=== PATIENT | male | born 1950 | race Caucasian/White ===

== ENCOUNTER → 2020-12-14 10:03 | Outpatient (POV) | payer MEDICARE, SELFPAY | PROVIDERS: Visit Provider Dermatology | DX: Z00.00 Encounter for general adult medical examination without abnormal findings (principal) ==

== ENCOUNTER → 2021-01-18 13:38 | Outpatient (POV) | payer MEDICARE, SELFPAY | PROVIDERS: Visit Provider Dermatology | DX: Z00.00 Encounter for general adult medical examination without abnormal findings (principal) ==

== ENCOUNTER → 2021-07-19 15:08 | Outpatient (POV) | payer MEDICARE, SELFPAY | PROVIDERS: Visit Provider Dermatology | DX: Z00.00 Encounter for general adult medical examination without abnormal findings (principal) ==

== ENCOUNTER → 2021-11-29 14:10 | Outpatient (CLI) | payer MEDICARE, SELFPAY ==
[2021-11-29 14:48] LABS: Basophils # 0.1 K/mm3 (0-0.2); Basophils % 0.9 % (0.1-2.0); Eosinophils # 0.6 K/mm3 (0.0-0.4); Eosinophils % 6.2 % (0.1-12.0); Hematocrit 42.4 % (42.0-52.0); Hemoglobin 13.6 g/dL (14.1-18.0); Lymphocytes # 2.1 K/mm3 (0.7-4.5); Lymphocytes % 22.4 % (10-50); Mean Corpuscular Hemoglobin 31.4 pg (27.0-31.2); Mean Corpuscular Volume 98.3 fl (80-94); Mean Platelet Volume 8.3 fl (7.4-10.4); Monocytes # 0.5 K/mm3 (0.1-1.0); Monocytes % 5.5 % (1.7-9.3); Neutrophils # 6.1 K/mm3 (1.8-7.8); Neutrophils % 65.1 % (37.0-80.0); Platelet Count 330 K/mm3 (142-424); Red Blood Count 4.31 M/mm3 (4.60-6.20); Red Cell Distribution Width 13.9 % (11.5-17.5); White Blood Count 9.4 K/mm3 (4.8-10.8)
[2021-11-29 15:10] LABS: Alanine Aminotransferase 15 U/L (12-78); Albumin Level 4.2 g/dl (3.5-5.0); Albumin/Globulin Ratio 1.4 (1.1-1.8); Alkaline Phosphatase 71 U/L (38-126); Anion Gap 17.4 mEq/L (5-15); Aspartate Amino Transferase 21 U/L (17-59); Bilirubin,Total 0.6 mg/dl (0.2-1.3); Blood Urea Nitrogen 27 mg/dl (9-20); Calcium 9.4 mg/dl (8.4-10.2); Carbon Dioxide 27 mmol/L (22.0-30.0); Chloride 101 mmol/L (98-107); Chol/HDL Ratio 4.1 (1-3.5); Cholesterol 120 mg/dl (140-200); Estimated Glomerular Filt Rate 54 ml/min (>60); GFR (African American) 66 ML/MIN (>60); Globulin 2.9 g/dL (1.3-3.2); Glucose 63 mg/dl (74-100); HDL Cholesterol 29 mg/dl (40-60); Potassium 5.4 mmoL/L (3.5-5.1); Sodium 140 mmol/L (136-145); Total Protein,Serum 7.1 g/dl (6.3-8.2); Triglycerides 98 mg/dl (30-150); VLDL Cholesterol 20 mg/dL (0-40)
[2021-11-29 15:21] LABS: Direct LDL Cholesterol 67.06 mg/dL (100-129)
[2021-11-29 15:36] LABS: Hemoglobin A1C 6.4 % (4.0-6.0)
== END ==
PROVIDERS: Visit Provider Internal Medicine
DX: E11.9 Type 2 diabetes mellitus without complications (principal); E78.5 Hyperlipidemia, unspecified
CPT/HCPCS: 80053; 80061; 83036; 85025

== ENCOUNTER → 2022-06-06 12:58 | Outpatient (CLI) | payer MEDICARE, SELFPAY ==
[2022-06-06 15:02] LABS: Hemoglobin A1C 6.4 % (4.0-6.0)
[2022-06-06 15:06] LABS: Alanine Aminotransferase 15 U/L (12-78); Albumin Level 3.8 g/dl (3.5-5.0); Albumin/Globulin Ratio 1.3 (1.1-1.8); Alkaline Phosphatase 85 U/L (38-126); Aspartate Amino Transferase 20 U/L (17-59); Bilirubin,Total 0.3 mg/dl (0.2-1.3); Blood Urea Nitrogen 27 mg/dl (9-20); Calcium 8.7 mg/dl (8.4-10.2); Carbon Dioxide 26 mmol/L (22.0-30.0); Chloride 101 mmol/L (98-107); Chol/HDL Ratio 4.6 (1-3.5); Cholesterol 114 mg/dl (140-200); Estimated Glomerular Filt Rate 54 ml/min (>60); GFR (African American) 66 ML/MIN (>60); Glucose 79 mg/dl (74-100); HDL Cholesterol 25 mg/dl (40-60); Sodium 141 mmol/L (136-145); Total Protein,Serum 6.8 g/dl (6.3-8.2); Triglycerides 113 mg/dl (30-150); VLDL Cholesterol 23 mg/dL (0-40)
[2022-06-06 15:17] LABS: Direct LDL Cholesterol 68.29 mg/dL (100-129)
[2022-06-06 15:37] LABS: Prostate Specific Ag Screen 0.3 ng/ml (0.0-4.0)
== END ==
PROVIDERS: PCP Internal Medicine; Visit Provider Internal Medicine
DX: E11.9 Type 2 diabetes mellitus without complications (principal); I10 Essential (primary) hypertension; M17.0 Bilateral primary osteoarthritis of knee; E66.01 Morbid (severe) obesity due to excess calories; Z12.5 Encounter for screening for malignant neoplasm of prostate
CPT/HCPCS: 80053; 80061; 83036; G0103

== ENCOUNTER → 2022-06-07 16:50 | Outpatient (CLI) | payer MEDICARE, SELFPAY ==
[2022-06-07 18:43] LABS: Microalbumin < 6.000 mg/L (0-16.7)
[2022-06-07 19:52] LABS: Creatinine,Urine Random 92 mg/dL (Not Estab.)
== END ==
PROVIDERS: PCP Internal Medicine; Visit Provider Internal Medicine
DX: E11.9 Type 2 diabetes mellitus without complications (principal); E66.01 Morbid (severe) obesity due to excess calories; N40.1 Benign prostatic hyperplasia with lower urinary tract symptoms
CPT/HCPCS: 82043; 82570

== ENCOUNTER → 2022-10-10 13:56 | Outpatient (POV) | payer MEDICARE, SELFPAY | PROVIDERS: Visit Provider Dermatology | DX: Z00.00 Encounter for general adult medical examination without abnormal findings (principal) ==

== ENCOUNTER → 2022-10-31 11:17 | Outpatient (CLI) | payer MEDICARE, SELFPAY ==
[2022-10-31 15:05] LABS: Anion Gap 13.6 mEq/L (5-15); Blood Urea Nitrogen 22 mg/dl (9-20); Carbon Dioxide 23 mmol/L (22.0-30.0); Chloride 108 mmol/L (98-107); Estimated Glomerular Filt Rate 60 ml/min (>60); GFR (African American) 72 ML/MIN (>60); Glucose 136 mg/dl (74-100); Potassium 4.6 mmoL/L (3.5-5.1); Sodium 140 mmol/L (136-145)
== END ==
PROVIDERS: Dermatology MOHS-Micrographic Surgery; PCP Internal Medicine
DX: C44.90 Unspecified malignant neoplasm of skin, unspecified (principal)
CPT/HCPCS: 36415; 80048

== ENCOUNTER → 2022-11-15 08:51 | Outpatient (CLI) | payer MEDICARE, SELFPAY ==
--- NOTE | 2022-11-15 08:58 | CT_ITS ---
FINAL REPORT TECHNIQUE: Thin section axial CT images were obtained through the neck after intravenous contrast administration. Coronal and sagittal reformats were also obtained. This study was performed with techniques to keep radiation doses as low as reasonably achievable (ALARA). Individualized dose reduction techniques using automated exposure control or adjustment of mA and/or kV according to the patient''s size were employed. CLINICAL HISTORY: LYMPH NODE METS, hx skin cancer. FINDINGS: There are multiple small bilateral neck nodes without evidence of adenopathy. No neck mass is identified. There is no abnormal fluid collection. IMPRESSION: No acute process. Reviewed, Interpreted and Dictated by Rg Dominguez III, MD Transcribed by Nadia Velasquez Authenticated and [facility]
== END ==
PROVIDERS: PCP Internal Medicine; Visit Provider Dermatology MOHS-Micrographic Surgery
DX: C44.90 Unspecified malignant neoplasm of skin, unspecified (principal)
CPT/HCPCS: 70491; Q9967

== ENCOUNTER → 2022-12-13 12:57 | Outpatient (CLI) | payer MEDICARE, SELFPAY ==
[2022-12-13 15:39] LABS: Hemoglobin A1C 6.6 % (4.0-6.0)
[2022-12-13 16:23] LABS: Alanine Aminotransferase 14 U/L (12-78); Albumin Level 4.1 g/dl (3.5-5.0); Albumin/Globulin Ratio 1.4 (1.1-1.8); Alkaline Phosphatase 75 U/L (38-126); Anion Gap 14.8 mEq/L (5-15); Aspartate Amino Transferase 22 U/L (17-59); Bilirubin,Total 0.7 mg/dl (0.2-1.3); Blood Urea Nitrogen 25 mg/dl (9-20); Calcium 8.8 mg/dl (8.4-10.2); Carbon Dioxide 25 mmol/L (22.0-30.0); Chloride 101 mmol/L (98-107); Chol/HDL Ratio 4.3 (1-3.5); Cholesterol 125 mg/dl (140-200); Estimated Glomerular Filt Rate 60 ml/min (>60); GFR (African American) 72 ML/MIN (>60); Glucose 55 mg/dl (74-100); HDL Cholesterol 29 mg/dl (40-60); Potassium 4.8 mmoL/L (3.5-5.1); Sodium 136 mmol/L (136-145); Total Protein,Serum 7.1 g/dl (6.3-8.2); Triglycerides 141 mg/dl (30-150); VLDL Cholesterol 28 mg/dL (0-40)
[2022-12-13 16:34] LABS: Direct LDL Cholesterol 72.71 mg/dL (100-129)
[2022-12-13 16:56] LABS: Prostate Specific Ag Screen 0.3 ng/ml (0.0-4.0)
== END ==
PROVIDERS: PCP Internal Medicine; Visit Provider Internal Medicine
DX: E11.9 Type 2 diabetes mellitus without complications (principal); E78.5 Hyperlipidemia, unspecified; I10 Essential (primary) hypertension; M17.0 Bilateral primary osteoarthritis of knee; N40.1 Benign prostatic hyperplasia with lower urinary tract symptoms; E66.01 Morbid (severe) obesity due to excess calories; Z68.41 Body mass index [BMI] 40.0-44.9, adult; Z12.5 Encounter for screening for malignant neoplasm of prostate
CPT/HCPCS: 80053; 80061; 83036; G0103

== ENCOUNTER → 2022-12-15 12:52 | Outpatient (CLI) | payer MEDICARE, SELFPAY ==
[2022-12-15 16:04] LABS: Creatinine,Urine Random 98 mg/dL (Not Estab.)
[2022-12-15 16:09] LABS: Microalbumin/Creatinine Ratio 9.2
== END ==
PROVIDERS: PCP Internal Medicine; Visit Provider Internal Medicine
DX: E11.9 Type 2 diabetes mellitus without complications (principal); I10 Essential (primary) hypertension
CPT/HCPCS: 82043; 82570

== ENCOUNTER → 2023-06-12 12:13 | Outpatient (CLI) | payer MEDICARE, SELFPAY ==
[2023-06-12 13:22] LABS: Basophils # 0.1 K/mm3 (0-0.2); Basophils % 0.6 % (0.1-2.0); Eosinophils # 0.5 K/mm3 (0.0-0.4); Eosinophils % 5.4 % (0.1-12.0); Hematocrit 41.5 % (42.0-52.0); Hemoglobin 12.8 g/dL (14.1-18.0); Lymphocytes # 2.2 K/mm3 (0.7-4.5); Lymphocytes % 22.4 % (10-50); Mean Corpuscular HGB Conc 30.9 g/dL (31.8-35.4); Mean Corpuscular Hemoglobin 28.8 pg (27.0-31.2); Monocytes # 0.6 K/mm3 (0.1-1.0); Monocytes % 5.8 % (1.7-9.3); Neutrophils # 6.5 K/mm3 (1.8-7.8); Neutrophils % 65.9 % (37.0-80.0); Platelet Count 373 K/mm3 (142-424); Red Blood Count 4.46 M/mm3 (4.60-6.20); Red Cell Distribution Width 14.4 % (11.5-17.5); White Blood Count 9.8 K/mm3 (4.8-10.8)
[2023-06-12 13:51] LABS: Chloride 105 mmol/L (98-107); Sodium 142 mmol/L (136-145)
[2023-06-12 13:54] LABS: Alanine Aminotransferase 17 U/L (12-78); Albumin Level 3.8 g/dl (3.5-5.0); Albumin/Globulin Ratio 1.1 (1.1-1.8); Alkaline Phosphatase 78 U/L (38-126); Aspartate Amino Transferase 20 U/L (17-59); Bilirubin,Total 0.5 mg/dl (0.2-1.3); Blood Urea Nitrogen 30 mg/dl (9-20); Carbon Dioxide 24 mmol/L (22.0-30.0); Cholesterol 132 mg/dl (140-200); Estimated Glomerular Filt Rate 54 ml/min (>60); GFR (African American) 66 ML/MIN (>60); Globulin 3.4 g/dL (1.3-3.2); Total Protein,Serum 7.2 g/dl (6.3-8.2); Triglycerides 111 mg/dl (30-150); VLDL Cholesterol 22 mg/dL (0-40)
[2023-06-12 13:55] LABS: Calcium 8.9 mg/dl (8.4-10.2); Chol/HDL Ratio 5.5 (1-3.5); Glucose 88 mg/dl (74-100); HDL Cholesterol 24 mg/dl (40-60)
[2023-06-12 14:05] LABS: Hemoglobin A1C 6.7 % (4.0-6.0)
== END ==
PROVIDERS: PCP Internal Medicine; Visit Provider Internal Medicine
DX: E11.9 Type 2 diabetes mellitus without complications (principal); I10 Essential (primary) hypertension; E78.5 Hyperlipidemia, unspecified; M17.0 Bilateral primary osteoarthritis of knee; N40.1 Benign prostatic hyperplasia with lower urinary tract symptoms
CPT/HCPCS: 80053; 80061; 83036; 85025

== ENCOUNTER → 2023-06-26 12:39 | Outpatient (CLI) | payer MEDICARE, SELFPAY ==
[2023-06-26 15:07] LABS: Creatinine,Urine Random 75 mg/dL (Not Estab.)
[2023-06-26 15:12] LABS: Microalbumin < 6.000 mg/L (0-16.7)
== END ==
PROVIDERS: PCP Internal Medicine; Visit Provider Internal Medicine
DX: E11.9 Type 2 diabetes mellitus without complications (principal); I10 Essential (primary) hypertension; E78.5 Hyperlipidemia, unspecified; M17.0 Bilateral primary osteoarthritis of knee; N40.1 Benign prostatic hyperplasia with lower urinary tract symptoms
CPT/HCPCS: 82043; 82570

== ENCOUNTER 2023-09-24 11:11 | Emergency (ER) | payer MEDICARE, SELFPAY ==
[2023-09-24 12:50] VITALS: BP 136/73; PULSE 84; RESP 21; TEMP 36.9; O2SAT 96; BMI 47.4
--- NOTE | 2023-09-24 13:04 | EXP.UTC ---
Discharge Plan Disposition Patient Disposition: Home, Self-Care Condition: Good Referrals Follow up/Referrals: Nader Fields MD [Primary Care Provider] - See instructions Activity Restrictions/Add. Instructions Additional Instructions/Restrictions: Over the counter Cough and cold medications may help with symptoms, where you are on so many medications make sure to speak with the pharmacist about what is safe for you to take with your current medications *Monitor Temp, Over the counter Motrin or Tylenol as directed/as needed Tylenol every 4 hours and Motrin every 6 hours (as long as your family doctor has told you that you can take it) for fever or pain. and straight to ER if unable to lower temp less than 101.0 after medication given *Warm salt water gargles may help to soothe the throat *Throat Lozenges? *Warm fluids like tea with honey may help to soothe the throat? *Sleep elevated *Humidifier/Vaporizer Follow up IMMEDIATELY for new or worsening symptoms or no Noticeable improvement over the next 48-72 hours. 911 for difficulty breathing or swallowing You were tested for today for COVID19 your test result should be back in the next 24-72 hours, you may check your results on the [facility] Portal if your COVID is positive you must Q Clinical Impressions Clinical Impression: Exposure to COVID-19 virus Instructions Patient Instructions: DI for Nasal Congestion, DI for COVID-19 (Suspected or Confirmed ) Discharge ED Provider: Honey Harry [facility] HPI General Stated complaint: sore throat, runny nose, cough, weakness Mode of Arrival: Ambulatory Source of Information: Patient Limitations: No Limitations Time Seen by Provider: 09/24/23 13:04 Description of Symptoms (Recalled from Triage Doc. by RN): PATIENT C/O SOA AND WEAKNESS X 2 DAYS. CURRENTLY HAS COVID HEENT Symptoms (Recalled from RN notes): No Resp Symptoms (Recalled from RN notes): Yes Skin Symptoms (Recalled from RN notes): No MS Symptoms (Recalled from RN notes): No Functional Status (Recalled from RN notes): WNL History of Present Illness Provider Complaint: Patient states that he cannot breath out of his nose and makes him feel SOA at times, achy, chills, feeling tired States that his has COVID right now and he is worried that he may have it now too wanting to get tested Related Data Allergies Allergy/AdvReac Type Severity Reaction Status Date / Time No Known Allergies Allergy Verified 09/24/23 13:03 Worker's Comp Is this a Worker's Comp case?: No [facility] Disclaimer: The information contained in this section may have been updated after the patient was seen, as this information can be updated by other users. Social History Smoking Status: Unknown if ever smoked alcohol intake: never current occupational status: retired Travel in the last 8 weeks: None ROS Obtained: Yes All systems reviewed & no additional complaints except as documented and Yes Systems reviewed as appropriate & no additional complaints except as documented Constitutional Constitutional: Reports system reviewed and no additional complaints, except as documented, Reports as per HPI, Reports body ache, Reports chills and Reports fatigue ENT Ears, Nose, Mouth, and Throat: Reports system reviewed and no additional complaints, except as documented, Reports as per HPI and Reports nasal congestion Cardiovascular Cardiovascular: Reports system reviewed and no additional complaints, except as documented and Reports as per HPI Respiratory Respiratory: Reports system reviewed and no additional complaints, except as documented, Reports as per HPI and Reports shortness of breath (feels SOA at times ) Gastrointestinal Gastrointestingal: Reports system reviewed and no additional complaints, except as documented and as per HPI Musculoskeletal Musculoskeletal: Reports system reviewed and no additional complaints, except as documented and Reports as per HPI Integumentary/Breasts Skin/Breast: Reports system reviewed and no additional complaints, except as documented and Reports as per HPI Endocrine Endocrine: Reports fatigue Physical Exam General General appearance: alert and in no apparent distress ENT ENT exam: Present mucous membranes moist Expanded ENT Exam Nose exam: Present sinus tenderness Throat exam: Present normal inspection Respiratory Respiratory exam: Present normal lung sounds bilaterally; Absent respiratory distress or wheezes Cardiovascular Cardiovascular exam: Present regular rate, normal rhythm and normal heart sounds Neurological Exam Neurological exam: Present alert, oriented X3 and normal gait Medical Decision Making Terry Inquiry Pt receiving controlled substance: No Terry was queried for this patient: No Vital Signs: 09/24/23 12:50 Temperature 98.4 F Temperature Source Oral Pulse Rate [Left Brachial] 84 Respiratory Rate 21 Blood Pressure [Left Arm] 136/73 Blood Pressure Mean [Left Arm] 94 Blood Pressure Source [Left Arm] Automatic Cuff Blood Pressure Position [Left Arm] Sitting 02 Sat by Pulse Oximetry 96 Oxygen Delivery Method Room Air
[2023-09-24 13:16] VITALS: BP 136/73; PULSE 84; RESP 21; TEMP 36.9; O2SAT 96
[2023-09-24 13:21] LABS: Influenza A, PCR Not Detected (NotDetected); Influenza B, PCR Not Detected (NotDetected)
[2023-09-24 13:54] LABS: Coronavirus 19, PCR Detected (NotDetected)
== END 2023-09-24 13:22 | disposition home or self-care (01) ==
PROVIDERS: Emergency Provider Nurse Practitioner; PCP Internal Medicine
DX: U07.1 COVID-19 (principal); R06.02 Shortness of breath; R07.0 Pain in throat; R09.81 Nasal congestion; R05.9 Cough, unspecified; R53.83 Other fatigue; M79.18 Myalgia, other site
CPT/HCPCS: 87636; 99203; 99212; G0463

== ENCOUNTER 2023-11-09 11:45 | Outpatient (CLI) | payer MEDICARE, SELFPAY ==
[2023-11-09 12:14] LABS: Basophils % 0.4 % (0.1-2.0); Eosinophils # 0.5 K/mm3 (0.0-0.4); Eosinophils % 5.7 % (0.1-12.0); Hematocrit 35.8 % (42.0-52.0); Hemoglobin 11.9 g/dL (14.1-18.0); Lymphocytes # 2.1 K/mm3 (0.7-4.5); Lymphocytes % 22.7 % (10-50); Mean Corpuscular HGB Conc 33.3 g/dL (31.8-35.4); Mean Corpuscular Hemoglobin 29.6 pg (27.0-31.2); Mean Corpuscular Volume 88.8 fl (80-94); Mean Platelet Volume 7.7 fl (7.4-10.4); Monocytes # 0.5 K/mm3 (0.1-1.0); Monocytes % 5.1 % (1.7-9.3); Neutrophils % 66.2 % (37.0-80.0); Platelet Count 318 K/mm3 (142-424); Red Blood Count 4.03 M/mm3 (4.60-6.20); Red Cell Distribution Width 15.8 % (11.5-17.5)
[2023-11-09 12:48] LABS: Alanine Aminotransferase 13 U/L (12-78); Albumin Level 3.8 g/dl (3.5-5.0); Albumin/Globulin Ratio 1.2 (1.1-1.8); Alkaline Phosphatase 77 U/L (38-126); Anion Gap 12.6 mEq/L (5-15); Aspartate Amino Transferase 19 U/L (17-59); Bilirubin,Total 0.5 mg/dl (0.2-1.3); Blood Urea Nitrogen 18 mg/dl (9-20); Carbon Dioxide 26 mmol/L (22.0-30.0); Chloride 107 mmol/L (98-107); Chol/HDL Ratio 4.7 (1-3.5); Cholesterol 117 mg/dl (140-200); Estimated Glomerular Filt Rate 66 ml/min (>60); GFR (African American) 79 ML/MIN (>60); Globulin 3.2 g/dL (1.3-3.2); Glucose 62 mg/dl (74-100); HDL Cholesterol 25 mg/dl (40-60); Potassium 4.6 mmoL/L (3.5-5.1); Sodium 141 mmol/L (136-145); Triglycerides 117 mg/dl (30-150); VLDL Cholesterol 23 mg/dL (0-40)
[2023-11-09 13:01] LABS: Direct LDL Cholesterol 68.43 mg/dL (100-129)
[2023-11-09 13:19] LABS: Prostate Specific Ag Screen 0.3 ng/ml (0.0-4.0)
[2023-11-09 15:33] LABS: Hemoglobin A1C 6.3 % (4.0-6.0)
== END 2023-11-09 23:59 ==
LOC: LAB.DROPOF 11:49
PROVIDERS: PCP Internal Medicine; Visit Provider Internal Medicine
DX: E11.9 Type 2 diabetes mellitus without complications (principal); Z12.5 Encounter for screening for malignant neoplasm of prostate; E66.01 Morbid (severe) obesity due to excess calories; E78.5 Hyperlipidemia, unspecified; I10 Essential (primary) hypertension; M17.0 Bilateral primary osteoarthritis of knee
CPT/HCPCS: 80053; 80061; 83036; 85025; G0103

== ENCOUNTER 2023-12-04 14:58 | Outpatient (POV) | payer MEDICARE, SELFPAY ==
[2023-12-04 16:56] LABS: Reticulocyte % (Auto) 1.3 % (0.9-3.2)
[2023-12-04 18:02] LABS: Vitamin B12 < 159 pg/mL (239-931)
[2023-12-04 18:10] LABS: Iron 48 ug/dL (49-181)
[2023-12-04 18:24] LABS: Total Iron Binding Capacity 384 ug/dL (261-462)
== END 2023-12-04 23:59 | disposition home or self-care (01) ==
PROVIDERS: PCP Internal Medicine; Visit Provider Dermatology
DX: D64.9 Anemia, unspecified (principal)
CPT/HCPCS: 82607; 83540; 83550; 85044

== ENCOUNTER 2023-12-13 10:33 | Emergency (ER) | payer MEDICARE, SELFPAY ==
--- NOTE | 2023-12-13 10:40 | PC.NURSE ---
in room talking with patient at this time.
[2023-12-13 10:44] VITALS: BP 142/74; PULSE 70; RESP 22; TEMP 36.6; O2SAT 94; BMI 46.0
[2023-12-13] MEDS: METHOCARBAMOL 500MG TABLET 750 MG PO (10:57)
[2023-12-13] MEDS: DEXAMETHASONE 4MG/ML 1ML VIAL 10 MG IV (10:57)
--- NOTE | 2023-12-13 10:59 | XR_ITS ---
FINAL REPORT CLINICAL HISTORY: BL LE edema, fatigue FINDINGS: SINGLE-VIEW CHEST There is cardiomegaly with mild pulmonary vascular congestion. There is an elevated right hemidiaphragm. There is right base atelectasis. There is no pneumothorax. IMPRESSION: Right base atelectasis. Cardiomegaly with pulmonary vascular congestion. Reviewed, Interpreted and Dictated by Rg Dominguez III, MD Transcribed by Nadia Velasquez Authenticated and . [facility]
--- NOTE | 2023-12-13 11:00 | HMH.EDGENADL ---
Discharge Plan Disposition Patient Disposition: Home, Self-Care Prescriptions Prescriptions: New prednisone 20 mg tablet 40 mg PO DAILY 5 Days Qty: 10 0RF methocarbamol 750 mg tablet 1,500 mg PO TID 5 Days Qty: 30 0RF Referrals Follow up/Referrals: Nader Fields MD [Primary Care Provider] - See instructions Activity Restrictions/Add. Instructions Additional Instructions/Restrictions: Talk to Dr. Fields about continuing methocarbamol in place of tizanidine for muscle relaxation. 40 mg prednisone every morning for the next 5 days. 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 Also talk to Dr. Fields about increasing your diuretic medication and decreasing/discontinuing amlodipine, as this can cause lower extremity swelling to worsen. If you have any worsening of your condition or any other concerning signs or symptoms, return to the emergency department or your primary care doctor for further evaluation. Clinical Impressions Clinical Impression: Dependent edema, Left sciatic nerve pain Discharge ED Provider: Andres Brown General Adult HPI General Chief complaint: Extremity Problem,Nontraumatic Stated complaint: Pain and swelling from Left hip down leg Time Seen by Provider: 12/13/23 10:36 Mode of Arrival: Wheelchair Source of Information: Patient and Spouse Limitations: Physical Limitations Description of Symptoms (Recalled from ER Triage Doc. by RN): left leg pain History of Present Illness HPI narrative: This is a 73-year-old male history of hypertension, hyperlipidemia, diabetes, osteoarthritis in his knees currently receiving injections with gel filler presenting with left lower extremity and back pain. Patient states that he has been progressively worsening swelling in his lower extremities, left greater than right. Over the past few days it has been difficult for him to get around secondary to the swelling. Yesterday, 12/11 into today, 12/12 patient was having difficulty sleeping secondary to pain that was radiating from posterior aspect of his left hip down his left leg. States it feels like a hot fireball, rating down his leg primarily down his buttock then left lateral/anterior thigh. No lower extremity weakness, bowel or bladder dysfunction, or any other concerns. Due to recent injections, concerned about fluid retention versus DVT. Patient denies PND, orthopnea, fevers or chills, history of DVT or PE, or any other concerns. Please note that above description of symptoms, in this electronic medical record under categorization of recalled from ER triage doctor by RN are reflective of an initial nursing assessment, however, is not reflective of my full history and physical exam that was personally taken and clarified. Consequentially, this preceding description of symptoms, which may include the patient's categorized chief complaint in the EMR, do not reflect my personal clinical impression, and the ultimate description of history of present illness and patient stated complaints should be deferred to this section of the note. Unless stated otherwise or congruent with this section of the note, additional signs, symptoms, or incongruence should be interpreted as inaccurate with my clinical impression. Related Data Previous Rx's Medication Instructions Recorded methocarbamol 750 mg tablet 1,500 mg (2 x 750 mg) PO TID 5 12/13/23 days #30 tabs prednisone 20 mg tablet 40 mg (2 x 20 mg) PO DAILY 5 days 12/13/23 #10 tabs Allergies Allergy/AdvReac Type Severity Reaction Status Date / Time No Known Allergies Allergy Verified 09/24/23 13:03 [facility] Disclaimer: The information contained in this section may have been updated after the patient was seen, as this information can be updated by other users. Social History (Updated 09/24/23 @ 19:15 by Honey Harry APRN) Smoking Status: Never smoker alcohol intake: never current occupational status: retired Travel in the last 8 weeks: None ROS Obtained: Yes All systems reviewed & no additional complaints except as documented Physical Exam General General appearance: alert and in no apparent distress Head Head exam: atraumatic and normocephalic Eye Eye exam: Present normal appearance, PERRL and EOMI ENT ENT exam: Present mucous membranes moist Neck Neck exam: Present normal inspection, full ROM and trachea midline Respiratory Respiratory exam: Present normal lung sounds bilaterally; Absent respiratory distress, wheezes, stridor, accessory muscle use or prolonged expiratory phase Cardiovascular Cardiovascular exam: Present regular rate and normal rhythm Abdominal Exam Abdominal exam: Present soft; Absent distention, tenderness, guarding, rebound or rigidity Extremities Exam Extremities exam: Present edema (L 2+ pitting, R 1+ pitting. non erythematous or tender) Neurological Exam Neurological exam: Present alert, oriented X3, CN II-XII intact and normal gait; Absent motor sensory deficit Skin Skin exam: Present warm and dry; Absent diaphoresis or erythema Medical Decision Making Medical Records Medical records reviewed: Yes I reviewed the patient's medical records. Terry Inquiry Pt receiving controlled substance: No Terry was queried for this patient: No Vital Signs: 12/13/23 10:44 12/13/23 11:40 12/13/23 11:45 Temperature 97.9 F Temperature Source Oral Pulse Rate 77 68 Pulse Rate [Right] 70 Respiratory Rate 22 Blood Pressure 149/77 H 145/80 H Blood Pressure [Right Arm] 142/74 H Blood Pressure Mean [Right Arm] 96 02 Sat by Pulse Oximetry 94 L 94 L 95 Oxygen Delivery Method Room Air Room Air Room Air 12/13/23 12:00 12/13/23 12:09 Temperature 98.3 F Temperature Source Oral Pulse Rate 70 70 Pulse Rate [Right] Respiratory Rate 20 Blood Pressure 148/78 H 148/78 H Blood Pressure [Right Arm] Blood Pressure Mean [Right Arm] 02 Sat by Pulse Oximetry 93 L Oxygen Delivery Method Room Air Room Air Lab Data Lab Results 12/13/23 10:50: WBC 7.9, RBC 3.92 L, Hgb 11.3 L, Hct 36.8 L, MCV 94.0, MCH 28.9, MCHC 30.8 L, RDW 16.0, Plt Count 326, MPV 7.6, Neut % (Auto) 61.6, Lymph % (Auto) 26.2, [place] % (Auto) 6.0, Eos % (Auto) 5.4, Baso % (Auto) 0.7, Neut # (Auto) 4.9, Lymph # (Auto) 2.1, [place] # (Auto) 0.5, Eos # (Auto) 0.4, Baso # (Auto) 0.1, Sodium 139, Potassium 4.9, Chloride 106, Carbon Dioxide 27, Anion Gap 10.9, BUN 27 H, Creatinine 1.10, Estimated Creat Clear 66, Estimated GFR 66, Est GFR ( Amer) 79, Glucose 87, Calcium 8.9, Total Bilirubin 0.7, AST 48, ALT 23, Alkaline Phosphatase 68, NT-Pro-B Natriuret Pep 337 H, Total Protein 7.6, Albumin 4.0, Globulin 3.6 H, Albumin/Globulin Ratio 1.1 12/13/23 10:50 12/13/23 10:50 Orders (Tests/Meds): ED MEDICATIONS Discontinued Medications Generic Name Dose Route Start Last Admin Trade Name Freq PRN Reason Stop Dose Admin Dexamethasone Sodium Phosphate 10 mg 12/13/23 10:48 12/13/23 10:57 Dexamethasone 4mg/Ml 1ml Vial IV 12/13/23 10:49 10 mg ONCE ONE Administration Methocarbamol 750 mg 12/13/23 10:48 12/13/23 10:57 Methocarbamol 500mg Tablet PO 12/13/23 10:49 750 mg ONCE ONE Administration ORDERS Category Date Time Status CXR --portable [XR chest portable] Stat Exams 12/13/23 10:59 Completed POCUS Point of Care (ER Only) Stat Exams 12/13/23 10:38 Completed Brain Natriuretic Peptide Stat Lab 12/13/23 10:50 Completed CBC w/Auto Diff [Complete Blood Count Auto Diff] Stat Lab 12/13/23 10:50 Completed CMP [Comprehensive Metabolic Panel] Stat Lab 12/13/23 10:50 Completed Medical Decision Narrative: This is a 73-year-old male history of hypertension, hyperlipidemia, diabetes, osteoarthritis in his knees currently receiving injections with gel filler presenting with left lower extremity and back pain. Patient states that he has been progressively worsening swelling in his lower extremities, left greater than right. Over the past few days it has been difficult for him to get around secondary to the swelling. Yesterday, 12/11 into today, 12/12 patient was having difficulty sleeping secondary to pain that was radiating from posterior aspect of his left hip down his left leg. States it feels like a hot fireball, rating down his leg primarily down his buttock then left lateral/anterior thigh. No lower extremity weakness, bowel or bladder dysfunction, or any other concerns. Due to recent injections, concerned about fluid retention versus DVT. Patient denies PND, orthopnea, fevers or chills, history of DVT or PE, or any other concerns. History was obtained via conversation with patient and family. On arrival, patient hemodynamically stable, alert, oriented x4, appropriate, GCS 15, moving all extremities spontaneously, pupils equal and reactive to light. Full physical exam performed and significant for chronically ill-appearing male in no acute distress. Obese. Bilateral lower extremity edema, left greater than right. Left is 2+ pitting edema without erythema or tenderness, right is 1+ pitting edema with no tenderness or erythema. Left visibly larger than right as well. Patient has tenderness along the left sciatic notch extending down left buttock. Neurovascularly intact, but hip flexion and extension limited secondary to pain radiating from his back down his leg. Differential includes DVT, fluid retention/CHF, dependent edema, reaction to injections, medication underdosing, among others. Workup independently interpreted and significant for nonactionable CBC or chemistry. BNP nonactionable. Chest x-ray with cardiomegaly, but no overt pulmonary edema or effusions. See radiology read for full review of final results. Bedside left lower extremity ultrasound with good compressibility of veins from common femoral vein down through mid calf veins. Arterial flow intact. Patient does have soft tissue edema from the knee distally. Given patient presentation, workup, history, this most likely represents sciatic nerve pain in the setting of lower extremity edema. Because patient at baseline without signs or symptoms of clinical decompensation, deemed appropriate for discharge. Results were relayed to patient who voiced understanding and were agreeable to outpatient management and follow up. I discussed my clinical impression with patient and answered all questions. At this time, the evidence for any other entities in the differential is insufficient to warrant any further testing or ED observation. This was explained as well. Advisory was given that persistent or worsening symptoms require further evaluation. I confirmed the understanding of this discussion. Procedures Limited Ultrasound Indication:: Limited DVT ultrasound Indication: Limited compression ultrasonography of the left lower extremity was performed to evaluate for non-compressibility of the deep veins in the patient. The ultrasound was performed with the following indications, as noted in the H&P: L leg swelling compared to right Identified structures: Left common femoral vein, femoral vein, popliteal vein were examined. Findings: Left CFV: Good compressibility Left FV good compressibility Left Popliteal vein: Good compressibility Impression: Good compressibility common femoral through calf veins Images were saved to permanent archive The study was technically adequate CPT: 90872-15-AZ [id number]-PS 27472-96 (complete bilateral study) This study was performed by me, and I personally interpreted all images/videos. Based on my clinical judgement, these images were adequate and did not necessitate further imaging. Critical Care Critical Care Time Critical Care Time: No
--- NOTE | 2023-12-13 11:18 | PC.NURSE ---
portable xray at bedside
[2023-12-13 11:20] LABS: Basophils # 0.1 K/mm3 (0-0.2); Basophils % 0.7 % (0.1-2.0); Eosinophils # 0.4 K/mm3 (0.0-0.4); Eosinophils % 5.4 % (0.1-12.0); Hematocrit 36.8 % (42.0-52.0); Hemoglobin 11.3 g/dL (14.1-18.0); Lymphocytes # 2.1 K/mm3 (0.7-4.5); Lymphocytes % 26.2 % (10-50); Mean Corpuscular HGB Conc 30.8 g/dL (31.8-35.4); Mean Corpuscular Hemoglobin 28.9 pg (27.0-31.2); Mean Platelet Volume 7.6 fl (7.4-10.4); Monocytes # 0.5 K/mm3 (0.1-1.0); Neutrophils # 4.9 K/mm3 (1.8-7.8); Neutrophils % 61.6 % (37.0-80.0); Platelet Count 326 K/mm3 (142-424); Red Blood Count 3.92 M/mm3 (4.60-6.20); White Blood Count 7.9 K/mm3 (4.8-10.8)
[2023-12-13 11:31] LABS: Chloride 106 mmol/L (98-107)
[2023-12-13 11:32] LABS: Potassium 4.9 mmoL/L (3.5-5.1); Sodium 139 mmol/L (136-145)
[2023-12-13 11:34] LABS: Alanine Aminotransferase 23 U/L (12-78); Alkaline Phosphatase 68 U/L (38-126); Aspartate Amino Transferase 48 U/L (17-59); Bilirubin,Total 0.7 mg/dl (0.2-1.3); Blood Urea Nitrogen 27 mg/dl (9-20); Creatinine Clearance Estimated 66 mL/min (50-200); Estimated Glomerular Filt Rate 66 ml/min (>60); GFR (African American) 79 ML/MIN (>60)
--- NOTE | 2023-12-13 11:34 | PC.NURSE ---
provided pt with a warm blanket
[2023-12-13 11:35] LABS: Albumin/Globulin Ratio 1.1 (1.1-1.8); Anion Gap 10.9 mEq/L (5-15); Calcium 8.9 mg/dl (8.4-10.2); Carbon Dioxide 27 mmol/L (22.0-30.0); Globulin 3.6 g/dL (1.3-3.2); Glucose 87 mg/dl (74-100); Total Protein,Serum 7.6 g/dl (6.3-8.2)
[2023-12-13 11:40] VITALS: BP 149/77; PULSE 77; O2SAT 94
[2023-12-13 11:43] LABS: NT Pro Brain Natriuretic Pep. 337 pg/mL (0-125)
[2023-12-13 11:45] VITALS: BP 145/80; PULSE 68; O2SAT 95
[2023-12-13 12:00] VITALS: BP 148/78; PULSE 70; O2SAT 93
[2023-12-13 12:09] VITALS: BP 148/78; PULSE 70; RESP 20; TEMP 36.8; O2SAT 93
--- NOTE | 2023-12-13 12:21 | PC.NURSE ---
did extensive dietary education with pt and his .
== END 2023-12-13 12:18 | disposition home or self-care (01) ==
PROVIDERS: Emergency Provider Emergency Medicine; PCP Internal Medicine
DX: M54.42 Lumbago with sciatica, left side (principal); R60.9 Edema, unspecified; I10 Essential (primary) hypertension; E78.5 Hyperlipidemia, unspecified; E11.9 Type 2 diabetes mellitus without complications; M17.0 Bilateral primary osteoarthritis of knee; M79.605 Pain in left leg
CPT/HCPCS: 71045; 80053; 83880; 85025; 96374; 99285

== ENCOUNTER 2024-04-03 08:48 | Outpatient (CLI) | payer MEDICARE, SELFPAY ==
--- NOTE | 2024-04-03 08:56 | XR_ITS ---
FINAL REPORT CLINICAL HISTORY: right knee pain COMPARISON: None FINDINGS: Three views of the right knee reveal no evidence of fracture or dislocation. There is severe tricompartment narrowing in the right knee. Mild lateral subluxation of the tibia in relation to the distal femur is noted. A moderate joint effusion is present. Vascular calcifications are noted as well. IMPRESSION: Severe tricompartment degenerative changes present, with a moderate size joint effusion and mild lateral subluxation of the proximal tibia. Reviewed, Interpreted and Dictated by Rg Dominguez III, MD Transcribed by Coleen Poole Authenticated and [facility]
--- NOTE | 2024-04-03 08:56 | XR_ITS ---
FINAL REPORT CLINICAL HISTORY: Left knee pain COMPARISON: None FINDINGS: Three views of the left knee reveal no evidence of fracture or dislocation. The bony alignment is normal. Moderate and severe degenerative changes are present, with severe narrowing of the medial compartment. There is no evidence of joint effusion. Vascular calcifications are identified. IMPRESSION: Moderate and severe degenerative change in the left knee, with severe narrowing of the medial compartment. Reviewed, Interpreted and Dictated by Rg Dominguez III, MD Transcribed by Coleen Poole Authenticated and [facility]
== END 2024-04-03 23:59 | disposition home or self-care (01) ==
LOC: RAD 08:50
PROVIDERS: PCP Internal Medicine; Visit Provider Orthopaedic Surgery
DX: M25.561 Pain in right knee (principal); M25.562 Pain in left knee
CPT/HCPCS: 73562

== ENCOUNTER 2024-05-15 16:48 | Outpatient (CLI) | payer MEDICARE, SELFPAY ==
[2024-05-15 17:03] LABS: Basophils # 0.1 K/mm3 (0-0.2); Basophils % 0.5 % (0.1-2.0); Eosinophils # 0.4 K/mm3 (0.0-0.4); Eosinophils % 4.5 % (0.1-12.0); Hematocrit 41.5 % (42.0-52.0); Hemoglobin 12.8 g/dL (14.1-18.0); Lymphocytes # 1.9 K/mm3 (0.7-4.5); Lymphocytes % 23.5 % (10-50); Mean Corpuscular HGB Conc 30.8 g/dL (31.8-35.4); Mean Corpuscular Hemoglobin 28.7 pg (27.0-31.2); Mean Platelet Volume 8.4 fl (7.4-10.4); Monocytes # 0.5 K/mm3 (0.1-1.0); Monocytes % 6.3 % (1.7-9.3); Neutrophils # 5.4 K/mm3 (1.8-7.8); Neutrophils % 65.2 % (37.0-80.0); Platelet Count 391 K/mm3 (142-424); Red Blood Count 4.46 M/mm3 (4.60-6.20); Red Cell Distribution Width 15.8 % (11.5-17.5); White Blood Count 8.2 K/mm3 (4.8-10.8)
[2024-05-15 18:04] LABS: Hemoglobin A1C 6.3 % (4.0-6.0)
[2024-05-15 18:07] LABS: Alanine Aminotransferase 12 U/L (12-78); Anion Gap 13.3 mEq/L (5-15); Aspartate Amino Transferase 22 U/L (17-59); Bilirubin,Total 0.6 mg/dl (0.2-1.3); Blood Urea Nitrogen 25 mg/dl (9-20); Calcium 9.4 mg/dl (8.4-10.2); Carbon Dioxide 27 mmol/L (22.0-30.0); Chloride 105 mmol/L (98-107); Estimated Glomerular Filt Rate 54 ml/min (>60); GFR (African American) 65 ML/MIN (>60); Glucose 57 mg/dl (74-100); Potassium 5.3 mmoL/L (3.5-5.1); Sodium 140 mmol/L (136-145); Total Protein,Serum 7.5 g/dl (6.3-8.2)
[2024-05-15 18:08] LABS: Albumin/Globulin Ratio 1.1 (1.1-1.8); Alkaline Phosphatase 72 U/L (38-126); Chol/HDL Ratio 4.5 (1-3.5); Cholesterol 136 mg/dl (140-200); Direct LDL Cholesterol 76.68 mg/dL (100-129); Globulin 3.5 g/dL (1.3-3.2); HDL Cholesterol 30 mg/dl (40-60); Triglycerides 8 mg/dl (30-150); VLDL Cholesterol 2 mg/dL (0-40)
== END 2024-05-15 23:59 | disposition home or self-care (01) ==
LOC: LAB.DROPOF 16:49
PROVIDERS: PCP Internal Medicine; Visit Provider Internal Medicine
DX: D51.8 Other vitamin B12 deficiency anemias (principal); E11.42 Type 2 diabetes mellitus with diabetic polyneuropathy; I10 Essential (primary) hypertension; E78.5 Hyperlipidemia, unspecified
CPT/HCPCS: 80053; 80061; 83036; 85025

== ENCOUNTER 2024-06-03 14:55 | Outpatient (POV) | payer MEDICARE, SELFPAY | END 2024-06-03 23:59 | disposition home or self-care (01) | LOC: SC 14:55 | PROVIDERS: PCP Internal Medicine; Visit Provider Dermatology | DX: Z00.00 Encounter for general adult medical examination without abnormal findings (principal) ==

== ENCOUNTER 2024-06-12 13:00 | Outpatient (RCR) | payer MEDICARE, SELFPAY ==
--- NOTE | 2024-04-16 16:22 | HMH.PTOPEV ---
PT Outpatient Evaluation Rehab PT Outpatient Evaluation Start: 04/16/24 13:01 Freq: Status: Active Protocol: Document 04/16/24 13:01 ELIZALAURA (Rec: 04/16/24 16:22 JOANIE [id number]) E-signed By Lauren Denton, PT Outpatient Therapy Subjective History Subjective History Pt is a 73 y/o male who reports chronic bilateral R>L knee pain. Pt had R knee radiograph on 04/03/24 with impression of Severe tricompartment degenerative changes present, with a moderate size joint effusion and mild lateral subluxation of the proximal tibia. Pt had a L knee radiograph as well with impression of Moderate & severe degenerative change in the left knee with severe narrowing of the medial compartment. Pt reports he was referred to PT for prehab to get in shape for knee replacement surgery in the future. Pt reports he has had multiple injections in his knees without mcc improvement. Pt report he uses a standard walker for all ambulation due to pain. Pt reports he has a rollator walker but it doesn't fit through his doors or hallway at home so he does not use it. Pt reports pain is aggravated by prolonged standing, walking, stair climbing, and getting in/out of his truck. Pt states he has to climb 35 steps at [facility] and 12 steps to his basement at home. Pt reports he requires increased time with stair climbing due to pain and fear of falling. Pt also reports sciatic nerve pain in his L leg with intermittent burning pain down the left posterior hip to his ankle. Pt reports when this is flared up it is more difficult for him to walk. Pt reports he just finished a month of home health physical therapy due to inabiltiy to get out of his home to go to the doctor. Medical History: Hypertension, Type II Diabetes TU with standard walker Girth: tibiofemoral joint line 54 cm B New diagnosis of cancer in past 12 No: skin cancer removed from months? head >1 year ago Chief Complaint Pain,Stiff Symptom Type Ache,Dull Symptoms Relieved By Rest/Positioning Symptoms Aggravated By Standing,Physical Activity, Walking Current Functional Limitations Housework,Standing,Squatting, Recreation Activity,Walking, Stairs,Balance Symptom Description Constant but Variable Level of pain today (0-10) 0 Pain scale - at its best (0-10) 0 Pain scale - at its worst (0-10) 10 Hip/Knee Eval Gait Observation General Gait Pattern Observation Antalgic Gait,Wide Based Gait, Shuffling Step,Decrease Weight Bear (R),Decrease Stride Lngth (R),Decrease Stride Lngth (L) Assistive Device Assistive Devices Standard Walker Palpation Tenderness bilateral Knee Palpation Overall Comment medial joint line R>L MMT left Hip Flexion Strength Grade 5 Normal Hip Abduction Strength Grade 4- Good- Hip Adduction Strength Grade 4- Good- Hip Extension Strength Grade 4- Good- Knee Extension Strength Grade 4 Good Knee Flexion Strength Grade 4 Good right Hip Flexion Strength Grade 4 Good Hip Abduction Strength Grade 4- Good- Hip Adduction Strength Grade 4- Good- Hip Extension Strength Grade 4- Good- Knee Extension Strength Grade 4 Good Knee Flexion Strength Grade 4 Good ROM left Knee Extension Active Range of Motion ( 0 degrees) Knee Flexion Active Range of Motion ( 102 degrees) right Knee Extension Active Range of Motion ( 9 degrees) Knee Flexion Active Range of Motion ( 100 degrees) Lower Extremity Functional Index Activities Today, do you or would you have any difficulty at all with: a.Any of your usual work, housework or Moderate difficulty school activities b. Your usual hobbies, recreational or Moderate difficulty sporting activities c. Getting into or out of the bath A little bit of difficulty d. Walking between rooms A little bit of difficulty e. Putting on your shoes or socks Quite a bit of difficulty f. Squatting Extreme difficulty or unable to perform activity g. Lifting an object, like a bag of Moderate difficulty groceries from the floor h. Performing light activities around Quite a bit of difficulty your home i. Performing heavy activities around Extreme difficulty or unable your home to perform activity j. Getting into or out of a car Moderate difficulty k. Walking 2 blocks Extreme difficulty or unable to perform activity l. Walking a mile Extreme difficulty or unable to perform activity m. Going up or down 10 stairs (about 1 Extreme difficulty or unable flight of stairs) to perform activity n. Standing for 1 hour Extreme difficulty or unable to perform activity o. Sitting for 1 hour Extreme difficulty or unable to perform activity p. Running on even ground Extreme difficulty or unable to perform activity q. Running on uneven ground Quite a bit of difficulty r. Making sharp turns while running fast Extreme difficulty or unable to perform activity s. Hopping Extreme difficulty or unable to perform activity t. Rolling over in bed Moderate difficulty LEFI Score Lower Extremity Functional Index Score 19 Outpatient Therapy Assessment Impairments Problems/Impairmments Palpation Tenderness,Impaired Range of Motion,Impaired Strength,Impaired Gait Pattern ,Impaired Walking,Impaired Standing,Impaired Sitting, Impaired Household Care, Impaired Stair Climbing, Impaired Balance,Increased Edema,Subjective C/O Pain, Impaired Self Care/Self Management Prognosis Rehab Potential Fair Comment Prehab for total knee replacement. Barriers to progress include chronic B knee pain complicated by L sciatica and increased BMI Clinical Impression Consistent with Diagnosis Yes Short Term Goals Number of Weeks 3 Decrease TUG Time Yes: Improve time to 70 or less with walker to decrease fall risk Improve Self Care/Self Management Yes Patient to be Ind w/ HEP Yes Snf Goals Number of Weeks 6 Increase Range of Motion Yes: Improve B knee AROM to 0- 110 Increase Strength Yes: Improve BLE MMT to 4+/5 grossly to assist with function Improve Gait Pattern with Assistive Yes Device Improve Ability to Climb Stairs Yes: 1 flight w HR w p! 6-8/10 or less to assist with homr/ [facility] navigation Improve LEFI Score Yes: Improve score to 25-30/80 to improve overall QOL Decrease TUG Time Yes: 60 or less with walker to decrease fall risk Decrease Subjective C/O Pain Yes: Improve pain at worst to 6-8/10 to improve overall QOL Outpatient Therapy Plan of Care Treatment Plan May Include Therapeutic Exercise Including Home Yes Exercise Program Manual Therapy Techniques Yes Neuromuscular Re-education Yes Therapeutic Activities to Return to Yes Previous Functional/Work Level Gait Training Yes ADL/Self Care Education Yes Dry Needling Yes Thermal Modalities Yes Electrical Stimulation Yes Ultrasound/Phonophoresis Yes Iontophoresis Yes Orthotics/Bracing/Splinting Yes Vasopneumatic Compression Pump Yes Massage Yes Manual Lymphatic Drainage Yes Group Therapy for Medicare Yes Eval/Re-Eval Yes Aquatic Therapy Yes Frequency Times per week 2 Duration Number of Weeks 4-6 Addendums This patient is a candidate for social No or vocational rehab? Patient/Guardian verbally acknowledges Yes understanding of treatment program and consents to further treatment? Patient/Guardian verbally acknowledges Yes understanding of diagnosis, prognosis and goals for treatment? Eval Complexity PT Charges 78722 - Low Complexity Shoulder/Elbow Eval Shoulder Objective Measurements Elbow Objective Measurements PHYSICIAN CERTIFICATION: I certify the specified therapy services for Preet Paiz [place] are required, authorized, and reviewed every 30 days.
--- NOTE | 2024-05-15 16:36 | HMH.RHREAS ---
Rehab Reassessment Rehab OP Re-assessment Start: 04/16/24 13:01 Freq: Status: Active Protocol: Document 05/15/24 13:10 JOANIE (Rec: 05/15/24 13:56 JOANIE [id number]) E-signed By Lauren Denton PT Lower Extremity Functional Index Activities Today, do you or would you have any difficulty at all with: a.Any of your usual work, housework or Quite a bit of difficulty school activities b. Your usual hobbies, recreational or Extreme difficulty or unable sporting activities to perform activity c. Getting into or out of the bath A little bit of difficulty d. Walking between rooms Moderate difficulty e. Putting on your shoes or socks Quite a bit of difficulty f. Squatting Extreme difficulty or unable to perform activity g. Lifting an object, like a bag of Extreme difficulty or unable groceries from the floor to perform activity h. Performing light activities around Quite a bit of difficulty your home i. Performing heavy activities around Extreme difficulty or unable your home to perform activity j. Getting into or out of a car Quite a bit of difficulty k. Walking 2 blocks Extreme difficulty or unable to perform activity l. Walking a mile Extreme difficulty or unable to perform activity m. Going up or down 10 stairs (about 1 Quite a bit of difficulty flight of stairs) n. Standing for 1 hour Extreme difficulty or unable to perform activity o. Sitting for 1 hour No difficulty p. Running on even ground Extreme difficulty or unable to perform activity q. Running on uneven ground Extreme difficulty or unable to perform activity r. Making sharp turns while running fast Extreme difficulty or unable to perform activity s. Hopping Extreme difficulty or unable to perform activity t. Rolling over in bed Moderate difficulty LEFI Score Lower Extremity Functional Index Score 16 Rehab Re-assessment Subjective Subjective Pt reports he feels 20% improved since starting PT. Pt reports his legs feel stronger overall especially his L leg. Pt states he no longer experiences B knee pain at rest. Pt reports continued B knee pain with weightbearing activities rated 5-6/10 at worst on VAS. Pt reports he continues to require a standard walker for all gait due to pain. Pt reports he is now able to get up stairs in his home but is slow and careful. Pt reports his often has to help him transfer to standing and in/ out of the car. Pt reports he has offloading knee braces but does not use them, states they do not help with pain. Pt reports he has been compliant with his HEP and also doing 25 minutes on the NuStep before or after PT sessions for exercise. Pt reports he saw a PA in Dr. Zheng's office where they discussed having surgery but have not set up a date or CT scan yet. Objective Objective Notes Gait: short, shuffling steps with standard walker, decreased gait speed RLE MMT: hip flex 4-/5, hip abd 4-/5, hip add 4-/5, knee ext 4/5, knee flex 4-/5, ankle DF 5/5 LLE MMT: hip flex 3+/5, hip abd 4-/5, hip add 4-/5, knee ext 4-/5, knee flex 4-/5, ankle DF 4+/5 R knee AROM: 0-5-102 L knee AROM: 0-100 TU with standard walker, modAx2 to perform sit to stand from standard chair Assessment Progress Assessment Slower Than Expected Assessment Notes Pt has attended 8 PT visits consisting of aerobic exercise , knee mobility, LE stretching /strengthening, and HEP with fair-good tolerance. Pt demonstrated regression in LEFS score and TUG time this date compared to the initial evaluation. Pt reported 7/10 fatigue prior to the reassessment due to having multiple doctor appointments and having blood drawn this date. Pt continues to report moderate bilateral knee pain with all weightbearing activities although does report his knees no longer hurt at rest. Pt continues to demonstrate impaired gait with short, shuffling steps and decreased gait speed. Pt also requires modAx2 to perform sit to stand transfer and requires assistance from his to transfer into his car. Would recommend deferring TKA surgery until functional mobility and ROM improve to optimize outcomes. Overall, the pt would continue to benefit from skilled PT to further improve subjective report of pain, knee ROM, LE strength, transfers and gait to improve overall QOL and decrease burden of care. Patient goals met ST/3 Goals Not Met TUG time, LTG Revised Goals n/a Plan Plan Continue initial POC Frequency of Therapy 2x/week Duration of therapy 4 more weeks Time and Billing Re-Eval Time 22 Re-Eval Billing Units 1 PHYSICIAN CERTIFICATION: I certify the specified therapy services for Preet Chencho [place] are required, authorized, and reviewed every 30 days.
== END 2024-06-12 23:59 | disposition home or self-care (01) ==
LOC: PT 13:00
PROVIDERS: Visit Provider Orthopaedic Surgery
DX: M17.0 Bilateral primary osteoarthritis of knee (principal)
CPT/HCPCS: 97110; 97116; 97163; 97164; 97530

== ENCOUNTER 2024-07-29 14:30 | Outpatient (POV) | payer MEDICARE, SELFPAY | END 2024-07-29 23:59 | disposition home or self-care (01) | LOC: SC 07-30 09:11 | PROVIDERS: Visit Provider Dermatology | DX: Z00.00 Encounter for general adult medical examination without abnormal findings (principal) ==

== ENCOUNTER 2024-08-14 14:14 | Outpatient (CLI) | payer MEDICARE, SELFPAY ==
[2024-08-14 14:43] LABS: Microalbumin/Creatinine Ratio 13.3
[2024-08-14 14:45] LABS: Creatinine,Urine Random 57 mg/dL (Not Estab.)
== END 2024-08-14 23:59 | disposition home or self-care (01) ==
LOC: LAB.DROPOF 14:14
PROVIDERS: PCP Internal Medicine; Visit Provider Internal Medicine
DX: E11.42 Type 2 diabetes mellitus with diabetic polyneuropathy (principal)
CPT/HCPCS: 82043; 82570

== ENCOUNTER 2024-11-27 15:11 | Outpatient (CLI) | payer MEDICARE, SELFPAY ==
[2024-11-27 17:22] LABS: Basophils # 0.1 K/mm3 (0-0.2); Basophils % 0.7 % (0.1-2.0); Eosinophils # 0.5 K/mm3 (0.0-0.4); Eosinophils % 5.6 % (0.1-12.0); Hematocrit 36.8 % (42.0-52.0); Hemoglobin 11.7 g/dL (14.1-18.0); Lymphocytes # 1.6 K/mm3 (0.7-4.5); Lymphocytes % 18.9 % (10-50); Mean Corpuscular HGB Conc 31.8 g/dL (31.8-35.4); Mean Corpuscular Hemoglobin 29.5 pg (27.0-31.2); Mean Corpuscular Volume 92.9 fl (80-94); Mean Platelet Volume 9.1 fl (7.4-10.4); Monocytes # 0.9 K/mm3 (0.1-1.0); Monocytes % 11.4 % (1.7-9.3); Neutrophils # 5.2 K/mm3 (1.8-7.8); Neutrophils % 63.2 % (37.0-80.0); Platelet Count 297 K/mm3 (142-424); Red Blood Count 3.96 M/mm3 (4.60-6.20); Red Cell Distribution Width 13.3 % (11.5-17.5); White Blood Count 8.2 K/mm3 (4.8-10.8)
[2024-11-27 17:47] LABS: Albumin Level 4.4 g/dl (3.5-5.0); Chloride 105 mmol/L (98-107)
[2024-11-27 17:48] LABS: Sodium 141 mmol/L (136-145)
[2024-11-27 17:50] LABS: Alanine Aminotransferase 16 U/L (12-78); Aspartate Amino Transferase 18 U/L (17-59); Blood Urea Nitrogen 40 mg/dl (9-20); Carbon Dioxide 26 mmol/L (22.0-30.0); Estimated Glomerular Filt Rate 35 ml/min (>60); GFR (African American) 42 ML/MIN (>60)
[2024-11-27 17:51] LABS: Albumin/Globulin Ratio 1.6 (1.1-1.8); Alkaline Phosphatase 92 U/L (38-126); Bilirubin,Total 0.3 mg/dl (0.2-1.3); Calcium 9.3 mg/dl (8.4-10.2); Cholesterol 123 mg/dl (140-200); Globulin 2.7 g/dL (1.3-3.2); Glucose 128 mg/dl (74-100); HDL Cholesterol 31 mg/dl (40-60); Total Protein,Serum 7.1 g/dl (6.3-8.2); Triglycerides 106 mg/dl (30-150); VLDL Cholesterol 21 mg/dL (0-40)
[2024-11-27 18:02] LABS: Direct LDL Cholesterol 71.25 mg/dL (100-129)
[2024-11-27 18:06] LABS: Creatinine,Urine Random 48 mg/dL (Not Estab.); Hemoglobin A1C 6.3 % (4.0-6.0); Microalbumin < 6.000 mg/L (0-16.7)
[2024-11-27 19:07] LABS: Vitamin B12 < 159 pg/mL (239-931)
== END 2024-11-27 23:59 | disposition home or self-care (01) ==
LOC: LAB.DROPOF 12-01 15:12
PROVIDERS: PCP Internal Medicine; Visit Provider Internal Medicine
DX: D50.9 Iron deficiency anemia, unspecified (principal); D51.8 Other vitamin B12 deficiency anemias; E11.42 Type 2 diabetes mellitus with diabetic polyneuropathy; I10 Essential (primary) hypertension; M17.12 Unilateral primary osteoarthritis, left knee; M17.11 Unilateral primary osteoarthritis, right knee; E78.5 Hyperlipidemia, unspecified
CPT/HCPCS: 80053; 80061; 82043; 82570; 82607; 83036; 85025

== ENCOUNTER 2024-12-18 15:10 | Outpatient (CLI) | payer MEDICARE, SELFPAY ==
[2024-12-18 23:09] LABS: Chloride 101 mmol/L (98-107); Potassium 4.2 mmoL/L (3.5-5.1); Sodium 138 mmol/L (136-145)
[2024-12-18 23:12] LABS: Blood Urea Nitrogen 39 mg/dl (9-20); Estimated Glomerular Filt Rate 33 ml/min (>60); GFR (African American) 40 ML/MIN (>60)
[2024-12-18 23:13] LABS: Anion Gap 19.2 mEq/L (5-15); Calcium 9.7 mg/dl (8.4-10.2); Carbon Dioxide 22 mmol/L (22.0-30.0); Glucose 113 mg/dl (74-100)
== END 2024-12-18 23:59 | disposition home or self-care (01) ==
LOC: LAB.DROPOF 15:10
PROVIDERS: PCP Internal Medicine; Visit Provider Internal Medicine
DX: R79.89 Other specified abnormal findings of blood chemistry (principal)
CPT/HCPCS: 80048

== ENCOUNTER 2025-01-23 11:26 | Outpatient (CLI) | payer MEDICARE, SELFPAY ==
[2025-01-23 11:57] LABS: Hematocrit 35.7 % (42.0-52.0); Hemoglobin 11.7 g/dL (14.1-18.0); Mean Corpuscular HGB Conc 32.8 g/dL (31.8-35.4); Mean Corpuscular Volume 88.4 fl (80-94); Nucleated Red Blood Cells # 0 10^3/uL; Nucleated Red Blood Cells % 0 %; Platelet Count 343 K/mm3 (142-424); Red Blood Count 4.04 M/mm3 (4.60-6.20); Red Cell Distribution Width 12.5 % (11.5-17.5); Red Cell Distribution Width-SD 40.7 fL; White Blood Count 7.6 K/mm3 (4.8-10.8)
[2025-01-23 12:40] LABS: Albumin Level 4.2 g/dl (3.5-5.0); Anion Gap 13.1 mEq/L (5-15); Blood Urea Nitrogen 34 mg/dl (9-20); Calcium 9.9 mg/dl (8.4-10.2); Carbon Dioxide 23 mmol/L (22.0-30.0); Chloride 104 mmol/L (98-107); Estimated Glomerular Filt Rate 46 ml/min (>60); GFR (African American) 55 ML/MIN (>60); Glucose 118 mg/dl (74-100); Potassium 4.1 mmoL/L (3.5-5.1); Sodium 136 mmol/L (136-145)
== END 2025-01-23 23:59 | disposition home or self-care (01) ==
LOC: LAB 11:27
PROVIDERS: Orthopaedic Surgery Adult Reconstructive Orthopaedic Surgery; PCP Internal Medicine; Visit Provider Internal Medicine
DX: Z01.818 Encounter for other preprocedural examination (principal)
CPT/HCPCS: 36415; 80048; 82040; 85027

== ENCOUNTER 2025-03-18 15:31 | Inpatient (IN) | payer MEDICARE, SELFPAY ==
--- OUTSIDE RECORDS SUMMARY | 2025-01-28 07:52 | XMS_ITS | Encounter Summary ---
Author Organization [facility] Address [address] [place] [address] Care Team Providers Care Speech Correction Assistant Name Role Phone Nader Fields MD Primary Care Provider [phone] Reason for Referral * Consultation (Routine) - Authorized Specialty Diagnoses / Procedures Referred By Jean post Referred To Contact Physical Therapy Diagnoses Arthritis of right knee Miranda Salamanca APRN [address] [place] [phone] Phone: tel: fax: Referral ID Status Reason Start Date Expiration Date Visits Requested Visits Authorized [id number] Authorized Consult and Treat 01/29/2025 07/31/2026 1 1 * Home Health (Routine) - Authorized Specialty Diagnoses / Procedures Referred By Jean post Referred To Contact Home Health Services Diagnoses Arthritis of right knee Leon Anne MD [address] [place] [address] Phone: tel: fax: Referral ID Status Reason Start Date Expiration Date Visits Requested Visits Authorized [id number] Authorized Specialty Services Required 01/29/2025 07/31/2026 999 999 Reason for Visit * Auth/Cert (Routine) Specialty Diagnoses / Procedures Referred By Jean post Referred To Contact Diagnoses Unilateral primary osteoarthritis, right knee Unilateral primary osteoarthritis, right knee [M17.11] Procedures AR TOTAL KNEE ARTHROPLASTY AR CPTR-ASST SURGICAL NAVIGATION IMAGE-LESS ARTHROPLASTY, KNEE, TOTAL, USING COMPUTER-ASSISTED NAVIGATION Leon Anne MD [address] [place] [phone] Phone: tel: fax: [facility] Operating Room [address] [place] [address] Phone: tel: Referral ID Status Reason Start Date Expiration Date Visits Re quested Visits Authorized [id number] 1 1 Encounter Details Date Type Department Care Team (Latest Contact Info) Description 01/28/2025 7:52 AM EDT - 01/29/2025 3:31 PM EDT Hospital Encounter [facility] Inpatient [address] [place] [address] Leon Anne MD [address] [place] [phone] Arthritis of right knee (Primary Dx) Discharge Disposition: Home or Self Care Social History Tobacco Use Types Packs/Day Years Used Date Smoking Tobacco: Never Smokeless Tobacco: Never Alcohol Use Standard Drinks/Week Comments Never 0 (1 standard drink = 0.6 oz pur e alcohol) Humiliation, Afraid, Rape, and Kick questionnair e Answer Date Recorded Within the last year, have y ou been afraid of your partner or ex-partner? No 02/03/2025 Within the last year, have y ou been humiliated or emotionally abused in other ways by your partner or ex-partner? No Within the last year, have y ou been kicked, hit, slapped, or otherwise physically hurt by your partner or ex-partner? No 02/03/2025 Within the last year, have y ou been raped or forced to have any kind of sexual activity by your partner or ex-partner? No 02/03/2025 PHQ-2 Answer Date Recorded Patient Health Questionnaire-2 Score 0 12/12/2024 Hunger Vital Sign Answer Date Recorded Within the past 12 months, y ou worried that your food would run out before you got the money to buy more. Never true 02/04/20 25 Within the past 12 months, t he food you bought just didn't last and you didn't have money to get more. Never true 02/03/2025 PRAPARE - Transportation Answer Date Re corded In the past 12 months, has l ack of transportation kept you from medical appointments or from getting medications? No 01/22 In the past 12 months, has l ack of transportation kept you from meetings, work, or from getting things needed for daily living? No 02/03/2025 PHQ-9 Answer Date Recorded Patient Health Questionnaire-9 Score 0 10/02/2024 Housing Stability Vital Sign Answer Gaetano e Recorded In the last 12 months, was t here a time when you were not able to pay the mortgage or rent on time? No 02/03/2025 Number of Times Moved in the Last Year Not on fi le 02/03/2025 At any time in the past 12 m [facility] were you homeless or living in a care home (including now)? No 02/03/2025 Utilities Answer Date Recorded In the past 12 months has th e electric, gas, oil, or water company threatened to shut off services in your home? No 02/03/2025 Sex and Gender Information Value Date Recorded Sex Assigned at Not on file Legal Sex Male 10:03 AM EDT Gender Identity Not on file Sexual Orientation Not on file documented as of this encounter Last Filed Vital Signs Vital Sign Reading Time Taken Comments Blood Pressure 139/75 01/29/2025 11:37 AM EDT Pulse 75 01/29/2025 11:37 AM EDT Temperature 36.3 C (97.3 F) 01/29/2025 11:37 AM EDT Respiratory Rate 18 01/29/2025 11:37 AM EDT Oxygen Saturation 95% 01/29/2025 11:37 AM EDT Inhaled Oxygen Concentration - - Weight 143 kg (315 lb) 01/29/2025 9:00 AM EDT Height 180.3 cm (5' 11 ) 01/28/2025 8:35 AM EDT Body Mass Index 43.93 01/28/2025 8:35 AM EDT documented in this encounter Functional Status * Over the past 2 weeks, how often have you been bothered by any of the following problems? Question Answer Date of Assessment Author Little interest or pleasure in doing things Not at all 12/12/2024 12:15 PM EDT Karla Feldman Feeling down, depressed, or hopeless Not at all 11/23 12:15 PM EDT Karla Feldman Patient Health Questionnaire-2 Score 0 11/23 12:15 PM EDT Karla Feldman * Question Answer Date of Assessment Author Trouble falling or staying a sleep, or sleeping too much Not at all 10/02/2024 1:29 PM Tracy Isaac Feeling tired or having wayne le energy Not at all 10/02/2024 1:29 PM Tracy sIaac Poor appetite or overeating Not at all 10/02/2024 1: 29 PM Tracy Isaac Feeling bad about yourself - or that you are a failure or have let yourself or your family down Not at all 10/02/2024 1:29 PM Terrance Isaac Trouble concentrating on thi ngs, such as reading the newspaper or watching television Not at all 10/02/2024 1:29 PM Tracy Isaac Moving or speaking so slowly that other people could have noticed? Or the opposite - being so fidgety or restless that you have been moving around a lot more than usual. Not at all 10/02/2024 1:29 PM Tova Isaac Thoughts that you would be b ilia off or hurting yourself in some way Not at all 10/02/2024 1:29 PM Tracy Isaac Patient Health Questionnaire -9 Score 0 10/02/2024 1:29 PM Tracy Isaac * Calculated C-SSRS Risk Score (Lifetime/Recent) Answer Date of Assessment Author No Risk Indicated 02/07/2025 8:00 AM EDT Munira Samuel, FELISA * If you checked off any problems on this questionnaire so far, Question Answer Date of Assessment Author How difficult have these problems made it for you to do your work, take care of things at home, or get along with other people? Not difficult at all 12/12/2024 12:15 PM EDT Karla Feldman * Question Answer Date of Assessment Author 1. Wish to be (Past 1 Month) No 025 8:00 AM EDT Munira Samuel, FELISA 2. Non-Specific Active Suici fatuma Thoughts (Past 1 Month) No 02/07/2025 8:00 AM EDT Mandy Samuel RN 6. Suicidal Behavior (Lifetime) No 8:00 AM EDT Munira Samuel RN documented as of this encounter Discharge Instructions * Discharge Instructions* Miranda Salamanca APRN - 01/29/2025 1:41 PM EDT 1. You will be on Aspirin 81mg twice daily for 4 weeks for deep vein thrombosis prevention. It is important that you take each pill on time every day and to take it for the full 4 weeks. 2. Please see your discharge medication list for the post-operative medications you have been given. Call the clinic with any questions or concerns. 3. You have been given Docusate Sodium to take daily to prevent constipation while taking narcotic pain medications. Take this as long as you are taking narcotics. You can also begin Miralax daily and continue until you have weaned off your narcotic pain medications. If you have had no bowel movement on post-op day #3 you need to take Milk of Magnesia as directed over the counter. Then if no bowel movement by post-op day #5 you need to use a Dulcolax Suppository over the counter as directed. Ifstill no bowel movement at that time your need to call the clinic. documented in this encounter Medications at Time of Discharge cyanocobalamin 1000 MCG tablet Take 1 tablet by mouth daily. famotidine (Pepcid) 20 MG tablet Take 1 tablet by mouth daily. gabapentin (Neurontin) 100 MG capsule Take 1 capsule by mouth 3 times a day. If this medication makes you drowsy you may take it only at bedtime 30 capsule 01/29/2025 metFORMIN (Glucophage) 1000 MG tablet Take 1 tablet by mouth 2 times a day with meals. 04/21/2024 naloxone (Narcan) 4 mg/0.1 mL nasal spray 1. Give 1 spray in nostril for no/slow breathing or cannot wake after opioid use 2. Call 911 3. Repeat in other nostril if symptoms continue 1 each 01/29/2025 nystatin (Mycostatin) [id number] UNIT/GM powder Apply to skin folds twice daily 60 g 01/29/2025 pioglitazone (Actos) 15 MG tablet Take 1 tablet by mouth daily. 06/09/2024 pravastatin (Pravachol) 20 MG tablet Take 1 tablet by mouth daily. 04/21/2024 docusate sodium (Colace) 250 MG capsule Take 1 capsule by mouth 2 times a day. 60 capsule 01/29/2025 5 acetaminophen (Tylenol Extra Strength) 500 MG tablet Take 2 tablets by mouth every 8 hours. 100 tablet 01/29/2025 5 amLODIPine (Norvasc) 5 MG tablet Take 1 tablet by mouth 2 times a day. 04/18/2024 5 aspirin 81 MG EC tablet Take 1 tablet by mouth 2 times a day for 28 days. For 4 weeks post-op for blood clot prevention 56 tablet 01/29/2025 5 cefadroxil (Duricef) 500 MG capsuleIndicatio ns:Arthritis of right knee Take 1 capsule by mouth 2 times a day for 7 days. To prevent post-op infection 14 capsule 01/29/2025 5 fluconazole (Diflucan) 100 MG tabletIndication s:Arthritis of right knee Take 1 tablet by mouth every other day for 2 doses. 2 tablet 01/31/2025 5 furosemide (Lasix) 40 MG tablet Take 1 tablet by mouth daily. 07/09/2024 5 lisinopril-hydro CHLOROthiazide 20-25 MG tablet Take 1 tablet by mouth daily. 07/25/2024 5 magnesium 30 MG tablet Take 2 tablets by mouth daily. 5 oxyCODONE (Roxicodone) 5 MG immediate release tablet Take 1 tablet by mouth every 6 hours as needed for severe pain. 50 tablet 01/28/2025 tamsulosin (Flomax) 0.4 MG 24 hr capsule Take 1 capsule by mouth daily for 7 days. Continue for 1 week post-op 7 capsule 01/30/2025 5 traMADol (Ultram) 50 MG tablet Take 1 or 2 tablets every 4-6 hours as needed for moderate pain 56 tablet 01/29/2025 5 tranexamic acid (Lysteda) 650 MG tablet tablet Take 1 tablet by mouth 3 times a day for 8 doses. 8 tablet 01/29/2025 triamcinolone (Kenalog) 0.1 % cream Apply 1 Application topically in the morning and 1 Application before bedtime. 07/29/2024 documented as of this encounter Miscellaneous Notes * Discharge Summary - Cheikh Miranda MccraryCAROL - 01/29/2025 1:53 PM EDT Hospitalization Admit Date/Time: 01/28/2025 7:52 AM Admitting Attending: Leon Anne Discharge Date: 01/29/2025 Discharge Attending Physician: Leon Anne MD PCP name and Address: Nader Fields MD [address] [place] [address] [address] [place] [address] Referring provider name and address: No referring provider defined for this encounter. Chief Concern, Brief History of Present Illness, and Hospital Course Patient arrived to [facility] on 01/28/25 for their scheduled surgery. Patient toleratedthe procedure without complication, was extubated in the operating room, and transferred to the PACU for recovery from anesthesia. Shortly thereafter, patient was transferred to the acute care floor for recovery. Patient's hospital course was without complications. Patient was given prophylactic antibiotics, pain was controlled on oral pain medications, and patient tolerated a regular diet. The patient was kept on DVT prophylaxis with SCD's and aspirin. The patient was cleared to be discharged by PT/OT prior to discharge. The patient was discharged home with home health therapy set up with [facility] agency . Surgeries and Procedures ARTHROPLASTY, KNEE, TOTAL, USING COMPUTER-ASSISTED NAVIGATION (Right) Medication List .. acetaminophen 500 MG tablet Commonly known as: Tylenol Extra Strength Take 2 tablets by mouth every 8 hours. amLODIPine 5 MG tablet Commonly known as: Norvasc Take 1 tablet by mouth 2 times a day. aspirin 81 MG EC tablet Take 1 tablet by mouth 2 times a day for 28 days. For 4 weeks post-op for blood clot prevention cefadroxil 500 MG capsule Commonly known as: Duricef Take 1 capsule by mouth 2 times a day for 7 days. To prevent post-op infection cyanocobalamin 1000 MCG tablet Commonly known as: Vitamin B-12 Take 1 tablet by mouth daily. docusate sodium 250 MG capsule Commonly known as: Colace Take 1 capsule by mouth 2 times a day. famotidine 20 MG tablet Commonly known as: Pepcid Take 1 tablet by mouth daily. fluconazole 100 MG tablet Commonly known as: Diflucan Take 1 tablet by mouth every other day for 2 doses. Start taking on: January 31, 2025 furosemide 40 MG tablet Commonly known as: Lasix Take 1 tablet by mouth daily. gabapentin 100 MG capsule Commonly known as: Neurontin Take 1 capsule by mouth 3 times a day. If this medication makes you drowsy you may take it only at bedtime lisinopril-hydroCHLOROthiazide 20-25 MG tablet Take 1 tablet by mouth daily. magnesium 30 MG tablet Take 2 tablets by mouth daily. metFORMIN 1000 MG tablet Commonly known as: Glucophage Take 1 tablet by mouth 2 times a day with meals. naloxone 4 mg/0.1 mL nasal spray Commonly known as: Narcan 1. Give 1 spray in nostril for no/slow breathing or cannot wake after opioid use 2. Call 911 3. Repeat in other nostril if symptoms continue nystatin [id number] UNIT/GM powder Commonly known as: Mycostatin Apply to skin folds twice daily oxyCODONE 5 MG immediate release tablet Commonly known as: Roxicodone Take 1 tablet by mouth every 6 hours as needed for severe pain. pioglitazone 15 MG tablet Commonly known as: Actos Take 1 tablet by mouth daily. pravastatin 20 MG tablet Commonly known as: Pravachol Take 1 tablet by mouth daily. tamsulosin 0.4 MG 24 hr capsule Commonly known as: Flomax Take 1 capsule by mouth daily for 7 days. Continue for 1 week post-op Start taking on: January 30, 2025 traMADol 50 MG tablet Commonly known as: Ultram Take 1 or 2 tablets every 4-6 hours as needed for moderate pain tranexamic acid 650 MG tablet tablet Commonly known as: Lysteda Take 1 tablet by mouth 3 times a day for 8 doses. triamcinolone 0.1 % cream Commonly known as: Kenalog Apply 1 Application topically in the morning and 1 Application before bedtime. Where to Get Your Medications These medications were sent to [facility] [place] [id number] [address] [place] [id number] acetaminophen 500 MG tablet aspirin 81 MG EC tablet cefadroxil 500 MG capsule docusate sodium 250 MG capsule fluconazole 100 MG tablet gabapentin 100 MG capsule naloxone 4 mg/0.1 mL nasal spray nystatin [id number] UNIT/GM powder oxyCODONE 5 MG immediate release tablet tamsulosin 0.4 MG 24 hr capsule traMADol 50 MG tablet tranexamic acid 650 MG tablet tablet Discharge Diagnosis Medical Problems Active and Resolved Hospital Problems Hospital * (Principal) Unilateral primary osteoarthritis, right knee Post Discharge Instructions See post-op instruction sheet Outpatient Follow-Up Future Appointments Date Time Provider Department Center 02/12/2025 10:20 AM Liya Soto PA [facility] 03/17/2025 11:30 AM Leon Anne MD [facility] 07/10/2025 11:00 AM Saroj Anderson MD [facility] [place] Test Results Pending At Discharge Pertinent Physical Exam At Time of Discharge Physical Exam Incision closed with dermabond prineo. Gab wrap in place and clean,dry, intact. Motor/sensation intact. Discharge Disposition/Condition Disposition: Home with home health therapy- A agency Condition: Stable (s/sx potential problems absent or manageable) I spent >30 minutes of patient care and instruction time in preparation for this discharge. Cosigned by Leon Anne MD at 01/29/2025 5:45 PM EDT Associated attestation - Leon Anne MD - 01/29/2025 5:45 PM EDT The patient was seen only by Advanced Practice Provider (DIANN), and care was reviewed with me. * Progress Notes - Mini Goncalves PA - 01/29/2025 11:54 AM EDT Hospital Medicine Progress Note Subjective: Endorses fatigue this am due to interruptions overnight, though is pleased with his progress so far. Notes right hip pain is present but not as severe as his chronic pain. Required I&O cath via [place] and has subsequently voided with reported painful passage of a small, hard, brown debris. Denies history of nephrolithiasis, discussed possibility of small hematoma from trauma associated with catheter insertion. Denies gross hematuria or further dysuria. Review of Systems Constitutional: Positive for fatigue. Negative for chills and fever. Respiratory: Negative for cough and shortness of breath. Cardiovascular: Negative for chest pain and palpitations. Gastrointestinal: Negative for abdominal pain, diarrhea, nausea and vomiting. Genitourinary: Positive for difficulty urinating (improved since I&O cath overnight) and dysuria (improved). Negative for decreased urine volume, flank pain and frequency. Musculoskeletal: Positive for arthralgias and gait problem. Neurological: Positive for weakness. Negative for dizziness and light-headedness. Objective Physical Exam Vitals and nursing note reviewed. Constitutional: General: He is not in acute distress. Appearance: He is obese. HENT: Head: Normocephalic and atraumatic. Mouth/Throat: Mouth: Mucous membranes are moist. Cardiovascular: Rate and Rhythm: Normal rate and regular rhythm. Heart sounds: No murmur heard. Pulmonary: Effort: Pulmonary effort is normal. Breath sounds: Normal breath sounds. Abdominal: General: Bowel sounds are decreased. There is no distension. Palpations: Abdomen is soft. Tenderness: There is no abdominal tenderness. Musculoskeletal: General: Swelling (right knee) present. Right lower leg: Edema present. Left lower leg: Edema present. Comments: Right knee GAB wrap clean and intact Skin: General: Skin is warm and dry. Capillary Refill: Capillary refill takes 2 to 3 seconds. Neurological: General: No focal deficit present. Mental Status: He is alert and oriented to person, place, and time. Psychiatric: Mood and Affect: Mood normal. Behavior: Behavior normal. Temp: [36.3 ??C (97.3 ??F)-37.3 ??C (99.1 ??F)] 36.3 ??C (97.3 ??F) Heart Rate: [71-94] 75 Resp: [13-22] 17 BP: (107-165)/(56-80) 139/75 Recent labs: Recent labs and imaging personally reviewed and noted below: CBC: Lab Results Component Value Date WBC 10.61 (H) 01/29/2025 RBC 3.41 (L) 01/29/2025 HGB 9.8 (L) 01/29/2025 HCT 30.5 (L) 01/29/2025 PLT 292 01/29/2025 MCV 89 01/29/2025 MCH 28.7 01/29/2025 MCHC 32.1 01/29/2025 RDW 12.9 01/29/2025 NRBC 0.0 01/29/2025 Differential: Lab Results Component Value Date WBC 10.61 (H) 01/29/2025 Coagulation: No results found for: INR , PT , PTT , CLFGN Renal: Lab Results Component Value Date NA 139 01/29/2025 K 4.0 01/29/2025 CL 102 01/29/2025 CO2 23 01/29/2025 BUN 31 (H) 01/29/2025 CREATININE 1.62 (H) 01/29/2025 GLUCOSE 174 (H) 01/29/2025 CALCIUM 8.5 (L) 01/29/2025 Liver: No results found for: AST , ALT , ALPHO , BILITOT , BILIDIR Glucose: Lab Results Component Value Date PGLU 170 (H) 01/29/2025 PGLU 147 (H) 01/29/2025 PGLU 187 (H) 01/28/2025 PGLU 162 (H) 01/28/2025 PGLU 179 (H) 01/28/2025 Lab Results Component Value Date HGBA1C 6.2 (H) 12/17/2024 Medications: Scheduled: acetaminophen, 1,000 mg, Oral, q8h SERGEY aspirin, 81 mg, Oral, BID calcium-vitamin D, 1 tablet, Oral, BID with meals ceFAZolin, 3 g, Intravenous, q8h fluconazole, 100 mg, Oral, q48h gabapentin, 100 mg, Oral, q8h insulin lispro, 0-5 Units, Subcutaneous, TID with meals insulin lispro, 0-3 Units, Subcutaneous, Twice at night nystatin, 1 Application, Topical, BID pantoprazole, 40 mg, Oral, Daily before breakfast polyethylene glycol, 17 g, Oral, Daily with breakfast pravastatin, 20 mg, Oral, Daily senna-docusate, 2 tablet, Oral, Nightly tamsulosin, 0.4 mg, Oral, Daily traMADol, 100 mg, Oral, q8h SERGEY tranexamic acid, 650 mg, Oral, TID Continuous: As needed: bisacodyl, 10 mg, BID PRN glucose, 15 grams of glucose, q15 min PRN Or dextrose, 12.5 g, q15 min PRN Or glucagon (human recombinant), 1 mg, q15 min PRN diphenhydrAMINE, 12.5 mg, q4h PRN HYDROmorphone, 0.5 mg, q6h PRN magnesium hydroxide, 30 mL, BID PRN ondansetron, 4 mg, q6h PRN oxyCODONE, 5 mg, q4h PRN traMADol, 50 mg, q12h PRN Assessment/Plan Principal Problem: Unilateral primary osteoarthritis, right knee Active Problems: Arthritis of right knee Assessment and Plan: Preet Montoya is a 74 y.o. male with history of HTN, T2DM, BPH, GERD, HLD, morbid obesity, andOA who presents for scheduled right total knee arthroplasty. Medicine is consulted for medical co-management. Essential HTN Chronic lower extremity edema - BP uptrending, resume home amlodipine - Resume home lisinopril-hydrochlorothiazide at discharge - Resume home lasix as needed starting 01/30 depending on LE edema DM type 2, controlled - A1c 6.2% 11/2024, home regimen includes metformin, pioglitazone, and Ozempic which are currently held for surgery - Glucose 150 on arrival, stable < 180 post-op - FSBG AC/HS and lispro SSI ordered while inpatient, resume home regimen at discharge - CC2 diet Right knee osteoarthritis s/p TKA with associated reduced mobility - s/p right TKA 01/28 - PT/OT rec home with assist - DVT ppx: ASA 81mg bid - Analgesia and bowel regimen per primary BPH with LUTS and POUR - Reports baseline nocturia and urinary hesitancy at times requiring double voiding to empty bladder - Prescribed tamsulosin per post-up urinary retention protocol, but patient notes he wasn't aware of prescription - Required I&O cath x 1 overnight, now voiding spontaneously with improving PVR volumes, continue empiric tamsulosin Chronic intertriginous candidiasis - Per patient, onset of inguinal skin irritation ~ 1y ago, no significant improvement with lamisil - Continue DM management as above - Agree with nystatin powder, fluconazole initiated per primary Acute blood loss anemia - Hgb 12.4 12/17, downtrend to 9.8 POD1 - Remains hemodynamically stable Chronic kidney disease - Cr 1.9 12/17, repeat 1.5 01/23 without prior records for comparison, improved to 1.0 POD 1 - Avoid potential nephrotoxins, including NSAIDs Chronic/stable conditions: - HLD: continue pravastatin - GERD: takes famotidine at baseline, PPI ordered post-op per primary for GI ppx - Suspected SUELLEN: previously unable to tolerate home sleep study, reviewed potential CV risks associated with untreated SUELLEN and recommend formal sleep study as outpatient; supplemental O2 prn to maintain SpO2 > 91% - Morbid obesity: BMI 44.1, complicates all aspects of care Thank you for allowing us to participate in this patient's care. Please reach out with questions orconcerns. TERRANCE Reilly-[facility] Secure chat preferred * Progress Notes - Bianca Hassan RN - 01/29/2025 11:45 AM EDT Case Management Adult Progress Note Preet Montoya 74 y.o. male CSN: [id number] Admission: 01/28/2025 7:52 AM Primary Problem: Unilateral primary osteoarthritis, right knee Anticipated Discharge Date: 1d PT/OT: home with assist, HH PT/OT services. Pt has RW at home. CM met with pt and pts to review HH options. Both are agreeable and deny preferences for agency use. Referrals sent. CM will contact pt with results. Will follow all dc plans. - Update: [facility] agency accepted. They will call pt/ today to schedule home visits. Bianca Hassan RN * Progress Notes - Lorelei Cowart - 01/29/2025 10:45 AM EDT Physical Therapy Evaluation/Discharge Patient Name: Preet Montoya Today's Date: 01/29/2025 PT Discharge Recommendations: Home with assistance, Home health PT Equipment Recommended: Patient owns appropriate equipment History Preet Montoya is 74 y.o. male admitted 01/28/2025 for work-up of Unilateral primary osteoarthritis, right knee. Problem List Active Hospital Problems Diagnosis Date Noted Arthritis of right knee 01/28/2025 Unilateral primary osteoarthritis, right knee 10/02/2024 Procedures 01/28/2025 Procedure(s): ARTHROPLASTY, KNEE, TOTAL, USING COMPUTER-ASSISTED NAVIGATION Past Medical History Patient has a past medical history of Diabetes (CMS/HCC), GERD (gastroesophageal reflux disease), HLD (hyperlipidemia), and HTN (hypertension). Past Surgical History Patient has a past surgical history that includes knee arthroscopy (Right). Precautions Right Lower Extremity Weight Bearing Status: Weight Bearing as Tolerated Medical Precautions: Fall precautions Subjective Patient agreeable to participate, he reports his knee feels so much better Participants in Care Family/Caregiver Present: Yes Family/Caregiver: Spouse Jewelry Sales Representative: Not Applicable Presentation Oxygen Therapy: None (Room air) Lines and Tubes: Intravenous access Pre-Session: Head of bed elevated, Supine, Bed alarm, Lines intact Pre-Session Comments: RN consent Post-Session: Sitting in chair, Lines intact, SCDs applied, Call light in reach Post-Session Comments: needs met Home Living/Set-up Lives With: Spouse Home Type: House Home Adaptive Equipment: Rolling walker Home Layout: One level (basement) Prior Level of Function Receives Help From: Spouse Level of Mobility: Ambulatory- household only Mobility [place]: Assistance with gait with device History of Falls: No Patient/Family Goals full recovery Objective Pain 3/10 Delirium Screening Morgan Agitation Sedation Scale (RASS): Alert and calm Confusion Assessment Method-ICU (CAM-ICU/PCAM-ICU) Feature 3: Altered Level of Consciousness: Negative Cognition Overall Cognitive Status: Within Functional Limits Arousal/Alertness: Appropriate responses to stimuli Mood/Behavior: Alert Orientation Level: Oriented X4 Single Step Commands: Consistently Multi-Step Commands: Consistently Method of Communication: Verbal Right Upper Extremity Examination RUE Assessment: Within Functional Limits Manual Muscle Testing - RUE: Within functional limits Left Upper Extremity Examination LUE ROM Assessment LUE Assessment: Within Functional Limits Manual Muscle Testing - LUE Manual Muscle Testing - LUE: Within functional limits Right Lower Extremity Examination RLE ROM Assessment RLE Assessment: Exceptions to WFL (limited by pain) Manual Muscle Testing - RLE Manual Muscle Testing - RLE: Within functional limits except (not tested) Left Lower Extremity Examination LLE Assessment: Within Functional Limits Manual Muscle Testing: Within functional limits Bed Mobility Bed Mobility Exam: Scooting/Bridging Level of [place]: Minimum assist (75% patient's effort) Physical/Nonphysical Assist: Verbal Cues, Supervision Assistive Device: Bed rails Bed Mobility Exam: Supine to Sit Level of [place]: Minimum assist (75% patient's effort) Physical/Nonphysical Assist: Supervision, Verbal Cues Assistive Device: Bed rails Transfers Transfer Exam: Sit to stand Level of [place]: Stand-by assist Physical/Nonphysical Assist: Supervision, Verbal Cues Assistive Device: Walker, rolling Transfer Exam: Stand to Sit Level of [place]: Stand-by assist Physical/Nonphysical Assist: Supervision, Verbal Cues Assistive Device: Walker, rolling Balance Static Sitting Balance Static Sitting-Balance Support: Right upper extremity support, Left upper extremity support, Feet supported Static Sitting-Level of Assistance: Standby assist Dynamic Sitting Balance Dynamic Sitting-Balance Support: Left upper extremity support, Right upper extremity support Dynamic Sitting-Balance: Lateral weight shifts, Anterior/Posterior weight shifts Level of Assistance: Standby assisst Static Standing Balance Static Standing-Balance Support: Right upper extremity support, Left upper extremity support Static Standing-Level of Assistance: Standby assist Dynamic Standing Balance Dynamic Standing-Balance Support: Right upper extremity support, Left upper extremity support Dynamic Standing-Balance: Lateral weight shifts, Anterior/Posterior weight shifts Dynamic Standing Level of Assistance: Contact guard Gait Training (15 minutes) Device: Rolling walker Assistance: Standby assist Distance: 100 ft Gait Analysis: forward flexed posture, decreased R stance time and step length Gait Training Interventions: cues for upright posture and forward gaze and for proper positioning of AD close to body for increased stability Therapeutic Exercise (13 minutes) Patient participated in therapeutic exercise consisting of 10 reps of glute sets, quad sets, ankle pumps, heel slides, calf stretch, hip abduction, SAQ, heel props, SLR. Education provided on importance of performing frequently to prevent DVT, improve muscle function, improve outcomes, and functional relationship to surgical procedure. Written instruction provided. Standardized Assessments Standardized Assessments Standardized Assessments: [facility] 6-Clicks Mobility Assessment [facility] 6-Clicks Mobility Assessment Difficulty patient has turning over in bed (including adjusting bedclothes, sheets, and blankets)?:A little Difficulty patient has sitting down on and standing up from a chair with arms (wheelchair, bedside commode, etc.)?: A little Difficulty patient has moving from lying on back to sitting on the side of the bed?: A little How much help does the patient need moving to and from a bed to a chair (including a wheelchair)?: A little How much help does the patient need to walk in hospital room?: A little How much help does the patient need climbing 3-5 steps with a railing?: A lot [facility] 6-Clicks Mobility Assessment Total : 17 Assessment Patient tolerated session without c/o increased pain or discomfort. He demonstrates adequate functional mobility to d/c home with his 's assistance when medically appropriate. Recommend HHPT at d/c Diagnosis: R TKA Rehab Potential: Good, to achieve stated therapy goals Eval Complexity History Profile: 1 - 2 personal factors and/or comorbidities Clinical Presentation: Stable and/or uncomplicated characteristics Clinical Decision Making: Low complexity PT Recommendations Discharge Destination: Home with assistance, Home health PT Discharge Equipment: Patient owns appropriate equipment Plan Patient no longer demonstrates need for inpatient physical therapy services. Patient to be discharged from physical therapy. Written by Lorelei Cowart on 01/29/25 at 1:10 PM. * Progress Notes - Haris Taveras - 01/29/2025 10:33 AM EDT Occupational Therapy Evaluation/Discharge Patient Name: Preet Montoya Today's Date: 01/29/2025 OT Discharge Recommendations: Home with assistance Equipment Recommended: Patient owns appropriate equipment History Preet Montoya is 74 y.o. male admitted 01/28/2025 for work-up of Unilateral primary osteoarthritis, right knee. Problem List Active Hospital Problems Diagnosis Date Noted Unilateral primary osteoarthritis, right knee 10/02/2024 Procedures 01/28/2025 Procedure(s): ARTHROPLASTY, KNEE, TOTAL, USING COMPUTER-ASSISTED NAVIGATION Past Medical History Patient has a past medical history of Diabetes (CMS/HCC), GERD (gastroesophageal reflux disease), HLD (hyperlipidemia), and HTN (hypertension). Past Surgical History Patient has a past surgical history that includes knee arthroscopy (Right). Precautions Right Lower Extremity Weight Bearing Status: Weight Bearing as Tolerated Medical Precautions: Fall precautions Subjective Pt agreeable to OT eval. Participants in Care Family/Caregiver Present: Yes Family/Caregiver: Spouse Jewelry Sales Representative: Not Applicable Presentation Oxygen Therapy: None (Room air) Lines and Tubes: Intravenous access Pre-Session: Head of bed elevated, Supine, Bed alarm, Lines intact Pre-Session Comments: RN gave consent to treat Post-Session: Sitting in chair, Lines intact, SCDs applied, Call light in reach Post-Session Comments: All needs met Home Living/Set-up Lives With: Spouse Home Type: House Home Adaptive Equipment: Rolling walker Home Layout: One level (basement) Prior Level of Function Receives Help From: Spouse Level of Mobility: Ambulatory- household only Mobility [place]: Assistance with gait with device History of Falls: No Patient/Family Goals Statement Return home with assist Objective Pain No complaints of pain Delirium Screening [place] Agitation Sedation Scale (RASS): Alert and calm Confusion Assessment Method-ICU (CAM-ICU/PCAM-ICU) Feature 3: Altered Level of Consciousness: Negative Cognition Overall Cognitive Status: Within Functional Limits Arousal/Alertness: Appropriate responses to stimuli Mood/Behavior: Alert Orientation Level: Oriented X4 Single Step Commands: Consistently Multi-Step Commands: Consistently Method of Communication: Verbal Right Upper Extremity Examination RUE ROM Assessment RUE Assessment: Within Functional Limits Manual Muscle Testing - RUE: Within functional limits Left Upper Extremity Examination LUE ROM Assessment LUE Assessment: Within Functional Limits Manual Muscle Testing - LUE: Within functional limits Right Lower Extremity Examination RLE ROM Assessment RLE Assessment: Exceptions to WFL (limited by pain) Manual Muscle Testing - RLE: Within functional limits except (not tested) Left Lower Extremity Examination LLE ROM Assessment LLE Assessment: Within Functional Limits Manual Muscle Testing: Within functional limits Bed Mobility Bed Mobility Exam: Scooting/Bridging Level of [place]: Minimum assist (75% patient's effort) Physical/Nonphysical Assist: Verbal Cues, Supervision Assistive Device: Bed rails Bed Mobility Exam: Supine to Sit Level of [place]: Minimum assist (75% patient's effort) Physical/Nonphysical Assist: Supervision, Verbal Cues Assistive Device: Bed rails Transfers Transfer Exam: Sit to stand Level of [place]: Contact guard Physical/Nonphysical Assist: Supervision, Verbal Cues Assistive Device: Walker, rolling Transfer Exam: Stand to Sit Level of [place]: Contact guard Physical/Nonphysical Assist: Supervision, Verbal Cues Assistive Device: Walker, rolling Transfer Exam: Bed to Chair/Chair to Bed Level of [place]: Contact guard Physical/Nonphysical Assist: Supervision, Verbal Cues Type of Transfer: (Pt ambulated prior to sitting in bedside chair) Assistive Device: Walker, rolling Self-Care Interventions Self Care/Home Management (ADLs) Time Entry: 16 Grooming Grooming Level of Assistance: Independent, SBA Grooming Interventions: To wash face and hands UE Dressing UE Dressing Level of Assistance: SBA, Setup UE Dressing Where Assessed: Edge of bed Lower Extremity Dressing Pants Level of Assistance: Maximum assistance LE Dressing Interventions: Pt required max assist to don his underwear and pants but spouse reported that he requires that much assist at baseline. Pt demonstrated decreased flexibility and ROM in right knee requiring cues for techique and rest breaks. Standardized Assessments Jen Index Feeding: Independent Bathing: Independent (or in Shower) Grooming: Independent face/hair/teeth/shaving (implements provided) Dressing: Independent (including buttons, zips, laces etc.) Bowels: Continent Bladder: Continent Toilet Use: Independent (on and off, dressing, wiping) Transfers (Bed to Chair and Back): Minor help (verbal or physical) Mobility (on Level Surfaces): Walks with help or one person (verbal or physical) > 50 yards Stairs: Needs help (verbal, physical, carrying aid) Total Score: 85 Assessment Pt required max assist for LB dressing which family reported is baseline. OT educated pt and on importance of pt attempting to don his LB in order to increase his AROM in his right knee. Pt was IND for UB dressing, grooming and eating. Pt required Min A for all functional transfers at RW level. OT Findings: Barriers to Discharge: Comorbidities Eval Complexity Occupational Profile: Expanded review of medical/therapy records and additional review of physical,cognitive, or psychosocial history Clinical Decision Making: Low Overall Eval complexity: Low OT Recommendations Discharge Destination: Home with assistance Discharge Equipment: Patient owns appropriate equipment Plan Patient no longer demonstrates need for inpatient occupational therapy services. Patient to be discharged from occupational therapy. Written by Haris Taveras on 01/29/25 at 4:09 PM. * Care Plan - Chay Zhou RN - 01/29/2025 10:05 AM EDT Problem: Adult Inpatient Plan of Care Goal: Plan of Care Review Outcome: Ongoing, Progressing Goal: Patient-Specific Goal (Individualized) Outcome: Ongoing, Progressing Goal: Absence of Hospital-Acquired Illness or Injury Outcome: Ongoing, Progressing Goal: Optimal Comfort and Wellbeing Outcome: Ongoing, Progressing Goal: Readiness for Transition of Care Outcome: Ongoing, Progressing * Progress Notes - Harley Waggoner MD - 01/29/2025 6:03 AM EDT ORTHOPAEDIC SURGERY RECON PROGRESS NOTE 01/29/2025 SUBJECTIVE Doing well this morning. Pain is controlled. Did not work with PT after OR yesterday, plan to work with them today. Required 1x straight cath yesterday but voided spontaneously afterward, +flatus, tolerating diet. No f/c/s, no N/V, no CP/SOB. OBJECTIVE Visit Vitals BP 107/64 (BP Location: Right arm, Patient Position: Lying) Pulse 71 Temp 36.8 ??C (98.3 ??F) (Oral) Resp 16 Ht 1.803 m (5' 11 ) SpO2 92% BMI 44.13 kg/m?? Smoking Status Never BSA 2.69 m?? Labs in last 18 hours CBC WBC 10.61 (H) Hb 9.8 (L) Plt 292 Hct 30.5 (L) BMP Na 139 Cl 102 BUN 31 (H) Glu 174 (H) K 4.0 Co2 23 Cr 1.62 (H) PHYSICAL EXAMINATION General: No acute distress Non-labored breathing Peripheral perfusion intact Focused Musculoskeletal Exam: Right Lower Extremity Inspection: dressing clean, dry, and intact Motor Exam: Motor intact TA, GSC, EHL, FHL Sensory Exam: SILT DP, SP, Tib, Huffman, and Sa nerve distributions Vascular Exam: Toes WWP ASSESSMENT AND PLAN Preet Montoya is a 74 y.o. male patient POD#1 s/p R TKA (01/28) Edited by: Harley Waggoner MD at 01/29/2025 0451 AFVSS (01/29), H/H 9.8/30.5, BMP Cr 1.62 (01/29) Abx: Duricef DVT Ppx: ASA Dressings: Prineo Nutritional optimization Bowel regimen Pain control PT/OT recommendations: Pending Mobility Orders Mobility Protocol: General - Mobility Guidelines Extremity Precautions: No Extremity Precautions Other mobility precautions: No other precautions required Disposition: Admitted to ORT Recon; Possible discharge home today pending PTOT Follow up: Liya Soto on 02/12 at [facility], Orthopaedic Surgery [address] [place] [address], [address], [place] [address], Harley Waggoner MD Orthopaedic Surgery PGY-2 [facility] Personal Pager: [phone] Orthopaedic Trauma Service Pager: [phone] Orthopaedic Recon/Spine/Foot and Ankle Service Pager: [phone] Cosigned by Leon Anne MD at 01/29/2025 9:12 AM EDT Associated attestation - Leon Anne MD - 01/29/2025 9:12 AM EDT I saw and evaluated the patient with the resident/fellow. I discussed the case with the resident/fellow and agree with the findings and plan as documented. * Anesthesia PACU Signout - Paul Neville DO - 01/28/2025 3:44 PM EDT Patient: Preet Montoya Anesthesia Type: general Vitals Value Taken Time BP 130/59 01/28/25 15:30 Temp 37.3 ??C (99.1 ??F) 01/28/25 14:05 Pulse 85 01/28/25 15:43 Resp 18 01/28/25 15:43 SpO2 92% 01/28/25 15:43 Vitals shown include unfiled device data. Anesthesia PACU Signout Patient location during evaluation: PACU Patient participation: complete - patient participated Level of consciousness: awake Pain management: adequate (pain score 0-3) Airway patency: natural airway Hydration status: acceptable PONV: none Cardiovascular status: acceptable Respiratory status: acceptable, spontaneous ventilation and nonlabored ventilation Discharge Disposition: admit to inpatient unit Cosigned by Deandre Felix MD at 01/28/2025 5:21 PM EDT Associated attestation - Deandre Felix MD - 01/28/2025 5:21 PM EDT I discussed the case with the resident/fellow and agree with the findings and plan as documented. * Consults - Mini Goncalves PA - 01/28/2025 3:36 PM EDTAssociated Order(s): Inpatient consult to Ata Victor Inpatient consult to Ata Victor Consult performed by: Mini Goncalves PA Consult ordered by: Miranda Salamanca APRN Reason For Consult: medical co-management Requested Service: ortho reconstruction Requested Date/Time: 01/28/2025 1505 HISTORY: History Of Present Illness/Chief Complaint: Preet Montoya is a 74 y.o. male with a PMH of HTN, T2DM, BPH, GERD, HLD, morbid obesity, and OA who presents for scheduled right total knee arthroplasty. Medicine is consulted for medical co-management, evaluated post-op on acute floor. Endorses fatigue and mild right knee pain, but otherwise without complaint. Tolerating po intake post-op, has not yet voided. Has history of BPH with baseline nocturia, hesitancy, and double voids. Per records, was prescribed pre-op course of tamsulosin perPOUR protocol, but states he was not aware of the prescription. Denies taking home medications prior to arrival this am. Note he was instructed by his PCP to stop NSAIDs in the past few months and reduced his lisinopril-hydrochlorothiazide tablet to daily due to worsening kidney function. Endorses chronic bilateral lower extremity edema for which he takes lasix daily, denies orthopnea or dyspnea on exertion. Suspects that he has sleep apnea, but was previously unable to tolerate a home sleep study so has not been formally evaluated. Review of Systems Review of Systems Constitutional: Negative for chills, fever and unexpected weight change (down 55lb since starting Ozempic). HENT: Negative. Eyes: Negative. Respiratory: Negative. Negative for apnea, cough, shortness of breath and wheezing. Cardiovascular: Positive for leg swelling. Negative for chest pain and palpitations. Gastrointestinal: Negative for abdominal pain, constipation, diarrhea, nausea and vomiting. Endocrine: Negative. Genitourinary: Positive for difficulty urinating. Negative for dysuria and urgency. Musculoskeletal: Positive for arthralgias. Negative for myalgias. Skin: Positive for rash (inguinal fold skin lesions c/w yeast infection with onset ~ 1y ago, no improvement with topical ointment or Lamisil; recently improved with antifungal powder). Allergic/Immunologic: Negative. Neurological: Negative for dizziness and light-headedness. Hematological: Negative. Psychiatric/Behavioral: Negative. Past Medical History Essential hypertension Diabetes mellitus, type 2 Benign prostatic hyperplasia with LUTS Chronic kidney disease Osteoarthritis Hyperlipidemia Morbid obesity Suspected obstructive sleep apnea Surgical History Past Surgical History: Procedure Laterality Date KNEE ARTHROSCOPY Right Family History Family History Problem Relation Name Age of Onset Anesthesia problems Neg Hx Malig Hyperthermia Neg Hx Social History Social History Tobacco Use Smoking status: Never Smokeless tobacco: Never Vaping Use Vaping status: Never Used Substance Use Topics Alcohol use: Never Drug use: Never Allergies Allergies Allergen Reactions Tetanus Toxoids Itching MEDICATIONS: Home Medications: Current Outpatient Medications Medication Instructions acetaminophen (TYLENOL) 650 mg, Every 6 hours PRN amLODIPine (Norvasc) 5 MG tablet Take 1 tablet by mouth 2 times a day. cyanocobalamin (VITAMIN B-12) 1,000 mcg, Daily famotidine (PEPCID) 20 mg, Daily furosemide (Lasix) 40 MG tablet Take 1 tablet by mouth daily. lisinopril-hydroCHLOROthiazide 20-25 MG tablet Take 1 tablet by mouth daily. magnesium 30 MG tablet 2 tablets, Daily metFORMIN (Glucophage) 1000 MG tablet Take 1 tablet by mouth 2 times a day with meals. oxyCODONE (ROXICODONE) 5 mg, Oral, Every 6 hours PRN pioglitazone (Actos) 15 MG tablet Take 1 tablet by mouth daily. pravastatin (Pravachol) 20 MG tablet Take 1 tablet by mouth daily. tamsulosin (Flomax) 0.4 MG 24 hr capsule Take one capsule daily for 5 days prior to surgery. On theday of surgery, take 2 capsules. The day after surgery, take one capsule. terbinafine (LamISIL) 250 MG tablet Take 1 tablet by mouth daily. triamcinolone (Kenalog) 0.1 % cream Apply 1 Application topically in the morning and 1 Application before bedtime. Inpatient Medications: Scheduled: insulin lispro, 0-5 Units, Subcutaneous, TID with meals insulin lispro, 0-3 Units, Subcutaneous, Twice at night nystatin, 1 Application, Topical, BID scopolamine, 1 patch, Transdermal, Once sodium chloride, 10 mL, Intravenous, q12h [START ON 01/29/2025] tranexamic acid, 650 mg, Oral, TID Continuous: As needed: glucose, 15 grams of glucose, q15 min PRN Or dextrose, 12.5 g, q15 min PRN Or glucagon (human recombinant), 1 mg, q15 min PRN droperidol, 0.625 mg, Once PRN fentaNYL, 25 mcg, q5 min PRN HYDROmorphone, 0.5 mg, q10 min PRN lidocaine, 0.5 mL, Once PRN oxyCODONE, 5 mg, Once PRN Or oxyCODONE, 10 mg, Once PRN sodium chloride, 10 mL, PRN sodium chloride, 10 mL, q8h PRN And sodium chloride, 10 mL, PRN EXAM: Last Recorded Vitals Vitals: 01/28/25 1415 01/28/25 1420 01/28/25 1425 01/28/25 1430 BP: (!) 148/65 135/58 124/73 (!) 151/56 BP Location: Patient Position: Pulse: 94 90 88 91 Resp: 19 20 13 17 Temp: TempSrc: SpO2: 97% 92% 93% 93% Height: Intake/Output Summary (Last 24 hours) at 01/28/2025 1536 Last data filed at 01/28/2025 1409 Gross per 24 hour Intake 1333.34 ml Output 50 ml Net 1283.34 ml Admission weight: Physical Exam Vitals and nursing note reviewed. Constitutional: General: He is not in acute distress. Appearance: He is obese. HENT: Head: Normocephalic and atraumatic. Mouth/Throat: Mouth: Mucous membranes are moist. Eyes: Conjunctiva/sclera: Conjunctivae normal. Pupils: Pupils are equal, round, and reactive to light. Cardiovascular: Rate and Rhythm: Normal rate and regular rhythm. Heart sounds: No murmur heard. Pulmonary: Effort: Pulmonary effort is normal. No respiratory distress. Breath sounds: No wheezing or rales. Abdominal: General: Bowel sounds are decreased. There is no distension. Palpations: Abdomen is soft. Tenderness: There is no abdominal tenderness. Musculoskeletal: Cervical back: Neck supple. Right lower leg: Edema (trace, non-pitting) present. Left lower leg: Edema (trace, non-pitting) present. Comments: Right knee GAB wrap and cryo cuff in place Lymphadenopathy: Cervical: No cervical adenopathy. Skin: General: Skin is warm and dry. Capillary Refill: Capillary refill takes 2 to 3 seconds. Findings: Rash (erythematous skin rash involving inguinal folds (left > right) and minimally in axilla) present. Neurological: General: No focal deficit present. Mental Status: He is alert and oriented to person, place, and time. Psychiatric: Mood and Affect: Mood normal. Behavior: Behavior normal. RESULTS: Recent labs and imaging personally reviewed and noted below: Labs: CMP: Lab Results Component Value Date GLUCOSE 117 (H) 12/17/2024 BUN 39 (H) 12/17/2024 CREATININE 1.95 (H) 12/17/2024 BCR 20 12/17/2024 NA 139 12/17/2024 K 4.1 12/17/2024 CL 97 12/17/2024 CO2 25 12/17/2024 ALBUMIN 4.5 12/17/2024 A1C: Lab Results Component Value Date HGBA1C 6.2 (H) 12/17/2024 CBC: Lab Results Component Value Date WBC 11.02 (H) 12/17/2024 HGB 12.4 (L) 12/17/2024 HCT 39.4 (L) 12/17/2024 MCV 92 12/17/2024 PLT 341 12/17/2024 Cardiology: Encounter Date: 12/17/24 ECG Adult (Now - Performed in your clinic) Result Value EKG DIAGNOSIS CLASS Borderline Abnormal Ventricular Rate 84 Atrial Rate 84 AR Interval 258 QRSD Interval 112 QT Interval 374 QTC Interval 441 P [place] 61 R [place] 23 T Wave [place] 0 Diagnosis Sinus rhythm with 1st degree AV block Diagnosis Incomplete right bundle branch block Diagnosis Borderline ECG Diagnosis Diagnosis Confirmed by Trey Marcelino ([id number]) on 12/17/2024 1:50:00 PM *Note: Due to a large number of results and/or encounters for the requested time period, some results have not been displayed. A complete set of results can be found in Results Review. No echocardiogram results found for the past 12 months ASSESSMENT AND PLAN: Preet Montoya is a 74 y.o. male with history of HTN, T2DM, BPH, GERD, HLD, morbid obesity, andOA who presents for scheduled right total knee arthroplasty. Medicine is consulted for medical co-management. Essential HTN Chronic lower extremity edema - Mildly hypertensive on arrival, currently normotensive post-op - Resume home amlodipine in am depending on BP trend - Hold home lisinopril-hydrochlorothiazide, resume depending on BP and renal function trend - Hold home lasix for OR, resume based on edema DM type 2, controlled - A1c 6.2% 11/2024, home regimen includes metformin, pioglitazone, and Ozempic which are currently held for surgery - Glucose 150 on arrival, stable < 180 post-op - FSBG AC/HS and lispro SSI ordered while inpatient with plan to resume metformin in am if tolerating po intake - CC2 diet Right knee osteoarthritis s/p TKA with associated reduced mobility - s/p right TKA today - PT/OT rec home with assist - DVT ppx: ASA 81mg bid - Analgesia and bowel regimen per primary BPH with LUTS - Reports baseline nocturia and urinary hesitancy at times requiring double voiding to empty bladder - Prescribed tamsulosin per post-up urinary retention protocol, but patient notes he wasn't aware of prescription - Tamsulosin 0.4mg ordered for this evening, monitor bladder scans to assess for retention Chronic intertriginous candidiasis - Per patient, onset of inguinal skin irritation ~ 1y ago, no significant improvement with lamisil or salve with fill history showing triamcinolone cream - Avoid topical steroid, agree with topical nystatin powder to skin folds - Continue DM management as above - Discussed with primary team, plan to initiate course of oral fluconazole Chronic kidney disease - Cr 1.9 12/17, repeat 1.5 01/23 without prior records for comparison - Avoid potential nephrotoxins, including NSAIDs - Monitor UOP, trend BMP in am Chronic/stable conditions: - HLD: resume pravastatin - GERD: takes famotidine at baseline, PPI ordered post-op per primary for GI ppx - Suspected SUELLEN: previously unable to tolerate home sleep study, reviewed potential CV risks associated with untreated SUELLEN and recommend formal sleep study as outpatient; supplemental O2 prn to maintain SpO2 > 91% - Morbid obesity: BMI 44.1, complicates all aspects of care Thank you for allowing us to participate in this patient's care, we will continue to follow. Pleasecontact the hospital medicine DIANN ([facility] consult DIANN 7A- 7P, night DIANN 7P-7A) with questions or concerns. Thank you for allowing us to participate in this patient's care, we will continue to follow. Pleasecontact the [facility] consult DIANN 7A-7P or night DIANN 7P-7A with questions or concerns. Mini Goncalves PA-C Division of Hospital Medicine Secure chat preferred Cosigned by Michelle Rizzo MD at 02/11/2025 1:18 PM EDT * Blanche Sumner RN - 01/28/2025 3:10 PM EDT Images from the original note were not included. 93 Polar Care Ice Therapy Your doctor has prescribed an ice therapy machine to help lower your pain and swelling after your surgery. The Polar Care machine consists of a pad that you place on your body connected to a special ?cooler? of ice water. When you turn it on, ice cold water runs non-stop from the machine through tubes in the pad and numbs the area under the pad. The Polar Care pad gets very cold and can cause serious damage to your skin and nerves if you don?tuse it correctly. Follow these instructions carefully ?? Always place a towel or T-shirt between the pad and your skin. Don?t let any part of the pad touch your bare skin. ?? Turn the machine on for 1 hour and then off for 1 hour whenever you are awake. ?? Don?t use the machine while you sleep. ?? Look at the skin that is under the pad every hour. If it is in a spot you can?t easily see, havesomeone else check it for you. ?? If the part of your body that you are using ice on is still numb from surgery, you need to be very careful as you won?t be able to feel pain or burning from the ice. ?? Tell your doctor or nurse if you have circulation problems or diabetes or if you have had frostbite in the past. ?? To save time and use less ice, the cooler with fit 4 standard water bottles (16.9 ounces each). Freeze the water bottles and place them in the cooler. Then fill the cooler with water to the fill line marked inside the cooler. This will keep the water cold for up to 2 days. Freeze 4 more bottles to have them ready to rotate when needed. Stop using the machine immediately and call your doctor if you have any of the following ?? Pain or swelling that gets worse ?? Blisters or welts ?? Increased redness or your skin changes color ?? Burning feeling * Blanche Sumner RN - 01/28/2025 3:10 PM EDT Images from the original note were not included. [id number] After Knee Replacement: Using a Walker Following your healthcare provider's instructions after knee replacement helps with early recovery.Once you can stand, you?ll start using a walker. Use the walker for moving around as long as the provider asks you to. This is generally four to six weeks but may vary from person to person. There are three main types of walkers: ?? Standard without wheels ?? 2-wheeled (front) rolling walker ?? 4-wheeled rolling walker Your physical therapist or another member of your healthcare team will help you select the best walker for you. As you become better at using the walker and your knee strengthens, you?ll be taught more advanced skills. For instance, after your physical or occupational therapist or physical optics teacher has shown you the correct procedures, you may practice stepping on and off a curb as directed. Your first steps ?? Push your walker a few inches in front of you. ?? Keeping your back straight, lean on the walker so it supports your weight. Step into the center of the walker with your operated leg, being careful not to twist your leg. Then, step with your other leg. ?? As you get more comfortable using the walker, you may be able to move it as you step. Walking up a curb ?? Move your feet and the walker as close to the curb as possible. ?? Put your weight on both your legs, then lift the walker onto the curb. ?? Step up with the un-operated leg. Using the walker to support your weight, bring up the operatedleg. Walking down a curb ?? Move your feet and the walker as close to the edge of the curb as you safely can. ?? Lower the walker onto the ground, keeping its back legs against the curb. ?? Using the walker to support your weight, lower the operated leg. Then step down with the other leg. Last Reviewed Date: 2024 00:00:00 ?? [id number] [employer]. All rights reserved. This information is not intended as a substitute for professional medical care. Always follow your healthcare professional's instructions. * Ricardo Sumnerbushra N, RN - 01/28/2025 3:10 PM EDT Images from the original note were not included. 31471 Preventing Deep Vein Thrombosis After Surgery In the days and weeks after surgery, you have a higher chance of developing a deep vein thrombosis (DVT). This is a condition in which a blood clot or thrombus develops in a deep vein. They are most common in the leg. But a DVT may develop in an arm or another deep vein in the body. A piece of the clot, called an embolus, can separate from the vein and travel to the lungs. A blood clot in the lungs is called a pulmonary embolus (PE). This can cut off the flow of blood to the lungs. It's a medical emergency and may cause . Healthcare providers use the term venous thromboembolism (VTE) to describe both DVT and PE. They use the term VTE because the two conditions are very closely related and their prevention and treatment are similar. Prevention in the hospital or other facility Your healthcare provider will usually prescribe one or more of the following to prevent blood clots: ?? Blood-thinner (anticoagulant). This medicine prevents blood clots. You take it by mouth, by injection, or through an IV (intravenous). Commonly used anticoagulants include warfarin and heparin. Newer anticoagulants may also be used, including rivaroxaban, apixaban, dabigatran, and enoxaparin. Sometimes, your healthcare provider may not give you an anticoagulant medicine. It's important that they discuss the risks and benefits with you and document them. ?? Compression stockings. These elastic stockings fit tightly around your legs. They help keep blood flowing toward your heart by the pressure they apply. They prevent blood from pooling and forming blood clots. When you first put them on, the stockings may be uncomfortable. But after a while, you should get used to them. ?? Exercises. Simple exercises while you are resting in bed or sitting in a chair can help prevent blood clots. Move your feet in a [place] or up and down. Do this 10 times an hour to improve circulation. ?? Getting out of bed and walking (ambulation). After surgery, a nurse will help you out of bed as soon as you are able. Moving around improves circulation and helps prevent blood clots. ?? Sequential compression device (SCD) or intermittent pneumatic compression (IPC). Plastic sleevesare wrapped around your legs and connected to a pump that inflates and deflates the sleeves. This applies gentle pressure to promote blood flow in the legs and prevent blood clots. Remove the sleevesso that you don't trip or fall when you are walking. For example, when you use the bathroom or shower. If you need help removing the sleeves, ask for help. Prevention at home Ankle exercises can help keep blood flowing in the veins. Deep vein thrombosis can happen even after you go home. Follow all instructions from your healthcare provider. The following are some general guidelines about DVT prevention: ?? Blood-thinner medicine. If a blood thinner was prescribed, make sure you follow all directions about taking it. Be sure you know what foods and medicines may interact. Also, ask your healthcare provider what to do if you forget to take a dose. ?? Compression stockings. Your healthcare provider will tell you how often to wear and remove the stockings. Follow all instructions closely. Each time you remove your stockings, check your legs and feet for reddened areas or sores. If you see any changes, call your healthcare provider right away. ?? Returning to activity. Follow all instructions about returning to activities. Be as active as you can. This improves blood flow and helps prevent a clot from forming. When in bed or in a chair, continue with the ankle exercises you did in the hospital. ?? Sequential compression device (SCD) or intermittent pneumatic compression (IPC). In some cases, this device may be recommended at home. If you are using this device at home, make sure you closely follow all instructions from your healthcare provider. You will be instructed on how often and for how long to use the device. Again, remove the sleeves if you are up and walking. When to call your healthcare provider You may have signs or symptoms of a blood clot. Or you may have signs or symptoms of bleeding from medicines to prevent clots. Call your healthcare provider if you have the following: ?? Pain, swelling, or redness in the leg, arm, or other area ?? Blood in the urine or stool ?? Very dark or tar-like stool ?? Vomiting with blood ?? Bleeding from the nose ?? Bleeding from the gums ?? A cut that will not stop bleeding ?? Bleeding from the vagina Call 911 Call 911 if you have any of the following: ?? Chest pain ?? Shortness of breath ?? Fast heartbeat ?? Excessive sweating ?? Fainting ?? Coughing (may cough up blood) ?? Heavy or uncontrolled bleeding Last Reviewed Date: 2022 00:00:00 ?? [id number] [employer]. All rights reserved. This information is not intended as a substitute for professional medical care. Always follow your healthcare professional's instructions. * Kristin OnFHIR - Blanche Busch RN - 01/28/2025 3:10 PM EDT Images from the original note were not included. 21843 Using an Incentive Spirometer An incentive spirometer is a handheld device that helps you do deep breathing exercises after surgery. It also helps lower the risk of breathing problems if you have a lung disease or condition. These exercises expand your lungs, aid in circulation, and may help prevent pneumonia. Deep breathing exercises also help you breathe better and improve lung function by: ?? Keeping your lungs clear. ?? Making your breathing muscles stronger. ?? Helping prevent respiratory complications or problems. The incentive spirometer gives you a way to take an active part in your recovery. A nurse or respiratory therapist will teach you breathing exercises. To do these exercises, you will breathe in through your mouth and not your nose. The incentive spirometer only works correctly if you breathe in through your mouth. Deep breathing expands the lungs, aids circulation, and helps prevent pneumonia. Your health care provider or their staff will tell you how to use the device, your targeted volume(s), and provide other helpful tips to prevent complications (such as pain, dizziness, feeling lightheaded) when blowing in the incentive spirometer. Steps to clear lungs Step 1. Exhale normally. Then, inhale normally. ?? Relax and breathe out. Step 2. Place your lips tightly around the mouthpiece. ?? Make sure the device is upright and not tilted. ?? Sit up and breathe out (exhale) fully. ?? Tightly seal your lips around the mouthpiece. Step 3. Inhale as much air as you can through the mouthpiece. Don't breathe through your nose. ?? Breathe in (inhale) slowly and deeply. ?? Hold your breath long enough to keep the balls, piston, or disk raised for at least 3 to 5 seconds, or as instructed by your health care provider. ?? Exhale slowly to allow the balls, piston, or disk to fall before repeating. Note: Some spirometers have an indicator to let you know that you are breathing in too fast. If theindicator goes off, breathe in more slowly. Step 4. Repeat the exercise regularly. ?? Do sets of 10 exercises every hour while you're awake, or as instructed by your health care provider. Don't do more than 30 breaths in each set. ?? If you were taught deep breathing and coughing exercises, do them regularly as instructed by your provider, nurse, or respiratory therapist. Follow-up care Make a follow-up appointment as directed by your health care provider. Also, follow up with your provider as advised if your symptoms don't improve or continue to get worse. When to contact your doctor Contact your health care provider right away if you have: ?? A fever 100.4?? (38??C) or higher, or as advised by your provider. ?? Brownish, bloody, or smelly sputum (phlegm that you cough up). Call 911 Call 911 if any of these occur: ?? Shortness of breath that doesn't get better after taking your medicine ?? Cool, moist, pale, or blue skin ?? Trouble breathing or swallowing, wheezing ?? Fainting or loss of consciousness ?? Feeling of dizziness or weakness, or a sudden drop in blood pressure ?? Feeling very ill ?? Lightheadedness ?? Chest pain or rapid heart rate Last Reviewed Date: 2024 00:00:00 ?? [id number] [employer]. All rights reserved. This information is not intended as a substitute for professional medical care. Always follow your healthcare professional's instructions. * Kristin OnLEXIS - Blanche Busch RN - 01/28/2025 3:10 PM EDT Images from the original note were not included. 84812 Preventing a Surgical Site Infection A risk of any surgery is an infection at the surgical site. The surgical site is a cut the surgeon makes in the skin to do the surgery. Surgical site infections can range in type. It may be a minor skin infection. Or it may be severe and include tissue under the skin or other organs. In some cases,a severe infection can cause . The information below tells you: ?? About surgical site infections. ?? What hospitals do to prevent them. ?? How they?re treated if they do occur. ?? What you can do to prevent an infection. Hand washing reduces the risk of infection. What causes a surgical site infection? Germs are everywhere. They?re on your skin, in the air, and on things you touch. Many germs are good. Some are harmful. Surgical site infections occur when harmful germs enter your body through the incision in your skin. Some infections are caused by germs that are in the air or on objects. But most are caused by germs found on and in your own body. Who is at risk for a surgical site infection? Anyone can have a surgical site infection. Your risk is higher if you: ?? Are an older adult. ?? Have a weak immune system. ?? Have other health conditions such as diabetes. ?? Take certain medicines, such as steroids. ?? Are a smoker. ?? Have certain types of surgery, such as abdominal surgery. ?? Have poor nutrition. ?? Are very overweight. ?? Have a surgery that lasts longer than 2 hours. What are the symptoms of a surgical site infection? An infection often shows up as skin redness, pain, and swelling around the incision that gets worse. Later, a cloudy or greenish-yellow fluid may come from the incision. The fluid may smell bad. The incision may pull apart or open up. You are likely to have a fever and may feel very ill. Symptoms can appear at any time. They may happen from hours to weeks after surgery. Implants such as an artificial knee or hip can become infected at any time after the surgery. How is a surgical site infection treated? ?? A surgical site infection is treated with antibiotics. The type of medicine you get will depend on what may be causing the infection. Most serious wound infections need wound care. In some cases, surgery may be needed on the infected wound. ?? An infected skin wound may be reopened and cleaned. A deep wound may need to be packed with gauze. The gauze is changed often until the wound starts to heal from the inside out. Your health care provider will decide the best way to treat your infection. ?? If an infection occurs where an implant is placed, the implant may be removed. ?? If you have an infection deeper in your body, you may need surgery to treat it. What hospitals do to prevent surgical site infections Many hospitals take these steps to help prevent surgical site infections: ?? Handwashing. Before the surgery, your surgeon and all surgery staff scrub their hands and arms with an antiseptic soap. ?? Clean skin. The site where your incision is made is carefully cleaned with an antiseptic solution. ?? Sterile clothing and drapes. The surgical team wears medical uniforms. These are known as scrub suits. They wear long-sleeved surgical gowns, masks, caps, shoe covers, and sterile gloves. Your body is fully covered with a large sterile sheet (sterile drape). There is an opening in the sheet where the incision is made. ?? Clean air. Operating rooms have special air filters. They use positive pressure airflow to prevent unfiltered air from entering the room. ?? Careful use of antibiotics. Antibiotics are given no more than 60 minutes before the incision ismade. They are generally stopped within 24 hours after surgery. This depends on the type of surgery. This helps kill germs but prevents problems that can occur when antibiotics are taken longer. ?? Controlled blood sugar levels. Your blood sugar level may rise. This can be because of the stress of the surgery. Your blood sugar level is watched closely to make sure it stays within a normal range. High blood sugar delays wound healing. This increases the risk of infection. ?? Controlled body temperature. A zkwer-eomz-hjwoiq temperature during or after surgery prevents oxygen from reaching the wound. This makes it harder for your body to fight infection. Hospitals may warm I.V. fluids, and provide warm-air blankets. Your temperature is watched throughout the surgery. ?? Safe hair removal. Any hair that must be removed is clipped right before the incision, not shaved with a razor. This prevents tiny nicks and cuts where germs can enter. ?? Wound care. After surgery, a closed wound is covered with a sterile dressing for 1 to 2 days. Open wounds are packed with sterile gauze and covered with a sterile dressing. What you can do to prevent a surgical site infection ?? Ask questions. Learn what your hospital is doing to prevent infection. ?? If instructed, shower or bathe with plain soap the night before and the day of your surgery. Follow all instructions you're given. You may be asked to use a special cleanser that you don?t rinse off. ?? If you smoke, stop as long as possible before and after the surgery. Ask your provider about ways to quit. ?? Take antibiotics only when your provider tells you to. Using antibiotics when they?re not neededcan create germs that are harder to kill. Finish the entire prescription of your antibiotics even if you feel better. ?? Ask health care workers to clean their hands with plain soap and water or with an alcohol-based hand solar photovoltaic systems engineer before and after caring for you. Don?t be afraid to remind them. ?? After surgery, eat healthy foods. Care for your incision as directed by your health care team. When to contact your doctor Contact your provider or seek medical care right away if: ?? The pain at the surgical site gets worse. ?? A red streak, worse redness, or puffiness appears near the incision. ?? Yellowish, cloudy, or bad-smelling fluid leaks from the incision. ?? Your stitches dissolve before the wound heals. ?? You have a fever of 100.4?? F ( 38??C ) or higher, or as advised by your provider. ?? You have a tired feeling that doesn?t go away. Last Reviewed Date: 2024 00:00:00 ?? [id number] [employer]. All rights reserved. This information is not intended as a substitute for professional medical care. Always follow your healthcare professional's instructions. * Kristin OnMILA - Blanche Busch RN - 01/28/2025 3:10 PM EDT Images from the original note were not included. 213 After Total Knee Replacement After your knee replacement, you will need to follow these instructions to avoid complications. Follow these instructions from the time you go home until your doctor says you can stop. Incision care ?? If your incision has sutures or terri, do not shower until after you return to the clinic. ?? If your incision is closed with Dermabond Prineo and liquid skin adhesive, you may shower 24 hours after all drainage stops. Leave it in place until your follow-up appointment. ?? Sit on a shower chair or tub bench when you shower to keep from falling. Carefully wash around your incision with soap and water. Rinse the incision well. Then gently pat it dry. ?? Do not rub the incision or apply creams or lotions. ?? If your incision is not draining, you do not need a dressing over it. You may cover your incision with a light, dry bandage if you want. ?? Check your incision daily for redness, swelling, tenderness or drainage. Swelling ?? You will go home with a Polar Pack (ice machine). This will help reduce swelling in your knee and decrease your pain. ?? Use the Polar Pack for 20 minutes 3 times a day after doing your exercises and as needed to decrease swelling and pain. ?? Do not place the Polar Pack directly on the skin, You must have clothing, a washcloth, or a pillowcase between the Polar Pack and your skin. ?? To refill the Polar Pack, open the cooler lid and add ice and water as directed before each use. ?? An GAB bandage will be on your leg after surgery. This can help to prevent swelling and is helpful to use for the first 1-2 weeks after surgery. Activity and exercise ?? Follow your doctor?s orders for how much weight to put on the affected leg. ?? Walk often and do the exercises physical therapy has taught you three times a day. ?? Gradually increase your activity every day. ?? Walk up and down stairs with support. Use the railing if possible. Try one step at a time - goodknee up, bad knee down. ?? Use a cane, crutches, a walker or handrails until your balance, flexibility and strength improve. And remember to ask for help from others when you need it. ?? Don?t engage in any jarring sports or activities such as jogging, tennis, or basketball until you have discussed this with your doctor. Sitting and lying down ?? Raise your leg when sitting to help decrease swelling. ?? Put a pillow under your ankle, not your knee. ?? Sit in chairs with arms. The arms make it easier for you to stand up or sit down. ?? Do not sit for more than 30 to 45 minutes at a time. ?? Nap if you are tired, but don?t stay in bed all day. ?? It is OK to sleep on your stomach or side. Use pillows between your legs when sleeping on your side. Be sure to change the position of your operated leg during the night. Bathroom safety ?? Use nonslip bath mats, grab bars and a shower chair in your bathroom. Riding and driving ?? Sit on a firm cushion when you ride in a car. ?? Don?t drive while you are taking narcotic pain medicine. ?? Don?t drive until your doctor says it?s ok. Most people can start driving two to four weeks after surgery. Managing pain ?? You should expect to have some pain as you heal. This pain may last weeks or months. ?? Take pain medicine as directed. Do not skip or add doses. ?? Take them at least 20 minutes before doing activities. Take them 30 to 60 minutes before exercise or physical therapy. ?? Do not take other pain medicines unless your doctor approves. This includes ydvx-uro-rtjgafm medicines like aspirin, ibuprofen and Tylenol. ?? As you heal, you will need less pain medicine. Try taking one pill instead of two. Or take them two times a day instead of three times a day. ?? Raise your leg. Rest your leg on pillows. The knee should be higher than your hip. Do this when you are in bed or in a chair to help reduce swelling. Do not put a pillow under your knee. This could cause a blood clot or limit how much your knee bends as you heal. ?? Get up and move. This may help relieve discomfort at night. ?? You can also try listening to music, relaxing, distracting your mind or repositioning your leg. Preventing infection ?? Avoid infection by washing your hands often. ?? Call your surgeon right away if you think you have an infection in your operated knee. Signs include a fever, redness, increased pain, or an incision that leaks white, green or yellow fluid. ?? Avoid soaking your incision in water (no hot tubs, bathtubs, swimming pools) until your doctor says it?s ok which is typically around 4 weeks after surgery. ?? Wait 3 weeks after your surgery to shave your legs. ?? Wait 3 weeks after your surgery to get a flu or pneumonia vaccine. ?? Wait 2 months after your surgery for any routine dental appointments. When scheduling an appointment, be sure to tell your dentist that you have had a knee replacement. After knee replacement, your dentist may prescribe antibiotics for dental procedures. ?? Call your family doctor right away if you think you might have an infection elsewhere. Preventing blood clots ?? Take blood-thinning medicine as directed to prevent blood clots. ?? The nurses staff will teach you how to give the enoxaparin injection, if needed. ?? Do not miss doses of blood thinning medicine. ?? Use caution when taking long car trips or traveling by airplane for the first 6 weeks after surgery. If you must take a long car trip, stop every hour and walk for 10-15 minutes. Your doctor may recommend a blood thinner if you are flying within 6 weeks of surgery. Diet ?? It is normal to have a decreased appetite after surgery. Drink a nutritional supplement such as Boost or [place] Instant Breakfast until your appetite returns to normal. ?? Maintain a healthy weight. Added body weight puts stress on the knee. Get help to lose any extrapounds. Preventing constipation ?? Narcotic pain medicines can cause constipation. ?? Take stool softener as prescribed. ?? Drink plenty of fluids, especially water. ?? Increase fiber in your diet. Fruits, vegetables, beans, nuts and whole grains have fiber in them. ?? Call your doctor if your bowels do not move in the next few days after surgery. Sleep ?? Some patients have a hard time sleeping after surgery. ?? If you have problems sleeping, take vrlc-kex-wxyqfce diphenhydramine (Benadryl) or melatonin. ?? If you still have problems sleeping, call the clinic. You may need a prescription for a sleep aid. Follow-up care ?? Your orthopaedic surgeon will schedule follow-up exams to make sure that your knee is healing correctly. Use this time to ask any questions you have about your recovery or activities. ?? If you need a prescription refill before your next appointment, call [phone]. Call 2 business days before you run out. ?? To check joint stability over time, you may have X-rays every five years. When should I call the doctor? Call 911 right away if you have any of the following: ?? Chest pain ?? Shortness of breath or trouble breathing Call your doctor if you have any of the following: ?? An increase in knee pain ?? Pain or swelling in a calf or leg ?? Unusual redness, heat or drainage at the incision site ?? Fever of 101.5 degrees F or higher or shaking chills ?? Increased swelling in your leg * Op Note - Leon Anne MD - 01/28/2025 12:14 PM EDT Operative Note Date: 01/28/25 Location: [facility] OR Name: Preet Montoya, : 1950, SURGEON: Leon Anne M.D. FOUNDRY TENDER #1: Harley Das MD as there was no qualified resident available FOUNDRY TENDER #2: Harley Waggoner MD PREOPERATIVE DIAGNOSIS: Advanced degenerative joint disease secondary to osteoarthritis of the Right Knee Morbid Obesity POSTOPERATIVE DIAGNOSIS: same PROCEDURE: Right Total Knee Arthroplasty Computer Assisted Navigation of Right Total Knee Arthroplasty, Imageless IMPLANTS: Embedded Firmware Developer: [employer] Brand: Journey 2.0 Tibial component size: 8 Femoral component:? 8 BCS Tibial insert: 11 mm, Type: BCS Patellar component: 41 mm oval SURGICAL DETAILS: 1. Incision / arthrotomy type: Midvastus 2. Estimated blood loss: 50 cc 3. Tourniquet time: 5 min 4. Case duration: 120 min 5. Crystalloid replacement: 1000 cc 6. Anesthesia type: General 7. Specimens removed: Bone and cartilage cuts from distal femur, proximal tibia, and patella. 8. Capsular injection: 50 cc 0.5% Bupivicaine with epi, 30 mg Toradol 9. Preoperative Antibiotics: 3 g Cefazolin, 2 g Vancomycin 10. TXA: 2 g IV INDICATIONS FOR PROCEDURE: This patient presents today with endstage degenerative joint disease of the knee. The patient has failed non-operative treatment and presents for total knee replacement. Risks, complications, and benefits of the procedure have been discussed preoperatively to include but not limited to infection, bleeding, anesthesia risks, damage to neurovascular structures, osteolysis, aseptic loosening, instability, anterior knee pain, continued pain, iatrogenic fracture, dislocation, need for future surgeryincluding the potential for amputation, DVT, NV, stroke, and . The patient completed preoperative medical clearance and joint arthroplasty education. Given the patient's morbid obesity we did discuss prior to the procedure that they were at increased risk for perioperative complications including infection and wound related issues and they still wish to proceed with above indicated procedure. PROCEDURE: The patient was seen in the preoperative holding area and the operative site confirmed. The risks, benefits, and alternatives to surgery were again confirmed with the patient. The patient was given iodine swabs for the nares for MRSA decolonization. SCD was placed to the nonoperative extremity. The patient was brought to the operating room and placed on the operating room table in the supine position. After anesthesia was established, the patient was positioned supine and a tourniquet placed on the proximal thigh. Bony prominences were padded. The patient was given prophylactic antibiotics within one hour of skin incision with Vancomycin and the other antibiotic for gram negative coverage. Vancomycin was given over concerns for MRSA prevention. TXA of 1 g was given and 1 g was given at skin closure. Surgical timeout was taken to confirm the operative side and planned procedure. The involved lower extremity was prepped and draped in usual sterile fashion. The limb was elevated and exsanguinated with an esmarch and the tourniquet inflated. A straight incision was used medial to the midline carried through the subcutaneous tissue to the underlying extensor mechanism. A midvavstus approach was utilized. The tourniquet was deflated at that time. Aquamantys bipolar sealer was utilized to maintain hemostasis throughout the procedure. Given the patient's morbid obesity this did require larger skin incision as well as additional time for placement and maintenance of the retractors throughout the procedure. The distal femoral cut was performed using the [employer] Imageless Navigation. The pin was placed to the distal femur and the navigation unit was then attached. The alignment was set at 3.5o for flexion and for 1 varus to the mechanical axis of the leg. The distal femoral cutting block was then pinned to the distal femur and we performed the cut. The proximal tibia was cut using the [employer] Imageless Navigation. The cutting guide was placed and our alignment was set to be perpendicular to themechanical axis of the tibia and 1?? of tibial slope. We set to guide to take 10 mm off the unaffected side. Extension block was placed to ensure sufficient distal femur and proximal tibia and ensurethe extension gap was balanced medial and lateral. The flexion and extension gaps were then matched. The femur was sized and appropriate external rotation was set to be 90 degrees to Suha's lineand parallel to the transepicondylar axis. The 4-1 cutting guide was placed and the cuts were performed. The following releases were required to balance the knee: deep MCL, PCL, posterior capsule. Marginal osteophytes were removed and a lamina statistics tutor was utilized with the knee in 90?? of flexion to clear posterior osteophytes, loose bodies and meniscal remnants. The trial tibial baseplate was then placed with appropriate external rotation. The trial femoral component was then placed in appropriate medial to lateral position and pinned in placed with preparation of the intercondylar box was performed. The trial liner was then placed. The patella was evertedand a partial lateral facetectomy with patellar resurfacing was performed, removing marginal osteophytes. The knee was tested for full extension, stability to stress in extension, mid flexion, and 90?? of flexion, as well as for patellar tracking. The tibial rotation was marked, final preparation for femoral component was performed. The tibial baseplate was then pinned into position while preparation of the keel was performed. The trial implants were removed. All bone was then prepared with lavage and drying for cementation.The implants were cemented into position and excess cement was removed. The trial liner was placed and the knee was reduced and motion and stability was again tested. After cement hardened, the tibial insert was exchanged to the final tibial insert which was impacted into position. The knee was irrigated with sterile, diluted betadine and with normal saline. 1 g of Vancomycin powder was placed inside the arthrotomy. We injected our pericapsular anesthetic at this point. The wound was closed in layers with Stratafix and #1 Vicryl, followed by Monocryl and Stratafix in running subcuticular fashion and then with Dermabond Prineo was applied to the skin incision. SCD was applied to the operative extremity. The patient tolerated the procedure well and was taken to the r ecovery room in good condition. No apparent complications at the conclusion. Sponge, instrument, and needle counts were correct x 2. Of note given the patient's morbid obesity this did require additional time for the layered wound closure and closure the larger skin incision. The patient underwent risk stratification preoperatively and Eliquis was chosen for DVT prophylaxis. Delay in starting chemical prophylaxis for 23 hours from surgical incision was over concerns for hematoma formation and wound related issues. This is an addendum for the 22 modifier. Given the patient's morbid obesity, this took additional time for larger skin incision, placement of retractors, maintenance of retractors, and layered wound closure. Thus, this required increased time and effort to complete this procedure compared to the routine case and increased our operative time and effort by 20 %. There was no qualified resident for this case. Harley Das MD who has operative credentials at the [facility]. His assistance was needed for exposure, retraction, implantation and closure of the wound. I was present for the entire procedure. Submitted by: Leon Anne MD - 01/28/2025 * H&P - Harley Waggoner MD - 01/28/2025 9:55 AM EDT ORTHOPAEDIC SURGERY PRE-OPERATIVE H+P Chief Complaint: Right knee pain History of Present Illness: Preet Montoya is a 74 y.o. male presenting with above complaint and was previously evaluated and deemed a candidate for surgery based on history and physical exam. They are feeling well on day of surgery. No changes to medical history. All questions answered. Past Medical History: has a past medical history of Diabetes (CMS/HCC), GERD (gastroesophageal reflux disease), HLD (hyperlipidemia), and HTN (hypertension). Surgical History: has a past surgical history that includes knee arthroscopy (Right). Family History: Family History[1] Social History: reports that he has never smoked. He has never used smokeless tobacco. He reports that he does not drink alcohol and does not use drugs. Allergies: Tetanus toxoids Medications: Current Medications[2] Review of systems: negative unless noted in the HPI Physical exam: Last recorded vitals: There were no vitals taken for this visit. refer to nursing notes General: no apparent distress, nonlabored breathing HEENT: speaks clearly, eyes open CV: perfused extremities Respiratory: moves air well, nonlabored breathing right Lower Extremity Inspection: Skin closed, dry Motor Exam: Motor intact TA, GSC, EHL, FHL Sensory Exam: SILT DP, SP, Tibial, Huffman, and Sa nerve distributions Vascular Exam: Palpable DP pulse, Cap refill <2 seconds, Toes WWP Left lower extremity: superficial erythema and epidermal blistering in groin Refer to anesthesiology H and P for other pertinent physical findings related to surgical preparedness. Assessment/Plan: Unilateral primary osteoarthritis, right knee Procedure(s) (LRB): ARTHROPLASTY, KNEE, TOTAL, USING COMPUTER-ASSISTED NAVIGATION (Right) To OR today with Dr. Anne NPO since midnight Extremity marked Informed consent obtained for surgery Harley Waggoner MD Orthopaedic Surgery PGY-2 [facility] [1] Family History Problem Relation Name Age of Onset Anesthesia problems Neg Hx Malig Hyperthermia Neg Hx [2] Current Facility-Administered Medications Medication Dose Route Frequency Provider Last Rate Last Admin ceFAZolin (Ancef) injection 3 g 3 g Intravenous Once Leon Anne MD lidocaine (Xylocaine) 1 % injection 0.5 mL 0.5 mL Injection Once PRN Kwasi Mckeon MD scopolamine (Transderm-Scop) patch 1 patch 1 patch Transdermal Once Leon Anne MD sodium chloride 0.9 % flush 10 mL 10 mL Intravenous q12h Kwasi Mckeon MD And sodium chloride 0.9 % flush 10 mL 10 mL Intravenous PRN Kwasi Mckeon MD sodium chloride 0.9 % flush 10 mL 10 mL Intravenous q8h PRN Leon Anne MD And sodium chloride 0.9 % flush 10 mL 10 mL Intravenous PRN Leon Anne MD tranexamic acid (Cyklokapron) 1,500 mg in sodium chloride 0.9 % 100 mL (15 mg/mL) infusion 1,500 mgIntravenous Once Leon Anne MD tranexamic acid (Cyklokapron) 1,500 mg in sodium chloride 0.9 % 100 mL (15 mg/mL) infusion 1,500 mgIntravenous Once Leon Anne MD vancomycin (Vancocin) 2,000 mg in sodium chloride 0.9 % 250 mL 2,000 mg Intravenous Once Leon Anne MD 147.5 mL/hr at 01/28/25 0917 2,000 mg at 01/28/25916 Cosigned by Leon Anne MD at 01/28/2025 9:58 AM EDT Associated attestation - Leon Anne MD - 01/28/2025 9:58 AM EDT I saw and evaluated the patient with the resident/fellow. I discussed the case with the resident/fellow and agree with the findings and plan as documented. documented in this encounter Plan of Treatment Upcoming Encounters Date Type Department Care Team (Late st Contact Info) Description 06/18/2025 12:40 PM EDT Office Visit Medical Office Building [facility] [address], [address] [place] [address] Leon Anne MD [address] [place] [address] 07/31/2025 12:20 PM EST Office Visit [facility] [address] [place] [address] Saroj Anderson MD [address] [place] [id number] Scheduled Referrals Name Type Priority Associated Diagnoses Order Schedule Discharge Ambulatory referral to [facility] Health Outpatient Referral Routine Arthritis of right knee 1 Occurrences starting 01/29/2025 until 08/01/2026 Discharge Ambulatory referral to Physical Therapy Outpatient Referral Routine Arthritis of right knee 1 Occurrences starting 01/29/2025 until 08/01/2026 documented as of this encounter Goals Goal Patient Goal Type Associated Problems Recent Progress Patient-Stated? Author Autogenerat ed Goal Care Plan Autogenerated Problem No Hrivnak, Kallie M documented as of this encounter Procedures Procedure Name Priority Date/Time Associated Diagnosis Comments POCT GLUCOSE METER UNSOLICITED RESULTS Routine 01/29/2025 11:37 AM EDT POCT GLUCOSE METER UNSOLICITED RESULTS Routine 01/29/2025 7:51 AM EDT CBC W/O DIFFERENTIAL Routine 01/29/2025 1:49 AM EDT BASIC METABOLIC PANEL, PLASMA Routine 01/29/2025 1:49 AM EDT POCT GLUCOSE METER UNSOLICITED RESULTS Routine 01/28/2025 9:05 PM EDT POCT GLUCOSE METER UNSOLICITED RESULTS Routine 01/28/2025 4:57 PM EDT XR KNEE RIGHT 1 OR 2 VIEWS Routine 01/28/2025 2:34 PM EDT POCT GLUCOSE METER UNSOLICITED RESULTS Routine 01/28/2025 2:10 PM EDT AR TOTAL KNEE ARTHROPLASTY 01/28/2025 11:27 AM EDT Unilateral primary osteoarthritis, right knee POCT GLUCOSE METER UNSOLICITED RESULTS Routine 01/28/2025 8:35 AM EDT documented in this encounter Results * (ABNORMAL) POCT glucose meter (01/29/2025 11:37 AM EDT) POCT Glucose 170(H) 74 - 99 mg/dL 01/29/2025 11:42 AM EDT [facility] Comment:Accuracy of a glucos e result obtained from a capillary whole blood specimen relies upon adequate, non-compromised capillary blood flow. If the capillary glucose result is not consistent with the patient's clinical signs and symptoms, glucose testing should be repeated with either an arterial or venous sample on the glucometer or sent to the main labortory for testing. Comment 01/29/2025 11:42 AM EDT [facility] Media Reporter ID Clementina Roth 11:42 AM EDT [facility]ALTH[facility]ARE [facility] Device ID [id number] 01/29/2025 11:42 AM EDT [facility] Specimen Type POC Capillary 01/29/2025 11:42 AM EDT [facility] Blood Capillary blood specimen / Unknown 01/29/2025 11:37 AM EDT 01/29/2025 11:42 AM EDT us Leon Anne MD LAB POINT OF CARE TE ST DOCKED DEVICE UNSOLICITED RESULTS Final Result Performing Organization Address City/[facility] Co de Phone Number [facility] [address] [place] [address] * (ABNORMAL) POCT glucose meter (01/29/2025 7:51 AM EDT) POCT Glucose 147(H) 74 - 99 mg/dL 01/29/2025 7:54 AM EDT [facility] Comment:Accuracy of a glucos e result obtained from a capillary whole blood specimen relies upon adequate, non-compromised capillary blood flow. If the capillary glucose result is not consistent with the patient's clinical signs and symptoms, glucose testing should be repeated with either an arterial or venous sample on the glucometer or sent to the main labortory for testing. Comment 01/29/2025 7:54 AM EDT [facility] Media Reporter ID Clementina Roth 7:54 AM EDT [facility] Device ID [id number] 01/29/2025 7:54 AM EDT [facility] Specimen Type POC Capillary 01/29/2025 7:54 AM EDT [facility] Blood Capillary blood specimen / Unknown 01/29/2025 7:51 AM EDT 01/29/2025 7:54 AM EDT us Leon Anne MD LAB POINT OF CARE TE ST DOCKED DEVICE UNSOLICITED RESULTS Final Result Performing Organization Address City/[facility] Co de Phone Number [facility] [address] [place] [address] * (ABNORMAL) Basic metabolic panel (01/29/2025 1:49 AM EDT) Glucose, Plasma 174(H) 74 - 99 mg/dL 01/29/2025 3:35 AM EDT [facility] BUN, Plasma 31(H) 8 - 23 mg/dL 01/29/2025 3:35 AM EDT [facility] Creatinine, Plasma 1.62(H) 0.70 - 1.20 mg/dL 01/29/2025 3:35 AM EDT [facility] BUN/Creatinine Ratio 19 01/29/2025 3:35 AM EDT [facility] Sodium, Plasma 139 136 - 145 mmol/L 01/29/2025 3:35 AM EDT [facility] Potassium, Plasma 4.0 3.6 - 4.9 mmol/L 01/29/2025 3:35 AM EDT [facility] Chloride, Plasma 102 97 - 107 mmol/L 01/29/2025 3:35 AM EDT [facility] CO2, Plasma 23 22 - 29 mmol/L 01/29/2025 3:35 AM EDT [facility] Anion Gap 14 6 - 16 mmol/L 01/29/2025 3:35 AM EDT [facility] Total Calcium, Plasma 8.5(L) 8.9 - 10.2 mg/dL 01/29/2025 3:35 AM EDT [facility] eGFRcr 44.3 mL/min/1.7 3m*2 01/29/2025 3:35 AM EDT [facility] Comment:Reported eGFRcr in m L/min/1.73m2 is based the CKD-EPI 2020 equation that does not use a race coefficient. Blood Venous blood specimen / Unknown Venipuncture / Unknown 01/29/2025 1:49 AM EDT 01/29/2025 3:06 AM EDT us Miranda Salamanca [employer] LAB BLOOD ORDERABLES Final Re sult [facility] [address] [place] [address] * (ABNORMAL) CBC (01/29/2025 1:49 AM EDT) WBC Count 10.61(H) 3.70 - 10.30 10*3/uL LAB HEMATOLOGY METHOD 01/29/2025 3:20 AM EDT [facility] RBC Count 3.41(L) 4.60 - 6.10 10*6/uL LAB HEMATOLOGY METHOD 01/29/2025 3:20 AM EDT [facility] HGB 9.8(L) 13.7 - 17.5 g/dL LAB HEMATOLOGY METHOD 01/29/2025 3:20 AM EDT [facility] HCT 30.5(L) 40.0 - 51.0 % LAB HEMATOLOGY METHOD 01/29/2025 3:20 AM EDT [facility] Platelet Count 292 155 - 369 10*3/uL LAB HEMATOLOGY METHOD 01/29/2025 3:20 AM EDT [facility] MCV 89 79 - 98 fL LAB HEMATOLOGY METHOD 01/29/2025 3:20 AM EDT [facility] MCH 28.7 26.0 - 32.0 pg LAB HEMATOLOGY METHOD 01/29/2025 3:20 AM EDT [facility] MCHC 32.1 30.7 - 35.5 g/dL LAB HEMATOLOGY METHOD 01/29/2025 3:20 AM EDT [facility] RDW 12.9 11.5 - 14.5 % LAB HEMATOLOGY METHOD 01/29/2025 3:20 AM EDT [facility] MPV 8.8 8.8 - 12.5 fL LAB HEMATOLOGY METHOD 01/29/2025 3:20 AM EDT [facility] nRBC 0.0 <=0.0 per 100 WBCs LAB HEMATOLOGY METHOD 01/29/2025 3:20 AM EDT [facility] Blood Venous blood specimen / Unknown Venipuncture / Unknown 01/29/2025 1:49 AM EDT 01/29/2025 3:12 AM EDT us Miranda Salamanca [employer] LAB BLOOD ORDERABLES Final Re sult [facility] [address] [place] [address] * (ABNORMAL) POCT glucose meter (01/28/2025 9:05 PM EDT) POCT Glucose 187(H) 74 - 99 mg/dL 01/28/2025 9:08 PM EDT [facility] Comment:Accuracy of a glucos e result obtained from a capillary whole blood specimen relies upon adequate, non-compromised capillary blood flow. If the capillary glucose result is not consistent with the patient's clinical signs and symptoms, glucose testing should be repeated with either an arterial or venous sample on the glucometer or sent to the main labortory for testing. Comment 01/28/2025 9:08 PM EDT [facility] Media Reporter ID Edith Astudillo 01/28/2025 9:08 PM EDT [facility] Device ID [id number] 01/28/2025 9:08 PM EDT [facility] Specimen Type POC Capillary 01/28/2025 9:08 PM EDT [facility] Blood Capillary blood specimen / Unknown 01/28/2025 9:05 PM EDT 01/28/2025 9:08 PM EDT us Leon Anne MD LAB POINT OF CARE TE ST DOCKED DEVICE UNSOLICITED RESULTS Final Result Performing Organization Address City/State/[facility] Co de Phone Number [facility] [address] [place] [address] * (ABNORMAL) POCT glucose meter (01/28/2025 4:57 PM EDT) [facility] POCT Glucose 162(H) 74 - 99 mg/dL 01/28/2025 5:00 PM EDT [facility] Comment:Accuracy of a glucos e result obtained from a capillary whole blood specimen relies upon adequate, non-compromised capillary blood flow. If the capillary glucose result is not consistent with the patient's clinical signs and symptoms, glucose testing should be repeated with either an arterial or venous sample on the glucometer or sent to the main labortory for testing. Comment 01/28/2025 5:00 PM EDT [facility] Media Reporter ID Tomas Arita 01/28/2025 5:00 PM EDT [facility] Device ID [id number] 01/28/2025 5:00 PM EDT [facility] Specimen Type POC Capillary 01/28/2025 5:00 PM EDT [facility] Blood Capillary blood specimen / Unknown 01/28/2025 4:57 PM EDT 01/28/2025 5:00 PM EDT us Leon Anne MD LAB POINT OF CARE TE ST DOCKED DEVICE UNSOLICITED RESULTS Final Result [facility] [address] [place] [address] * XR Knee Right 1 or 2 Views (01/28/2025 2:34 PM EDT) Anatomical Region Laterality Modality Lower Extremities, Knee Right Digital Radiography Impressions 01/28/2025 2:49 PM EDT Interval total knee arthroplasty in satisfactory alignment with no evidence of hardware failure and expected post surgical findings. CRITICAL RESULT: No. COMMUNICATION: Per this written report. Drafted by Nagi Stout on 01/28/2025 2:48 PM Final report signed by Nagi Stout on 01/28/2025 2:49 PM Narrative 01/28/2025 2:49 PM EDT CLINICAL INDICATION: TKA TECHNIQUE: XR KNEE RIGHT 1 OR 2 VIEWS COMPARISON: October 02, 2024 FINDINGS: Interval total knee arthroplasty in satisfactory alignment. No evidence of hardware failure. No newly visualized fractures. Subcutaneous gas and gas noted overlying the knee likely postoperative. Vascular calcifications. Procedure Note Nagi Stout MD - 01/28/2025 CLINICAL INDICATION: TKA TECHNIQUE: XR KNEE RIGHT 1 OR 2 VIEWS COMPARISON: October 02, 2024 FINDINGS: Interval total knee arthroplasty in satisfactory alignment. No evidence ofhardware failure. No newly visualized fractures. Subcutaneous gas and gasnoted overlying the knee likely postoperative. Vascular calcifications. IMPRESSION: Interval total knee arthroplasty in satisfactory alignment with noevidence of hardware failure and expected post surgical findings. CRITICAL RESULT: No. COMMUNICATION: Per this written report. Drafted by Nagi Stout on 01/28/2025 2:48 PM Final report signed by Nagi Stout on 01/28/2025 2:49 PM us Miranda Salamanca APRN IMG XR PROCEDURES Final Resul t * (ABNORMAL) POCT glucose meter (01/28/2025 2:10 PM EDT) POCT Glucose 179(H) 74 - 99 mg/dL 01/28/2025 2:11 PM EDT [facility] Comment:Accuracy of a glucos e result obtained from a capillary whole blood specimen relies upon adequate, non-compromised capillary blood flow. If the capillary glucose result is not consistent with the patient's clinical signs and symptoms, glucose testing should be repeated with either an arterial or venous sample on the glucometer or sent to the main labortory for testing. Comment 01/28/2025 2:11 PM EDT [facility] Media Reporter ID Zenaida Deal 01/29/20 2:11 PM EDT [facility] Device ID [id number] 01/28/2025 2:11 PM EDT [facility] Specimen Type POC Capillary 01/28/2025 2:11 PM EDT [facility] Blood Capillary blood specimen / Unknown 01/28/2025 2:10 PM EDT 01/28/2025 2:11 PM EDT us Leon Anne MD LAB POINT OF CARE TE ST DOCKED DEVICE UNSOLICITED RESULTS Final Result Performing Organization Address City/State/[facility] Co de Phone Number HEALTHCARE [facility] [address] [place] [address] * (ABNORMAL) POCT glucose meter (01/28/2025 8:35 AM EDT) [facility] POCT Glucose 150(H) 74 - 99 mg/dL 01/28/2025 8:36 AM EDT [facility] Comment:Accuracy of a glucos e result obtained from a capillary whole blood specimen relies upon adequate, non-compromised capillary blood flow. If the capillary glucose result is not consistent with the patient's clinical signs and symptoms, glucose testing should be repeated with either an arterial or venous sample on the glucometer or sent to the main labortory for testing. Comment 01/28/2025 8:36 AM EDT [facility] Media Reporter ID Karen Taveras 01/28/2025 8:36 AM EDT [facility] Device ID [id number] 01/28/2025 8:36 AM EDT [facility] Specimen Type POC Capillary 01/28/2025 8:36 AM EDT [facility] Blood Capillary blood specimen / Unknown 01/28/2025 8:35 AM EDT 01/28/2025 8:36 AM EDT us Leon Anne MD LAB POINT OF CARE TE ST DOCKED DEVICE UNSOLICITED RESULTS Final Result [facility] [address] [place] [address] documented in this encounter Visit Diagnoses Diagnosis Unilateral primary osteoarthritis, right knee- Primary Arthritis of right knee documented in this encounter Admitting Diagnoses Diagnosis Unilateral primary osteoarthritis, right knee Arthritis of right knee documented in this encounter Administered Medications Inactive Administered Medications - up to 3 most recent administrations Medication Order MAR Action Action Date Dose Rate Site acetaminophen (Tylenol) tablet 1,000 mg 1,000 mg, Oral, Once, 1 dose, On Sun01/28/25 at 0915, Routine, Holding - Preprocedure Given 01/28/2025 9:49 AM EDT 1,000 mg acetaminophen (Tylenol) tablet 1,000 mg 1,000 mg, Oral, Every 8 hours scheduled, First dose on Sun01/28/25 at 1800, Until Discontinued, Routine, Recovery(Phase II-Outpatient)/On Unit(Inpatient) Given 01/29/2025 1:52 PM EDT 1,000 mg Given 01/29/2025 5:06 AM EDT 1,000 mg Given 01/28/2025 5:30 PM EDT 1,000 mg aprepitant (Emend) capsule 40 mg 40 mg, Oral, Once, 1 dose, On Sun01/28/25 at 0915, Routine, Holding - Preprocedure Given 01/28/2025 9:49 AM EDT 40 mg aspirin chewable tablet 81 mg 81 mg, Oral, 2 times daily, First dose on Tiffanie 01/29/25 at 0900, Until Discontinued, Routine, Recovery(Phase II-Outpatient)/On Unit(Inpatient) Given 01/29/2025 8:50 AM EDT 81 mg bethanechol (Urecholine) tablet 20 mg 20 mg, Oral, Once as needed, 1 dose, Starting on Sun01/28/25 at 1548, Until Sun01/28/25 at 2233, Routine, Recovery(Phase II-Outpatient)/On Unit(Inpatient), other, post-op urinary retention Given 01/28/2025 10:33 PM EDT 20 mg bisacodyl (Dulcolax) suppository 10 mg 10 mg, Rectal, 2 times daily PRN, Starting on Sun01/28/25 at 1548, Until Tiffanie /8/25 at 1736, Routine, Recovery(Phase II-Outpatient)/On Unit(Inpatient), constipation, for constipation - use if no bowel movement after giving magnesium hydroxide calcium-vitamin D 500-200 MG-UNIT per tablet 1 tablet 1 tablet, Oral, 2 times daily with meals, First dose on Sun01/28/25 at 2100, Until Discontinued, Routine, Recovery(Phase II-Outpatient)/On Unit(Inpatient) Given 01/29/2025 8:50 AM EDT 1 tablet Given 01/28/2025 9:36 PM EDT 1 tablet ceFAZolin (Ancef) injection 3 g 3 g, Intravenous, Every 8 hours, 3 doses, First dose on Sun01/28/25 at 2000, Last dose on Sun01/29/25 at 1200, Routine, Recovery(Phase II-Outpatient)/On Unit(Inpatient) Given 01/29/2025 5:06 AM EDT 3 g Given 01/28/2025 9:44 PM EDT 3 g ceFAZolin (Ancef) injection 3 g 3 g, Intravenous, Once, 1 dose, On Sun01/29/25 at 1245, Routine, Recovery(Phase II-Outpatient)/On Unit(Inpatient) Given 01/29/2025 12:41 PM EDT 3 g dexamethasone (Decadron) injection 8 mg 8 mg, Intravenous, Once, 1 dose, On Sun01/28/25 at 0915, Routine, Holding - Preprocedure Given 01/28/2025 9:09 AM EDT 8 mg dextrose 50 % solution 12.5 g 12.5 g, Intravenous, Every 15 min PRN, Starting on Sun01/28/25 at 1415, Until Sun01/29/25 at 1736, Routine, low blood sugar diphenhydrAMINE (Benadryl) tablet 12.5 mg 12.5 mg, Oral, Every 4 hours PRN, Starting on Sun01/28/25 at 1548, Until Sun01/29/25 at 1736, Routine, Recovery(Phase II-Outpatient)/On Unit(Inpatient), itching, sleep famotidine PF (Pepcid) injection 20 mg 20 mg, Intravenous, Once, 1 dose, On Sun01/28/25 at 0915, Routine, Holding - Preprocedure Given 01/28/2025 9:09 AM EDT 20 mg fluconazole (Diflucan) tablet 100 mg 100 mg, Oral, Every 48 hours, 3 doses, First dose on Sun01/29/25 at 1200, Last dose on Sun02/02/25 at 1200, Routine Given 01/29/2025 12:27 PM EDT 100 mg gabapentin (Neurontin) capsule 100 mg 100 mg, Oral, Every 8 hours, First dose on Sun01/28/25 at 1645, Until Discontinued, Routine, Recovery(Phase II-Outpatient)/On Unit(Inpatient) Given 01/29/2025 8:49 AM EDT 100 mg Given 01/29/2025 12:28 AM EDT 100 mg gabapentin (Neurontin) capsule 300 mg 300 mg, Oral, Once, 1 dose, On Sun01/28/25 at 0915, Routine, Holding - Preprocedure Given 01/28/2025 9:49 AM EDT 300 mg glucagon (human recombinant) injection 1 mg 1 mg, Intramuscular, Every 15 min PRN, Starting on Sun01/28/25 at 1415, Until Sun01/29/25 at 1736, Routine, low blood sugar per Hypoglycemia Prevention and Treatment protocol glucose (Glutose) 40 % oral gel 15 grams of glucose 15 grams of glucose, Sublingual, Every 15 min PRN, Starting on Sun01/28/25 at 1415, Until Sun01/29/25 at 1736, Routine, low blood sugar, per Hypoglycemia Prevention and Treatment protocol HYDROmorphone (Dilaudid) injection 0.5 mg 0.5 mg, Intravenous, Every 6 hours PRN, Starting on Sun01/28/25 at 1548, Until Sun01/29/25 at 1736, Routine, Recovery(Phase II-Outpatient)/On Unit(Inpatient), severe pain, pain score 9-10 insulin lispro (Admelog) 100 units/mL injection - Correction - Standard Dose 0-5 Units, Subcutaneous, 3 times daily with meals, First dose on Sun01/28/25 at 1730, Until Discontinued, Routine Given 01/29/2025 12:28 PM EDT 1 Units Left Lower Abdomen insulin lispro (Admelog) injection - Correction - Nighttime Dose 0-3 Units, Subcutaneous, 2 times nightly (2100 & 0300), First dose on Sun01/28/25 at 2100, Until Discontinued, Routine ketorolac (Toradol) injection 15 mg 15 mg, Intravenous, Once, 1 dose, On Sun01/28/25 at 0915, Routine, Holding - Preprocedure Given 01/28/2025 9:02 AM EDT 15 mg lactated Ringer's infusion 100 mL/hr, Intravenous, Once, 1 dose, On Sun01/28/25 at 0915, Routine New Bag 01/28/2025 9:02 AM EDT 100 mL/hr 100 mL/hr lactated Ringer's infusion 50 mL/hr, Intravenous, Continuous, Starting on Sun01/28/25 at 1645, Until Tiffanie 01/29/25 at 0331, Routine New Bag 01/29/2025 1:51 AM EDT 50 mL/hr 50 mL/hr Continued from OR 01/28/2025 5:32 PM EDT 50 mL/hr 50 mL/ hr magnesium hydroxide (Milk of Magnesia) 400 MG/5ML suspension 30 mL 30 mL, Oral, 2 times daily PRN, Starting on Sun01/28/25 at 1548, Until Tiffanie 01/29/25 at 1736, Routine, Recovery(Phase II-Outpatient)/On Unit(Inpatient), constipation, for constipation - use as first line agent nystatin (Mycostatin) 177467 UNIT/GM powder 1 Application Topical, 2 times daily, First dose on Sun01/28/25 at 2100, Until Discontinued, Routine Given 01/29/2025 8:48 AM EDT 1 Application Given 01/28/2025 9:44 PM EDT 1 Application ondansetron (Zofran) injection 4 mg 4 mg, Intravenous, Every 6 hours PRN, Starting on Sun01/28/25 at 1548, Until Tiffanie 01/29/25 at 1736, Routine, Recovery(Phase II-Outpatient)/On Unit(Inpatient), nausea, vomiting oxyCODONE (Roxicodone) immediate release tablet 5 mg 5 mg, Oral, Once, 1 dose, On Sun01/28/25 at 0915, Routine, Holding - Preprocedure Given 01/28/2025 9:49 AM EDT 5 mg oxyCODONE (Roxicodone) immediate release tablet 5 mg 5 mg, Oral, Every 4 hours PRN, Starting on Sun01/28/25 at 1548, Until Sun01/29/25 at 1736, Routine, Recovery(Phase II-Outpatient)/On Unit(Inpatient), moderate pain, severe pain, Severe pain 5-8 Given 01/29/2025 12:28 PM EDT 5 mg Given 01/29/2025 1:48 AM EDT 5 mg pantoprazole (Protonix) EC tablet 40 mg 40 mg, Oral, Daily before breakfast, First dose on Sun01/28/25 at 1645, Until Discontinued, Routine, Recovery(Phase II-Outpatient)/On Unit(Inpatient) Given 01/29/2025 8:49 AM EDT 40 mg Given 01/28/2025 5:31 PM EDT 40 mg polyethylene glycol (Miralax) packet 17 g 17 g, Oral, Daily with breakfast, First dose on Sun01/29/25 at 0800, Until Discontinued, Routine, Recovery(Phase II-Outpatient)/On Unit(Inpatient) Given 01/29/2025 8:48 AM EDT 17 g Povidone-Iodine 5 % swab solution 1 Application Nasal, Once, 1 dose, On Sun01/28/25 at 0915, Routine Given 01/28/2025 9:54 AM EDT 1 Application pravastatin (Pravachol) tablet 20 mg 20 mg, Oral, Daily, First dose on Sun01/28/25 at 1630, Until Discontinued Given 01/29/2025 8:48 AM EDT 20 mg Given 01/28/2025 5:29 PM EDT 20 mg senna-docusate (Keri-Colace) 8.6-50 MG per tablet 2 tablet 2 tablet, Oral, Nightly, First dose on Sun01/28/25 at 2100, Until Discontinued, Routine, Recovery(Phase II-Outpatient)/On Unit(Inpatient) Given 01/28/2025 9:36 PM EDT 2 tablets tamsulosin (Flomax) 24 hr capsule 0.4 mg 0.4 mg, Oral, Daily, First dose (after last modification) on Sun01/28/25 at 1945, Until Discontinued, Routine Given 01/29/2025 8:49 AM EDT 0.4 mg Given 01/28/2025 9:36 PM EDT 0.4 mg traMADol (Ultram) tablet 100 mg 100 mg, Oral, Every 8 hours scheduled, First dose on Sun01/28/25 at 1645, Until Discontinued, Routine, Recovery(Phase II-Outpatient)/On Unit(Inpatient) Given 01/29/2025 1:52 PM EDT 100 mg Given 01/29/2025 5:06 AM EDT 100 mg Given 01/28/2025 9:35 PM EDT 100 mg traMADol (Ultram) tablet 50 mg 50 mg, Oral, Once, 1 dose, On Sun01/28/25 at 0915, Routine, Holding - Preprocedure Given 01/28/2025 9:49 AM EDT 50 mg traMADol (Ultram) tablet 50 mg 50 mg, Oral, Every 12 hours PRN, Starting on Sun01/28/25 at 1548, Until Tiffanie 01/29/25 at 1736, Routine, Recovery(Phase II-Outpatient)/On Unit(Inpatient), severe pain, pain score 3-5. use prior to oxycodone or hydromorphone tranexamic acid (Lysteda) tablet 650 mg 650 mg, Oral, 3 times daily, 9 doses, First dose on Tiffanie 01/29/25 at 0900, Last dose on 01/31/25 at 2100, Routine Given 01/29/2025 8:48 AM EDT 650 mg vancomycin (Vancocin) 2,000 mg in sodium chloride 0.9 % 250 mL 2,000 mg, Intravenous, Once, 1 dose, On Sun01/28/25 at 0915, at 147.5 mL/hr, STAT New Bag 01/28/2025 9:17 AM EDT 2,000 mg 147.5 mL/hr documented in this encounter Active and Recently Administered Medications Times are shown in EDT. Scheduled Medication Order 01/27/2025 01/28/2025 01/29/2025 acetaminophen (Tylenol) tablet 1,000 mg (COMPLETED) 1,000 mg, Oral, Once, 1 dose, On Sun01/28/25 at 0915, Routine, Holding - Preprocedure 0949 (Given - Provider: Lyn Elizalde RN) acetaminophen (Tylenol) tablet 1,000 mg 1,000 mg, Oral, Every 8 hours scheduled, First dose on Sun01/28/25 at 1800, Until Discontinued, Routine, Recovery(Phase II-Outpatient)/On Unit(Inpatient) 1730 (Given - Provider: Kayla Chou RN) 0506 (Given - Provider: Tessie Herrera)1352 (Given - Provider: Chay Zhou RN) aprepitant (Emend) capsule 40 mg (COMPLETED) 40 mg, Oral, Once, 1 dose, On Sun01/28/25 at 0915, Routine, Holding - Preprocedure 0949 (Given - Provider: Lyn Elizalde RN) aspirin chewable tablet 81 mg 81 mg, Oral, 2 times daily, First dose on Tiffanie 01/29/25 at 0900, Until Discontinued, Routine, Recovery(Phase II-Outpatient)/On Unit(Inpatient) 0850 (Given - Provid er: Chay Zhou RN) calcium-vitamin D 500-200 MG-UNIT per tablet 1 tablet 1 tablet, Oral, 2 times daily with meals, First dose on Sun01/28/25 at 2100, Until Discontinued, Routine, Recovery(Phase II-Outpatient)/On Unit(Inpatient) 2136 (Given - Provider: Tessie Herrera) 0850 (Given - Provider: Chay Zhou RN)1730 (Canceled Entry - Provider: Automatic Discharge Provider - Comment: Automatically canceled at discontinue of medication order) ceFAZolin (Ancef) injection 3 g (COMPLETED) 3 g, Intravenous, Once, 1 dose, On Sun01/28/25 at 0915, Routine, Anesthesia Intraprocedure 1200 (Given - Provider: Ja Alexandre CRNA) ceFAZolin (Ancef) injection 3 g 3 g, Intravenous, Every 8 hours, 3 doses, First dose on Sun01/28/25 at 2000, Last dose on Sun01/29/25 at 1200, Routine, Recovery(Phase II-Outpatient)/On Unit(Inpatient) 2144 (Given - Provider: Tessie Herrera) 0506 (Given - Provider: Tessie Herrera)1241 (Not Given - Provider: Chay Zhou RN - Reason: See Provider Order) ceFAZolin (Ancef) injection 3 g (COMPLETED) 3 g, Intravenous, Once, 1 dose, On Tiffanie 01/29/25 at 1245, Routine, Recovery(Phase II-Outpatient)/On Unit(Inpatient) 1241 (Given - Provid er: Chay Zhou RN) dexamethasone (Decadron) injection 8 mg (COMPLETED) 8 mg, Intravenous, Once, 1 dose, On Sun01/28/25 at 0915, Routine, Holding - Preprocedure 0909 (Given - Provider: Lyn Elizalde RN) famotidine PF (Pepcid) injection 20 mg (COMPLETED) 20 mg, Intravenous, Once, 1 dose, On Sun01/28/25 at 0915, Routine, Holding - Preprocedure 0909 (Given - Provider: Lyn Elizalde RN) fluconazole (Diflucan) tablet 100 mg 100 mg, Oral, Every 48 hours, 3 doses, First dose on Tiffanie 01/29/25 at 1200, Last dose on 02/02/25 at 1200, Routine 1227 (Given - Provid er: Chay Zhou RN) gabapentin (Neurontin) capsule 100 mg 100 mg, Oral, Every 8 hours, First dose on Sun01/28/25 at 1645, Until Discontinued, Routine, Recovery(Phase II-Outpatient)/On Unit(Inpatient) 1715 (Not Given - Provider: Kayla Chou RN - Reason: Hold for condition: must add comment - Comment: sleepy) 0028 (Given - Provider: Tessie Herrera)0849 (Given - Provider: Chay Zhou RN)1645 (Canceled Entry - Provider: Automatic Discharge Provider - Comment: Automatically canceled at discontinue of medication order) gabapentin (Neurontin) capsule 300 mg (COMPLETED) 300 mg, Oral, Once, 1 dose, On Sun01/28/25 at 0915, Routine, Holding - Preprocedure 0949 (Given - Provider: Lyn Elizalde RN) insulin lispro (Admelog) 100 units/mL injection - Correction - Standard Dose 0-5 Units, Subcutaneous, 3 times daily with meals, First dose on Sun01/28/25 at 1730, Until Discontinued, Routine 1731 (Not Given - Provider: Kayla Chou RN - Reason: Patient/family refused) 0844 (Not Given - Provider: Chay Zhou RN - Reason: See Provider Order)1228 (Given - Provider: Chay Zhou RN)1730 (Canceled Entry - Provider: Automatic Discharge Provider - Comment: Automatically canceled at discontinue of medication order) insulin lispro (Admelog) injection - Correction - Nighttime Dose 0-3 Units, Subcutaneous, 2 times nightly (2100 & 0300), First dose on Sun01/28/25 at 2100, Until Discontinued, Routine 2135 (Not Given - Provider: Tessie Herrera - Reason: Order parameters not met - Comment: 187) 221 (Not Given - Provider: Tessie Herrera - Reason: Order parameters not met - Comment: BS 187) ketorolac (Toradol) injection 15 mg (COMPLETED) 15 mg, Intravenous, Once, 1 dose, On Sun01/28/25 at 0915, Routine, Holding - Preprocedure 0902 (Given - Provider: Lyn Elizalde RN) lactated Ringer's infusion (COMPLETED) 100 mL/hr, Intravenous, Once, 1 dose, On Sun01/28/25 at 0915, Routine 09 (New Bag - Provider: Lyn Elizalde RN) nystatin (Mycostatin) [id number] UNIT/GM powder 1 Application Topical, 2 times daily, First dose on Sun01/28/25 at 2100, Until Discontinued, Routine 2143 (Given - Provider: Tessie Herrera) 0848 (Given - Provider: Chay Zhou RN) oxyCODONE (Roxicodone) immediate release tablet 5 mg (COMPLETED) 5 mg, Oral, Once, 1 dose, On Sun01/28/25 at 0915, Routine, Holding - Preprocedure 0949 (Given - Provider: Lyn Elizalde RN) pantoprazole (Protonix) EC tablet 40 mg 40 mg, Oral, Daily before breakfast, First dose on Sun01/28/25 at 1645, Until Discontinued, Routine, Recovery(Phase II-Outpatient)/On Unit(Inpatient) 1731 (Given - Provider: Kayla Chou RN) 0849 (Given - Provider: Chay Zhou RN) polyethylene glycol (Miralax) packet 17 g 17 g, Oral, Daily with breakfast, First dose on Sun01/29/25 at 0800, Until Discontinued, Routine, Recovery(Phase II-Outpatient)/On Unit(Inpatient) 0848 (Given - Provid er: Chay Zhou RN) Povidone-Iodine 5 % swab solution 1 Application (COMPLETED) Nasal, Once, 1 dose, On Sun01/28/25 at 0915, Routine 0954 (Given - Provider: Lyn Elizalde RN) pravastatin (Pravachol) tablet 20 mg 20 mg, Oral, Daily, First dose on Sun01/28/25 at 1630, Until Discontinued 1729 (Given - Provider: Kayla Chou RN) 0848 (Given - Provider: Chay Zhou RN) senna-docusate (Keri-Colace) 8.6-50 MG per tablet 2 tablet 2 tablet, Oral, Nightly, First dose on Sun01/28/25 at 2100, Until Discontinued, Routine, Recovery(Phase II-Outpatient)/On Unit(Inpatient) 2135 (Given - Provider: Tessie Herrera) tamsulosin (Flomax) 24 hr capsule 0.4 mg 0.4 mg, Oral, Daily, First dose (after last modification) on Sun01/28/25 at 1945, Until Discontinued, Routine 2135 (Given - Provider: Tessie Herrera) 0849 (Given - Provider: Chay Zhou RN) traMADol (Ultram) tablet 100 mg 100 mg, Oral, Every 8 hours scheduled, First dose on Sun01/28/25 at 1645, Until Discontinued, Routine, Recovery(Phase II-Outpatient)/On Unit(Inpatient) 1730 (Not Given - Provider: Kayla Chou RN - Reason: Hold for condition: must add comment - Comment: sleepy)2134 (Given - Provider: Tessie Herrera) 0506 (Given - Provider: Tessie Herrera)1352 (Given - Provider: Chay Zhou RN) traMADol (Ultram) tablet 50 mg (COMPLETED) 50 mg, Oral, Once, 1 dose, On Sun01/28/25 at 0915, Routine, Holding - Preprocedure 0949 (Given - Provider: Lyn Elizalde RN) tranexamic acid (Cyklokapron) 1,500 mg in sodium chloride 0.9 % 100 mL (15 mg/mL) infusion (COMPLETED) 1,500 mg, Intravenous, Once, 1 dose, On Sun01/28/25 at 0915, Routine, Holding - Preprocedure 1200 (New Bag - Provider: Ja Alexandre CRNA) tranexamic acid (Cyklokapron) 1,500 mg in sodium chloride 0.9 % 100 mL (15 mg/mL) infusion (COMPLETED) 1,500 mg, Intravenous, Once, 1 dose, On Sun01/28/25 at 0915, Routine, Holding - Preprocedure 1324 (New Bag - Provider: Ja Alexandre CRNA) tranexamic acid (Lysteda) tablet 650 mg 650 mg, Oral, 3 times daily, 9 doses, First dose on Tiffanie 01/29/25 at 0900, Last dose on 01/31/25 at 2100, Routine 0848 (Given - Provid er: Chay Zhou RN)1600 (Canceled Entry - Provider: Automatic Discharge Provider - Comment: Automatically canceled at discontinue of medication order) vancomycin (Vancocin) 2,000 mg in sodium chloride 0.9 % 250 mL (COMPLETED) 2,000 mg, Intravenous, Once, 1 dose, On Sun01/28/25 at 0915, at 147.5 mL/hr, STAT 0917 (New Bag - Provider: Lyn Elizalde RN) Continuous Medication Order 01/27/2025 01/28/2025 01/29/2025 lactated Ringer's infusion 50 mL/hr, Intravenous, Continuous, Starting on Sun01/28/25 at 1645, Until Tiffanie 01/29/25 at 0331, Routine 1732 (Continued from OR - Provider: Kayla Chou, FELISA) 0151 (New Bag - Provider: Damon Quick, FELISA) PRN Medication Order 01/27/2025 01/28/2025 01/29/2025 bethanechol (Urecholine) tablet 20 mg (COMPLETED) 20 mg, Oral, Once as needed, 1 dose, Starting on Sun01/28/25 at 1548, Until 01/28/25 at 2233, Routine, Recovery(Phase II-Outpatient)/On Unit(Inpatient), other, post-op urinary retention 223 (Given - Provider: Tessie Herrera) bisacodyl (Dulcolax) suppository 10 mg 10 mg, Rectal, 2 times daily PRN, Starting on 01/28/25 at 1548, Until Tiffanie 01/29/25 at 1736, Routine, Recovery(Phase II-Outpatient)/On Unit(Inpatient), constipation, for constipation - use if no bowel movement after giving magnesium hydroxide bupivacaine-EPINEPHrine PF (Marcaine w/EPI) 0.5% -[id number] injection (CANCELED) As needed, Starting on Sun01/28/25 at 1215, Until Sun01/28/25 at 1402, Routine, Intraprocedure 1215 (Given - Provider: Leon Anne MD) dextrose 50 % solution 12.5 g(Linked Group 1) 12.5 g, Intravenous, Every 15 min PRN, Starting on Sun01/28/25 at 1415, Until Tiffanie 01/29/25 at 1736, Routine, low blood sugar diphenhydrAMINE (Benadryl) tablet 12.5 mg 12.5 mg, Oral, Every 4 hours PRN, Starting on Sun01/28/25 at 1548, Until Tiffanie 01/29/25 at 1736, Routine, Recovery(Phase II-Outpatient)/On Unit(Inpatient), itching, sleep glucagon (human recombinant) injection 1 mg(Linked Group 1) 1 mg, Intramuscular, Every 15 min PRN, Starting on Sun01/28/25 at 1415, Until Tiffanie 01/29/25 at 1736, Routine, low blood sugar per Hypoglycemia Prevention and Treatment protocol glucose (Glutose) 40 % oral gel 15 grams of glucose(Linked Group 1) 15 grams of glucose, Sublingual, Every 15 min PRN, Starting on Sun01/28/25 at 1415, Until Tiffanie 01/29/25 at 1736, Routine, low blood sugar, per Hypoglycemia Prevention and Treatment protocol HYDROmorphone (Dilaudid) injection 0.5 mg 0.5 mg, Intravenous, Every 6 hours PRN, Starting on Sun01/28/25 at 1548, Until Tiffanie 01/29/25 at 1736, Routine, Recovery(Phase II-Outpatient)/On Unit(Inpatient), severe pain, pain score 9-10 magnesium hydroxide (Milk of Magnesia) 400 MG/5ML suspension 30 mL 30 mL, Oral, 2 times daily PRN, Starting on Sun01/28/25 at 1548, Until Tiffanie 01/29/25 at 1736, Routine, Recovery(Phase II-Outpatient)/On Unit(Inpatient), constipation, for constipation - use as first line agent ondansetron (Zofran) injection 4 mg 4 mg, Intravenous, Every 6 hours PRN, Starting on Sun01/28/25 at 1548, Until Tiffanie 01/29/25 at 1736, Routine, Recovery(Phase II-Outpatient)/On Unit(Inpatient), nausea, vomiting oxyCODONE (Roxicodone) immediate release tablet 5 mg 5 mg, Oral, Every 4 hours PRN, Starting on Sun01/28/25 at 1548, Until Tiffanie 01/29/25 at 1736, Routine, Recovery(Phase II-Outpatient)/On Unit(Inpatient), moderate pain, severe pain, Severe pain 5-8 0148 (Given - Provid er: Damon Quick RN)0850 (Not Given - Provider: Chay Zhou RN - Reason: Patient/family refused)1228 (Given - Provider: Chay Zhou RN) traMADol (Ultram) tablet 50 mg 50 mg, Oral, Every 12 hours PRN, Starting on Sun01/28/25 at 1548, Until Tiffanie 01/29/25 at 1736, Routine, Recovery(Phase II-Outpatient)/On Unit(Inpatient), severe pain, pain score 3-5. use prior to oxycodone or hydromorphone vancomycin (Vancocin) vial for injection (CANCELED) As needed, Starting on Sun01/28/25 at 1215, Until Sun01/28/25 at 1402, Routine, Intraprocedure 1215 (Given - Provider: Leon Anne MD) Linked Groups Order Group 1: glucose (Glutose) 40 % oral gel 15 grams of glucoseJump to med 15 grams of glucose, Sublingual, Every 15 min PRN, Starting on Sun01/28/25 at 1415, Until Tiffanie 01/29/25 at 1736, Routine, low blood sugar, per Hypoglycemia Prevention and Treatment protocol Or dextrose 50 % solution 12.5 gJump to med 12.5 g, Intravenous, Every 15 min PRN, Starting on Sun01/28/25 at 1415, Until Tiffanie 01/29/25 at 1736, Routine, low blood sugar Or glucagon (human recombinant) injection 1 mgJump to med 1 mg, Intramuscular, Every 15 min PRN, Starting on Sun01/28/25 at 1415, Until Tiffanie 01/29/25 at 1736, Routine, low blood sugar per Hypoglycemia Prevention and Treatment protocol documented in this encounter Additional Health Concerns Active Problems Noted Date Diagnosed Date Autogenerated Problem 01/21/2025 Assessment Noted Time PHQ-9 Depression Total Score: 0 10/02/19 1:29 PM EST A fall risk assessment has been complete d for the patient 12/12/2024 12:15 PM EDT A Body Mass Index follow-up plan has been documented for the patient 01/29/2025 2:10 PM EDT documented as of this encounter Care Teams Speech Correction Assistant Relationship Specialty Start Date End Date Nader Fields MD [facility] [address] [place] [address] PCP - General 06/16/24 documented as of this encounter
--- OUTSIDE RECORDS SUMMARY | 2025-01-28 07:52 | XMS_ITS | Encounter Summary ---
Author Organization [facility] Address [address] [place] [address] Care Team Providers Care Shrinker Name Role Phone Nader Fields MD Primary Care Provider [phone] Reason for Referral * Consultation (Routine) - Authorized Specialty Diagnoses / Procedures Referred By Jean post Referred To Contact Physical Therapy Diagnoses Arthritis of right knee Miranda Salamanca APRN [address] [place] [phone] Phone: tel: fax: Referral ID Status Reason Start Date Expiration Date Visits Requested Visits Authorized [id number] Authorized Consult and Treat 01/29/2025 07/31/2026 1 1 * Home Health (Routine) - Authorized Specialty Diagnoses / Procedures Referred By Jean post Referred To Contact Home Health Services Diagnoses Arthritis of right knee Leon Anne MD [address] [place] [address] Phone: tel: fax: Referral ID Status Reason Start Date Expiration Date Visits Requested Visits Authorized [id number] Authorized Specialty Services Required 01/29/2025 07/31/2026 999 999 Reason for Visit * Auth/Cert (Routine) Specialty Diagnoses / Procedures Referred By Jean post Referred To Contact Diagnoses Unilateral primary osteoarthritis, right knee Unilateral primary osteoarthritis, right knee [M17.11] Procedures NJ TOTAL KNEE ARTHROPLASTY NJ CPTR-ASST SURGICAL NAVIGATION IMAGE-LESS ARTHROPLASTY, KNEE, TOTAL, USING COMPUTER-ASSISTED NAVIGATION Leon Anne MD [address] [place] [phone] Phone: tel: fax: P[facility] S Operating Room [address] [place] [address] Phone: tel: Referral ID Status Reason Start Date Expiration Date Visits Re quested Visits Authorized [id number] 1 1 Encounter Details Date Type Department Care Team (Latest Contact Info) Description 01/28/2025 7:52 AM EDT - 01/29/2025 3:31 PM EDT Hospital Encounter [facility] S Inpatient [address] [place] [address] Leon Anne MD [address] [place] [phone] Arthritis of right knee (Primary Dx) [...] any time in the past 12 m [facility], were you homeless or living in a residential (including now)? No 02/03/2025 Utilities Answer Date [...] PM Tracy Isaac Feeling tired or having awyne le energy Not at all 10/02/2024 1:29 PM Tracy Isaac Poor appetite or overeating Not at all [...] symptoms continue 1 each 01/29/2025 nystatin (Mycostatin) 272456 UNIT/GM powder Apply to skin folds twice [...] PCP name and Address: Nader Fields MD [address] [place] [address] [address] [place] [address] Referring provider name and address: No referring provider defined for this encounter. Chief Concern, Brief History of Present Illness, and Hospital Course Patient arrived to [facility] on 01/28/25 for their scheduled surgery. Patient [...] with home health therapy set up with [facility] agency . Surgeries and Procedures ARTHROPLASTY, KNEE, [...] in other nostril if symptoms continue nystatin 634842 UNIT/GM powder Commonly known as: Mycostatin Apply [...] Your Medications These medications were sent to [facility] [place] [address] [address] [place] [id number] acetaminophen 500 MG tablet aspirin 81 MG EC tablet cefadroxil 500 MG capsule docusate sodium 250 MG capsule fluconazole 100 MG tablet gabapentin 100 MG capsule naloxone 4 mg/0.1 mL nasal spray nystatin 033717 UNIT/GM powder oxyCODONE 5 MG immediate release [...] 02/12/2025 10:20 AM Liya Soto PA [facility] 03/17/2025 11:30 AM Leon Anne MD [facility] 07/10/2025 11:00 AM Saroj Anderson MD [...] with questions orconcerns. TERRANCE Reilly-C Division of [facility] Medicine Secure chat preferred * Progress Notes - Bianca Hassan RN - 01/29/2025 11:45 AM EDT Case Management Adult Progress Note Preet Montoya 74 y.o. male CSN: [id number] Admission: 01/28/2025 7:52 AM Primary Problem: Unilateral [...] in Care Family/Caregiver Present: Yes Family/Caregiver: Spouse Milking Machine Technician: Not Applicable Presentation Oxygen Therapy: None (Room [...] Level of Mobility: Ambulatory- household only Mobility Sap[place]: Assistance with gait with device History of [...] Mobility Bed Mobility Exam: Scooting/Bridging Level of Sapello: Minimum assist (75% patient's effort) Physical/Nonphysical Assist: Verbal Cues, Supervision Assistive Device: Bed rails Bed Mobility Exam: Supine to Sit Level of Sapello: Minimum assist (75% patient's effort) Physical/Nonphysical Assist: Supervision, Verbal Cues Assistive Device: Bed rails Transfers Transfer Exam: Sit to stand Level of Sapello: Stand-by assist Physical/Nonphysical Assist: Supervision, Verbal Cues Assistive Device: Walker, rolling Transfer Exam: Stand to Sit Level of Sapello: Stand-by assist Physical/Nonphysical Assist: Supervision, Verbal Cues [...] provided. Standardized Assessments Standardized Assessments Standardized Assessments: [facility] 6-Clicks Mobility Assessment [facility] 6-Clicks Mobility Assessment Difficulty patient has turning [...] 3-5 steps with a railing?: A lot [facility] 6-Clicks Mobility Assessment Total : 17 Assessment [...] in Care Family/Caregiver Present: Yes Family/Caregiver: Spouse Milking Machine Technician: Not Applicable Presentation Oxygen Therapy: None (Room [...] Level of Mobility: Ambulatory- household only Mobility Sapello: Assistance with gait with device History of [...] Mobility Bed Mobility Exam: Scooting/Bridging Level of Sapello: Minimum assist (75% patient's effort) Physical/Nonphysical Assist: Verbal Cues, Supervision Assistive Device: Bed rails Bed Mobility Exam: Supine to Sit Level of Sapello: Minimum assist (75% patient's effort) Physical/Nonphysical Assist: Supervision, Verbal Cues Assistive Device: Bed rails Transfers Transfer Exam: Sit to stand Level of Sapello: Contact guard Physical/Nonphysical Assist: Supervision, Verbal Cues Assistive Device: Walker, rolling Transfer Exam: Stand to Sit Level of Sapello: Contact guard Physical/Nonphysical Assist: Supervision, Verbal Cues Assistive Device: Walker, rolling Transfer Exam: Bed to Chair/Chair to Bed Level of Sapello: Contact guard Physical/Nonphysical Assist: Supervision, Verbal Cues [...] Follow up: Liya Soto on 02/12 at [facility], Orthopaedic Surgery [address] [place] [address], [address], [place] [address], Harley Waggoner MD Orthopaedic Surgery PGY-2 [facility] Personal Pager: [phone] Orthopaedic Trauma Service Pager: [phone] Orthopaedic Recon/Spine/Foot and Ankle Service Pager: [phone] Cosigned by Leon Anne MD at 01/29/2025 [...] Abnormal Ventricular Rate 84 Atrial Rate 84 NJ Interval 258 QRSD Interval 112 QT Interval 374 QTC Interval 441 P [place] 61 R [place] 23 T Wave [place] 0 Diagnosis Sinus rhythm with 1st degree AV block Diagnosis Incomplete right bundle branch block Diagnosis Borderline ECG Diagnosis Diagnosis Confirmed by Trey Marcelino ([id number]) on 12/17/2024 1:50:00 PM *Note: Due to [...] from the original note were not included. [address]5110 After Knee Replacement: Using a Walker Following [...] after your physical or occupational therapist or electrical engineer has shown you the correct procedures, you [...] leg. Last Reviewed Date: 2024 00:00:00 ?? 2811-5921 [employer]. All rights reserved. This information is not intended as a substitute for professional medical care. Always follow your healthcare professional's instructions. * Ricardo Sumnerbushra N, RN - 01/28/2025 3:10 PM EDT Images from the original note were not included. 09314 Preventing Deep Vein Thrombosis After Surgery In [...] blood clots. Move your feet in a false pass or up and down. Do this 10 [...] bleeding Last Reviewed Date: 2022 00:00:00 ?? 2744-5210 [employer]. All rights reserved. This information is not intended as a substitute for professional medical care. Always follow your healthcare professional's instructions. * Kristin OnFHIR - Blanche Busch RN - 01/28/2025 3:10 PM EDT Images from the original note were not included. 46689 Using an Incentive Spirometer An incentive spirometer [...] rate Last Reviewed Date: 2024 00:00:00 ?? 8941-2750 [employer]. All rights reserved. This information is not intended as a substitute for professional medical care. Always follow your healthcare professional's instructions. * Kristin OnLEXIS - Blanche Busch RN - 01/28/2025 3:10 PM EDT Images from the original note were not included. 49373 Preventing a Surgical Site Infection A risk [...] of infection. ?? Controlled body temperature. A xdink-zjwx-bthvqy temperature during or after surgery prevents oxygen [...] and water or with an alcohol-based hand sander and buffer before and after caring for you. Don?t [...] away. Last Reviewed Date: 2024 00:00:00 ?? 3251-2640 [employer]. All rights reserved. This information is not [...] medicines unless your doctor approves. This includes gdci-ekn-iqtgqkk medicines like aspirin, ibuprofen and Tylenol. ?? [...] a nutritional supplement such as Boost or [place] Instant Breakfast until your appetite returns to [...] ?? If you have problems sleeping, take vwnl-yyv-spimwad diphenhydramine (Benadryl) or melatonin. ?? If you [...] prescription refill before your next appointment, call [phone]. Call 2 business days before you run [...] PM EDT Operative Note Date: 01/28/25 Location: [facility] OR Name: Preet Montoya, : 1950, SURGEON: Leon Anne M.D. [employer]SEMBLER [employer] #1: Harley Das MD as there was no qualified resident available [employer] #2: Harley Waggoner MD PREOPERATIVE DIAGNOSIS: Advanced degenerative joint disease secondary to osteoarthritis of the Right Knee Morbid Obesity POSTOPERATIVE DIAGNOSIS: same PROCEDURE: Right Total Knee Arthroplasty Computer Assisted Navigation of Right Total Knee Arthroplasty, Imageless IMPLANTS: Mechanical Shovel Operator: [employer]eiros [employer]hew Brand: Journey 2.0 Tibial [...] future surgeryincluding the potential for amputation, DVT, MS, stroke, and . The patient completed preoperative [...] distal femoral cut was performed using the [employer] Imageless Navigation. The pin was placed to the distal femur and the navigation unit was then attached. The alignment was set at 3.5o for flexion and for 1 varus to the mechanical axis of the leg. The distal femoral cutting block was then pinned to the distal femur and we performed the cut. The proximal tibia was cut using the [employer] Imageless Navigation. The cutting guide was placed [...] Marginal osteophytes were removed and a lamina nuclear technologist was utilized with the knee in 90?? [...] no qualified resident for this case. Harley aDs MD who has operative credentials at the [facility]. His assistance was needed for exposure, retraction, [...] surgery Harley Waggoner MD Orthopaedic Surgery PGY-2 [facility] [1] Family History Problem Relation Name Age [...] Leon Anne MD 147.5 mL/hr at 01/28/25 09 2,000 mg at 01/28/25916 Cosigned by Leon [...] Care Team (Late st Contact Info) Description 03/25/2025 8:30 AM EDT Office Visit [facility] [address] [facility], 2nd [place] [address] Vince Neumann MD [address] [facility] [address] [place] [id number] 06/18/2025 12:40 PM EDT Office Visit Medical Office Building Surgery Spine & Joint [address] [facility], [address] [place] [address] Leon Anne MD [address] [facility] [address] [place] [address] 07/31/2025 12:20 PM EST Office Visit [facility] [address] [place] [address] Saroj Anderson MD [address] [place] [phone] Scheduled Referrals Name Type Priority Associated Diagnoses Order Schedule Discharge Ambulatory referral to NON [facility] Health Outpatient Referral Routine Arthritis of right knee 1 Occurrences starting 01/29/2025 until 08/01/2026 Discharge Ambulatory referral to Physical Therapy Outpatient Referral Routine Arthritis of right knee 1 Occurrences starting 01/29/2025 until 08/01/2026 documented as of this encounter Goals Goal Patient Goal Type Associated Problems Recent Progress Patient-Stated? Author Autogenerat ed Goal Care Plan Autogenerated Problem No Kallie Villa documented as of this encounter Procedures Procedure [...] UNSOLICITED RESULTS Routine 01/28/2025 2:10 PM EDT NJ TOTAL KNEE ARTHROPLASTY 01/28/2025 11:27 AM EDT Unilateral primary osteoarthritis, right knee POCT GLUCOSE METER UNSOLICITED RESULTS Routine 01/28/2025 8:35 AM EDT documented in this encounter Results * (ABNORMAL) POCT glucose meter (01/29/2025 11:37 AM EDT) POCT Glucose 170(H) 74 - 99 mg/dL 01/29/2025 11:42 AM EDT [facility] Comment:Accuracy of a glucos e result [...] for testing. Comment 01/29/2025 11:42 AM EDT [facility]ARE [facility] Sales Attendant ID Clementina Roth 11:42 AM EDT [facility]ALTHCARE LAB Device ID [id number] 01/29/2025 11:42 AM EDT [facility]ALTH[facility]ARE LAB Specimen Type POC Capillary 01/29/2025 11:42 AM EDT [facility]ARE [facility] Blood Capillary blood specimen / Unknown 01/29/2025 11:37 AM EDT 01/29/2025 11:42 AM EDT Leon Anne MD LAB POINT OF CARE TE ST DOCKED DEVICE UNSOLICITED RESULTS Final Result Performing Organization Address City/State/[facility] Co de Phone Number HEALTHCARE LAB [address] [place] [address] * (ABNORMAL) POCT glucose meter (01/29/2025 7:51 AM EDT) POCT Glucose 147(H) 74 - 99 mg/dL 01/29/2025 7:54 AM EDT [facility] Comment:Accuracy of a [...] Comment 01/29/2025 7:54 AM EDT [facility]ALTHCARE LAB Sales Attendant ID Clementina Roth 7:54 AM EDT [facility]ALTH[facility]ARE [facility] Device ID [id number] 01/29/2025 7:54 AM EDT [facility]ARE [facility] Specimen Type POC Capillary 01/29/2025 7:54 AM EDT [facility]ARE [facility] Blood Capillary blood specimen / Unknown 01/29/2025 7:51 AM EDT 01/29/2025 7:54 AM EDT us Leon Anne MD LAB POINT OF CARE TE ST DOCKED DEVICE UNSOLICITED RESULTS Final Result [facility] [address] [place] [address] * (ABNORMAL) Basic metabolic panel (01/29/2025 1:49 AM EDT) Glucose, Plasma 174(H) 74 - 99 mg/dL 01/29/2025 3:35 AM EDT [facility] BUN, Plasma 31(H) 8 - 23 mg/dL 01/29/2025 3:35 AM EDT [facility] Creatinine, Plasma 1.62(H) 0.70 - 1.20 mg/dL 01/29/2025 3:35 AM EDT [facility] BUN/Creatinine Ratio 19 01/29/2025 3:35 AM EDT [facility] Sodium, Plasma 139 136 - 145 mmol/L 01/29/2025 3:35 AM EDT [facility] Potassium, Plasma 4.0 3.6 - 4.9 mmol/L 01/29/2025 3:35 AM EDT [facility] Chloride, Plasma 102 97 - 107 mmol/L 01/29/2025 3:35 AM EDT [facility] CO2, Plasma 23 22 - 29 mmol/L 01/29/2025 3:35 AM EDT [facility] Anion Gap 14 6 - 16 mmol/L 01/29/2025 3:35 AM EDT [facility] Total Calcium, Plasma 8.5(L) 8.9 - 10.2 mg/dL 01/29/2025 3:35 AM EDT [facility] eGFRcr 44.3 mL/min/1.7 3m*2 01/29/2025 3:35 AM EDT [facility] Comment:Reported eGFRcr in m L/min/1.73m2 is based the CKD-EPI 2020 equation that does not use a race coefficient. Blood Venous blood specimen / Unknown Venipuncture / Unknown 01/29/2025 1:49 AM EDT 01/29/2025 3:06 AM EDT us Miranda Salamanca APRN LAB BLOOD ORDERABLES Final Re sult [facility] [address] [place] [address] * (ABNORMAL) CBC (01/29/2025 1:49 AM EDT) WBC Count 10.61(H) 3.70 - 10.30 10*3/uL LAB HEMATOLOGY METHOD 01/29/2025 3:20 AM EDT [facility] RBC Count 3.41(L) 4.60 - 6.10 10*6/uL LAB HEMATOLOGY METHOD 01/29/2025 3:20 AM EDT [facility] HGB 9.8(L) 13.7 - 17.5 g/dL LAB HEMATOLOGY METHOD 01/29/2025 3:20 AM EDT [facility] HCT 30.5(L) 40.0 - 51.0 % LAB HEMATOLOGY METHOD 01/29/2025 3:20 AM EDT [facility] Platelet Count 292 155 - 369 10*3/uL LAB HEMATOLOGY METHOD 01/29/2025 3:20 AM EDT [facility] MCV 89 79 - 98 fL LAB HEMATOLOGY METHOD 01/29/2025 3:20 AM EDT [facility] MCH 28.7 26.0 - 32.0 pg LAB HEMATOLOGY METHOD 01/29/2025 3:20 AM EDT [facility] MCHC 32.1 30.7 - 35.5 g/dL LAB HEMATOLOGY METHOD 01/29/2025 3:20 AM EDT [facility] RDW 12.9 11.5 - 14.5 % LAB HEMATOLOGY METHOD 01/29/2025 3:20 AM EDT [facility] MPV 8.8 8.8 - 12.5 fL LAB HEMATOLOGY METHOD 01/29/2025 3:20 AM EDT [facility] nRBC 0.0 <=0.0 per 100 WBCs LAB HEMATOLOGY METHOD 01/29/2025 3:20 AM EDT [facility] Blood Venous blood specimen / Unknown Venipuncture / Unknown 01/29/2025 1:49 AM EDT 01/29/2025 3:12 AM EDT us Miranda Salamanca FAGOTER LAB BLOOD ORDERABLES Final Re sult [facility] [address] [place] [address] * (ABNORMAL) POCT glucose meter (01/28/2025 9:05 PM EDT) [facility] POCT Glucose 187(H) 74 - 99 mg/dL [...] Comment 01/28/2025 9:08 PM EDT [facility]ALTHCARE LAB Sales Attendant ID Edith Astudillo 01/28/2025 9:08 PM EDT [facility]ARE LAB Device ID [id number] 01/28/2025 9:08 PM EDT [facility]ARE [facility] Specimen Type POC Capillary 01/28/2025 9:08 PM EDT [facility] Blood Capillary blood specimen / Unknown 01/28/2025 9:05 PM EDT 01/28/2025 9:08 PM EDT Leon Anne MD LAB POINT OF CARE TE ST DOCKED DEVICE UNSOLICITED RESULTS Final Result [facility] [address] [place] [address] * (ABNORMAL) POCT glucose meter (01/28/2025 4:57 PM EDT) [facility] POCT Glucose 162(H) 74 - 99 mg/dL 01/28/2025 5:00 PM EDT [facility] Comment:Accuracy of a [...] Comment 01/28/2025 5:00 PM EDT [facility]ALTH[facility]ARE LAB Sales Attendant ID Juan J Tomas 01/28/2025 5:00 PM EDT HE[facility]ARE LAB Device ID [id number] 01/28/2025 5:00 PM EDT [facility]ARE LAB Specimen Type POC Capillary 01/28/2025 5:00 PM EDT [facility] Blood Capillary blood specimen / Unknown 01/28/2025 4:57 PM EDT 01/28/2025 5:00 PM EDT us Leon Anne MD LAB POINT OF CARE TE ST DOCKED DEVICE UNSOLICITED RESULTS Final Result Performing Organization Address City/State/[facility] Co de Phone Number HEALTHCARE LAB [address] [place] [address] * XR Knee Right 1 or 2 [...] by Nagi Stout on 01/28/2025 2:49 PM Mirnada Salamanca FAGOTER IMG XR PROCEDURES Final Resul t * (ABNORMAL) POCT glucose meter (01/28/2025 2:10 PM EDT) Pathologist [facility] POCT Glucose 179(H) 74 - 99 mg/dL 01/28/2025 2:11 PM EDT [facility]ARE [facility] Comment:Accuracy of a [...] Comment 01/28/2025 2:11 PM EDT [facility]ALTH[facility]ARE LAB Sales Attendant ID Zenaida Deal 01/29/20 2:11 PM EDT HEALTH[facility]ARE LAB Device ID [id number] 01/28/2025 2:11 PM EDT [facility]ARE LAB Specimen Type POC Capillary 01/28/2025 2:11 PM EDT [facility] Blood Capillary blood specimen / Unknown 01/28/2025 2:10 PM EDT 01/28/2025 2:11 PM EDT Leon Anne MD LAB POINT OF CARE TE ST DOCKED DEVICE UNSOLICITED RESULTS Final Result Performing Organization Address City/State/[facility] Co de Phone Number [facility] [address] [place] [address] * (ABNORMAL) POCT glucose meter (01/28/2025 8:35 AM EDT) [facility] POCT Glucose 150(H) 74 - 99 mg/dL 01/28/2025 8:36 AM EDT [facility] Comment:Accuracy of [...] Comment 01/28/2025 8:36 AM EDT HEALTHCARE LAB Sales Attendant ID Karen Taveras 01/28/2025 8:36 AM EDT HEALTH[facility]ARE LAB Device ID [id number] 01/28/2025 8:36 AM EDT [facility]ARE [facility] Specimen Type POC Capillary 01/28/2025 8:36 AM EDT [facility] Blood Capillary blood specimen / Unknown 01/28/2025 8:35 AM EDT 01/28/2025 8:36 AM EDT Leon Anne MD LAB POINT OF CARE TE ST DOCKED DEVICE UNSOLICITED RESULTS Final Result [facility] [address] [place] [address] documented in this encounter Visit Diagnoses Diagnosis [...] Oral, 2 times daily, First dose on Sun01/29/25 at 0900, Until Discontinued, Routine, Recovery(Phase II-Outpatient)/On [...] 01/29/25 at 1245, Routine, Recovery(Phase II-Outpatient)/On Unit(Inpatient) Given [...] use as first line agent nystatin (Mycostatin) 298588 UNIT/GM powder 1 Application Topical, 2 times [...] 2100, Until Discontinued, Routine, Recovery(Phase II-Outpatient)/On Unit(Inpatient) 213 (Given - Provider: Tessie Herrera) 0850 (Given [...] on Sun01/28/25 at 2000, Last dose on Tiffanie 01/29/25 at 1200, Routine, Recovery(Phase II-Outpatient)/On Unit(Inpatient) 2144 (Given - Provider: Tessie Herrera) 0506 (Given - Provider: Tessie Herrera)1241 (Not Given - Provider: Chay Zhou RN - Reason: See Provider Order) ceFAZolin (Ancef) injection 3 g (COMPLETED) 3 g, Intravenous, Once, 1 dose, On Sun01/29/25 at 1245, Routine, Recovery(Phase II-Outpatient)/On Unit(Inpatient) 1241 (Given - Provid er: Chay Zhou RN) dexamethasone (Decadron) injection 8 mg (COMPLETED) 8 mg, Intravenous, Once, 1 dose, On Sun01/28/25 at 0915, Routine, Holding - Preprocedure 0909 (Given - Provider: Lyn Elizalde, FELISA) famotidine PF (Pepcid) injection 20 mg (COMPLETED) 20 mg, Intravenous, Once, 1 dose, On Sun01/28/25 at 0915, Routine, Holding - Preprocedure 0909 (Given - Provider: Lyn Elizalde RN) fluconazole (Diflucan) tablet 100 mg 100 mg, Oral, Every 48 hours, 3 doses, First dose on Sun01/29/25 at 1200, Last dose on 02/02/25 at [...] See Provider Order)1228 (Given - Provider: Chay hZou RN)1730 (Canceled Entry - Provider: Automatic Discharge [...] - Provider: Lyn Elizalde RN) nystatin (Mycostatin) 746055 UNIT/GM powder 1 Application Topical, 2 times [...] Chou RN) 0849 (Given - Provider: Chay hZou RN) polyethylene glycol (Miralax) packet 17 g [...] dose on Sun01/28/25 at 1630, Until Discontinued 172 (Given - Provider: Kayla Chou RN) 0848 [...] 1732 (Continued from OR - Provider: Kayla Chou RN) 0151 (New Bag - Provider: Damon Quick RN) PRN Medication Order 01/27/2025 01/28/2025 01/29/2025 bethanechol (Urecholine) tablet 20 mg (COMPLETED) 20 mg, Oral, Once as needed, 1 dose, Starting on Sun01/28/25 at 1548, Until Sun01/28/25 at 2233, Routine, Recovery(Phase II-Outpatient)/On Unit(Inpatient), other, post-op urinary retention 2233 (Given - Provider: Tessie Herrera) bisacodyl (Dulcolax) suppository 10 mg 10 mg, Rectal, 2 times daily PRN, Starting on Sun01/28/25 at 1548, Until Tiffanie 01/29/25 at 1736, Routine, Recovery(Phase II-Outpatient)/On Unit(Inpatient), constipation, for constipation - use if no bowel movement after giving magnesium hydroxide bupivacaine-EPINEPHrine PF (Marcaine w/EPI) 0.5% -1:[id number] injection (CANCELED) As needed, Starting on Sun01/28/25 [...] documented as of this encounter Care Teams Shrinker Relationship Specialty Start Date End Date Nader Fields MD [address] [place] [address] [address] [place] [address] PCP - General 06/16/24 documented as of this encounter
--- OUTSIDE RECORDS SUMMARY | 2025-01-28 11:00 | XMS_ITS | Encounter Summary ---
Author Organization [facility] Address [address] [place] [address] Care Team Providers Care Blending Machine Feeder Name Role Phone Nader Fields MD Primary Care Provider Reason for Visit * Auth/Cert (Routine) Specialty Diagnoses / Procedures Referred By Jean post Referred To Contact Diagnoses Unilateral primary osteoarthritis, right knee Unilateral primary osteoarthritis, right knee [M17.11] Procedures HI TOTAL KNEE ARTHROPLASTY HI CPTR-ASST SURGICAL NAVIGATION IMAGE-LESS ARTHROPLASTY, KNEE, TOTAL, USING COMPUTER-ASSISTED NAVIGATION Leon Anne MD [address] [place] [phone] Phone: tel: fax: [facility] Operating Room [address] [place] [address] Phone: tel: Referral ID Status Reason Start Date Expiration Date Visits Re quested Visits Authorized [id number] 1 1 Encounter Details Date Type Department Care Team (Late st Contact Info) Description 01/28/2025 11:00 AM EDT - 01/28/2025 1:30 PM EDT Surgery [facility] Operating Room [address] [place] [phone] Leon Anne MD [address] [place] [phone] ARTHROPLASTY, KNEE, TOTAL, USING COMPUTER-ASSISTED NAVIGATION [64425 (CPT )] Surgery Details Date/Time Status Location OR Service Patient Class Case Class Case Type Trauma Case? 01/28/2025 11:00 AM Posted [facility] 01 Orthopedic Surgery Extended Recovery E-Electi ve Panel 1 Procedure [facility]RB Anes Op Region Wound Class Comments ARTHROPLASTY, KNEE, TOTAL, U SING COMPUTER-ASSISTED NAVIGATION Right Choice Knee Class I/ Dada an Surgeon Surgeon Role Service Panel Leon Anne MD Primary Orthopedic Surgery 1 Harley Das MD Assisting Orthopedic Surgery 1 Harley Waggoner MD Assisting 1 documented in this encounter Social History Tobacco Use Types Packs/Day Years Used Date Smoking Tobacco: Never Smokeless Tobacco: Never Alcohol Use Standard Drinks/Week Comments Never 0 (1 standard drink = 0.6 oz pur e alcohol) PHQ-2 Answer Date Recorded Patient Health Questionnaire-2 Score 0 12/12/2024 PHQ-9 Answer Date Recorded Patient Health Questionnaire-9 Score 0 10/02/2024 Sex and Gender Information Value Date Recorded Sex Assigned at Not on file Legal Sex Male 10:03 AM EDT Gender Identity Not on file Sexual Orientation Not on file documented as of this encounter Last Filed Vital Signs Vital Sign Reading Time Taken Comments Blood Pressure 154/96 01/28/2025 8:35 AM EDT Pulse 96 01/28/2025 8:35 AM EDT Temperature 36.6 C (97.9 F) 01/28/2025 8:35 AM EDT Respiratory Rate 16 01/28/2025 8:35 AM EDT Oxygen Saturation 94% 01/28/2025 8:35 AM EDT Inhaled Oxygen Concentration - - Weight - - Height 180.3 cm (5' 11 ) 01/28/2025 8:35 AM EDT Body Mass Index - - documented in this encounter Functional Status * [...] Date of Assessment Author No Risk Indicated 01/28/2025 8:35 AM EDDeidre Chase RN * If you checked off any problems on this questionnaire so far, Question Answer Date of Assessment Author How difficult have these problems made it for you to do your work, take care of things at home, or get along with other people? Not difficult at all 12/12/2024 12:15 PM EDKarla Hawk * Question Answer Date of Assessment Author 1. Wish to be (Past 1 Month) No 025 8:35 AM Lyn Bryant, RN 2. Non-Specific Active Suici fatuma Thoughts (Past 1 Month) No 01/28/2025 8:35 AM EDT Lyn Elizalde , RN 6. Suicidal Behavior (Lifetime) No 8:35 AM EDT Lyn Elizalde RN documented as of this encounter Discharge [...] symptoms continue 1 each 01/29/2025 nystatin (Mycostatin) 155762 UNIT/GM powder Apply to skin folds twice [...] needed for severe pain. 50 tablet 01/28/2025 5 tamsulosin (Flomax) 0.4 MG 24 hr capsule [...] morning and 1 Application before bedtime. 07/29/2024 5 documented as of this encounter Miscellaneous Notes * Discharge Summary - Miranda Salamanca APRN - 01/29/2025 1:53 PM EDT Hospitalization Admit Date/Time: 01/28/2025 7:52 AM Admitting Attending: Leon Anne Discharge Date: 01/29/2025 Discharge Attending Physician: Leon Anne MD PCP name and Address: Nader Fields MD [address] [place] [address] [address] / [place] [address] Referring provider name and address: No referring provider defined for this encounter. Chief Concern, Brief History of Present Illness, and Hospital Course [facility] their scheduled surgery. Patient [...] with home health therapy set up with [facility] . Surgeries and Procedures ARTHROPLASTY, KNEE, TOTAL, [...] in other nostril if symptoms continue nystatin 138716 UNIT/GM powder Commonly known as: Mycostatin Apply [...] Your Medications These medications were sent to [facility] [place] [address] acetaminophen 500 MG tablet aspirin 81 MG EC tablet cefadroxil 500 MG capsule docusate sodium 250 MG capsule fluconazole 100 MG tablet gabapentin 100 MG capsule naloxone 4 mg/0.1 mL nasal spray nystatin 247357 UNIT/GM powder oxyCODONE 5 MG immediate release [...] 02/12/2025 10:20 AM Liya Soto PA [facility] 03/17/2025 11:30 AM Leon Anne MD [facility]TH[facility]MO[facility] 07/10/2025 11:00 AM Saroj Anderson MD [facility] [place] Test Results Pending At Discharge Pertinent Physical Exam At Time of Discharge Physical Exam Incision closed with dermabond prineo. Gab wrap in place and clean,dry, intact. Motor/sensation intact. Discharge Disposition/Condition Disposition: Home with home health therapy- [facility] agency Condition: Stable (s/sx potential problems absent [...] with questions orconcerns. TERRANCE Reilly-C Division of [facility] Medicine Secure chat preferred * Progress Notes - Bianca Hassan RN - 01/29/2025 11:45 AM EDT Case Management Adult Progress Note Preet Montoya 74 y.o. male CSN: [id number] Admission: 01/28/2025 7:52 AM Primary Problem: Unilateral primary osteoarthritis, right knee Anticipated Discharge Date: PT/OT: home with assist, HH PT/OT services. [...] in Care Family/Caregiver Present: Yes Family/Caregiver: Spouse Bender Hand: Not Applicable Presentation Oxygen Therapy: None (Room [...] Level of Mobility: Ambulatory- household only Mobility [place]: Assistance with gait with device History of [...] Mobility Bed Mobility Exam: Scooting/Bridging Level of [place]: Minimum assist (75% patient's effort) Physical/Nonphysical Assist: Verbal Cues, Supervision Assistive Device: Bed rails Bed Mobility Exam: Supine to Sit Level of [place]: Minimum assist (75% patient's effort) Physical/Nonphysical Assist: Supervision, Verbal Cues Assistive Device: Bed rails Transfers Transfer Exam: Sit to stand Level of [place]: Stand-by assist Physical/Nonphysical Assist: Supervision, Verbal Cues Assistive Device: Walker, rolling Transfer Exam: Stand to Sit Level of [place]ock[place]: Stand-by assist Physical/Nonphysical Assist: Supervision, Verbal Cues [...] provided. Standardized Assessments Standardized Assessments Standardized Assessments: [facility] 6-Clicks Mobility Assessment AMPA 6-Clicks Mobility Assessment Difficulty patient has turning [...] 3-5 steps with a railing?: A lot [facility] 6-Clicks Mobility Assessment Total : 17 Assessment [...] has a past medical history of Diabetes ([facility]/HCC), GERD (gastroesophageal reflux disease), HLD (hyperlipidemia), and HTN (hypertension). Past Surgical History Patient has a past surgical history that includes knee arthroscopy (Right). Precautions Right Lower Extremity Weight Bearing Status: Weight Bearing as Tolerated Medical Precautions: Fall precautions Subjective Pt agreeable to OT eval. Participants in Care Family/Caregiver Present: Yes Family/Caregiver: Spouse Bender Hand: Not Applicable Presentation Oxygen Therapy: None (Room [...] Level of Mobility: Ambulatory- household only Mobility [place]: Assistance with gait with device History of [...] Mobility Bed Mobility Exam: Scooting/Bridging Level of [place]ock[place]: Minimum assist (75% patient's effort) Physical/Nonphysical Assist: Verbal Cues, Supervision Assistive Device: Bed rails Bed Mobility Exam: Supine to Sit Level of [place]ock[place]: Minimum assist (75% patient's effort) Physical/Nonphysical Assist: Supervision, Verbal Cues Assistive Device: Bed rails Transfers Transfer Exam: Sit to stand Level of [place]ock[place]: Contact guard Physical/Nonphysical Assist: Supervision, Verbal Cues Assistive Device: Walker, rolling Transfer Exam: Stand to Sit Level of [place]ock[place]: Contact guard Physical/Nonphysical Assist: Supervision, Verbal Cues Assistive Device: Walker, rolling Transfer Exam: Bed to Chair/Chair to Bed Level of [place]ock[place]: Contact guard Physical/Nonphysical Assist: Supervision, Verbal Cues [...] Follow up: Liya Soto on 02/12 at [facility], Orthopaedic Surgery [address] [place] [address], [address], [place] [address], Harley Waggoner MD Orthopaedic Surgery PGY-2 [facility] Personal Pager: [phone] Orthopaedic Trauma Service Pager: [phone] Orthopaedic Recon/Spine/Foot and Ankle Service Pager: [phone] Cosigned by Leon Anne MD at 01/29/2025 [...] 14:05 Pulse 85 01/28/25 15:43 Resp 18 05/07/25 15:43 SpO2 92% 01/28/25 15:43 Vitals shown [...] 3:36 PM EDTAssociated Order(s): Inpatient consult to Hospitaljames Victor Inpatient consult to Ata Victor Consult [...] Abnormal Ventricular Rate 84 Atrial Rate 84 HI Interval 258 QRSD Interval 112 QT Interval 374 QTC Interval 441 P Esmond 61 R Esmond 23 T Wave Esmond 0 Diagnosis Sinus rhythm with 1st degree AV block Diagnosis Incomplete right bundle branch block Diagnosis Borderline ECG Diagnosis Diagnosis Confirmed by Trey Marcelino ([id number]) on 12/17/2024 1:50:00 PM *Note: Due to [...] Pleasecontact the MGS consult DIANN 7A-7P or GS night DIANN 7P-7A with questions or concerns. JASPER ReillyC Division of Hospital Medicine Secure chat preferred [...] skin changes color ?? Burning feeling * [facility] Blanche Busch, RN - 01/28/2025 3:10 PM EDT Images from the original note were not included. 22232 After Knee Replacement: Using a Walker Following [...] after your physical or occupational therapist or meteorological equipment repairer has shown you the correct procedures, you [...] leg. Last Reviewed Date: 2024 00:00:00 ?? [id number] [employer]. All rights reserved. This information is not intended as a substitute for professional medical care. Always follow your healthcare professional's instructions. * Kristin [facility] - Blanche Busch RN - 01/28/2025 3:10 PM EDT Images from the original note were not included. 93341 Preventing Deep Vein Thrombosis After Surgery In [...] blood clots. Move your feet in a [place] or up and down. Do this [...] bleeding Last Reviewed Date: 2022 00:00:00 ?? [id number] [employer]. All rights reserved. This information is not intended as a substitute for professional medical care. Always follow your healthcare professional's instructions. * Kristin [facility] - Blanche Busch RN - 01/28/2025 3:10 PM EDT Images from the original note were not included. 02169 Using an Incentive Spirometer An incentive spirometer [...] rate Last Reviewed Date: 2024 00:00:00 ?? 9015-2908 [employer]. All rights reserved. This information is not intended as a substitute for professional medical care. Always follow your healthcare professional's instructions. * Kristin [facility] - Blanche Busch RN - 01/28/2025 3:10 PM EDT Images from the original note were not included. 57662 Preventing a Surgical Site Infection A risk [...] of infection. ?? Controlled body temperature. A hyriw-lmyp-csbzcx temperature during or after surgery prevents oxygen [...] and water or with an alcohol-based hand mineral ore processing labourer before and after caring for you. Don?t [...] away. Last Reviewed Date: 2024 00:00:00 ?? 5260-0136 [employer]. All rights reserved. This information is not intended as a substitute for professional medical care. Always follow your healthcare professional's instructions. * [facility] Blanche Busch RN - 01/28/2025 3:10 [...] medicines unless your doctor approves. This includes liyv-yoo-qkubjmc medicines like aspirin, ibuprofen and Tylenol. ?? [...] a nutritional supplement such as Boost or Barnard Instant Breakfast until your appetite returns to [...] ?? If you have problems sleeping, take vqir-ugg-bleqtam diphenhydramine (Benadryl) or melatonin. ?? If you [...] prescription refill before your next appointment, call [phone]. Call 2 business days before you run out. ?? To check joint stability over time, you may have X-rays every five years. When should I call the doctor? Call 601 right away if you have any of [...] PM EDT Operative Note Date: 01/28/25 Location: [facility] OR Name: Preet Montoya, : 1950, SURGEON: Leon Anne M.D. CLINICAL NURSING INTERN #1: Harley Das MD as there was no qualified resident available CLINICAL NURSING INTERN #2: Harley Waggoner MD PREOPERATIVE DIAGNOSIS: Advanced degenerative joint disease secondary to osteoarthritis of the Right Knee Morbid Obesity POSTOPERATIVE DIAGNOSIS: same PROCEDURE: Right Total Knee Arthroplasty Computer Assisted Navigation of Right Total Knee Arthroplasty, Imageless IMPLANTS: Director Of Food And Nutrition Services: [employer] Brand: Journey 2.0 Tibial [...] future surgeryincluding the potential for amputation, DVT, DC, stroke, and . The patient completed preoperative [...] distal femoral cut was performed using the SonoPlot Imageless Navigation. The pin was placed to the distal femur and the navigation unit was then attached. The alignment was set at 3.5o for flexion and for 1 varus to the mechanical axis of the leg. The distal femoral cutting block was then pinned to the distal femur and we performed the cut. The proximal tibia was cut using the SonoPlot Imageless Navigation. The cutting guide was placed [...] was set to be 90 degrees to [place]'s lineand parallel to the transepicondylar axis. The 4-1 cutting guide was placed and the cuts were performed. The following releases were required to balance the knee: deep MCL, PCL, posterior capsule. Marginal osteophytes were removed and a lamina supervisor floor assembly was utilized with the knee in 90?? [...] MD who has operative credentials at the [facility]. His assistance was needed for exposure, retraction, [...] surgery Harley Waggoner MD Orthopaedic Surgery PGY-2 [facility] [1] Family History Problem Relation Name Age [...] mL/hr at 01/28/25 0917 2,000 mg at 01/28/25 0917 Cosigned by Leon Anne MD at 01/28/2025 [...] Building Surgery Spine & Joint [address], [address] [place] [address] Leon Anne MD [address] [facility] [address] [place] [address] 07/31/2025 12:20 PM EST Office Visit [facility] [address] [place] [address] Saroj Anderson MD [address] [place] [phone] Scheduled Referrals Name Type Priority Associated Diagnoses Order Schedule Discharge Ambulatory referral to [facility] Outpatient Referral Routine Arthritis of right knee [...] UNSOLICITED RESULTS Routine 01/28/2025 2:10 PM EDT HI TOTAL KNEE ARTHROPLASTY 01/28/2025 11:27 AM EDT Unilateral primary osteoarthritis, right knee POCT GLUCOSE METER UNSOLICITED RESULTS Routine 01/28/2025 8:35 AM EDT documented in this encounter Results * (ABNORMAL) POCT glucose meter (01/29/2025 11:37 AM EDT) POCT Glucose 170(H) 74 - 99 mg/dL 01/29/2025 11:42 AM EDT [facility] Comment:Accuracy of a [...] Comment 01/29/2025 11:42 AM EDT [facility] Shield Cleaner ID Clementina Roth 11:42 AM EDT [facility] Device ID [id number] 01/29/2025 11:42 AM EDT [facility] Specimen Type POC Capillary 01/29/2025 11:42 AM EDT [facility] Blood Capillary blood specimen / Unknown 01/29/2025 11:37 AM EDT 01/29/2025 11:42 AM EDT Leon Anne MD LAB POINT OF CARE TE ST DOCKED DEVICE UNSOLICITED RESULTS Final Result Performing Organization Address City/[facility]/ZIP Co de Phone Number [facility] [address] [place] [address] * (ABNORMAL) POCT glucose meter (01/29/2025 7:51 AM EDT) [facility] POCT Glucose 147(H) 74 - 99 mg/dL [...] Comment 01/29/2025 7:54 AM EDT [facility] Shield Cleaner ID Clementina Roth 7:54 AM EDT [facility] Device ID [id number] 01/29/2025 7:54 AM EDT [facility] Specimen Type POC Capillary 01/29/2025 7:54 AM EDT [facility] Blood Capillary blood specimen / Unknown 01/29/2025 7:51 AM EDT 01/29/2025 7:54 AM EDT Leon Anne MD LAB POINT OF CARE TE ST DOCKED DEVICE UNSOLICITED RESULTS Final Result Performing Organization Address City/[facility]/ZIP Co de Phone Number [facility] [address] [place] [address] * (ABNORMAL) Basic metabolic panel (01/29/2025 1:49 AM EDT) Pathologist [facility] Glucose, Plasma 174(H) 74 - 99 mg/dL 01/29/2025 3:35 AM EDT [facility] BUN, Plasma 31(H) 8 - 23 mg/dL 01/29/2025 3:35 AM EDT [facility] Creatinine, Plasma 1.62(H) 0.70 - 1.20 mg/dL 01/29/2025 3:35 AM EDT [facility] BUN/Creatinine Ratio 19 01/29/2025 3:35 AM EDT [facility] Sodium, Plasma 139 136 - 145 mmol/L 01/29/2025 3:35 AM EDT [facility] Potassium, Plasma 4.0 3.6 - 4.9 mmol/L 01/29/2025 3:35 AM EDT [facility] Chloride, Plasma 102 97 - 107 mmol/L 01/29/2025 3:35 AM EDT [facility] CO2, Plasma 23 22 - 29 mmol/L 01/29/2025 3:35 AM EDT [facility] Anion Gap 14 6 - 16 mmol/L 01/29/2025 3:35 AM EDT [facility] Total Calcium, Plasma 8.5(L) 8.9 - 10.2 mg/dL 01/29/2025 3:35 AM EDT [facility] eGFRcr 44.3 mL/min/1.7 3m*2 01/29/2025 3:35 AM EDT [facility] Comment:Reported eGFRcr in m L/min/1.73m2 is based the CKD-EPI 2020 equation that does not use a race coefficient. Blood Venous blood specimen / Unknown Venipuncture / Unknown 01/29/2025 1:49 AM EDT 01/29/2025 3:06 AM EDT us Miranda Salamanca ENVIRONMENTAL ENGINEERING AIDE LAB BLOOD ORDERABLES Final Re sult [facility] [address] [place] [id number] * (ABNORMAL) CBC (01/29/2025 1:49 AM EDT) WBC Count 10.61(H) 3.70 - 10.30 10*3/uL LAB HEMATOLOGY METHOD 01/29/2025 3:20 AM EDT [facility] RBC Count 3.41(L) 4.60 - 6.10 10*6/uL LAB HEMATOLOGY METHOD 01/29/2025 3:20 AM EDT [facility] HGB 9.8(L) 13.7 - 17.5 g/dL LAB HEMATOLOGY METHOD 01/29/2025 3:20 AM EDT [facility] HCT 30.5(L) 40.0 - 51.0 % LAB HEMATOLOGY METHOD 01/29/2025 3:20 AM EDT [facility] Platelet Count 292 155 - 369 10*3/uL LAB HEMATOLOGY METHOD 01/29/2025 3:20 AM EDT [facility] MCV 89 79 - 98 fL LAB HEMATOLOGY METHOD 01/29/2025 3:20 AM EDT [facility] MCH 28.7 26.0 - 32.0 pg LAB HEMATOLOGY METHOD 01/29/2025 3:20 AM EDT [facility] MCHC 32.1 30.7 - 35.5 g/dL LAB HEMATOLOGY METHOD 01/29/2025 3:20 AM EDT [facility] RDW 12.9 11.5 - 14.5 % LAB HEMATOLOGY METHOD 01/29/2025 3:20 AM EDT [facility] MPV 8.8 8.8 - 12.5 fL LAB HEMATOLOGY METHOD 01/29/2025 3:20 AM EDT [facility] nRBC 0.0 <=0.0 per 100 WBCs LAB HEMATOLOGY METHOD 01/29/2025 3:20 AM EDT [facility] Blood Venous blood specimen / Unknown Venipuncture / Unknown 01/29/2025 1:49 AM EDT 01/29/2025 3:12 AM EDT us Miranda Salamanca ENVIRONMENTAL ENGINEERING AIDE LAB BLOOD ORDERABLES Final Re sult [facility] [address] [place] [address] * (ABNORMAL) POCT glucose meter (01/28/2025 9:05 [...] Comment 01/28/2025 9:08 PM EDT [facility] Shield Cleaner CHRISTINE Edith Astudillo 01/28/2025 9:08 PM EDT [facility] Device ID [id number] 01/28/2025 9:08 PM EDT [facility] Specimen Type POC Capillary 01/28/2025 9:08 PM EDT [facility] Blood Capillary blood specimen / Unknown 01/28/2025 9:05 PM EDT 01/28/2025 9:08 PM EDT Leon Anne MD LAB POINT OF CARE TE ST DOCKED DEVICE UNSOLICITED RESULTS Final Result Performing Organization Address [facility] Co de Phone Number [facility] [address] [place] [address] * (ABNORMAL) POCT glucose meter (01/28/2025 4:57 PM EDT) [facility] POCT Glucose 162(H) 74 - 99 [...] for testing. Comment 01/28/2025 5:00 PM EDT [facility] Shield Cleaner ID Tomas Arita 01/28/2025 5:00 PM EDT [facility] Device ID [id number] 01/28/2025 5:00 PM EDT [facility] Specimen Type POC Capillary 01/28/2025 5:00 PM EDT [facility] Blood Capillary blood specimen / Unknown 01/28/2025 4:57 PM EDT 01/28/2025 5:00 PM EDT Leon Anne MD LAB POINT OF CARE TE ST DOCKED DEVICE UNSOLICITED RESULTS Final Result Performing Organization Address City/[facility]/ZIP Co de Phone Number [facility] [address] [place] [address] * XR Knee Right 1 or 2 [...] by Nagi Stout on 01/28/2025 2:49 PM Miranda Salamanca ENVIRONMENTAL ENGINEERING AIDE IMG XR PROCEDURES Final Resul t * (ABNORMAL) POCT glucose meter (01/28/2025 2:10 PM EDT) POCT Glucose 179(H) 74 - 99 mg/dL 01/28/2025 2:11 PM EDT [facility] Comment:Accuracy of [...] for testing. Comment 01/28/2025 2:11 PM EDT [facility] Shield Cleaner ID Zenaida Deal 01/29/20 2:11 PM EDT [facility] Device ID [id number] 01/28/2025 2:11 PM EDT [facility] Specimen Type POC Capillary 01/28/2025 2:11 PM EDT [facility] Blood Capillary blood specimen / Unknown 01/28/2025 2:10 PM EDT 01/28/2025 2:11 PM EDT Leon Anne MD LAB POINT OF CARE TE ST DOCKED DEVICE UNSOLICITED RESULTS Final Result Performing Organization Address [facility] Co de Phone Number [facility] [address] [place] [address] * (ABNORMAL) POCT glucose meter (01/28/2025 8:35 AM EDT) [facility] POCT Glucose 150(H) 74 - 99 [...] Comment 01/28/2025 8:36 AM EDT [facility] Shield Cleaner ID Karen Taveras 01/28/2025 8:36 AM EDT [facility] Device ID [id number] 01/28/2025 8:36 AM EDT [facility] Specimen Type POC Capillary 01/28/2025 8:36 AM EDT [facility] Blood Capillary blood specimen / Unknown 01/28/2025 8:35 AM EDT 01/28/2025 8:36 AM EDT Leon Anne MD LAB POINT OF CARE TE ST DOCKED DEVICE UNSOLICITED RESULTS Final Result Performing Organization Address City/[facility] Co de Phone Number [facility] [address] [place] [address] documented in this encounter Visit Diagnoses Diagnosis Unilateral primary osteoarthritis, right knee- Primary Arthritis of right knee Unilateral primary osteoarthritis, right knee documented in this encounter Admitting [...] magnesium hydroxide bupivacaine-EPINEPHrine PF (Marcaine w/EPI) 0.5% -1:[id number] injection As needed, Starting on Sun01/28/25 at 1215, Until Sun01/28/25 at 1402, Routine, Intraprocedure Given 01/28/2025 12:15 PM EDT 60 mL calcium-vitamin D 500-200 MG-UNIT per tablet 1 [...] use as first line agent nystatin (Mycostatin) 414943 UNIT/GM powder 1 Application Topical, 2 times [...] 9:17 AM EDT 2,000 mg 147.5 mL/hr vancomycin (Vancocin) vial for injection As needed, Starting on Sun01/28/25 at 1215, Until Sun01/28/25 at 1402, Routine, Intraprocedure Given 01/28/2025 12:15 PM EDT 1 g documented in this encounter Active and Recently [...] Tiffanie 01/29/25 at 1200, Last dose on Sun02/02/25 at 1200, Routine 1227 (Given - Provid [...] Dose 0-3 Units, Subcutaneous, 2 times nightly (2099 & 0300), First dose on Sun01/28/25 at [...] - Provider: Lyn Elizalde RN) nystatin (Mycostatin) 407813 UNIT/GM powder 1 Application Topical, 2 times daily, First dose on Sun01/28/25 at 2100, Until Discontinued, Routine 2143 (Given - Provider: Tessie Hrerera) 0848 (Given - Provider: Chay Zhou RN) [...] FELISA) 0151 (New Bag - Provider: Damon Quick [...] magnesium hydroxide bupivacaine-EPINEPHrine PF (Marcaine w/EPI) 0.5% -1:060710 injection (CANCELED) As needed, Starting on Sun01/28/25 [...] Intramuscular, Every 15 min PRN, Starting on 01/28/25 at 1415, Until Tiffanie 01/29/25 at 1736, Routine, low blood sugar per Hypoglycemia Prevention and Treatment protocol documented in this encounter Additional Health Concerns Active Problems Noted Date Diagnosed Date Autogenerated Problem 01/21/2025 Assessment Noted Time PHQ-9 Depression Total Score: 0 10/02/19 25 1:29 PM EST A fall risk assessment has been complete d for the patient 12/12/2024 12:15 PM EDT A Body Mass Index follow-up plan has been documented for the patient 01/29/2025 2:10 PM EDT documented as of this encounter Care Teams Blending Machine Feeder Relationship Specialty Start Date End Date Nader Fields MD [address] [place] [address] [address] [place] [address] PCP - General 06/16/24 documented as of this encounter
--- OUTSIDE RECORDS SUMMARY | 2025-01-28 11:00 | XMS_ITS | Encounter Summary ---
Author Organization [facility] Address [address] [place] [address] Care Team Providers Care Crop Farm Workers Name Role Phone Nader Fields MD Primary Care Provider [phone] Reason for Visit * Auth/Cert (Routine) Specialty Diagnoses / Procedures Referred By Jean post Referred To Contact Diagnoses Unilateral primary osteoarthritis, right knee Unilateral primary osteoarthritis, right knee [M17.11] Procedures VA TOTAL KNEE ARTHROPLASTY VA CPTR-ASST SURGICAL NAVIGATION IMAGE-LESS ARTHROPLASTY, KNEE, TOTAL, USING COMPUTER-ASSISTED NAVIGATION Leon Anne MD [address] [place] [phone] Phone: tel: fax: [facility] Operating Room [address] [place] [address] Phone: tel: Referral ID Status Reason Start Date Expiration Date Visits Re quested Visits Authorized [id number] 1 1 Encounter Details Date Type Department Care Team (Late st Contact Info) Description 01/28/2025 11:00 AM EDT - 01/28/2025 1:30 PM EDT Surgery [facility] Operating Room [address] [place] [phone] Leon Anne MD [address] [place] [phone] ARTHROPLASTY, KNEE, TOTAL, USING COMPUTER-ASSISTED NAVIGATION [70401 (CPT )] Surgery Details Date/Time Status Location [...] symptoms continue 1 each 01/29/2025 nystatin (Mycostatin) 033760 UNIT/GM powder Apply to skin folds twice [...] PCP name and Address: Nader Fields MD [address] [place] [address] [address] / [place] [address] Referring provider name and address: No referring provider defined for this encounter. Chief Concern, Brief History of Present Illness, and Hospital Course Patient arrived to [facility] on 01[facility]28[facility]25 for their scheduled [...] with home health therapy set up with [facility] . Surgeries and Procedures ARTHROPLASTY, KNEE, TOTAL, [...] in other nostril if symptoms continue nystatin 915300 UNIT/GM powder Commonly known as: Mycostatin Apply [...] Your Medications These medications were sent to [facility] [place] [address] acetaminophen 500 MG tablet aspirin 81 MG EC tablet cefadroxil 500 MG capsule docusate sodium 250 MG capsule fluconazole 100 MG tablet gabapentin 100 MG capsule naloxone 4 mg/0.1 mL nasal spray nystatin 180474 UNIT/GM powder oxyCODONE 5 MG immediate release [...] 02/12/2025 10:20 AM Liya Soto PA [facility] 03/17/2025 11:30 AM Leon Anne MD [facility] 07/10/2025 11:00 AM Saroj Anderson MD [...] with questions orconcerns. TERRANCE Reilly-C Division of [facility] Medicine Secure chat preferred * Progress Notes - Bianca Hassan RN - 01/29/2025 11:45 AM EDT Case Management Adult Progress Note Preet Montoya 74 y.o. male CSN: [id number] Admission: 01/28/2025 7:52 AM Primary Problem: Unilateral [...] in Care Family/Caregiver Present: Yes Family/Caregiver: Spouse Fabricator Special Items: Not Applicable Presentation Oxygen Therapy: None (Room [...] Level of Mobility: Ambulatory- household only Mobility Randall: Assistance with gait with device History of [...] Mobility Bed Mobility Exam: Scooting/Bridging Level of Randall: Minimum assist (75% patient's effort) Physical/Nonphysical Assist: Verbal Cues, Supervision Assistive Device: Bed rails Bed Mobility Exam: Supine to Sit Level of Randall: Minimum assist (75% patient's effort) Physical/Nonphysical Assist: Supervision, Verbal Cues Assistive Device: Bed rails Transfers Transfer Exam: Sit to stand Level of Randall: Stand-by assist Physical/Nonphysical Assist: Supervision, Verbal Cues Assistive Device: Walker, rolling Transfer Exam: Stand to Sit Level of Randall: Stand-by assist Physical/Nonphysical Assist: Supervision, Verbal Cues [...] provided. Standardized Assessments Standardized Assessments Standardized Assessments: [facility] 6-Clicks Mobility Assessment AMPA 6-Clicks Mobility Assessment [...] 3-5 steps with a railing?: A lot [facility] 6-Clicks Mobility Assessment Total : 17 Assessment [...] has a past medical history of Diabetes ([facility]/HCC), GERD (gastroesophageal reflux disease), HLD (hyperlipidemia), and HTN (hypertension). Past Surgical History Patient has a past surgical history that includes knee arthroscopy (Right). Precautions Right Lower Extremity Weight Bearing Status: Weight Bearing as Tolerated Medical Precautions: Fall precautions Subjective Pt agreeable to OT eval. Participants in Care Family/Caregiver Present: Yes Family/Caregiver: Spouse Fabricator Special Items: Not Applicable Presentation Oxygen Therapy: None (Room [...] Level of Mobility: Ambulatory- household only Mobility Randall: Assistance with gait with device History of [...] Mobility Bed Mobility Exam: Scooting/Bridging Level of Randall: Minimum assist (75% patient's effort) Physical/Nonphysical Assist: Verbal Cues, Supervision Assistive Device: Bed rails Bed Mobility Exam: Supine to Sit Level of Randall: Minimum assist (75% patient's effort) Physical/Nonphysical Assist: Supervision, Verbal Cues Assistive Device: Bed rails Transfers Transfer Exam: Sit to stand Level of Randall: Contact guard Physical/Nonphysical Assist: Supervision, Verbal Cues Assistive Device: Walker, rolling Transfer Exam: Stand to Sit Level of Randall: Contact guard Physical/Nonphysical Assist: Supervision, Verbal Cues Assistive Device: Walker, rolling Transfer Exam: Bed to Chair/Chair to Bed Level of Randall: Contact guard Physical/Nonphysical Assist: Supervision, Verbal Cues [...] Follow up: Liya Soto on 02/12 at [facility], Orthopaedic Surgery [address] [place] [address], [address], [place] [address], Harley Waggoner MD Orthopaedic Surgery PGY-2 [facility] Personal Pager: [phone] Orthopaedic Trauma Service Pager: [phone] Orthopaedic Recon/Spine/Foot and Ankle Service Pager: [phone] Cosigned by Leon Anne MD at 01/29/2025 [...] 3:36 PM EDTAssociated Order(s): Inpatient consult to [facility] Inpatient consult to Ata Victor Consult [...] Abnormal Ventricular Rate 84 Atrial Rate 84 VA Interval 258 QRSD Interval 112 QT Interval 374 QTC Interval 441 P Adel 61 R Adel 23 T Wave Adel 0 Diagnosis Sinus rhythm with 1st degree AV block Diagnosis Incomplete right bundle branch block Diagnosis Borderline ECG Diagnosis Diagnosis Confirmed by Trey Marcelino ([id number]) on 12/17/2024 1:50:00 PM *Note: Due to [...] MD at 02/11/2025 1:18 PM EDT * Blanhce Sumner RN - 01/28/2025 3:10 PM EDT [...] changes color ?? Burning feeling * [facility], RN - 01/28/2025 3:10 PM EDT Images from the original note were not included. 25885 After Knee Replacement: Using a Walker Following [...] after your physical or occupational therapist or scientific software developer has shown you the correct procedures, you [...] leg. Last Reviewed Date: 2024 00:00:00 ?? 5585-5950 [employer]. All rights reserved. This information is not intended as a substitute for professional medical care. Always follow your healthcare professional's instructions. * [facility]in [facility] RN - 01/28/2025 3:10 PM EDT Images from the original note were not included. 59230 Preventing Deep Vein Thrombosis After Surgery In [...] blood clots. Move your feet in a ambler or up and down. Do this 10 [...] bleeding Last Reviewed Date: 2022 00:00:00 ?? 8967-9694 [employer]. All rights reserved. This information is not intended as a substitute for professional medical care. Always follow your healthcare professional's instructions. * Kristin [facility] Blanche Busch RN - 01/28/2025 3:10 PM EDT Images from the original note were not included. 50736 Using an Incentive Spirometer An incentive spirometer [...] rate Last Reviewed Date: 2024 00:00:00 ?? 2777-2821 [employer]. All rights reserved. This information is not intended as a substitute for professional medical care. Always follow your healthcare professional's instructions. * Kristin [facility] - Blanche Busch RN - 01/28/2025 3:10 PM EDT Images from the original note were not included. 03405 Preventing a Surgical Site Infection A risk [...] of infection. ?? Controlled body temperature. A dspok-vpes-lpoupr temperature during or after surgery prevents oxygen [...] and water or with an alcohol-based hand room service waiter before and after caring for you. Don?t [...] away. Last Reviewed Date: 2024 00:00:00 ?? 0678-6441 [employer]. All rights reserved. This information is not intended as a substitute for professional medical care. Always follow your healthcare professional's instructions. * [facility]in [facility] RN - 01/28/2025 [...] medicines unless your doctor approves. This includes kpcs-mjw-jwxyieq medicines like aspirin, ibuprofen and Tylenol. ?? [...] a nutritional supplement such as Boost or [place] Instant Breakfast until your appetite returns to [...] ?? If you have problems sleeping, take sblh-jbd-jcahbzu diphenhydramine (Benadryl) or melatonin. ?? If you [...] prescription refill before your next appointment, call [phone]. Call 2 business days before you run out. ?? To check joint stability over time, you may have X-rays every five years. When should I call the doctor? Call 321 right away if you have any of [...] PM EDT Operative Note Date: 01/28/25 Location: [facility] OR Name: Preet Montoya, : 1950, SURGEON: Leon Anne M.D. MOLD FILLER AND DRAINER #1: Harley Das MD as there was no qualified resident available MOLD FILLER AND DRAINER #2: Harley Waggoner MD PREOPERATIVE DIAGNOSIS: Advanced degenerative joint disease secondary to osteoarthritis of the Right Knee Morbid Obesity POSTOPERATIVE DIAGNOSIS: same PROCEDURE: Right Total Knee Arthroplasty Computer Assisted Navigation of Right Total Knee Arthroplasty, Imageless IMPLANTS: Ammunition Storage Superintendent: Medeiros and Nephew Brand: Journey 2.0 Tibial [...] future surgeryincluding the potential for amputation, DVT, WA, stroke, and . The patient completed preoperative [...] distal femoral cut was performed using the Vascular Closure Imageless Navigation. The pin was placed to the distal femur and the navigation unit was then attached. The alignment was set at 3.5o for flexion and for 1 varus to the mechanical axis of the leg. The distal femoral cutting block was then pinned to the distal femur and we performed the cut. The proximal tibia was cut using the Vascular Closure Imageless Navigation. The cutting guide was placed [...] was set to be 90 degrees to [place]'s lineand parallel to the transepicondylar axis. The 4-1 cutting guide was placed and the cuts were performed. The following releases were required to balance the knee: deep MCL, PCL, posterior capsule. Marginal osteophytes were removed and a lamina critical care nurse was utilized with the knee in 90?? [...] MD who has operative credentials at the [facility]. His assistance was needed for [...] surgery Harley Waggoner MD Orthopaedic Surgery PGY-2 [facility] [1] Family History Problem Relation [...] [facility] [address] [place] [address] Vince Neumann [facility] [address] [facility] [address] [place] [address] 06/18/2025 12:40 PM EDT Office Visit Medical Office Building Surgery [facility] [address], [address] [place] [address] Leon Anne MD [address] [place] [address] 07/31/2025 12:20 PM EST Office Visit [facility] [address] [place] [address] Saroj Anderson MD [address] [place] [address] Scheduled Referrals Name Type Priority Associated Diagnoses Order Schedule Discharge Ambulatory referral to [facility] Health Outpatient Referral Routine Arthritis of [...] UNSOLICITED RESULTS Routine 01/28/2025 2:10 PM EDT VA TOTAL KNEE ARTHROPLASTY 01/28/2025 11:27 AM EDT Unilateral primary osteoarthritis, right knee POCT GLUCOSE METER UNSOLICITED RESULTS Routine 01/28/2025 8:35 AM EDT documented in this encounter Results * (ABNORMAL) POCT glucose meter (01/29/2025 11:37 AM EDT) POCT Glucose 170(H) 74 - 99 mg/dL 01/29/2025 11:42 AM EDT [facility] Comment:Accuracy of [...] 01/29/2025 11:42 AM EDT [facility] Director Of Exhibit Development ID Clementina Roth 11:42 AM EDT [facility] Device ID [id number] 01/29/2025 11:42 AM EDT [facility] Specimen Type POC Capillary 01/29/2025 11:42 AM EDT [facility] Blood Capillary blood specimen / Unknown 01/29/2025 11:37 AM EDT 01/29/2025 11:42 AM EDT Leon Anne MD LAB POINT OF CARE TE ST DOCKED DEVICE UNSOLICITED RESULTS Final Result Performing Organization Address City/[facility] Co de Phone Number [facility] [address] [place] [address] * (ABNORMAL) POCT glucose meter (01/29/2025 7:51 [...] for testing. Comment 01/29/2025 7:54 AM EDT [facility] Director Of Exhibit Development ID Clementina Roth 7:54 AM EDT [facility] Device ID [id number] 01/29/2025 7:54 AM EDT [facility] Specimen Type POC Capillary 01/29/2025 7:54 AM EDT [facility] Blood Capillary blood specimen / Unknown 01/29/2025 7:51 AM EDT 01/29/2025 7:54 AM EDT Leon Anne MD LAB POINT OF CARE TE ST DOCKED DEVICE UNSOLICITED RESULTS Final Result Performing Organization Address City/[facility] Co de Phone Number [facility] [address] [place] [address] * (ABNORMAL) Basic metabolic panel (01/29/2025 1:49 AM EDT) Glucose, Plasma 174(H) 74 - 99 mg/dL 01/29/2025 3:35 AM EDT [facility] BUN, Plasma 31(H) 8 - 23 mg/dL 01/29/2025 3:35 AM EDT [facility] Creatinine, Plasma 1.62(H) 0.70 - 1.20 mg/dL 01/29/2025 3:35 AM EDT [facility] BUN/Creatinine Ratio 19 01/29/2025 3:35 AM EDT [facility] Sodium, Plasma 139 136 - 145 mmol/L 01/29/2025 3:35 AM EDT [facility] Potassium, Plasma 4.0 3.6 - 4.9 mmol/L 01/29/2025 3:35 AM EDT [facility] Chloride, Plasma 102 97 - 107 mmol/L 01/29/2025 3:35 AM EDT [facility] CO2, Plasma 23 22 - 29 mmol/L 01/29/2025 3:35 AM EDT [facility] Anion Gap 14 6 - 16 mmol/L 01/29/2025 3:35 AM EDT [facility] Total Calcium, Plasma 8.5(L) 8.9 - 10.2 mg/dL 01/29/2025 3:35 AM EDT [facility] eGFRcr 44.3 mL/min/1.7 3m*2 01/29/2025 3:35 AM EDT [facility] Comment:Reported eGFRcr in m L/min/1.73m2 is based the CKD-EPI 2020 equation that does not use a race coefficient. Blood Venous blood specimen / Unknown Venipuncture / Unknown 01/29/2025 1:49 AM EDT 01/29/2025 3:06 AM EDT us Miranda Salamanca [employer] [facility] LAB BLOOD ORDERABLES Final Re sult [facility] [address] [place] [address] * (ABNORMAL) CBC (01/29/2025 1:49 AM EDT) WBC Count 10.61(H) 3.70 - 10.30 10*3/uL LAB HEMATOLOGY METHOD 01/29/2025 3:20 AM EDT [facility] RBC Count 3.41(L) 4.60 - 6.10 10*6/uL LAB HEMATOLOGY METHOD 01/29/2025 3:20 AM EDT [facility] HGB 9.8(L) 13.7 - 17.5 g/dL LAB HEMATOLOGY METHOD 01/29/2025 3:20 AM EDT [facility] HCT 30.5(L) 40.0 - 51.0 % LAB HEMATOLOGY METHOD 01/29/2025 3:20 AM EDT [facility] Platelet Count 292 155 - 369 10*3/uL LAB HEMATOLOGY METHOD 01/29/2025 3:20 AM EDT [facility] MCV 89 79 - 98 fL LAB HEMATOLOGY METHOD 01/29/2025 3:20 AM EDT [facility] MCH 28.7 26.0 - 32.0 pg LAB HEMATOLOGY METHOD 01/29/2025 3:20 AM EDT [facility] MCHC 32.1 30.7 - 35.5 g/dL LAB HEMATOLOGY METHOD 01/29/2025 3:20 AM EDT [facility] RDW 12.9 11.5 - 14.5 % LAB HEMATOLOGY METHOD 01/29/2025 3:20 AM EDT [facility] MPV 8.8 8.8 - 12.5 fL LAB HEMATOLOGY METHOD 01/29/2025 3:20 AM EDT [facility] nRBC 0.0 <=0.0 per 100 WBCs LAB HEMATOLOGY METHOD 01/29/2025 3:20 AM EDT [facility] Blood Venous blood specimen / Unknown Venipuncture / Unknown 01/29/2025 1:49 AM EDT 01/29/2025 3:12 AM EDT us Miranda Salamanca [employer] LAB BLOOD ORDERABLES Final Re sult [facility] [address] [place] [address] * (ABNORMAL) POCT glucose meter (01/28/2025 9:05 PM EDT) [facility] POCT Glucose 187(H) 74 - 99 mg/dL [...] for testing. Comment 01/28/2025 9:08 PM EDT [facility] Director Of Exhibit Development ID Edith Astudillo 01/28/2025 9:08 PM EDT [facility] Device ID [id number] 01/28/2025 9:08 PM EDT [facility] Specimen Type POC Capillary 01/28/2025 9:08 PM EDT [facility] Blood Capillary blood specimen / Unknown 01/28/2025 9:05 PM EDT 01/28/2025 9:08 PM EDT us Leon Anne MD LAB POINT OF CARE TE ST DOCKED DEVICE UNSOLICITED RESULTS Final Result Performing Organization Address [facility] de Phone Number [facility] [address] [place] [address] * (ABNORMAL) POCT glucose meter (01/28/2025 4:57 PM EDT) [facility] POCT Glucose 162(H) 74 - 99 mg/dL [...] 01/28/2025 5:00 PM EDT [facility] Director Of Exhibit Development ID Tomas Arita 01/28/2025 5:00 PM EDT [facility] Device ID [id number] 01/28/2025 5:00 PM EDT [facility] Specimen Type POC Capillary 01/28/2025 5:00 PM EDT [facility] Blood Capillary blood specimen / Unknown 01/28/2025 4:57 PM EDT 01/28/2025 5:00 PM EDT us Leon Anne MD LAB POINT OF CARE TE ST DOCKED DEVICE UNSOLICITED RESULTS Final Result Performing Organization Address City/[facility] Co de Phone Number [facility] [address] [place] [address] * XR Knee Right 1 or 2 [...] Stout on 01/28/2025 2:49 PM Miranda Salamanca APRN IMG XR PROCEDURES Final Resul t * (ABNORMAL) POCT glucose meter (01/28/2025 2:10 PM EDT) [facility] POCT Glucose 179(H) 74 - 99 mg/dL 01/28/2025 2:11 PM EDT [facility] Comment:Accuracy of a glucos e result [...] 01/28/2025 2:11 PM EDT [facility] Director Of Exhibit Development ID Zenaida Deal 01/29/20 2:11 PM EDT [facility] Device ID [id number] 01/28/2025 2:11 PM EDT [facility] Specimen Type POC Capillary 01/28/2025 2:11 PM EDT [facility] Blood Capillary blood specimen / Unknown 01/28/2025 2:10 PM EDT 01/28/2025 2:11 PM EDT Leon Anne MD LAB POINT OF CARE TE ST DOCKED DEVICE UNSOLICITED RESULTS Final Result Performing Organization Address City/[facility] Co de Phone Number [facility] [address] [place] [address] * (ABNORMAL) POCT glucose meter (01/28/2025 8:35 AM EDT) POCT Glucose 150(H) 74 - 99 mg/dL [...] Comment 01/28/2025 8:36 AM EDT [facility] Director Of Exhibit Development ID Karen Taveras 01/28/2025 8:36 AM EDT [facility] Device ID [id number] 01/28/2025 8:36 AM EDT [facility] Specimen Type POC Capillary 01/28/2025 8:36 AM EDT [facility] Blood Capillary blood specimen / Unknown 01/28/2025 8:35 AM EDT 01/28/2025 8:36 AM EDT us Leon Anne MD LAB POINT OF CARE TE ST DOCKED DEVICE UNSOLICITED RESULTS Final Result Performing Organization Address City/[facility]/ZIP Co de Phone Number [facility] [address] [place] [address] documented in this encounter Visit Diagnoses Diagnosis [...] magnesium hydroxide bupivacaine-EPINEPHrine PF (Marcaine w/EPI) 0.5% -1:338644 injection As needed, Starting on Sun01/28/25 at [...] use as first line agent nystatin (Mycostatin) 668757 UNIT/GM powder 1 Application Topical, 2 times [...] on Sun01/28/25 at 1730, Until Discontinued, Routine 173 (Not Given - Provider: Kayla Chou RN [...] - Provider: Lyn Elizalde RN) nystatin (Mycostatin) 007453 UNIT/GM powder 1 Application Topical, 2 times daily, First dose on Sun01/28/25 at 2100, Until Discontinued, Routine 2143 (Given - Provider: eTssie Herrera) 0848 (Given - Provider: Chay Zhou RN) oxyCODONE (Roxicodone) immediate release tablet 5 mg (COMPLETED) 5 mg, Oral, Once, 1 dose, On Sun01/28/25 at 0915, Routine, Holding - Preprocedure 0949 (Given - Provider: Lyn Elizalde RN) pantoprazole (Protonix) EC tablet 40 mg 40 mg, Oral, Daily before breakfast, First dose on Sun01/28/25 at 1645, Until Discontinued, Routine, Recovery(Phase II-Outpatient)/On Unit(Inpatient) 173 (Given - Provider: Kayla Chou RN) 0849 [...] Unit(Inpatient) 213 (Given - Provider: Tessie Herrera) tamsulosin (Flomax) 24 hr capsule 0.4 mg 0.4 mg, Oral, Daily, First dose (after last modification) on Sun01/28/25 at 1945, Until Discontinued, Routine 213 (Given - Provider: Tessie Herrera) 0849 (Given [...] magnesium hydroxide bupivacaine-EPINEPHrine PF (Marcaine w/EPI) 0.5% -1:269540 injection (CANCELED) As needed, Starting on Sun01/28/25 [...] documented as of this encounter Care Teams Crop Farm Workers Relationship Specialty Start Date End Date Nader Fields MD [facility] [address] [place] [address] PCP - General 06/16/24 documented as of this encounter
--- OUTSIDE RECORDS SUMMARY | 2025-01-28 11:40 | XMS_ITS | Encounter Summary ---
Author Organization [facility] Address [address] [place] [address] Care Team Providers Care Supervisor Housecleaner Name Role Phone Nader Fields MD Primary Care Provider [phone] Reason for Visit * Auth/Cert (Routine) Specialty Diagnoses / Procedures Referred By Jean post Referred To Contact Diagnoses Unilateral primary osteoarthritis, right knee Unilateral primary osteoarthritis, right knee [M17.11] Procedures AR TOTAL KNEE ARTHROPLASTY AR CPTR-ASST SURGICAL NAVIGATION IMAGE-LESS ARTHROPLASTY, KNEE, TOTAL, USING COMPUTER-ASSISTED NAVIGATION Leon Anne MD [address] [facility] [address] [place] [address] Phone: tel: fax: [facility] Operating Room [address] [place] [address] Phone: tel: Referral ID Status Reason Start Date Expiration Date Visits Re quested Visits Authorized [id number] 1 1 Encounter Details Date Type Department Care Team (Late st Contact Info) Description 01/28/2025 11:40 AM EDT Anesthesia Event [facility] Operating Room [address] [place] [address] Ja Alexandre CRNA [address] [place] [address] Kwasi Mckeon MD [address] [place] [address] Anesthesia Record Procedure Summary Procedure Name Responsible Anesthesiologist Anesthesia Start Time Anesthesia Stop Time ARTHROPLASTY, KNEE, TOTAL, USING COMPUTER-ASSISTED NAVIGATION (Right: Knee) Ja Alexandre, WORLD GEOGRAPHY TEACHER 01/28/25 1140 01/28/25 1408 Events Date Time Event Comment 01/28/2025 0948 1140 An Start The patient was reevaluated immediately before sedation and remains eligible for anesthesia plan. 1142 In Room 1142 An Start Data 1151 An Induction The patient was reevaluated immediately before moderate or deep sedation use and before anesthesia induction. 1154 An Intubation 1154 Anesthesia Ready 1213 An Tourn Inflated 1214 Proc Start 1219 An Tourn Deflated 1306 Attending Handoff 1359 An Extubation 1400 Proc Fin 1400 an stop data 1402 Out of Room 1407 Handoff to Receiving I compl eted my handoff to the receiving clinician during which we: 1. Identified the patient 2. Identified the responsible provider 3. Reviewed the pertinent medical history 4. Discussed the surgical course 5. Reviewed intra-op anesthesia management and issues during anesthesia 6. Set expectations for post-procedure period 7. Allowed opportunity for questions and acknowledgement of understanding. 1408 An Stop Meds Name Total fentaNYL (Sublimaze) injection 50 mcg/mL 100 mcg lidocaine PF (Xylocaine-MPF) 2% 100 mg propofol (Diprivan) injection 10 mg/mL 2 00 mg rocuronium (ZeMuron) injection 10 mg/mL 90 mg HYDROmorphone PF (Dilaudid) injection 1 mg/mL 0.5 mg ePHEDrine injection prefilled syringe 5 mg/mL 15 mg phenylephrine (Paul-Synephrine) prefilled syringe 1 mg/10 mL 800 mcg ondansetron (Zofran) injection 2 mg/mL 4 mg sugammadex (Bridion) injection 100 mg/mL 200 mg ceFAZolin (Ancef) injection 3 g 3 g tranexamic acid (Cyklokapron ) 1,500 mg in sodium chloride 0.9 % 100 mL (15 mg/mL) infusion 1,000 mg tranexamic acid (Cyklokapron ) 1,500 mg in sodium chloride 0.9 % 100 mL (15 mg/mL) infusion 1,000 mg lactated Ringer's infusion 1,200 mL * Agents Name O2 N2O Air Sevoflurane Inspired Sevoflurane N2O Inspired N2O * Blood No blood administrations on file. Lines, Drains, and Airways Type Details Placement Removal Wound 01/28/25; Knee; Ante rior, Right 01/28/25 0000 by Matilde Estrada RN Peripheral IV Placement Date: 04/17; Placement Time: 0900; Catheter Size: 20 G; Orientation: Left, Posterior; Location: Hand; Insertion Attempts: 1; Patient Tolerance: Tolerated well; Removal Date: 01/29/25; Removal Time: 1447 01/28/25 0900 by Lyn Elizalde RN 01/29/25 1447 by Kayla Chou RN ETT Placement Date: 04/17; Placement Time: 1154 (created via procedure documentation); Mask Ventilation: 2; Technique: Direct laryngoscopy; Type: ETT - single; Single Lumen Tube Size: 8 mm; Cuffed: Yes; Laryngoscope: Juliana; Blade Size: 3; Location: Oral; Grade View: Grade I; Insertion Attempts: 1; Placement Verification: Auscultation, Capnometry; Airway Comments: Atraumatic. No change to dentition. ; Placed by: WORLD GEOGRAPHY TEACHER; Removal Date: 01/28/25; Removal Time: 1359 01/28/25 1154 by Ja Alexandre CRNA 01/28/25 1359 by Ja Alexandre CRNA documented in this encounter Social History Tobacco [...] on file documented as of this encounter Functional Status * Calculated C-SSRS Risk Score (Lifetime/Recent) Answer Date of Assessment Author No Risk Indicated 01/28/2025 8:35 AM EDT Deidre Elizalde RN * Question Answer Date of Assessment Author 1. Wish to be (Past 1 Month) No 025 8:35 AM EDT Lyn Elizalde, RN 2. Non-Specific Active Suici fatuma Thoughts (Past 1 Month) No 01/28/2025 8:35 AM EDT Lyn Elizalde , RN 6. Suicidal Behavior (Lifetime) No 8:35 AM EDT Lyn Elizalde, RN documented as of this encounter Miscellaneous Notes * Anesthesia Postprocedure Evaluation - Ja Alexandre CRNA - 01/28/2025 2:09 PM EDT Patient: Preet Montoya Anesthesia Type: general Vitals Value Taken Time BP 165/66 01/28/25 14:05 Temp 98.2 01/28/25 14:09 Pulse 91 01/28/25 14:08 Resp 23 01/28/25 14:08 SpO2 98 % 01/28/25 14:08 Vitals shown include unfiled device data. Anesthesia Post Evaluation Patient location during evaluation: PACU Patient participation: complete - patient participated Level of consciousness: awake Pain management: adequate (pain score 0-3) Airway patency: natural airway Cardiovascular status: acceptable and hemodynamically stable Respiratory status: acceptable, blow-by oxygen, spontaneous ventilation, face mask and nonlabored ventilation Hydration status: acceptable Nausea/Vomiting: No Comments: Pt in paru, pt vss, report to RN at bedside. No notable events documented. * Anesthesia Procedure Notes - Ja Alexandre CRNA - 01/28/2025 12:04 PM EDT Associated Order(s): Airway Airway Date/Time: 01/28/2025 11:54 AM Reason: elective Airway not difficult General Information and Staff Patient location during procedure: OR WORLD GEOGRAPHY TEACHER: Ja Alexandre CRNA Performed: SVETLANA Patient Condition Indications for airway management: anesthesia Patient position: sniffing Final Airway Details Final airway type: endotracheal airway Successful airway: ETT Cuffed: yes Successful intubation technique: direct laryngoscopy Adjuncts used in placement: intubating stylet Endotracheal tube insertion site: oral Blade: Juliana Blade size: #3 ETT size (mm): 8.0 Cormack-Lehane Classification: grade I - full view of glottis Placement verified by: chest auscultation and capnometry Measured from: lips ETT to lips (cm): 23 Additional Comments Atraumatic. No change to dentition. * Anesthesia Preprocedure Evaluation - Kwasi Mckeon MD - 01/28/2025 8:28 AM EDT Patient: Preet Vazy 74 yo morbidly obese man ( Giovanni ) presents for right computer assisted total knee arthroplasty due to OA. PMH: anemia (hgb 12.4), HTN, HLD, DMT2 c/b bilateral foot neuropathy (A1c 6.2%), CKD (cre 1.95), SUELLEN (no CPAP), controlled GERD, BPH. 2024 ECG shows NSR with 1st degree AVB and partial RBBB. Prior GA without apparent complication. Procedure Information Date/Time: 01/28/25 1100 Procedure: ARTHROPLASTY, KNEE, TOTAL, USING COMPUTER-ASSISTED NAVIGATION (Right: Knee) Location: [address] [place] [address] OR Surgeons: Leon Anne MD Relevant Problems Other (+) Arthritis of right knee (+) Unilateral primary osteoarthritis, right knee Anesthesia Evaluation Clinical information reviewed: NPO Status Physical Exam Airway Mallampati: III Mouth opening: normal TM distance: >3 FB Neck ROM: full Cardiovascular Rhythm: regular Rate: normal Dental Pulmonary Breath sounds clear to auscultation Neurological Oriented: normal to time, normal to place and normal to person and oriented to person, place and time Skin Musculoskeletal Extremities Anesthesia Plan ASA 3 Plan was reviewed with: SVETLANA Anesthesia technique(s) discussed with the patient/family: general, MAC and spinal Anesthesia plan agreed upon was: general Anesthetic plan and risks discussed with patient. Additional Equipment Requests documented in this encounter Plan of Treatment Upcoming Encounters Date Type Department Care Team (Late st Contact Info) Description 06/18/2025 12:40 PM EDT Office Visit Medical Office Building [facility] [address], [address] [place] [address] Leon Anne MD [address] [place] [address] 07/31/2025 12:20 PM EST Office Visit [facility] [address] [place] [address] Saroj Anderson MD [address] [place] [address] documented as of this encounter Goals Goal Patient Goal Type Associated Problems Recent Progress Patient-Stated? Author Autogenerat ed Goal Care Plan Autogenerated Problem No Kallie Villa documented as of this encounter Procedures Procedure Name Priority Date/Time Associated Diagnosis Comments PB ANESTHESIA PLACEHOLDER Routine 01/28/2025 11:54 AM EDT AR AN ELECTIVE ENDOTRACHEAL AIRWAY Routine 01/28/2025 11:54 AM EDT documented in this encounter Results * AR AN ELECTIVE ENDOTRACHEAL AIRWAY, PB ANESTHESIA PLACEHOLDER (01/28/2025 11:54 AM EDT) Narrative Ja Alexandre CRNA - 01/28/2025 11:54 AM EDT Ja Alexandre CRNA 01/28/2025 12:04 PM Airway Date/Time: 01/28/2025 11:54 AM Reason: elective Airway not difficult General Information and Staff Patient location during procedure: OR WORLD GEOGRAPHY TEACHER: Ja Alexandre CRNA Performed: WORLD GEOGRAPHY TEACHER Patient Condition Indications for airway management: anesthesia Patient position: sniffing Final Airway Details Final airway type: endotracheal airway Successful airway: ETT Cuffed: yes Successful intubation technique: direct laryngoscopy Adjuncts used in placement: intubating stylet Endotracheal tube insertion site: oral Blade: Juliana Blade size: #3 ETT size (mm): 8.0 Cormack-Lehane Classification: grade I - full view of glottis Placement verified by: chest auscultation and capnometry Measured from: lips ETT to lips (cm): 23 Additional Comments Atraumatic. No change to dentition. us Kwasi Mckeon MD ANESTHESIA ORDERABLES Final R esult documented in this encounter Visit Diagnoses Not on filedocumented in this encounter Administered Medications Inactive Administered Medications - up to 3 most recent administrations Medication Order MAR Action Action Date Dose Rate Site ceFAZolin (Ancef) injection 3 g 3 g, Intravenous, Once, 1 dose, On Sun01/28/25 at 0915, Routine, Anesthesia Intraprocedure Given 01/28/2025 12:00 PM EDT 3 g ePHEDrine Sulfate (Akovaz) injection Intravenous, As needed, Starting on Sun01/28/25 at 1253, Until Sun01/28/25 at 1409, Routine, Anesthesia Intraprocedure Given 01/28/2025 1:11 PM EDT 5 mg Given 01/28/2025 12:56 PM EDT 5 mg Given 01/28/2025 12:53 PM EDT 5 mg fentaNYL (Sublimaze) injection Intravenous, As needed, Starting on Sun01/28/25 at 1151, Until Sun01/28/25 at 1409, Routine, Anesthesia Intraprocedure Given 01/28/2025 12:16 PM EDT 50 mcg Given 01/28/2025 11:51 AM EDT 50 mcg HYDROmorphone PF (Dilaudid) injection Intravenous, As needed, Starting on Sun01/28/25 at 1232, Until Sun01/28/25 at 1409, Routine, Anesthesia Intraprocedure Given 01/28/2025 1:34 PM EDT 0.2 mg Given 01/28/2025 12:32 PM EDT 0.3 mg lactated Ringer's infusion Intravenous, Continuous PRN, Starting on Sun01/28/25 at 1140, Until Sun01/28/25 at 1409, Routine New Bag 01/28/2025 1:22 PM EDT New Bag 01/28/2025 11:40 AM EDT lidocaine PF (Xylocaine) 2 % injection Intravenous, As needed, Starting on Sun01/28/25 at 1151, Until Sun01/28/25 at 1409, Routine, Anesthesia Intraprocedure Given 01/28/2025 11:51 AM EDT 100 mg ondansetron (Zofran) injection Intravenous, As needed, Starting on Sun01/28/25 at 1314, Until Sun01/28/25 at 1409, Routine, Anesthesia Intraprocedure Given 01/28/2025 1:14 PM EDT 4 mg phenylephrine in NS (Paul-Synephrine) 100 mcg/mL prefilled syringe Intravenous, As needed, Starting on Sun01/28/25 at 1201, Until Sun01/28/25 at 1409, Routine, Anesthesia Intraprocedure Given 01/28/2025 1:17 PM EDT 200 mcg Given 01/28/2025 1:11 PM EDT 100 mcg Given 01/28/2025 12:56 PM EDT 100 mcg propofol (Diprivan) injection Intravenous, As needed, Starting on Sun01/28/25 at 1152, Until Sun01/28/25 at 1409, Routine, Anesthesia Intraprocedure Given 01/28/2025 1:33 PM EDT 20 mg Given 01/28/2025 12:32 PM EDT 30 mg Given 01/28/2025 11:52 AM EDT 150 mg rocuronium (ZeMuron) injection Intravenous, As needed, Starting on Sun01/28/25 at 1152, Until Sun01/28/25 at 1409, Routine, Anesthesia Intraprocedure Given 01/28/2025 1:07 PM EDT 10 mg Given 01/28/2025 11:52 AM EDT 80 mg sugammadex (Bridion) 100 MG/ML injection Intravenous, As needed, Starting on Sun01/28/25 at 1356, Until Sun01/28/25 at 1409, Routine, Anesthesia Intraprocedure Given 01/28/2025 1:56 PM EDT 200 mg tranexamic acid (Cyklokapron) 1,500 mg in sodium chloride 0.9 % 100 mL (15 mg/mL) infusion 1,500 mg, Intravenous, Once, 1 dose, On Sun01/28/25 at 0915, Routine, Holding - Preprocedure New Bag 01/28/2025 12:00 PM EDT 1,000 mg tranexamic acid (Cyklokapron) 1,500 mg in sodium chloride 0.9 % 100 mL (15 mg/mL) infusion 1,500 mg, Intravenous, Once, 1 dose, On Sun01/28/25 at 0915, Routine, Holding - Preprocedure New Bag 01/28/2025 1:24 PM EDT 1,000 mg documented in this encounter Additional Health Concerns [...] documented as of this encounter Care Teams Supervisor Housecleaner Relationship Specialty Start Date End Date Nader Fields MD [address] [place] [address] [address] [place] [address] PCP - General 06/16/24 documented as of this encounter
--- OUTSIDE RECORDS SUMMARY | 2025-01-28 11:40 | XMS_ITS | Encounter Summary ---
Author Organization [facility] Address [address] [place] [address] Care Team Providers Care Showroom Salesperson Name Role Phone Nader Fields MD Primary Care Provider [phone] Reason for Visit * Auth/Cert (Routine) Specialty Diagnoses / Procedures Referred By Jean post Referred To Contact Diagnoses Unilateral primary osteoarthritis, right knee Unilateral primary osteoarthritis, right knee [M17.11] Procedures SD TOTAL KNEE ARTHROPLASTY SD CPTR-ASST SURGICAL NAVIGATION IMAGE-LESS ARTHROPLASTY, KNEE, TOTAL, USING COMPUTER-ASSISTED NAVIGATION Leon Anne MD [address] [facility] [address] [place] [address] Phone: tel: fax: [facility] Operating Room [address] [place] [address] Phone: tel: Referral ID Status Reason Start Date Expiration Date Visits Re quested Visits Authorized [id number] 1 1 Encounter Details Date Type Department Care Team (Late st Contact Info) Description 01/28/2025 11:40 AM EDT Anesthesia Event [facility] Operating Room [address] [place] [address] Ja Alexandre CRNA [address] [place] [address] Kwasi Mckeon MD [address] [place] [address] Anesthesia Record Procedure Summary Procedure Name Responsible Anesthesiologist Anesthesia Start Time Anesthesia Stop Time ARTHROPLASTY, KNEE, TOTAL, USING COMPUTER-ASSISTED NAVIGATION (Right: Knee) Ja Alexandre, LINK CUTTER 01/28/25 1140 01/28/25 1408 Events Date Time [...] No change to dentition. ; Placed by: LINK CUTTER; Removal Date: 01/28/25; Removal Time: 1359 01/28/25 [...] CRNA - 01/28/2025 2:09 PM EDT Patient: Peret Montoya Anesthesia Type: general Vitals Value Taken [...] and Staff Patient location during procedure: OR LINK CUTTER: Ja Alexandre CRNA Performed: SVETLANA Patient Condition [...] GA without apparent complication. Procedure Information Date/Time: 01/28/251099 Procedure: ARTHROPLASTY, KNEE, TOTAL, USING COMPUTER-ASSISTED NAVIGATION (Right: Knee) Location: [address] [place] [address] OR Surgeons: Leon Anne MD Relevant Problems [...] [facility] [address] [facility], [address]nd [place] [address] Vince Neumann MD [address] [facility] [address] [place] [address] 06/18/2025 12:40 PM EDT Office Visit Medical Office Building [facility] [address] [facility], [address] [place] [address] Leon Anne MD [address] [facility] [address] [place] [address] 07/31/2025 12:20 PM EST Office Visit [facility] [address] [place] [address] Saroj Anderson MD [address] [place] [address] documented as of this encounter Goals Goal Patient Goal Type Associated Problems Recent Progress Patient-Stated? Author Autogenerat ed Goal Care Plan Autogenerated Problem No Kallie Villa documented as of this encounter Procedures Procedure Name Priority Date/Time Associated Diagnosis Comments PB ANESTHESIA PLACEHOLDER Routine 01/28/2025 11:54 AM EDT SD AN ELECTIVE ENDOTRACHEAL AIRWAY Routine 01/28/2025 11:54 AM EDT documented in this encounter Results * SD AN ELECTIVE ENDOTRACHEAL AIRWAY, PB ANESTHESIA PLACEHOLDER (01/28/2025 11:54 AM EDT) Narrative Ja Alexandre CRNA - 01/28/2025 11:54 AM EDT Ja Alexandre CRNA 01/28/2025 12:04 PM Airway Date/Time: 01/28/2025 11:54 AM Reason: elective Airway not difficult General Information and Staff Patient location during procedure: OR LINK CUTTER: Ja Alexandre CRNA Performed: LINK CUTTER Patient Condition Indications for airway management: anesthesia [...] documented as of this encounter Care Teams Showroom Salesperson Relationship Specialty Start Date End Date Nader Fields MD [address] [place] [address] PCP - General 06/16/24 documented as of this encounter
--- OUTSIDE RECORDS SUMMARY | 2025-02-12 10:20 | XMS_ITS | Encounter Summary ---
Author Organization [facility] Address [address] [place] [address] Care Team Providers Care C Engineer Name Role Phone Nader Fields MD Primary Care Provider [phone] Reason for Visit * Reason Comments Post-op Follow-up Encounter Details Date Type Department Care Team ([facility] st Contact Info) Description 02/12/2025 10:20 AM EDT Office Visit Medical Office Building [facility] [address] [facility], [address] [place] [address] Liya Soto PA [address] [facility] [address] [place] [address] S/P total knee arthroplasty, right (Primary Dx) Social History Tobacco Use Types Packs/Day Years Used Date Smoking Tobacco: Never Smokeless Tobacco: Never Tobacco Cessation:Counseling Given: Not Answered Alcohol Use Standard Drinks/Week Comments Never 0 [...] any time in the past 12 m [employer] [place], were you homeless or living in a intermediate (including now)? No 02/03/2025 Utilities Answer Date Recorded In the past 12 months has th e [employer], gas, oil, or water company threatened to shut off services in your home? No 02/03/2025 Sex and Gender Information Value Date Recorded Sex Assigned at Not on file Legal Sex Male 10:03 AM EDT Gender Identity Not on file Sexual Orientation Not on file documented as of this encounter Last Filed Vital Signs Vital Sign Reading Time Taken Comments Blood Pressure 107/76 02/12/2025 10:22 AM EDT Pulse 93 02/12/2025 10:22 AM EDT Temperature - - Respiratory Rate - - Oxygen Saturation 92% 02/12/2025 10:22 AM EDT Inhaled Oxygen Concentration - - Weight 136 kg (299 lb) 02/12/2025 10:22 AM EDT Height 182.9 cm (6') 02/12/2025 10:22 AM EDT Body Mass Index 40.55 02/12/2025 10:22 AM EDT documented in this encounter Miscellaneous Notes * Progress Notes - Liya Soto PA - 02/12/2025 10:20 AM EDT Images from the original note were not included. ID: Patient is a 74 year old male who presents for 2 week post-operative follow up s/p R TKA with Dr. Anne. Subjective: Endorses compliance with physical therapy as well as anticoagulation. Patient had been hospitalized post-operatively and found to have PE and DVT. The patient is currently still admitted to rehabilitation facility in [place]. He presents today in a wheelchair. Objective: RightR knee- Incision well approximated No warmth, erythema, or drainage from operative site 5-80 ROM Able to perform straight leg raise Neurovascular intact distally No evidence of DVT Assessment/plan: S/P R TKA- Prineo kept intact. Advised patient to continue physical therapy, focusing on terminal extension as well as anticoagulation. Educated patient on signs of infection including warmth, erythema, or foul smelling drainage from operative site. Advised to not soak in any pools, hot tubs or bathtubs at this time. He will return to clinic in 4 weeks with radiographs unless sooner indicated. documented in this encounter Plan of Treatment Upcoming Encounters Date Type Department Care Team (Late st Contact Info) Description 06/18/2025 12:40 PM EDT Office Visit Medical Office Building [facility] [address] [facility], [address] [place] [address] Leon Anne MD [address] [facility] [address] [place] [address] 07/31/2025 12:20 PM EST Office Visit [facility] [address] [place] [address] Saroj Anderson MD [address] [place] [address] documented as of this encounter Goals Goal Patient Goal Type Associated Problems Recent Progress Patient-Stated? Author Autogenerat ed Goal Care Plan Autogenerated Problem No Kallie Villa documented as of this encounter Results * XR Knee Right 1 or 2 Views (03/17/2025 11:07 AM EDT) Anatomical Region Laterality Modality Lower Extremities, Knee Right Digital Radiography Impressions 03/17/2025 12:57 PM EDT Resolving arthroplasty changes without significant acute abnormality identified. CRITICAL RESULT: No. COMMUNICATION: Per this written report. Drafted by Lon Stevenson MD on 03/17/2025 11:40 AM Final report signed by Lon Stevenson MD on 03/17/2025 12:57 PM Narrative 03/17/2025 12:57 PM EDT CLINICAL INDICATION: Right knee pain. TECHNIQUE: XR KNEE RIGHT 1 OR 2 VIEWS COMPARISON: Right knee radiographs dated 01/28/2025. FINDINGS: Right: Right total knee prosthesis. No fracture, subluxation, or dislocation. Interval resolution of arthroplasty changes. No significant joint effusion. Left: Severe medial and mild lateral femorotibial compartment osteoarthritis. Procedure Note Lon Stevenson MD - 03/17/2025 CLINICAL INDICATION: Right knee pain. TECHNIQUE: XR KNEE RIGHT 1 OR 2 VIEWS COMPARISON: Right knee radiographs dated 01/28/2025. FINDINGS: Right: Right total knee prosthesis. No fracture, subluxation, ordislocation. Interval resolution of arthroplasty changes. No significantjoint effusion. Left: Severe medial and mild lateral femorotibial compartmentosteoarthritis. IMPRESSION: Resolving arthroplasty changes without significant acute abnormalityidentified. CRITICAL RESULT: No. COMMUNICATION: Per this written report. Drafted by Lon Stevenson MD on 03/17/2025 11:40 AM Final report signed by Lon Stevenson MD on 03/17/2025 12:57 PM Liya CORONA IMG XR PROCEDURES Final Resul t documented in this encounter Visit Diagnoses Diagnosis S/P total knee arthroplasty, right- Primary S/P total knee arthroplasty, right documented in this encounter Additional Health Concerns Active Problems Noted Date Diagnosed Date Autogenerated Problem 01/21/2025 Assessment Noted Time PHQ-9 Depression Total Score: 0 10/02/19 25 1:29 PM EST A fall risk assessment has been complete d for the patient 02/12/2025 10:22 AM EDT A Body Mass Index follow-up plan has been documented for the patient 02/12/2025 10:59 AM EDT documented as of this encounter Care Teams C Engineer Relationship Specialty Start Date End Date Nader Fields MD [address] [place] [address] [address] [place] [address] PCP - General 06/16/24 documented as of this encounter
--- OUTSIDE RECORDS SUMMARY | 2025-02-12 10:20 | XMS_ITS | Encounter Summary ---
Author Organization [facility] Address [address] [place] [address] Care Team Providers Care Stock Broker Supervisor Name Role Phone Nader Fields MD Primary Care Provider Reason for Visit * Reason Comments Post-op Follow-up Encounter Details Date Type Department Care Team ([facility] st Contact Info) Description 02/12/2025 10:20 AM EDT Office Visit Medical Office Building Surgery Spine & Joint [address] [facility], [address] [place] [address] Liya Soto PA [address] [facility] [address] [place] [address] S/P total knee arthroplasty, right [...] time in the past 12 m [facility], were you homeless or living in a chcf (including now)? No 02/03/2025 Utilities Answer Date Recorded In the past 12 months has th e [employer], gas, oil, or water company threatened to [...] currently still admitted to rehabilitation facility in [place]. He presents today in a wheelchair. Objective: [...] Pav CC Head, Neck & Respiratory [address] [place] [address] Vince Neumann MD [address] [facility] [address] [place] [phone] 06/18/2025 12:40 PM EDT Office Visit Medical Office Building Surgery Spine & Joint [address] [facility], [address] [place] [address] Leon Anne MD [address] [facility] [address] [place] [address] 07/31/2025 12:20 PM EST Office Visit [facility] [address] [place] [address] Saroj Anderson MD [address] [place] [address] documented as of this encounter [...] Stevenson MD on 03/17/2025 12:57 PM Liya Mistichuck CJ IMG XR PROCEDURES Final Resul t documented [...] documented as of this encounter Care Teams Stock Broker Supervisor Relationship Specialty Start Date End Date Nader Fields MD [address] [place] [address] [address] [place] [address] PCP - General 06/16/24 documented as of this encounter
--- OUTSIDE RECORDS SUMMARY | 2025-03-17 10:57 | XMS_ITS | Encounter Summary ---
Author Organization [facility] Address [address] [place] [address] Care Team Providers Care Real Estate Acquisition Analyst Name Role Phone Nader Fields MD Primary Care Provider [phone] Encounter Details Date Type Department Care Team (Latest Contact Info) Description 03/17/2025 10:57 AM EDT - 03/17/2025 11:59 PM EDT Hospital Encounter Medical Office Building Radiology [address] [place] [address] S/P total knee arthroplasty, right Discharge Disposition: Home or Self Care Social [...] time in the past 12 m [facility], were you homeless or living in a group home (including now)? No 02/03/2025 Utilities Answer Date Recorded In the past 12 months has th e [employer], gas, oil, or water company threatened to shut off services in your home? No 02/03/2025 Sex and Gender Information Value Date Recorded Sex Assigned at Not on file Legal Sex Male 10:03 AM EDT Gender Identity Not on file Sexual Orientation Not on file documented as of this encounter Medications at Time of Discharge acetaminophen (Tylenol) 325 MG tablet Take 2 tablets by mouth every 6 hours as needed for pain. Under [place] law, monthly prescriptions (30 days) can be refilled at 25 days and three-month prescriptions (90 days) at 80 days. Please contact the insurance company with questions if refills are denied. 02/07/2025 apixaban (Eliquis) 5 MG tablet Take 1 tablet by mouth 2 times a day. 120 tablet 03/16/2025 cyanocobalamin 1000 MCG tablet Take 1 tablet by mouth daily. famotidine (Pepcid) 20 MG tablet Take 1 tablet by mouth daily. gabapentin (Neurontin) 100 MG capsule Take 1 capsule by mouth 3 times a day. If this medication makes you drowsy you may take it only at bedtime 30 capsule 01/29/2025 lisinopril 20 MG tablet Take 1 tablet by mouth daily. 02/08/2025 metFORMIN (Glucophage) 1000 MG tablet Take 1 tablet by mouth 2 times a day with meals. 04/21/2024 methocarbamol (Robaxin) 750 MG tablet Take 1 tablet by mouth every 6 hours. 02/07/2025 naloxone (Narcan) 4 mg/0.1 mL nasal spray 1. Give 1 spray in nostril for no/slow breathing or cannot wake after opioid use 2. Call 911 3. Repeat in other nostril if symptoms continue 1 each 01/29/2025 nystatin (Mycostatin) 756185 UNIT/GM powder Apply to skin folds twice daily 60 g 01/29/2025 nystatin (Mycostatin) 138647 UNIT/GM powder Apply to skin folds twice daily. 60 g 02/07/2025 pioglitazone (Actos) 15 MG tablet Take 1 tablet by mouth daily. 06/09/2024 polyethylene glycol (Miralax) 17 g packet Take 17 g by mouth 2 times a day. 02/07/2025 pravastatin (Pravachol) 20 MG tablet Take 1 tablet by mouth daily. 04/21/2024 semaglutide 8 MG/3ML solution pen-injector Inject 2 mg under the skin 1 time per week. senna (Senokot) 8.6 MG tablet Take 1 tablet by mouth nightly. 02/07/2025 documented as of this encounter Plan of Treatment Upcoming Encounters Date Type Department Care Team (Late st Contact Info) Description 03/25/2025 8:30 AM EDT Office Visit [facility] Head[facility] Neck [facility] Respiratory [address] [place] [address] Vince Neumann MD [address] [facility] [address] [place] [address] 06/18/2025 12:40 PM EDT Office Visit Medical Office Building Surgery Spine & Joint [address] [facility], [address] [place] [address] Leon Anne MD [address] [place] [address] 07/31/2025 12:20 PM EST Office Visit [facility] [address] [place] [address] Saroj Anderson MD [address] [place] [address] documented as of this encounter Goals Goal Patient Goal Type Associated Problems Recent Progress Patient-Stated? Author Autogenerat ed Goal Care Plan Autogenerated Problem No Kallie Villa documented as of this encounter Procedures Procedure Name Priority Date/Time Associated Diagnosis Comments XR KNEE RIGHT 1 OR 2 VIEWS Routine 03/17/2025 11:07 AM EDT S/P total knee arthroplasty, right documented in this encounter Results * XR Knee Right [...] Stevenson MD on 03/17/2025 12:57 PM Liya Mrzljak CJ IMG XR PROCEDURES Final Resul t documented in this encounter Visit Diagnoses Diagnosis S/P total knee arthroplasty, right documented in this encounter Additional Health Concerns Active Problems Noted Date Diagnosed Date Autogenerated Problem 01/21/2025 Assessment Noted Time PHQ-9 Depression Total Score: 0 10/02/19 25 1:29 PM EST A fall risk assessment has been complete d for the patient 03/17/2025 11:58 AM EDT A Body Mass Index follow-up plan has been documented for the patient 03/17/2025 12:26 PM EDT documented as of this encounter Care Teams Real Estate Acquisition Analyst Relationship Specialty Start Date End Date Nader Fields MD [address] [place] [address] [address] [place] [address] PCP - General 06/16/24 documented as of this encounter
--- OUTSIDE RECORDS SUMMARY | 2025-03-17 10:57 | XMS_ITS | Encounter Summary ---
Author Organization [facility] Address [address] [place] [address] Care Team Providers Care Music Publicist Name Role Phone Nader Fields MD Primary Care Provider [phone] Encounter Details Date Type Department Care Team (Latest Contact Info) Description 03/17/2025 10:57 AM EDT - 03/17/2025 11:59 PM EDT Hospital Encounter Medical Office Building Radiology [address] [place] [address] S/P total knee arthroplasty, right [...] any time in the past 12 m [facility], were you homeless or living in a mcfp (including now)? No 02/03/2025 Utilities Answer Date Recorded In the past 12 months has th e [employer], gas, oil, or water company threatened to [...] 6 hours as needed for pain. Under [place] law, monthly prescriptions (30 days) can be [...] symptoms continue 1 each 01/29/2025 nystatin (Mycostatin) 134711 UNIT/GM powder Apply to skin folds twice daily 60 g 01/29/2025 nystatin (Mycostatin) 136971 UNIT/GM powder Apply to skin folds twice [...] [facility], [address] [place] [address] Leon Anne MD [address] [facility] 201 [place] [address] 07/31/2025 12:20 PM EST Office Visit [facility] [address] [place] [phone] Saroj Anderson MD [address] [place] [phone] documented as of this encounter Goals [...] documented as of this encounter Care Teams Music Publicist Relationship Specialty Start Date End Date Nader Fields MD [address] [place] [address] [address] [place] [address] PCP - General 06/16/24 documented as of this encounter
--- OUTSIDE RECORDS SUMMARY | 2025-03-17 11:30 | XMS_ITS | Encounter Summary ---
Author Organization [facility] Address [address] [place] [address] Care Team Providers Care Tents Assembler Name Role Phone Nader Fields MD Primary Care Provider Reason for Visit * Reason Comments Post-op Encounter Details Date Type Department Care Team ([facility] st Contact Info) Description 03/17/2025 11:30 AM EDT Office Visit Medical Office Building Surgery Spine & Joint [address] [facility], [address] [place] [address] Leon Anne MD [address] [place] [address] [place] [address] S/P total knee arthroplasty, right [...] any time in the past 12 m [facility], were you homeless or living in [...] Building Surgery Spine & Joint [address] [facility], [address] [place] [address] Leon Anne MD [address] [facility] 201 [place] [address] 07/31/2025 12:20 PM EST Office Visit [facility] [address] [place] [address] Saroj Anderson MD [address] [place] [phone] documented as of this encounter Goals [...] documented as of this encounter Care Teams Tents Assembler Relationship Specialty Start Date End Date Nader Fields MD [address] [place] [address] [address] [place] [address] PCP - General 06/16/24 documented as of this encounter
--- OUTSIDE RECORDS SUMMARY | 2025-03-17 11:30 | XMS_ITS | Encounter Summary ---
Author Organization [facility] Address [address] [place] [address] Care Team Providers Care Propeller Inspector Name Role Phone Nader Fields MD Primary Care Provider [phone] Reason for Visit * Reason Comments Post-op Encounter Details Date Type Department Care Team ([facility] st Contact Info) Description 03/17/2025 11:30 AM EDT Office Visit Medical Office Building Surgery Spine & Joint [address] [facility], [address] [place] [address] Leon Anne MD [address] [place] [address] S/P total knee arthroplasty, right [...] time in the past 12 m [facility], were you homeless or living in a usp (including now)? No 02/03/2025 Utilities Answer Date [...] Pav CC Head, Neck & Respiratory [address] [facility], 2nd [place] [address] Vince Neumann MD [address] [facility] [address] [place] [address] 06/18/2025 12:40 PM EDT Office Visit Medical Office Building Surgery Spine & Joint [address] [facility], [address] [place] [address] Leon Anen MD [address] [facility] 201 [place] [address] 07/31/2025 12:20 PM EST Office Visit [facility] [address] [place] [address] Saroj Anderson MD [address] [place] [phone] documented as of this encounter Goals Goal [...] documented as of this encounter Care Teams Propeller Inspector Relationship Specialty Start Date End Date Nader Fields MD [address] [place] [address] [address] [place] [id number] PCP - General 06/16/24 documented as of this encounter
[2025-03-18] VITALS (17 sets, daily range): BP systolic 79–131; BP diastolic 42–72; PULSE 74–104; RESP 16–28; TEMP 36.4–36.9; O2SAT 88–99; BMI 36.6; BMI 37.5
--- NOTE | 2025-03-18 15:42 | ECG_ITS ---
APPROVED REPORT Exam: Resting ECG HR:94 bpm ECG Measurements Heart Rate 94 AXES FL 236 P 37 QRSd 134 QRS 59 QT 370 T -1 QTc 421 Conclusion SINUS RHYTHM WITH FIRST DEGREE AV BLOCK INTRAVENTRICULAR CONDUCTION DELAY [130+ ms QRS DURATION] ABNORMAL ECG UNCONFIRMED REPORT Electronically signed by : SEBASTIEN BENDER, 03/19/2025 06:15:07
--- OUTSIDE RECORDS SUMMARY | 2025-03-18 15:43 | XMS_ITS | Encounter Summary ---
Author Organization [facility] Address [address] [place] [address] Care Team Providers Care Well Point Pumping Supervisor Name Role Phone Nader Fields MD Primary Care Provider [phone] Reason for Visit * Reason Onset Date Comments HCN - Patient Message 12/26/2024 Encounter Details Date Type Department Care Team ([facility] st Contact Info) Description 12/26/2024 Telephone Medical Office Building Surgery Spine & Joint [address] [facility], [address] [place] [address] Leon Anne MD [address] [facility] [address] [place] [address] HCN - Patient Message Social History Tobacco Use Types Packs/Day Years [...] on file documented as of this encounter Miscellaneous Notes * Telephone Encounter - Kallie Villa 12/29/2024 10:31 AM EDT Spoke with pt.'s . His rash is almost gone. He will be rescheduled for 03/04/25. The [employer] will be need to be picked up from them and rescheduled for closer to surgery * Telephone Encounter - Montserrat Mehta - 12/26/2024 2:55 PM EDT Clinical Concern/Question Reason for Call: Pt is requesting call back to reschedule surgery please call to advise Best contact number:[phone] Optimal time of day to reach caller: ANYTIME Additional comments/information from caller: None Note: Please do not reply to this message. Follow-up communication and further actions as a result of this message need to be communicated with the patient directly, if the patient is not active onMyChart. If the patient is active on MyChart, they will receive notification of the communication/outcome via [employer]. documented in this encounter Plan of Treatment Upcoming Encounters Date Type Department Care Team (Late st Contact Info) Description 06/18/2025 12:40 PM EDT Office Visit Medical Office Building Surgery Spine & Joint [address] [address] [facility], [address] [place] [address] Leon Anne MD [address] [facility] [address] [place] [address] 07/31/2025 12:20 PM EST Office Visit [facility] [address] [place] [address] Saroj Anderson MD [address] [place] [address] documented as of this encounter Visit Diagnoses Not on filedocumented in this encounter Additional Health Concerns Assessment Noted Time PHQ-9 Depression Total Score: 0 10/02/19 1:29 PM EST A fall risk assessment has been complete d for the patient 12/12/2024 12:15 PM EDT A Body Mass Index follow-up plan has been documented for the patient 12/12/2024 1:16 PM EDT documented as of this encounter Care Teams Well Point Pumping Supervisor Relationship Specialty Start Date End Date Nader Fields MD [address] [place] [address] [address] [place] [address] PCP - General 06/16/24 documented as of this encounter
--- OUTSIDE RECORDS SUMMARY | 2025-03-18 15:43 | XMS_ITS | Encounter Summary ---
Author Organization [facility] Address [address] [place] [address] Care Team Providers Care Job Printer Apprentice Name Role Phone Nader Fields MD Primary Care Provider Encounter Details Date Type Department Care Team (Late Contact Info) Description 01/20/2025 Orders Only Medical Office Building Surgery Spine & Joint [address], [address] [place] [address] Leon Anne MD [address] [place] [address] Preop testing (Primary Dx) Social History Tobacco Use Types [...] on file documented as of this encounter Plan of Treatment Upcoming Encounters Date Type Department Care Team (Late Contact Info) Description 06/18/2025 12:40 PM EDT Office Visit Medical Office Building Surgery Spine & Joint [address], [address] [place] [address] Leon Anne MD [address] [facility] [address] [place] [address] 07/31/2025 12:20 PM EST Office Visit [facility] [address] [facility] [address] [place] [address] Saroj Anderson MD [address] [place] [address] documented as of this encounter Goals Goal Patient Goal Type Associated Problems Recent Progress Patient-Stated? Author Autogenerat ed Goal Care Plan Autogenerated Problem No Kallie Villa documented as of this encounter Visit Diagnoses Diagnosis Preop testing- Primary Unspecified pre-operative examination documented in this encounter Additional Health Concerns [...] documented as of this encounter Care Teams Job Printer Apprentice Relationship Specialty Start Date End Date Nader Fields MD [address] [facility] [address] [place] [address] PCP - General 06/16/24 documented as of this encounter
--- OUTSIDE RECORDS SUMMARY | 2025-03-18 15:44 | XMS_ITS | Encounter Summary ---
Author Organization [facility] Address [address] [place] [address] Care Team Providers Care Java J2Ee Architect Name Role Phone Nader Fields MD Primary Care Provider [phone] Encounter Details Date Type Department Care Team (Latest Contact Info) Description 01/23/2025 Travel Social History Tobacco Use Types Packs/Day Years [...] Building Surgery Spine & Joint [address] [facility], [address] [place] [address] Leon Anne MD [address] [place] [address] 07/31/2025 12:20 PM EST Office Visit [facility] [address] [place] [address] Saroj Anderson MD [address] [place] [address] documented as of this encounter Goals Goal Patient Goal Type Associated Problems Recent Progress Patient-Stated? Author Autogenerat ed Goal Care Plan Autogenerated Problem No Kallie Villa documented as of this encounter Visit Diagnoses Not on filedocumented in this encounter Additional Health Concerns Active [...] documented as of this encounter Care Teams Java J2Ee Architect Relationship Specialty Start Date End Date Nader Fields MD [address] [facility] [address] [place] [address] PCP - General 06/16/24 documented as of this encounter
--- OUTSIDE RECORDS SUMMARY | 2025-03-18 15:44 | XMS_ITS | Encounter Summary ---
Author Organization [facility] Address [address] [place] [address] Care Team Providers Care Respiratory Therapy Technician Name Role Phone Nader Fields MD Primary Care Provider [phone] Reason for Visit * Reason Onset Date Comments HCN - Patient Message 01/30/2025 Encounter Details Date Type Department Care Team ([facility] st Contact Info) Description 01/30/2025 Telephone Medical Office Building Surgery Spine & Joint [address] [facility], [address] [place] [address] Leon Anne MD [address] [facility] [address] [place] [address] HCN - Patient Message Social [...] any time in the past 12 m [facility], were you homeless or living in a senior care (including now)? No 02/03/2025 Utilities Answer Date [...] encounter Miscellaneous Notes * Telephone Encounter - Lauren Haas RN - 02/02/2025 11:56 AM EDT PT called to notify you that it takes 3 people to get him up and is total care. Informed her I just spoke with the this morning and stated he is doing better, but did not tell me that. We both agree patient should return to [facility] for evaluation. I will notify [employer] not to deliver today. * Telephone Encounter - Lauren Haas RN - 02/02/2025 10:57 AM EDT Patient's OOB today and feeling slight better. He has walked some, but is tired. He did not go to the ER. He is eating and drinking better. Instructed to focus on ROM exercises. [employer] is being delivered today. HH PT is also coming today. * Telephone Encounter - Lauren Haas RN - 02/02/2025 10:06 AM EDT Attempted to call, VM left to call direct line. * Telephone Encounter - Lela Barnett RN - 01/30/2025 4:12 PM EDT Called patient's . RTK 01/28/25. She states yesterday at the hospital the patient was up, walking and sitting in a chair. Patient's family is having a hard time getting him up, it took 5 of them. 2 men and 3 women. Patient is not able to walk. Per patient, he cannot walk because he cannot put weight on his foot. Patient states he feels to weak to hold himself up on his walker. Denies falls or injury. Patient wanting to know if he should goto rehab. Informed patient to go to [facility] ED since he is unable to walk without a lot of assistance and feels too weak to walk. Informed patient to have family assist him in the car or call ambulance if needed. States understanding. states they will make a decision and go tonight or tomorrow morning. Patient passed blood clot in urine this morning and has had dark urine since. * Telephone Encounter - Praveena Mcbride - 01/30/2025 3:45 PM EDT Clinical Concern/Question Reason for Call: Dr Anne patient Jenny is calling. He had surgery on 01/28/25. She states that it is taking five people to get him out of the bed. He does have some pain as well. He is staying on schedule with his medication. He also passed a big blood clot, but since is able to urinate. She is wanting to know if he needs to go back to [facility]. She is requesting a call back. Best contact number: Jenny Montoya () Optimal time of day to reach caller: ANYTIME Additional comments/information from caller: None Note: Please do not reply to this message. Follow-up communication and further actions as a result of this message need to be communicated with the patient directly, if the patient is not active onMyChart. If the patient is active on MyChart, they will receive notification of the communication/outcome via [employer]. documented in this encounter Plan of Treatment Upcoming Encounters Date Type Department Care Team ([facility] st Contact Info) Description 06/18/2025 12:40 PM EDT Office Visit Medical Office Building Surgery Spine & Joint [address] [facility], [address] [place] [address] Leon Anne MD [address] [facility] [address] [place] [address] 07/31/2025 12:20 PM EST Office Visit [facility] [address] [place] [address] Saroj Anderson MD [address] [place] [address] documented as of this encounter [...] documented as of this encounter Care Teams Respiratory Therapy Technician Relationship Specialty Start Date End Date Nader Fields MD [address] [place] [address] [address] [place] [address] PCP - General 06/16/24 documented as of this encounter
--- OUTSIDE RECORDS SUMMARY | 2025-03-18 15:44 | XMS_ITS | Encounter Summary ---
Author Organization [facility] Address [address] [place] [address] Care Team Providers Care Radiology Physician Assistant Name Role Phone Nader Fields MD Primary Care Provider Encounter Details Date Type Department Care Team (Late Contact Info) Description 04/03/2024 Orders Only External Location [address] [place] [address] Kevin Zheng, DO [address] [place] [address] Social History Tobacco Use Types Packs/Day Years Used Date Smoking Tobacco: Never Assessed Sex and Gender Information Value Date Recorded Sex Assigned at Not on file Legal Sex Male 10:03 AM EDT Gender Identity Not on file Sexual Orientation Not on file documented as of this encounter Plan of Treatment Upcoming Encounters Date Type Department Care Team (Late Contact Info) Description 06/18/2025 12:40 PM EDT Office Visit Medical Office Building Surgery Spine & Joint [address] [facility], [address] [place] [address] Leon Anne MD [address] [place] [address] 07/31/2025 12:20 PM EST Office Visit [address] [place] [address] Saroj Anderson MD [address] [place] [address] documented as of this encounter Procedures Procedure Name Priority Date/Time Associated Diagnosis Comments XR OUTSIDE IMAGES 04/03/2024 8:59 AM EDT documented in this encounter Results * XR OUTSIDE IMAGES (04/03/2024 8:59 AM EDT) Anatomical Region Laterality Modality Radiographic Irish ging 04/03/2024 8:59 AM EDT Gene J Zheng DO IMG XR PROCEDURES Final Result documented in this encounter Visit Diagnoses Not on filedocumented in this encounter Additional Health Concerns Infection Onset Date Last Indicated Resolved Time Respiratory Rule-Out 02/03/2025 02/03/2025 025 1:34 PM EDT documented as of this encounter Care Teams Radiology Physician Assistant Relationship Specialty Start Date End Date Nader Fields MD [address] [facility] [address] [place] [address] PCP - General 06/16/24 documented as of this encounter
--- OUTSIDE RECORDS SUMMARY | 2025-03-18 15:44 | XMS_ITS | Encounter Summary ---
Author Organization [facility] Address [address] [place] [address] Care Team Providers Care Emergency Dept Tech Name Role Phone Nader Fields MD Primary Care Provider [phone] Encounter Details Date Type Department Care Team (Latest Contact Info) Description 01/28/2025 Travel Social History Tobacco Use Types Packs/Day [...] of Assessment Author No Risk Indicated 01/28/2025 8:00 PM EDT Tessie Chavarria * Question Answer Date of Assessment Author 1. Wish to be (Past 1 Month) No 025 8:00 PM EDT Tesise Herrera 2. Non-Specific Active Suici fatuma Thoughts (Past 1 Month) No 01/28/2025 8:00 PM EDT Pasquale Herrera 6. Suicidal Behavior (Lifetime) No 8:00 PM EDT JavierTessie byrd documented as of this encounter Plan of Treatment Upcoming Encounters Date Type Department Care Team (Late st Contact Info) Description 06/18/2025 12:40 PM EDT Office Visit Medical Office Building Surgery Spine & Joint [address] [facility], [address] [place] [address] Leon Anne MD [address] [place] [address] 07/31/2025 12:20 PM EST Office Visit [facility] [address] [place] [address] Saroj Anderson MD [address] [place] [address] documented as of this encounter [...] documented as of this encounter Care Teams Emergency Dept Tech Relationship Specialty Start Date End Date Nader Fields MD [address] [facility] [address] [place] [address] PCP - General 06/16/24 documented as of this encounter
--- OUTSIDE RECORDS SUMMARY | 2025-03-18 15:44 | XMS_ITS | Encounter Summary ---
Author Organization [facility] Address [address] [place] [address] Care Team Providers Care Line Maintenance Technician Name Role Phone Nader Fields MD Primary Care Provider [phone] Encounter Details Date Type Department Care Team (Latest Contact Info) Description 02/02/2025 Travel Social History Tobacco Use Types Packs/Day [...] any time in the past 12 m [facility], were you homeless or living in a [place] health care facility (including now)? No 02/03/2025 Utilities Answer Date Recorded In the past 12 months has th e [employer], gas, oil, or water [employer] threatened to shut off services in your home? No 02/03/2025 Sex and Gender Information Value Date Recorded Sex Assigned at Not on file Legal Sex Male 10:03 AM EDT Gender Identity Not on file Sexual Orientation Not on file documented as of this encounter Functional Status * Calculated C-SSRS Risk Score (Lifetime/Recent) Answer Date of Assessment Author No Risk Indicated 02/02/2025 8:00 PM EDT Douglas Caputo RN * Question Answer Date of Assessment Author 1. Wish to be (Past 1 Month) No 025 8:00 PM EDT Douglas Caputo RN 2. Non-Specific Active Suici fatuma Thoughts (Past 1 Month) No 02/02/2025 8:00 PM EDT Daniel Caputo RN 6. Suicidal Behavior (Lifetime) No 8:00 PM EDT Douglas Caputo RN documented as of this encounter Plan of Treatment Upcoming Encounters Date Type Department Care Team (Late st Contact Info) Description 06/18/2025 12:40 PM EDT Office Visit Medical Office Building Surgery Spine & Joint [address] [facility], [address] [place] [address] Leon Anne MD [address] [facility] [address] [place] [address] 07/31/2025 12:20 PM EST Office Visit [facility] [address] [facility] [address] [place] [address] Saroj Anderson MD [address] [place] [address] documented as of this encounter [...] plan has been documented for the patient 02/07/2025 2:53 PM EDT documented as of this encounter Care Teams Line Maintenance Technician Relationship Specialty Start Date End Date Nader Fields MD [address] [place] [address] PCP - General 06/16/24 documented as of this encounter
--- OUTSIDE RECORDS SUMMARY | 2025-03-18 15:44 | XMS_ITS | Encounter Summary ---
Author Organization [facility] Address [address] [place] [address] Care Team Providers Care Ice Cream Dipper Name Role Phone Nader Fields MD Primary Care Provider [phone] Encounter Details Date Type Department Care Team (Late Contact Info) Description 01/21/2025 Orders Only Medical Office Building Surgery Spine & Joint [address] [place] [address] Leon Anne MD [address] [place] [address] Preop testing (Primary Dx) Social [...] Joint [address], [address] [place] [address] Leon Anne MD [address] [facility] [address] [place] [address] 07/31/2025 12:20 PM EST Office Visit [facility] [address] [facility] [address] [place] [address] Saroj Anderson MD [address] [place] [address] Scheduled Orders Name Type Priority Associated Diagnoses Orde r Schedule Albumin, Plasma Lab Routine Preop testing Expected: 01/21/2025 (Approximate), Expires: 07/23/2026 Basic Metabolic Panel, Plasma Lab Routine Preop testing Expected: 01/21/2025 (Approximate), Expires: 07/23/2026 CBC W/O Differential Lab Routine Preop testing Expected: 01/21/2025 (Approximate), Expires: 07/23/2026 documented as of this encounter Goals Goal [...] documented as of this encounter Care Teams Ice Cream Dipper Relationship Specialty Start Date End Date Nader Fields MD [address] [facility] [address] [place] [address] PCP - General 06/16/24 documented as of this encounter
--- OUTSIDE RECORDS SUMMARY | 2025-03-18 15:44 | XMS_ITS | Encounter Summary ---
Author Organization [facility] Address [address] [place] [address] Care Team Providers Care Real Estate Recruiter Name Role Phone Nader Fields MD Primary Care Provider [phone] Encounter Details Date Type Department Care Team ([facility] st Contact Info) Description 01/23/2025 Telephone Medical Office Building Surgery Spine & Joint [address] [facility], [address] [place] [address] Leon Anne MD [address] [place] [address] Social History Tobacco Use Types Packs/Day Years [...] Telephone Encounter - Lauren Haas RN - 01/23/2025 2:37 PM EDT Discussed medications, what to hold and take the morning of surgery. stated understanding. documented in this encounter Plan of Treatment Upcoming Encounters Date Type Department Care Team (Late st Contact Info) Description 06/18/2025 12:40 PM EDT Office Visit Medical Office Building Surgery Spine & Joint [address] [facility], [address] [place] [address] Leon Anne MD [address] [place] [address] 07/31/2025 12:20 PM EST Office Visit [facility] [address] [facility] [address] [place] [address] Saroj Anderson MD [address] [place] [address] documented as of this encounter Goals Goal Patient Goal Type Associated Problems Recent Progress Patient-Stated? Author Autogenerat ed Goal Care Plan Autogenerated Problem No Kallie Villa Kailee documented as of this encounter Visit Diagnoses [...] of this encounter Care Teams Real Estate Recruiter Relationship Specialty Start Date End Date Nader Fields MD [address] [facility] [address] [place] [address] PCP - General 06/16/24 documented as of this encounter
--- OUTSIDE RECORDS SUMMARY | 2025-03-18 15:44 | XMS_ITS | Encounter Summary ---
Author Organization [facility] Address [address] [place] [address] Care Team Providers Care Real Estate Transaction Manager Name Role Phone Nader Fields MD Primary Care Provider [phone] Encounter Details Date Type Department Care Team (Latest Contact Info) Description 02/03/2025 Travel Social History Tobacco Use Types Packs/Day [...] any time in the past 12 m [facility], were you homeless or living in a [place] health care facility (including now)? No 02/03/2025 Utilities Answer Date Recorded In the past 12 months has th e [employer], gas, oil, or water [employer] threatened to shut off services in your home? No 02/03/2025 Sex and Gender Information Value Date Recorded Sex Assigned at Not on file Legal Sex Male 10:03 AM EDT Gender Identity Not on file Sexual Orientation Not on file documented as of this encounter Functional Status * Calculated C-SSRS Risk Score (Lifetime/Recent) Answer Date of Assessment Author No Risk Indicated 02/03/2025 8:00 PM EDT Julio Flores * Question Answer Date of Assessment Author 1. Wish to be (Past 1 Month) No 025 8:00 PM EDT Julio Flores 2. Non-Specific Active Suici fatuma Thoughts (Past 1 Month) No 02/03/2025 8:00 PM EDT Julio Flores 6. Suicidal Behavior (Lifetime) No 8:00 PM EDT Julio Flores documented as of this encounter Plan of Treatment Upcoming Encounters Date Type Department Care Team ([facility] st Contact Info) Description 06/18/2025 12:40 PM EDT Office Visit Medical Office Building Surgery Spine & Joint [address] [facility], [address] [place] [address] Leon Anne MD [address] [facility] [address] [place] [address] 07/31/2025 12:20 PM EST Office Visit [facility] [address] [facility] [address] [place] [address] Saroj Anderson MD [address] [place] [address] documented as of this encounter Goals Goal Patient Goal Type Associated Problems Recent Progress Patient-Stated? Author Autogenerat ed Goal Care Plan Autogenerated Problem No Kallie Villa documented as of this encounter Visit Diagnoses Not on filedocumented in this encounter Additional Health Concerns Active Problems Noted Date Diagnosed Date Autogenerated Problem 01/21/2025 Infection Onset Date Last Indicated Resolved Time Respiratory Rule-Out 02/03/2025 02/03/2025 025 1:34 PM EDT Assessment Noted Time PHQ-9 Depression Total Score: 0 10/02/19 25 1:29 PM EST A fall risk assessment has been complete d for the patient 12/12/2024 12:15 PM EDT A Body Mass Index follow-up plan has been documented for the patient 02/07/2025 2:53 PM EDT documented as of this encounter Care Teams Real Estate Transaction Manager Relationship Specialty Start Date End Date Nader Fields MD [address] [place] [address] PCP - General 06/16/24 documented as of this encounter
--- OUTSIDE RECORDS SUMMARY | 2025-03-18 15:45 | XMS_ITS | Encounter Summary ---
Author Organization [facility] Address [address] [place] [address] Care Team Providers Care Rail Engineer Name Role Phone Nader Fields MD Primary Care Provider Encounter Details Date Type Department Care Team (Late Contact Info) Description 04/03/2024 Orders Only External Location [address] [place] [address] Kevin Zheng, DO [address] [facility], [address] [place] [address] Leon Anne MD [address] [place] [address] 07/31/2025 12:20 PM EST Office Visit [facility] [address] [place] [address] Saroj Anderson MD [address] [place] [address] documented as of this encounter Procedures Procedure [...] documented as of this encounter Care Teams Rail Engineer Relationship Specialty Start Date End Date Nader Fields MD [address] [facility] [address] [place] [address] PCP - General 06/16/24 documented as of this encounter
--- OUTSIDE RECORDS SUMMARY | 2025-03-18 15:45 | XMS_ITS | Encounter Summary ---
Author Organization [facility] Address [address] [place] [address] Care Team Providers Care Customer Field Representative Name Role Phone Nader Fields MD Primary Care Provider [phone] Encounter Details Date Type Department Care Team (Latest Contact Info) Description 02/12/2025 Travel Social History Tobacco Use Types Packs/Day [...] any time in the past [address] [facility], were you homeless or living in a retirement (including now)? No 02/03/2025 Utilities Answer Date Recorded In the past 12 months has th e Q[employer], gas, oil, or water [employer] threatened to shut off services in your [...] Joint [address] [facility], [address] [place] [address] Leon Anne MD [address] [facility] [address] [place] [address] 07/31/2025 12:20 PM EST Office Visit [facility] [address] [place] [address] Saroj Anderson MD [address] [place] [id number] documented as of this encounter Goals [...] documented as of this encounter Care Teams Customer Field Representative Relationship Specialty Start Date End Date Nader Fields MD [address] [place] [address] [address] [place] [id number] PCP - General 06/16/24 documented as of this encounter
--- OUTSIDE RECORDS SUMMARY | 2025-03-18 15:45 | XMS_ITS | Encounter Summary ---
Author Organization [facility] Address [address] [place] [address] Care Team Providers Care [employer] [place] Supervisor Name Role Phone Nader Fields MD Primary Care Provider [phone] Reason for Visit * Reason Onset Date Comments HCN - Patient Message 03/09/2025 Encounter Details Date Type Department Care Team ([facility] st Contact Info) Description 03/09/2025 Telephone Medical Office Building Surgery Spine & Joint [address] [facility], [address] [place] [address] Leon Anne MD [address] [facility] [address] [place] [address] HCN - Patient Message Social [...] any time in the past 12 m [facility], were you homeless or living in a fdc (including now)? No 02/03/2025 Utilities Answer Date [...] encounter Miscellaneous Notes * Telephone Encounter - Lorraine Winston RN - 03/10/2025 3:51 PM EDT [facility] will accept * Telephone Encounter - Lorraine Winston RN - 03/10/2025 9:44 AM EDT Sent message to Jas Itzel to see if [facility] could accept. * Telephone Encounter - Jackeline Mora Rubens - 03/09/2025 1:54 PM EDT Clinical Concern/Question Reason for Call: [facility] been [facility] and needs an order for in home PT. She is asking that the clinic reach out to the pt. Best contact number: [phone] (mobile) Optimal time of day to reach caller: ANYTIME Additional comments/information from caller: None Note: Please do not reply to this message. Follow-up communication and further actions as a result of this message need to be communicated with the patient directly, if the patient is not active onMyChart. If the patient is active on MyChart, they will receive notification of the communication/outcome via [employer]. documented in this encounter Plan of Treatment Upcoming Encounters Date Type Department Care Team (Late st Contact Info) Description 06/18/2025 12:40 PM EDT Office Visit Medical Office Building Surgery Spine & Joint [address] [facility], [address] [place] [address] Leno Anne MD [address] [facility] [address] [place] [address] 07/31/2025 12:20 PM EST Office Visit [facility] [address] [place] [address] Saroj Anderson MD [address] [place] [address] documented as of this encounter [...] documented as of this encounter Care Teams [employer] Supervisor Relationship Specialty Start Date End Date Nader Fields MD [address] [place] [address] [address] [place] [address] PCP - General 06/16/24 documented as of this encounter
--- OUTSIDE RECORDS SUMMARY | 2025-03-18 15:45 | XMS_ITS | Clinical Summary ---
Author Organization [facility] Address [address] [place] [address] Care Team Providers Care Cleaner And Dyer Name Role Phone Nader Fields MD Primary Care Provider [phone] Allergies Active Allergy Reactions Criticality Noted Date Comments Tetanus Toxoids Itching Medium 07/06/2017 Medications * This document contains information received from the source organization and may not represent a complete record from that organization. metFORMIN (Glucophage) 1000 MG tablet Take 1 tablet by mouth 2 times a day with meals. 04/21/20 24 Active pioglitazone (Actos) 15 MG tablet Take 1 tablet by mouth daily. 06/09/20 24 Active pravastatin (Pravachol) 20 MG tablet Take 1 tablet by mouth daily. 04/21/20 24 Active cyanocobalamin 1000 MCG tablet Take 1 tablet by mouth daily. Active famotidine (Pepcid) 20 MG tablet Take 1 tablet by mouth daily. Active nystatin (Mycostatin) 526512 UNIT/GM powder Apply to skin folds twice daily 60 g 01/30/20 25 Active gabapentin (Neurontin) 100 MG capsule Take 1 capsule by mouth 3 times a day. If this medication makes you drowsy you may take it only at bedtime 30 capsule 01/30/20 25 Active naloxone (Narcan) 4 mg/0.1 mL nasal spray 1. Give 1 spray in nostril for no/slow breathing or cannot wake after opioid use 2. Call 911 3. Repeat in other nostril if symptoms continue 1 each 01/30/20 Active semaglutide 8 MG/3ML solution pen-injector Inject 2 mg under the skin 1 time per week. Active acetaminophen (Tylenol) 325 MG tablet Take 2 tablets by mouth every 6 hours as needed for pain. Under [place] law, monthly prescriptions (30 days) can be refilled at 25 days and three-month prescriptions (90 days) at 80 days. Please contact the insurance company with questions if refills are denied. 02/08/20 Active amLODIPine (Norvasc) 5 MG tablet Take 1 tablet by mouth daily. 02/09/20 Active methocarbamol (Robaxin) 750 MG tablet Take 1 tablet by mouth every 6 hours. 02/08/20 Active lisinopril 20 MG tablet Take 1 tablet by mouth daily. 02/09/20 Active polyethylene glycol (Miralax) 17 g packet Take 17 g by mouth 2 times a day. 02/08/20 Active senna (Senokot) 8.6 MG tablet Take 1 tablet by mouth nightly. 02/08/20 Active nystatin (Mycostatin) 716372 UNIT/GM powder Apply to skin folds twice daily. 60 g 02/08/20 25 Active gabapentin (Neurontin) 100 MG capsule Take 1 capsule by mouth 3 times a day for 3 days. 9 capsule 02/08/20 Active apixaban (Eliquis) 5 MG tablet Take 1 tablet by mouth 2 times a day. 120 tablet 03/16/20 25 025 Active docusate sodium (Colace) 250 MG capsule Take 1 capsule by mouth 2 times a day. 60 capsule 01/30/20 25 025 aspirin 81 MG chewable tablet Chew 1 tablet daily. 02/09/20 25 025 apixaban (Eliquis) 5 MG tablet Take 2 tablets by mouth 2 times a day for 2 days, THEN 1 tablet 2 times a day. 02/08/20 25 025 Discontinu ed(Reorder ) Active Problems Problem Noted Date Diagnosed Date Single subsegmental pulmonar y embolism without acute cor pulmonale 02/02/2025 Arthritis of right knee 01/28/2025 Class III obesity with body mass index (BMI) of 40.0 or higher 10/23/2024 Unilateral primary osteoarthritis, right knee Encounters * This document contains information received from the source organization and may not represent a complete record from that organization. Date Type Department Care Team Description 03/17/2025 11:30 AM EDT Office Visit Medical Office Building [facility] [address], [address] [place] [address] Leon Anne MD S/P total knee arthroplasty, right (Primary Dx) 03/17/2025 10:57 AM EDT - 03/17/2025 11:59 PM EDT Hospital Encounter Medical Office Building Radiology [address] [place] [address] S/P total knee arthroplasty, right Discharge Disposition: Home or Self Care 03/17/2025 Travel 03/16/2025 Orders Only Medical Office Building [facility] [address], [address] [place] [address] Leon Anne MD 03/13/2025 Telephone Medical Office Building [facility] [address], [address] [place] [address] Leon Anne MD HCN - Patient Message 03/09/2025 Orders Only Medical Office Building [facility] [address], [address] [place] [address] Leon Anne MD S/P total knee arthroplasty, right (Primary Dx) 03/09/2025 Telephone Medical Office Building [facility] [address], [address] [place] [address] Leon Anne MD HCN - Patient Message 02/12/2025 10:20 AM EDT Office Visit Medical Office Building [facility] [address], [address] [place] [address] Liya Soto PA S/P total knee arthroplasty, right (Primary Dx) 02/12/2025 Travel 02/05/2025 Travel 02/03/2025 Travel 02/02/2025 Travel 01/30/2025 Telephone Medical Office Building [facility] [address], [address] [place] [address] Leon Anne MD HCN - Patient Message 01/28/2025 11:40 AM EDT Anesthesia Event [facility] Operating Room [address] [place] [address] Ja Alexandre CRNA Baker, Matthew L, MD 01/28/2025 11:00 AM EDT - 01/28/2025 1:30 PM EDT Surgery [facility] Operating Room [address] [place] [address] Leon Anne MD ARTHROPLASTY, KNEE, TOTAL, USING COMPUTER-ASSISTED NAVIGATION [63603 (CPT )] 01/28/2025 7:52 AM EDT - 01/29/2025 3:31 PM EDT Hospital Encounter [facility] Inpatient [address] [place] [address] Leon Anne MD Arthritis of right knee (Primary Dx) Discharge Disposition: Home or Self Care 01/28/2025 Travel 01/23/2025 Travel 01/23/2025 Telephone Medical Office Building [facility] [address] [facility], [address] [place] [address] Leon Anne MD 01/21/2025 Orders Only Medical Office Building Surgery [facility] [address] [facility], [address] [place] [address] Leon Anne MD Preop testing (Primary Dx) 01/20/2025 Orders Only Medical Office Building [facility] [address] [facility], [address] [place] [address] Leon Anne MD Preop testing (Primary Dx) 12/26/2024 Telephone Medical Office Building [facility] [address] [facility], [address] [place] [address] Leon Anne MD HCN - Patient Message 12/17/2024 2:00 PM EDT Pre-Admission Testing [facility] Anesthesia [address] [phone] Preop examination (Primary Dx) 12/17/2024 Travel from Last 3 Months Family History Medical History Relation Name Comments Anesthesia problems Neg Hx Malig Hyperthermia Neg Hx Social History Tobacco Use Types Packs/Day Years [...] any time in the past 12 [facility], were you homeless or living in a [facility] (including now)? No 02/03/2025 Utilities Answer Date Recorded In the past 12 months has [employer] electric, gas, oil, or water company threatened to shut off services in your home? No 02/03/2025 Sex and Gender Information Value Date Recorded Sex Assigned at Not on file Legal Sex Male 10:03 AM EDT Gender Identity Not on file Sexual Orientation Not on file Last Filed Vital Signs Vital Sign Reading Time Taken Comments Blood Pressure 72/51 03/17/2025 11:58 AM EDT Pulse 97 03/17/2025 11:58 AM EDT Temperature 36.8 C (98.3 F) 02/07/2025 11:23 AM EDT Respiratory Rate 16 02/07/2025 11:23 AM EDT Oxygen Saturation 95% 03/17/2025 11:58 AM EDT Inhaled Oxygen Concentration - - Weight 136 kg (299 lb 13.2 oz) 03/17/2025 11:58 AM EDT Height 182.9 cm (6') 03/17/2025 11:58 AM EDT Body Mass Index 40.66 03/17/2025 11:58 AM EDT Plan of Treatment Upcoming Encounters Date Type Department Care Team (Late st Contact Info) Description 06/18/2025 12:40 PM EDT Office Visit Medical Office Building Surgery [facility] [address] [facility], [address] [place] [address] Leon Anne MD [address] [facility] [address] [place] [address] 07/31/2025 12:20 PM EST Office Visit [facility] [address] [place] [address] Saroj Anderson MD [address] [place] [phone] Health Maintenance Due Date Last Done Comments [facility]-Hepatitis C Screening 1950 [facility]-Medicare Annual Wellness (AWV) 1950 [facility]-/Child/Adol SDOH Screenings 1950 Diabetes: Dental Exam 1960 [facility]-DTaP,Tdap,and Td Vaccines (1 - Tdap) 1969 [facility]-Pneumococcal Vaccine: 50+ Years (1 of 2 - PCV) 1969 CT Colonography 1995 Colonoscopy 1995 FIT-DNA 1995 FIT 1995 FOBT 1995 Sigmoidoscopy 1995 [facility]-Colorectal Cancer Screening 1995 [facility]-Zoster Vaccines (1 of 2) 2000 [facility]-RSV Vaccine: 60+ Years or (1 - Risk 60-74 years 1-dose series) 2010 TGT-[id number]-34 Vaccine ( season) 2024 03/15/2022, 07/27/2021, 12/01/2020, Additional history exists [facility]-Influenza Vaccine (Season Ended) 2025 [facility]-Diabetes: Hemoglobin A1C 06/16/2025 12/17/2024 [facility]- SDOH Screenings 08/06/2025 [facility]-Adult SDOH Screenings 08/06/2025 02/03/2025 [facility]-Depression Screening 12/12/2025 12/12/2024, 010 05/2025 [facility]-Obesity Intervention Completed 025, 02/12/2025, 02/02/2025, Additional history exists HPV Vaccines Aged Out No longer eligi ble based on patient's age to complete this topic [facility]-HIB Vaccines Aged Out No longer e ligible based on patient's age to complete this topic [facility]-Hepatitis A Vaccines Aged Out No longer eligible based on patient's age to complete this topic [facility]-IPV Vaccines Aged Out No longer e ligible based on patient's age to complete this topic [facility]-Rotavirus Vaccines Aged Out No lo nger eligible based on patient's age to complete this topic Goals Goal Patient Goal Type Associated Problems Recent Progress Patient-Stated? Author Autogenerat ed Goal Care Plan Autogenerated Problem No [employer] Implanted Type Area Detective Bowling Alley Device Identifier Shelf Expiration Date Model / Serial / Lot Cement Palacos Mv - [id number] Implanted:Qty: 3 on 01/28/2025 by Leon Anne MD at [facility] Right: Knee [id number] 03/23/2029 [id number] / / [id number] Chg [employer] R - [id number] Implanted:Qty: 1 on 01/28/2025 by Leon Anne MD at [facility] Right: Knee [employer]-[id number] 07/21/2034 [id number] / / [id number] Chg Patella Gii Oval Resurfaci - [id number] Implanted:Qty: 1 on 01/28/2025 by Leon Anne MD at [facility] Right: Knee [employer]-[id number] 10/11/2032 [id number] / / [id number] Jrny Ii Bcs Femoral Oxin Rt Sz - [id number] Implanted:Qty: 1 on 01/28/2025 by Leon Anne MD at [facility] Right: Knee [employer]-[id number] 07/06/2034 [id number] / / [id number] Jrny Ii Bcs Xlpe Art Isrt Sz 7 - [id number] Implanted:Qty: 1 on 01/28/2025 by Leon Anne MD at [facility] Right: Knee [employer]-[id number] 07/08/2032 [id number] / / [id number] Procedures Procedure Name Priority Date/Time Associated Diagnosis Comments XR KNEE RIGHT 1 OR 2 VIEWS Routine 03/17/2025 11:07 AM EDT S/P total knee arthroplasty, right POCT GLUCOSE METER UNSOLICITED RESULTS Routine 02/07/2025 12:19 PM EDT POCT GLUCOSE METER UNSOLICITED RESULTS Routine 02/07/2025 7:44 AM EDT POCT GLUCOSE METER UNSOLICITED RESULTS Routine 02/06/2025 7:23 PM EDT POCT GLUCOSE METER UNSOLICITED RESULTS Routine 02/06/2025 5:23 PM EDT POCT GLUCOSE METER UNSOLICITED RESULTS Routine 02/06/2025 12:24 PM EDT OXYGEN THERAPY Routine 02/06/2025 8:00 AM EDT POCT GLUCOSE METER UNSOLICITED RESULTS Routine 02/06/2025 7:42 AM EDT OXYGEN THERAPY Routine 02/05/2025 8:00 PM EDT POCT GLUCOSE METER UNSOLICITED RESULTS Routine 02/05/2025 7:16 PM EDT POCT GLUCOSE METER UNSOLICITED RESULTS Routine 02/05/2025 4:31 PM EDT POCT GLUCOSE METER UNSOLICITED RESULTS Routine 02/05/2025 11:56 AM EDT XR CHEST 1 VIEW Routine 02/05/2025 10:52 AM EDT POCT GLUCOSE METER UNSOLICITED RESULTS Routine 02/05/2025 8:02 AM EDT OXYGEN THERAPY Routine 02/05/2025 8:00 AM EDT POCT GLUCOSE METER UNSOLICITED RESULTS Routine 02/04/2025 8:09 PM EDT OXYGEN THERAPY Routine 02/04/2025 8:00 PM EDT POCT GLUCOSE METER UNSOLICITED RESULTS Routine 02/04/2025 4:56 PM EDT POCT GLUCOSE METER UNSOLICITED RESULTS Routine 02/04/2025 12:12 PM EDT OXYGEN THERAPY Routine 02/04/2025 8:00 AM EDT POCT GLUCOSE METER UNSOLICITED RESULTS Routine 02/04/2025 7:33 AM EDT MAGNESIUM, PLASMA Add-On 02/04/2025 3:1 4 AM EDT CBC WITH AUTO DIFFERENTIAL Routine 02/04/2025 3:14 AM EDT BASIC METABOLIC PANEL, PLASMA Routine 02/04/2025 3:14 AM EDT POCT GLUCOSE METER UNSOLICITED RESULTS Routine 02/03/2025 8:23 PM EDT OXYGEN THERAPY Routine 02/03/2025 8:00 PM EDT XR ABDOMEN 1 VIEW Routine 02/03/2025 6:0 1 PM EDT POCT GLUCOSE METER UNSOLICITED RESULTS Routine 02/03/2025 4:49 PM EDT POCT GLUCOSE METER UNSOLICITED RESULTS Routine 02/03/2025 12:01 PM EDT BLOOD CULTURE (AEROBIC/ANAEROBIC SET) Routine 02/03/2025 10:01 AM EDT VAS US VENOUS DUPLEX LOWER EXTREMITY BILATERAL STAT 02/03/2025 9:55 AM EDT BLOOD CULTURE (AEROBIC/ANAEROBIC SET) Routine 02/03/2025 9:53 AM EDT ECHO, ADULT TRANSTHORACIC COMPLETE W/ CONTRAST STAT 02/03/2025 9:42 AM EDT NASOPHARYNGEAL RESPIRATORY PANEL Routine 02/03/2025 8:29 AM EDT BLOOD GAS PANEL, ARTERIAL Routine 02/03/2025 8:05 AM EDT POCT GLUCOSE METER UNSOLICITED RESULTS Routine 02/03/2025 8:01 AM EDT OXYGEN THERAPY Routine 02/03/2025 8:00 AM EDT MAGNESIUM, PLASMA Routine 02/03/2025 3:4 6 AM EDT COMPREHENSIVE METABOLIC PANEL, PLASMA Routine 02/03/2025 3:46 AM EDT CBC WITH AUTO DIFFERENTIAL Routine 02/03/2025 3:46 AM EDT POCT GLUCOSE METER UNSOLICITED RESULTS Routine 02/02/2025 8:17 PM EDT OXYGEN THERAPY Routine 02/02/2025 8:00 PM EDT OXYGEN THERAPY Routine 02/02/2025 7:43 PM EDT POCT GLUCOSE METER UNSOLICITED RESULTS Routine 02/02/2025 7:[address] ANGIO PULMONARY EMBOLISM STAT 02/02/2025 5:37 PM EDT N-TERMINAL PROBNP, PLASMA Add-On 02/02/2025 4:18 PM EDT TROPONIN T, HIGH SENSITIVITY, 2 HOUR, PLASMA Timed 02/02/2025 4:18 PM EDT XR CHEST 1 VIEW STAT 02/02/2025 2:56 PM EDT BLOOD CULTURE (AEROBIC/ANAEROBIC SET) STAT 02/02/2025 2:29 PM EDT POCT GLUCOSE METER UNSOLICITED RESULTS Routine 02/02/2025 2:27 PM EDT ECG ADULT STAT 02/02/2025 2:10 PM EDT TROPONIN T, HIGH SENSITIVITY, 0 HOUR, PLASMA, REFLEX TO 2 HOUR STAT 02/02/2025 2:10 PM EDT MAGNESIUM, PLASMA STAT 02/02/2025 2:1 0 PM EDT SEDIMENTATION RATE, AUTOMATED STAT 02/02/2025 2:10 PM EDT C-REACTIVE PROTEIN, PLASMA STAT 02/02/2025 2:10 PM EDT CBC WITH AUTO DIFFERENTIAL STAT 02/02/2025 2:10 PM EDT COMPREHENSIVE METABOLIC PANEL, PLASMA STAT 02/02/2025 2:10 PM EDT BACTERIAL ID GRAM POSITIVE Routine 02/02/2025 2:10 PM EDT BLOOD CULTURE (AEROBIC/ANAEROBIC SET) STAT 02/02/2025 2:10 PM EDT POCT GLUCOSE METER UNSOLICITED RESULTS Routine 01/29/2025 11:37 AM EDT POCT GLUCOSE METER UNSOLICITED RESULTS Routine 01/29/2025 7:51 AM EDT BASIC METABOLIC PANEL, PLASMA Routine 01/29/2025 1:49 AM EDT CBC W/O DIFFERENTIAL Routine 01/29/2025 1:49 AM EDT POCT GLUCOSE METER UNSOLICITED RESULTS Routine 01/28/2025 9:05 PM EDT POCT GLUCOSE METER UNSOLICITED RESULTS Routine 01/28/2025 4:57 PM EDT XR KNEE RIGHT 1 OR 2 VIEWS Routine 01/28/2025 2:34 PM EDT POCT GLUCOSE METER UNSOLICITED RESULTS Routine 01/28/2025 2:10 PM EDT PB ANESTHESIA PLACEHOLDER Routine 01/28/2025 11:54 AM EDT IN AN ELECTIVE ENDOTRACHEAL AIRWAY Routine 01/28/2025 11:54 AM EDT IN TOTAL KNEE ARTHROPLASTY 01/28/2025 11:27 AM EDT Unilateral primary osteoarthritis, right knee POCT GLUCOSE METER UNSOLICITED RESULTS Routine 01/28/2025 8:35 AM EDT CBC W/O DIFFERENTIAL Routine 12/17/2024 2:49 PM EDT Unilateral primary osteoarthritis, right knee Chronic pain of right knee BASIC METABOLIC PANEL, PLASMA Routine 12/17/2024 2:49 PM EDT Unilateral primary osteoarthritis, right knee Chronic pain of right knee ALBUMIN, PLASMA Routine 12/17/2024 2:49 PM EDT Unilateral primary osteoarthritis, right knee Chronic pain of right knee HEMOGLOBIN A1C Routine 12/17/2024 2:49 PM EDT Unilateral primary osteoarthritis, right knee Chronic pain of right knee ECG ADULT Routine 12/17/2024 1:47 PM EDT Preop examination from Last 3 Months Results * XR Knee Right 1 or 2 Views (03/17/2025 11:07 AM EDT) Only the most recent of2 resultswithin the time period is included. Anatomical Region Laterality Modality Lower Extremities, Knee [...] Lon Stevenson MD on 03/17/2025 12:57 PM us Liya zlchuck PA IMG XR PROCEDURES Final Resul t * (ABNORMAL) POCT glucose meter (02/07/2025 12:19 PM EDT) Only the most recent of27 resultswithin the time period is included. POCT Glucose 169(H) 74 - 99 mg/dL 02/07/2025 12:22 PM EDT [facility] Comment:Accuracy of a glucos e result obtained from a capillary whole blood specimen relies upon adequate, non-compromised capillary blood flow. If the capillary glucose result is not consistent with the patient's clinical signs and symptoms, glucose testing should be repeated with either an arterial or venous sample on the glucometer or sent to the main labortory for testing. Comment 02/07/2025 12:22 PM EDT [facility] Special Warfare Combatant Crewman ID Mohinder Verdin 02/07/2025 12:22 PM EDT [facility] Device ID [id number] 02/07/2025 12:22 PM EDT [facility] Specimen Type POC Capillary 02/07/2025 12:22 PM EDT Layer LAB Blood Capillary blood specimen / Unknown 02/07/2025 12:19 PM EDT 02/07/2025 12:22 PM EDT Nithya Doyle DO LAB POINT OF CAR E TEST DOCKED DEVICE UNSOLICITED RESULTS Final Result Performing Organization Address City/State/[facility] Co de Phone Number [facility]ALTH[facility]ARE [facility] [address] [place] [id number] * XR Chest 1 View (02/05/2025 10:52 AM EDT) Only the most recent of2 resultswithin the time period is included. Anatomical Region Laterality Modality Chest Digital Radiogra phy Impressions 02/05/2025 3:39 PM EDT Mildly increased lung volumes with similar basilar opacities which may represent atelectasis and/or airspace disease. CRITICAL RESULT: No. COMMUNICATION: Per this written report. Preliminary report signed by Lorena Arnett DO on 02/05/2025 2:01 PM By electronically signing this report, I, the attending physician, attest that I have personally reviewed the images/data for the above examination(s) and agree with the final edited report. Drafted by Lorena Arnett DO on 02/05/2025 1:59 PM Final report signed by Thom Kingston MD on 02/05/2025 3:39 PM Narrative 02/05/2025 3:39 PM EDT CLINICAL INDICATION: Persistent hypoxia TECHNIQUE: XR CHEST 1 VIEW COMPARISON: February 02, 2025. FINDINGS: Stable cardiac silhouette and mediastinal contours. Mildly increased lung volumes. Similar left basilar opacities. No pleural effusion or pneumothorax. Procedure Note Thom Kingston MD - 02/05/2025 CLINICAL INDICATION: Persistent hypoxia TECHNIQUE: XR CHEST 1 VIEW COMPARISON: February 02, 2025. FINDINGS: Stable cardiac silhouette and mediastinal contours. Mildly increased lungvolumes. Similar left basilar opacities. No pleural effusion orpneumothorax. IMPRESSION: Mildly increased lung volumes with similar basilar opacities which mayrepresent atelectasis and/or airspace disease. CRITICAL RESULT: No. COMMUNICATION: Per this written report. Preliminary report signed by Lorena Arnett DO on 02/05/2025 2:01 PM By electronically signing this report, I, the attending physician, attestthat I have personally reviewed the images/data for the aboveexamination(s) and agree with the final edited report. Drafted by Lorena Arnett DO on 02/05/2025 1:59 PM Final report signed by Thom Kingston MD on 02/05/2025 3:39 PM Nithyara Doyle DO IMG XR PROCEDURES Final Result * (ABNORMAL) CBC and Differential (02/04/2025 3:14 AM EDT) Only the most recent of3 resultswithin the time period is included. WBC Count 7.98 3.70 - 10.30 10*3/uL LAB HEMATOLOGY METHOD 02/04/2025 3:32 AM EDT [facility] RBC Count 3.48(L) 4.60 - 6.10 10*6/uL LAB HEMATOLOGY METHOD 02/04/2025 3:32 AM EDT [facility] HGB 9.9(L) 13.7 - 17.5 g/dL LAB HEMATOLOGY METHOD 02/04/2025 3:32 AM EDT [facility] HCT 30.7(L) 40.0 - 51.0 % LAB HEMATOLOGY METHOD 02/04/2025 3:32 AM EDT [facility] Platelet Count 356 155 - 369 10*3/uL LAB HEMATOLOGY METHOD 02/04/2025 3:32 AM EDT [facility] MCV 88 79 - 98 fL LAB HEMATOLOGY METHOD 02/04/2025 3:32 AM EDT [facility] MCH 28.4 26.0 - 32.0 pg LAB HEMATOLOGY METHOD 02/04/2025 3:32 AM EDT [facility] MCHC 32.2 30.7 - 35.5 g/dL LAB HEMATOLOGY METHOD 02/04/2025 3:32 AM EDT [facility] RDW 13.0 11.5 - 14.5 % LAB HEMATOLOGY METHOD 02/04/2025 3:32 AM EDT [facility] MPV 8.7(L) 8.8 - 12.5 fL LAB HEMATOLOGY METHOD 02/04/2025 3:32 AM EDT [facility] nRBC 0.0 <=0.0 per 100 WBCs LAB HEMATOLOGY METHOD 02/04/2025 3:32 AM EDT [facility] Differential Type Automated LAB HEMATOLOGY METHOD 02/04/2025 3:32 AM EDT [facility] Neutrophils % 58 % LAB HEMATOLOGY METHOD 02/04/2025 3:32 AM EDT [facility] Lymphocytes % 20 % LAB HEMATOLOGY METHOD 02/04/2025 3:32 AM EDT [facility] Monocytes % 14 % LAB HEMATOLOGY METHOD 02/04/2025 3:32 AM EDT [facility] Eosinophils % 6 % LAB HEMATOLOGY METHOD 02/04/2025 3:32 AM EDT [facility] Basophils % 1 % LAB HEMATOLOGY METHOD 02/04/2025 3:32 AM EDT [facility] Immature Granulocytes % 1 % LAB HEMATOLOGY METHOD 02/04/2025 3:32 AM EDT [facility] Neutrophils Absolute 4.72 1.60 - 6.10 10*3/uL LAB HEMATOLOGY METHOD 02/04/2025 3:32 AM EDT [facility] Lymphocytes Absolute 1.57 1.20 - 3.90 10*3/uL LAB HEMATOLOGY METHOD 02/04/2025 3:32 AM EDT [facility] Monocytes Absolute 1.09(H) 0.30 - 0.90 10*3/uL LAB HEMATOLOGY METHOD 02/04/2025 3:32 AM EDT [facility] Eosinophils Absolute 0.51(H) 0.00 - 0.50 10*3/uL LAB HEMATOLOGY METHOD 02/04/2025 3:32 AM EDT [facility] Basophils Absolute 0.04 0.00 - 0.10 10*3/uL LAB HEMATOLOGY METHOD 02/04/2025 3:32 AM EDT [facility] Immature Granulocytes Absolute 0.05 0.00 - 0.06 10*3/uL LAB HEMATOLOGY METHOD 02/04/2025 3:32 AM EDT [facility] Blood Venous blood specimen / Unknown Venipuncture / Unknown 02/04/2025 3:14 AM EDT 02/04/2025 3:26 AM EDT Narrative [facility] - 02/04/2025 3:32 AM EDT Therapeutic decision making should be based on absolute values, rather than percentages. [employer] LAB BLOOD ORDERABLES Fin al Result Performing Organization Address City/[facility]/ZIP Co de Phone Number [facility] [address] [place] [address] * Magnesium (02/04/2025 3:14 AM EDT) Only the most recent of3 resultswithin the time period is included. Magnesium, Plasma 1.9 1.9 - 2.4 mg/dL 02/04/2025 9:14 AM EDT [facility] Blood Venous blood specimen / Unknown Venipuncture / Unknown 02/04/2025 3:14 AM EDT 02/04/2025 3:23 AM EDT [employer] LAB BLOOD ORDERABLES Fin al Result [facility] [address] [place] [address] * (ABNORMAL) Basic metabolic panel (02/04/2025 3:14 AM EDT) Only the most recent of3 resultswithin the time period is included. [facility] Glucose, Plasma 138(H) 74 - 99 mg/dL 02/04/2025 3:52 AM EDT [facility] BUN, Plasma 32(H) 8 - 23 mg/dL 02/04/2025 3:52 AM EDT [facility] Creatinine, Plasma 1.42(H) 0.70 - 1.20 mg/dL 02/04/2025 3:52 AM EDT [facility] BUN/Creatinine Ratio 23 02/04/2025 3:52 AM EDT [facility] Sodium, Plasma 136 136 - 145 mmol/L 02/04/2025 3:52 AM EDT [facility] Potassium, Plasma 3.9 3.6 - 4.9 mmol/L 02/04/2025 3:52 AM EDT [facility] Chloride, Plasma 98 97 - 107 mmol/L 02/04/2025 3:52 AM EDT [facility] CO2, Plasma 25 22 - 29 mmol/L 02/04/2025 3:52 AM EDT [facility] Anion Gap 13 6 - 16 mmol/L 02/04/2025 3:52 AM EDT [facility] Total Calcium, Plasma 9.1 8.9 - 10.2 mg/dL 02/04/2025 3:52 AM EDT [facility] eGFRcr 51.9 mL/min/1.7 3m*2 02/04/2025 3:52 AM EDT [facility] Comment:Reported eGFRcr in m L/min/1.73m2 is based the CKD-EPI 2020 equation that does not use a race coefficient. Blood Venous blood specimen / Unknown Venipuncture / Unknown 02/04/2025 3:14 AM EDT 02/04/2025 3:23 AM EDT us Nithya Doyle DO LAB BLOOD ORDERABLES Fin al Result [facility] [address] [place] [address] * XR Abdomen 1 View (02/03/2025 6:01 PM EDT) Anatomical Region Laterality Modality Body Digital Radiogra phy Impressions 02/03/2025 6:15 PM EDT Nonobstructive bowel gas pattern. Moderate stool burden in the ascending and transverse colon. CRITICAL RESULT: No. COMMUNICATION: Per this written report. Drafted by Jeanette Holloway MD on 02/03/2025 6:13 PM Final report signed by Jeanette Holloway MD on 02/03/2025 6:15 PM Narrative 02/03/2025 6:15 PM EDT CLINICAL INDICATION: Constipation TECHNIQUE: XR ABDOMEN 1 VIEW COMPARISON: None. FINDINGS: Contrast within partially distended urinary bladder. Gas and stool throughout the colon with moderate stool burden predominantly within the ascending and transverse colon. No gas-filled dilated small bowel. Procedure Note Jeanette Holloway MD - 02/03/2025 CLINICAL INDICATION: Constipation TECHNIQUE: XR ABDOMEN 1 VIEW COMPARISON: None. FINDINGS: Contrast within partially distended urinary bladder. Gas and stoolthroughout the colon with moderate stool burden predominantly within theascending and transverse colon. No gas-filled dilated small bowel. IMPRESSION: Nonobstructive bowel gas pattern. Moderate stool burden in the ascending and transverse colon. CRITICAL RESULT: No. COMMUNICATION: Per this written report. Drafted by Jeanette Holloway MD on 02/03/2025 6:13 PM Final report signed by Jeanette Holloway MD on 02/03/2025 6:15 PM us Nithya Doyle DO IMG XR PROCEDURES Final Result * Blood Culture (Aerobic/Anaerobet Set) (02/03/2025 10:01 AM EDT) Only the most recent of4 resultswithin the time period is included. Culture No growth at day 5 02/08/2025 12:01 PM EDT [facility] Blood Structure of left hand / Unknown Venipuncture / Unknown 02/03/2025 10:01 AM EDT 02/03/2025 10:16 AM EDT us Nithya Doyle DO LAB MICROBIOLOGY - GENER AL ORDERABLES Final Result [facility] [address] [place] [address] * VAS US Venous Duplex Lower Extremity Bilateral (02/03/2025 9:55 AM EDT) Anatomical Region Laterality Modality Lower Extremities Bilateral Ultrasound Impressions 02/03/2025 10:24 AM EDT Left femoral vein DVT. CRITICAL RESULT: No. COMMUNICATION: Per this written report. Preliminary report signed by Heron Faulkner MD on 02/03/2025 10:01 AM By electronically signing this report, I, the attending physician, attest that I have personally reviewed the images/data for the above examination(s) and I agree with the final edited report. Drafted by Heron Faulkner MD on 02/03/2025 9:58 AM Final report signed by Stephanie Loo MD on 02/03/2025 10:24 AM Narrative 02/03/2025 10:24 AM EDT CLINICAL INDICATION: SOB +/- PE TECHNIQUE: Multiplanar south scale and Doppler vascular sonographic imaging and spectral analysis of the deep veins of bilateral lower extremities, from groin to calf, without and with compression. COMPARISON: None. FINDINGS: The visualized deep veins in the right lower extremity demonstrate flow and are compressible. No evidence of deep venous thrombosis. Incompressible left femoral vein with echogenic internal contents and no significant color flow on Doppler imaging, concerning for DVT. The visualized deep veins in the left lower extremity otherwise demonstrate flow and are compressible. Incidental 4 by 3 x 1.2 cm curvilinear collection in the left popliteal fossa, likely a Mckeon's cyst. Procedure Note Stephanie Loo MD - 02/03/2025 CLINICAL INDICATION: SOB +/- PE TECHNIQUE: Multiplanar south scale and Doppler vascular sonographic imaging andspectral analysis of the deep veins of bilateral lower extremities, fromgroin to calf, without and with compression. COMPARISON: None. FINDINGS: The visualized deep veins in the right lower extremity demonstrate flowand are compressible. No evidence of deep venous thrombosis. Incompressible left femoral vein with echogenic internal contents and nosignificant color flow on Doppler imaging, concerning for DVT. Thevisualized deep veins in the left lower extremity otherwise demonstrateflow and are compressible. Incidental 4 by 3 x 1.2 cm curvilinear collection in the left poplitealfossa, likely a Mckeon's cyst. IMPRESSION: Left femoral vein DVT. CRITICAL RESULT: No. COMMUNICATION: Per this written report. Preliminary report signed by Heron Faulkner MD on 02/03/2025 10:01 AM By electronically signing this report, I, the attending physician, attestthat I have personally reviewed the images/data for the aboveexamination(s) and I agree with the final edited report. Drafted by Heron Faulkner MD on 02/03/2025 9:58 AM Final report signed by Stephanie Loo MD on 02/03/2025 10:24 AM Nithya Doyle DO CV VASCULAR PROCEDURES F inal Result * ECHO, ADULT TRANSTHORACIC COMPLETE W/ CONTRAST (02/03/2025 9:42 AM EDT) Height 180.3 JUICE ISCV Weight 142.9 JUICE ISCV BSA 2.60 m2 JUICE ISCV Ao Root Diam 36 mm JUICE ISCV MV E Vmax 57.6 cm/s JUICE ISCV MV A Vmax 89.6 cm/s JUICE ISCV MV E/A 0.6 cm/s JUICE ISCV LV Lat e' Velocity 11.3 cm/s JUICE ISCV Lat E/e' 5.1 JUICE ISCV LV Sept e' Eran 4.6 cm/s JUICE ISCV Sep E/e' 12.5 JUICE ISCV Avg E/e' 8.8 JUICE ISCV Ao V2 VTI 17.1 cm JUICE ISCV Ao mean PG 2 mmHg JUICE ISCV Ao V2 Vmax 102.0 cm/s JUICE ISCV Ao max PG 4 mmHg JUICE ISCV Ao V2 mean 73.5 cm/s JUICE ISCV RV base 41 mm JUICE ISCV RV s' Eran 17.6 cm/s JUICE ISCV TAPSE 30 mm JUICE ISCV Anatomical Region Laterality Modality Echocardiography Narrative 02/03/2025 10:02 AM EDT Left Ventricle: The left ventricle is normal size. No left ventricular mass or thrombus is seen. The left ventricular systolic function is normal. The LVEF is visually estimated at 60 - 65%. The left ventricular filling pressure is normal. No regional wall motion abnormalities are seen. Right Ventricle: The right ventricle is grossly normal in size. The right ventricular systolic function is grossly normal. Pericardium: No pericardial effusion. There is no recent study available for direct [id number] comparison. Left Ventricle The left ventricle is normal size. No left ventricular mass or thrombus is seen. The left ventricular systolic function is normal. The LVEF is visually estimated at 60 - 65%. The left ventricular filling pressure is normal. No regional wall motion abnormalities are seen. Right Ventricle The right ventricle is grossly normal in size. The right ventricular systolic function is grossly normal. The estimated global right ventricular systolic function based upon the tricuspid annular plane of systolic excursion (TAPSE) is normal (>=17 mm). The estimated global right ventricular systolic function based upon the TDI maximal systolic velocity is normal (>=9.5 cm/s). Unable to estimate the right ventricular systolic pressure (RVSP) due to inadequate TR signal. Left Atrium The left atrium not well visualized. The interatrial septum is not well visualized. Right Atrium The right atrium was not well visualized. IVC/SVC The IVC was not well visualized, and an assumed pressure of 8mmHg was used for calculations. Mitral Valve The mitral valve is grossly normal. There is no mitral regurgitation. There is no mitral stenosis. Tricuspid Valve The tricuspid valve was not well visualized. There is no tricuspid regurgitation. There is no tricuspid stenosis. Aortic Valve The aortic valve was not well visualized due to poor image quality. There is no valvular regurgitation. There is no hemodynamically significant valvular aortic stenosis. Pulmonic Valve The pulmonic valve was not well visualized. Pericardium No pericardial effusion. Great Vessels The aortic root is normal in size. The sinus of Valsalva (aortic root) diameter is 36 mm by leading edge to leading edge method. The main pulmonary artery is not well visualized. Study Details A complete transthoracic echocardiogram using two-dimensional (2D), m-mode, color and spectral flow Doppler imaging was performed. During the study the apical, parasternal, subcostal and suprasternal view was captured. Definity contrast was used during the study. Overall the study quality was poor. Height: 180.3 cm. Weight: 142.9 kg. BSA: 2.60 m2. The heart rhythm during this exam was most suggestive of a sinus rhythm. Study Recommendation There is no recent study available for direct [id number] comparison. Nithya Doyle DO CV ECHO PROCEDURES Final Result * Nasopharyngeal Respiratory Panel (02/03/2025 8:29 AM EDT) Nasopharyngeal Respiratory PCR Interpretation Not Detected for all analytes Not Detected for all analytes 02/03/2025 1:34 PM EDT [facility] Swab Nasopharyngeal structure / Unknown Non-blood Collection / Unknown 02/03/2025 8:29 AM EDT 02/03/2025 8:46 AM EDT Narrative [facility] - 02/03/2025 1:34 PM EDT This assay can detect Adenovirus, Coronavirus, Human Metapneumovirus, Human Rhino/Enterovirus, Influenza A, Influenza A H1, Influenza A H1 2009, Influenza A H3, Influenza B, Parainfluenza Virus 1, Parainfluenza Virus 2, Parainfluenza Virus 3, Parainfluenza Virus 4, Respiratory Syncytial Virus A, Respiratory Syncytial Virus B, Chlamydia pneumoniae, and Mycoplasma pneumoniae. Note: This assay does NOT detect SARS/CoV, novel Coronavirus 2019-nCoV, Bordetella pertussis or Bordetella parapertussis. Nasopharyngeal Respiratory PCR Panel is performed using the [employer] e[employer]lex instrument. This test is FDA approved for use with Nasopharyngeal swabs only. This test is used for clinical purposes. It should not be regarded as investigational or for research. The [facility] Clinical Microbiology Laboratory is certified under the Clinical Laboratory Improvement Amendments of 1988 (CLIA-88) as qualified to perform high complexity clinical laboratory testing. Nithya Doyle DO LAB MICROBIOLOGY - [facility] AL ORDERABLES Final Result [facility] [address] [place] [address] * (ABNORMAL) Blood gas panel, arterial (02/03/2025 8:05 AM EDT) pH, Arterial 7.45(H) 7.31 - 7.42 LAB HEMATOLOGY METHOD 02/03/2025 8:12 AM EDT [facility] pCO2, Arterial 43 32 - 45 mmHg LAB HEMATOLOGY METHOD 02/03/2025 8:12 AM EDT [facility] pO2, Arterial 64(L) >70 mmHg LAB HEMATOLOGY METHOD 02/03/2025 8:12 AM EDT [facility] SO2, Measured, Arterial 93(L) 94 - 98 % LAB HEMATOLOGY METHOD 02/03/2025 8:12 AM EDT [facility] Base Excess, Arterial 5.4(H) -2.0 - 3.0 mmol/L LAB HEMATOLOGY METHOD 02/03/2025 8:12 AM EDT [facility] Bicarbonate, Calculated, Arterial 30(H) 22 - 26 mmol/L LAB HEMATOLOGY METHOD 02/03/2025 8:12 AM EDT [facility] Hematocrit, Whole Blood 29.6(L) 40.0 - 51.0 % LAB HEMATOLOGY METHOD 02/03/2025 8:12 AM EDT [facility] Sodium, Whole Blood 139 136 - 145 mmol/L LAB HEMATOLOGY METHOD 02/03/2025 8:12 AM EDT [facility] Potassium, Whole Blood 3.6 3.6 - 4.9 mmol/L LAB HEMATOLOGY METHOD 02/03/2025 8:12 AM EDT [facility] Chloride, Whole Blood 97 97 - 107 mmol/L LAB HEMATOLOGY METHOD 02/03/2025 8:12 AM EDT [facility] Glucose, Whole Blood 135(H) 74 - 99 mg/dL LAB HEMATOLOGY METHOD 02/03/2025 8:12 AM EDT [facility] Ionized Calcium, Whole Blood 4.7 4.6 - 5.1 mg/dL LAB HEMATOLOGY METHOD 02/03/2025 8:12 AM EDT [facility] Lactate, Arterial, Whole Blood 0.7 0.5 - 1.6 mmol/L LAB HEMATOLOGY METHOD 02/03/2025 8:12 AM EDT [facility] Blood Arterial blood specimen / Unknown Arterial Puncture / Unknown 02/03/2025 8:05 AM EDT 02/03/2025 8:10 AM EDT us Nithya Doyle DO LAB BLOOD ORDERABLES Fin al Result [facility] [address] [place] [id number] * (ABNORMAL) Comprehensive metabolic panel (02/03/2025 3:46 AM EDT) Only the most recent of2 resultswithin the time period is included. Glucose, Plasma 133(H) 74 - 99 mg/dL 02/03/2025 4:26 AM EDT [facility] BUN, Plasma 33(H) 8 - 23 mg/dL [facility] Creatinine, Plasma 1.46(H) 0.70 - 1.20 mg/dL 02/03/2025 4:[facility] BUN/Creatinine Ratio 23 02/03/2025 4:26 AM EDT [facility] Sodium, Plasma 134(L) 136 - 145 mmol/L 02/03/2025 4:26 AM [facility] Potassium, Plasma 3.7 3.6 - 4.9 mmol/L 02/03/2025 4:26 AM [facility] Chloride, Plasma 96(L) 97 - 107 mmol/L 02/03/2025 4:26 AM [facility] CO2, Plasma 25 22 - 29 mmol/L 02/03/2025 4:26 AM [facility] Anion Gap 13 6 - 16 mmol/L 02/03/2025 4:26 AM [facility] Total Calcium, Plasma 9.0 8.9 - 10.2 mg/dL 02/03/2025 4:26 AM [facility] Total Protein 7.1 6.3 - 7.9 g/dL 02/03/2025 4:26 AM [facility] Albumin, Plasma 3.2(L) 3.5 - 5.2 g/dL 02/03/2025 4:26 AM [facility] AST, Plasma 22 10 - 50 U/L 02/03/2025 4:26 AM [facility] ALT, Plasma <5(L) 10 - 50 U/L 02/03/2025 4:26 AM [facility] Alkaline Phosphatase, Plasma 70 40 - 115 U/L 02/03/2025 4:[facility] Total Bilirubin, Plasma 0.3 0.2 - 1.1 mg/dL 02/03/2025 4:26 AM [facility] eGFRcr 50.2 mL/min/1.7 3m*2 02/03/2025 4:26 AM [facility] Comment:Reported eGFRcr in m L/min/1.73m2 is based the CKD-EPI 2020 equation that does not use a race coefficient. Blood Venous blood specimen / Unknown Venipuncture / Unknown 02/03/2025 3:46 AM EDT 02/03/2025 3:59 AM EDT us Nithya Doyle DO LAB BLOOD ORDERABLES Fin al Result [facility] [address] [place] [address] * CT Angio Pulmonary Embolism (02/02/2025 5:37 PM EDT) Anatomical Region Laterality Modality Chest Computed Tomogra phy Impressions 02/02/2025 6:29 PM EDT Small right upper lobe nonocclusive segmental pulmonary embolism. CRITICAL RESULT: No. COMMUNICATION: Concern for small pulmonary embolism was discussed via secure chat with ALESSIO BARAHONA on 02/02/2025 6:04 PM by Heron Faulkner M.D. with acknowledgment of the results . Preliminary report signed by Hreon Faulkner MD on 02/02/2025 6:10 PM By electronically signing this report, I, the attending physician, attest that I have personally reviewed the images/data for the above examination(s) and agree with the final edited report. Drafted by Heron Faulkner MD on 02/02/2025 5:59 PM Final report signed by Antonieta Claudio MD on 02/02/2025 6:29 PM Narrative 02/02/2025 6:29 PM EDT CLINICAL INDICATION: Pulmonary embolism (PE) suspected, high prob TECHNIQUE: Imaging of the chest was performed from thoracic inlet through upper abdomen, using spiral technique, following administration of IV contrast, Omnipaque 350, 100 mL per the pulmonary angiogram protocol. In addition, 3D images were created and reviewed. TOTAL DLP (Dose-Length Product): 681.01 mGy.cm. Please note: The reported value represents the total of one or more individual components during the CT acquisition on this date and at this time, and as such, the same value may appear in more than one CT report depending on the interpreting/reporting physicians. COMPARISON: None. FINDINGS: Pulmonary Arteries/Vessels: Small filling defect in the right upper lobe segmental branches, likely representing a small nonocclusive pulmonary embolism (series 6, image 198 and series 7, image 108). No other filling defects are identified. Right Heart Strain: Multivessel coronary artery calcifications. Reflux of contrast into the superior IVC. No evidence of acute right heart strain. Pleural/Pericardial space: No pneumothorax. No pleural effusions. No pericardial effusion. Lymph Nodes: Subcarinal and left hilar calcifications likely represent sequela of prior granulomatous process. No enlarged lymph nodes within the chest by CT size criteria. Lungs: The central airways are patent. No consolidation. No suspicious pulmonary nodule. Mediastinum: Otherwise unremarkable Chest wall: No chest wall hematoma or contusion. Bones: Multilevel degenerative changes of the thoracic spine. No acute osseous finding. No suspicious lytic or sclerotic osseous lesion. Upper Abdomen: No evidence of acute process within the partially visualized upper abdomen. Procedure Note Antonieta Claudio MD - 02/02/2025 CLINICAL INDICATION: Pulmonary embolism (PE) suspected, high prob TECHNIQUE: Imaging of the chest was performed from thoracic inlet through upperabdomen, using spiral technique, following administration of IV contrast,Omnipaque 350, 100 mL per the pulmonary angiogram protocol. In addition,3D images were created and reviewed. TOTAL DLP (Dose-Length Product): 681.01 mGy.cm. Please note: The reportedvalue represents the total of one or more individual components during theCT acquisition on this date and at this time, and as such, the same valuemay appear in more than one CT report depending on theinterpreting/reporting physicians. COMPARISON: None. FINDINGS: Pulmonary Arteries/Vessels: Small filling defect in the right upper lobesegmental branches, likely representing a small nonocclusive pulmonaryembolism (series 6, image 198 and series 7, image 108). No other fillingdefects are identified. Right Heart Strain: Multivessel coronary artery calcifications. Reflux ofcontrast into the superior IVC. No evidence of acute right heart strain. Pleural/Pericardial space: No pneumothorax. No pleural effusions. Nopericardial effusion. Lymph Nodes: Subcarinal and left hilar calcifications likely representsequela of prior granulomatous process. No enlarged lymph nodes within thechest by CT size criteria. Lungs: The central airways are patent. No consolidation. No suspiciouspulmonary nodule. Mediastinum: Otherwise unremarkable Chest wall: No chest wall hematoma or contusion. Bones: Multilevel degenerative changes of the thoracic spine. No acuteosseous finding. No suspicious lytic or sclerotic osseous lesion. Upper Abdomen: No evidence of acute process within the partiallyvisualized upper abdomen. IMPRESSION: Small right upper lobe nonocclusive segmental pulmonary embolism. CRITICAL RESULT: No. COMMUNICATION: Concern for small pulmonary embolism was discussed via secure chat withALESSIO BARAHONA on 02/02/2025 6:04 PM by Heron Faulkner M.D. withacknowledgment of the results . Preliminary report signed by Heron Faulkner MD on 02/02/2025 6:10 PM By electronically signing this report, I, the attending physician, attestthat I have personally reviewed the images/data for the aboveexamination(s) and agree with the final edited report. Drafted by Heron Faulkner MD on 02/02/2025 5:59 PM Final report signed by Antonieta Claudio MD on 02/02/2025 6:29 PM [address] [facility] IMG CT PROCEDURES Final Resul t * (ABNORMAL) Troponin T, High Sensitivity, 2 Hour, Plasma (02/02/2025 4:18 PM EDT) Troponin T, High Sensitivity, 2 Hour 21(H) <19 ng/L 02/02/2025 4:52 PM EDT [facility] Troponin Delta 3 <10 ng/L 02/02/2025 4:52 PM EDT [facility] Troponin Delta Interpretation Not Significant 02/02/2025 4:52 PM EDT [facility] Comment:Not Significant. No acute change in troponin observed between the baseline and 2 hour samples. Blood Venous blood specimen / Unknown Venipuncture / Unknown 02/02/2025 4:18 PM EDT 02/02/2025 4:28 PM EDT [facility] LAB BLOOD ORDERABLES Final Re sult [facility] [address] [place] [address] * N-Terminal Probnp (02/02/2025 4:18 PM EDT) N-Terminal, PROBNP, Plasma 252 0 - 899 pg/mL 02/02/2025 6:58 PM EDT [facility] Blood Venous blood specimen / Unknown Venipuncture / Unknown 02/02/2025 4:18 PM EDT 02/02/2025 4:28 PM EDT Nithya Doyle DO LAB BLOOD ORDERABLES Fin al Result Performing Organization Address City/[facility]/ZIP Co de Phone Number [facility] [address] [place] [address] * EKG now - STAT (adult) (02/02/2025 2:10 PM EDT) Only the most recent of2 resultswithin the time period is included. Pathologist [facility] EKG DIAGNOSIS CLASS Abnormal MUSE ECG Ventricular Rate 87 BPM MUSE ECG Atrial Rate 87 BPM MUSE ECG IN Interval 244 ms MUSE ECG QRSD Interval 112 ms MUSE ECG QT Interval 364 ms MUSE ECG QTC Interval 438 ms MUSE ECG P Ranger 18 degrees MUSE ECG R Ranger 27 degrees MUSE ECG T Wave Ranger -6 degrees MUSE ECG Diagnosis Sinus rhythm with 1st degree AV block MUSE ECG Diagnosis Incomplete right bundle branch block MUSE ECG Diagnosis Abnormal ECG MUSE ECG Diagnosis MUSE ECG Diagnosis MUSE ECG Diagnosis Confirmed by Dakota Tracey ([id number]) on 02/02/2025 3:30:48 PM MUSE ECG 02/02/2025 2:10 PM EDT 02/02/2025 3:30 PM EDT Alessio Barahona PA ECG ORDERABLES Final Result Performing Organization Address City/[facility] Co de Phone Number MUSE ECG * (ABNORMAL) Troponin now and 120 min (02/02/2025 2:10 PM EDT) Pathologist [facility] Troponin T, High Sensitivity, 0 Hour 24(H) <19 ng/L 02/02/2025 2:54 PM EDT [facility] Blood Venous blood specimen / Unknown Venipuncture / Unknown 02/02/2025 2:10 PM EDT 02/02/2025 2:34 PM EDT us Alessio CORONA LAB BLOOD ORDERABLES Final Re sult [facility] [address] [place] [address] * (ABNORMAL) Bacterial ID Gram Positive (02/02/2025 2:10 PM EDT) Pathologist [facility] Staphylococcus Result Detected( A) Not Detected 02/03/2025 7:22 AM EDT [facility] Comment:Assess if contaminan t or clinically relevant pathogen. Consider clinical stability and immune status of patient. Staphylococcus epidermidis Result Detected( A) Not Detected 02/03/2025 7:22 AM EDT [facility] Comment:Assess if contaminan t or clinically relevant pathogen. Consider clinical stability and immune status of patient. MECA Result Detected( A) Not Detected 02/03/2025 7:22 AM EDT [facility] Blood Venous blood specimen / Unknown Venipuncture / Unknown 02/02/2025 2:10 PM EDT 02/02/2025 2:33 PM EDT Narrative [facility] - 02/03/2025 7:22 AM EDT Analytes include: Bacillus cereus group, Bacillus subtilis group, Corynebacterium, Cutibacterium acnes (P acnes), Enterococcus, Enterococcus faecalis, Enterococcus faecium, Lactobacillus, Listeria, Listeria monocytogenes, Micrococcus, Staphylococcus, Staphylococcus aureus, Staphylococcus epidermidis, Stapylcoccus lugdunesis, Streptococcus, Streptococcus agalactiae, Streptococcus anginosus group, Streptococcus pneumoniae, Streptococcus pyogenes, Godinez gram negative target, Godinez Yenni target and mecA, mecC, Nando and vanB resistance genes. NOTE: A Not Detected result for result for a resistance gene does not indicate susceptibility to antimicrobials by mechanisms other than carrying the resistance genes detected by the BCID-GP assay. . GODINEZ YENNI: Inclusive of Yenni albicans, Yenni glabrata, Pichia kudriavzevii (formerly Yenni krusei) and Yenni parapsilosis only. . GODINEZ GRAM NEGATIVE: Includes but not limited to Acinetobacter, Bacteroides, Enterobacteriaceae, Neisseria, Pseudomonas, Serratia, Stenotrophomonas maltophilia. . Reference Value: Not detected for all analytes tested. Alessio Da Barahona SD LAB MICROBIOLOGY - GENERAL OR DERABLES Final Result Performing Organization Address City/[facility]/ZIP Co de Phone Number [facility] [address] [place] [address] * (ABNORMAL) Sed rate, automated (02/02/2025 2:10 PM EDT) Sedimentation Rate 106(H) <20 mm/hr 2024 3:25 PM EDT [facility] Blood Venous blood specimen / Unknown Venipuncture / Unknown 02/02/2025 2:10 PM EDT 02/02/2025 2:34 PM EDT Alessio Da Barahona SD LAB BLOOD ORDERABLES Final Re sult Performing Organization Address [facility] de Phone Number [facility] [address] [place] [id number] * (ABNORMAL) C-reactive protein (02/02/2025 2:10 PM EDT) CRP, Plasma 288.0(H) <=8.0 mg/L 02/02/2025 2:54 PM EDT [facility] Blood Venous blood specimen / Unknown Venipuncture / Unknown 02/02/2025 2:10 PM EDT 02/02/2025 2:34 PM EDT Narrative [facility] - 02/02/2025 2:54 PM EDT This CRP test is appropriate for assessment of infection, systemic inflammation and/or tissue injury. To assess cardiovascular disease risk order high sensitivity CRP (CRPH). Alessio Da Altacorlinh SD LAB BLOOD ORDERABLES Final Re sult Performing Organization Address [facility] Co de Phone Number [facility] [address] [place] [phone] * (ABNORMAL) CBC (01/29/2025 1:49 AM EDT) Only the most recent of2 resultswithin the time period is included. WBC Count 10.61(H) 3.70 - 10.30 10*3/uL LAB HEMATOLOGY METHOD 01/29/2025 3:20 AM EDT [facility] RBC Count 3.41(L) 4.60 - 6.10 10*6/uL LAB HEMATOLOGY METHOD 01/29/2025 3:20 AM EDT [facility] HGB 9.8(L) 13.7 - 17.5 g/dL LAB HEMATOLOGY METHOD 01/29/2025 3:20 AM EDT [facility] HCT 30.5(L) 40.0 - 51.0 % LAB HEMATOLOGY METHOD 01/29/2025 3:20 AM EDT [facility] Platelet Count 292 155 - 369 10*3/uL LAB HEMATOLOGY METHOD 01/29/2025 3:20 AM EDT [facility] MCV 89 79 - 98 fL LAB HEMATOLOGY METHOD 01/29/2025 3:20 AM EDT [facility] MCH 28.7 26.0 - 32.0 pg LAB HEMATOLOGY METHOD 01/29/2025 3:20 AM EDT [facility] MCHC 32.1 30.7 - 35.5 g/dL LAB HEMATOLOGY METHOD 01/29/2025 3:20 AM EDT [facility] RDW 12.9 11.5 - 14.5 % LAB HEMATOLOGY METHOD 01/29/2025 3:20 AM EDT [facility] MPV 8.8 8.8 - 12.5 fL LAB HEMATOLOGY METHOD 01/29/2025 3:20 AM EDT [facility] nRBC 0.0 <=0.0 per 100 WBCs LAB HEMATOLOGY METHOD 01/29/2025 3:20 AM EDT [facility] Blood Venous blood specimen / Unknown Venipuncture / Unknown 01/29/2025 1:49 AM EDT 01/29/2025 3:12 AM EDT us Miranda Salamanca PSYCHIATRIC AIDE LAB BLOOD ORDERABLES Final Re sult [facility] [address] [place] [phone] * IN AN ELECTIVE ENDOTRACHEAL AIRWAY, PB ANESTHESIA PLACEHOLDER (01/28/2025 11:54 AM EDT) Narrative Ja Alexandre CRNA - 01/28/2025 11:54 AM EDT Ja Alexandre CRNA 01/28/2025 12:04 PM Airway Date/Time: 01/28/2025 11:54 AM Reason: elective Airway not difficult General Information and Staff Patient location during procedure: OR MILLING GENERAL SUPERINTENDENT: Ja Alexandre CRNA Performed: MILLING GENERAL SUPERINTENDENT Patient Condition Indications for airway management: anesthesia [...] Mckeon MD ANESTHESIA ORDERABLES Final R esult * (ABNORMAL) Hemoglobin A1c (12/17/2024 2:49 PM EDT) Hemoglobin A1c 6.2(H) <5.7 % 12/17/2024 7:08 PM EDT [facility] Blood Venous blood specimen / Unknown Venipuncture / Unknown 12/17/2024 2:49 PM EDT 12/17/2024 2:49 PM EDT Narrative [facility] - 12/17/2024 7:08 PM EDT HA1C Interpretive Data: Diagnosis of Diabetes: Diabetic > or = 6.5% Pre-diabetic 5.7 to 6.4% Non-diabetic < or = 5.6% Glycemic Targets for Type I and Type II Diabetics: Non- Adults <7.0% Adults <6.0% Children and Adolescents <7.5% Source: [place] [employer]. Standards of medical care in diabetes,2017. Diabetes Care.2017:40 (suppl 1):S1-S135. HbA1c assay performed by an ion-exchange chromatography method that is certified traceable to the DCCT. 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 Yes I have reviewed the capacity from the link above and, if needed, have updated to appropriate status: Yes * Full Code Date Activated Date Inactivated Comments 01/28/2025 12:07 PM 01/29/2025 5:31 PM Question Answer Comments I have reviewed the capacity from the link above and, if needed, have updated to appropriate status: Yes Care Teams Cleaner And Dyer Relationship Specialty Start Date End Date Nader Fields MD [address] [facility] [address] [place] [address] PCP - General 06/16/24
--- OUTSIDE RECORDS SUMMARY | 2025-03-18 15:45 | XMS_ITS | Encounter Summary ---
Author Organization [facility] Address [address] [place] [address] Care Team Providers Care Strategic Consultant Name Role Phone Nader Fields MD Primary Care Provider [phone] Encounter Details Date Type Department Care Team (Latest Contact Info) Description 03/17/2025 Travel Social History Tobacco Use Types Packs/Day [...] any time in the past 12 m [facility], were you homeless or living in a mcc (including now)? No 02/03/2025 Utilities Answer Date Recorded In the past 12 months has th e [employer], gas, oil, or water [employer] threatened to shut off services in your [...] Joint [address] [facility], [address] [place] [address] Leon Anne MD [address] [facility] [address] [place] [address] 07/31/2025 12:20 PM EST Office Visit [facility] [address] [place] [address] Saroj Anderson MD [address] [place] [phone] documented as of this encounter Goals [...] documented as of this encounter Care Teams Strategic Consultant Relationship Specialty Start Date End Date Nader Fields MD [address] [place] [address] [address] [place] [address] PCP - General 06/16/24 documented as of this encounter
--- OUTSIDE RECORDS SUMMARY | 2025-03-18 15:45 | XMS_ITS | Encounter Summary ---
Author Organization [facility] Address [address] [place] [address] Care Team Providers Care Hris Developer Name Role Phone Nader Fields MD Primary Care Provider [phone] Encounter Details Date Type Department Care Team (Latest Contact Info) Description 02/05/2025 Travel Social History Tobacco Use Types Packs/Day [...] any time in the past 12 m [facility], were you homeless or living in a long term (including now)? No 02/03/2025 Utilities Answer Date Recorded In the past 12 months has th e [employer], gas, oil, or water [employer] threatened to shut off services in your home? No 02/03/2025 Sex and Gender Information Value Date Recorded Sex Assigned at Not on file Legal Sex Male 10:03 AM EDT Gender Identity Not on file Sexual Orientation Not on file documented as of this encounter Functional Status * Calculated C-SSRS Risk Score (Lifetime/Recent) Answer Date of Assessment Author No Risk Indicated 02/05/2025 8:00 PM EDT Douglas Caputo RN * Question Answer Date of Assessment Author 1. Wish to be (Past 1 Month) No 025 8:00 PM EDT Douglas Caputo RN 2. Non-Specific Active Suici fatuma Thoughts (Past 1 Month) No 02/05/2025 8:00 PM EDT Daniel Caputo RN 6. Suicidal Behavior (Lifetime) No 8:00 PM EDT Douglas Caputo RN documented as of this encounter Plan of Treatment Upcoming Encounters Date Type Department Care Team (Late st Contact Info) Description 06/18/2025 12:40 PM EDT Office Visit Medical Office Building Surgery Sp[facility] Joint [address] [facility], [address] [place] [address] Leon Anne MD [address] [facility] [address] [place] [address] 07/31/2025 12:20 PM EST Office Visit [facility] [address] [facility] [address] [place] [address] Saroj Anderson MD [address] [place] [address] documented as of this encounter [...] documented as of this encounter Care Teams Hris Developer Relationship Specialty Start Date End Date Nader Fields MD [address] [place] [address] PCP - General 06/16/24 documented as of this encounter
--- OUTSIDE RECORDS SUMMARY | 2025-03-18 15:45 | XMS_ITS | Encounter Summary ---
Author Organization [facility] Address [address] [place] [address] Care Team Providers Care Tech Ed Teacher Name Role Phone Nader Fields MD Primary Care Provider [phone] Reason for Visit * Reason Onset Date Comments HCN - Patient Message 03/13/2025 Encounter Details Date Type Department Care Team ([facility] st Contact Info) Description 03/13/2025 Telephone Medical Office Building Surgery Spine [facility] [address] [facility], [address] [place] [address] Leon Anne MD [address] [facility] [address] [place] [address] HCN - Patient Message Social [...] were you homeless or living in a half-way (including now)? No 02/03/2025 Utilities Answer Date [...] Telephone Encounter - Lorraine Winston RN - 03/17/2025 11:07 AM EDT Called Marcel with [employer] . Left voicemail giving him an update of Dr. Anne's response and leftmy direct phone number if any further questions * Telephone Encounter - Lela Barnett RN - 03/17/2025 9:11 AM EDT Called patient, answered. Relayed message. States understanding and denies further needs. * Telephone Encounter - Lorraine Winston RN - 03/16/2025 9:26 AM EDT Marcel with returned my call. Gave him orders to have nursing come out to see patient to help withmedications mainly. They had a question about Eliquis. He currently does not have any. It looks like it was discussed with an outside provider to continue 3 months. If it is his PCP, he missed his PCP appointment last week due to transportation this week. Could this be prescribed for him as he is currently only taking an aspirin? also warned that he may have difficulty getting to the appointment tomorrow with Dr. Anne so he wanted to give us a heads up. * Telephone Encounter - Lorraine Winston RN - 03/16/2025 8:46 AM EDT Tried to call Marcel with and did not answer. Voicemail was left to call direct line. * Telephone Encounter - Andi Olivas - 03/13/2025 4:51 PM EDT Clinical Concern/Question Reason for Call: Marcel W/ Ethan is asking to get verbal nursing orders and some concerns hehas on Omid patient. Best contact number: Other: [phone] Optimal time of day to reach caller: ANYTIME Additional comments/information from caller: None Note: Please do not reply to this message. Follow-up communication and further actions as a result of this message need to be communicated with the patient directly, if the patient is not active onMyChart. If the patient is active on MyChart, they will receive notification of the communication/outcome via MyChart. documented in this encounter Plan of Treatment Upcoming Encounters Date Type Department Care Team (Late st Contact Info) Description 06/18/2025 12:40 PM EDT Office Visit Medical Office Building Surgery Sp[facility] [address] [facility], [address] [place] [address] Leon Anne MD [address] [place] [address] 07/31/2025 12:20 PM EST Office Visit [facility] [address] [facility] [address] [place] [address] Saroj Anderson MD [address] [place] [phone] documented as of this encounter Goals [...] documented as of this encounter Care Teams Tech Ed Teacher Relationship Specialty Start Date End Date Nader Fields MD [address] [facility] [address] [place] [address] PCP - General 06/16/24 documented as of this encounter
--- OUTSIDE RECORDS SUMMARY | 2025-03-18 15:45 | XMS_ITS | Encounter Summary ---
Author Organization [facility] Address [address] [place] [address] Care Team Providers Care Cardio Clinician Name Role Phone Nader Fields MD Primary Care Provider [phone] Encounter Details Date Type Department Care Team ([facility] st Contact Info) Description 03/16/2025 Orders Only Medical Office Building Surgery [facility] [address] [facility], [address] [place] [address] Leon Anne MD [address] [place] [address] Social History Tobacco Use Types [...] money to buy more. Never true 02/04/20 Within the past 12 months, t he [...] Surgery Sp[facility] [address] [place] [address] Leon Anne MD [address] [facility] [address] [place] [address] 07/31/2025 12:20 PM EST Office Visit [facility] [address] [place] [phone] Saroj Anderson MD [address] [place] [address] documented as of this encounter Goals Goal Patient Goal Type Associated Problems Recent Progress Patient-Stated? Author Autogenerat ed Goal Care Plan Autogenerated Problem No Daisy Kallie Dugan documented as of this encounter Visit Diagnoses [...] documented as of this encounter Care Teams Cardio Clinician Relationship Specialty Start Date End Date Nader Fields MD [address] [facility] [address] [place] [address] PCP - General 06/16/24 documented as of this encounter
--- OUTSIDE RECORDS SUMMARY | 2025-03-18 15:45 | XMS_ITS | Encounter Summary ---
Author Organization [facility] Address [address] [place] [address] Care Team Providers Care Qa Reviewer Name Role Phone Nader Fields MD Primary Care Provider [phone] Reason for Referral * Home Health (Routine) - Authorized Specialty Diagnoses / Procedures Referred By Jean post Referred To Contact Home Health Services / Orthopaedic Surgery Diagnoses S/P total knee arthroplasty, right Leon Anne MD [address] [facility] [address] [place] [address] Phone: tel: fax: Referral ID Status Reason Start Date Expiration Date Visits Requested Visits Authorized [id number] Authorized Specialty Services Required 03/09/2025 09/08/2026 [id number] Encounter Details Date Type Department Care Team (Late st Contact Info) Description 03/09/2025 Orders Only Medical Office Building Surgery [facility] [address] [place] [address] Leon Anne MD [address] [facility] [address] [place] [address] S/P total knee arthroplasty, right [...] any time in the past 12 m [facility], were you homeless or living in [...] Building Surgery Spine [facility] Joint [address] [facility], [address] [place] [address] Leon Anne MD [address] [place] [address] 07/31/2025 12:20 PM EST Office Visit [facility] [address] [facility] [address] [place] [address] Saroj Anderson MD [address] [place] [address] Scheduled Referrals Name Type Priority Associated Diagnoses Orde r Schedule Home Health Outpatient Referral Routine S/P total knee arthroplasty, right Expected: 03/09/2025 (Approximate), Expires: 09/10/2026 documented as of this encounter Goals Goal [...] documented as of this encounter Care Teams Qa Reviewer Relationship Specialty Start Date End Date Nader Fields MD [address] [place] [address] PCP - General 06/16/24 documented as of this encounter
[2025-03-18] MEDS: LACTATED RINGERS 1000ML 1,000 ML 999 ML IV ×2 (15:57→17:00)
--- NOTE | 2025-03-18 15:57 | ED_ITS ---
Discharge Plan Disposition Patient Disposition: Admitted Condition: Fair Prescriptions Prescriptions: No Action tamsulosin 0.4 mg capsule 0.4 mg PO DAILY triamcinolone acetonide 0.1 % cream 1 applic topical DIRECTED clobetasol 0.05 % solution 1 applic topical ONCE PRN pioglitazone 15 mg tablet See Rx Instructions .ROUTE .COMPLEX Qty: 90 1RF Dose Instruction: TAKE 1 TABLET BY MOUTH ONCE DAILY Rx Instructions: TAKE 1 TABLET BY MOUTH ONCE DAILY famotidine 20 mg tablet See Rx Instructions .ROUTE .COMPLEX Qty: 90 1RF Dose Instruction: TAKE ONE TABLET BY MOUTH EVERY NIGHT AT BEDTIME FOR GI PROTECTION Rx Instructions: TAKE ONE TABLET BY MOUTH EVERY NIGHT AT BEDTIME FOR GI PROTECTION amlodipine 5 mg tablet See Rx Instructions .ROUTE .COMPLEX Qty: 180 1RF Dose Instruction: TAKE 1 TABLET BY MOUTH TWICE DAILY FOR BLOOD PRESSURE Rx Instructions: TAKE 1 TABLET BY MOUTH TWICE DAILY FOR BLOOD PRESSURE Pro Fe 180 mg iron capsule See Rx Instructions .ROUTE .COMPLEX Qty: 90 1RF Dose Instruction: TAKE 1 CAPSULE BY MOUTH ONCE DAILY Rx Instructions: TAKE 1 CAPSULE BY MOUTH ONCE DAILY pravastatin 20 mg tablet See Rx Instructions .ROUTE .COMPLEX Qty: 90 1RF Dose Instruction: TAKE 1 TABLET BY MOUTH AT BEDTIME FOR CHOLESTEROL Rx Instructions: TAKE 1 TABLET BY MOUTH AT BEDTIME FOR CHOLESTEROL metformin 1,000 mg tablet See Rx Instructions .ROUTE .COMPLEX Qty: 180 1RF Dose Instruction: TAKE 1 TABLET BY MOUTH TWICE DAILY WITH MEALS Rx Instructions: TAKE 1 TABLET BY MOUTH TWICE DAILY WITH MEALS furosemide 40 mg tablet See Rx Instructions .ROUTE .COMPLEX Qty: 90 1RF Dose Instruction: TAKE 1 TABLET BY MOUTH ONCE DAILY Rx Instructions: TAKE 1 TABLET BY MOUTH ONCE DAILY mecobalamin (vitamin B12) 1,000 mcg tablet,chewable 1,000 mcg PO DAILY Qty: 90 3RF terbinafine HCl 250 mg tablet See Rx Instructions .ROUTE .COMPLEX Qty: 30 2RF Dose Instruction: TAKE 1 TABLET BY MOUTH ONCE DAILY Rx Instructions: TAKE 1 TABLET BY MOUTH ONCE DAILY nystatin 100,000 unit/gram powder 1 applic topical TID Qty: 60 5RF lisinopril-hydrochlorothiazide 20-25 mg tablet 1 tab PO BID Qty: 180 1RF semaglutide 2 mg/dose (8 mg/3 mL) pen injector 2 mg SQ WEEKLY Qty: 3 2RF Eliquis 5 mg tablet 5 mg PO BID Qty: 60 2RF gabapentin 100 mg capsule 100 mg PO BID Patient Comments: 1 Capsule Oral 3 Times Daily Indication: neuropathy Referrals Follow up/Referrals: Nader Fields MD [Primary Care Provider, Medical] - See instructions Clinical Impressions Clinical Impression: Adult failure to thrive, Acute hypotension, Dehydration, Acute kidney injury superimposed on CKD, Hypomagnesemia, Aspiration into airway, Lymphadenopathy, retroperitoneal, Acute UTI, Acute urinary retention, Hypopharyngeal lesion Print Language Print Language: Estonian Discharge ED Provider: Lauren Long General Adult HPI General Chief complaint: Weakness Stated complaint: low blood pressure, sent by doctor Time Seen by Provider: 03/18/25 15:40 History of Present Illness HPI narrative: This patient is a 74-year-old male with a history of diabetes, CKD, hypertension, hyperlipidemia, iron deficiency anemia, prior DVT on Eliquis presented to the emergency department with concerns for possible dehydration sent by his primary care provider. According to the patient, he has been feeling poorly for quite some time now with very difficult recovery after knee surgery. Patient had a knee replacement 01/28/2025 and states that he had a very difficult time recovering since then. He states that he was unable to walk, so physical therapy sent him to the ED at 02/02/2025 after being sent home from his knee surgery. He was found to have acute respiratory failure with hypoxia secondary to provoked PE and was started on Eliquis, failure to thrive, and general debility. He was discharged home to [facility] 02/07/2025 and was there until about 2-1/2 weeks ago. Since coming home, his states that he was initially doing well, walking himself to the bathroom and doing most of his ADLs with some assistance. She states that he occasionally had to use a bedpan for defecation, but it was very rare. For the last 2 weeks, she notes that he has been very hoarse. He attributes this to intubation when he had the knee surgery, but his states that he was not hoarse until about 2 weeks ago and the surgery was of course the beginning of January. He also notes cough and congestion, nausea and vomiting with inability to tolerate much oral intake at all, and dysuria. His states that he is had very minimal intake and has been very generally weak overall. They went to his primary care provider's office today where he was noted to have very low blood pressure with blood pressure reading 60s over 40s and there was concern for dehydration, so he was sent to the ED for further evaluation and management. He states that overall he just feels very weak and tired. He denies any other current physical complaints Related Data Home Medications ?Medication ?Instructions ?Recorded ?Confirmed triamcinolone acetonide 0.1 % 1 applic topical DIRE CTED 05/15/24 03/18/25 topical cream clobetasol 0.05 % scalp solution 1 applic topical ONCE PRN 08/14/24 03/18/25 tamsulosin 0.4 mg capsule 0.4 mg PO DAILY 11/27/24 gabapentin 100 mg capsule 100 mg PO BID 03/18/2503/18 Previous Rx's ?Medication ?Instructions ?Recorded pioglitazone 15 mg tablet See Rx Instructions .Route 0 06/09/24 .COMPLEX #90 tabs famotidine 20 mg tablet See Rx Instructions .Route 1 .COMPLEX #90 tabs amlodipine 5 mg tablet See Rx Instructions .Route 1 09/24/23 .COMPLEX #180 tabs metformin 1,000 mg tablet See Rx Instructions .Route 0 09/26/24 .COMPLEX #180 tabs polysaccharide iron complex 180 mg See Rx Instructions .Route 09/26/24 iron capsule (Pro Fe) .COMPLEX #90 caps pravastatin 20 mg tablet See Rx Instructions .Route 0 09/26/24 .COMPLEX #90 tabs furosemide 40 mg tablet See Rx Instructions .Route 0 10/09/24 .COMPLEX #90 tabs mecobalamin (vitamin B12) 1,000 1,000 mcg PO DAILY #90 tabs 11/28/24 mcg chewable tablet terbinafine HCl 250 mg tablet See Rx Instructions .Rou te 12/11/24 .COMPLEX #30 tabs nystatin 100,000 unit/gram topical 1 applic topical TI D #60 grams 12/19/24 powder lisinopril 20 1 tab PO BID #180 tabs 01/16 mg-hydrochlorothiazide 25 mg tablet semaglutide 2 mg/dose (8 mg/3 mL) 2 mg (0.75 mL) SQ WE EKLY #3 mL 03/10/25 subcutaneous pen injector apixaban 5 mg tablet (Eliquis) 5 mg PO BID #60 tabs Allergies Allergy/AdvReac Type Severity Reaction Status Date / Time Tetanus Vaccines and Toxoid AdvReac Mild Verified 03/18/25 14:51 [facility] Disclaimer: The information contained in this section may have been updated after the patient was seen, as this information can be updated by other users. Surgical History (Updated 03/18/25 @ 16:16 by Matilde Gamboa RN) S/P total knee replacement Social History Smoking Status: Never smoker alcohol intake: never current occupational status: retired Travel in the last 8 weeks?: None Have you lived/traveled outside US in past 30 days?: No Contact w/someone who lives/traveled outside US past 30 days?: No Exposure to someone with infectious disease in past 14 days?: No Do you have a fever (greater than 100.4 F or 38 C)?: No Have you tested positive for COVID-19?: No Exposed to someone with COVID-19 in past 14 days?: No Do you have a sore throat?: No Do you have a cough?: No Do you have any weakness?: No Do you have any diarrhea?: No Are you experiencing any unusual bleeding?: No Do you have any muscle aches/pain?: No Do you have any abdominal pain?: No Are you experiencing loss of taste or smell?: No Other Medical History Have you received the Pneumonia Vaccine: Yes ROS Obtained: Yes All systems reviewed & no additional complaints except as documented Physical Exam General General appearance: alert and obese Comment: Ill-appearing, diaphoretic, pale Head Head exam: atraumatic and normocephalic Eye Eye exam: Present normal appearance, PERRL and EOMI ENT ENT exam: Present mucous membranes dry, normal external ear exam and other (Very hoarse voice) Neck Neck exam: Present normal inspection, full ROM and trachea midline; Absent tenderness Chest Chest inspection: Present normal inspection and symmetric chest wall rise; Absent tenderness Respiratory Respiratory exam: Present normal lung sounds bilaterally; Absent respiratory distress, wheezes, stridor or accessory muscle use Cardiovascular Cardiovascular exam: Present normal rhythm and tachycardia Abdominal Exam Abdominal exam: Present soft; Absent distention, tenderness, guarding, rebound or rigidity Extremities Exam Extremities exam: Present normal inspection, full ROM, normal capillary refill and other (Right knee incision clean, dry, intact. Knee is nonerythematous, nontender, no significant effusion); Absent tenderness or edema Back Exam Back exam: Present normal inspection and full ROM; Absent tenderness Neurological Exam Neurological exam: Present alert, oriented X3, CN II-XII intact and other (Very generally weak without any focal neurologic deficit); Absent motor sensory deficit Psychiatric Psychiatric exam: Present flat affect Skin Skin exam: Present diaphoresis Medical Decision Making Medical Records Medical records reviewed: Yes I reviewed the patient's medical records. Screening: Per USPSTF and CDC recommendations, given the prevalence of disease in our region, it is our hospital?s policy to screen for HIV and viral Hepatitis for all patients aged 18 and over and those with ongoing risk factors. Terry Inquiry Pt receiving controlled substance: No Vital Signs: 03/18/25 15:39 03/18/25 15:53 03/18/25 15:57 Temperature 97.9 F Temperature Source Oral Pulse Rate 104 H 88 Pulse Rate [Right] 95 H Respiratory Rate 17 28 H Blood Pressure 101/48 L 79/54 L Blood Pressure [Right Arm] 101/48 L Blood Pressure Mean Blood Pressure Mean [Right Arm] 65 Blood Pressure Source [Right Arm] Automatic Cuff 02 Sat by Pulse Oximetry 95 93 L 94 L Oxygen Delivery Method Room Air Oxygen Flow Rate (LPM) 03/18/25 16:00 03/18/25 16:15 03/18/25 16:32 Temperature Temperature Source Pulse Rate 90 83 81 Pulse Rate [Right] Respiratory Rate 22 20 21 Blood Pressure 81/53 L 85/61 L 106/67 L Blood Pressure [Right Arm] Blood Pressure Mean 66 80 Blood Pressure Mean [Right Arm] Blood Pressure Source [Right Arm] 02 Sat by Pulse Oximetry 92 L 96 96 Oxygen Delivery Method Oxygen Flow Rate (LPM) 03/18/25 16:45 03/18/25 17:01 03/18/25 17:16 Temperature Temperature Source Pulse Rate 78 78 80 Pulse Rate [Right] Respiratory Rate 20 18 Blood Pressure 106/64 L 115/60 131/68 Blood Pressure [Right Arm] Blood Pressure Mean 77 74 84 Blood Pressure Mean [Right Arm] Blood Pressure Source [Right Arm] 02 Sat by Pulse Oximetry 98 Oxygen Delivery Method Oxygen Flow Rate (LPM) 03/18/25 17:31 03/18/25 17:46 03/18/25 18:16 Temperature Temperature Source Pulse Rate 74 76 Pulse Rate [Right] Respiratory Rate 18 16 Blood Pressure 125/72 109/64 L 120/67 Blood Pressure [Right Arm] Blood Pressure Mean 81 75 84 Blood Pressure Mean [Right Arm] Blood Pressure Source [Right Arm] 02 Sat by Pulse Oximetry 88 L 89 L Oxygen Delivery Method Room Air Room Air Oxygen Flow Rate (LPM) 03/18/25 18:31 03/18/25 19:00 Temperature Temperature Source Pulse Rate 74 Pulse Rate [Right] Respiratory Rate 19 Blood Pressure 122/66 93/42 L Blood Pressure [Right Arm] Blood Pressure Mean 80 60 Blood Pressure Mean [Right Arm] Blood Pressure Source [Right Arm] 02 Sat by Pulse Oximetry 89 L 99 Oxygen Delivery Method Room Air Nasal Cannula Oxygen Flow Rate (LPM) 2 Lab Data Lab results reviewed: Yes I reviewed the patient's lab results. Lab Results 03/18/25 15:48: WBC 9.0, RBC 4.37 L, Hgb 12.3 L, Hct 38.2 L, MCV 87.4, MCH 28.1, MCHC 32.2, RDW 14.3, Plt Count 449 H, MPV 9.1, Neut % (Auto) 66.8, Lymph % (Auto) 18.9, [place] % (Auto) 11.1 H, Eos % (Auto) 2.4, Baso % (Auto) 0.2, Neut # (Auto) 6.0, Lymph # (Auto) 1.7, [place] # (Auto) 1.0, Eos # (Auto) 0.2, Baso # (Auto) 0.0, PT 12.8 H, INR 1.17 H, APTT 33.0 H, Sodium 134 L, Potassium 4.3, C hloride 92 L, Carbon Dioxide 27, Anion Gap 19.3 H, BUN 45 H, Creatinine 3.30 H, Estimated Creat Clear 34, Estimated GFR 18 L*, Est GFR ( Amer) 22 L, G lucose 154 H, Calcium 10.2, Phosphorus 4.7 H, Magnesium 1.4 L, Total Bilirubin 0.6, AST 20, ALT 12, Alkaline Phosphatase 82, Troponin I < 0.01, NT-Pro-B Natriuret Pep 277 H, Total Protein 8.6 H, Albumin 4.1, Globulin 4.5 H, A lbumin/Globulin Ratio 0.9 L, Lipase 86, TSH 1.49, Thyroxine (T4) 7.3, HCV Ab TRAVIS w/Rflx PCR Qn Negative, HIV Ag/Ab Combo Qual Negative 03/18/25 15:53: VBG pH 7.39, VBG pCO2 41.6, VBG pO2 43.7 H, VBG HCO3 24.7, VBG Total CO2 26.0, VBG O2 Saturation 77.9 H, VBG Base Excess -0.3, VBG Lactic Acid 3.0 H 03/18/25 16:06: SARS-CoV-2 (PCR) Not detected, Influenza A Untype (PCR) Not detected, Influenza Type B (PCR) Not detected 03/18/25 18:45: Urine Color Yellow, Urine Appearance Clear, Urine pH 5.5, Ur Specific [place] 1.015, Urine Protein Negative, Urine Glucose (UA) Negative, Urine Ketones Negative, Urine Blood Trace-i, Urine Nitrate Negative, Urine Bilirubin Negative, Urine Urobilinogen 0.2, Ur Leukocyte Esterase Negative, Urine RBC 20-50, Urine WBC Occasional, Ur Squamous Epith Cells 5-10, Urine Bacteria 2+, Hyaline Casts 3-5, Urine Mucus 3+ 03/18/25 19:07: Troponin I < 0.01 03/18/25 15:48 03/18/25 15:48 Orders (Tests/Meds): ED MEDICATIONS Generic Name Dose Route Start Last Admin Trade Name Freq PRN Reason Stop Dose Admin Ceftriaxone Sodium 2 gm/ 100 mls @ 200 mls/hr 03/18/25 19:30 03/18/25 19:49 Sodium Chloride IV 03/18/25 19:59 200 mls/hr ONCE ONE Administration Discontinued Medications Generic Name Dose Route Start Last Admin Trade Name Freq PRN Reason Stop Dose Admin Lactated Ringer's 1,000 mls @ 999 mls/hr 03/18/25 15:54 03/18/25 15:57 Lactated Ringer's 1000 Ml Bag IV 03/18/25 16:54 999 mls/hr .Q1H1M ONE Administration Lactated Ringer's 1,000 mls @ 999 mls/hr 03/18/25 16:23 03/18/25 17:00 Lactated Ringer's 1000 Ml Bag IV 03/18/25 17:23 999 mls/hr .Q1H1M ONE Administration Magnesium Sulfate 2 gm in 50 mls @ 50 mls/hr 03/18/25 16:23 03/18/25 16:27 Magnesium Sulfate 2gm/50ml Premix IV 03/18/25 17:22 50 mls/hr ONCE ONE Administration Lidocaine HCl 10 ml 03/18/25 18:53 03/18/25 18:54 Lidocaine 2% Urojet 10ml UR 03/18/25 18:54 10 ml ONCE ONE Administration Ondansetron HCl 4 mg 03/18/25 17:12 03/18/25 17:16 Ondansetron 4mg/2ml Vial IV 03/18/25 17:13 4 mg ONCE ONE Administration ORDERS Category Date Time Status CT abdomen pelvis wo con Stat Cat Scan 03/18/25 16:[address] chest wo con Stat Cat Scan 03/18/25 16:[address] soft tissue neck wo con Stat Cat Scan 03/18/25 16:51 Completed BNP [NT Pro Brain Natriuretic Pep.] Stat Lab 03/18/25 15:48 Completed Complete Blood Count Auto Diff Stat Lab 03/18/25 15:48 Completed Comprehensive Metabolic Panel Stat Lab 03/18/25 15:48 Completed HIV Combo Stat Lab 03/18/25 15:48 Completed Hepatitis C Ab Qual. W/ RFX Stat Lab 03/18/25 15:48 Completed Lipase Stat Lab 03/18/25 15:48 Completed MAG [Magnesium] Stat Lab 03/18/25 15:48 Completed PHOS [Phosphorous] Stat Lab 03/18/25 15:48 Completed PT INR [Prothrombin Time INR] Stat Lab 03/18/25 15:48 Completed PTT [Activated Partial Thrombo Time] Stat Lab 03/18/25 15:48 Completed Rapid PCR Covid and Flu A/B Stat Lab 03/18/25 16:06 Completed T4 (Thyroxine) Stat Lab 03/18/25 15:48 Completed TSH [Thyroid Stimulating Hormone] Stat Lab 03/18/25 15:48 Completed Trop I [Troponin I] Stat Lab 03/18/25 15:48 Completed Troponin I Q3H Lab 03/18/25 19:07 Completed Troponin I Q3H Lab 03/18/25 22:00 Ordered UA [Urinalysis and Microscopic] Stat Lab 03/18/25 18:45 Completed Blood Culture Stat Micro 03/18/25 16:32 Received Urine Culture Stat Micro 03/18/25 18:45 Received VBG [Venous Blood Gas] Stat RT 03/18/25 15:53 Completed ECG Data Tracing #1: I reviewed this ECG and interpreted as documented below: Normal sinus rhythm with a ventricular rate of 94 bpm. First-degree AV block with a GA interval of [address]/T wave changes without acute STEMI. No prior EKG available for comparison ECG initial impression date: 03/18/25 ECG initial impression time: 15:45 Medical Decision Narrative: In summary, this patient is a 74-year-old male presenting to the Emergency Department for evaluation of general weakness, poor oral intake, nausea, vomiting, cough, urinary symptoms, concerns for dehydration with low blood pressure in PCP office. Differential diagnoses considered include but are not limited to dehydration, JAYLEN, electrolyte derangements, sepsis, pneumonia, UTI, failure to thrive. Ruling out the most morbid conditions drove assessment. It should be noted patient's history includes type 2 diabetes, hypertension, hyperlipidemia, CKD, obesity which may or may not be at goal therapy. This complicates all aspects of care by increasing patient's risk for morbidity. I reviewed patient's past medical records and noted prior admissions at for failure to thrive and PE after recent knee surgery as detailed in HPI. I also noted PCP evaluation today with concern for dehydration.. On exam, the patient is ill-appearing. He is pale, diaphoretic with dry mucous membranes and very hoarse voice. Vitals here are within normal limits with the exception of hypotension. Blood pressure 81/53 on initial assessment. O2 saturation in the low 90s on room air. Heart rate in the 80s to low 100s. Workup included lab evaluation to evaluate for infectious, metabolic, cardiac issues as well as chest x-ray and EKG. IV fluid resuscitation was initiated with 1 L bolus of IV fluids for low blood pressures and dehydration on clinical assessment. Labs obtained demonstrated an JAYLEN on CKD. Patient was also found to have urinary retention with greater than 600 in his bladder, so Kaur catheter was placed. Urine obtained is concerning for possible infection, so he was started on IV Rocephin. He received essentially the equivalent of a sepsis bolus with 2 L of IV fluids. CBC is reassuring with no significant leukocytosis. He does have mild anemia. He has hyponatremia and hypomagnesemia in the setting of this JAYLEN on CKD, presumably due to dehydration. He has no significant acidosis. He was given IV magnesium repletion and was monitored on cardiac telemetry while receiving this. Troponin obtained is negative. Given his symptoms, I elected to obtain CT soft tissue neck, chest, and abdomen and pelvis, however I did this without IV contrast because of his significant JAYLEN. I independently interpreted CT scans prior to the radiologist read and noted no obvious acute airway obstruction, no obvious bowel obstruction. Please see their read for final interpretation. They noted concern for thickening of his hypopharynx on the left, aspiration of material into his airway, and multiple retroperitoneal and pelvic lymph nodes that appear to be pathologic. Ultimately given the hypopharyngeal abnormality on scan as well as the multiple retropharyngeal nodes, I elected to consult to see if they felt he would benefit from transfer to higher level of care for ENT evaluation and for oncology evaluation. I had an interactive discussion with Dr. Scanlon in the transfer center who also brought ENT on the call. They advised they will help arrange outpatient follow-up in ENT clinic for possible scope and also will arrange follow-up in [facility] for further evaluation and management of these concerning pathologic nodes. They advised they do not feel he would benefit from transfer emergently for evaluation of these things, they recommended admission here for JAYLEN, dehydration, failure to thrive and possible GI evaluation for scope as appropriate to exclude esophageal or colon masses given the multiple pelvic and retroperitoneal lymph nodes as well as his poor oral intake. I then had an interactive discussion with the hospitalist who was in agreement to admit the patient here for further evaluation and management. The patient was admitted in stable condition. Family was updated to plan of care. Critical Care Critical Care Time Critical Care Time: Yes Attestation: On 03/18/25, the high probability of a clinically significant, sudden or life threatening deterioration of the following system(s) required my full and direct attention, intervention and personal management. The time I documented below is in addition to time spent performing reported procedures but includes the following listed in this critical care notation. Total Time Total Critical Care Time: 45
[2025-03-18 16:02] LABS: VBG Base Excess -0.3 mmol/L (-2.4-2.3); VBG HCO3 24.7 mmol/L (23-30); VBG Oxygen Saturation 77.9 % (50-70); VBG PCO2 41.6 mmol/L (35-51); VBG PH 7.39 mmol/L (7.31-7.41); VBG PO2 43.7 mmol/L (28-40)
[2025-03-18 16:03] LABS: Basophils % 0.2 % (0.1-2.0); Eosinophils # 0.2 Kmm3 (0.0-0.4); Eosinophils % 2.4 % (0.1-12.0); Hematocrit 38.2 % (42.0-52.0); Hemoglobin 12.3 g/dL (14.1-18.0); Immature Granulocytes # 0.05 10^3uL; Immature Granulocytes % 0.6 %; Lymphocytes # 1.7 K/mm3 (0.7-4.5); Lymphocytes % 18.9 % (10-50); Mean Corpuscular HGB Conc 32.2 g/dL (31.8-35.4); Mean Corpuscular Hemoglobin 28.1 pg (27.0-31.2); Mean Corpuscular Volume 87.4 fl (80-94); Mean Platelet Volume 9.1 fl (7.4-10.4); Monocytes % 11.1 % (1.7-9.3); Neutrophils % 66.8 % (37.0-80.0); Nucleated Red Blood Cells # 0 10^3/uL; Nucleated Red Blood Cells % 0 %; Platelet Count 449 K/mm3 (142-424); Red Blood Count 4.37 M/mm3 (4.60-6.20); Red Cell Distribution Width 14.3 % (11.5-17.5)
[2025-03-18 16:08] LABS: Alanine Aminotransferase 12 U/L (12-78); Albumin Level 4.1 g/dl (3.5-5.0); Albumin/Globulin Ratio 0.9 (1.1-1.8); Alkaline Phosphatase 82 U/L (38-126); Anion Gap 19.3 mEq/L (5-15); Aspartate Amino Transferase 20 U/L (17-59); Bilirubin,Total 0.6 mg/dl (0.2-1.3); Blood Urea Nitrogen 45 mg/dl (9-20); Calcium 10.2 mg/dl (8.4-10.2); Carbon Dioxide 27 mmol/L (22.0-30.0); Chloride 92 mmol/L (98-107); Estimated Glomerular Filt Rate 18 ml/min (>60); GFR (African American) 22 ML/MIN (>60); Globulin 4.5 g/dL (1.3-3.2); Glucose 154 mg/dl (74-100); Lipase 86 U/L (23-300); Magnesium 1.4 mg/dl (1.6-2.3); Phosphorous 4.7 mg/dl (2.5-4.5); Potassium 4.3 mmoL/L (3.5-5.1); Sodium 134 mmol/L (136-145); Total Protein,Serum 8.6 g/dl (6.3-8.2)
[2025-03-18 16:09] LABS: Coronavirus 19, PCR Not Detected (NotDetected); Influenza A, PCR Not Detected (NotDetected); Influenza B, PCR Not Detected (NotDetected)
[2025-03-18 16:11] LABS: INR 1.17 (0.9-1.1); Prothrombin Time 12.8 seconds (10.1-12.5)
[2025-03-18 16:14] LABS: Creatinine Clearance Estimated 34 mL/min (50-200)
[2025-03-18 16:19] LABS: NT Pro Brain Natriuretic Pep. 277 pg/mL (0-125)
[2025-03-18 16:24] LABS: T4 (Thyroxine) 7.3 ug/dl (5.53-11.0)
[2025-03-18] MEDS: MAGNESIUM SULFATE IN WATER 2 GM/50 ML PIGGYBACK IV (16:27)
[2025-03-18 16:38] LABS: Thyroid Stimulating Hormone 1.49 uIU/mL (0.465-4.68)
[2025-03-18 16:41] LABS: Troponin I < 0.01 ng/ml (0.00-0.034)
--- NOTE | 2025-03-18 16:51 | CT_ITS ---
PROCEDURE INFORMATION: Exam: CT Neck Without Contrast Exam date and time: 03/18/2025 6:07 PM Age: 74 years old Clinical indication: Other: Hoarseness; Additional info: Progressive hoarseness TECHNIQUE: Imaging protocol: Computed tomography of the neck without contrast. Radiation optimization: All CT scans at this facility use at least one of these dose optimization techniques: automated exposure control; mA and/or kV adjustment per patient size (includes targeted exams where dose is matched to clinical indication); or iterative reconstruction. COMPARISON: CT SOFT TISSUE NECK W CON 11/15/2022 9:14 AM FINDINGS: Salivary glands: Normal. Glands are normal in size. Pharynx: See Soft tissues finding. Larynx: Unremarkable. Epiglottis is normal. Thyroid: Normal. No enlarged or calcified nodules. Trachea: Visualized trachea is unremarkable. Lungs: Unremarkable as visualized. Lymph nodes: Unremarkable. No lymphadenopathy. Vasculature: Moderate calcific atherosclerotic disease of the right ICA resulting in mild stenosis. Mild calcific atherosclerotic disease of the left carotid bulb resulting in mild stenosis. Bones/joints: Moderate loss of intervertebral disc space with degenerative changes involving C5 through C7. Soft tissues: Examination limited secondary to noncontrast technique which reduces sensitivity for detecting solid organ, hollow viscera and vascular pathology. Nonspecific thickening of the left hypopharynx soft tissues best seen on image 45 of series 3. IMPRESSION: 1. Nonspecific thickening of the left hypopharynx soft tissues best seen on image 45 of series 3. Recommend further evaluation with direct visualization. 2. Examination limited secondary to noncontrast technique which reduces sensitivity for detecting solid organ, hollow viscera and vascular pathology.
--- NOTE | 2025-03-18 16:51 | CT_ITS ---
PROCEDURE INFORMATION: Exam: CT Abdomen And Pelvis Without Contrast Exam date and time: 03/18/2025 6:10 PM Age: 74 years old Clinical indication: Nausea and vomiting; Additional info: Nausea/vom, gerry TECHNIQUE: Imaging protocol: Computed tomography of the abdomen and pelvis without contrast. Radiation optimization: All CT scans at this facility use at least one of these dose optimization techniques: automated exposure control; mA and/or kV adjustment per patient size (includes targeted exams where dose is matched to clinical indication); or iterative reconstruction. COMPARISON: CT CHEST WO CON 03/18/2025 6:10 PM FINDINGS: Lungs: The visualized lung bases demonstrate no focal infiltrates or pleural effusions. Liver: The liver appears within normal limits. Gallbladder and biliary ducts: The gallbladder is normal. There is no evidence of biliary ductal dilation. Pancreas: The pancreas is normal. Spleen: The spleen is normal. Adrenal glands: The adrenal glands appear within normal limits. Kidneys and ureters: The kidneys are normal. Stomach and bowel: Unremarkable. No obstruction. No mucosal thickening. Appendix: No evidence of appendicitis. Intraperitoneal space: Unremarkable. No free air. No significant fluid collection. Vasculature: Unremarkable. No abdominal aortic aneurysm. Lymph nodes: Multiple enlarged retroperitoneal periaortic lymph nodes the largest at the level of the distal abdominal aorta measures 2.2 cm. Multiple enlarged left common iliac, left external iliac and left common femoral chain lymph nodes. The largest measures 2.5 cm. Another large lymph node measuring 3.4 cm. There is an enlarged right common femoral chain lymph node measures 18 mm. Numerous enlarged left inguinal lymph nodes the largest measuring 3 cm. Mildly enlarged right inguinal lymph nodes. Urinary bladder: Unremarkable as visualized. Reproductive: Unremarkable as visualized. Bones/joints: Unremarkable. No acute fracture. Soft tissues: Moderate atrophy with fatty replacement of the left iliacus muscle and left psoas muscle. IMPRESSION: 1. Pathologic retroperitoneal, intrapelvic and inguinal adenopathy suspicious for either metastatic disease or lymphoma. 2. Moderate atrophy with fatty replacement of the left iliacus muscle and left psoas muscle.
--- NOTE | 2025-03-18 16:51 | CT_ITS ---
PROCEDURE INFORMATION: Exam: CT Chest Without Contrast; Diagnostic Exam date and time: 03/18/2025 6:10 PM Age: 74 years old Clinical indication: Cough; Additional info: Post op cough, vomiting TECHNIQUE: Imaging protocol: Diagnostic computed tomography of the chest without contrast. Radiation optimization: All CT scans at this facility use at least one of these dose optimization techniques: automated exposure control; mA and/or kV adjustment per patient size (includes targeted exams where dose is matched to clinical indication); or iterative reconstruction. COMPARISON: CR XR CHEST PORTABLE 12/13/2023 11:13 AM FINDINGS: Trachea: There is minimal retained secretions or aspirated material within the dependent portion of the trachea at the level of the superior mediastinum. Lungs: Mild bibasilar atelectasis. No acute infiltrates. Pleural spaces: Unremarkable. No pneumothorax. No pleural effusion. Heart: See Vasculature finding. Coronary arteries: Three-vessel coronary artery calcifications. Lymph nodes: Unremarkable. No enlarged lymph nodes. Vasculature: The mediastinal structures including the esophagus, trachea, great vessels, and heart show no evidence of injury or acute pathologic processes. Kidneys: Exophytic simple cyst off the right kidney measures 3.4 cm. Bones/joints: Unremarkable. No acute fracture. Soft tissues: Chest wall subcutaneous tissues and musculature appear unremarkable. IMPRESSION: Mild bibasilar atelectasis. No acute infiltrates. There is minimal retained secretions or aspirated material within the dependent portion of the trachea at the level of the superior mediastinum. COMMENTS: Consistent with the [employer]'s Incidental Findings Committee white paper (J Am Nalini Radiol 2018): Any incidental renal lesion less than 1 cm or classified as too small to characterize, or any incidental cystic renal lesion characterized as simple-appearing, is likely benign. No follow-up imaging is recommended for these lesions per consensus recommendations based on imaging criteria.
[2025-03-18] MEDS: ONDANSETRON 4MG/2ML VIAL 4 MG IV (17:16)
[2025-03-18 17:24] LABS: Hepatitis C Ab Qual. W/ RFX NEGATIVE (Negative)
--- NOTE | 2025-03-18 18:02 | PC.NURSE ---
pt to ct scan via stretcher
[2025-03-18 18:52] LABS: Microscopic, Urine URINE MICROSCOPIC (MICROSCOPIC)
[2025-03-18 18:54] LABS: Appearance,Urine CLEAR (Clear); Bilirubin,Urine Negative (Negative); Blood, Urine TRACE-I (Negative); Color,Urine YELLOW (Yellow); Glucose,Urine (UA) Negative (Negative); Ketones,Urine Negative (Negative); Leukocyte Esterase,Urine Negative (Negative); Nitrate,Urine Negative (Negative); PH,Urine 5.5 (5.0-8.5); Protein,Urine Negative (Negative); Specific Gravity, Urine 1.015 (1.005-1.030); Urobilinogen,Urine 0.2 EU/dl (0.2)
[2025-03-18] MEDS: LIDOCAINE 2% UROJET 10ML 10 ML UR (18:54)
[2025-03-18 18:55] LABS: HIV Combo NEGATIVE (Negative)
--- NOTE | 2025-03-18 19:00 | PC.NURSE ---
@ 1830 i asked pt to attempt to give urine sample. States he has no urge to go. Attempt was made wo success. Bladder scan revealed 600-615ml in bladder. Dr Long notified and ordered indwelling saravia cath. Pt also placed on 2LPM NC d/t sat dipped to 86% while awake.
[2025-03-18 19:27] LABS: Bacteria,Urine 2+ /lpf; Mucus,Urine 3+ /lpf; RBC,Urine 20-50 #/hpf (0-3); WBC,Urine Occasional #/hpf (0-3)
--- NOTE | 2025-03-18 19:37 | PC.NURSE ---
Called [facility] for a possible pt transfer to [facility]
[2025-03-18 19:45] LABS: Troponin I < 0.01 ng/ml (0.00-0.034)
[2025-03-18] MEDS: CEFTRIAXONE SODIUM 2 GM in 0.9 % SODIUM CHLORIDE 100 ML IV (19:49)
[2025-03-18 20:02] LABS: Reflex Lactic Add Lactic Reflex
--- NOTE | 2025-03-18 20:19 | PC.NURSE ---
Report called to FELISA Berkowitz.
[2025-03-18 20:25] LABS: Lactic Acid Follow Up (RFLX 1) 2.1 mmol/L (0.7-2.1)
--- NOTE | 2025-03-18 21:22 | PC.NURSE ---
Patient arrived to floor via stretcher from ED at 20:54.
[2025-03-18 22:04] LABS: Reflex Lactic (2 hrs) Add Lactic Reflex
[2025-03-18] MEDS: 0.9 % SODIUM CHLORIDE 1000ML 1,000 ML 100 ML IV (22:19)
[2025-03-18] MEDS: HEPARIN SODIUM 5,000 UNIT/ML VIAL 5000 UNIT SQ (22:19)
[2025-03-18] MEDS: APIXABAN 5MG TABLET 5 MG PO (22:47)
[2025-03-18] MEDS: GABAPENTIN 100MG CAPSULE 100 MG PO (22:47)
--- NOTE | 2025-03-18 22:47 | P.HP_ITS ---
<Statement entered by Tomas Barboza MD - 03/19/25 15:59> Rounded on patient after nurse practitioner. Personally examined and interviewed patient. Agree with exam findings and care plan as documented. History of Present Illness *Admission Date: 03/18/25 *Reason for visit:: Low blood pressure *History of present illness: Mr. Montoya is a 74-year-old male presents to ER for evaluation of low blood pressure. Patient has a past medical history of type 2 diabetes mellitus, hypertension, hyperlipidemia, chronic kidney disease, morbid obesity, pulmonary embolism, deep vein thrombosis, iron and B12 deficiency anemia, and recent right knee replacement. Primary historian is patient's due to patient's complaint of hoarseness. She reports that patient had his right knee replaced on January 28, 2025. She states that patient was discharged after surgery and then admitted to the hospital for 2 weeks and then sent to rehab for 2 weeks. She states patient has been home for 2 weeks following rehab. She reports last week patient complained of nasal congestion, runny nose, and cough. She states she thought this was allergies. Over the last couple days patient has been sleeping and not, decreased appetite, and having daily nausea and vomiting. She states patient has tried to eat breakfast bar but has had vomiting with that as well. She states patient usually gets up every hour to urinate but last night he did not get up at all through the night. In the ER patient was catheterized with a 700 mL output. Patient denies any previous history of urinary retention. He states that he had no urge to urinate. Patient reports some dizziness due to low blood pressure today. Patient denies fever/chills, chest pain, dyspnea, abdominal pain, lightheadedness, or syncope. Patient is on supplemental oxygen, he denies home O2 use. reports patient recently diagnosed with PE and DVT and is on Eliquis. [facility] Disclaimer: The information contained in this section may have been updated after the patient was seen, as this information can be updated by other users. Surgical History S/P total knee replacement Family History (Updated 03/18/25 @ 22:06 by Sho Nam RN) Other No significant family history Social History Smoking Status: Never smoker alcohol intake: never current occupational status: retired Travel in the last 8 weeks?: None Have you lived/traveled outside US in past 30 days?: No Contact w/someone who lives/traveled outside US past 30 days?: No Exposure to someone with infectious disease in past 14 days?: No Do you have a fever (greater than 100.4 F or 38 C)?: No Have you tested positive for COVID-19?: No Exposed to someone with COVID-19 in past 14 days?: No Do you have a sore throat?: No Do you have a cough?: No Do you have any weakness?: No Do you have any diarrhea?: No Are you experiencing any unusual bleeding?: No Do you have any muscle aches/pain?: No Do you have any abdominal pain?: No Are you experiencing loss of taste or smell?: No Other Medical History Have you received the Flu Vaccine for this season: No Have you received the Pneumonia Vaccine: No Review of Systems Constitutional Constitutional: Reports anorexia, Denies chills, Reports daytime sleepiness, Reports fatigue, Denies fever(s), Denies headache(s) and Reports poor appetite ENT Ears, Nose, Mouth, and Throat: Reports dizziness, Denies dysphagia, Denies headache(s), Reports nasal congestion and Reports nasal discharge *Cardiovascular Cardiovascular: Denies chest pain, Denies dyspnea and Denies lightheadedness *Respiratory Respiratory: Reports cough and Denies dyspnea *Gastrointestinal Gastrointestinal: Denies change in bowel habits, Denies change in stool character, Denies constipation, Denies diarrhea, Denies dysphagia, Reports nausea and Reports vomiting *Genitourinary Genitourinary: Reports oliguria *Musculoskeletal Musculoskeletal: Reports system reviewed and no additional complaints, except as documented *Neurologic Neurologic: Reports dizziness and Denies headache(s) Endocrine Endocrine: Reports fatigue Meds Home Medications and Allergies Home Medications ?Medication ?Instructions ?Recorded ?Confirmed ?Type triamcinolone acetonide 0.1 % 1 applic topical DIRE CTED 05/15/24 03/18/25 History topical cream tamsulosin 0.4 mg capsule 0.4 mg PO DAILY 11/27/24 History mecobalamin (vitamin B12) 1,000 1,000 mcg PO DAILY #90 tabs 11/28/24 03/18/25 Rx mcg chewable tablet lisinopril 20 1 tab PO BID #180 tabs 01/1603/18/25 Rx mg-hydrochlorothiazide 25 mg tablet semaglutide 2 mg/dose (8 mg/3 mL) 2 mg (0.75 mL) SQ WE EKLY #3 mL 03/10/25 03/18/25 Rx subcutaneous pen injector apixaban 5 mg tablet (Eliquis) 5 mg PO BID #60 tabs 03/18/25 Rx acetaminophen 500 mg tablet 500 mg PO Q6H PRN Pain (Sc jenni 03/18/25 03/18/25 History Score 1-3) amlodipine 5 mg tablet 5 mg PO BID 03/18/25 5 History aspirin 81 mg tablet 81 mg PO DAILY 03/18/2502/23 History famotidine 20 mg tablet 20 mg PO HS 03/18/25 5 History furosemide 40 mg tablet 40 mg PO DAILY 03/18/2502/23 History gabapentin 100 mg capsule 100 mg PO BID 03/18/2503/18 History metformin 1,000 mg tablet 1,000 mg PO BID 03/18/25 History pioglitazone 15 mg tablet 15 mg PO DAILY 03/18/2502/23 History pravastatin 20 mg tablet 20 mg PO HS 03/18/25 5 History New Prescriptions to Start Prescriptions: Allergies Allergy/AdvReac Type Severity Reaction Status Date / Time Tetanus Vaccines and Toxoid AdvReac Mild Verified 03/18/25 14:51 Exam Data for Last 24 hours Vital signs and Labs for Last 24 Hours: Temp Pulse Resp BP Pulse Ox O2 Del Method O2 Flow Rate 97.5 F L 78 20 91/43 L 95 Nasal Cannula 2 03/18/25 21:13 03/18/25 21:13 03/18/25 21:13 03/18/25 21:13 03/18/25 21:13 03/18/25 22:35 03/18/25 22:35 Laboratory Results - last 24 hr 03/18/25 15:48: WBC 9.0, RBC 4.37 L, Hgb 12.3 L, Hct 38.2 L, MCV 87.4, MCH 28.1, MCHC 32.2, RDW 14.3, Plt Count 449 H, MPV 9.1, Neut % (Auto) 66.8, Lymph % (Auto) 18.9, Wright % (Auto) 11.1 H, Eos % (Auto) 2.4, Baso % (Auto) 0.2, Neut # (Auto) 6.0, Lymph # (Auto) 1.7, Wright # (Auto) 1.0, Eos # (Auto) 0.2, Baso # (Auto) 0.0, PT 12.8 H, INR 1.17 H, APTT 33.0 H, Sodium 134 L, Potassium 4.3, Chloride 92 L, Carbon Dioxide 27, Anion Gap 19.3 H, BUN 45 H, Creatinine 3.30 H, Estimated Creat Clear 34, Estimated GFR 18 L*, Est GFR ( Amer) 22 L, Glucose 154 H, Calcium 10.2, Phosphorus 4.7 H, Magnesium 1.4 L, Total Bilirubin 0.6, AST 20, ALT 12, Alkaline Phosphatase 82, Troponin I < 0.01, NT-Pro-B Na triuret Pep 277 H, Total Protein 8.6 H, Albumin 4.1, Globulin 4.5 H, Albumin/Globulin Ratio 0.9 L, Lipase 86, TSH 1.49, Thyroxine (T4) 7.3, HCV Ab TRAVIS w/Rflx PCR Qn Negative, HIV Ag/Ab Combo Qual Negative 03/18/25 15:53: VBG pH 7.39, VBG pCO2 41.6, VBG pO2 43.7 H, VBG HCO3 24.7, VBG Total CO2 26.0, VBG O2 Saturation 77.9 H, VBG Base Excess -0.3, VBG Lactic Acid 3.0 H 03/18/25 16:06: SARS-CoV-2 (PCR) Not detected, Influenza A Untype (PCR) Not detected, Influenza Type B (PCR) Not detected 03/18/25 18:45: Urine Color Yellow, Urine Appearance Clear, Urine pH 5.5, Ur Specific [place] 1.015, Urine Protein Negative, Urine Glucose (UA) Negative, Urine Ketones Negative, Urine Blood Trace-i, Urine Nitrate Negative, Urine Bilirubin Negative, Urine Urobilinogen 0.2, Ur Leukocyte Esterase Negative, Urine RBC 20-50, Urine WBC Occasional, Ur Squamous Epith Cells 5-10, Urine Bacteria 2+, Hyaline Casts 3-5, Urine Mucus 3+ 03/18/25 19:07: Lactate 2.1, Troponin I < 0.01 I & O for Last 24 hours: Intake & Output 03/15/25 03/16/25 03/17/25 03/18/25 23:59 23:59 23:59 23:59 Output Total 825 / 825 Balance -825 / -825 Weight 125.69 kg *Routine HEENT Exam Head: Present normocephalic and atraumatic Eye: Present EOMI and PERRL ENT: Present mucous membranes moist and oropharynx clear *Routine Neck Exam Neck: Present supple and full ROM *Routine Respiratory Exam Respiratory: Present CTA bilaterally, normal respiratory effort and symmetric chest movement; Absent accessory muscle use or respiratory distress *Routine Cardiovascular Exam Cardiovascular: Present RRR, Normal S1 and Normal S2 *Routine Abdominal Exam Abdominal: Present soft, normoactive bowel sounds and obese; Absent tenderness *Routine Rectal Exam Rectal:: deferred *Routine Genitalia Exam Genitalia:: deferred *Routine Extremities Exam Extremities: Absent edema or tenderness *Routine Skin Exam Skin: Present intact and warm *Routine Neurological Exam Neurological: Present alert, oriented X3 and CN II-XII intact Assessment and Plan *Assessment and plan (1) Acute kidney injury superimposed on CKD: Status: Acute Category: Medical Code(s): N17.9 - Acute kidney failure, unspecified; N18.9 - Chronic kidney disease, unspecified Plan: NS at 100 mL an hour Monitor BMP Monitor for fluid overload Monitor I's and O's Avoid nephrotoxic agents (2) Acute hypotension: Status: Acute Category: Medical Code(s): I95.9 - Hypotension, unspecified Plan: NS at 100 mL an hour Hold home antihypertensives and Lasix Consider starting midodrine if continues (3) Acute respiratory failure: Status: Acute Category: Medical Code(s): J96.00 - Acute respiratory failure, unspecified whether with hypoxia or hypercapnia Plan: Continue supplemental oxygen to maintain SpO2 greater than 92% and wean as tolerated (4) Acute urinary retention: Status: Acute Category: Medical Code(s): R33.8 - Other retention of urine Plan: Maintain Kaur catheter Increased Flomax to 0.8 mg daily Consider voiding trial before discharge (5) Dehydration: Status: Acute Category: Medical Code(s): E86.0 - Dehydration Plan: IV fluids Monitor BMP (6) Adult failure to thrive: Status: Acute Category: Medical Code(s): R62.7 - Adult failure to thrive Plan: 1800-calorie diabetic diet (7) Hypopharyngeal lesion: Status: Acute Category: Medical Code(s): J39.2 - Other diseases of pharynx Plan: ER provider consulted [facility] and they are arranging outpatient follow-up in the ENT clinic for possible scope Consider GI consultation for upper and lower endoscopy (8) Lymphadenopathy, retroperitoneal: Status: Acute Category: Medical Code(s): R59.0 - Localized enlarged lymph nodes Plan: ER provider consulted [facility] and they are arranging outpatient follow-up in [facility] Consider GI consultation for upper and lower endoscopy (9) Hypomagnesemia: Status: Acute Category: Medical Code(s): E83.42 - Hypomagnesemia Plan: Received 2 g of magnesium in the ER Repeat magnesium level in a.m. (10) Type 2 diabetes mellitus with peripheral neuropathy: Status: Chronic Category: Medical Code(s): E11.42 - Type 2 diabetes mellitus with diabetic polyneuropathy Plan: Fingerstick before meals and at bedtime Sliding scale insulin 1800-calorie ADA diet
[2025-03-18 23:58] LABS: Lactic Acid Follow up (RFLX 2) 1.2 mmol/L (0.7-2.1)
[2025-03-19] VITALS: BP 104/57; PULSE 76; RESP 16; TEMP 36.6; O2SAT 92
[2025-03-19 00:12] LABS: Troponin I < 0.01 ng/ml (0.00-0.034)
[2025-03-19 04:00] VITALS: BP 112/48; PULSE 75; RESP 14; TEMP 36.4; O2SAT 98; BMI 37.5
--- NOTE | 2025-03-19 04:22 | PC.NURSE ---
Pt remains A&Ox4 however is soft spoken and sometimes slow to answer. Pt is currently tolerating 2L well @ %. Pt denies pain and needs when asked. Pt did have a slight bloody appearance to his urine, Pt denies pain at cath insertion site, this nurse did notify Umberto Quezada APRN. Pt has tolerated fluids well this shift and has rested well.
[2025-03-19 04:43] LABS: POC Glucose,Bedside 99 (70-110)
[2025-03-19 05:22] LABS: POC Glucose,Bedside 110 (70-110)
[2025-03-19 06:52] LABS: Chloride 98 mmol/L (98-107)
[2025-03-19 06:53] LABS: Potassium 4.3 mmoL/L (3.5-5.1); Sodium 137 mmol/L (136-145)
[2025-03-19 06:56] LABS: Anion Gap 16.3 mEq/L (5-15); Blood Urea Nitrogen 42 mg/dl (9-20); Calcium 9.1 mg/dl (8.4-10.2); Carbon Dioxide 27 mmol/L (22.0-30.0); Creatinine Clearance Estimated 50 mL/min (50-200); Estimated Glomerular Filt Rate 28 ml/min (>60); GFR (African American) 34 ML/MIN (>60); Glucose 109 mg/dl (74-100)
[2025-03-19 06:58] LABS: Basophils % 0.4 % (0.1-2.0); Eosinophils # 0.4 Kmm3 (0.0-0.4); Eosinophils % 5.2 % (0.1-12.0); Hematocrit 33.8 % (42.0-52.0); Immature Granulocytes # 0.02 10^3uL; Immature Granulocytes % 0.3 %; Lymphocytes # 1.5 K/mm3 (0.7-4.5); Lymphocytes % 21.9 % (10-50); Mean Corpuscular HGB Conc 32.2 g/dL (31.8-35.4); Mean Corpuscular Hemoglobin 28.4 pg (27.0-31.2); Monocytes # 0.8 K/mm3 (0.1-1.0); Monocytes % 12.2 % (1.7-9.3); Nucleated Red Blood Cells # 0 10^3/uL; Nucleated Red Blood Cells % 0 %; Platelet Count 360 K/mm3 (142-424); Red Blood Count 3.84 M/mm3 (4.60-6.20); Red Cell Distribution Width 14.6 % (11.5-17.5); Red Cell Distribution Width-SD 46.7 fL; White Blood Count 6.7 K/mm3 (4.8-10.8)
[2025-03-19 07:00] LABS: Lactic Acid 0.9 mmol/L (0.7-2.1)
[2025-03-19 07:43] LABS: Hemoglobin 10.9 g/dL (14.1-18.0)
--- NOTE | 2025-03-19 07:45 | HMH.PHAINT1 ---
Pharmacy Intervention Comments: HOME MEDICATION LIST VERIFIED USING LIST FROM OUTPATIENT PHARMACY AND PT INTERVIEW
[2025-03-19 07:59] LABS: Magnesium 1.9 mg/dl (1.6-2.3)
[2025-03-19 08:00] VITALS: BP 110/70; PULSE 83; RESP 16; TEMP 36.1; O2SAT 2; O2SAT 94
[2025-03-19] MEDS: APIXABAN 5MG TABLET 5 MG PO ×2 (08:18→21:00)
[2025-03-19] MEDS: ASPIRIN 81MG CHEWABLE TABLET 81 MG PO (08:18)
[2025-03-19] MEDS: 0.9 % SODIUM CHLORIDE 1000ML 1,000 ML 100 ML IV (08:22)
[2025-03-19] MEDS: FINASTERIDE 5MG TABLET 5 MG PO (08:40)
[2025-03-19] MEDS: GABAPENTIN 100MG CAPSULE 100 MG PO ×2 (08:41→21:00)
--- NOTE | 2025-03-19 11:20 | HMH.PTEV ---
Physical Therapy Evaluation Rehab PT IP Evaluation Start: 03/19/25 07:41 Freq: ONCE Status: Active Protocol: Document 03/19/25 11:10 TERI (Rec: 03/19/25 11:20 TERI [id number]) Subjective/History History History Per H&P: Mr. Montoya is a 74-year-old male presents to ER for evaluation of low blood pressure. Patient has a past medical history of type 2 diabetes mellitus, hypertension, hyperlipidemia, chronic kidney disease, morbid obesity, pulmonary embolism, deep vein thrombosis, iron and B12 deficiency anemia, and recent right knee replacement. Primary historian is patient's due to patient's complaint of hoarseness. She reports that patient had his right knee replaced on January 28, 2025. She states that patient was discharged after surgery and then admitted to the hospital for 2 weeks and then sent to rehab for 2 weeks. She states patient has been home for 2 weeks following rehab. She reports last week patient complained of nasal congestion, runny nose, and cough. She states she thought this was allergies. Over the last couple days patient has been sleeping and not, decreased appetite, and having daily nausea and vomiting. She states patient has tried to eat breakfast bar but has had vomiting with that as well. She states patient usually gets up every hour to urinate but last night he did not get up at all through the night. In the ER patient was catheterized with a 700 mL output. Patient denies any previous history of urinary retention. He states that he had no urge to urinate. Patient reports some dizziness due to low blood pressure today. Patient denies fever/ chills, chest pain, dyspnea, abdominal pain, lightheadedness, or syncope. Patient is on supplemental oxygen, he denies home O2 use. reports patient recently diagnosed with PE and DVT and is on Eliquis. Subjective Subjective Pt reports he is usually able to ambulate short distances with RW and assistance from his . Pt lives in a 2-story home. New diagnosis of No cancer in past 12 months? [facility] How much help from another person do you currently need... Turning from your A lot back to your side while in a flat bed without using bedrails? Moving from lying on A lot back to sitting on the side of a flat bed without using bedrails? Moving to and from a A lot bed to a chair ( including a wheelchair)? Standing up from a A lot chair using your arms? (e.g., wheelchair, bedside chair) Walking in hospital A lot room? Climbing 3-5 steps A lot with a railing? Mobility Score 12 Mobility Level [facility] Mobility 4 Move to chair/commode Mobility Calculator Rehab PT IP Eval Objective Appearance Patient Behavior Appropriate,Cooperative Patient Orientation Person,Place Difficulty following none instructions Speech Pattern Clear Ambulation Patient Able to No Ambulate Balance Ability to Arise Able, uses arms to help Sitting Balance Steady, safe Standing Balance Unsteady Transfers Bed Transfer Ability Maximum x 1 (75% assist) Chair Transfer Maximum x 1 (75% assist) Ability Sit to Stand Bed Maximum x 1 (75% assist) Transfer Ability Rehab PT IP prob,goals,plan Problems Date of Evaluation: 03/19/25 PT IP Problems Bed Mobility,Transfers,Gait,Balance,Self care,Safety Rehab Potential Rehab Potential Good Plan PT Intervention Plan Bed Mobility,Transfers,Gait,Balance,Self care,Safety, Therapeutic Exercise Other Intervention 1-2 times Plan PT Plan Frequency Daily Duration LOS Discharge Goals Bed Transfer Ability Moderate x 1 (50% assist) Sit to Stand Chair Moderate x 1 (50% assist) Transfer Ability Discharge Plan PT Discharge Plan Initial physical therapy evaluation performed. Patient presents below baseline at this time in functional mobility, transfers, and strength. Pt not safe to return home at this time d/t current level of functional mobility. PT recommending short-term rehabilitation stay upon d/c from [facility]. Pt would benefit from skilled PT while at [facility] to prevent further functional decline and maximize safety with mobility. Eval Complexity Eval Charge Codes 89972 - Moderate Complexity PHYSICIAN CERTIFICATION: I certify the specified therapy services for Preet Montoya are required, authorized, and reviewed every 30 days.
--- NOTE | 2025-03-19 11:32 | HMH.OTEV ---
OT Inpatient Evaluation Rehab OT IP Evaluation Start: 03/19/25 07:41 Freq: ONCE Status: Active Protocol: Document 03/19/25 11:27 MARISELA (Rec: 03/19/25 11:32 MARISELA [id number]) Rehab OT IP Assessment Subjective History Per H&P: Mr. Montoya is a 74-year-old male presents to ER for evaluation of low blood pressure. Patient has a past medical history of type 2 diabetes mellitus, hypertension, hyperlipidemia, chronic kidney disease, morbid obesity, pulmonary embolism, deep vein thrombosis, iron and B12 deficiency anemia, and recent right knee replacement. Primary historian is patient's due to patient's complaint of hoarseness. She reports that patient had his right knee replaced on January 28, 2025. She states that patient was discharged after surgery and then admitted to the hospital for 2 weeks and then sent to rehab for 2 weeks. She states patient has been home for 2 weeks following rehab. She reports last week patient complained of nasal congestion, runny nose, and cough. She states she thought this was allergies. Over the last couple days patient has been sleeping and not, decreased appetite, and having daily nausea and vomiting. She states patient has tried to eat breakfast bar but has had vomiting with that as well. She states patient usually gets up every hour to urinate but last night he did not get up at all through the night. In the ER patient was catheterized with a 700 mL output. Patient denies any previous history of urinary retention. He states that he had no urge to urinate. Patient reports some dizziness due to low blood pressure today. Patient denies fever/ chills, chest pain, dyspnea, abdominal pain, lightheadedness, or syncope. Patient is on supplemental oxygen, he denies home O2 use. reports patient recently diagnosed with PE and DVT and is on Eliquis. Subjective It is my man cave. Pt supine in bed when therapy entered. Pt orient x3. pt agreeable to initial OT eval. Pt reported they live in home with basement. basement has 13 steps with Hand rails. pt reports he lives with who assists in ADLs and IADLs. Pt reports they have a ramp to enter home. pt reports they use walker and w/c for functional mobility. pt reports they have showerchair and grab bars. pt reports normally not on O2, currently on 2 L O2. Pt agreed to sit on EOB. Pt went from supine to EOB with Max A. Pt held static sitting balance with Mod A. Pt then laid back in bed with Max A. Pt left supine in bed with call light and all other needs within reach. Objective Patient Orientation Person,Place,Birthday Right Upper Mod Limitation 50% Extremity Gross ROM Left Upper Extremity Mod Limitation 50% Gross ROM Shoulder ROM Muscle Weakness Limitations Elbow ROM Muscle Weakness Limitations Bed Mobility bed mobility-scooting,bed mobility - supine/sit Assist Level Maximum x 1 (75% assist) Decrease in Yes Endurance Rehab OT IP prob,goals,plan Problems Date of Evaluation: 03/19/25 OT IP Problems Bed Mobility,Transfers,Balance,Self care,Safety Rehab Potential Rehab Potential Good Equipment Needs Assistive Devices Standard Walker,Rolling / Wheeled Walker,Wheelchair Plan OT intervention Plan Bed Mobility,Transfers,Balance,Self care,Safety, Therapeutic Exercise OT Plan Frequency Daily Duration LOS Discharge Goals Bed Mobility Ability Assistance x1 Sit to Stand Chair Moderate x 1 (50% assist) Transfer Ability Chair Transfer Moderate x 1 (50% assist) Ability Chair Transfer Sit to/from Ambulatory Technique Chair Transfer Rolling Walker Assistive Devices Feeding Ability Assist with Tray Set Up Commode/Toilet Raised Toilet Seat,Grab Bars Transfer Assistive Devices Decrease in No Endurance Discharge Plan OT Discharge Plan Pt presents below baseline at this time in endurance, transfers, and UB strength. Pt not safe to return home at this time d/t current level of functional mobility. OT recommending short-term rehabilitation stay upon d/c from [facility]. Pt would benefit from skilled acute OT while at [facility] to prevent further functional decline in occupational performance. Eval Complexity Eval Charge Codes 64038 - Moderate Complexity PHYSICIAN CERTIFICATION: I certify the specified therapy services for Preet Montoya are required, authorized, and reviewed every 30 days.
[2025-03-19 12:00] VITALS: BP 146/80; PULSE 78; RESP 16; TEMP 36.6; O2SAT 93
[2025-03-19 12:52] LABS: POC Glucose,Bedside 120 (70-110)
--- OUTSIDE RECORDS SUMMARY | 2025-03-19 14:09 | XMS_ITS | Encounter Summary ---
Author Organization [facility] Address [address] [place] [address] Care Team Providers Care Bad Work Gatherer Name Role Phone Nader Fields MD Primary Care Provider [phone] Encounter Details Date Type Department Care Team (Late Contact Info) Description 01/20/2025 Orders Only Medical Office Building Surgery Spine & Joint [address] [facility], [address] [place] [address] Leon Anne MD [address] [place] [address] Preop testing (Primary Dx) Social [...] Department Care Team (Late Contact Info) Description 03/25/2025 8:30 AM EDT Office Visit [facility] [address] [facility], 2nd [place] [address] Vince Neumann MD [address] [facility] [address] [place] [address] 06/18/2025 12:40 PM EDT Office Visit Medical Office Building Surgery Spine & Joint [address] [facility], [address] [place] [address] Leon Anne MD [address] [facility] [address] [place] [address] 07/31/2025 12:20 PM EST Office Visit [facility] [address] [facility] [address] [place] [address] Saroj Anderson MD 800 [place] [address] documented as of this encounter [...] documented as of this encounter Care Teams Bad Work Gatherer Relationship Specialty Start Date End Date Nader Fields MD [address] [facility] [address] [place] [address] PCP - General 06/16/24 documented as of this encounter
--- OUTSIDE RECORDS SUMMARY | 2025-03-19 14:09 | XMS_ITS | Encounter Summary ---
Author Organization [facility] Address [address] [place] [address] Care Team Providers Care Butadiene Convertor Operator Name Role Phone Nader Fields MD Primary Care Provider [phone] Encounter Details Date Type Department Care Team (Late st Contact Info) Description 03/18/2025 Orders Only External Location [address] [place] [address] Provider, External Social History Tobacco Use Types Packs/Day Years [...] any time in the past 12 m [facility], were you homeless or living in a detention (including now)? No 02/03/2025 Utilities Answer Date [...] Upcoming Encounters Date Type Department Care Team ([facility] st Contact Info) Description 03/25/2025 8:30 AM EDT Office Visit [facility] Res[facility] [address] , [address]nd [place] [address] Vince Neumann MD [address] [facility] [address] [place] [address] 06/18/2025 12:40 PM EDT Office Visit Medical Office Building Surgery Spine & Joint [address] [facility], [address] [place] [address] Leon Anne MD [address] [facility] [address] [place] [address] 07/31/2025 12:20 PM EST Office Visit [facility] [address] [place] [address] Saroj Anderson MD [address] [place] [address] documented as of this encounter Goals Goal Patient Goal Type Associated Problems Recent Progress Patient-Stated? Author Autogenerat ed Goal Care Plan Autogenerated Problem No Kallie Villa documented as of this encounter Procedures Procedure Name Priority Date/Time Associated Diagnosis Comments CT THORACIC OUTSIDE IMAGES 03/18/2025 6:10 PM EDT documented in this encounter Results * CT THORACIC OUTSIDE IMAGES (03/18/2025 6:10 PM EDT) Anatomical Region Laterality Modality Computed Tomogra phy 03/18/2025 6:10 PM EDT External Provider IMG CT PROCEDURES Final Result documented in this encounter [...] documented as of this encounter Care Teams Butadiene Convertor Operator Relationship Specialty Start Date End Date Nader Fields MD [address] [facility] [address] [place] [address] PCP - General 06/16/24 documented as of this encounter
--- OUTSIDE RECORDS SUMMARY | 2025-03-19 14:09 | XMS_ITS | Encounter Summary ---
Author Organization [facility] Address [address] [place] [address] Care Team Providers Care Staple Fiber Washer Name Role Phone Nader Fields MD Primary Care Provider [phone] Encounter Details Date Type Department Care Team [...] time in the past 12 m [facility], were you homeless or living in a assisted (including now)? No 02/03/2025 Utilities Answer Date Recorded In the past 12 months has th e ANPI, gas, oil, or water Soapbox threatened to shut off services in your [...] Pav [facility] Head[facility] Neck & Respiratory [address] [facility], 2nd [place] [address] Vince Neumann MD [address] [facility] [address] [place] [address] 06/18/2025 12:40 PM EDT Office Visit Medical Office Building Surgery Spine & Joint [address] [facility], [address] [place] [address] Leon Anne MD [address] [facility] [address] [place] [address] 07/31/2025 12:20 PM EST Office Visit [facility] [address] [facility] [address] [place] [address] Saroj Anderson MD 800 [place] [address] documented as of this encounter [...] documented as of this encounter Care Teams Staple Fiber Washer Relationship Specialty Start Date End Date Nader Fields MD [address] [facility] [address] [place] [address] PCP - General 06/16/24 documented as of this encounter
--- OUTSIDE RECORDS SUMMARY | 2025-03-19 14:09 | XMS_ITS | Encounter Summary ---
Author Organization [facility] Address [address] [place] [address] Care Team Providers Care Train Control Technician Name Role Phone Nader Fields MD Primary Care Provider [phone] Reason for Visit * Reason Onset Date Comments HCN - Patient Message 12/26/2024 Encounter Details Date Type Department Care Team ([facility] st Contact Info) Description 12/26/2024 Telephone Medical Office Building Surgery Spine & Joint [address] [facility], [address] [place] [address] Leon Anne MD [address] [facility] [address] [place] [address] HCN - Patient Message Social [...] surgery please call to advise Best contact number:[phone] Optimal time of day to reach caller: ANYTIME Additional comments/information from caller: None Note: Please do not reply to this message. Follow-up communication and further actions as a result of this message need to be communicated with the patient directly, if the patient is not active onMyChart. If the patient is active on MyChart, they will receive notification of the communication/outcome via [employer]. documented in this encounter Plan of Treatment Upcoming Encounters Date Type Department Care Team (Late st Contact Info) Description 03/25/2025 8:30 AM EDT Office Visit [facility] Res[facility] [address] [facility], 2nd [place] [address] Vince Neumann MD [address] [facility] [address] [place] [address] 06/18/2025 12:40 PM EDT Office Visit Medical Office Building Surgery Spine & Joint [address] [facility], [address] [place] [address] Leon Anne MD [address] [place] [address] 07/31/2025 12:20 PM EST Office Visit [facility] [address] [place] [address] Saroj Anderson MD [address] [place] [address] documented as of this encounter Visit Diagnoses [...] documented as of this encounter Care Teams Train Control Technician Relationship Specialty Start Date End Date Nader Fields MD [address] [place] [address] [address] [place] [address] PCP - General 06/16/24 documented as of this encounter
--- OUTSIDE RECORDS SUMMARY | 2025-03-19 14:10 | XMS_ITS | Encounter Summary ---
Author Organization [facility] Address [address] [place] [address] Care Team Providers Care Boatswains Mate Name Role Phone Nader Fields MD Primary Care Provider [phone] Encounter Details Date Type Department Care Team (Late Contact Info) Description 04/03/2024 Orders Only External Location 800 [place] [address] Kevin Zheng, DO [address] [place] [address] Social History Tobacco Use Types Packs/Day Years [...] Pav [facility] Head[facility] Neck & Respiratory [address] [facility], 2nd [place] [address] Vince Neumann MD [address] [facility] [address] [place] [address] 06/18/2025 12:40 PM EDT Office Visit Medical Office Building Surgery Spine & Joint [address] [facility], [address] [place] [address] Leon Anne MD [address] [facility] [address] [place] [address] 07/31/2025 12:20 PM EST Office Visit [facility] [address] [facility] [address] [place] [address] Saroj Anderson MD [address] [place] [address] documented as of this encounter Procedures Procedure [...] documented as of this encounter Care Teams Boatswains Mate Relationship Specialty Start Date End Date Nader Fields MD [address] [facility] [address] [place] [address] PCP - General 06/16/24 documented as of this encounter
--- OUTSIDE RECORDS SUMMARY | 2025-03-19 14:10 | XMS_ITS | Encounter Summary ---
Author Organization [facility] Address [address] [place] [address] Care Team Providers Care Record Changer Assembler Name Role Phone Nader Fields MD Primary Care Provider [phone] Encounter Details Date Type Department Care Team (Late st Contact Info) Description 03/18/2025 Orders Only External Location [address] [place] [address] Provider, External Social History Tobacco Use Types [...] any time in the past 12 m [facility], were you homeless or living in a alf (including now)? No 02/03/2025 Utilities Answer Date [...] Upcoming Encounters Date Type Department Care Team ([facility] st Contact Info) Description 03/25/2025 8:30 AM EDT Office Visit [facility] Res[facility] [address] 2[address] [place] [address] Vince Neumann MD [address] [facility] [address] [place] [address] 06/18/2025 12:40 PM EDT Office Visit Medical Office Building Surgery Spine & Joint [address] [facility], [address] [place] [address] Leon Anne MD [address] [facility] [address] [place] [address] 07/31/2025 12:20 PM EST Office Visit [facility] [address] [place] [address] Saroj Anderson MD [address] [place] [address] documented as of this encounter Goals [...] documented as of this encounter Care Teams Record Changer Assembler Relationship Specialty Start Date End Date Nader Fields MD [address] [facility] [address] [place] [address] PCP - General 06/16/24 documented as of this encounter
--- OUTSIDE RECORDS SUMMARY | 2025-03-19 14:10 | XMS_ITS | Encounter Summary ---
Author Organization [facility] Address [address] [place] [address] Care Team Providers Care Hairspring I Inspector Name Role Phone Nader Fields MD Primary Care Provider [phone] Reason for Visit * Reason Onset Date Comments HCN - Patient Message 01/30/2025 Encounter Details Date Type Department Care Team ([facility] st Contact Info) Description 01/30/2025 Telephone Medical Office Building Surgery Spine & Joint [address] [facility], [address] [place] [address] Leon Anne MD [address] [facility] [address] [place] [address] HCN - Patient Message Social [...] time in the past 12 m [facility], were you homeless or living in [...] goto rehab. Informed patient to go to [facility] ED since he is unable to walk [...] if he needs to go back to [facility]. She is requesting a call back. [...] will receive notification of the communication/outcome via [employer]. documented in this encounter Plan of Treatment Upcoming Encounters Date Type Department Care Team (Late st Contact Info) Description 03/25/2025 8:30 AM EDT Office Visit [facility] Ne[facility] Respiratory [address] , 2nd [place] [address] Vince Neumann MD [address] [facility] [address] [place] [address] 06/18/2025 12:40 PM EDT Office Visit Medical Office Building Surgery Spine & Joint [address] [facility], [address] [place] [address] Leon Anne MD [address] [facility] [address] [place] [address] 07/31/2025 12:20 PM EST Office Visit [facility] [address] [place] [address] Sraoj Anderson MD 800 [place] [address] documented as of this encounter [...] documented as of this encounter Care Teams Hairspring I Inspector Relationship Specialty Start Date End Date Nader Fields MD [address] [facility] [address] [place] [address] PCP - General 06/16/24 documented as of this encounter
--- OUTSIDE RECORDS SUMMARY | 2025-03-19 14:10 | XMS_ITS | Encounter Summary ---
Author Organization [facility] Address [address] [place] [address] Care Team Providers Care Bpo Specialist Name Role Phone Nader Fields MD Primary Care Provider [phone] Encounter Details Date Type Department Care Team [...] 1 Month) No 025 8:00 PM EDT Tessie Herrera 2. Non-Specific Active Suici fatuma Thoughts (Past 1 Month) No 01/28/2025 8:00 PM EDT Pasquale Herrera 6. Suicidal Behavior (Lifetime) No 8:00 PM EDT Javier Tessie documented as of this encounter Plan of Treatment Upcoming Encounters Date Type Department Care Team (Late st Contact Info) Description 03/25/2025 8:30 AM EDT Office Visit [facility] Head[facility] Neck [facility] Respiratory [address] [facility], 2nd [place] [address] Vince Neumann MD [address] [facility] [address] [place] [address] 06/18/2025 12:40 PM EDT Office Visit Medical Office Building Surgery Spine & Joint [address] [facility], [address] [place] [address] Leon Anne MD [address] [facility] [address] [place] [address] 07/31/2025 12:20 PM EST Office Visit [facility] [address] [facility] [address] [place] [address] Saroj Anderson MD [address] [place] [address] documented as of this encounter Goals Goal Patient Goal Type Associated Problems Recent Progress Patient-Stated? Author Autogenerat ed Goal Care Plan Autogenerated Problem No HrivKallie kendall documented as of this encounter Visit Diagnoses [...] documented as of this encounter Care Teams Bpo Specialist Relationship Specialty Start Date End Date Nader Fields MD [address] [facility] [address] [place] [address] PCP - General 06/16/24 documented as of this encounter
--- OUTSIDE RECORDS SUMMARY | 2025-03-19 14:10 | XMS_ITS | Encounter Summary ---
Author Organization [facility] Address [address] [place] [address] Care Team Providers Care Plugger Man Name Role Phone Nader Fields MD Primary Care Provider [phone] Encounter Details Date Type Department Care Team (Late Contact Info) Description 01/21/2025 Orders Only Medical Office Building Surgery Spine & Joint [address] [facility], [address] [place] [address] Leon Anne MD [address] [place] [address] Preop testing (Primary Dx) Social [...] Pav [facility] Head[facility] Neck & Respiratory [address] [facility], 2nd [place] [address] Vince Neumann MD [address] [facility] [address] [place] [address] 06/18/2025 12:40 PM EDT Office Visit Medical Office Building Surgery Spine & Joint [address] [facility], [address] [place] [address] Leon Anne MD [address] [facility] [address] [place] [address] 07/31/2025 12:20 PM EST Office Visit [facility] [address] [place] [address] [place] [address] Saroj Anderson MD [address] [place] [address] Scheduled Orders Name Type Priority [...] documented as of this encounter Care Teams Plugger Man Relationship Specialty Start Date End Date Nader Fields MD [address] [place] [id number] PCP - General 06/16/24 documented as of this encounter
--- OUTSIDE RECORDS SUMMARY | 2025-03-19 14:10 | XMS_ITS | Encounter Summary ---
Author Organization [facility] Address [address] [place] [address] Care Team Providers Care Director Compliance Name Role Phone Nader Fields MD Primary Care Provider [phone] Encounter Details Date Type Department Care Team [...] & Respiratory [address] , [address] [place] [address] Vince Neumann MD [address] [facility] [address] [place] [address] 06/18/2025 12:40 PM EDT Office Visit Medical Office Building Surgery Spine & Joint [address] [facility], [address] [place] [address] Leon Anne MD [address] [facility] [address] [place] [address] 07/31/2025 12:20 PM EST [facility] Visit [facility] [address] [facility] [address] [place] [address] Saroj Anderson MD 800 [place] [address] documented as of this encounter [...] documented as of this encounter Care Teams Director Compliance Relationship Specialty Start Date End Date Nader Fields MD [address] [place] [address] PCP - General 06/16/24 documented as of this encounter
--- OUTSIDE RECORDS SUMMARY | 2025-03-19 14:10 | XMS_ITS | Encounter Summary ---
Author Organization [facility] Address [address] [place] [address] Care Team Providers Care Slitting And Shipping Supervisor Name Role Phone Nader Fields MD Primary Care Provider [phone] Encounter Details Date Type Department Care Team (Late st Contact Info) Description 03/18/2025 Orders Only External Location 800 [place] [address] Provider, External Social History Tobacco Use Types [...] any time in the past 12 [facility], were you homeless or living in [...] Upcoming Encounters Date Type Department Care Team ([facility] st Contact Info) Description 03/25/2025 8:30 AM EDT Office Visit [facility] Head[facility] Neck [facility] Respiratory [address] [place] [address] Vince Neumann MD [address] [facility] [address] [place] [address] 06/18/2025 12:40 PM EDT Office Visit Medical Office Building Surgery Spine & Joint [address] [facility], [address] [place] [address] Leon Anne MD [address] [facility] 201 [place] [address] 07/31/2025 12:20 PM EST Office Visit [facility] [address] [place] [address] Saroj Anderson MD [address] [place] [address] documented as of this encounter Goals Goal Patient Goal Type Associated Problems Recent Progress Patient-Stated? Author Autogenerat ed Goal Care Plan Autogenerated Problem No Kallie Villa documented as of this encounter Procedures Procedure Name Priority Date/Time Associated Diagnosis Comments CT NEURO OUTSIDE IMAGES 03/18/2025 6:07 PM EDT documented in this encounter Results * CT NEURO OUTSIDE IMAGES (03/18/2025 6:07 PM EDT) Anatomical Region Laterality Modality Computed Tomogra phy 03/18/2025 6:07 PM EDT External Provider IMG CT PROCEDURES [...] documented as of this encounter Care Teams Slitting And Shipping Supervisor Relationship Specialty Start Date End Date Nader Fields MD [address] [facility] [address] [place] [address] PCP - General 06/16/24 documented as of this encounter
--- OUTSIDE RECORDS SUMMARY | 2025-03-19 14:10 | XMS_ITS | Encounter Summary ---
Author Organization [facility] Address [address] [place] [address] Care Team Providers Care Sharepoint Web Developer Name Role Phone Nader Fields MD Primary Care Provider [phone] Encounter Details Date Type Department Care Team ([facility] st Contact Info) Description 01/23/2025 Telephone Medical Office Building Surgery Spine & Joint [address] [facility], [address] [place] [address] Leon Anne MD [address] [place] [address] Social History Tobacco Use Types [...] Pav CC Head, Neck & Respiratory [address] [facility], 2nd [place] [address] Vince Neumann MD [address] [facility] [address] [place] [address] 06/18/2025 12:40 PM EDT Office Visit Medical Office Building Surgery Spine & Joint [address] [facility], [address] [place] [address] Leon Anne MD [address] [facility] [address] [place] [address] 07/31/2025 12:20 PM EST Office Visit [facility] [address] [facility] [address] [place] [address] Saroj Anderson MD 800 [place] [address] documented as of this encounter [...] documented as of this encounter Care Teams Sharepoint Web Developer Relationship Specialty Start Date End Date Nader Fields MD [address] [place] [address] PCP - General 06/16/24 documented as of this encounter
--- OUTSIDE RECORDS SUMMARY | 2025-03-19 14:10 | XMS_ITS | Encounter Summary ---
Author Organization [facility] Address [address] [place] [address] Care Team Providers Care Wildlife Biology Internship Name Role Phone Nader Fields MD Primary Care Provider [phone] Encounter Details Date Type Department Care Team [...] any time in the past 12 m [facility], were you homeless or living in a mcfp (including now)? No 02/03/2025 Utilities Answer Date Recorded In the past 12 months has th e Copyright Agent, gas, oil, or water [employer] threatened to shut off services in your [...] Upcoming Encounters Date Type Department Care Team ([facility] Contact Info) Description 03/25/2025 8:30 AM EDT Office Visit Pav CC Head, Neck & Respiratory [address] [facility], 2nd [place] [address] Vince Neumann MD [address] [facility] [address] [place] [address] 06/18/2025 12:40 PM EDT Office Visit Medical Office Building Surgery Spine & Joint [address] [facility], [address] [place] [address] Leon Anne MD [address] [facility] [address] [place] [address] 07/31/2025 12:20 PM EST [facility] [address] [facility] [facility] [address] [place] [address] Saroj Anderson MD [address] [place] [address] documented as of this encounter [...] documented as of this encounter Care Teams Wildlife Biology Internship Relationship Specialty Start Date End Date Nader Fields MD [address] [facility] [facility] [facility] [address] [place] [address] PCP - General 06/16/24 documented as of this encounter
--- OUTSIDE RECORDS SUMMARY | 2025-03-19 14:11 | XMS_ITS | Encounter Summary ---
Author Organization [facility] Address [address] [place] [address] Care Team Providers Care Promotions Executive Producer Name Role Phone Nader Fields MD Primary Care Provider [phone] Encounter Details Date Type Department Care Team [...] any time in the past 12 m [facility], were you homeless or living [...] Encounters Date Type Department Care Team ([facility] Contact Info) Description 03/25/2025 8:30 AM EDT Office Visit Pav [facility] Head, Neck & Respiratory [address] [place] [address] Vince Neumann MD [address] [facility] [address] [place] [address] 06/18/2025 12:40 PM EDT Office Visit Medical Office Building Surgery Spine & Joint [address] [facility], [address] [place] [address] Leon Anne MD [address] [facility] [address] [place] [address] 07/31/2025 12:20 PM EST Office Visit [facility] [address] [place] [address] Saroj Anderson MD [address] [place] [address] documented as of this encounter Goals [...] documented as of this encounter Care Teams Promotions Executive Producer Relationship Specialty Start Date End Date Nader Fields MD [address] [facility] [address] [place] [address] PCP - General 06/16/24 documented as of this encounter
--- OUTSIDE RECORDS SUMMARY | 2025-03-19 14:11 | XMS_ITS | Encounter Summary ---
Author Organization [facility] Address [address] [place] [address] Care Team Providers Care Farmworker Name Role Phone Nader Fields MD Primary Care Provider Encounter Details Date Type Department Care Team (Late Contact Info) Description 04/03/2024 Orders Only External Location [address] [place] [address] Kevin Zheng, DO [address] [place] [address] [place] [address] Social History Tobacco Use Types Packs/Day Years [...] Pav CC Head, Neck & Respiratory [address] [facility], 2nd [place] [address] Vince Neumann MD [address] [facility] [address] [place] [address] 06/18/2025 12:40 PM EDT Office Visit Medical Office Building Surgery Spine & Joint [address] [facility], [address] [place] [address] Leon Anne MD [address] [facility] [place] [facility] [address] [place] [address] 07/31/2025 12:20 PM EST [facility] [address] [facility] [address] [place] [address] Saroj Anderson MD [address] [place] [address] documented as of this encounter [...] documented as of this encounter Care Teams Farmworker Relationship Specialty Start Date End Date Nader Fields MD [address] [facility] [address] [place] [address] PCP - General 06/16/24 documented as of this encounter
--- OUTSIDE RECORDS SUMMARY | 2025-03-19 14:11 | XMS_ITS | Encounter Summary ---
Author Organization [facility] Address [address] [place] [address] Care Team Providers Care Cotton Grader Name Role Phone Nader Fields MD Primary Care Provider [phone] Reason for Referral * Home Health (Routine) - Authorized Specialty Diagnoses / Procedures Referred By Jean post Referred To Contact Home Health Services / Orthopaedic Surgery Diagnoses S/P total knee arthroplasty, right Leon Anne MD [address] [facility] [address] [place] [address] Phone: tel: fax: Referral ID Status Reason Start Date Expiration Date Visits Requested Visits Authorized [id number] Authorized Specialty Services Required 03/09/2025 09/08/2026 [id number] Encounter Details Date Type Department Care Team (Late st Contact Info) Description 03/09/2025 Orders Only Medical Office Building Surgery Spine & Joint [address] [place] [address] Leon Anne MD [address] [facility] [address] [place] [address] S/P total knee arthroplasty, right [...] in the past 12 m [facility], were you homeless or living [...] Upcoming Encounters Date Type Department Care Team ([facility] st Contact Info) Description 03/25/2025 8:30 AM EDT Office Visit Pav CC Head, Neck & Respiratory [address] [facility], 2nd [place] [address] Vince Neumann MD [address] [place] [address] 06/18/2025 12:40 PM EDT Office Visit Medical Office Building Surgery Spine & Joint [address] [facility], [address] [place] [address] Leon Anne MD [address] [facility] [address] [place] [address] 07/31/2025 12:20 PM EST Office Visit [facility] [address] [place] [address] Saroj Anderson MD [address] [place] [address] Scheduled Referrals Name Type Priority [...] documented as of this encounter Care Teams Cotton Grader Relationship Specialty Start Date End Date Nader Fields MD [address] [facility] [address] [place] [address] PCP - General 06/16/24 documented as of this encounter
--- OUTSIDE RECORDS SUMMARY | 2025-03-19 14:11 | XMS_ITS | Encounter Summary ---
Author Organization [facility] Address [address] [place] [address] Care Team Providers Care Cup Machine Operator Name Role Phone Nader Fields MD Primary Care Provider [phone] Reason for Visit * Reason Onset Date Comments HCN - Patient Message 03/09/2025 Encounter Details Date Type Department Care Team ([facility] st Contact Info) Description 03/09/2025 Telephone Medical Office Building Surgery Spine & Joint [address] [facility], [address] [place] [address] Leon Anne MD [address] [facility] [address] [place] [address] HCN - Patient Message Social [...] time in the past 12 m [facility], were you homeless or living in [...] 9:44 AM EDT Sent message to Jas Robbins to see if Ethan could accept. * Telephone Encounter - Jackeline Mora Rubens - 03/09/2025 1:54 PM EDT Clinical Concern/Question Reason for Call: [facility] and needs an order for in home PT. She is asking that the clinic reach out to the pt. Best contact number: [phone] (mobile) Optimal time of day to reach caller: ANYTIME Additional comments/information from caller: None Note: Please do not reply to this message. Follow-up communication and further actions as a result of this message need to be communicated with the patient directly, if the patient is not active onMyChart. If the patient is active on MyChart, they will receive notification of the communication/outcome via [facility]. documented in this encounter Plan of Treatment Upcoming Encounters Date Type Department Care Team (Late st Contact Info) Description 03/25/2025 8:30 AM EDT Office Visit Pav CC Head, Neck & Respiratory [address] , [address] [place] [address] Vince Neumann MD [address] [facility] [address] [place] [address] 06/18/2025 12:40 PM EDT Office Visit Medical Office Building Surgery Spine & Joint [address] [facility], [address] [place] [address] Leon Anne MD [address] [facility] [address] [place] [address] 07/31/2025 12:20 PM EST Office Visit [facility] [address] [place] [address] Saroj Anderson MD [address] [place] [address] documented as of this encounter Goals Goal [...] documented as of this encounter Care Teams Cup Machine Operator Relationship Specialty Start Date End Date Nader Fields MD [facility] [address] [place] [address] PCP - General 06/16/24 documented as of this encounter
--- OUTSIDE RECORDS SUMMARY | 2025-03-19 14:11 | XMS_ITS | Encounter Summary ---
Author Organization [facility] Address [address] [place] [address] Care Team Providers Care Lead Mechanical Engineer Name Role Phone Nader Fields MD Primary Care Provider [phone] Encounter Details Date Type Department Care Team [...] any time in the past 12 m [facility], were you homeless or living in a fpc (including now)? No 02/03/2025 Utilities Answer Date [...] Upcoming Encounters Date Type Department Care Team ([facility] Contact Info) Description 03/25/2025 8:30 AM EDT Office Visit Pav CC Head, Neck & Respiratory [address] , 2[address] [place] [address] Vince Neumann MD [address] [facility] [address] [place] [address] 06/18/2025 12:40 PM EDT Office Visit Medical Office Building Surgery Spine & Joint [address] [facility], [address] [place] [address] Leon Anne MD [address] [facility] [address] [place] [address] 07/31/2025 12:20 PM EST Office Visit [facility] [address] [place] [address] Saroj Anderson MD [address] [place] [address] documented as of this encounter Goals [...] documented as of this encounter Care Teams Lead Mechanical Engineer Relationship Specialty Start Date End Date Nader Fields MD [address] [facility] [address] [place] [address] PCP - General 06/16/24 documented as of this encounter
--- OUTSIDE RECORDS SUMMARY | 2025-03-19 14:11 | XMS_ITS | Encounter Summary ---
Author Organization [facility] Address [address] [place] [address] Care Team Providers Care Tare Worker Name Role Phone Nader Fields MD Primary Care Provider [phone] Encounter Details Date Type Department Care Team ([facility] st Contact Info) Description 03/16/2025 Orders Only Medical Office Building Surgery Spine & Joint [address] [facility], [address] [place] [address] Leon Anne MD [address] [place] [address] Social History Tobacco Use Types [...] time in the past 12 m [facility], were you homeless or living [...] CC Head, Neck & Respiratory [address], [address] [place] [address] Vince Neumann MD [address] [facility] [address] [place] [address] 06/18/2025 12:40 PM EDT Office Visit Medical Office Building Surgery Spine & Joint [address] [facility], [address] [place] [address] Leon Anne MD [address] [place] [address] 07/31/2025 12:20 PM EST Office Visit [facility] [address] [facility] [address] [place] [address] Saroj Anderson MD [address] [place] [address] documented as of this encounter [...] documented as of this encounter Care Teams Tare Worker Relationship Specialty Start Date End Date Nader Fields MD [address] [facility] [address] [place] [address] PCP - General 06/16/24 documented as of this encounter
--- OUTSIDE RECORDS SUMMARY | 2025-03-19 14:11 | XMS_ITS | Clinical Summary ---
Author Organization [facility] Address [address] [place] [address] Care Team Providers Care Staff Air Defense Officer Name Role Phone Nader Fields MD Primary Care Provider [phone] Allergies Active Allergy Reactions Criticality Noted Date [...] tablet by mouth daily. Active nystatin (Mycostatin) 374834 UNIT/GM powder Apply to skin folds twice [...] 6 hours as needed for pain. Under [place] law, monthly prescriptions (30 days) can be [...] by mouth nightly. 02/08/20 Active nystatin (Mycostatin) 384078 UNIT/GM powder Apply to skin folds twice [...] organization. Date Type Department Care Team Description 03/18/2025 Orders Only External Location [address] [place] [address] Provider, External 03/18/2025 Orders Only External Location [address] [place] [address] Provider, External 03/18/2025 Orders Only External Location [address] [place] [address] Provider, External 03/17/2025 11:30 AM EDT Office Visit Medical Office Building [facility] [address], [address] [place] [address] Leon Anne MD S/P total knee arthroplasty, right (Primary Dx) 03/17/2025 10:57 AM EDT - 03/17/2025 11:59 PM EDT Hospital Encounter Medical Office Building Radiology [address] [place] [address] S/P total knee arthroplasty, right Discharge Disposition: Home or Self Care 03/17/2025 Travel 03/16/2025 Orders Only Medical Office Building [facility] [address], [address] [place] [address] Leon Anne MD 03/13/2025 Telephone Medical Office Building [facility] [address], [address] [place] [address] Leon Anne MD HCN - Patient Message 03/09/2025 Orders Only Medical Office Building [facility] [address], [address] [place] [address] Leon Anne MD S/P total knee arthroplasty, right (Primary Dx) 03/09/2025 Telephone Medical Office Building [facility] [address], [address] [place] [address] Leon Anne MD HCN - Patient Message 02/12/2025 10:20 AM EDT Office Visit Medical Office Building [facility] [address], [address] [place] [address] Liya Soto PA S/P total knee arthroplasty, right (Primary Dx) 02/12/2025 Travel 02/05/2025 Travel 02/03/2025 Travel 02/02/2025 Travel 01/30/2025 Telephone Medical Office Building Surgery [facility] [address] [facility], [address] [place] [address] Leon Anne MD HCN - Patient Message 01/28/2025 11:40 AM EDT Anesthesia Event [facility] Operating Room [address] [place] [address] Ja Alexandre, Kwasi Avalos MD 01/28/2025 11:00 AM EDT - 01/28/2025 1:30 PM EDT Surgery [facility] Operating Room [address] [place] [address] Leon Anne MD ARTHROPLASTY, KNEE, TOTAL, USING COMPUTER-ASSISTED NAVIGATION [[id number] (CPT )] 01/28/2025 7:52 AM EDT - 01/29/2025 3:31 PM EDT Hospital Encounter [facility] Inpatient [address] [place] [address] Leon Anne MD Arthritis of right knee (Primary Dx) Discharge Disposition: Home or Self Care 01/28/2025 Travel 01/23/2025 Travel 01/23/2025 Telephone Medical Office Building [facility] [address] [facility], [address] [place] [address] Leon Anne MD 01/21/2025 Orders Only Medical Office Building Surgery [facility] [address] [facility], [address] [place] [address] Leon Anne MD Preop testing (Primary Dx) 01/20/2025 Orders Only Medical Office Building Surgery [facility] [address] [facility], [address] [place] [address] Leon Anne MD Preop testing (Primary Dx) 12/26/2024 Telephone Medical Office Building [facility] [address] [facility], [address] [place] [address] Leon Anne MD HCN - Patient Message 12/17/2024 2:00 PM EDT Pre-Admission Testing [facility] Anesthesia [address] [place] [address] Preop examination (Primary Dx) 12/17/2024 Travel from [...] any time in the past 12 m [facility], were you homeless or living in a mcc (including now)? No 02/03/2025 Utilities Answer Date Recorded In the past 12 months has th e [employer], gas, oil, or water [employer] threatened to shut off services in your home? No 02/03/2025 Sex and Gender Information Value Date Recorded Sex Assigned at Not on file Legal Sex Male 10:03 AM EDT Gender Identity Not on file Sexual Orientation Not on file Last Filed Vital Signs Vital Sign Reading Time Taken Comments Blood Pressure 97/58 03/18/2025 7:42 PM EDT Pulse 76 03/18/2025 7:42 PM EDT Temperature 36.6 C (97.9 F) 03/18/2025 7:42 PM EDT Respiratory Rate 19 03/18/2025 7:42 PM EDT Oxygen Saturation 96% 03/18/2025 7:4 2 PM EDT 2 liters NC Inhaled Oxygen Concentration - - Weight 136 kg (299 lb 13.2 oz) 03/17/20 11:58 AM EDT Height 182.9 cm (6') 03/17/2025 11:58 AM EDT Body Mass Index 40.66 03/17/2025 11:58 AM EDT Plan of Treatment Upcoming Encounters Date Type Department Care Team (Late st Contact Info) Description 03/25/2025 8:30 AM EDT Office Visit [facility] [address] , [address] [place] [address] Vince Neumann MD [address] [facility] [address] [place] [address] 06/18/2025 12:40 PM EDT Office Visit Medical Office Building Surgery Sp[facility] [address] [facility], [address] [place] [address] Leon Anne MD [address] [facility] [address] [place] [address] 07/31/2025 12:20 PM EST Office Visit [facility] [address] [place] [address] Saroj Anderson MD [address] [place] [address] Health Maintenance Due Date Last Done [...] - Risk 60-74 years 1-dose series) 2010 [id number] Vaccine ( season) 2024 03/15/2022, 07/27/2021, 12/01/2020, Additional history exists [facility]-Influenza Vaccine (Season Ended) 2025 [facility]-Diabetes: Hemoglobin A1C 06/16/2025 12/17/2024 [facility]- SDOH Screenings 08/06/2025 [facility]-Adult SDOH Screenings 08/06/2025 02/03/2025 [facility]-Depression Screening 12/12/2025 12/12/2024, 05/2025 [facility]-Obesity Intervention Completed 025, 02/12/2025, 02/02/2025, [...] [employer] Implanted Type Area Shirt Folder Device Identifier Shelf Expiration Date Model / Serial / Lot Cement Palacos Mv - [id number] Implanted:Qty: 3 on 01/28/2025 by Leon Anne MD at [facility] Right: Knee [employer]-[id number] 03/23/2029 [id number] / / [id number] Chg Tibial [employer] Coping Machine Operator R - [id number] Implanted:Qty: 1 on 01/28/2025 by Leon Anne MD at [facility] Right: Knee [employer]-[id number] 07/21/2034 [id number] / / [id number] Chg Patella Gii Oval Resurfaci - [id number] Implanted:Qty: 1 on 01/28/2025 by Leon Anne MD at [facility] Right: Knee [employer]-[id number] 10/11/2032 [id number] / / [id number] Jrny Ii Bcs Femoral Oxin Rt Sz - [id number] Implanted:Qty: 1 on 01/28/2025 by Leon Anne MD at [facility] Right: Knee [employer]-[id number] 07/06/2034 [id number] / / [id number] Jrny Ii Bcs Xlpe Art Isrt Sz 7 - [id number] Implanted:Qty: 1 on 01/28/2025 by Leon Anne MD at [facility] Right: Knee [employer]-[id number] 07/08/2032 [id number] / / [id number] Procedures Procedure Name Priority Date/Time Associated Diagnosis Comments CT THORACIC OUTSIDE IMAGES 03/18/2025 6:[address] THORACIC OUTSIDE IMAGES 03/18/2025 6:[address] NEURO OUTSIDE IMAGES 03/18/2025 6:07 PM EDT XR KNEE RIGHT 1 OR [...] ANESTHESIA PLACEHOLDER Routine 01/28/2025 11:54 AM EDT MN AN ELECTIVE ENDOTRACHEAL AIRWAY Routine 01/28/2025 11:54 AM EDT MN TOTAL KNEE ARTHROPLASTY 01/28/2025 11:27 AM EDT [...] examination from Last 3 Months Results * CT THORACIC OUTSIDE IMAGES (03/18/2025 6:10 PM EDT) Only the most recent of2 resultswithin the time period is included. Anatomical Region Laterality Modality Computed Tomogra phy 03/18/2025 6:10 PM EDT us External Provider IMG CT PROCEDURES Final Result * CT NEURO OUTSIDE IMAGES (03/18/2025 6:07 PM EDT) Anatomical Region Laterality Modality Computed Tomogra phy 03/18/2025 6:07 PM EDT us External Provider IMG CT PROCEDURES Final Result * XR Knee Right 1 or 2 [...] 03/17/2025 11:40 AM Final report signed by oLn Stevenson MD on 03/17/2025 12:57 PM Liya CORONA IMG XR PROCEDURES Final Resul t * (ABNORMAL) POCT glucose meter (02/07/2025 12:19 PM EDT) Only the most recent of27 resultswithin the time period is included. POCT Glucose 169(H) 74 - 99 mg/dL 02/07/2025 12:22 PM EDT [facility] Comment:Accuracy of [...] Comment 02/07/2025 12:22 PM EDT HEALTHCARE LAB Multimedia Teacher ID Mohinder Verdin 02/07/2025 12:22 PM EDT HEALTHCARE LAB Device ID [id number] 02/07/2025 12:22 PM EDT [facility]ALTH[facility]ARE [facility] Specimen Type POC Capillary 02/07/2025 12:22 PM EDT [facility] Blood Capillary blood specimen / Unknown 02/07/2025 12:19 PM EDT 02/07/2025 12:22 PM EDT Nithya Doyle DO LAB POINT OF CAR E TEST DOCKED DEVICE UNSOLICITED RESULTS Final Result Performing Organization Address City/State/[facility] Co de Phone Number HEALTHCARE LAB [address] [place], [place] [id number] * XR Chest 1 View (02/05/2025 10:52 [...] Thom Kingston MD on 02/05/2025 3:39 PM Nithya Doyle IMG XR PROCEDURES Final Result * (ABNORMAL) CBC and Differential (02/04/2025 3:14 AM EDT) Only the most recent of3 resultswithin the time period is included. WBC Count 7.98 3.70 - 10.30 10*3/uL LAB HEMATOLOGY METHOD 02/04/2025 3:32 AM EDT [facility] RBC Count 3.48(L) 4.60 - 6.10 10*6/uL LAB HEMATOLOGY METHOD 02/04/2025 3:32 AM EDT [facility] HGB 9.9(L) 13.7 - 17.5 g/dL LAB HEMATOLOGY METHOD 02/04/2025 3:32 AM EDT [facility] HCT 30.7(L) 40.0 - 51.0 % LAB HEMATOLOGY METHOD 02/04/2025 3:32 AM EDT [facility] Platelet Count 356 155 - 369 10*3/uL LAB HEMATOLOGY METHOD 02/04/2025 3:32 AM EDT [facility] MCV 88 79 - 98 fL LAB HEMATOLOGY METHOD 02/04/2025 3:32 AM EDT [facility] MCH 28.4 26.0 - 32.0 pg LAB HEMATOLOGY METHOD 02/04/2025 3:32 AM EDT [facility] MCHC 32.2 30.7 - 35.5 g/dL LAB HEMATOLOGY METHOD 02/04/2025 3:32 AM EDT [facility] RDW 13.0 11.5 - 14.5 % LAB HEMATOLOGY METHOD 02/04/2025 3:32 AM EDT [facility] MPV 8.7(L) 8.8 - 12.5 fL LAB HEMATOLOGY METHOD 02/04/2025 3:32 AM EDT [facility] nRBC 0.0 <=0.0 per 100 WBCs LAB HEMATOLOGY METHOD 02/04/2025 3:32 AM EDT [facility] Differential Type Automated LAB HEMATOLOGY METHOD 02/04/2025 3:32 AM EDT [facility] Neutrophils % 58 % LAB HEMATOLOGY METHOD 02/04/2025 3:32 AM EDT [facility] Lymphocytes % 20 % LAB HEMATOLOGY METHOD 02/04/2025 3:32 AM EDT [facility] Monocytes % 14 % LAB HEMATOLOGY METHOD 02/04/2025 3:32 AM EDT [facility]ALTH[facility] Eosinophils % 6 % LAB HEMATOLOGY METHOD 02/04/2025 3:32 AM EDT [facility] Basophils % 1 % LAB HEMATOLOGY METHOD 02/04/2025 3:32 AM EDT [facility] Immature Granulocytes % 1 % LAB HEMATOLOGY METHOD 02/04/2025 3:32 AM EDT [facility] Neutrophils Absolute 4.72 1.60 - 6.10 10*3/uL LAB HEMATOLOGY METHOD 02/04/2025 3:32 AM EDT [facility] Lymphocytes Absolute 1.57 1.20 - 3.90 10*3/uL LAB HEMATOLOGY METHOD 02/04/2025 3:32 AM EDT [facility] Monocytes Absolute 1.09(H) 0.30 - 0.90 10*3/uL LAB HEMATOLOGY METHOD 02/04/2025 3:32 AM EDT [facility] Eosinophils Absolute 0.51(H) 0.00 - 0.50 10*3/uL LAB HEMATOLOGY METHOD 02/04/2025 3:32 AM EDT [facility] Basophils Absolute 0.04 0.00 - 0.10 10*3/uL LAB HEMATOLOGY METHOD 02/04/2025 3:32 AM EDT [facility] Immature Granulocytes Absolute 0.05 0.00 - 0.06 10*3/uL LAB HEMATOLOGY METHOD 02/04/2025 3:32 AM EDT [facility] Blood Venous blood specimen / Unknown Venipuncture / Unknown 02/04/2025 3:14 AM EDT 02/04/2025 3:26 AM EDT Narrative [facility] - 02/04/2025 3:32 AM EDT Therapeutic decision making should be based on absolute values, rather than percentages. [facility] LAB BLOOD ORDERABLES Fin al Result Performing Organization Address City/[facility] Co de Phone Number [facility] [address] [place] [address] * Magnesium (02/04/2025 3:14 AM EDT) Only the most recent of3 resultswithin the time period is included. Magnesium, Plasma 1.9 1.9 - 2.4 mg/dL 02/04/2025 9:14 AM EDT [facility] Blood Venous blood specimen / Unknown Venipuncture / Unknown 02/04/2025 3:14 AM EDT 02/04/2025 3:23 AM EDT [facility] LAB BLOOD ORDERABLES Fin al Result Performing Organization Address City/[facility] Co de Phone Number [facility] [address] [place] [address] * (ABNORMAL) Basic metabolic panel (02/04/2025 3:14 AM EDT) Only the most recent of3 resultswithin the time period is included. Glucose, Plasma 138(H) 74 - 99 mg/dL 02/04/2025 3:52 AM EDT [facility] BUN, Plasma 32(H) 8 - 23 mg/dL 02/04/2025 3:52 AM EDT [facility] Creatinine, Plasma 1.42(H) 0.70 - 1.20 mg/dL 02/04/2025 3:52 AM EDT [facility] BUN/Creatinine Ratio 23 02/04/2025 3:52 AM EDT [facility] Sodium, Plasma 136 136 - 145 mmol/L 02/04/2025 3:52 AM EDT [facility] Potassium, Plasma 3.9 3.6 - 4.9 mmol/L 02/04/2025 3:52 AM EDT [facility] Chloride, Plasma 98 97 - 107 mmol/L 02/04/2025 3:52 AM EDT [facility] CO2, Plasma 25 22 - 29 mmol/L 02/04/2025 3:52 AM EDT [facility] Anion Gap 13 6 - 16 mmol/L 02/04/2025 3:52 AM EDT [facility] Total Calcium, Plasma 9.1 8.9 - 10.2 mg/dL 02/04/2025 3:52 AM EDT [facility] eGFRcr 51.9 mL/min/1.7 3m*2 02/04/2025 3:52 AM EDT [facility] Comment:Reported eGFRcr in m L/min/1.73m2 is based the CKD-EPI 2020 equation that does not use a race coefficient. Blood Venous blood specimen / Unknown Venipuncture / Unknown 02/04/2025 3:14 AM EDT 02/04/2025 3:23 AM EDT Nithya Doyle DO LAB BLOOD ORDERABLES Fin al Result [facility] [address] [place] [address] * XR Abdomen 1 View (02/03/2025 6:01 [...] Jeanette Holloway MD on 02/03/2025 6:15 PM Nithya Doyle DO IMG XR PROCEDURES Final Result * Blood Culture (Aerobic/Anaerobet Set) (02/03/2025 10:01 AM EDT) Only the most recent of4 resultswithin the time period is included. Culture No growth at day 5 02/08/2025 12:01 PM EDT [facility] Blood Structure of left hand / Unknown Venipuncture / Unknown 02/03/2025 10:01 AM EDT 02/03/2025 10:16 AM EDT Nithya Doyle DO LAB MICROBIOLOGY - GENER AL ORDERABLES Final Result [facility] [address] [place] [address] * VAS US Venous Duplex Lower Extremity [...] is no recent study available for direct [id number] comparison. Left Ventricle The left ventricle is [...] is no recent study available for direct [id number] comparison. Nithya Doyle DO CV ECHO PROCEDURES Final Result * Nasopharyngeal Respiratory Panel (02/03/2025 8:29 AM EDT) Nasopharyngeal Respiratory PCR Interpretation Not Detected for all analytes Not Detected for all analytes 02/03/2025 1:34 PM EDT [facility] Swab Nasopharyngeal structure / Unknown Non-blood Collection / Unknown 02/03/2025 8:29 AM EDT 02/03/2025 8:46 AM EDT Narrative [facility] - 02/03/2025 1:34 PM EDT [...] Respiratory PCR Panel is performed using the Travefylex instrument. This test is FDA approved for use with Nasopharyngeal swabs only. This test is used for clinical purposes. It should not be regarded as investigational or for research. The [facility] Clinical Microbiology Laboratory is certified under the Clinical Laboratory Improvement Amendments of 1988 (CLIA-88) as qualified to perform high complexity clinical laboratory testing. Nithya Doyle DO LAB MICROBIOLOGY - [facility] AL ORDERABLES Final Result [facility] [address] [place] [address] * (ABNORMAL) Blood gas panel, arterial (02/03/2025 8:05 AM EDT) pH, Arterial 7.45(H) 7.31 - 7.42 LAB HEMATOLOGY METHOD 02/03/2025 8:12 AM EDT [facility] pCO2, Arterial 43 32 - 45 mmHg LAB HEMATOLOGY METHOD 02/03/2025 8:12 AM EDT [facility] pO2, Arterial 64(L) >70 mmHg LAB HEMATOLOGY METHOD 02/03/2025 8:12 AM EDT [facility] SO2, Measured, Arterial 93(L) 94 - 98 % LAB HEMATOLOGY METHOD 02/03/2025 8:12 AM EDT [facility] Base Excess, Arterial 5.4(H) -2.0 - 3.0 mmol/L LAB HEMATOLOGY METHOD 02/03/2025 8:12 AM EDT [facility] Bicarbonate, Calculated, Arterial 30(H) 22 - 26 mmol/L LAB HEMATOLOGY METHOD 02/03/2025 8:12 AM EDT [facility] Hematocrit, Whole Blood 29.6(L) 40.0 - 51.0 % LAB HEMATOLOGY METHOD 02/03/2025 8:12 AM EDT [facility] Sodium, Whole Blood 139 136 - 145 mmol/L LAB HEMATOLOGY METHOD 02/03/2025 8:12 AM EDT [facility] Potassium, Whole Blood 3.6 3.6 - 4.9 mmol/L LAB HEMATOLOGY METHOD 02/03/2025 8:12 AM EDT [facility] Chloride, Whole Blood 97 97 - 107 mmol/L LAB HEMATOLOGY METHOD 02/03/2025 8:12 AM EDT [facility] Glucose, Whole Blood 135(H) 74 - 99 mg/dL LAB HEMATOLOGY METHOD 02/03/2025 8:12 AM EDT [facility] Ionized Calcium, Whole Blood 4.7 4.6 - 5.1 mg/dL LAB HEMATOLOGY METHOD 02/03/2025 8:12 AM EDT [facility] Lactate, Arterial, Whole Blood 0.7 0.5 - 1.6 mmol/L LAB HEMATOLOGY METHOD 02/03/2025 8:12 AM EDT [facility] Blood Arterial blood specimen / Unknown Arterial Puncture / Unknown 02/03/2025 8:05 AM EDT 02/03/2025 8:10 AM EDT us Nithya Doyle DO LAB BLOOD ORDERABLES Fin al Result [facility] [address] [place] [address] * (ABNORMAL) Comprehensive metabolic panel (02/03/2025 3:46 AM EDT) Only the most recent of2 resultswithin the time period is included. Glucose, Plasma 133(H) 74 - 99 mg/dL 02/03/2025 4:26 AM EDT [facility] BUN, Plasma 33(H) 8 - 23 mg/dL 02/03/2025 4:26 AM EDT [facility] Creatinine, Plasma 1.46(H) 0.70 - 1.20 mg/dL 02/03/2025 4:26 AM EDT [facility] BUN/Creatinine Ratio 23 02/03/2025 4:26 AM EDT [facility] Sodium, Plasma 134(L) 136 - 145 mmol/L 02/03/2025 4:26 AM EDT [facility] Potassium, Plasma 3.7 3.6 - 4.9 mmol/L 02/03/2025 4:26 AM EDT [facility] Chloride, Plasma 96(L) 97 - 107 mmol/L 02/03/2025 4:26 AM EDT [facility] CO2, Plasma 25 22 - 29 mmol/L 02/03/2025 4:26 AM EDT [facility] Anion Gap 13 6 - 16 mmol/L 02/03/2025 4:26 AM EDT [facility] Total Calcium, Plasma 9.0 8.9 - 10.2 mg/dL 02/03/2025 4:26 AM EDT [facility] Total Protein 7.1 6.3 - 7.9 g/dL 02/03/2025 4:26 AM EDT [facility] Albumin, Plasma 3.2(L) 3.5 - 5.2 g/dL 02/03/2025 4:26 AM EDT [facility] AST, Plasma 22 10 - 50 U/L 02/03/2025 4:26 AM EDT [facility] ALT, Plasma <5(L) 10 - 50 U/L 02/03/2025 4:26 AM EDT [facility] Alkaline Phosphatase, Plasma 70 40 - 115 U/L 02/03/2025 4:26 AM EDT [facility] Total Bilirubin, Plasma 0.3 0.2 - 1.1 mg/dL 02/03/2025 4:26 AM EDT [facility] eGFRcr 50.2 mL/min/1.7 3m*2 02/03/2025 4:26 AM EDT [facility] Comment:Reported eGFRcr in m L/min/1.73m2 is based the CKD-EPI 2020 equation that does not use a race coefficient. Blood Venous blood specimen / Unknown Venipuncture / Unknown 02/03/2025 3:46 AM EDT 02/03/2025 3:59 AM EDT us Nithya Doyle DO LAB BLOOD ORDERABLES Fin al Result [facility] [address] [place] [address] * CT Angio Pulmonary Embolism (02/02/2025 5:37 [...] pulmonary embolism was discussed via secure chat Tong BARAHONA on 02/02/2025 6:04 PM by Heron Kaushik, M.D. withacknowledgment of the results . Preliminary [...] 21(H) <19 ng/L 02/02/2025 4:52 PM EDT [facility] Troponin Delta 3 <10 ng/L 02/02/2025 4:52 PM EDT [facility] Troponin Delta Interpretation Not Significant 02/02/2025 4:52 PM EDT [facility] Comment:Not Significant. No acute change in troponin observed between the baseline and 2 hour samples. Blood Venous blood specimen / Unknown Venipuncture / Unknown 02/02/2025 4:18 PM EDT 02/02/2025 4:28 PM EDT Alessio CORONA LAB BLOOD ORDERABLES Final Re sult [facility] [address] [place] [id number] * N-Terminal Probnp (02/02/2025 4:18 PM EDT) N-Terminal, PROBNP, Plasma 252 0 - 899 pg/mL 02/02/2025 6:58 PM EDT [facility] Blood Venous blood specimen / Unknown Venipuncture / Unknown 02/02/2025 4:18 PM EDT 02/02/2025 4:28 PM EDT Nithya Yanira DO LAB BLOOD ORDERABLES Fin al Result Performing Organization Address [facility] Co de Phone Number [facility] [address] [place] [address] * EKG now - STAT (adult) (02/02/2025 2:10 PM EDT) Only the most recent of2 resultswithin the time period is included. EKG DIAGNOSIS CLASS Abnormal MUSE ECG Ventricular Rate 87 BPM MUSE ECG Atrial Rate 87 BPM MUSE ECG MN Interval 244 ms MUSE ECG QRSD Interval 112 ms MUSE ECG QT Interval 364 ms MUSE ECG QTC Interval 438 ms MUSE ECG P [place] 18 degrees MUSE ECG R [place] 27 degrees MUSE ECG T Wave [place] -6 degrees MUSE ECG Diagnosis Sinus rhythm with 1st degree AV block MUSE ECG Diagnosis Incomplete right bundle branch block MUSE ECG Diagnosis Abnormal ECG MUSE ECG Diagnosis MUSE ECG Diagnosis MUSE ECG Diagnosis Confirmed by Dakota Tracey ([id number]) on 02/02/2025 3:30:48 PM MUSE ECG 02/02/2025 2:10 PM EDT 02/02/2025 3:30 PM EDT us Alessio Barahona PA ECG ORDERABLES Final Result Performing Organization Address [facility] de Phone Number MUSE ECG * (ABNORMAL) Troponin now and 120 min (02/02/2025 2:10 PM EDT) Pathologist [facility] Troponin T, High Sensitivity, 0 Hour 24(H) <19 ng/L 02/02/2025 2:54 PM EDT [facility] Blood Venous blood specimen / Unknown Venipuncture / Unknown 02/02/2025 2:10 PM EDT 02/02/2025 2:34 PM EDT Alessio CORONA LAB BLOOD ORDERABLES Final Re sult Performing Organization Address [facility] Co de Phone Number [facility] [address] [place] [address] * (ABNORMAL) Bacterial ID Gram Positive (02/02/2025 2:10 PM EDT) Staphylococcus Result Detected( A) Not Detected 02/03/2025 7:22 AM EDT [facility] Comment:Assess if contaminan t or clinically relevant pathogen. Consider clinical stability and immune status of patient. Staphylococcus epidermidis Result Detected( A) Not Detected 02/03/2025 7:22 AM EDT [facility] Comment:Assess if contaminan t or clinically relevant pathogen. Consider clinical stability and immune status of patient. [facility] Result Detected( A) Not Detected 02/03/2025 7:22 AM EDT [facility] Blood Venous blood specimen / Unknown Venipuncture / Unknown 02/02/2025 2:10 PM EDT 02/02/2025 2:33 PM EDT Narrative [facility] - 02/03/2025 7:22 AM EDT [...] Value: Not detected for all analytes tested. us Alessio CORONA LAB MICROBIOLOGY - GENERAL OR DERABLES Final Result [facility] [address] [place] [address] * (ABNORMAL) Sed rate, automated (02/02/2025 2:10 PM EDT) [facility] Sedimentation Rate 106(H) <20 mm/hr 2024 3:25 PM EDT [facility] Blood Venous blood specimen / Unknown Venipuncture / Unknown 02/02/2025 2:10 PM EDT 02/02/2025 2:34 PM EDT Alessio Da Barahona IN LAB BLOOD ORDERABLES Final Re sult Performing Organization Address [facility] [facility] de Phone Number HEALTHCARE LAB [address] [place] [address] * (ABNORMAL) C-reactive protein (02/02/2025 2:10 PM EDT) Pathologist [facility] CRP, Plasma 288.0(H) <=8.0 mg/L 02/02/2025 2:54 PM EDT HEALTHCARE LAB Blood Venous blood specimen / Unknown Venipuncture / Unknown 02/02/2025 2:10 PM EDT 02/02/2025 2:34 PM EDT Narrative [facility] - 02/02/2025 2:54 PM EDT This CRP test is appropriate for assessment of infection, systemic inflammation and/or tissue injury. To assess cardiovascular disease risk order high sensitivity CRP (CRPH). Alessio Da Barahona IN LAB BLOOD ORDERABLES Final Re sult Performing Organization Address [facility] de Phone Number [facility] [address] [place] [address] * (ABNORMAL) CBC (01/29/2025 1:49 AM EDT) Only the most recent of2 resultswithin the time period is included. WBC Count 10.61(H) 3.70 - 10.30 10*3/uL LAB HEMATOLOGY METHOD 01/29/2025 3:20 AM EDT [facility] RBC Count 3.41(L) 4.60 - 6.10 10*6/uL LAB HEMATOLOGY METHOD 01/29/2025 3:20 AM EDT [facility] HGB 9.8(L) 13.7 - 17.5 g/dL LAB HEMATOLOGY METHOD 01/29/2025 3:20 AM EDT [facility] HCT 30.5(L) 40.0 - 51.0 % LAB HEMATOLOGY METHOD 01/29/2025 3:20 AM EDT [facility] Platelet Count 292 155 - 369 10*3/uL LAB HEMATOLOGY METHOD 01/29/2025 3:20 AM EDT [facility] MCV 89 79 - 98 fL LAB HEMATOLOGY METHOD 01/29/2025 3:20 AM EDT [facility] MCH 28.7 26.0 - 32.0 pg LAB HEMATOLOGY METHOD 01/29/2025 3:20 AM EDT [facility] MCHC 32.1 30.7 - 35.5 g/dL LAB HEMATOLOGY METHOD 01/29/2025 3:20 AM EDT [facility] RDW 12.9 11.5 - 14.5 % LAB HEMATOLOGY METHOD 01/29/2025 3:20 AM EDT [facility] MPV 8.8 8.8 - 12.5 fL LAB HEMATOLOGY METHOD 01/29/2025 3:20 AM EDT [facility] nRBC 0.0 <=0.0 per 100 WBCs LAB HEMATOLOGY METHOD 01/29/2025 3:20 AM EDT [facility] Blood Venous blood specimen / Unknown Venipuncture / Unknown 01/29/2025 1:49 AM EDT 01/29/2025 3:12 AM EDT us Miranda Salamanca TUTOR COORDINATOR LAB BLOOD ORDERABLES Final Re sult Performing Organization Address City/State/[facility] Co de Phone Number [facility] [address] [place] [address] * [place] AN ELECTIVE ENDOTRACHEAL AIRWAY, PB ANESTHESIA PLACEHOLDER (01/28/2025 11:54 AM EDT) Narrative Ja Alexandre CRNA - 01/28/2025 11:54 AM EDT Ja Alexandre CRNA 01/28/2025 12:04 PM Airway Date/Time: 01/28/2025 11:54 AM Reason: elective Airway not difficult General Information and Staff Patient location during procedure: 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 No change to dentition. Kwasi Mckeon MD ANESTHESIA ORDERABLES Final R esult * (ABNORMAL) Hemoglobin A1c (12/17/2024 2:49 PM EDT) Hemoglobin A1c 6.2(H) <5.7 % 12/17/2024 7:08 PM EDT [facility] Blood Venous blood specimen / Unknown Venipuncture / Unknown 12/17/2024 2:49 PM EDT 12/17/2024 2:49 PM EDT Narrative [facility] - 12/17/2024 7:08 PM EDT HA1C Interpretive Data: Diagnosis of Diabetes: Diabetic > or = 6.5% Pre-diabetic 5.7 to 6.4% Non-diabetic < or = 5.6% Glycemic Targets for Type I and Type II Diabetics: Non- Adults <7.0% Adults <6.0% Children and Adolescents <7.5% Source: [place] [employer]. Standards of medical care in diabetes,2017. Diabetes Care.2017:40 (suppl 1):S1-S135. HbA1c assay performed by an ion-exchange chromatography method that is certified traceable to the DCCT. Leon Anne MD LAB BLOOD ORDERABLES Final R esult [facility] [address] [place] [address] * Albumin, Plasma (12/17/2024 2:49 PM EDT) Albumin, Plasma 4.5 3.5 - 5.2 g/dL 12/17/2024 6:02 PM EDT 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
--- OUTSIDE RECORDS SUMMARY | 2025-03-19 14:11 | XMS_ITS | Encounter Summary ---
Author Organization [facility] Address [address] [place] [address] Care Team Providers Care Tree Trimmer Name Role Phone Nader Fields MD Primary Care Provider [phone] Encounter Details Date Type Department Care Team [...] any time in the past 12 m [facility], were you homeless or living in a longterm (including now)? No 02/03/2025 Utilities Answer Date Recorded In the past 12 months has th e [employer], gas, oil, or water [employer] threatened to shut off services in your [...] [facility] [address] [facility], [address]nd [place] [address] Vince Neumann MD [address] [facility] [address] [place] [address] 06/18/2025 12:40 PM EDT Office Visit Medical Office Building [facility] [address] [facility], [address] [place] [address] Leon Anne MD [address] [facility] [address] [place] [address] 07/31/2025 12:20 PM EST Office Visit [facility] [address] [facility] [address] [place] [address] Saroj Anderson MD [address] [place] [address] documented as of this encounter [...] documented as of this encounter Care Teams Tree Trimmer Relationship Specialty Start Date End Date Nader Fields MD [address] [facility] [address] [place] [address] PCP - General 06/16/24 documented as of this encounter
--- OUTSIDE RECORDS SUMMARY | 2025-03-19 14:11 | XMS_ITS | Encounter Summary ---
Author Organization [facility] Address [address] [place] [address] Care Team Providers Care Stucco Laborer Name Role Phone Nader Fields MD Primary Care Provider [phone] Reason for Visit * Reason Onset Date Comments HCN - Patient Message 03/13/2025 Encounter Details Date Type Department Care Team ([facility] st Contact Info) Description 03/13/2025 Telephone Medical Office Building [facility] [address] [facility], [address] [place] [address] Leon Anne MD [address] [facility] [address] [place] [address] HCN - Patient Message Social [...] time in the past 12 m [facility], were you homeless or living in a halfway (including now)? No 02/03/2025 Utilities Answer Date [...] 03/17/2025 11:07 AM EDT Called Marcel with [employer] . Left voicemail giving him an update [...] on Omid patient. Best contact number: Other: [phone] Optimal time of day to reach caller: [...] Upcoming Encounters Date Type Department Care Team ([facility] st Contact Info) Description 03/25/2025 8:30 AM EDT Office Visit Pav [facility] [address] [facility], [address]nd [place] [address] Vince Neumann MD [address] [facility] [address] [place] [address] 06/18/2025 12:40 PM EDT Office Visit Medical Office Building [facility] [address] [facility], [address] [place] [address] Leon Anne MD [address] [facility] [address] [place] [address] 07/31/2025 12:20 PM EST Office Visit [facility] [address] [place] [address] Saroj Anderson MD [address] [place] [address] documented as of this encounter [...] documented as of this encounter Care Teams Stucco Laborer Relationship Specialty Start Date End Date Nader Fields MD [address] [place] [id number] PCP - General 06/16/24 documented as of this encounter
--- NOTE | 2025-03-19 14:17 | SW/DCPLANNER ---
Addendum entered by Mayda Toribio 03/23/25 07:07: Per [facility] patient is approved SNF level of care. I have updated MD. Addendum entered by Mayda Toribio 03/20/25 09:20: Keanu Licona will start auth this AM. Original Note: I spoke w/ patient and his regarding plans once medically stable for discharge. PT/OT evaluated patient and recommended SNF level of care. Patient stated that he was recently in [place] and prefers to return to this facility. I will fax patient information faxed to Keanu Licona today. Discharge date is unknown at this time. I will continue to follow up.
--- NOTE | 2025-03-19 15:44 | P.PN_ITS ---
Subjective *Date: 03/19/25 *Time: 15:44 Interval history: Patient feeling somewhat better today. Showing improvement in his kidney function. Urine blood-tinged but no significant clots. On 2 L oxygen overnight. Afebrile. Tolerating p.o. intake. Medical Exam Vital signs and Labs for Last 24 Hours: Vital Signs Temp Pulse Pulse Resp BP BP Pulse Ox 03/19/25 12:00 97.9 F 78 16 146/80 H 93 L 03/19/25 08:00 2 L 03/19/25 08:00 97.0 F L 83 16 110/70 94 L 03/19/25 06:31 03/19/25 05:00 03/19/25 04:00 97.6 F 75 14 112/48 L 98 03/19/25 03:00 03/19/25 01:00 03/19/25 00:00 97.9 F 76 16 104/57 L 92 L 03/18/25 22:35 03/18/25 21:13 97.5 F L 78 20 91/43 L 95 03/18/25 21:00 03/18/25 20:57 98.4 F 78 22 91/43 L 03/18/25 20:04 95 03/18/25 19:00 74 19 93/42 L 99 03/18/25 18:31 122/66 89 L 03/18/25 18:16 120/67 89 L 03/18/25 17:46 76 16 109/64 L 88 L 03/18/25 17:31 74 18 125/72 03/18/25 17:16 80 18 131/68 03/18/25 17:01 78 20 115/60 03/18/25 16:45 78 106/64 L 98 03/18/25 16:32 81 21 106/67 L 96 03/18/25 16:15 83 20 85/61 L 96 03/18/25 16:00 90 22 81/53 L 92 L 03/18/25 15:57 88 28 H 79/54 L 94 L 03/18/25 15:53 97.9 F 95 H 17 101/48 L 93 L O2 Del Method O2 Flow Rate 03/19/25 12:00 Nasal Cannula 2 03/19/25 08:00 Nasal Cannula 03/19/25 08:00 Nasal Cannula 2 03/19/25 06:31 Nasal Cannula 2 03/19/25 05:00 Nasal Cannula 2 03/19/25 04:00 Nasal Cannula 2 03/19/25 03:00 Nasal Cannula 2 03/19/25 01:00 Nasal Cannula 2 03/19/25 00:00 Nasal Cannula 2 03/18/25 22:35 Nasal Cannula 2 03/18/25 21:13 Nasal Cannula 2 03/18/25 21:00 Nasal Cannula 2 03/18/25 20:57 Room Air 03/18/25 20:04 Nasal Cannula 2 03/18/25 19:00 Nasal Cannula 2 03/18/25 18:31 Room Air 03/18/25 18:16 Room Air 03/18/25 17:46 Room Air 03/18/25 17:31 03/18/25 17:16 03/18/25 17:01 03/18/25 16:45 03/18/25 16:32 03/18/25 16:15 03/18/25 16:00 03/18/25 15:57 03/18/25 15:53 Room Air Intake and Output 03/18/25 03/19/25 03/19/25 23:59 07:59 15:59 Intake Total 560 / 1040 480 / 1040 Output Total 825 / 825 850 / 850 Balance -825 / -385 -290 / 190 480 / 190 Intake: Intake, Oral Amount 360 / 840 480 / 840 Intake, Total IV Amount 200 / 200 0.9 % Sodium Chloride 1000ML 1, 200 / 200 000 ml @ 100 mls/hr IV .Q10H [facility] Rx#:[id number] Output: Output, Urine Amount 825 / 825 850 / 850 Other: Number of Unmeasured Voids 0 0 Weight 125.69 kg 125.69 kg Patient Weight 03/19/25 23:59 Weight 125.69 kg Laboratory Results - last 24 hr 03/18/25 15:48: WBC 9.0, RBC 4.37 L, Hgb 12.3 L, Hct 38.2 L, MCV 87.4, MCH 28.1, MCHC 32.2, RDW 14.3, Plt Count 449 H, MPV 9.1, Neut % (Auto) 66.8, Lymph % (Auto) 18.9, Dukes % (Auto) 11.1 H, Eos % (Auto) 2.4, Baso % (Auto) 0.2, Neut # (Auto) 6.0, Lymph # (Auto) 1.7, Dukes # (Auto) 1.0, Eos # (Auto) 0.2, Baso # (Auto) 0.0, PT 12.8 H, INR 1.17 H, APTT 33.0 H, Sodium 134 L, Potassium 4.3, Chloride 92 L, Carbon Dioxide 27, Anion Gap 19.3 H, BUN 45 H, Creatinine 3.30 H, Estimated Creat Clear 34, Estimated GFR 18 L*, Est GFR ( Amer) 22 L, Glucose 154 H, Calcium 10.2, Phosphorus 4.7 H, Magnesium 1.4 L, Total Bilirubin 0.6, AST 20, ALT 12, Alkaline Phosphatase 82, Troponin I < 0.01, NT-Pro-B Natriuret Pep 277 H, Total Protein 8.6 H, Albumin 4.1, Globulin 4.5 H, Albumin/Globulin Ratio 0.9 L, Lipase 86, TSH 1.49, Thyroxine (T4) 7.3, HCV Ab TRAVIS w/Rflx PCR Qn Negative, HIV Ag/Ab Combo Qual Negative 03/18/25 15:53: VBG pH 7.39, VBG pCO2 41.6, VBG pO2 43.7 H, VBG HCO3 24.7, VBG Total CO2 26.0, VBG O2 Saturation 77.9 H, VBG Base Excess -0.3, VBG Lactic Acid 3.0 H 03/18/25 16:06: SARS-CoV-2 (PCR) Not detected, Influenza A Untype (PCR) Not detected, Influenza Type B (PCR) Not detected 03/18/25 18:45: Urine Color Yellow, Urine Appearance Clear, Urine pH 5.5, Ur Specific Chandler 1.015, Urine Protein Negative, Urine Glucose (UA) Negative, Urine Ketones Negative, Urine Blood Trace-i, Urine Nitrate Negative, Urine Bilirubin Negative, Urine Urobilinogen 0.2, Ur Leukocyte Esterase Negative, Urine RBC 20-50, Urine WBC Occasional, Ur Squamous Epith Cells 5-10, Urine Bacteria 2+, Hyaline Casts 3-5, Urine Mucus 3+ 03/18/25 19:07: Lactate 2.1, Troponin I < 0.01 03/18/25 21:34: POC Glucose 99 03/18/25 23:38: Lactate 1.2, Troponin I < 0.01 03/19/25 05:14: POC Glucose 110 03/19/25 06:37: WBC 6.7 D, RBC 3.84 L, Hgb 10.9 L D, Hct 33.8 L, MCV 88.0, MCH 28.4, MCHC 32.2, RDW 14.6, Plt Count 360, MPV 9.0, Neut % (Auto) 60.0, Lymph % (Auto) 21.9, Dukes % (Auto) 12.2 H, Eos % (Auto) 5.2, Baso % (Auto) 0.4, Neut # (Auto) 4.0, Lymph # (Auto) 1.5, Dukes # (Auto) 0.8, Eos # (Auto) 0.4, Baso # (Auto) 0.0, Sodium 137, Potassium 4.3, Chloride 98, Carbon Dioxide 27, Anion Gap 16.3 H, BUN 42 H, Creatinine 2.30 H D, Estimated Creat Clear 50, Estimated GFR 28 L, Est GFR ( Amer) 34 L D, Glucose 109 H D, Lactate 0.9, Calcium 9.1, Magnesium 1.9 D 03/19/25 12:35: POC Glucose 120 H I & O for Labs for Last 24 Hours: Intake & Output 03/16/25 03/17/25 03/18/25 03/19/25 23:59 23:59 23:59 23:59 Intake Total 1040 / 1040 Output Total 825 / 825 850 / 850 Balance -825 / -385 190 / 190 Weight 125.69 kg 125.69 kg Constitutional: Present no acute distress, obese, chronically ill appearing and cooperative Head: Present atraumatic and normocephalic ENT: Present normal exam Respiratory: Present normal respiratory effort; Absent rhonchi, wheezes or crackles Cardiac: Present Reg Rate and Rhythm GI: Present soft and normal bowel sounds; Absent distention or tenderness Comment:: Kaur in place Extremities: Present normal inspection and full ROM; Absent edema Skin: Present intact; Absent erythema Neuro: Present Grossly Intact, alert, awake, oriented x 3 and moves all extremities Assessment and Plan *Assessment and plan (1) Acute kidney injury superimposed on CKD: Status: Acute Category: Medical Code(s): N17.9 - Acute kidney failure, unspecified; N18.9 - Chronic kidney disease, unspecified (2) Acute hypotension: Status: Acute Category: Medical Code(s): I95.9 - Hypotension, unspecified (3) Acute respiratory failure: Status: Acute Category: Medical Code(s): J96.00 - Acute respiratory failure, unspecified whether with hypoxia or hypercapnia Plan: Continue supplemental oxygen to maintain SpO2 greater than 92% and wean as tolerated (4) Acute urinary retention: Status: Acute Category: Medical Code(s): R33.8 - Other retention of urine Plan: Maintain Kaur catheter Increased Flomax to 0.8 mg daily Consider voiding trial before discharge (5) Dehydration: Status: Acute Category: Medical Code(s): E86.0 - Dehydration Plan: IV fluids Monitor BMP (6) Adult failure to thrive: Status: Acute Category: Medical Code(s): R62.7 - Adult failure to thrive Plan: 1800-calorie diabetic diet (7) Hypopharyngeal lesion: Status: Acute Category: Medical Code(s): J39.2 - Other diseases of pharynx Plan: ER provider consulted [facility] and they are arranging outpatient follow-up in the ENT clinic for possible scope Consider GI consultation for upper and lower endoscopy (8) Lymphadenopathy, retroperitoneal: Status: Acute Category: Medical Code(s): R59.0 - Localized enlarged lymph nodes Plan: ER provider consulted [facility] and they are arranging outpatient follow-up in [email or web address] Consider GI consultation for upper and lower endoscopy (9) Hypomagnesemia: Status: Acute Category: Medical Code(s): E83.42 - Hypomagnesemia Plan: Received 2 g of magnesium in the ER Repeat magnesium level in a.m. 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 Found to have JAYLEN and urinary obstruction. Responding well to Kaur catheter. Urine output increased significantly. Kidney function improving. Anticipate discharge in the next day or 2. Problems addressed as follows: Acute kidney injury: - Seeing improvement, creatinine 2.3 this morning. Monitor BMP every 12 hours. Repeat BMP ordered for the evening with CMP, CBC, magnesium ordered for the morning -Discontinue IV fluids, tolerating p.o. intake -Concern for obstructive component to his JAYLEN. Improving with Kaur catheter. Significant output with over 1.6 L of urine output since placement of catheter -Caution with nephrotoxins. Hold RACHEL inhibitor and diuretics New oxygen requirement, unclear the etiology. Mainly while patient is laying down. Room air saturation of 88% at rest. Currently on 2 L, wean as tolerated, goal sats greater 90% - No infiltrates appreciated on CTA of chest obtained in the ED. No indication for antibiotics at this time. Encourage ambulation and patient to get out of bed for improved lung expansion Diabetes: A1c 6.3 in November. Repeat ordered for the morning. Morning glucose of 109 fingersticks ACHS with sliding scale insulin as needed. Hypertension: Seeing some improvement. Will continue to hold at this time, consider resuming amlodipine or lisinopril in the morning pending kidney function and blood pressure Continue gabapentin 100 mg twice daily for neuropathy Continue famotidine 20 mg nightly for GERD Therapy working with patient. Recommend placement for rehab. Social work consulted to assist with Full code Eliquis 5 mg twice daily Diabetic diet
[2025-03-19 16:00] VITALS: BP 137/69; PULSE 74; RESP 16; TEMP 35.9; O2SAT 98
[2025-03-19 18:03] LABS: Anion Gap 13.4 mEq/L (5-15); Blood Urea Nitrogen 38 mg/dl (9-20); Calcium 9.5 mg/dl (8.4-10.2); Carbon Dioxide 30 mmol/L (22.0-30.0); Chloride 98 mmol/L (98-107); Creatinine Clearance Estimated 52 mL/min (50-200); Estimated Glomerular Filt Rate 29 ml/min (>60); GFR (African American) 36 ML/MIN (>60); Glucose 142 mg/dl (74-100); Potassium 4.4 mmoL/L (3.5-5.1); Sodium 137 mmol/L (136-145)
[2025-03-19 18:27] LABS: Hemoglobin A1C 7.5 % (4.0-6.0)
--- NOTE | 2025-03-19 19:45 | EXP.ACUTE.PN ---
Subjective *Date: 03/19/25 *Time: 19:45 Medical Exam Vital signs and Labs for Last 24 Hours: Vital Signs Temp Pulse Pulse Resp BP BP Pulse Ox 03/19/25 18:41 03/19/25 17:00 03/19/25 16:00 96.6 F L 74 16 137/69 98 03/19/25 15:00 03/19/25 13:00 03/19/25 12:00 97.9 F 78 16 146/80 H 93 L 03/19/25 08:00 2 L 03/19/25 08:00 97.0 F L 83 16 110/70 94 L 03/19/25 06:31 03/19/25 05:00 03/19/25 04:00 97.6 F 75 14 112/48 L 98 03/19/25 03:00 03/19/25 01:00 03/19/25 00:00 97.9 F 76 16 104/57 L 92 L 03/18/25 22:35 03/18/25 21:13 97.5 F L 78 20 91/43 L 95 03/18/25 21:00 03/18/25 20:57 98.4 F 78 22 91/43 L 03/18/25 20:04 95 O2 Del Method O2 Flow Rate 03/19/25 18:41 Nasal Cannula 03/19/25 17:00 Nasal Cannula 03/19/25 16:00 Nasal Cannula 2 03/19/25 15:00 Nasal Cannula 2 03/19/25 13:00 Nasal Cannula 2 03/19/25 12:00 Nasal Cannula 2 03/19/25 08:00 Nasal Cannula 03/19/25 08:00 Nasal Cannula 2 03/19/25 06:31 Nasal Cannula 2 03/19/25 05:00 Nasal Cannula 2 03/19/25 04:00 Nasal Cannula 2 03/19/25 03:00 Nasal Cannula 2 03/19/25 01:00 Nasal Cannula 2 03/19/25 00:00 Nasal Cannula 2 03/18/25 22:35 Nasal Cannula 2 03/18/25 21:13 Nasal Cannula 2 03/18/25 21:00 Nasal Cannula 2 03/18/25 20:57 Room Air 03/18/25 20:04 Nasal Cannula 2 Intake and Output 06/26/25 06/26/25 06/26/25 07:59 15:59 23:59 Intake Total 560 / 1280 480 / 1280 240 / 1280 Output Total 850 / 1600 750 / 1600 Balance -290 / -320 -270 / -320 240 / -320 Intake: Intake, Oral Amount 360 / 1080 480 / 1080 240 / 1080 Intake, Total IV Amount 200 / 200 0.9 % Sodium Chloride 1000ML 1, 200 / 200 000 ml @ 100 mls/hr IV .Q10H [facility] Rx#:[id number] Output: Output, Urine Amount 850 / 1600 750 / 1600 Other: Number of Unmeasured Voids 0 Weight 125.69 kg Patient Weight 03/19/25 23:59 Weight 125.69 kg Laboratory Results - last 24 hr 03/18/25 19:07: Lactate 2.1, Troponin I < 0.01 03/18/25 21:34: POC Glucose 99 03/18/25 23:38: Lactate 1.2, Troponin I < 0.01 03/19/25 05:14: POC Glucose 110 03/19/25 06:37: WBC 6.7 D, RBC 3.84 L, Hgb 10.9 L D, Hct 33.8 L, MCV 88.0, MCH 28.4, MCHC 32.2, RDW 14.6, Plt Count 360, MPV 9.0, Neut % (Auto) 60.0, Lymph % (Auto) 21.9, [place] % (Auto) 12.2 H, Eos % (Auto) 5.2, Baso % (Auto) 0.4, Neut # (Auto) 4.0, Lymph # (Auto) 1.5, [place] # (Auto) 0.8, Eos # (Auto) 0.4, Baso # (Auto) 0.0, Sodium 137, Potassium 4.3, Chloride 98, Carbon Dioxide 27, Anion Gap 16.3 H, BUN 42 H, Creatinine 2.30 H D, Estimated Creat Clear 50, Estimated GFR 28 L, Est GFR ( Amer) 34 L D, Glucose 109 H D, Hemoglobin A1c 7.5 H, Lactate 0.9, Calcium 9.1, Magnesium 1.9 D 03/19/25 12:35: POC Glucose 120 H 03/19/25 16:57: Sodium 137, Potassium 4.4, Chloride 98, Carbon Dioxide 30, Anion Gap 13.4, BUN 38 H, Creatinine 2.20 H, Estimated Creat Clear 52, Estimated GFR 29 L, Est GFR ( Amer) 36 L, Glucose 142 H D, Calcium 9.5 I & O for Labs for Last 24 Hours: Intake & Output 03/16/25 03/17/25 03/18/25 03/19/25 23:59 23:59 23:59 23:59 Intake Total 1280 / 1280 Output Total 825 / 825 1600 / 1600 Balance -825 / -385 -320 / -320 Weight 125.69 kg 125.69 kg Microbiology Reports for the Last 24 Hours: Microbiology 03/18/25 16:32 Blood Blood Culture - Preliminary NO GROWTH AFTER 24 HOURS 03/18/25 15:45 Blood Blood Culture - Preliminary NO GROWTH AFTER 24 HOURS
--- NOTE | 2025-03-19 19:46 | EXP.ACUTE.PN ---
Subjective *Date: 03/19/25 *Time: 21:37 Interval history: Feeling somewhat better than the morning. Concerned about the blood in his urine. Denies nausea, vomiting, chest pain. Medical Exam Vital signs and Labs for Last 24 Hours: Vital Signs Temp Pulse Pulse Resp BP BP Pulse Ox 03/19/25 18:41 03/19/25 17:00 03/19/25 16:00 96.6 F L 74 16 137/69 98 03/19/25 15:00 03/19/25 13:00 03/19/25 12:00 97.9 F 78 16 146/80 H 93 L 03/19/25 08:00 2 L 03/19/25 08:00 97.0 F L 83 16 110/70 94 L 03/19/25 06:31 03/19/25 05:00 03/19/25 04:00 97.6 F 75 14 112/48 L 98 03/19/25 03:00 03/19/25 01:00 03/19/25 00:00 97.9 F 76 16 104/57 L 92 L 03/18/25 22:35 03/18/25 21:13 97.5 F L 78 20 91/43 L 95 03/18/25 21:00 03/18/25 20:57 98.4 F 78 22 91/43 L 03/18/25 20:04 95 O2 Del Method O2 Flow Rate 03/19/25 18:41 Nasal Cannula 03/19/25 17:00 Nasal Cannula 03/19/25 16:00 Nasal Cannula 2 03/19/25 15:00 Nasal Cannula 2 03/19/25 13:00 Nasal Cannula 2 03/19/25 12:00 Nasal Cannula 2 03/19/25 08:00 Nasal Cannula 03/19/25 08:00 Nasal Cannula 2 03/19/25 06:31 Nasal Cannula 2 03/19/25 05:00 Nasal Cannula 2 03/19/25 04:00 Nasal Cannula 2 03/19/25 03:00 Nasal Cannula 2 03/19/25 01:00 Nasal Cannula 2 03/19/25 00:00 Nasal Cannula 2 03/18/25 22:35 Nasal Cannula 2 03/18/25 21:13 Nasal Cannula 2 03/18/25 21:00 Nasal Cannula 2 03/18/25 20:57 Room Air 03/18/25 20:04 Nasal Cannula 2 Intake and Output 03/19/25 03/19/25 03/19/25 07:59 15:59 23:59 Intake Total 560 / 1280 480 / 1280 240 / 1280 Output Total 850 / 1600 750 / 1600 Balance -290 / -320 -270 / -320 240 / -320 Intake: Intake, Oral Amount 360 / 1080 480 / 1080 240 / 1080 Intake, Total IV Amount 200 / 200 0.9 % Sodium Chloride 1000ML 1, 200 / 200 000 ml @ 100 mls/hr IV .Q10H [facility] Rx#:[id number] Output: Output, Urine Amount 850 / 1600 750 / 1600 Other: Number of Unmeasured Voids 0 Weight 125.69 kg Patient Weight 03/19/25 23:59 Weight 125.69 kg Laboratory Results - last 24 hr 03/18/25 19:07: Lactate 2.1 03/18/25 21:34: POC Glucose 99 03/18/25 23:38: Lactate 1.2, Troponin I < 0.01 03/19/25 05:14: POC Glucose 110 03/19/25 06:37: WBC 6.7 D, RBC 3.84 L, Hgb 10.9 L D, Hct 33.8 L, MCV 88.0, MCH 28.4, MCHC 32.2, RDW 14.6, Plt Count 360, MPV 9.0, Neut % (Auto) 60.0, Lymph % (Auto) 21.9, Ross % (Auto) 12.2 H, Eos % (Auto) 5.2, Baso % (Auto) 0.4, Neut # (Auto) 4.0, Lymph # (Auto) 1.5, Ross # (Auto) 0.8, Eos # (Auto) 0.4, Baso # (Auto) 0.0, Sodium 137, Potassium 4.3, Chloride 98, Carbon Dioxide 27, Anion Gap 16.3 H, BUN 42 H, Creatinine 2.30 H D, Estimated Creat Clear 50, Estimated GFR 28 L, Est GFR ( Amer) 34 L D, Glucose 109 H D, Hemoglobin A1c 7.5 H, Lactate 0.9, Calcium 9.1, Magnesium 1.9 D 03/19/25 12:35: POC Glucose 120 H 03/19/25 16:57: Sodium 137, Potassium 4.4, Chloride 98, Carbon Dioxide 30, Anion Gap 13.4, BUN 38 H, Creatinine 2.20 H, Estimated Creat Clear 52, Estimated GFR 29 L, Est GFR ( Amer) 36 L, Glucose 142 H D, Calcium 9.5 I & O for Labs for Last 24 Hours: Intake & Output 03/16/25 03/17/25 03/18/25 03/19/25 23:59 23:59 23:59 23:59 Intake Total 1280 / 1280 Output Total 825 / 825 1600 / 1600 Balance -825 / -385 -320 / -320 Weight 125.69 kg 125.69 kg Microbiology Reports for the Last 24 Hours: Microbiology 03/18/25 16:32 Blood Blood Culture - Preliminary NO GROWTH AFTER 24 HOURS 03/18/25 15:45 Blood Blood Culture - Preliminary NO GROWTH AFTER 24 HOURS
[2025-03-19 20:00] VITALS: BP 123/73; PULSE 75; RESP 16; TEMP 36.4; O2SAT 91
[2025-03-19] MEDS: FAMOTIDINE 20MG TABLET 20 MG PO (21:00)
[2025-03-19] MEDS: PRAVASTATIN 20MG TAB 20 MG PO (21:00)
[2025-03-19] MEDS: TAMSULOSIN 0.4MG CAPSULE 0.8 MG PO (21:00)
[2025-03-19 21:10] LABS: POC Glucose,Bedside 138 (70-110)
[2025-03-20] VITALS: BP 126/63; PULSE 69; RESP 18; TEMP 36.5; O2SAT 92
[2025-03-20 03:51] VITALS: BP 128/60; PULSE 76; RESP 17; TEMP 36.4; O2SAT 89; BMI 37.8
[2025-03-20 06:01] LABS: POC Glucose,Bedside 116 (70-110)
--- NOTE | 2025-03-20 06:49 | EXP.EVENT.NO ---
Called at 0624 by patient's nurse that he is refusing to wear his oxygen and currently satting in the upper 80s. Went to see patient to discuss. Patient states he does not want to wear the oxygen. Patient is alert and oriented x 4 at this time. I explained to him that he is a full code and if he goes into respiratory or cardiac arrest we would perform chest compressions and intubate him and put him on a ventilator. I asked the patient if he wanted that and he responded no. Patient's nurse also tried to convince him to wear the oxygen at that time and explained to him again with him being a full code that we would perform life-saving measures. He stated again that he did not want chest compressions or to be put on a ventilator. I asked him if he wanted to be a DNR and he said yes. I asked if I can call his and let her know. Spoke to patient's and informed her of patient's wishes and she said she would not go against that. She said if that is what he wanted that she was okay with that and she would be at the hospital shortly. Myself, patient's nurse, and domestic housekeeper talked to patient and explained that he is a full code and what would happen if he should go into cardiac or respiratory arrest. Patient again stated that he wants to be a DNR but would not sign paperwork. Myself, patient's nurse, and domestic housekeeper signed paperwork at 0640. CODE STATUS changed to DNR/DNI.
--- NOTE | 2025-03-20 06:56 | PC.NURSE ---
Pt is alert and oriented x4, and currently sating 82% on RA. Pt is refusing all care, and states that he wants to be a DNR, nurse x 3 educated pt on risks of not wearing his O2 pt states that he does not care. Pt gave this nurse, warehouse assembly worker and hospitalist on staff verbal permission to sign a DNR.
--- NOTE | 2025-03-20 07:27 | EXP.DC.SUM ---
General Admission date:: 03/18/25 Discharge date: 03/23/25 HPI HPI HPI: Mr. Montoya is a 74-year-old male presents to ER for evaluation of low blood pressure. Patient has a past medical history of type 2 diabetes mellitus, hypertension, hyperlipidemia, chronic kidney disease, morbid obesity, pulmonary embolism, deep vein thrombosis, iron and B12 deficiency anemia, and recent right knee replacement. Primary historian is patient's due to patient's complaint of hoarseness. She reports that patient had his right knee replaced on January 28, 2025. She states that patient was discharged after surgery and then admitted to the hospital for 2 weeks and then sent to rehab for 2 weeks. She states patient has been home for 2 weeks following rehab. She reports last week patient complained of nasal congestion, runny nose, and cough. She states she thought this was allergies. Over the last couple days patient has been sleeping and not, decreased appetite, and having daily nausea and vomiting. She states patient has tried to eat breakfast bar but has had vomiting with that as well. She states patient usually gets up every hour to urinate but last night he did not get up at all through the night. In the ER patient was catheterized with a 700 mL output. Patient denies any previous history of urinary retention. He states that he had no urge to urinate. Patient reports some dizziness due to low blood pressure today. Patient denies fever/chills, chest pain, dyspnea, abdominal pain, lightheadedness, or syncope. Patient is on supplemental oxygen, he denies home O2 use. reports patient recently diagnosed with PE and DVT and is on Eliquis. Hospital Course Hospital Course Hospital Course: Pleasant 74-year-old male with recent knee surgery in January presented with low blood pressure. Found to have JAYLEN and urinary obstruction. Conditions have resolved. Has done well with catheter removal, Kaur out for over 48 hours with independent voiding. Kidney function back to baseline, has been approved for rehab. Stable to discharge. Problems addressed as follows: Acute kidney injury: Urinary obstruction, resolved - Presented with elevated creatinine of 3.3. BUN 45. Showed gradual improvement to baseline creatinine of 1.3 and BUN 22. Electrolytes normalized. Had a brief episode of urinary obstruction. Kaur catheter was placed and adjustments were made to his prostate medications. Catheter was removed and patient successfully has voided independently since. Continuing tamsulosin and finasteride. Overall doing well. Stable to discharge to rehab for further management. Had overnight oxygen requirement during admission. Has shown improvement with diuresis. Stable on room air for 24 hours. There is still some concern for overnight desats being at risk for this patient. If so, would consider overnight oxygen to maintain sats above 90%. Suspect a component of sleep apnea. Diabetes: A1c 7.5. Morning glucose is controlled less than 150. Responding to insulin regimen. Has not required insulin in over 24 hours. Recommend resuming home regimen of metformin, pioglitazone, semaglutide. Hypertension: Stable, blood pressure initially soft. Has shown gradual improvement. Blood pressure 142/58 on the morning of discharge on only diuretics. Holding his amlodipine. Will resume lisinopril/HCTZ once daily at discharge. Monitor for other blood pressure needs Continue gabapentin 100 mg twice daily for neuropathy Continue famotidine 20 mg nightly for GERD Therapy working with patient daily. Recommended rehab due to his recent knee replacement and continued difficulty with ambulation. Accepted to [facility] for further management. Stable to discharge. Retroperitoneal lymphadenopathy Hypopharyngeal thickening - ER provider consulted [facility] and they have arranged outpatient follow-up in ENT clinic with possible scope. Also referred to [facility] [place] for further evaluation. Has appointment this coming week. Exam Data for Last 24 hours Vital signs and Labs for Last 24 Hours: Temp Pulse Resp BP Pulse Ox O2 Del Method O2 Flow Rate 97.6 F 76 17 128/60 89 L Room Air 2 03/20/25 03:51 03/20/25 03:51 03/20/25 03:51 03/20/25 03:51 03/20/25 03:51 03/20/25 06:50 03/20/25 03:00 Laboratory Results - last 24 hr 03/19/25 06:37: Hgb 10.9 L D, Hemoglobin A1c 7.5 H, Magnesium 1.9 D 03/19/25 12:35: POC Glucose 120 H 03/19/25 16:57: Sodium 137, Potassium 4.4, Chloride 98, Carbon Dioxide 30, Anion Gap 13.4, BUN 38 H, Creatinine 2.20 H, Estimated Creat Clear 52, Estimated GFR 29 L, Est GFR ( Amer) 36 L, Glucose 142 H D, Calcium 9.5 03/19/25 20:58: POC Glucose 138 H 03/20/25 05:25: POC Glucose 116 H I & O for Last 24 hours: Intake & Output 03/17/25 03/18/25 03/19/25 03/20/25 23:59 23:59 23:59 23:59 Intake Total 1280 / 1640 360 / 360 Output Total 825 / 825 2875 / 2875 950 / 950 Balance -825 / -385 -1595 / -1235 -590 / -590 Weight 125.69 kg 125.69 kg 126.779 kg Microbiology Reports for the Last 24 Hours: Microbiology 03/18/25 16:32 Blood Blood Culture - Preliminary NO GROWTH AFTER 24 HOURS 03/18/25 15:45 Blood Blood Culture - Preliminary NO GROWTH AFTER 24 HOURS Constitutional Constitutional: no acute distress, obese, chronically ill appearing and cooperative *Routine HEENT Exam Head: Present normocephalic Eye: Present EOMI and PERRL ENT: Present mucous membranes moist *Routine Neck Exam Neck: Present supple; Absent lymphadenopathy *Routine Respiratory Exam Respiratory: Present CTA bilaterally; Absent rhonchi, wheezes or crackles *Routine Cardiovascular Exam Cardiovascular: Present RRR *Routine Abdominal Exam Abdominal: Present soft and normoactive bowel sounds; Absent tenderness *Routine Rectal Exam Patient deferred: visual exam *Routine Exam Patient deferred: penile exam *Routine Extremities Exam Extremities: Present edema (trace); Absent cyanosis or clubbing Comments: Well-healed scar on right knee consistent with replacement *Routine Skin Exam Skin: Present intact and warm; Absent rash *Routine Neurological Exam Neurological: Present alert, oriented X3 and moving all extremities; Absent altered mental status Comments: weak, Results Data Completed and Pending Labs on day of discharge: Labs from last 24 hours 03/20/25 03/19/25 03/19/25 05:25 20:58 16:57 Hgb Sodium 137 Potassium 4.4 Chloride 98 Carbon Dioxide 30 Anion Gap 13.4 BUN 38 H Creatinine 2.20 H Estimated Creat Clear 52 Estimated GFR 29 L Est GFR ( Amer) 36 L Glucose 142 H D POC Glucose 116 H 138 H Hemoglobin A1c Calcium 9.5 Magnesium 03/19/25 03/19/25 12:35 06:37 Hgb 10.9 L D Sodium Potassium Chloride Carbon Dioxide Anion Gap BUN Creatinine Estimated Creat Clear Estimated GFR Est GFR ( Amer) Glucose POC Glucose 120 H Hemoglobin A1c 7.5 H Calcium Magnesium 1.9 D Preliminary micro results at discharge 03/18/25 16:32 Blood Culture - Preliminary Blood NO GROWTH AFTER 24 HOURS 03/18/25 15:45 Blood Culture - Preliminary Blood NO GROWTH AFTER 24 HOURS DS: Diagnosis Discharge Diagnosis (1) Acute kidney injury superimposed on CKD: Status: Acute Code(s): N17.9 - Acute kidney failure, unspecified; N18.9 - Chronic kidney disease, unspecified (2) Acute hypotension: Status: Acute Code(s): I95.9 - Hypotension, unspecified (3) Acute respiratory failure: Status: Acute Code(s): J96.00 - Acute respiratory failure, unspecified whether with hypoxia or hypercapnia (4) Acute urinary retention: Status: Acute Code(s): R33.8 - Other retention of urine (5) Dehydration: Status: Acute Code(s): E86.0 - Dehydration (6) Adult failure to thrive: Status: Acute Code(s): R62.7 - Adult failure to thrive (7) Hypopharyngeal lesion: Status: Acute Code(s): J39.2 - Other diseases of pharynx (8) Lymphadenopathy, retroperitoneal: Status: Acute Code(s): R59.0 - Localized enlarged lymph nodes (9) Hypomagnesemia: Status: Acute Code(s): E83.42 - Hypomagnesemia (10) Type 2 diabetes mellitus with peripheral neuropathy: Status: Chronic Code(s): E11.42 - Type 2 diabetes mellitus with diabetic polyneuropathy Meds Home Medications and Allergies Home Medications ?Medication ?Instructions ?Recorded ?Confirmed ?Type triamcinolone acetonide 0.1 % 1 applic topical DIRECTED 05/15/24 03/18/25 History topical cream mecobalamin (vitamin B12) 1,000 1,000 mcg PO DAILY #90 tabs 11/28/24 03/18/25 Rx mcg chewable tablet semaglutide 2 mg/dose (8 mg/3 mL) 2 mg (0.75 mL) SQ WEEKLY #3 mL 03/10/25 03/18/25 Rx subcutaneous pen injector apixaban 5 mg tablet (Eliquis) 5 mg PO BID #60 tabs 03/13/25 03/18/25 Rx acetaminophen 500 mg tablet 500 mg PO Q6H PRN Pain (Scale 03/18/25 03/18/25 History Score 1-3) amlodipine 5 mg tablet 5 mg PO BID 03/18/25 03/18/25 History Held on 03/23/25. Instructions: Pending reevaluation of blood pressure aspirin 81 mg tablet 81 mg PO DAILY 03/18/25 03/18/25 History famotidine 20 mg tablet 20 mg PO HS 03/18/25 03/18/25 History metformin 1,000 mg tablet 1,000 mg PO BID 03/18/25 03/18/25 History pioglitazone 15 mg tablet 15 mg PO DAILY 03/18/25 03/18/25 History pravastatin 20 mg tablet 20 mg PO HS 03/18/25 03/18/25 History finasteride 5 mg tablet 5 mg PO DAILY 30 days #30 tabs 03/23/25 Rx furosemide 40 mg tablet 40 mg PO DAILY Edema 30 days #0 03/23/25 03/18/25 Rx tabs gabapentin 100 mg capsule 100 mg PO TID 30 days #90 caps 03/23/25 Rx lisinopril 20 1 tab PO DAILY 30 days #30 tabs 03/23/25 Rx mg-hydrochlorothiazide 25 mg tablet tamsulosin 0.4 mg capsule 0.8 mg (2 x 0.4 mg) PO HS 30 days 03/23/25 Rx #60 caps New Prescriptions to Start Prescriptions: finasteride Jabari,Tomas gabapentin Tomas Barboza lisinopril-hydrochlorothiazide Jabari,Tomas tamsulosin Tomas Barboza Allergies Allergy/AdvReac Type Severity Reaction Status Date / Time Tetanus Vaccines and Toxoid AdvReac Mild Verified 03/18/25 14:51 Discharge Plan Disposition Patient Disposition: er [facility] Condition: Fair Discharge Order Discharge Orders: Discharge Order (Routine); Ordered 03/23/25 Ordered By: Tomas Barboza Follow up Plan Follow up with: Jules Ferguson MD [Staff Physician, Urology] - Enter time for follow up Referral Note: urinary retention Prescriptions/Medication Reconciliation: New tamsulosin 0.4 mg Capsule 0.8 mg PO HS 30 Days Qty: 60 0RF finasteride 5 mg Tablet 5 mg PO DAILY 30 Days Qty: 30 0RF Continued triamcinolone acetonide 0.1 % cream 1 applic topical DIRECTED mecobalamin (vitamin B12) 1,000 mcg tablet,chewable 1,000 mcg PO DAILY Qty: 90 3RF semaglutide 2 mg/dose (8 mg/3 mL) pen injector 2 mg SQ WEEKLY Qty: 3 2RF Eliquis 5 mg tablet 5 mg PO BID Qty: 60 2RF acetaminophen 500 mg Tablet 500 mg PO Q6H PRN (Reason: Pain (Scale Score 1-3)) aspirin 81 mg Tablet 81 mg PO DAILY pioglitazone 15 mg tablet 15 mg PO DAILY famotidine 20 mg tablet 20 mg PO HS metformin 1,000 mg tablet 1,000 mg PO BID Rx Instructions: TAKE 1 TABLET BY MOUTH TWICE DAILY WITH MEALS pravastatin 20 mg tablet 20 mg PO HS Rx Instructions: TAKE 1 TABLET BY MOUTH AT BEDTIME FOR CHOLESTEROL gabapentin 100 mg capsule 100 mg PO TID 30 Days Qty: 90 0RF Changed furosemide 40 mg tablet 40 mg PO DAILY 30 Days Qty: 0 0RF lisinopril-hydrochlorothiazide 20-25 mg tablet 1 tab PO DAILY 30 Days Qty: 30 1RF Held amlodipine 5 mg tablet 5 mg PO BID Hold Instructions: Pending reevaluation of blood pressure Discontinued tamsulosin 0.4 mg capsule 0.4 mg PO DAILY Problem Reconciliation Problems Reviewed?: Yes Patient Discharge Instructions ACTIVITY: Continue current activity DIET: continue same diet Patient Instructions: DI for Dehydration -- Adult, Acute Kidney Injury, DI for Urinary Retention in Men, Catheter-Associated Urinary Tract Infection Print Language: Italian Providers Primary Care Provider: Nader Fields Admit Provider: Tomas Barboza Attending Provider: Tomas Barboza
[2025-03-20 08:00] VITALS: BP 138/55; PULSE 87; RESP 18; TEMP 36.3; O2SAT 84
[2025-03-20 08:56] LABS: Basophils % 0.2 % (0.1-2.0); Eosinophils # 0.3 Kmm3 (0.0-0.4); Eosinophils % 4.7 % (0.1-12.0); Hematocrit 35.6 % (42.0-52.0); Hemoglobin 11.1 g/dL (14.1-18.0); Immature Granulocytes # 0.02 10^3uL; Immature Granulocytes % 0.3 %; Lymphocytes # 1.2 K/mm3 (0.7-4.5); Lymphocytes % 19.1 % (10-50); Mean Corpuscular HGB Conc 31.2 g/dL (31.8-35.4); Mean Corpuscular Volume 89.7 fl (80-94); Monocytes # 0.6 K/mm3 (0.1-1.0); Monocytes % 8.7 % (1.7-9.3); Neutrophils # 4.3 K/mm3 (1.8-7.8); Nucleated Red Blood Cells # 0 10^3/uL; Nucleated Red Blood Cells % 0 %; Platelet Count 344 K/mm3 (142-424); Red Blood Count 3.97 M/mm3 (4.60-6.20); Red Cell Distribution Width 14.4 % (11.5-17.5); Red Cell Distribution Width-SD 47.2 fL; White Blood Count 6.5 K/mm3 (4.8-10.8)
--- NOTE | 2025-03-20 08:56 | PC.NURSE ---
saravia catheter removed at 0800, patient provided with urinal, will continue to monitor output.
[2025-03-20 09:07] LABS: Chloride 101 mmol/L (98-107); Potassium 4.3 mmoL/L (3.5-5.1); Sodium 139 mmol/L (136-145)
[2025-03-20 09:10] LABS: Alanine Aminotransferase 8 U/L (12-78); Albumin/Globulin Ratio 1.1 (1.1-1.8); Alkaline Phosphatase 82 U/L (38-126); Anion Gap 14.3 mEq/L (5-15); Aspartate Amino Transferase 17 U/L (17-59); Bilirubin,Total 0.3 mg/dl (0.2-1.3); Blood Urea Nitrogen 31 mg/dl (9-20); Calcium 9.3 mg/dl (8.4-10.2); Carbon Dioxide 28 mmol/L (22.0-30.0); Creatinine Clearance Estimated 73 mL/min (50-200); Estimated Glomerular Filt Rate 42 ml/min (>60); GFR (African American) 51 ML/MIN (>60); Globulin 3.7 g/dL (1.3-3.2); Glucose 153 mg/dl (74-100); Magnesium 1.8 mg/dl (1.6-2.3); Total Protein,Serum 7.7 g/dl (6.3-8.2)
[2025-03-20] MEDS: FINASTERIDE 5MG TABLET 5 MG PO (09:13)
[2025-03-20] MEDS: ASPIRIN 81MG CHEWABLE TABLET 81 MG PO (09:13)
[2025-03-20] MEDS: APIXABAN 5MG TABLET 5 MG PO ×2 (09:13→20:14)
[2025-03-20] MEDS: GABAPENTIN 100MG CAPSULE 100 MG PO ×2 (09:18→20:14)
[2025-03-20 12:00] VITALS: BP 103/58; PULSE 106; RESP 18; TEMP 36.9; O2SAT 94
--- NOTE | 2025-03-20 14:37 | EXP.ACUTE.PN ---
Subjective *Date: 03/20/25 *Time: 21:15 Interval history: Patient will comply with wearing oxygen this morning. Catheter removed on rounds. Denies chest pain or shortness of breath. Awaiting independent voiding. Discussed the many catheter put back in place. Denies chest pain or shortness of breath. Kidney function improved. Awaiting insurance approval for placement for rehab. at bedside today. Medical Exam Vital signs and Labs for Last 24 Hours: Vital Signs Temp Pulse Resp BP Pulse Ox O2 Del Method O2 Flow Rate 03/20/25 14:17 Nasal Cannula 2 03/20/25 13:00 Nasal Cannula 2 03/20/25 12:00 98.5 F 106 H 18 103/58 L 94 L Nasal Cannula 2 03/20/25 11:00 Nasal Cannula 2 03/20/25 09:00 Nasal Cannula 03/20/25 08:00 Nasal Cannula 2 03/20/25 08:00 97.3 F L 87 18 138/55 L 84 L Room Air 03/20/25 06:50 Room Air 03/20/25 05:00 Room Air 03/20/25 03:51 97.6 F 76 17 128/60 89 L Room Air 03/20/25 03:00 Nasal Cannula 2 03/20/25 01:00 Nasal Cannula 2 03/20/25 00:00 97.7 F 69 18 126/63 92 L Nasal Cannula 2 03/19/25 23:00 Nasal Cannula 2 03/19/25 21:00 Nasal Cannula 2 03/19/25 20:00 Nasal Cannula 2 03/19/25 20:00 97.5 F L 75 16 123/73 91 L Nasal Cannula 2 03/19/25 18:41 Nasal Cannula 03/19/25 17:00 Nasal Cannula 03/19/25 16:00 96.6 F L 74 16 137/69 98 Nasal Cannula 2 03/19/25 15:00 Nasal Cannula 2 Intake and Output 03/19/25 03/20/25 03/20/25 23:59 07:59 15:59 Intake Total 240 / 1640 360 / 1060 700 / 1060 Output Total 1275 / 2875 950 / 1700 750 / 1700 Balance -1035 / -1235 -590 / -640 -50 / -640 Intake: Intake, Oral Amount 240 / 1440 360 / 1060 700 / 1060 Output: Output, Urine Amount 1275 / 2875 950 / 1700 750 / 1700 Other: Number of Unmeasured Voids 0 0 Weight 126.779 kg Patient Weight 03/20/25 23:59 Weight 126.779 kg Laboratory Results - last 24 hr 03/19/25 06:37: Hemoglobin A1c 7.5 H 03/19/25 16:57: Sodium 137, Potassium 4.4, Chloride 98, Carbon Dioxide 30, Anion Gap 13.4, BUN 38 H, Creatinine 2.20 H, Estimated Creat Clear 52, Estimated GFR 29 L, Est GFR ( Amer) 36 L, Glucose 142 H D, Calcium 9.5 03/19/25 20:58: POC Glucose 138 H 03/20/25 05:25: POC Glucose 116 H 03/20/25 08:35: WBC 6.5, RBC 3.97 L, Hgb 11.1 L, Hct 35.6 L, MCV 89.7, MCH 28.0, MCHC 31.2 L, RDW 14.4, Plt Count 344, MPV 9.0, Neut % (Auto) 67.0, Lymph % (Auto) 19.1, [place] % (Auto) 8.7, Eos % (Auto) 4.7, Baso % (Auto) 0.2, Neut # (Auto) 4.3, Lymph # (Auto) 1.2, [place] # (Auto) 0.6, Eos # (Auto) 0.3, Baso # (Auto) 0.0, Sodium 139, Potassium 4.3, Chloride 101, Carbon Dioxide 28, Anion Gap 14.3, BUN 31 H, Creatinine 1.60 H D, Estimated Creat Clear 73, Estimated GFR 42 L, Est GFR ( Amer) 51 L D, Glucose 153 H, Calcium 9.3, Magnesium 1.8, Total Bilirubin 0.3, AST 17, ALT 8 L D, Alkaline Phosphatase 82, Total Protein 7.7, Albumin 4.0, Globulin 3.7 H, Albumin/Globulin Ratio 1.1 I & O for Labs for Last 24 Hours: Intake & Output 03/17/25 03/18/25 03/19/25 03/20/25 23:59 23:59 23:59 23:59 Intake Total 1280 / 1640 1060 / 1060 Output Total 825 / 825 2875 / 2875 1700 / 1700 Balance -825 / -385 -1595 / -1235 -640 / -640 Weight 125.69 kg 125.69 kg 126.779 kg Microbiology Reports for the Last 24 Hours: Microbiology 03/18/25 18:45 Urine,Clean Catch Urine Culture - Final No growth. 03/18/25 16:32 Blood Blood Culture - Preliminary NO GROWTH AFTER 24 HOURS 03/18/25 15:45 Blood Blood Culture - Preliminary NO GROWTH AFTER 24 HOURS Constitutional: Present no acute distress, obese, chronically ill appearing and cooperative Head: Present atraumatic and normocephalic ENT: Present normal exam Respiratory: Present normal respiratory effort; Absent rhonchi, wheezes or crackles Cardiac: Present Reg Rate and Rhythm GI: Present soft and normal bowel sounds; Absent distention or tenderness Comment:: Kaur in place Extremities: Present normal inspection and full ROM; Absent edema Skin: Present intact; Absent erythema Neuro: Present Grossly Intact, alert, awake, oriented x 3 and moves all extremities Assessment and Plan *Assessment and plan (1) Acute kidney injury superimposed on CKD: Status: Acute Category: Medical Code(s): N17.9 - Acute kidney failure, unspecified; N18.9 - Chronic kidney disease, unspecified (2) Acute hypotension: Status: Acute Category: Medical Code(s): I95.9 - Hypotension, unspecified (3) Acute respiratory failure: Status: Acute Category: Medical Code(s): J96.00 - Acute respiratory failure, unspecified whether with hypoxia or hypercapnia Plan: Continue supplemental oxygen to maintain SpO2 greater than 90% and wean as tolerated (4) Acute urinary retention: Status: Acute Category: Medical Code(s): R33.8 - Other retention of urine (5) Dehydration: Status: Acute Category: Medical Code(s): E86.0 - Dehydration (6) Adult failure to thrive: Status: Acute Category: Medical Code(s): R62.7 - Adult failure to thrive Plan: 1800-calorie diabetic diet (7) Hypopharyngeal lesion: Status: Acute Category: Medical Code(s): J39.2 - Other diseases of pharynx Plan: ER provider consulted [facility] and they are arranging outpatient follow-up in the ENT clinic for possible scope. Patient informed to follow-up next week. (8) Lymphadenopathy, retroperitoneal: Status: Acute Category: Medical Code(s): R59.0 - Localized enlarged lymph nodes Plan: ER provider consulted [facility] and they are arranging outpatient follow-up in [facility]. 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 Found to have JAYLEN and urinary obstruction. Responding well to Kaur catheter. Catheter removed today. Will monitor for independent voiding. Kidney function back to baseline, awaiting insurance approval for discharge to rehab. Problems addressed as follows: Acute kidney injury: - Seeing improvement, creatinine improved to 1.6 today, BUN 31. Repeat CBC, CMP, magnesium ordered for the morning. - Concern for obstructive component to his JAYLEN. Improved with catheter placement. Catheter removed today, monitor for output. If no output after 12 hours, will replace Kaur and refer to urology as an outpatient - Continue tamsulosin 0.4 mg nightly, initiate finasteride 5 mg daily -Caution with nephrotoxins. Hold RACHEL inhibitor and diuretics New oxygen requirement, unclear the etiology. Mainly while patient is laying down. Room air saturation of 88% at rest. Currently on 2 L, wean as tolerated, goal sats greater 90% - No infiltrates appreciated on CTA of chest obtained in the ED. No indication for antibiotics at this time. Encourage ambulation and patient to get out of bed for improved lung expansion Diabetes: A1c 6.3 in November. Repeat ordered for the morning. Morning glucose of 153 fingersticks ACHS with sliding scale insulin as needed. Hypertension: Seeing some improvement. Will continue to hold at this time, consider resuming amlodipine or lisinopril in the morning pending kidney function and blood pressure Continue gabapentin 100 mg twice daily for neuropathy Continue famotidine 20 mg nightly for GERD Therapy working with patient. Recommend placement for rehab. Social work consulted to assist with Full code Eliquis 5 mg twice daily Diabetic diet
[2025-03-20 15:45] VITALS: BMI 37.8
[2025-03-20 16:00] VITALS: BP 123/71; PULSE 81; RESP 18; TEMP 36.8; O2SAT 92
--- NOTE | 2025-03-20 18:46 | PC.NURSE ---
patient alert and oriented x4. remains on 2L nasal cannula, VSS. Patient told this nurse that he had begun refusing care during the PM shift, however, patient agreed to put his oxygen and pulse ox back on and resume care this morning and has remained pleasant throughout my shift. Patient has voided 500ml clear yellow urine since saravia catheter removal this AM. patient denies any pain or shortness of breath. patient was assisted to chair for lunch today. is at bedside.
[2025-03-20 20:00] VITALS: BP 151/70; PULSE 83; RESP 16; TEMP 36.8; O2SAT 93
[2025-03-20] MEDS: TAMSULOSIN 0.4MG CAPSULE 0.8 MG PO (20:14)
[2025-03-20] MEDS: PRAVASTATIN 20MG TAB 20 MG PO (20:14)
[2025-03-20] MEDS: FAMOTIDINE 20MG TABLET 20 MG PO (20:14)
[2025-03-20 20:26] LABS: POC Glucose,Bedside 158 (70-110)
[2025-03-21] VITALS (7 sets, daily range): BP systolic 110–166; BP diastolic 55–80; PULSE 77–111; RESP 14–18; TEMP 36.4–37; O2SAT 88–98; BMI 37.7
--- NOTE | 2025-03-21 04:57 | PC.NURSE ---
Fresh Ice water given, trash not full. [id number]
--- NOTE | 2025-03-21 05:39 | PC.NURSE ---
v/s, ox4, at bedside. Blood glucose monitored. No acute events to report. Plan of care ongoing.
[2025-03-21 06:49] LABS: POC Glucose,Bedside 144 (70-110)
[2025-03-21 07:48] LABS: Basophils % 0.3 % (0.1-2.0); Eosinophils # 0.4 Kmm3 (0.0-0.4); Eosinophils % 5.6 % (0.1-12.0); Hematocrit 37.5 % (42.0-52.0); Hemoglobin 11.3 g/dL (14.1-18.0); Immature Granulocytes # 0.04 10^3uL; Immature Granulocytes % 0.5 %; Lymphocytes # 1.9 K/mm3 (0.7-4.5); Lymphocytes % 24.1 % (10-50); Mean Corpuscular HGB Conc 30.1 g/dL (31.8-35.4); Mean Corpuscular Volume 89.5 fl (80-94); Mean Platelet Volume 8.7 fl (7.4-10.4); Monocytes # 0.7 K/mm3 (0.1-1.0); Neutrophils # 4.8 K/mm3 (1.8-7.8); Neutrophils % 60.5 % (37.0-80.0); Nucleated Red Blood Cells # 0 10^3/uL; Nucleated Red Blood Cells % 0 %; Platelet Count 376 K/mm3 (142-424); Red Blood Count 4.19 M/mm3 (4.60-6.20); Red Cell Distribution Width 14.4 % (11.5-17.5); Red Cell Distribution Width-SD 46.9 fL; White Blood Count 7.9 K/mm3 (4.8-10.8)
[2025-03-21 08:24] LABS: Albumin Level 4.3 g/dl (3.5-5.0); Chloride 100 mmol/L (98-107); Potassium 4.3 mmoL/L (3.5-5.1); Sodium 140 mmol/L (136-145)
[2025-03-21 08:27] LABS: Alanine Aminotransferase 13 U/L (12-78); Alkaline Phosphatase 85 U/L (38-126); Anion Gap 14.3 mEq/L (5-15); Aspartate Amino Transferase 24 U/L (17-59); Bilirubin,Total 0.3 mg/dl (0.2-1.3); Blood Urea Nitrogen 23 mg/dl (9-20); Calcium 9.8 mg/dl (8.4-10.2); Carbon Dioxide 30 mmol/L (22.0-30.0); Creatinine Clearance Estimated 77 mL/min (50-200); Estimated Glomerular Filt Rate 46 ml/min (>60); GFR (African American) 55 ML/MIN (>60); Globulin 4.1 g/dL (1.3-3.2); Glucose 152 mg/dl (74-100); Total Protein,Serum 8.4 g/dl (6.3-8.2)
[2025-03-21] MEDS: FUROSEMIDE 40MG/4ML VIAL 40 MG IV (08:39)
[2025-03-21] MEDS: GABAPENTIN 100MG CAPSULE 100 MG PO ×2 (08:39→21:48)
[2025-03-21] MEDS: FINASTERIDE 5MG TABLET 5 MG PO (08:39)
[2025-03-21] MEDS: ASPIRIN 81MG CHEWABLE TABLET 81 MG PO (08:39)
[2025-03-21] MEDS: APIXABAN 5MG TABLET 5 MG PO ×2 (08:39→21:48)
[2025-03-21 08:51] LABS: Magnesium 1.6 mg/dl (1.6-2.3)
[2025-03-21 10:52] LABS: POC Glucose,Bedside 163 (70-110)
[2025-03-21] MEDS: humaLOG 100 UNITS/ML 10ML VIAL (SSI) SUBCUT (12:34)
--- NOTE | 2025-03-21 15:01 | PC.NURSE ---
Aox 4, up with assistance times 2, fsbg achs, placement for rehab at [facility].
--- NOTE | 2025-03-21 15:11 | P.PN_ITS ---
Subjective *Date: 03/21/25 *Time: 15:11 Interval history: Feeling somewhat better this morning. Weaned to room air on rounds. Room air saturation of 92%. No nausea or vomiting. Awaiting insurance approval for rehab. Medical Exam Vital signs and Labs for Last 24 Hours: Vital Signs Temp Pulse Resp BP Pulse Ox O2 Del Method O2 Flow Rate 03/21/25 14:29 Room Air 03/21/25 12:05 Room Air 03/21/25 12:00 98.1 F 95 H 18 110/66 95 Room Air 03/21/25 10:47 Room Air 03/21/25 09:51 92 L Room Air 03/21/25 09:00 Nasal Cannula 2 03/21/25 08:00 98.0 F 111 H 18 111/80 97 Nasal Cannula 03/21/25 08:00 98.1 F 111 H 18 111/80 97 Nasal Cannula 03/21/25 08:00 Nasal Cannula 2 03/21/25 06:26 Nasal Cannula 2 03/21/25 05:00 Nasal Cannula 2 03/21/25 04:00 98.6 F 95 H 14 166/55 H 98 Room Air 2 03/21/25 03:00 Nasal Cannula 2 03/21/25 00:17 Nasal Cannula 2 03/21/25 00:00 97.6 F 77 16 125/58 L 88 L Nasal Cannula 2 03/20/25 23:00 Nasal Cannula 2 03/20/25 20:40 Nasal Cannula 2 03/20/25 20:00 Nasal Cannula 2 03/20/25 20:00 98.2 F 83 16 151/70 H 93 L Nasal Cannula 2 03/20/25 18:31 Nasal Cannula 2 03/20/25 17:00 Nasal Cannula 2 03/20/25 16:00 98.3 F 81 18 123/71 92 L Nasal Cannula 2 Intake and Output 03/20/25 03/21/25 03/21/25 23:59 07:59 15:59 Intake Total 280 / 1580 240 / 1200 960 / 1200 Output Total 800 / 2500 600 / 1400 800 / 1400 Balance -520 / -920 -360 / -200 160 / -200 Intake: Intake, Oral Amount 280 / 1580 240 / 1200 960 / 1200 Intake, Oral Supplement Amount 0 / 0 Output: Output, Urine Amount 800 / 2500 600 / 1400 800 / 1400 Other: Number of Unmeasured Voids 0 0 0 Weight 126.28 kg Patient Weight 03/21/25 23:59 Weight 126.28 kg Laboratory Results - last 24 hr 03/20/25 20:17: POC Glucose 158 H 03/21/25 06:37: POC Glucose 144 H 03/21/25 07:30: WBC 7.9, RBC 4.19 L, Hgb 11.3 L, Hct 37.5 L, MCV 89.5, MCH 27.0, MCHC 30.1 L, RDW 14.4, Plt Count 376, MPV 8.7, Neut % (Auto) 60.5, Lymph % (Auto) 24.1, [place] % (Auto) 9.0, Eos % (Auto) 5.6, Baso % (Auto) 0.3, Neut # (Auto) 4.8, Lymph # (Auto) 1.9, [place] # (Auto) 0.7, Eos # (Auto) 0.4, Baso # (Auto) 0.0, Sodium 140, Potassium 4.3, Chloride 100, Carbon Dioxide 30, Anion Gap 14.3, BUN 23 H D, Creatinine 1.50 H, Estimated Creat Clear 77, Estimated GFR 46 L, Est GFR ( Amer) 55 L, Glucose 152 H, Calcium 9.8, Magnesium 1.6 D, Total Bilirubin 0.3, AST 24 D, ALT 13 D, Alkaline Phosphatase 85, Total Protein 8.4 H, Albumin 4.3, Globulin 4.1 H, Albumin/Globulin Ratio 1.0 L 03/21/25 10:40: POC Glucose 163 H I & O for Labs for Last 24 Hours: Intake & Output 03/18/25 03/19/25 03/20/25 03/21/25 23:59 23:59 23:59 23:59 Intake Total 1280 / 1640 1340 / 1580 1200 / 1200 Output Total 825 / 825 2875 / 2875 2500 / 2500 1400 / 1400 Balance -825 / -385 -1595 / -1235 -1160 / -920 -200 / -200 Weight 125.69 kg 125.69 kg 126.78 kg 126.28 kg Microbiology Reports for the Last 24 Hours: Microbiology 03/18/25 16:32 Blood Blood Culture - Preliminary NO GROWTH AFTER 48 HOURS 03/18/25 15:45 Blood Blood Culture - Preliminary NO GROWTH AFTER 48 HOURS Constitutional: Present no acute distress, obese, chronically ill appearing and cooperative Head: Present atraumatic and normocephalic ENT: Present normal exam Respiratory: Present normal respiratory effort; Absent rhonchi, wheezes or crackles Cardiac: Present Reg Rate and Rhythm GI: Present soft and normal bowel sounds; Absent distention or tenderness Comment:: Kaur in place Extremities: Present normal inspection, full ROM and edema (Trace in lower extremities) Skin: Present intact; Absent erythema Neuro: Present Grossly Intact, alert, awake, oriented x 3 and moves all extremities Assessment and Plan *Assessment and plan (1) Acute kidney injury superimposed on CKD: Status: Acute Category: Medical Code(s): N17.9 - Acute kidney failure, unspecified; N18.9 - Chronic kidney disease, unspecified (2) Acute hypotension: Status: Acute Category: Medical Code(s): I95.9 - Hypotension, unspecified (3) Acute respiratory failure: Status: Acute Category: Medical Code(s): J96.00 - Acute respiratory failure, unspecified whether with hypoxia or hyp ercapnia (4) Acute urinary retention: Status: Acute Category: Medical Code(s): R33.8 - Other retention of urine (5) Dehydration: Status: Acute Category: Medical Code(s): E86.0 - Dehydration (6) Adult failure to thrive: Status: Acute Category: Medical Code(s): R62.7 - Adult failure to thrive Plan: 1800-calorie diabetic diet (7) Hypopharyngeal lesion: Status: Acute Category: Medical Code(s): J39.2 - Other diseases of pharynx Plan: ER provider consulted [facility] and they are arranging outpatient follow-up in the ENT clinic for possible scope. Patient informed to follow-up next week. (8) Lymphadenopathy, retroperitoneal: Status: Acute Category: Medical Code(s): R59.0 - Localized enlarged lymph nodes Plan: ER provider consulted [facility] and they are arranging outpatient follow-up in [facility]. 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 Found to have JAYLEN and urinary obstruction. Responding well to Kaur catheter. Catheter removed today. Will monitor for independent voiding. Kidney function back to baseline, awaiting insurance approval for discharge to rehab. Problems addressed as follows: Acute kidney injury: - Creatinine at baseline 1.5, BUN 23. Magnesium 1.6 with potassium 4.3. Replacing per protocol. Repeat CBC and CMP ordered for the morning - Continues to void independently. No indication for further catheterization at this time. - Continue tamsulosin 0.4 mg nightly, initiate finasteride 5 mg daily -Caution with nephrotoxins. Hold RACHEL inhibitor and diuretics New oxygen requirement, unclear the etiology. Improved with diuresis today. Room air saturation of 92%. Monitor for nighttime desaturation. Anticipate ability to discharge to rehab on room air. Diabetes: A1c 6.3 in November. Repeat ordered for the morning. Morning glucose of 153 fingersticks ACHS with sliding scale insulin as needed. Hypertension: Seeing some improvement. Will continue to hold at this time, consider resuming amlodipine or lisinopril in the morning pending kidney function and blood pressure Continue gabapentin 100 mg twice daily for neuropathy Continue famotidine 20 mg nightly for GERD Therapy working with patient. Recommend placement for rehab. Social work consulted to assist with Full code Eliquis 5 mg twice daily Diabetic diet
[2025-03-21 16:28] LABS: POC Glucose,Bedside 128 (70-110)
[2025-03-21] MEDS: FAMOTIDINE 20MG TABLET 20 MG PO (21:48)
[2025-03-21] MEDS: TAMSULOSIN 0.4MG CAPSULE 0.8 MG PO (21:48)
[2025-03-21] MEDS: PRAVASTATIN 20MG TAB 20 MG PO (21:48)
[2025-03-21 21:57] LABS: POC Glucose,Bedside 144 (70-110)
[2025-03-22] VITALS: BP 136/52; PULSE 85; RESP 14; TEMP 36.7; O2SAT 88
[2025-03-22 04:00] VITALS: BP 142/77; PULSE 89; RESP 12; TEMP 37; O2SAT 86; BMI 39.3
--- NOTE | 2025-03-22 04:22 | PC.NURSE ---
Addendum entered by Marita Coronel RN 03/22/25 04:23: monitored. v/s, ox4. No acute events to report. Plan of care ongoing. Original Note: blood glucose monitorewd.
[2025-03-22 05:37] LABS: POC Glucose,Bedside 123 (70-110)
--- NOTE | 2025-03-22 05:46 | PC.NURSE ---
Pt has recieved ice water and bedside tablehas been cleaned off.
[2025-03-22 07:57] LABS: Basophils % 0.5 % (0.1-2.0); Eosinophils # 0.5 Kmm3 (0.0-0.4); Eosinophils % 8.8 % (0.1-12.0); Hematocrit 34.3 % (42.0-52.0); Hemoglobin 10.5 g/dL (14.1-18.0); Immature Granulocytes # 0.02 10^3uL; Immature Granulocytes % 0.3 %; Lymphocytes # 1.2 K/mm3 (0.7-4.5); Lymphocytes % 20.1 % (10-50); Mean Corpuscular HGB Conc 30.6 g/dL (31.8-35.4); Mean Corpuscular Hemoglobin 27.4 pg (27.0-31.2); Mean Corpuscular Volume 89.6 fl (80-94); Monocytes # 0.6 K/mm3 (0.1-1.0); Monocytes % 9.6 % (1.7-9.3); Neutrophils # 3.7 K/mm3 (1.8-7.8); Neutrophils % 60.7 % (37.0-80.0); Nucleated Red Blood Cells # 0 10^3/uL; Nucleated Red Blood Cells % 0 %; Platelet Count 313 K/mm3 (142-424); Red Blood Count 3.83 M/mm3 (4.60-6.20); Red Cell Distribution Width 14.5 % (11.5-17.5); Red Cell Distribution Width-SD 47.7 fL; White Blood Count 6.2 K/mm3 (4.8-10.8)
[2025-03-22 08:00] VITALS: BP 110/71; PULSE 111; RESP 18; TEMP 36.5; O2SAT 95
[2025-03-22 08:13] LABS: Alanine Aminotransferase 10 U/L (12-78); Albumin Level 3.7 g/dl (3.5-5.0); Alkaline Phosphatase 77 U/L (38-126); Anion Gap 14.8 mEq/L (5-15); Aspartate Amino Transferase 44 U/L (17-59); Bilirubin,Total 0.5 mg/dl (0.2-1.3); Blood Urea Nitrogen 22 mg/dl (9-20); Calcium 9.7 mg/dl (8.4-10.2); Carbon Dioxide 27 mmol/L (22.0-30.0); Chloride 100 mmol/L (98-107); Creatinine Clearance Estimated 93 mL/min (50-200); Estimated Glomerular Filt Rate 54 ml/min (>60); GFR (African American) 65 ML/MIN (>60); Globulin 3.7 g/dL (1.3-3.2); Glucose 133 mg/dl (74-100); Potassium 3.8 mmoL/L (3.5-5.1); Sodium 138 mmol/L (136-145); Total Protein,Serum 7.4 g/dl (6.3-8.2)
[2025-03-22 09:01] LABS: Microscopic, Urine URINE MICROSCOPIC (MICROSCOPIC)
[2025-03-22 09:21] LABS: Appearance,Urine CLEAR (Clear); Bilirubin,Urine Negative (Negative); Blood, Urine 1+ (Negative); Color,Urine YELLOW (Yellow); Glucose,Urine (UA) Negative (Negative); Ketones,Urine Negative (Negative); Leukocyte Esterase,Urine Negative (Negative); Nitrate,Urine Negative (Negative); Protein,Urine Negative (Negative)
[2025-03-22 09:42] LABS: Bacteria,Urine Trace /lpf; Squamous Epithelial Cell,Urine Occasional #/hpf (0-5); WBC,Urine Occasional #/hpf (0-3)
[2025-03-22] MEDS: APIXABAN 5MG TABLET 5 MG PO ×2 (10:22→20:52)
[2025-03-22] MEDS: FINASTERIDE 5MG TABLET 5 MG PO (10:22)
[2025-03-22] MEDS: ASPIRIN 81MG CHEWABLE TABLET 81 MG PO (10:22)
[2025-03-22] MEDS: GABAPENTIN 100MG CAPSULE 100 MG PO ×2 (10:25→20:52)
[2025-03-22 12:00] VITALS: BP 112/76; PULSE 82; RESP 18; TEMP 36.5; O2SAT 92
[2025-03-22 12:14] LABS: POC Glucose,Bedside 134 (70-110)
--- NOTE | 2025-03-22 15:21 | P.PN_ITS ---
Subjective *Date: 03/22/25 *Time: 15:21 Interval history: On room air, denies chest pain. Voiding independently. No nausea or vomiting. Awaiting place Medical Exam Vital signs and Labs for Last 24 Hours: Vital Signs Temp Pulse Resp BP Pulse Ox O2 Del Method 03/22/25 13:00 Room Air 03/22/25 12:00 97.7 F 82 18 112/76 92 L Room Air 03/22/25 10:53 Room Air 03/22/25 09:00 Room Air 03/22/25 08:00 97.7 F 111 H 18 110/71 95 Room Air 03/22/25 07:52 Room Air 03/22/25 06:24 Room Air 03/22/25 04:25 Room Air 03/22/25 04:00 98.6 F 89 12 142/77 H 86 L Room Air 03/22/25 03:00 Room Air 03/22/25 00:44 Room Air 03/22/25 00:00 98.1 F 85 14 136/52 L 88 L Room Air 03/21/25 23:00 Room Air 03/21/25 21:00 Room Air 03/21/25 20:00 Room Air 03/21/25 19:46 98.1 F 87 14 129/69 91 L Room Air 03/21/25 18:17 Room Air 03/21/25 16:00 98.0 F 81 18 116/69 93 L Room Air 03/21/25 15:48 Room Air Intake and Output 03/21/25 03/22/25 03/22/25 23:59 07:59 15:59 Intake Total 720 / 1920 600 / 600 Output Total 400 / 1900 300 / 850 550 / 850 Balance 320 / 20 -300 / -250 50 / -250 Intake: Intake, Oral Amount 720 / 1920 600 / 600 Output: Output, Urine Amount 400 / 1900 300 / 850 550 / 850 Other: Number of Unmeasured Voids 0 0 0 Weight 131.723 kg Patient Weight 03/22/25 23:59 Weight 131.723 kg Laboratory Results - last 24 hr 03/21/25 16:22: POC Glucose 128 H 03/21/25 21:47: POC Glucose 144 H 03/22/25 05:30: POC Glucose 123 H 03/22/25 07:30: WBC 6.2, RBC 3.83 L, Hgb 10.5 L, Hct 34.3 L, MCV 89.6, MCH 27.4, MCHC 30.6 L, RDW 14.5, Plt Count 313, MPV 9.0, Neut % (Auto) 60.7, Lymph % (Auto) 20.1, [place] % (Auto) 9.6 H, Eos % (Auto) 8.8, Baso % (Auto) 0.5, Neut # (Auto) 3.7, Lymph # (Auto) 1.2, [place] # (Auto) 0.6, Eos # (Auto) 0.5 H, Baso # (Auto) 0.0, Sodium 138, Potassium 3.8, Chloride 100, Carbon Dioxide 27, Anion Gap 14.8, BUN 22 H, Creatinine 1.30 H, Estimated Creat Clear 93, Estimated GFR 54 L, Est GFR ( Amer) 65, Glucose 133 H, Calcium 9.7, Total Bilirubin 0.5, AST 44 D, ALT 10 L, Alkaline Phosphatase 77, Total Protein 7.4, Albumin 3.7 D, Globulin 3.7 H, Albumin/Globulin Ratio 1.0 L 03/22/25 08:53: Urine Color Yellow, Urine Appearance Clear, Urine pH 7.0, Ur Specific [place] 1.010, Urine Protein Negative, Urine Glucose (UA) Negative, Urine Ketones Negative, Urine Blood 1+ A, Urine Nitrate Negative, Urine Bilirubin Negative, Urine Urobilinogen 1.0, Ur Leukocyte Esterase Negative, Urine RBC 10-20, Urine WBC Occasional, Ur Squamous Epith Cells Occasional, Urine Bacteria Trace 03/22/25 12:04: POC Glucose 134 H I & O for Labs for Last 24 Hours: Intake & Output 03/19/25 03/20/25 03/21/25 03/22/25 23:59 23:59 23:59 23:59 Intake Total 1280 / 1640 1340 / 1580 1920 / 1920 600 / 600 Output Total 2875 / 2875 2500 / 2500 1800 / 1900 850 / 850 Balance -1595 / -1235 -1160 / -920 120 / 20 -250 / -250 Weight 125.69 kg 126.78 kg 126.28 kg 131.723 kg Constitutional: Present no acute distress, obese, chronically ill appearing and cooperative Head: Present atraumatic and normocephalic ENT: Present normal exam Respiratory: Present normal respiratory effort; Absent rhonchi, wheezes or crackles Cardiac: Present Reg Rate and Rhythm GI: Present soft and normal bowel sounds; Absent distention or tenderness Comment:: Kaur in place Extremities: Present normal inspection, full ROM and edema (Trace in lower extremities) Skin: Present intact; Absent erythema Neuro: Present Grossly Intact, alert, awake, oriented x 3 and moves all extremities Assessment and Plan *Assessment and plan (1) Acute kidney injury superimposed on CKD: Status: Acute Category: Medical Code(s): N17.9 - Acute kidney failure, unspecified; N18.9 - Chronic kidney disease, unspecified (2) Acute hypotension: Status: Acute Category: Medical Code(s): I95.9 - Hypotension, unspecified (3) Acute respiratory failure: Status: Acute Category: Medical Code(s): J96.00 - Acute respiratory failure, unspecified whether with hypoxia or hypercapnia (4) Acute urinary retention: Status: Acute Category: Medical Code(s): R33.8 - Other retention of urine (5) Dehydration: Status: Acute Category: Medical Code(s): E86.0 - Dehydration (6) Adult failure to thrive: Status: Acute Category: Medical Code(s): R62.7 - Adult failure to thrive Plan: 1800-calorie diabetic diet (7) Hypopharyngeal lesion: Status: Acute Category: Medical Code(s): J39.2 - Other diseases of pharynx Plan: ER provider consulted [facility] and they are arranging outpatient follow-up in the ENT clinic for possible scope. Patient informed to follow-up next week. (8) Lymphadenopathy, retroperitoneal: Status: Acute Category: Medical Code(s): R59.0 - Localized enlarged lymph nodes Plan: ER provider consulted [facility] and they are arranging outpatient follow-up in [facility]. 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 Found to have JAYLEN and urinary obstruction. Has done well with catheter removal, Kaur out for over 48 hours with independent voiding. Kidney function back to baseline, awaiting insurance approval for discharge to rehab. Problems addressed as follows: Acute kidney injury: - Creatinine 1.3, BUN 22, potassium 3.8. White count 6.2, hemoglobin 10.5. Labs at baseline. - Lab holiday in the morning. Creatinine at baseline 1.5, BUN 23. Magnesium 1.6 with potassium 4.3. Replacing per protocol. Repeat CBC and CMP ordered for the morning - Continues to void independently. No indication for further catheterization at this time. - Increase tamsulosin to 0.8 mg nightly. Continue finasteride 5 mg daily Stable on room air for 24 hours. Doing better with diuresis. Monitor for oxygen needs, goal sats greater 90% Diabetes: A1c 7.5. Morning glucose 133. Responding to sliding scale insulin with fingersticks ACHS. Hypertension: Stable, systolic 112 today. consider resuming amlodipine or lisinopril in the morning pending kidney function and blood pressure Continue gabapentin 100 mg twice daily for neuropathy Continue famotidine 20 mg nightly for GERD Therapy working with patient. Recommend placement for rehab. Social work consulted to assist with Full code Eliquis 5 mg twice daily Diabetic diet
[2025-03-22] MEDS: FUROSEMIDE 40MG/4ML VIAL 40 MG IV (15:50)
--- NOTE | 2025-03-22 15:55 | PC.NURSE ---
Pt is A&O x4. Currently resting in bed. Lasix 40 mg IV just administered. Pt instructed to use urinal. Pt has remained on RA. O2 sats lower 90s. VSS. Has been in bed aside from sitting on side of bed for meals. PT worked with him x1 today. Call light within reach. is at bedside.
[2025-03-22 15:59] LABS: POC Glucose,Bedside 169 (70-110)
[2025-03-22 16:00] VITALS: BP 122/76; PULSE 101; RESP 18; TEMP 36.9; O2SAT 91
[2025-03-22 20:00] VITALS: BP 127/61; PULSE 86; RESP 12; TEMP 36.7; O2SAT 90
[2025-03-22] MEDS: FAMOTIDINE 20MG TABLET 20 MG PO (20:52)
[2025-03-22] MEDS: TAMSULOSIN 0.4MG CAPSULE 0.8 MG PO (20:52)
[2025-03-22] MEDS: PRAVASTATIN 20MG TAB 20 MG PO (20:52)
[2025-03-22 21:02] LABS: POC Glucose,Bedside 162 (70-110)
[2025-03-23] VITALS: BP 132/60; PULSE 86; RESP 14; TEMP 36.4; O2SAT 89
[2025-03-23 04:00] VITALS: BP 142/58; PULSE 85; RESP 12; TEMP 36.8; O2SAT 86; BMI 21.0
--- NOTE | 2025-03-23 05:39 | PC.NURSE ---
v/s, ox4, RA. Blood glucose monitored. No acute events to report. Plan of care ongoing.
--- NOTE | 2025-03-23 05:52 | PC.NURSE ---
Passed Water and wiped down bedside table.
[2025-03-23 06:49] LABS: POC Glucose,Bedside 142 (70-110)
[2025-03-23 08:00] VITALS: BP 117/64; PULSE 98; RESP 16; TEMP 36.9; O2SAT 91
[2025-03-23] MEDS: APIXABAN 5MG TABLET 5 MG PO (08:28)
[2025-03-23] MEDS: FUROSEMIDE 40 MG TABLET PO (08:28)
[2025-03-23] MEDS: ASPIRIN 81MG CHEWABLE TABLET 81 MG PO (08:28)
[2025-03-23] MEDS: FINASTERIDE 5MG TABLET 5 MG PO (08:28)
[2025-03-23] MEDS: GABAPENTIN 100MG CAPSULE 100 MG PO (08:31)
--- NOTE | 2025-03-23 08:40 | PC.NURSE ---
notified that pt will be going to [place] today.
--- OUTSIDE RECORDS SUMMARY | 2025-05-10 20:00 | XMS_ITS | Clinical Summary ---
Author Organization Unknown Care Team Providers Care Hardware Design Engineer Name Role Phone TEE MARYBALA Unavailable Unava taye IVORY PT, JOSEPHINE Unavailable Unavailable EDWARD CVT RN, CARLA Unavailable Unavailable Payers Payer Name Policy Type Policy Number Effective Date Expira tion Date [employer].STEVO.PPO.C.AUTH [id number] Problems Condition Name Condition Details Condition Category Status Onset Date Resolution Date Last Treatment Date Treating Clinician Comments AFTERCARE FOLLOWING JOINT REPLACEMENT SURGERY Active 03-10 00:00: 00 Allergies, Adverse Reactions, Alerts Allergy Name Allergy Type Status Severity Reaction(s) Onset Date Inactive Date Treating Clinician Comments TETANUS TOXIODS Propensity to adverse reactions Active 2025-02 09:35:4 6 Vital Signs Vital Name Observation Time Observation Value Commen ts Temperature 2025-03-13 16:24:00.000 98.6 [degF] BMI (%) 2025-03-13 16:23:42.000 37 kg/m2 Height 2025-03-13 16:23:36.000 72 [in_us] Pulse 2025-03-13 16:24:00.000 75 /min O2 Saturation (%) 2025-03-13 16:24:00.000 97 % Respirations 2025-03-13 16:24:00.000 18 /min Weight (lbs) 2025-03-13 16:23:42.000 276 [lb_av] Systolic Blood Pressure 2025-03-13 16:24:00.000 108 mm [Hg] Diastolic Blood Pressure 2025-03-13 16:24:00.000 64 mm [Hg] Plan of Treatment Planned Activity Planned Date Details Comments Future Scheduled Test AGENCY MAY PERFORM A RESUMPTION OF CARE VISIT FOLLOWING ANY HOSPITAL ADMISSION. PT TO EVALUATE, OBSERVE / ASSESS, AND MONITOR, CVT RN TO OBSERVE AND MONITOR, PROVIDE SKILLED THERAPEUTIC INTERVENTION, ACTIVITY, EDUCATION, AND TRAINING TO ADDRESS; [code = AGENCY MAY PERFORM A RESUMPTION OF CARE VISIT FOLLOWING ANY HOSPITAL ADMISSION. PT TO EVALUATE, OBSERVE / ASSESS, AND MONITOR, CVT RN TO OBSERVE AND MONITOR, PROVIDE SKILLED THERAPEUTIC INTERVENTION, ACTIVITY, EDUCATION, AND TRAINING TO ADDRESS;] Future Scheduled Test SIT TO/FRO M STAND TRANSFERS (PT/CVT RN) [code = SIT TO/FROM STAND TRANSFERS (PT/CVT RN)] Future Scheduled Test BED MOBILI TY (PT/CVT RN) [code = BED MOBILITY (PT/CVT RN)] Future Scheduled Test PT/CVT RN TO PROVIDE GAIT TRAINING FOR IMPROVED MOBILITY AND /OR TO NORMALIZE GAIT PATTERN [code = PT/CVT RN TO PROVIDE GAIT TRAINING FOR IMPROVED MOBILITY AND /OR TO NORMALIZE GAIT PATTERN] Future Scheduled Test NEUROMUSCU LAR RE-EDUCATION / BALANCE / POSTURAL CONTROL (PT) [code = NEUROMUSCULAR RE-EDUCATION / BALANCE / POSTURAL CONTROL (PT)] Future Scheduled Test THERAPEUTI C EXERCISES AND ESTABLISHING A HOME EXERCISE PROGRAM (PT/CVT RN) [code = THERAPEUTIC EXERCISES AND ESTABLISHING A HOME EXERCISE PROGRAM (PT/CVT RN)] Future Scheduled Test PT/CVT RN TO TEACH KNEE REPLACEMENT SELF-MANAGEMENT [code = PT/CVT RN TO TEACH KNEE REPLACEMENT SELF-MANAGEMENT] Future Scheduled Test PT TO ASSE SS / CVT RN TO MONITOR FOR AND REPORT EARLY SIGNS OF ANTICOAGULANT TOXICITY TO THE PHYSICIAN AND/OR THE RN CLINICAL COMPUTER SUPPORT SPECIALIST FOR PHYSICIAN NOTIFICATION AND TO PROVIDE PATIENT/CAREGIVER EDUCATION ON ANTICOAGULANT THERAPY [code = PT TO ASSESS / CVT RN TO MONITOR FOR AND REPORT EARLY SIGNS OF ANTICOAGULANT TOXICITY TO THE PHYSICIAN AND/OR THE RN CLINICAL COMPUTER SUPPORT SPECIALIST FOR PHYSICIAN NOTIFICATION AND TO PROVIDE PATIENT/CAREGIVER EDUCATION ON ANTICOAGULANT THERAPY] Future Scheduled Test PT / CVT RN T O MONITOR AND EDUCATE ON OXYGEN SATURATION DURING ADLS/IADLS, NOTIFY PHYSICIAN AND/OR THE RN CLINICAL COMPUTER SUPPORT SPECIALIST FOR PHYSICIAN NOTIFICATION AND IF O2 SATS BELOW PHYSICIAN ORDERED PARAMETERS AFTER 10 MIN OF REST [code = PT / CVT RN TO MONITOR AND EDUCATE ON OXYGEN SATURATION DURING ADLS/IADLS, NOTIFY PHYSICIAN AND/OR THE RN CLINICAL COMPUTER SUPPORT SPECIALIST FOR PHYSICIAN NOTIFICATION AND IF O2 SATS BELOW PHYSICIAN ORDERED PARAMETERS AFTER 10 MIN OF REST] Future Scheduled Test PT / CVT RN T O INSTRUCT PATIENT/CAREGIVER ON RISK FOR HOSPITALIZATION/EMERGENCY ROOM VISITS, TEACH SIGNS AND SYMPTOMS THAT PUT PATIENT AT RISK, WHEN TO NOTIFY NURSE/PHYSICIAN OF COMPLICATIONS/DECLINE, AND WHEN TO CALL 911. [code = PT / CVT RN TO INSTRUCT PATIENT/CAREGIVER ON RISK FOR HOSPITALIZATION/EMERGENCY ROOM VISITS, TEACH SIGNS AND SYMPTOMS THAT PUT PATIENT AT RISK, WHEN TO NOTIFY NURSE/PHYSICIAN OF COMPLICATIONS/DECLINE, AND WHEN TO CALL 911.] Future Scheduled Test PT / CVT RN T O MONITOR FOR HYPO/HYPERGLYCEMIA AND CONDUCT ROUTINE FOOT INSPECTIONS. RECORD PATIENT REPORTED BLOOD SUGAR LEVELS AND NOTIFY PHYSICIAN AND/OR THE RN CLINICAL COMPUTER SUPPORT SPECIALIST FOR PHYSICIAN NOTIFICATION IF BLOOD SUGAR LEVELS ARE OUTSIDE ORDERED PARAMETERS. TEACH PATIENT/CAREGIVER ON DAILY FOOT INSPECTIONS [code = PT / CVT RN TO MONITOR FOR HYPO/HYPERGLYCEMIA AND CONDUCT ROUTINE FOOT INSPECTIONS. RECORD PATIENT REPORTED BLOOD SUGAR LEVELS AND NOTIFY PHYSICIAN AND/OR THE RN CLINICAL COMPUTER SUPPORT SPECIALIST FOR PHYSICIAN NOTIFICATION IF BLOOD SUGAR LEVELS ARE OUTSIDE ORDERED PARAMETERS. TEACH PATIENT/CAREGIVER ON DAILY FOOT INSPECTIONS] Future Scheduled Test SKILLED NU RSING TO EVALUATE FOR MEDICATION AND PATHOLOGY MANAGEMENT. [code = GROUP HOME TO EVALUATE FOR MEDICATION AND PATHOLOGY MANAGEMENT. ] Goal Patient Goal - I NDEPENDENCE WITH FUNCTIONAL ACTIVITIES WITHIN HOME Goal Provider Goal - Goal Provider Goal - PT STG: PATIENT WILL DEMONSTRATE IMPROVED ABILITY TO PERFORM SIT TO/FROM STAND TRANSFERS TO REDUCE THE RISK OF SKIN BREAKDOWN AND REDUCE FALL RISK FROM MOD TO MIN WITHIN 4 WEEKS PT LTG: PATIENT WILL DEMONSTRATE IMPROVED ABILITY TO PERFORM SIT TO/FROM STAND TRANSFERS TO REDUCE THE RISK OF SKIN BREAKDOWN AND REDUCE FALL RISK FROM MOD TO IND WITHIN 8 WEEKS Goal Provider Goal - PT STG: PATIENT WILL DEMONSTRATE IMPROVED BED MOBILITY TO REDUCE THE RISK OF SKIN INTEGRITY ISSUES AND/OR PAIN FROM MOD TO MIN WITHIN 4 WEEKS PT LTG: PATIENT WILL DEMONSTRATE IMPROVED BED MOBILITY TO REDUCE THE RISK OF SKIN INTEGRITY ISSUES AND/OR PAIN FROM MOD TO IND WITHIN 8 WEEKS Goal Provider Goal - PT STG: PATIENT WILL DEMONSTRATE IMPROVED 6 MINUTE WALK TEST AMBULATION FROM 40 FT MOD TO 100 FT MIN WITH APPROPRIATE AD WITHIN 4 WEEKS. PT LTG: PATIENT WILL DEMONSTRATE IMPROVED 6 MINUTE WALK TEST AMBULATION FROM 40 FT MOD TO 300 FT IND WITH APPROPRIATE AD WITHIN 8 WEEKS. Goal Provider Goal - PT LTG: PATIENT WILL DEMONSTRATE REDUCED FALL RISK EVIDENCED BY TUG TEST (CUT SCORE >11 SECONDS INDICATES INCREASED FALL RISK) IMPROVING FROM UNABLE TO LESS THAN OR EQUAL TO 11 SECONDS WITHIN 8 WEEKS Goal Provider Goal - PT STG: PATIENT WILL DEMONSTRATE IMPROVEMENT ON CHAIR RISE TEST FROM 0 TO 2 INDICATING DECREASED FALL RISK WITHIN 4 WEEKS. PT LTG: PATIENT WILL DEMONSTRATE IMPROVEMENT ON CHAIR RISE TEST FROM 0 TO 5 INDICATING DECREASED FALL RISK WITHIN 8 WEEKS. PT LTG: PATIENT WILL DEMONSTRATE INDEPENDENCE AND COMPLIANCE WITH HEP WITHIN 4 WEEKS Goal Provider Goal - PT GOAL: PATIENT WILL DEMONSTRATE OPTIMAL OUTCOMES, INCLUDING INCREASED ROM AND STRENGTH AND FUNCTIONAL MOBILITY FOLLOWING KNEE SURGERY BY END OF EPISODE. Goal Provider Goal - PT LTG: PATIENT WILL NOT EXHIBIT SIGNS AND SYMPTOMS OF ANTICOAGULANT TOXICITY THROUGHOUT EPISODE OF CARE. Goal Provider Goal - PT LTG: PATIENT WILL MAINTAIN OXYGEN SATURATION WITHIN PHYSICIAN ORDERED PARAMETERS THROUGHOUT EPISODE OF CARE. Goal Provider Goal - PT GOAL: PATIENT/CAREGIVER WILL VERBALIZE UNDERSTANDING OF SIGNS AND SYMPTOMS THAT PUT THE PATIENT AT RISK FOR HOSPITALIZATION /EMERGENCY ROOM VISITS, WHEN TO NOTIFY NURSE/PHYSICIAN OF COMPLICATIONS/DECLINE AND WHEN TO CALL 911. Goal Provider Goal - PATIENTS BLOOD SUGAR WILL REMAIN WELL CONTROLLED WITH SELF-MANAGEMENT THROUGHOUT EPISODE OF CARE. Goal Provider Goal - Encounters Start Date/Time End Date/Time Encounter Type Admission Type Attending Clinicians Care Facility Care Department Encounter ID Discharge Date Discharge Status Discharge Condition Discharge Reason Percent Goals Met 2025-03-13 00:00:00 2025-05-11 00:00:00 Outpatient NEW ADMISSION JOSEPHINE IVORY [facility] [id number]
--- OUTSIDE RECORDS SUMMARY | 2025-05-10 20:00 | XMS_ITS | Clinical Summary ---
Author Organization Unknown Care Team Providers Care Senior Clinical Research Scientist Name Role Phone TEE MARYBALA Unavailable Unava taye IVORY PT, JOSEPHINE Unavailable Unavailable EDWARD CRM MANAGER, CARLA Unavailable Unavailable Payers Payer Name Policy Type Policy Number Effective Date Expira tion Date [employer].STEVO.PPO.C.AUTH [id number] Problems Condition Name Condition Details Condition Category [...] TO EVALUATE, OBSERVE / ASSESS, AND MONITOR, CRM MANAGER TO OBSERVE AND MONITOR, PROVIDE SKILLED THERAPEUTIC INTERVENTION, ACTIVITY, EDUCATION, AND TRAINING TO ADDRESS; [code = AGENCY MAY PERFORM A RESUMPTION OF CARE VISIT FOLLOWING ANY HOSPITAL ADMISSION. PT TO EVALUATE, OBSERVE / ASSESS, AND MONITOR, CRM MANAGER TO OBSERVE AND MONITOR, PROVIDE SKILLED THERAPEUTIC INTERVENTION, ACTIVITY, EDUCATION, AND TRAINING TO ADDRESS;] Future Scheduled Test SIT TO/FRO M STAND TRANSFERS (PT/CRM MANAGER) [code = SIT TO/FROM STAND TRANSFERS (PT/CRM MANAGER)] Future Scheduled Test BED MOBILI TY (PT/CRM MANAGER) [code = BED MOBILITY (PT/CRM MANAGER)] Future Scheduled Test PT/CRM MANAGER TO PROVIDE GAIT TRAINING FOR IMPROVED MOBILITY AND /OR TO NORMALIZE GAIT PATTERN [code = PT/CRM MANAGER TO PROVIDE GAIT TRAINING FOR IMPROVED MOBILITY AND /OR TO NORMALIZE GAIT PATTERN] Future Scheduled Test NEUROMUSCU LAR RE-EDUCATION / BALANCE / POSTURAL CONTROL (PT) [code = NEUROMUSCULAR RE-EDUCATION / BALANCE / POSTURAL CONTROL (PT)] Future Scheduled Test THERAPEUTI C EXERCISES AND ESTABLISHING A HOME EXERCISE PROGRAM (PT/CRM MANAGER) [code = THERAPEUTIC EXERCISES AND ESTABLISHING A HOME EXERCISE PROGRAM (PT/CRM MANAGER)] Future Scheduled Test PT/CRM MANAGER TO TEACH KNEE REPLACEMENT SELF-MANAGEMENT [code = PT/CRM MANAGER TO TEACH KNEE REPLACEMENT SELF-MANAGEMENT] Future Scheduled Test PT TO ASSE SS / CRM MANAGER TO MONITOR FOR AND REPORT EARLY SIGNS OF ANTICOAGULANT TOXICITY TO THE PHYSICIAN AND/OR THE RN CLINICAL PERMIT TECHNICIAN FOR PHYSICIAN NOTIFICATION AND TO PROVIDE PATIENT/CAREGIVER EDUCATION ON ANTICOAGULANT THERAPY [code = PT TO ASSESS / CRM MANAGER TO MONITOR FOR AND REPORT EARLY SIGNS OF ANTICOAGULANT TOXICITY TO THE PHYSICIAN AND/OR THE RN CLINICAL PERMIT TECHNICIAN FOR PHYSICIAN NOTIFICATION AND TO PROVIDE PATIENT/CAREGIVER EDUCATION ON ANTICOAGULANT THERAPY] Future Scheduled Test PT / CRM MANAGER T O MONITOR AND EDUCATE ON OXYGEN SATURATION DURING ADLS/IADLS, NOTIFY PHYSICIAN AND/OR THE RN CLINICAL PERMIT TECHNICIAN FOR PHYSICIAN NOTIFICATION AND IF O2 SATS BELOW PHYSICIAN ORDERED PARAMETERS AFTER 10 MIN OF REST [code = PT / CRM MANAGER TO MONITOR AND EDUCATE ON OXYGEN SATURATION DURING ADLS/IADLS, NOTIFY PHYSICIAN AND/OR THE RN CLINICAL PERMIT TECHNICIAN FOR PHYSICIAN NOTIFICATION AND IF O2 SATS BELOW PHYSICIAN ORDERED PARAMETERS AFTER 10 MIN OF REST] Future Scheduled Test PT / CRM MANAGER T O INSTRUCT PATIENT/CAREGIVER ON RISK FOR HOSPITALIZATION/EMERGENCY ROOM VISITS, TEACH SIGNS AND SYMPTOMS THAT PUT PATIENT AT RISK, WHEN TO NOTIFY NURSE/PHYSICIAN OF COMPLICATIONS/DECLINE, AND WHEN TO CALL 911. [code = PT / CRM MANAGER TO INSTRUCT PATIENT/CAREGIVER ON RISK FOR HOSPITALIZATION/EMERGENCY ROOM VISITS, TEACH SIGNS AND SYMPTOMS THAT PUT PATIENT AT RISK, WHEN TO NOTIFY NURSE/PHYSICIAN OF COMPLICATIONS/DECLINE, AND WHEN TO CALL 911.] Future Scheduled Test PT / CRM MANAGER T O MONITOR FOR HYPO/HYPERGLYCEMIA AND CONDUCT ROUTINE FOOT INSPECTIONS. RECORD PATIENT REPORTED BLOOD SUGAR LEVELS AND NOTIFY PHYSICIAN AND/OR THE RN CLINICAL PERMIT TECHNICIAN FOR PHYSICIAN NOTIFICATION IF BLOOD SUGAR LEVELS ARE OUTSIDE ORDERED PARAMETERS. TEACH PATIENT/CAREGIVER ON DAILY FOOT INSPECTIONS [code = PT / CRM MANAGER TO MONITOR FOR HYPO/HYPERGLYCEMIA AND CONDUCT ROUTINE FOOT INSPECTIONS. RECORD PATIENT REPORTED BLOOD SUGAR LEVELS AND NOTIFY PHYSICIAN AND/OR THE RN CLINICAL PERMIT TECHNICIAN FOR PHYSICIAN NOTIFICATION IF BLOOD SUGAR LEVELS ARE OUTSIDE ORDERED PARAMETERS. TEACH PATIENT/CAREGIVER ON DAILY FOOT INSPECTIONS] Future Scheduled Test SKILLED NU RSING TO EVALUATE FOR MEDICATION AND PATHOLOGY MANAGEMENT. [code = HALF-WAY TO EVALUATE FOR MEDICATION AND PATHOLOGY MANAGEMENT. [...] 2025-05-11 00:00:00 Outpatient NEW ADMISSION JOSEPHINE IVORY [facility] [id number]
== END 2025-03-23 10:45 | DRG 683 ==
LOC: ER 19:57 → 2ND 20:07
PROVIDERS: Nurse Practitioner Family; Admitting Provider Internal Medicine Adolescent Medicine; Emergency Provider Emergency Medicine; PCP Internal Medicine; Visit Provider Internal Medicine Adolescent Medicine
DX: N17.9 Acute kidney failure, unspecified (principal); E87.0 Hyperosmolality and hypernatremia; E87.1 Hypo-osmolality and hyponatremia; Z66 Do not resuscitate; E78.5 Hyperlipidemia, unspecified; I12.9 Hypertensive chronic kidney disease with stage 1 through stage 4 chronic kidney disease, or unspecified chronic kidney disease; E11.22 Type 2 diabetes mellitus with diabetic chronic kidney disease; N18.9 Chronic kidney disease, unspecified; N13.9 Obstructive and reflux uropathy, unspecified; K21.9 Gastro-esophageal reflux disease without esophagitis; I95.9 Hypotension, unspecified; R33.8 Other retention of urine; E86.0 Dehydration; R62.7 Adult failure to thrive; J39.2 Other diseases of pharynx; R59.0 Localized enlarged lymph nodes; E83.42 Hypomagnesemia; D50.9 Iron deficiency anemia, unspecified; E11.42 Type 2 diabetes mellitus with diabetic polyneuropathy; Z96.651 Presence of right artificial knee joint; Z79.899 Other long term (current) drug therapy; Z79.01 Long term (current) use of anticoagulants; Z79.85 Long-term (current) use of injectable non-insulin antidiabetic drugs; Z79.82 Long term (current) use of aspirin; Z79.84 Long term (current) use of oral hypoglycemic drugs; Z79.83 Long term (current) use of bisphosphonates; Z88.7 Allergy status to serum and vaccine; Z86.718 Personal history of other venous thrombosis and embolism; Z86.711 Personal history of pulmonary embolism
CPT/HCPCS: 36415; 51702; 70490; 71250; 74176; 80048; 80053; 80074; 81001; 82803; 82962; 83036; 83605; 83690; 83735; 83880; 84100; 84436; 84443; 84484; 85025; 85610; 85730; 87040; 87086; 87389; 87636; 93005; 97162; 97166; 97530; J0696; J1644; J1938; J2405; J3475; J7030; J7120

== ENCOUNTER 2025-04-09 10:20 | Outpatient (CLI) | payer MEDICARE, SELFPAY ==
--- OUTSIDE RECORDS SUMMARY | 2025-02-12 10:20 | XMS_ITS | Encounter Summary ---
Author Organization [facility] Address [address] [place] [address] Care Team Providers Care Ironer Machine Name Role Phone Nader Fields MD Primary Care Provider [phone] Reason for Visit * Reason Comments Post-op Follow-up Encounter Details Date Type Department Care Team ([facility] st Contact Info) Description 02/12/2025 10:20 AM EDT Office Visit Medical Office Building Surgery Spine & Joint [address] [facility], [address] [place] [address] Liya Soto PA [address] [facility] [address] [place] [address] S/P total knee arthroplasty, right [...] any time in the past 12 m [facility], were you homeless or living in a correction (including now)? No 02/03/2025 Utilities Answer Date Recorded In the past 12 months has th e [employer], gas, oil, or water company threatened to [...] currently still admitted to rehabilitation facility in [place]. He presents today in a wheelchair. Objective: [...] Building Surgery Spine & Joint [address] [facility], [address] [place] [address] Leon Anne MD [address] [facility] [address] [place] [address] 07/31/2025 12:20 PM EST Office Visit [facility] [address] [place] [address] Saroj Anderson MD [address] [place] [phone] documented as of this encounter Goals Goal [...] documented as of this encounter Care Teams Ironer Machine Relationship Specialty Start Date End Date Nader Fields MD [address] [place] [address] [address] [place] [address] PCP - General 06/16/24 documented as of this encounter
--- OUTSIDE RECORDS SUMMARY | 2025-03-17 10:57 | XMS_ITS | Encounter Summary ---
Author Organization [facility] Address [address] [place] [address] Care Team Providers Care Passenger Car Cleaning Supervisor Name Role Phone Nader Fields MD Primary Care Provider [phone] Encounter Details Date Type Department Care Team (Latest Contact Info) Description 03/17/2025 10:57 AM EDT - 03/17/2025 11:59 PM EDT Hospital Encounter Medical Office Building Radiology [address] [place] [address] S/P total knee arthroplasty, right [...] any time in the past 12 m [facility], were you homeless or living in a group home (including now)? No 02/03/2025 Utilities Answer Date Recorded In the past 12 months has th e [employer], gas, oil, or water company threatened [...] 6 hours as needed for pain. Under [place] law, monthly prescriptions (30 days) can be [...] symptoms continue 1 each 01/29/2025 nystatin (Mycostatin) 497291 UNIT/GM powder Apply to skin folds twice daily 60 g 01/29/2025 nystatin (Mycostatin) 480501 UNIT/GM powder Apply to skin folds twice [...] Building Surgery Spine & Joint [address] [facility], [address] [place] [address] Leon Anne MD [address] [facility] [address] [place] [address] 07/31/2025 12:20 PM EST Office Visit [facility] [address] [place] [phone] Saroj Anderson MD [address] [place] [phone] documented as of this encounter Goals [...] documented as of this encounter Care Teams Passenger Car Cleaning Supervisor Relationship Specialty Start Date End Date Nader Fields MD [address] [place] [address] [address] [place] [address] PCP - General 06/16/24 documented as of this encounter
--- OUTSIDE RECORDS SUMMARY | 2025-03-17 11:30 | XMS_ITS | Encounter Summary ---
Author Organization [facility] Address [address] [place] [address] Care Team Providers Care High School Social Science Teacher Name Role Phone Nader Fields MD Primary Care Provider [phone] Reason for Visit * Reason Comments Post-op Encounter Details Date Type Department Care Team ([facility] st Contact Info) Description 03/17/2025 11:30 AM EDT Office Visit Medical Office Building Surgery Spine & Joint [address] [facility], [address] [place] [address] Leon Anne MD [address] [place] [address] S/P total knee arthroplasty, right [...] any time in the past 12 m [facility], were you homeless or living in a custodial (including now)? No 02/03/2025 Utilities Answer Date [...] Building Surgery Spine & Joint [address] [facility], [address] [place] [address] Leon Anne MD [address] [facility] 201 [place] [address] 07/31/2025 12:20 PM EST Office Visit [facility] [address] [place] [address] Saroj Anderson MD [address] [place] [phone] documented as of this encounter Goals [...] documented as of this encounter Care Teams High School Social Science Teacher Relationship Specialty Start Date End Date Nader Fields MD [address] [place] [address] [address] [place] [address] PCP - General 06/16/24 documented as of this encounter
--- OUTSIDE RECORDS SUMMARY | 2025-03-25 14:30 | XMS_ITS | Encounter Summary ---
Author Organization [facility] Address [address] [place] [address] Care Team Providers Care Cnc Operator Programmer Name Role Phone Nader Fields MD Primary Care Provider [phone] Reason for Visit * Reason Comments New Patient Encounter Details Date Type Department Care Team ([facility] st Contact Info) Description 03/25/2025 2:30 PM EDT Office Visit Pav CC Head, Neck & Respiratory [address] [facility], 2nd [place] [address] Jessie Hi MD 800 [facility] [address] [place] [address] Abnormal finding of diagnostic imaging (Primary Dx); [...] Not at all 03/25/2025 2:39 PM EDT Hairtha Newton Poor appetite or overeating Not at [...] pleasure of seeing Mr. Preet Montoya in [facility] at the [facility]. As you know, Mr. Preet Montoya is [...] the mornings. While in the ER at [facility], he underwent CT which demonstrating hypopharyngeal thickening. He is referred here for direct visualization. 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 He also had [...] answered. Follow up PRN. Jessie Hi MD Human Factors Advisor Lead Division of Head & Neck Surgery [facility] [1] Allergies Allergen Reactions Tetanus Toxoids Itching documented in this encounter Plan of Treatment Upcoming Encounters Date Type Department Care Team (Late st Contact Info) Description 06/18/2025 12:40 PM EDT Office Visit Medical Office Building Surgery Spine & Joint [address] [facility], [address] [place] [address] Leon Anne MD [address] [place] [address] 07/31/2025 12:20 PM EST Office Visit [facility] [address] [facility] [address] [place] [address] Saroj Anderson MD [address] [place] [address] documented as of this encounter [...] documented as of this encounter Care Teams Cnc Operator Programmer Relationship Specialty Start Date End Date Nader Fields MD [address] [place] [address] PCP - General 06/16/24 documented as of this encounter
--- OUTSIDE RECORDS SUMMARY | 2025-04-09 10:21 | XMS_ITS ---
Author Name Auto Generated, Auto Generated Organization [facility] Address [address] [place] [address] Phone [phone] Care Team Providers Care Talkback Host Name Role Phone Roberto Presley Unavailable [phone] Functional Status No Results Mental Status No Results Allergies and Intolerances Name Onset Date Reaction Severity Tetanus Toxoid (Allergy) SunFebruary 12 16:27:00 EDT 2024 Encounters Program Name Primary Diagnosis Admission Date/Time Dis charge Date/Time null SunFebruary 06 20:00:00 EDT 2024 Medications Medication Directions Start Date End Date gabapentin 100 mg capsule 1 Capsule Oral 3 Times Daily Indication: neuropathy Sat February 07 00:00:00 EDT 2024 Problems No Known Problems Social History Social History Observation Description Date Smoking Status Never smoked Sat February 07 00:00 :00 EDT 2024 Sex Male SunSep 04 00:00 :00 EST 1950 Reason for Referral
--- OUTSIDE RECORDS SUMMARY | 2025-04-09 10:21 | XMS_ITS ---
Author Name Auto Generated, Auto Generated Organization [facility] Address [address] [place] [address] Phone [phone] Care Team Providers Care Shoe Maker Name Role Phone Roberto Presley Unavailable [phone] Functional Status No Results Mental Status No [...]
--- OUTSIDE RECORDS SUMMARY | 2025-04-09 10:25 | XMS_ITS | Encounter Summary ---
Author Organization [facility] Address [address] [place] [address] Care Team Providers Care Intervention Analyst Name Role Phone Nader Fields MD Primary Care Provider [phone] Reason for Visit * Reason Onset Date Comments HCN - Patient Message 03/26/2025 Encounter Details Date Type Department Care Team (Late st Contact Info) Description 03/26/2025 Telephone [facility] [address], 3rd [place] [address] Jessie Hi MD [address] [place] [address] [place] [address] HCN - Patient Message Social History Tobacco [...] encounter Miscellaneous Notes * Telephone Encounter - Honey Bernal RN - 04/06/2025 9:41 AM EDT Notes from 03/25 faxed to # provided * Telephone Encounter - Honey Bernal RN - 03/31/2025 2:59 PM EDT Returned call. LVM that no MD note yet from encounter, will fax when completed to number provided. * Telephone Encounter - Kin Ann - 03/26/2025 12:42 PM EDT Patient Phone Message Reason for Call: Rayne with [employer] requesting pt's office note from 03/25 visit. FAX - [phone] Best contact number and optimal time of day to reach caller: [phone] - anytime Note: Please do not reply to this message. Follow-up communication and further actions as a result of this message need to be communicated with the patient directly, if the patient is not active onMyChart. If the patient is active on MyChart, they will receive notification of the communication/outcome via [employer]. documented in this encounter Plan of Treatment Upcoming Encounters Date Type Department Care Team (Late st Contact Info) Description 06/18/2025 12:40 PM EDT Office Visit Medical Office Building Surgery Spine & Joint [address] [facility], [address] [place] [address] Leon Anne MD [address] [facility] [address] [place] [address] 07/31/2025 12:20 PM EST Office Visit [facility] [address] [place] [address] Saroj Anderson MD [address] [place] [address] documented as of this encounter [...] documented as of this encounter Care Teams Intervention Analyst Relationship Specialty Start Date End Date Nader Fields MD [address] [place] [address] [address] [place] [address] PCP - General 06/16/24 documented as of this encounter
--- OUTSIDE RECORDS SUMMARY | 2025-04-09 10:25 | XMS_ITS | Encounter Summary ---
Author Organization [facility] Address [address] [place] [address] Care Team Providers Care Brine Process Operator Name Role Phone Nader Fields MD Primary Care Provider [phone] Reason for Visit * Reason Onset Date Comments HCN - Patient Message 03/13/2025 Encounter Details Date Type Department Care Team ([facility] st Contact Info) Description 03/13/2025 Telephone Medical Office Building Surgery Spine & Joint [address] [facility], [address] [place] [address] Leon Anne MD [address] [facility] [address] [place] [address] HCN - Patient Message Social [...] any time in the past 12 m [facility], were you homeless or living [...] 03/17/2025 11:07 AM EDT Called Marcel with [employer] . Left voicemail giving him an update [...] on Omid patient. Best contact number: Other: [phone] Optimal time of day to reach caller: [...] Surgery Spine & Joint [address] [facility], [address] [place] [address] Leon Anne MD [address] [place] [address] 07/31/2025 12:20 PM EST Office Visit [facility] [address] [facility] [address] [place] [address] Saroj Anderson MD [address] [place] [address] documented as of this encounter Goals [...] documented as of this encounter Care Teams Brine Process Operator Relationship Specialty Start Date End Date Nader Fields MD [address] [facility] [address] [place] [address] PCP - General 06/16/24 documented as of this encounter
--- OUTSIDE RECORDS SUMMARY | 2025-04-09 10:25 | XMS_ITS | Encounter Summary ---
Author Organization [facility] Address [address] [place] [address] Care Team Providers Care Baggage Agent Name Role Phone Nader Fields MD Primary Care Provider [phone] Encounter Details Date Type Department Care Team (Late st Contact Info) Description 03/18/2025 Orders Only External Location [address] [place] [address] Provider, External Social History Tobacco Use Types [...] any time in the past 12 m [facility], were you homeless or living in a residential (including now)? No 02/03/2025 Utilities Answer Date Recorded In the past 12 months has th e electric, gas, oil, or water [employer] threatened to shut off services in your [...] [address] [facility], [address] [place] [address] Leon Anne MD [address] [facility] [address] [place] [address] 07/31/2025 12:20 PM EST Office Visit [facility] [address] [place] [address] Saroj Anderson MD [address] [place] [address] documented as of this encounter Goals [...] documented as of this encounter Care Teams Baggage Agent Relationship Specialty Start Date End Date Nader Fields MD [address] [place] [address] [address] [place] [address] PCP - General 06/16/24 documented as of this encounter
--- OUTSIDE RECORDS SUMMARY | 2025-04-09 10:25 | XMS_ITS | Encounter Summary ---
Author Organization [facility] Address [address] [place] [address] Care Team Providers Care Tank Calibrator Name Role Phone Nader Fields MD Primary Care Provider [phone] Encounter Details Date Type Department Care Team (Late Contact Info) Description 04/03/2024 Orders Only External Location [address] [place] [address] Kevin Zheng, DO [address] [place] [address] [...] Building Surgery Spine & Joint [address] [facility], [address] [place] [address] Leon Anne MD [address] [place] [address] 07/31/2025 12:20 PM EST Office Visit [facility] [address] [place] [address] Saroj Anderson MD [address] [place] [address] documented as of this encounter Procedures Procedure [...] documented as of this encounter Care Teams Tank Calibrator Relationship Specialty Start Date End Date Nader Fields MD [address] [facility] [address] [place] [address] PCP - General 06/16/24 documented as of this encounter
--- OUTSIDE RECORDS SUMMARY | 2025-04-09 10:25 | XMS_ITS | Encounter Summary ---
Author Organization [facility] Address [address] [place] [address] Care Team Providers Care Rug Receiving Clerk Name Role Phone Nader Fields MD Primary Care Provider Encounter Details Date Type Department Care Team (Late Contact Info) Description 04/03/2024 Orders Only External Location [address] [place] [address] Kevin Zheng, DO [address] [place] [address] [...] & Joint [address] [facility], [address] [place] [address] Leon Anne MD [address] [place] [address] 07/31/2025 12:20 PM EST Office Visit [facility] [address] [place] [address] Saroj Anderson MD [address] [place] [address] documented as of this encounter Procedures Procedure [...] documented as of this encounter Care Teams Rug Receiving Clerk Relationship Specialty Start Date End Date Naedr Fields MD [address] [facility] [address] [place] [address] PCP - General 06/16/24 documented as of this encounter
--- OUTSIDE RECORDS SUMMARY | 2025-04-09 10:25 | XMS_ITS | Encounter Summary ---
Author Organization [facility] Address [address] [place] [address] Care Team Providers Care Information Architect Name Role Phone Nader Fields MD Primary Care Provider [phone] Encounter Details Date Type Department Care Team [...] any time in the past 12 m [facility], were you homeless or living in a care home (including now)? No 02/03/2025 Utilities Answer Date Recorded In the past 12 months has th e [employer], gas, oil, or water [employer] threatened to shut off services in your [...] [address] [facility], [address] [place] [address] Leon Anne MD [address] [facility] [address] [place] [address] 07/31/2025 12:20 PM EST Office Visit [facility] [address] [place] [address] Saroj Anderson MD [address] [place] [address] documented as of this encounter Goals [...] documented as of this encounter Care Teams Information Architect Relationship Specialty Start Date End Date Nader Fields MD [address] [place] [address] [address] [place] [address] PCP - General 06/16/24 documented as of this encounter
--- OUTSIDE RECORDS SUMMARY | 2025-04-09 10:25 | XMS_ITS | Encounter Summary ---
Author Organization [facility] Address [address] [place] [address] Care Team Providers Care Road Freight Brake Coupler Name Role Phone Nader Fields MD Primary Care Provider [phone] Encounter Details Date Type Department Care Team (Late st Contact Info) Description 03/18/2025 Orders Only External Location [address] [place] [address] Provider, External Social History Tobacco Use Types [...] any time in the past 12 m [facility], were you homeless or living in a nursing home (including now)? No 02/03/2025 Utilities Answer Date Recorded In the past 12 months has th e electric, gas, oil, or water [employer] threatened to shut off services in your [...] Building Surgery Spine & Joint [address] [facility], [address] [place] [address] Leon Anne MD [address] [facility] [address] [place] [address] 07/31/2025 12:20 PM EST Office Visit [facility] [address] [place] [address] Saroj Anderson MD [address] [place] [address] documented as of this encounter Goals [...] documented as of this encounter Care Teams Road Freight Brake Coupler Relationship Specialty Start Date End Date Nader Fields MD [address] [place] [address] [address] [place] [address] PCP - General 06/16/24 documented as of this encounter
--- OUTSIDE RECORDS SUMMARY | 2025-04-09 10:25 | XMS_ITS | Encounter Summary ---
Author Organization [facility] Address [address] [place] [address] Care Team Providers Care Beef Cattle Farm Worker Name Role Phone Nader Fields MD Primary Care Provider [phone] Encounter Details Date Type Department Care Team (Late st Contact Info) Description 03/18/2025 Orders Only External Location [address] [place] [address] Provider, External Social History Tobacco Use Types [...] any time in the past 12 m [facility], were you homeless or living in a chcf (including now)? No 02/03/2025 Utilities Answer Date Recorded In the past 12 months has th e electric, gas, oil, or water [employer] threatened to shut off services in your [...] Building Surgery Spine & Joint [address] [facility], [address] [place] [address] Leon Anne MD [address] [facility] [address] [place] [address] 07/31/2025 12:20 PM EST Office Visit [facility] [address] [place] [address] Saroj Anderson MD [address] [place] [address] documented as of this encounter Goals [...] documented as of this encounter Care Teams Beef Cattle Farm Worker Relationship Specialty Start Date End Date Nader Fields MD [address] [place] [address] [address] [place] [address] PCP - General 06/16/24 documented as of this encounter
--- OUTSIDE RECORDS SUMMARY | 2025-04-09 10:25 | XMS_ITS | Encounter Summary ---
Author Organization [facility] Address [address] [place] [address] Care Team Providers Care Spring Repairer Helper Hand Name Role Phone Nader Fields MD Primary Care Provider [phone] Encounter Details Date Type Department Care Team [...] any time in the past 12 m [facility], were you homeless or living in a long term (including now)? No 02/03/2025 Utilities Answer Date Recorded In the past 12 months has th e [employer], gas, oil, or water [employer] threatened to shut off services in your [...] Building Surgery Spine & Joint [address] [facility], [address] [place] [address] Leon Anne MD [address] [facility] [address] [place] [address] 07/31/2025 12:20 PM EST Office Visit [facility] [address] [place] [address] Saroj Anderson MD [address] [place] [address] documented as of this encounter Goals [...] documented as of this encounter Care Teams Spring Repairer Helper Hand Relationship Specialty Start Date End Date Nader Fields MD [address] [place] [address] [address] [place] [address] PCP - General 06/16/24 documented as of this encounter
--- OUTSIDE RECORDS SUMMARY | 2025-04-09 10:25 | XMS_ITS | Encounter Summary ---
Author Organization [facility] Address [address] [place] [address] Care Team Providers Care Supply Chain Specialist Name Role Phone Nader Fields MD Primary Care Provider [phone] Reason for Visit * Reason Onset Date Comments HCN - Patient Message 03/09/2025 Encounter Details Date Type Department Care Team ([facility] st Contact Info) Description 03/09/2025 Telephone Medical Office Building Surgery Spine & Joint [address] [facility], [address] [place] [address] Leon Anne MD [address] [facility] 201 [place] [address] HCN - Patient Message Social [...] any time in the past 12 m [facility], were you homeless or living [...] Reason for Call: [facility] and needs an order for in home PT. She is asking that the clinic reach out to the pt. Best contact number: [phone] (mobile) Optimal time of day to reach caller: ANYTIME Additional comments/information from caller: None Note: Please do not reply to this message. Follow-up communication and further actions as a result of this message need to be communicated with the patient directly, if the patient is not active onMyChart. If the patient is active on MyChart, they will receive notification of the communication/outcome via [employer]. documented in this encounter Plan of Treatment Upcoming Encounters Date Type Department Care Team (Late st Contact Info) Description 06/18/2025 12:40 PM EDT Office Visit Medical Office Building Surgery Spine & Joint [address] [facility], [address] [place] [address] Leon Anne MD [address] [facility] 201 [place] [address] 07/31/2025 12:20 PM EST Office Visit [facility] [address] [place] [address] Saroj Anderson MD [address] [place] [address] documented as of this encounter [...] documented as of this encounter Care Teams Supply Chain Specialist Relationship Specialty Start Date End Date Nader Fields MD [address] [place] [address] [address] [place] [address] PCP - General 06/16/24 documented as of this encounter
--- OUTSIDE RECORDS SUMMARY | 2025-04-09 10:25 | XMS_ITS | Encounter Summary ---
Author Organization [facility] Address [address] [place] [address] Care Team Providers Care Double Bass Player Name Role Phone Nader Fields MD Primary Care Provider [phone] Reason for Referral * Home Health (Routine) - Authorized Specialty Diagnoses / Procedures Referred By Jean post Referred To Contact Home Health Services / Orthopaedic Surgery Diagnoses S/P total knee arthroplasty, right Leon Anne MD [address] [employer] [facility] [address] [place] [address] Phone: tel: fax: Referral ID Status Reason Start Date Expiration Date Visits Requested Visits Authorized [id number] Authorized Specialty Services Required 03/09/2025 09/08/2026 [id number] Encounter Details Date Type Department Care Team (Late st Contact Info) Description 03/09/2025 Orders Only Medical Office Building Surgery Spine & Joint [address] [place] [address] Leon Anne MD [address] [facility] [address] [place] [address] S/P total knee arthroplasty, right [...] were you homeless or living in a snf (including now)? No 02/03/2025 Utilities Answer Date [...] [address] [facility], [address] [place] [address] Leon Anne MD [address] [place] [address] 07/31/2025 12:20 PM EST Office Visit [facility] [address] [facility] [address] [place] [address] Saroj Anderson MD [address] [place] [address] Scheduled Referrals Name Type Priority [...] documented as of this encounter Care Teams Double Bass Player Relationship Specialty Start Date End Date Nader Fields MD [address] [place] [address] PCP - General 06/16/24 documented as of this encounter
--- OUTSIDE RECORDS SUMMARY | 2025-04-09 10:25 | XMS_ITS | Encounter Summary ---
Author Organization [facility] Address [address] [place] [address] Care Team Providers Care Bulk Mail Technician Name Role Phone Nader Fields MD Primary Care Provider [phone] Encounter Details Date Type Department Care Team ([facility] st Contact Info) Description 03/16/2025 Orders Only Medical Office Building Surgery Spine & Joint [address] [facility], [address] [place] [address] Leon Anne MD [address] [place] [address] Social History Tobacco Use Types [...] any time in the past 12 m [facility], were you homeless or living in [...] Joint [address] , [address] [place] [address] Leon Anne MD [address] [facility] [address] [place] [address] 07/31/2025 12:20 PM EST Office Visit [facility] [address] [place] [phone] Saroj Anderson MD [address] [place] [address] documented as of this encounter [...] documented as of this encounter Care Teams Bulk Mail Technician Relationship Specialty Start Date End Date Nader Fields MD [address] [facility] [address] [place] [address] PCP - General 06/16/24 documented as of this encounter
--- OUTSIDE RECORDS SUMMARY | 2025-04-09 10:25 | XMS_ITS | Encounter Summary ---
Author Organization [facility] Address [address] [place] [address] Care Team Providers Care Wire Coating Operator Metal Name Role Phone Nader Fields MD Primary Care Provider [phone] Reason for Referral * Consultation (Urgent) - Authorized Specialty Diagnoses / Procedures Referred By Jean post Referred To Contact Gastroenterology Diagnoses Abnormal finding of diagnostic imaging Dysphonia Jessie Hi MD [address] [facility] [address] [address] Phone: tel: fax: [place] [facility] [address] [place] [address] Phone: tel: fax: Referral ID Status Reason Start Date Expiration Date Visits Requested Visits Authorized [id number] Authorized Specialty Services Required 04/06/2025 10/06/2026 1 1 Scheduling Instructions [id number] to discuss retroperitoneal lymphadenopathy on recent scans Encounter Details Date Type Department Care Team (Late st Contact Info) Description 04/06/2025 Orders Only [facility] Head[facility] Neck & Respiratory [address] [facility], [address]nd [place] [address] Jessie Hi MD [address] [facility] [address] [place] [address] Abnormal finding of diagnostic imaging (Primary Dx); Dysphonia Social History Tobacco Use Types Packs/Day Years [...] were you homeless or living in a prison (including now)? No 02/03/2025 Utilities Answer Date Recorded In the past 12 months has e electric, gas, oil, or water company [...] Joint [address], [address] [place] [address] Leon Anne MD [address] [place] [address] 07/31/2025 12:20 PM EST Office Visit [facility] [address] [place] [address] Saroj Anderson MD [address] [place] [address] Scheduled Referrals Name Type Priority Associated Diagnoses Order Schedule Ambulatory referral to Gastroenterology Outpatient Referral Routine Abnormal finding of diagnostic imaging Dysphonia Expected: 04/06/2025 (Approximate), Expires: 10/08/2026 documented as of this encounter Goals Goal Patient Goal Type Associated Problems Recent Progress Patient-Stated? Author Autogenerat ed Goal Care Plan Autogenerated Problem No Kallie Villa documented as of this encounter Visit Diagnoses Diagnosis Abnormal finding of diagnostic imaging- Primary Dysphonia documented in this encounter Additional Health Concerns [...] documented as of this encounter Care Teams Wire Coating Operator Metal Relationship Specialty Start Date End Date Nader Fields MD [address] [place] [id number] PCP - General 06/16/24 documented as of this encounter
--- OUTSIDE RECORDS SUMMARY | 2025-04-09 10:26 | XMS_ITS | Encounter Summary ---
Author Organization [facility] Address [address] [place] [address] Care Team Providers Care Registered Nurse Bone Marrow Transplant Name Role Phone Nader Fields MD Primary Care Provider [phone] Encounter Details Date Type Department Care Team (Latest Contact Info) Description 03/25/2025 Travel Social History Tobacco Use Types Packs/Day [...] the past 12 months has th e [employer], gas, oil, or water [employer] threatened to shut off services in your home? No 02/03/2025 Sex and Gender Information Value Date Recorded Sex Assigned at Not on file Legal Sex Male 10:03 AM EDT Gender Identity Not on file Sexual Orientation Not on file documented as of this encounter Functional Status * Over the past 2 weeks, how often have you been bothered by any of the following problems? Question Answer Date of Assessment Author Little interest or pleasure in doing things Not at all 03/25/2025 2:39 PM Haritha Oliveira Feeling down, depressed, or hopeless Several days 03/25/2025 2:39 PM JOSET Haritha Newton Patient Health Questionnaire-2 Score 1 03/25/2025 2:39 PM EDT Denys Newton * Question Answer Date of Assessment Author Trouble falling or staying asleep, or sleeping too much Not at all 03/25/2025 2:39 PM JOSET Haritha Newton Feeling tired or having wayne le energy Not at all 03/25/2025 2:39 PM JOSET Haritha Newton Poor appetite or overeating Not at all 03/25/2025 2: 39 PM EDT Haritha Newton Trouble concentrating on things, such as reading the newspaper or watching television Not at all 03/25/2025 2:39 PM EDT Haritha Newton Moving or speaking so slowly [...] all 03/25/2025 2:39 PM EDT Humera Newton documented as of this encounter Plan of Treatment Upcoming Encounters Date Type Department Care Team (Late st Contact Info) Description 06/18/2025 12:40 PM EDT Office Visit Medical Office Building Surgery Spine & Joint [address], [address] [place] [address] Leon Anne MD [address] [place] [address] 07/31/2025 12:20 PM EST Office Visit [facility] [address] [place] [address] Saroj Anderson MD [address] [place] [address] documented as of this encounter [...] documented as of this encounter Care Teams Registered Nurse Bone Marrow Transplant Relationship Specialty Start Date End Date Nader Fields MD [address] [facility] [address] [place] [id number] PCP - General 06/16/24 documented as of this encounter
--- OUTSIDE RECORDS SUMMARY | 2025-04-09 10:26 | XMS_ITS | Clinical Summary ---
Author Organization [facility] Address [address] [place] [address] Care Team Providers Care Engagement Executive Name Role Phone Nader Fields MD Primary Care Provider [phone] Allergies Active Allergy Reactions Criticality Noted Date [...] tablet by mouth daily. Active nystatin (Mycostatin) 762934 UNIT/GM powder Apply to skin folds twice [...] 6 hours as needed for pain. Under [place] law, monthly prescriptions (30 days) can be [...] by mouth nightly. 02/08/20 Active nystatin (Mycostatin) 258411 UNIT/GM powder Apply to skin folds twice daily. 60 g 02/08/20 Active gabapentin (Neurontin) 100 MG capsule Take 1 capsule by mouth 3 times a day for 3 days. 9 capsule 02/08/20 Active apixaban (Eliquis) 5 MG tablet Take 1 tablet by mouth 2 times a day. 120 tablet 03/16/20 25 025 Active aspirin 81 MG chewable tablet Chew 1 tablet daily. 02/09/20 25 025 apixaban (Eliquis) 5 MG tablet Take 2 tablets by mouth 2 times a day for 2 days, THEN 1 tablet 2 times a day. 02/08/20 25 025 Discontinu ed(Reorder ) Active Problems Problem Noted Date Diagnosed Date Laryngopharyngeal reflux 04/03/2025 Single subsegmental pulmonar y embolism without acute cor pulmonale 02/02/2025 Arthritis of right knee 01/28/2025 Class III obesity with body mass index (BMI) of 40.0 or higher 10/23/2024 Unilateral primary osteoarthritis, right knee Encounters * This document contains information received from the source organization and may not represent a complete record from that organization. Date Type Department Care Team Description 04/06/2025 Orders Only [facility] [address] [facility]nd [place] [address] Jessie Hi MD Abnormal finding of diagnostic imaging (Primary Dx); Dysphonia 03/26/2025 Telephone [facility] Otolaryngology [address], 3rd [place] [address] Jessie Hi MD HCN - Patient Message 03/25/2025 2:30 PM EDT Office Visit [facility] [address] [facility]nd [place] [address] Jessie Hi MD Abnormal finding of diagnostic imaging (Primary Dx); Laryngopharyngeal reflux 03/25/2025 Travel 03/18/2025 Orders Only External Location [address] [place] [id number] Provider, External 03/18/2025 Orders Only External Location [address] [place] [address] Provider, External 03/18/2025 Orders Only External Location [address] [place] [address] Provider, External 03/17/2025 11:30 AM EDT Office Visit Medical Office Building [facility] [address] [facility], [address] [place] [address] Leon Anne MD S/P total knee arthroplasty, right (Primary Dx) 03/17/2025 10:57 AM EDT - 03/17/2025 11:59 PM EDT Hospital Encounter Medical Office Building Radiology [address] [place] [address] S/P total knee arthroplasty, right Discharge Disposition: Home or Self Care 03/17/2025 Travel 03/16/2025 Orders Only Medical Office Building [facility] [address] [facility], [address] [place] [address] Leon Anne MD 03/13/2025 Telephone Medical Office Building [facility] [address] [facility], [address] [place] [address] Leon Anne MD HCN - Patient Message 03/09/2025 Orders Only Medical Office Building [facility] [address] [facility], [address] [place] [address] Leon Anne MD S/P total knee arthroplasty, right (Primary Dx) 03/09/2025 Telephone Medical Office Building [facility] [address] [facility], [address] [place] [address] Leon Anne MD HCN - Patient Message 02/12/2025 10:20 AM EDT Office Visit Medical Office Building [facility] [address] [facility], [address] [place] [address] Liya Soto PA S/P total knee arthroplasty, right (Primary Dx) 02/12/2025 Travel 02/05/2025 Travel 02/03/2025 Travel 02/02/2025 Travel 01/30/2025 Telephone Medical Office Building [facility] [address] [facility], [address] [place] [address] Leon Anne MD HCN - Patient Message 01/28/2025 11:40 AM EDT Anesthesia Event [facility] S Operating Room [address] [place] [address] Ja Alexandre CRNA Baker, Matthew L, MD 01/28/2025 11:00 AM EDT - 01/28/2025 1:30 PM EDT Surgery [facility] Operating Room [address] [place] [address] Leon Anne MD ARTHROPLASTY, KNEE, TOTAL, USING COMPUTER-ASSISTED NAVIGATION [93757 (CPT )] 01/28/2025 7:52 AM EDT - 01/29/2025 3:31 PM EDT Hospital Encounter [facility] Inpatient [address] [place] [address] Leon Anne MD Arthritis of right knee (Primary Dx) Discharge Disposition: Home or Self Care 01/28/2025 Travel 01/23/2025 Travel 01/23/2025 Telephone Medical Office Building [facility] [address] [facility], [address] [place] [address] Leon Anne MD 01/21/2025 Orders Only Medical Office Building [facility] [address] [facility], [address] [place] [address] Leon Anne MD Preop testing (Primary Dx) 01/20/2025 Orders Only Medical Office Building [facility] [address] [facility], [address] [place] [address] Leon Anne MD Preop testing (Primary Dx) from Last 3 Months Family History Medical [...] Mass Index 38.11 03/25/2025 2:40 PM EDT Plan of Treatment Upcoming Encounters Date Type Department Care Team (Late st Contact Info) Description 06/18/2025 12:40 PM EDT Office Visit Medical Office Building [facility] [address] , [address] [place] [address] Leon Anne MD [address] [facility] [address] [place] [address] 07/31/2025 12:20 PM EST Office Visit [facility] [address] [place] [address] Saroj Anderson MD [address] [place] [address] Health Maintenance Due Date Last Done Comments [facility]-Hepatitis C Screening 1950 [facility]-Medicare Annual Wellness (AWV) 1950 [facility]-Infant/Child/Adol SDOH Screenings 1950 Diabetes: Dental Exam 1960 [facility]-DTaP,Tdap,and Td Vaccines (1 - Tdap) 1969 [facility]-Pneumococcal Vaccine: 50+ Years (1 of 2 - PCV) 1969 CT Colonography 1995 Colonoscopy 1995 FIT-DNA 1995 FIT 1995 FOBT 1995 Sigmoidoscopy 1995 [facility]-Colorectal Cancer Screening 1995 [facility]-Zoster Vaccines (1 of 2) 2000 [facility]-RSV Vaccine: 60+ Years or (1 - Risk 60-74 years 1-dose series) 2010 NOT-NEMZO-82 Vaccine ( season) 2024 03/15/2022, 07/27/2021, 12/01/2020, Additional history exists [facility]-Influenza Vaccine (#1) 2025 [facility]-Diabetes: Hemoglobin A1C 06/16/2025 12/17/2024 [facility]- SDOH Screenings 08/06/2025 [facility]-Adult SDOH Screenings 08/06/2025 02/03/2025 [facility]-Depression Screening 03/25/2026 03/25/2025, 010 05/2025 [facility]-Obesity Intervention Completed 025, 02/12/2025, [...] [employer]ie [employer] Implanted Type Area Desktop Publishing Specialist Device Identifier Shelf Expiration Date Model / Serial / Lot Cement Palacos Mv - [id number] Implanted:Qty: 3 on 01/28/2025 by Leon Anne MD at [facility] Right: Knee [employer]-[id number] 03/23/2029 [id number] / / [id number] Chg Tibial [employer] Teacher R - [id number] Implanted:Qty: 1 on 01/28/2025 by Leon Anne MD at [facility] Right: Knee [employer]hew [employer]-[id number] 07/21/2034 [id number] / / [id number] Chg Patella Gii Oval Resurfaci - [id number] Implanted:Qty: 1 on 01/28/2025 by Leon Anne MD at [facility] Right: Knee [employer]-[id number] 10/11/2032 [id number] / / [id number] Jrny Ii Bcs Femoral Oxin Rt Sz - [id number] Implanted:Qty: 1 on 01/28/2025 by Leon Anne MD at [facility] Right: Knee [employer]-[id number] 07/06/2034 [id number] / / [id number] Jrny Ii Bcs Xlpe Art Isrt Sz 7 - [id number] Implanted:Qty: 1 on 01/28/2025 by Leon Anne MD at [facility] Right: Knee [employer]-[id number] 07/08/2032 [id number] / / [id number] Procedures Procedure Name Priority Date/Time Associated Diagnosis Comments CT THORACIC OUTSIDE IMAGES 03/18/2025 6:[address] THORACIC OUTSIDE IMAGES 03/18/2025 6:[address] NEURO OUTSIDE IMAGES 03/18/20 6:07 PM EDT XR KNEE RIGHT 1 [...] ANESTHESIA PLACEHOLDER Routine 01/28/2025 11:[address] AN ELECTIVE ENDOTRACHEAL AIRWAY Routine 01/28/2025 11:[address] TOTAL KNEE ARTHROPLASTY 01/28/2025 11:27 AM EDT Unilateral primary osteoarthritis, right knee POCT GLUCOSE METER UNSOLICITED RESULTS Routine 01/28/2025 8:35 AM EDT HEMOGLOBIN A1C Routine 12/17/2024 2:49 PM EDT Unilateral primary osteoarthritis, right knee Chronic pain of right knee from Last 3 Months or Most Recently Relevant to Health Maintenance Results * CT THORACIC OUTSIDE IMAGES (03/18/2025 [...] Stevenson MD on 03/17/2025 12:57 PM Liya Soto SC IM XR PROCEDURES Final Resul t * (ABNORMAL) [...] for testing. Comment 02/07/2025 12:22 PM EDT [facility] Cartridge Maker ID Mohinder Verdin 02/07/2025 12:22 PM EDT [facility] Device ID [id number] 02/07/2025 12:22 PM EDT [facility] Specimen Type POC Capillary 02/07/2025 12:22 PM EDT [facility] Blood Capillary blood specimen / Unknown 02/07/2025 12:19 PM EDT 02/07/2025 12:22 PM EDT Nithya Doyle DO LAB POINT OF CAR E TEST DOCKED DEVICE UNSOLICITED RESULTS Final Result [facility] [address] [place] [address] * XR Chest 1 View (02/05/2025 10:52 [...] MD on 02/05/2025 3:39 PM Nithya Doyle DO IMG XR PROCEDURES Final Result * (ABNORMAL) CBC and Differential (02/04/2025 3:14 AM EDT) Only the most recent of3 resultswithin the time period is included. WBC Count 7.98 3.70 - 10.30 10*3/uL LAB HEMATOLOGY METHOD 02/04/2025 3:32 AM EDT [facility] RBC Count 3.48(L) 4.60 - 6.10 10*6/uL LAB HEMATOLOGY METHOD 02/04/2025 3:32 AM EDT [facility] HGB 9.9(L) 13.7 - 17.5 g/dL LAB HEMATOLOGY METHOD 02/04/2025 3:32 AM EDT [facility] HCT 30.7(L) 40.0 - 51.0 % LAB HEMATOLOGY METHOD 02/04/2025 3:32 AM EDT [facility] Platelet Count 356 155 - 369 10*3/uL LAB HEMATOLOGY METHOD 02/04/2025 3:32 AM EDT [facility] MCV 88 79 - 98 fL LAB HEMATOLOGY METHOD 02/04/2025 3:32 AM EDT [facility] MCH 28.4 26.0 - 32.0 pg LAB HEMATOLOGY METHOD 02/04/2025 3:32 AM EDT [facility] MCHC 32.2 30.7 - 35.5 g/dL LAB HEMATOLOGY METHOD 02/04/2025 3:32 AM EDT [facility] RDW 13.0 11.5 - 14.5 % LAB HEMATOLOGY METHOD 02/04/2025 3:32 AM EDT [facility] MPV 8.7(L) 8.8 - 12.5 fL LAB HEMATOLOGY METHOD 02/04/2025 3:32 AM EDT [facility] nRBC 0.0 <=0.0 per 100 WBCs LAB HEMATOLOGY METHOD 02/04/2025 3:32 AM EDT [facility] Differential Type Automated LAB HEMATOLOGY METHOD 02/04/2025 3:32 AM EDT [facility] Neutrophils % 58 % LAB HEMATOLOGY METHOD 02/04/2025 3:32 AM EDT [facility] Lymphocytes % 20 % LAB HEMATOLOGY METHOD 02/04/2025 3:32 AM EDT [facility] Monocytes % 14 % LAB HEMATOLOGY METHOD 02/04/2025 3:32 AM EDT [facility] Eosinophils % 6 % LAB HEMATOLOGY METHOD 02/04/2025 3:32 AM EDT [facility] Basophils % 1 % LAB HEMATOLOGY METHOD 02/04/2025 3:32 AM EDT [facility] Immature Granulocytes % 1 % LAB HEMATOLOGY METHOD 02/04/2025 3:32 AM EDT [facility] Neutrophils Absolute 4.72 1.60 - 6.10 10*3/uL LAB HEMATOLOGY METHOD 02/04/2025 3:32 AM EDT [facility] Lymphocytes Absolute 1.57 1.20 - 3.90 10*3/uL LAB HEMATOLOGY METHOD 02/04/2025 3:32 AM EDT [facility] Monocytes Absolute 1.09(H) 0.30 - 0.90 10*3/uL LAB HEMATOLOGY METHOD 02/04/2025 3:32 AM EDT [facility] Eosinophils Absolute 0.51(H) 0.00 - 0.50 10*3/uL LAB HEMATOLOGY METHOD 02/04/2025 3:32 AM EDT [facility] Basophils Absolute 0.04 0.00 - 0.10 10*3/uL LAB HEMATOLOGY METHOD 02/04/2025 3:32 AM EDT [facility] Immature Granulocytes Absolute 0.05 0.00 - 0.06 10*3/uL LAB HEMATOLOGY METHOD 02/04/2025 3:32 AM EDT [facility] Blood Venous blood specimen / Unknown Venipuncture / Unknown 02/04/2025 3:14 AM EDT 02/04/2025 3:26 AM EDT Narrative [facility] - 02/04/2025 3:32 AM EDT Therapeutic decision making should be based on absolute values, rather than percentages. us Nithya Doyle DO LAB BLOOD ORDERABLES Fin al Result [facility] [address] [place] [address] * Magnesium (02/04/2025 3:14 AM EDT) Only the most recent of3 resultswithin the time period is included. Magnesium, Plasma 1.9 1.9 - 2.4 mg/dL 02/04/2025 9:14 AM EDT [facility] Blood Venous blood specimen / Unknown Venipuncture / Unknown 02/04/2025 3:14 AM EDT 02/04/2025 3:23 AM EDT us Nithya Doyle DO LAB BLOOD ORDERABLES Fin al Result [facility] [address] [place] [address] * (ABNORMAL) Basic metabolic panel (02/04/2025 3:14 AM EDT) Only the most recent of2 resultswithin the time period is included. Glucose, Plasma 138(H) 74 - 99 mg/dL 02/04/2025 3:52 AM EDT [facility] BUN, Plasma 32(H) 8 - 23 mg/dL 02/04/2025 3:52 AM EDT [facility] Creatinine, Plasma 1.42(H) 0.70 - 1.20 mg/dL 02/04/2025 3:52 AM EDT [facility] BUN/Creatinine Ratio 23 02/04/2025 3:52 AM EDT [facility] Sodium, Plasma 136 136 - 145 mmol/L 02/04/2025 3:52 AM EDT [facility] Potassium, Plasma 3.9 3.6 - 4.9 mmol/L 02/04/2025 3:52 AM EDT [facility] Chloride, Plasma 98 97 - 107 mmol/L 02/04/2025 3:52 AM EDT [facility] CO2, Plasma 25 22 - 29 mmol/L 02/04/2025 3:52 AM EDT [facility] Anion Gap 13 6 - 16 mmol/L 02/04/2025 3:52 AM EDT [facility] Total Calcium, Plasma 9.1 8.9 - 10.2 mg/dL 02/04/2025 3:52 AM EDT [facility] eGFRcr 51.9 mL/min/1.7 3m*2 02/04/2025 3:52 AM EDT [facility] Comment:Reported eGFRcr in m L/min/1.73m2 is based the CKD-EPI 2020 equation that does not use a race coefficient. Blood Venous blood specimen / Unknown Venipuncture / Unknown 02/04/2025 3:14 AM EDT 02/04/2025 3:23 AM EDT Nithya Doyle DO LAB BLOOD ORDERABLES Fin al Result [facility] [address] [place], [place] [id number] * XR Abdomen 1 View (02/03/2025 6:01 [...] at day 5 02/08/2025 12:01 PM EDT [facility] Blood Structure of left hand / Unknown Venipuncture / Unknown 02/03/2025 10:01 AM EDT 02/03/2025 10:16 AM EDT us Nithya Doyle DO LAB MICROBIOLOGY - GENER AL ORDERABLES Final Result [facility] [address] [place] [address] * VAS US Venous Duplex Lower Extremity [...] Stephanie Loo MD on 02/03/2025 10:24 AM us Nithya Yanira DO CV VASCULAR PROCEDURES F inal Result [...] is no recent study available for direct [id number] comparison. Left Ventricle The left ventricle is [...] is no recent study available for direct [id number]-[id number] comparison. Nithya Doyle DO CV ECHO PROCEDURES Final Result * Nasopharyngeal Respiratory Panel (02/03/2025 8:29 AM EDT) Nasopharyngeal Respiratory PCR Interpretation Not Detected for all analytes Not Detected for all analytes 02/03/2025 1:34 PM EDT [facility] Swab Nasopharyngeal structure / Unknown Non-blood Collection / Unknown 02/03/2025 8:29 AM EDT 02/03/2025 8:46 AM EDT Narrative [facility] - 02/03/2025 1:34 PM [...] Respiratory PCR Panel is performed using the Guavus instrument. This test is FDA approved for use with Nasopharyngeal swabs only. This test is used for clinical purposes. It should not be regarded as investigational or for research. The [facility] Clinical Microbiology Laboratory is certified under the Clinical Laboratory Improvement Amendments of 1988 (CLIA-88) as qualified to perform high complexity clinical laboratory testing. us Nithya Doyle DO LAB MICROBIOLOGY - GENER AL ORDERABLES Final Result [facility] [address] [place] [address] * (ABNORMAL) Blood gas panel, arterial (02/03/2025 8:05 AM EDT) pH, Arterial 7.45(H) 7.31 - 7.42 LAB HEMATOLOGY METHOD 02/03/2025 8:12 AM EDT [facility] pCO2, Arterial 43 32 - 45 mmHg LAB HEMATOLOGY METHOD 02/03/2025 8:12 AM EDT [facility] pO2, Arterial 64(L) >70 mmHg LAB HEMATOLOGY METHOD 02/03/2025 8:12 AM EDT [facility] SO2, Measured, Arterial 93(L) 94 - 98 % LAB HEMATOLOGY METHOD 02/03/2025 8:12 AM EDT [facility] Base Excess, Arterial 5.4(H) -2.0 - 3.0 mmol/L LAB HEMATOLOGY METHOD 02/03/2025 8:12 AM EDT [facility] Bicarbonate, Calculated, Arterial 30(H) 22 - 26 mmol/L LAB HEMATOLOGY METHOD 02/03/2025 8:12 AM EDT [facility] Hematocrit, Whole Blood 29.6(L) 40.0 - 51.0 % LAB HEMATOLOGY METHOD 02/03/2025 8:12 AM EDT [facility] Sodium, Whole Blood 139 136 - 145 mmol/L LAB HEMATOLOGY METHOD 02/03/2025 8:12 AM EDT [facility] Potassium, Whole Blood 3.6 3.6 - 4.9 mmol/L LAB HEMATOLOGY METHOD 02/03/2025 8:12 AM EDT [facility] Chloride, Whole Blood 97 97 - 107 mmol/L LAB HEMATOLOGY METHOD 02/03/2025 8:12 AM EDT [facility] Glucose, Whole Blood 135(H) 74 - 99 mg/dL LAB HEMATOLOGY METHOD 02/03/2025 8:12 AM EDT [facility] Ionized Calcium, Whole Blood 4.7 4.6 - 5.1 mg/dL LAB HEMATOLOGY METHOD 02/03/2025 8:12 AM EDT [facility] Lactate, Arterial, Whole Blood 0.7 0.5 - 1.6 mmol/L LAB HEMATOLOGY METHOD 02/03/2025 8:12 AM EDT [facility] Blood Arterial blood specimen / Unknown Arterial Puncture / Unknown 02/03/2025 8:05 AM EDT 02/03/2025 8:10 AM EDT us Nithya Doyle DO LAB BLOOD ORDERABLES Fin al Result [facility] [address] [place] [address] * (ABNORMAL) Comprehensive metabolic panel (02/03/2025 3:46 AM EDT) Only the most recent of2 resultswithin the time period is included. Glucose, Plasma 133(H) 74 - 99 mg/dL 02/03/2025 4:26 AM EDT [facility] BUN, Plasma 33(H) 8 - 23 mg/dL 02/03/2025 4:26 AM EDT [facility] Creatinine, Plasma 1.46(H) 0.70 - 1.20 mg/dL 02/03/2025 4:26 AM EDT [facility] BUN/Creatinine Ratio 23 02/03/2025 4:26 AM EDT [facility] Sodium, Plasma 134(L) 136 - 145 mmol/L 02/03/2025 4:26 AM EDT [facility] Potassium, Plasma 3.7 3.6 - 4.9 mmol/L 02/03/2025 4:26 AM EDT [facility] Chloride, Plasma 96(L) 97 - 107 mmol/L 02/03/2025 4:26 AM EDT [facility] CO2, Plasma 25 22 - 29 mmol/L 02/03/2025 4:26 AM EDT [facility] Anion Gap 13 6 - 16 mmol/L 02/03/2025 4:26 AM EDT [facility] Total Calcium, Plasma 9.0 8.9 - 10.2 mg/dL 02/03/2025 4:26 AM EDT [facility] Total Protein 7.1 6.3 - 7.9 g/dL 02/03/2025 4:26 AM EDT [facility] Albumin, Plasma 3.2(L) 3.5 - 5.2 g/dL 02/03/2025 4:26 AM EDT [facility] AST, Plasma 22 10 - 50 U/L 02/03/2025 4:26 AM EDT [facility] ALT, Plasma <5(L) 10 - 50 U/L 02/03/2025 4:26 AM EDT [facility] Alkaline Phosphatase, Plasma 70 40 - 115 U/L 02/03/2025 4:26 AM EDT [facility] Total Bilirubin, Plasma 0.3 0.2 - 1.1 mg/dL 02/03/2025 4:26 AM EDT [facility] eGFRcr 50.2 mL/min/1.7 3m*2 02/03/2025 4:26 AM EDT [facility] Comment:Reported eGFRcr in m L/min/1.73m2 is based the CKD-EPI 2020 equation that does not use a race coefficient. Blood Venous blood specimen / Unknown Venipuncture / Unknown 02/03/2025 3:46 AM EDT 02/03/2025 3:59 AM EDT us Nithya Doyle DO LAB BLOOD ORDERABLES Fin al Result Performing Organization Address City/State/RUST Co de Phone Number [facility] [address] [place] [address] * CT Angio Pulmonary Embolism (02/02/2025 5:37 [...] Antonieta Claudio MD on 02/02/2025 6:29 PM us Alessio CORONA [facility] PROCEDURES Final Resul t * (ABNORMAL) Troponin T, High Sensitivity, 2 Hour, Plasma (02/02/2025 4:18 PM EDT) Troponin T, High Sensitivity, 2 Hour 21(H) <19 ng/L 02/02/2025 4:52 PM EDT [facility] Troponin Delta 3 <10 ng/L 02/02/2025 4:52 PM EDT [facility] Troponin Delta Interpretation Not Significant 02/02/2025 4:52 PM EDT [facility] Comment:Not Significant. No acute change in troponin observed between the baseline and 2 hour samples. Blood Venous blood specimen / Unknown Venipuncture / Unknown 02/02/2025 4:18 PM EDT 02/02/2025 4:28 PM EDT Alessioelsy Barahona PA LAB BLOOD ORDERABLES Final Re sult Performing Organization Address City/[facility]/ZIP Co de Phone Number [facility] [address] [place] [address] * N-Terminal Probnp (02/02/2025 4:18 PM EDT) N-Terminal, PROBNP, Plasma 252 0 - 899 pg/mL 02/02/2025 6:58 PM EDT [facility] Blood Venous blood specimen / Unknown Venipuncture / Unknown 02/02/2025 4:18 PM EDT 02/02/2025 4:28 PM EDT Nithya Doyle DO LAB BLOOD ORDERABLES Fin al Result Performing Organization Address City/[facility]/RUST Co de Phone Number [facility] [address] [place] [address] * EKG now - STAT (adult) (02/02/2025 2:10 PM EDT) EKG DIAGNOSIS CLASS Abnormal MUSE ECG Ventricular Rate 87 BPM MUSE ECG Atrial Rate [address] Interval 244 ms MUSE ECG QRSD Interval 112 ms MUSE ECG QT Interval 364 ms MUSE ECG QTC Interval 438 ms MUSE ECG P Parks 18 degrees MUSE ECG R Parks 27 degrees MUSE ECG T Wave Parks -6 degrees MUSE ECG Diagnosis Sinus rhythm with 1st degree AV block MUSE ECG Diagnosis Incomplete right bundle branch block MUSE ECG Diagnosis Abnormal ECG MUSE ECG Diagnosis MUSE ECG Diagnosis MUSE ECG Diagnosis Confirmed by Dakota Tracey ([id number]) on 02/02/2025 3:30:48 PM MUSE ECG 02/02/2025 2:10 PM EDT 02/02/2025 3:30 PM EDT Alessio Da Barahona PA ECG ORDERABLES Final Result MUSE ECG * (ABNORMAL) Troponin now and 120 min (02/02/2025 2:10 PM EDT) Troponin T, High Sensitivity, 0 Hour 24(H) <19 ng/L 02/02/2025 2:54 PM EDT [facility] Blood Venous blood specimen / Unknown Venipuncture / Unknown 02/02/2025 2:10 PM EDT 02/02/2025 2:34 PM EDT Alessio Da Barahona SC LAB BLOOD ORDERABLES Final Re sult Performing Organization Address City/[facility]/ZIP Co de Phone Number [facility] [address] [place] [phone] * (ABNORMAL) Bacterial ID Gram Positive (02/02/2025 2:10 PM EDT) Staphylococcus Result Detected( A) Not Detected 02/03/2025 7:22 AM EDT [facility] Comment:Assess if contaminan t or clinically relevant pathogen. Consider clinical stability and immune status of patient. Staphylococcus epidermidis Result Detected( A) Not Detected 02/03/2025 7:22 AM EDT [facility] Comment:Assess if contaminan t or clinically relevant pathogen. Consider clinical stability and immune status of patient. MECA Result Detected( A) Not Detected 02/03/2025 7:22 AM EDT [facility] Blood Venous blood specimen / Unknown Venipuncture / Unknown 02/02/2025 2:10 PM EDT 02/02/2025 2:33 PM EDT Narrative [facility] - 02/03/2025 7:22 AM [...] Not detected for all analytes tested. Alessio CORONA LAB MICROBIOLOGY - GENERAL OR DERABLES Final Result Performing Organization Address City/[facility]/ZIP Co de Phone Number [facility] [address] [place] [address] * (ABNORMAL) Sed rate, automated (02/02/2025 2:10 PM EDT) [facility] Sedimentation Rate 106(H) <20 mm/hr 2024 3:25 PM EDT [facility] Blood Venous blood specimen / Unknown Venipuncture / Unknown 02/02/2025 2:10 PM EDT 02/02/2025 2:34 PM EDT Alessio Da CORONA LAB BLOOD ORDERABLES Final Re sult [facility] [address] [place] [address] * (ABNORMAL) C-reactive protein (02/02/2025 2:10 PM EDT) [facility] CRP, Plasma 288.0(H) <=8.0 mg/L 02/02/2025 2:54 PM EDT [facility] Blood Venous blood specimen / Unknown Venipuncture / Unknown 02/02/2025 2:10 PM EDT 02/02/2025 2:34 PM EDT Narrative [facility] - 02/02/2025 2:54 PM EDT This CRP test is appropriate for assessment of infection, systemic inflammation and/or tissue injury. To assess cardiovascular disease risk order high sensitivity CRP (CRPH). us Alessio CORONA LAB BLOOD ORDERABLES Final Re sult [facility] [address] [place] [id number] * (ABNORMAL) CBC (01/29/2025 1:49 AM EDT) WBC Count 10.61(H) 3.70 - 10.30 10*3/uL LAB HEMATOLOGY METHOD 01/29/2025 3:20 AM EDT [facility] RBC Count 3.41(L) 4.60 - 6.10 10*6/uL LAB HEMATOLOGY METHOD 01/29/2025 3:20 AM EDT [facility] HGB 9.8(L) 13.7 - 17.5 g/dL LAB HEMATOLOGY METHOD 01/29/2025 3:20 AM EDT [facility] HCT 30.5(L) 40.0 - 51.0 % LAB HEMATOLOGY METHOD 01/29/2025 3:20 AM EDT [facility] Platelet Count 292 155 - 369 10*3/uL LAB HEMATOLOGY METHOD 01/29/2025 3:20 AM EDT [facility] MCV 89 79 - 98 fL LAB HEMATOLOGY METHOD 01/29/2025 3:20 AM EDT [facility] [facility] MCH 28.7 26.0 - 32.0 pg LAB HEMATOLOGY METHOD 01/29/2025 3:20 AM EDT [facility] MCHC 32.1 30.7 - 35.5 g/dL LAB HEMATOLOGY METHOD 01/29/2025 3:20 AM EDT [facility] RDW 12.9 11.5 - 14.5 % LAB HEMATOLOGY METHOD 01/29/2025 3:20 AM EDT [facility] MPV 8.8 8.8 - 12.5 fL LAB HEMATOLOGY METHOD 01/29/2025 3:20 AM EDT [facility] nRBC 0.0 <=0.0 per 100 WBCs LAB HEMATOLOGY METHOD 01/29/2025 3:20 AM EDT [facility] Blood Venous blood specimen / Unknown Venipuncture / Unknown 01/29/2025 1:49 AM EDT 01/29/2025 3:12 AM EDT Miranda Salamanca PERSONAL LINES ACCOUNT MANAGER LAB BLOOD ORDERABLES Final Re sult [facility] [address] [place] [address] * CT AN ELECTIVE ENDOTRACHEAL AIRWAY, PB ANESTHESIA PLACEHOLDER (01/28/2025 11:54 AM EDT) Narrative Ja Alexandre CRNA - 01/28/2025 11:54 AM EDT Ja Alexandre CRNA 01/28/2025 12:04 PM Airway Date/Time: 01/28/2025 11:54 AM Reason: elective Airway not difficult General Information and Staff Patient location during procedure: OR TENT FINISHER: Ja Alexandre CRNA Performed: TENT FINISHER Patient Condition Indications for airway management: anesthesia [...] 6.2(H) <5.7 % 12/17/2024 7:08 PM EDT [facility] Blood Venous blood specimen / Unknown Venipuncture / Unknown 12/17/2024 2:49 PM EDT 12/17/2024 2:49 PM EDT Narrative [facility] - 12/17/2024 7:08 PM EDT HA1C Interpretive Data: Diagnosis of Diabetes: Diabetic > or = 6.5% Pre-diabetic 5.7 to 6.4% Non-diabetic < or = 5.6% Glycemic Targets for Type I and Type II Diabetics: Non- Adults <7.0% Adults <6.0% Children and Adolescents <7.5% Source: [place] [employer]. Standards of medical care in diabetes,2017. Diabetes Care.2017:40 (suppl 1):S1-S135. HbA1c assay performed by an ion-exchange chromatography method that is certified traceable to the DCCT. 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
--- NOTE | 2025-04-09 10:30 | US_ITS ---
FINAL REPORT CLINICAL HISTORY: .HEMATURIA-- DIFF VOIDING FINDINGS: SCROTAL ULTRASOUND There is a small cystic area in the superior left testes measuring 3 mm. Typically, this type of abnormality benign but continued follow-up is recommended. Normal flow is demonstrated by Doppler exam. No significant fluid collections are present. Epididymal structures are unremarkable. There is a tiny left hydrocele. IMPRESSION: Small left testicular cyst, favor benign. Recommend 6-month follow-up. No evidence of testicular torsion or solid mass. Reviewed, Interpreted and Dictated by Aureliano Melton MD Transcribed by Nadia Velasquez Authenticated and [facility]
[2025-04-09] MEDS: IOPAMIDOL-370 (76%);100ML BOTTLE 75 ML IV (10:52)
[2025-04-09] MEDS: SODIUM CHLORIDE 0.9% 10ML SYR (RAD ONLY) 10 ML IV (10:52)
--- NOTE | 2025-04-09 11:00 | US_ITS ---
FINAL REPORT TECHNIQUE: Limited sonographic images of the bladder were obtained. CLINICAL HISTORY: Hematuria--- URINARY B;ADDER FINDINGS: The bladder is mildly distended. No bladder wall mass or obvious thickening is identified. The bladder volume filled is 446 mL. Postvoid volume is 382 mL. There is poor emptying of bladder with large postvoid residual. IMPRESSION: Poor bladder emptying with large postvoid residual may indicate bladder outlet obstruction. Reviewed, Interpreted and Dictated by Aureliano Melton MD Transcribed by Nadia Velasquez Authenticated and [facility]
--- NOTE | 2025-04-09 13:00 | CT_ITS ---
FINAL REPORT TECHNIQUE: Oral and IV contrast enhanced exam This study was performed with techniques to keep radiation doses as low as reasonably achievable, (ALARA). Individualized dose reduction techniques using automated exposure control or adjustment of mA and/or kV according to the patient''s size were employed. CLINICAL HISTORY: hematuria, w/o study done 03/18/25 COMPARISON: Report dated 03/18/2025 FINDINGS: Abdomen: No acute density is seen within the lung bases. The gallbladder is contracted. There are multiple bilateral renal cysts. There are no obstructive changes. The remaining abdominal organs are unremarkable. No bowel obstruction is present. There is no free air. No fluid collection is seen. There is mild preaortic adenopathy below the aorta of the renal vessels 21 x 10 mm. There is also mild retrocaval and left para-aortic adenopathy. Pelvis: There is a left periaortic lymph node at the level of the aortic bifurcation measuring 24 x 20 mm. Multiple left iliac chain lymph nodes are identified. Left iliac chain node on image 104 of series 2 measures up to 22 mm. Left external iliac adenopathy measures 35 x 15 mm. There are multiple left inguinal lymph nodes showing enlargement, largest measures 38 x 14 mm. There is minimal right inguinal and right external iliac adenopathy. The bladder and prostate are unremarkable. No bowel wall thickening is present. There is no free fluid. IMPRESSION: Adenopathy, greatest in the left pelvis with differential of lymphoproliferative disorder versus metastatic disease. Left inguinal lymph nodes are amenable to imaging guided needle biopsy. Reviewed, Interpreted and Dictated by Aureliano Melton MD Transcribed by Nadia Velasquez Authenticated and . [facility]
== END 2025-04-09 23:59 | disposition home or self-care (01) ==
LOC: RAD 10:20
PROVIDERS: PCP Internal Medicine; Visit Provider Urology
DX: N44.2 Benign cyst of testis (principal); R59.0 Localized enlarged lymph nodes; R39.198 Other difficulties with micturition; R31.9 Hematuria, unspecified; R35.1 Nocturia
CPT/HCPCS: 74177; 76857; 76870; Q9967

== ENCOUNTER 2025-04-22 14:20 | Outpatient (CLI) | payer MEDICARE, SELFPAY ==
--- OUTSIDE RECORDS SUMMARY | 2025-03-17 10:57 | XMS_ITS | Encounter Summary ---
Author Organization [facility] Address [address] [place] [address] Care Team Providers Care Elevator Constructor Electric Name Role Phone Nader Fields MD Primary Care Provider [phone] Encounter Details Date Type Department Care Team (Latest Contact Info) Description 03/17/2025 10:57 AM EDT - 03/17/2025 11:59 PM EDT Hospital Encounter Medical Office Building Radiology [address] [place] [address] S/P total knee arthroplasty, right [...] Answer Date Recorded Patient Health Questionnaire-2 Score 1 03/25/2025 Hunger Vital Sign Answer Date Recorded Within [...] time in the past 12 m [facility], were you homeless or living in a care home (including now)? No 02/03/2025 Utilities Answer Date Recorded In the past 12 months has th e [employer], gas, oil, or water company threatened to [...] 6 hours as needed for pain. Under [place] law, monthly prescriptions (30 days) can be [...] symptoms continue 1 each 01/29/2025 nystatin (Mycostatin) 435302 UNIT/GM powder Apply to skin folds twice daily 60 g 01/29/2025 nystatin (Mycostatin) 263540 UNIT/GM powder Apply to skin folds twice [...] Building Surgery Spine & Joint [address] [facility], [address] [place] [address] Leon Anne MD [address] [facility] [address] [place] [address] 07/31/2025 12:20 PM EST Office Visit [facility] [address] [place] [phone] Saroj Anderson MD [address] [place] [phone] documented as of this encounter Goals [...] documented as of this encounter Care Teams Elevator Constructor Electric Relationship Specialty Start Date End Date Nader Fields MD [address] [place] [address] [address] [place] [address] PCP - General 06/16/24 documented as of this encounter
--- OUTSIDE RECORDS SUMMARY | 2025-03-17 11:30 | XMS_ITS | Encounter Summary ---
Author Organization [facility] Address [address] [place] [address] Care Team Providers Care Script Coordinator Name Role Phone Nader Fields MD Primary Care Provider Reason for Visit * Reason Comments Post-op Encounter Details Date Type Department Care Team ([facility] st Contact Info) Description 03/17/2025 11:30 AM EDT Office Visit Medical Office Building Surgery Spine & Joint [address] [facility], [address] [place] [address] Leon Anne MD [address] [place] [address] S/P total knee arthroplasty, right [...] any time in the past 12 m [facility], were you homeless or living in a long-term (including now)? No 02/03/2025 Utilities Answer Date [...] Sign Reading Time Taken Comments Blood Pressure 72/51 03/17/2025 11:58 AM EDT Pulse 97 03/17/2025 11:58 AM EDT Temperature - - Respiratory Rate - - Oxygen Saturation 95% 03/17/2025 11:58 AM EDT Inhaled Oxygen Concentration - - Weight 136 kg (299 lb 13.2 oz) 03/17/2025 11:58 AM EDT Height 182.9 cm (6') 03/17/2025 11:58 AM EDT Body Mass Index 40.66 03/17/2025 11:58 AM EDT documented in this encounter Miscellaneous Notes * Progress Notes - Leon Anne MD - 03/17/2025 11:30 AM EDT 74-year-old returns following right total knee arthroplasty. At this point patient is now home. He is working with home health physical therapy. On exam incisions well healed. Range of motion is 5-110 degrees. He is neurovascular intact distally. Radiographs demonstrate implants are in good position. No signs of any loosening or subsidence. This point will have him continue with home health physical therapy. I will plan to see him back in 3 months' time. At that point we can further discuss proceeding with left total knee arthroplasty. documented in this encounter Plan of Treatment Upcoming Encounters Date Type Department Care Team (Late st Contact Info) Description 06/18/2025 12:40 PM EDT Office Visit Medical Office Building Surgery Spine & Joint [address] [facility], [address] [place] [address] Leon Anne MD [address] [facility] 201 [place] [address] 07/31/2025 12:20 PM EST Office Visit [facility] [address] [place] [address] Saroj Anderson MD [address] [place] [phone] documented as of this encounter Goals Goal Patient Goal Type Associated Problems Recent Progress Patient-Stated? Author Autogenerat ed Goal Care Plan Autogenerated Problem No Kallie Villa documented as of this encounter Visit Diagnoses Diagnosis S/P total knee arthroplasty, right- Primary documented in this encounter Additional Health Concerns [...] documented as of this encounter Care Teams Script Coordinator Relationship Specialty Start Date End Date Nader Fields MD [address] [place] [address] [address] [place] [address] PCP - General 06/16/24 documented as of this encounter
--- OUTSIDE RECORDS SUMMARY | 2025-03-25 14:30 | XMS_ITS | Encounter Summary ---
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 Name Role Phone Nader Fields MD Primary Care Provider [phone] Reason for Visit * Reason Comments New Patient Encounter Details Date Type Department Care Team ([facility] st Contact Info) Description 03/25/2025 2:30 PM EDT Office Visit Pav CC Head, Neck & Respiratory [address] [facility], 2nd [place] [address] Jessie Hi MD 800 [facility] [address]nd [place] [address] Abnormal finding of diagnostic imaging (Primary Dx); Laryngopharyngeal reflux Social History Tobacco Use Types Packs/Day Years [...] any time in the past 12 m [facility], were you homeless or living in a skilled nursing (including now)? No 02/03/2025 Utilities Answer Date [...] Sign Reading Time Taken Comments Blood Pressure 93/61 03/25/2025 4:28 PM EDT Pulse 105 03/25/2025 2:40 PM EDT Temperature 36.8 C (98.2 F) 03/25/2025 2:40 PM EDT Respiratory Rate 14 03/25/2025 2:40 PM EDT Oxygen Saturation 92% 03/25/2025 2:40 PM EDT Inhaled Oxygen Concentration - - Weight 127 kg (281 lb) 03/25/2025 2:40 PM EDT Height 182.9 cm (6') 03/25/2025 2:40 PM EDT Body Mass Index 38.11 03/25/2025 2:40 PM EDT documented in this encounter Functional Status * Over the past 2 weeks, how often have you been bothered by any of the following problems? Question Answer Date of Assessment Author Little interest or pleasure in doing things Not at all 03/25/2025 2:39 PM EDT Haritha Newton Feeling down, depressed, or hopeless Several days 03/25/2025 2:39 PM EDT Haritha Newton Patient Health Questionnaire-2 Score 1 03/25/2025 2:39 PM EDT Denys Newton * Question Answer Date of Assessment Author Trouble falling or staying asleep, or sleeping too much Not at all 03/25/2025 2:39 PM JOSET Haritha Newton Feeling tired or having wayne le energy Not at all 03/25/2025 2:39 PM EDT Haritha Newton Poor appetite or overeating Not at all 03/25/2025 2: 39 PM JOSET Haritha Newton Trouble concentrating on things, such as reading the newspaper or watching television Not at all 03/25/2025 2:39 PM JOSET Haritha Newton Moving or speaking so slowly that other people could have noticed? Or the opposite - being so fidgety or restless that you have been moving around a lot more than usual. Not at all 03/25/2025 2:39 PM EDT Haritha Newton Thoughts that you would be better off or hurting yourself in some way Not at all 03/25/2025 2:39 PM EDT Humera Newton T documented as of this encounter Miscellaneous Notes * Progress Notes - Jessie Hi MD - 03/25/2025 2:30 PM EDT Images from the original note were not included. I had the pleasure of seeing Mr. Preet Montoya in [facility] at the [facility]. As you know, Mr. Preet Montoya is a very pleasant 74 y.o. patient who was kindly sent to my clinic in consultation for evaluation and management of his incidental imaging finding of hypopharyngeal asymmetry in the context of hoarseness and dysphagia He endorses hoarseness and some globus since his intubation for a knee surgery in January at . He feels today that he can swallow reasonably well. He endorses a dry cough in the mornings. While in the ER at [facility], he underwent CT which demonstrating hypopharyngeal thickening. He is referred here for direct visualization. 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 He also had a CT Abdomen/Pelvis demonstrating retroperitoneal lymphadenopathy. Today, he has hypotension which is asymptomatic. He was given his blood pressure medications this AM at his facility where he resides. He presents with his . We provided him apple juice and waterand his BP improved. I do not have formal reads from his outside imaging. Oncology History No history exists. Radiographs: - CT scan of the neck: 03/18/25: . I independently reviewed the images and discussed them with the patient. I do not see any pathologycervical LAD or significant thickening of the hypopharynx. Allergies: Allergies[1] Past medical history: As in history of present illness Past surgical history: [] Family history: reviewed and noncontributory Social history: The patient has been smoking [] pack/day for [] years and has a [] pack/year history, does not drink or use any illicit drugs. PHYSICAL EXAMINATION: Visit Vitals BP 93/61 (BP Location: Right arm, Patient Position: Sitting, BP Cuff Size: Large adult) Pulse 105 Temp 36.8 ??C (98.2 ??F) (Oral) Ht 1.829 m (6') Wt 127 kg (281 lb) SpO2 92% BMI 38.11 kg/m?? General: He is a 74 y.o. patient, alert and oriented x3, in no acute distress, well nourished, welldeveloped. He is reclined in the exam chair. He ambulates by wheelchair. Psychiatric evaluation: Normal mood and affect, very pleasant and cooperative. Otoscopy: did not reveal any cerumen impaction. Tympanic membranes are normal without any middle ear effusions. Nasal cavity examination: Septum is midline. I did not see any pus or polyps. Oral cavity examination: The buccal mucosa, lips, gingiva, retromolar trigone, alveolar ridge, floor of mouth, tongue and palate unremarkable. Oropharynx: Tonsils are unremarkable bilaterally. Neck: soft and supple. I did not feel any enlarged lymphadenopathy. Eyes: Extraocular movements are intact bilaterally. PERRLA. Neurological examination: Cranial nerves II-XII are grossly intact. Skin of the neck and face: did not reveal any evidence of significant rashes or suspicious appearing nevi or other concerning lesions. Endocrine examination: I do not feel any thyroid nodules. No thyromegaly. Respiratory: chest is symmetrical, breathing comfortably without effort. PROCEDURE NOTE: Transnasal Fiberoptic Laryngoscopy PREOPERATIVE DIAGNOSIS: globus, abnormal imaging POSTOPERATIVE DIAGNOSIS: Same INDICATIONS: We were unable to obtain an adequate view with indirect laryngoscopy. PROCEDURE DESCRIPTION: Verbal consent was obtained and all questions regarding the procedure were answered. Under topical anesthesia (2% lidocaine and ephedrine), the flexible laryngoscope was introduced and the findings noted. Following this, the procedure was terminated. The patient tolerated theprocedure well without any apparent complications and was returned to ambulatory status to be followed as an outpatient. FINDINGS: The nasopharynx, oropharynx and hypopharynx were normal in appearance without suspicious masses or lesions. There is full mobility of bilateral true vocal folds without evidence of lesions or masses.The subglottis is widely patent. There is no pooling of secretions. Slight interarytenoid edema with scant bilious stain IMPRESSION: 1- laryngopharyngeal reflux RECOMMENDATIONS: I did not see any evidence of malignancy. 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 I recommend re-adding his PPI. We discussed conservative measure to manage LPR as well. I advised him his voice may improve with hydration and reflux control. If it does not he is welcometo contact us for a referral to Speech. Refer to Surgical Oncology to review RP lymphadenopathy. I advised them to talk with facility doctor about his BP meds. All questions answered. Follow up PRN. Jessie Hi MD Pre Press Manager Division of Head & Neck Surgery [facility] [1] Allergies Allergen Reactions Tetanus Toxoids Itching documented in this encounter Plan of Treatment Upcoming Encounters Date Type Department Care Team (Late st Contact Info) Description 06/18/2025 12:40 PM EDT Office Visit Medical Office Building Surgery Spine & Joint [address] [facility], [address] [place] [address] Leon Anne MD [address] [place] [address] 07/31/2025 12:20 PM EST Office Visit [facility] [address] [facility] [address] [place] [address] Saroj Anderson MD [address] [place] [address] documented as of this encounter Goals Goal Patient Goal Type Associated Problems Recent Progress Patient-Stated? Author Autogenerat ed Goal Care Plan Autogenerated Problem No Kallie Villa documented as of this encounter Visit Diagnoses Diagnosis Abnormal finding of diagnostic imaging- Primary Laryngopharyngeal reflux Acute laryngitis, without mention of obstruction documented in this encounter Additional Health Concerns Active Problems Noted Date Diagnosed Date Autogenerated Problem 01/21/2025 Assessment Noted Time PHQ-9 Depression Total Score: 0 10/02/19 1:29 PM EST A fall risk assessment has been complete d for the patient 03/25/2025 2:46 PM EDT A Body Mass Index follow-up plan has been documented for the patient 03/17/2025 12:26 PM EDT documented as of this encounter Care Teams Packing Floor Worker Relationship Specialty Start Date End Date Nader Fields MD [address] [place] [address] PCP - General 06/16/24 documented as of this encounter
[2025-04-22 19:00] LABS: Hematocrit 36.8 % (42.0-52.0); Hemoglobin 11.7 g/dL (14.1-18.0); Immature Granulocytes % 0.3 %; Mean Corpuscular HGB Conc 31.8 g/dL (31.8-35.4); Mean Corpuscular Hemoglobin 28.1 pg (27.0-31.2); Mean Corpuscular Volume 88.5 fl (80-94); Nucleated Red Blood Cells % 0 %; Platelet Count 311 K/mm3 (142-424); Red Blood Count 4.16 M/mm3 (4.60-6.20); Red Cell Distribution Width-SD 48.9 fL; White Blood Count 7.7 K/mm3 (4.8-10.8)
[2025-04-22 19:32] LABS: Chloride 97 mmol/L (98-107); Potassium 4.4 mmoL/L (3.5-5.1); Sodium 136 mmol/L (136-145)
[2025-04-22 19:35] LABS: Anion Gap 14.4 mEq/L (5-15); Blood Urea Nitrogen 31 mg/dl (9-20); Calcium 9.3 mg/dl (8.4-10.2); Carbon Dioxide 29 mmol/L (22.0-30.0); Creatinine,Serum 1.60 mg/dl (0.66-1.25); Estimated Glomerular Filt Rate 42 ml/min (>60); GFR (African American) 51 ML/MIN (>60); Glucose 109 mg/dl (74-100)
--- OUTSIDE RECORDS SUMMARY | 2025-04-23 10:31 | XMS_ITS | Encounter Summary ---
Author Organization [facility] Address [address] [place] [address] Care Team Providers Care Deodorizer Operator Name Role Phone Nader Fields MD Primary Care Provider [phone] Encounter Details Date Type Department Care Team (Late st Contact Info) Description 03/18/2025 Orders Only External Location [address] [place] [address] Provider, External Social History Tobacco Use Types [...] th e electric, gas, oil, or water [employer] threatened to shut off services in your [...] Joint [address] [facility], [address] [place] [address] Leon Anne MD [address] [facility] [address] [place] [address] 07/31/2025 12:20 PM EST Office Visit [facility] [address] [place] [address] Saroj Anderson MD [address] [place] [address] documented as of this encounter Goals [...] documented as of this encounter Care Teams Deodorizer Operator Relationship Specialty Start Date End Date Nader Fields MD [address] [place] [address] [address] [place] [address] PCP - General 06/16/24 documented as of this encounter
--- OUTSIDE RECORDS SUMMARY | 2025-04-23 10:31 | XMS_ITS | Encounter Summary ---
Author Organization [facility] Address [address] [place] [address] Care Team Providers Care Application Spec Name Role Phone Nader Fields MD Primary [...] time in the past 12 [facility], were you homeless or living in a senior living (including now)? No 02/03/2025 Utilities Answer Date Recorded In the past 12 months has th e [place], gas, oil, or water [employer] threatened to shut off services in your [...] Building Surgery Spine & Joint [address] [facility], [address] [place] [address] Leon Anne MD [address] [facility] 201 [place] [address] 07/31/2025 12:20 PM EST Office Visit [facility] [address] [place] [address] Saroj Anderson MD [address] [place] [address] documented as of this encounter Goals [...] documented as of this encounter Care Teams Application Spec Relationship Specialty Start Date End Date Nader Fields MD [address] [place] [address] [address] [place] [address] PCP - General 06/16/24 documented as of this encounter
--- OUTSIDE RECORDS SUMMARY | 2025-04-23 10:31 | XMS_ITS | Encounter Summary ---
Author Organization [facility] Address [address] [place] [address] Care Team Providers Care Mine Wirer Name Role Phone Nader Fields MD Primary Care Provider [phone] Reason for Referral * Consultation (Urgent) - Authorized Specialty Diagnoses / Procedures Referred By Jean post Referred To Contact Gastroenterology Diagnoses Abnormal finding of diagnostic imaging Dysphonia Jessie Hi MD [address] [facility] [address] [address] Phone: tel: fax: [place] [facility] [address] [place] [address] Phone: tel: fax: Referral ID Status Reason Start Date Expiration Date Visits Requested Visits Authorized [id number] Authorized Specialty Services Required 04/06/2025 10/06/2026 1 1 Scheduling Instructions [id number] to discuss retroperitoneal lymphadenopathy on recent scans Encounter Details Date Type Department Care Team (Late st Contact Info) Description 04/06/2025 Orders Only Pav CC Head, Neck & Respiratory [address] [facility], [address]nd [place] [id number] Jessie Hi MD [address] [facility] [address] [place] [address] Abnormal finding of diagnostic imaging (Primary [...] were you homeless or living in a fci (including now)? No 02/03/2025 Utilities Answer Date [...] Joint [address], [address] [place] [address] Leon Anne MD [address] [place] [address] 07/31/2025 12:20 PM EST Office Visit [facility] [address] [place] [address] Saroj Anderson MD [address] [place] [address] Scheduled Referrals Name Type Priority [...] documented as of this encounter Care Teams Mine Wirer Relationship Specialty Start Date End Date Nader Fields MD [address] [place] [id number] PCP - General 06/16/24 documented as of this encounter
--- OUTSIDE RECORDS SUMMARY | 2025-04-23 10:31 | XMS_ITS | Encounter Summary ---
Author Organization [facility] Address [address] [place] [address] Care Team Providers Care Public Works Commissioner Name Role Phone Nader Fields MD Primary Care Provider [phone] Encounter Details Date Type Department Care Team (Late Contact Info) Description 04/03/2024 Orders Only External Location [address] [place] [address] Kevin Zheng, DO [address] [...] [facility], [address] [place] [address] Leon Anne MD [address] [place] [address] 07/31/2025 12:20 PM EST Office Visit [facility] [address] [place] [address] Saroj Anderson MD [address] [place] [address] documented as of this encounter Procedures Procedure [...] documented as of this encounter Care Teams Public Works Commissioner Relationship Specialty Start Date End Date Nader Fields MD [address] [facility] [address] [place] [address] PCP - General 06/16/24 documented as of this encounter
--- OUTSIDE RECORDS SUMMARY | 2025-04-23 10:31 | XMS_ITS | Encounter Summary ---
Author Organization [facility] Address [address] [place] [address] Care Team Providers Care Stick Inserter Name Role Phone Nader Fields MD Primary Care Provider [phone] Reason for Referral * Home Health (Routine) - Authorized Specialty Diagnoses / Procedures Referred By Jean post Referred To Contact Home Health Services / Orthopaedic Surgery Diagnoses S/P total knee arthroplasty, right Leon Anne MD [address] [facility] [address] [place] [address] Phone: tel: fax: Referral ID Status Reason Start Date Expiration Date Visits Requested Visits Authorized [id number] Authorized Specialty Services Required 03/09/2025 09/08/2026 999 999 Encounter Details Date Type Department Care Team (Late st Contact Info) Description 03/09/2025 Orders Only Medical Office Building Surgery Spine & Joint [address] [place] [address] Leon Anne MD [address] [facility] [address] [place] [address] S/P total knee arthroplasty, right [...] Spine & Joint [address] [facility], [address] [place] [address] Leon Anne MD [address] [place] [address] 07/31/2025 12:20 PM EST Office Visit [facility] [address] [facility] [address] [place] [address] Saroj Anderson MD [address] [place] [address] Scheduled Referrals Name Type Priority [...] documented as of this encounter Care Teams Stick Inserter Relationship Specialty Start Date End Date Nader Fields MD [address] [place] [address] PCP - General 06/16/24 documented as of this encounter
--- OUTSIDE RECORDS SUMMARY | 2025-04-23 10:31 | XMS_ITS | Encounter Summary ---
Author Organization Address [address] [place] [address] Care Team Providers Care Wool Grower Name Role Phone Nader Fields MD Primary Care Provider [phone] Encounter Details Date Type Department Care Team (Late st Contact Info) Description 03/18/2025 Orders Only External Location [address] [place] [address] Provider, External Social History Tobacco Use Types [...] any time in the past 12 m [facility], were you homeless or living in a jail (including now)? No 02/03/2025 Utilities Answer Date Recorded In the past 12 months has th e electric, gas, oil, or water [employer] threatened to shut off services in your [...] Building Surgery Spine & Joint [address] [facility], [address] [place] [address] Leon Anne MD [address] [facility] [address] [place] [address] 07/31/2025 12:20 PM EST Office Visit [facility] [address] [place] [address] Saroj Anderson MD [address] [place] [address] documented as of this encounter Goals [...] documented as of this encounter Care Teams Wool Grower Relationship Specialty Start Date End Date Nader Fields MD [address] [place] [address] [address] [place] [address] PCP - General 06/16/24 documented as of this encounter
--- OUTSIDE RECORDS SUMMARY | 2025-04-23 10:31 | XMS_ITS | Encounter Summary ---
Author Organization [facility] Address [address] [place] [address] Care Team Providers Care Irrigation Specialist Name Role Phone Nader Fields MD Primary Care Provider [phone] Encounter Details Date Type Department Care Team (Late st Contact Info) Description 03/18/2025 Orders Only External Location [address] [place] [address] Provider, External Social History Tobacco Use Types [...] any time in the past 12 m [facility], were you homeless or living in a half-way (including now)? No 02/03/2025 Utilities Answer Date Recorded In the past 12 months has th e electric, gas, oil, or water [employer] threatened to shut off services in your [...] [facility], [address] [place] [address] Leon Anne MD [address] [facility] 201 [place] [address] 07/31/2025 12:20 PM EST Office Visit [facility] [address] [place] [address] Saroj Anderson MD [address] [place] [address] documented as of this encounter Goals [...] documented as of this encounter Care Teams Irrigation Specialist Relationship Specialty Start Date End Date Nader Fields MD [address] [place] [address] [address] [place] [address] PCP - General 06/16/24 documented as of this encounter
--- OUTSIDE RECORDS SUMMARY | 2025-04-23 10:31 | XMS_ITS | Clinical Summary ---
Author Organization [facility] Address [address] [place] [id number] Care Team Providers Care Plastic Card Grader Cardroom Name Role Phone Nader Fields MD Primary Care Provider [phone] Allergies Active Allergy Reactions Criticality Noted Date Comments Tetanus Toxoids 07/06/2017 Medications aspirin 81 MG tablet Take 81 mg by mouth Take As Directed. Active pravastatin (PRAVACHOL) 20 MG tablet 05/02/2017 Active naproxen (NAPROSYN) 500 MG tablet 06/25/2017 Active metFORMIN (GLUCOPHAGE) 1000 MG tablet 07/02/2017 Acti ve lisinopril-hydro chlorothiazide (PRINZIDE,ZESTOR ETIC) 20-25 MG per tablet 04/11/2017 Active TRADJENTA 5 MG tablet tablet 06/29/2017 Activ e glimepiride (AMARYL) 2 MG tablet 06/29/2017 Active famotidine (PEPCID) 20 MG tablet 05/25/2017 Active Active Problems No known active problems Family History Medical History Relation Name Comments Heart attack Father Heart disease Father Osteoarthritis Father Heart attack Other Grandparent Stroke Other Grandparent Relation Name Status Comments Father Other Grandparent Social History Tobacco Use Types Packs/Day Years Used Date Smoking Tobacco: Never Smokeless Tobacco: Never Alcohol Use Standard Drinks/Week Comments No 0 (1 standard drink = 0.6 oz pur e alcohol) Abuse Screen Answer Date Recorded Unsafe at Home or Work/School Not on file Feels Threatened by Someone? Not on file 07/2023 Does Anyone Keep You from Co ntacting Others or Doint Things Outside the Home? Not on file 07/04/2023 Physical Sign of Abuse Present Not on file 1 Housing Stability Answer Date Recorded Current Living Arrangements Not on file 06/24 Potentially Unsafe Housing Conditions Not on lidia e 07/04/2023 Family and Community Support Answer Gaetano e Recorded Help with Day-to-Day Activities Not on file 07/04/2023 Lonely or Isolated Not on file 07/04/2023 Employment Answer Date Recorded Do you want help finding or keeping work or a alcira b? Not on file 07/04/2023 Disabilities Answer Date Recorded Concentrating, Remembering, or Making Decisions Difficulty Not on file 07/04/2023 Doing Errands Independently Difficulty Not on fi le 07/04/2023 Education Answer Date Recorded Help with school or training? Not on file Preferred Language Not on file 07/04/2023 Sex and Gender Information Value Date Recorded Sex Assigned at Not on file Legal Sex Male 12:58 PM EDT Gender Identity Not on file Sexual Orientation Not on file Last Filed Vital Signs Vital Sign Reading Time Taken Comments Blood Pressure 174/83 07/11/2017 2:40 PM EDT Pulse 74 07/11/2017 2:40 PM EDT Temperature - - Respiratory Rate - - Oxygen Saturation - - Inhaled Oxygen Concentration - - Weight 152 kg (335 lb) 07/11/2017 2:40 PM EDT Height 175.3 cm (5' 9 ) 07/11/2017 2:40 PM EDT Body Mass Index 49.47 07/11/2017 2:40 PM EDT Plan of Treatment Health Maintenance Due Date Last Done Comments COLOGUARD 1995 COLON CANCER SCREENING 5 YEAR SIGMOIDOSCOPY 1995 COLONOSCOPY 1995 COL[address]ECTAL CANCER SCREENING 1995 CT COLONOGRAPHY 1995 FECAL OCCULT BLOOD TEST 1995 FIT Testing (1 year) 1995 Pneumococcal Vaccine 50+ (1 of 1 - PCV) 2000 ZOSTER VACCINE (1 of 2) 2000 AAA SCREEN ONCE 2015 ANNUAL PHYSICAL 07/06/2017 HEPATITIS C SCREENING 07/06/2017 COVID-19 Vaccine ( season) 2024 INFLUENZA VACCINE 06/24/2025 Insurance [id number] MEDICARE ADVANTAGE Care Teams Plastic Card Grader Cardroom Relationship Specialty Start Date End Date Nader Fields MD [address] [facility] [address] [place] [phone] PCP - General Internal Medicine 06/11/17
--- OUTSIDE RECORDS SUMMARY | 2025-04-23 10:31 | XMS_ITS | Encounter Summary ---
Author Organization [facility] Address [address] [place] [address] Care Team Providers Care Administrative Associate Name Role Phone Nader Fields MD Primary Care Provider [phone] Reason for Visit * Reason Onset Date Comments HCN - Patient Message 03/09/2025 Encounter Details Date Type Department Care Team ([facility] st Contact Info) Description 03/09/2025 Telephone Medical Office Building Surgery Spine & Joint [address] [facility], [address] [place] [address] Leon Anne MD [address] [facility] 201 [place] [address] HCN - Patient Message Social [...] Reason for Call: [facility] and needs an order for in home PT. She is asking that the clinic reach out to the pt. Best contact number: [phone] (mobile) Optimal time of day to reach caller: ANYTIME Additional comments/information from caller: None Note: Please do not reply to this message. Follow-up communication and further actions as a result of this message need to be communicated with the patient directly, if the patient is not active onMyChart. If the patient is active on MyChart, they will receive notification of the communication/outcome via [employer]. documented in this encounter Plan of Treatment Upcoming Encounters Date Type Department Care Team (Late st Contact Info) Description 06/18/2025 12:40 PM EDT Office Visit Medical Office Building Surgery Spine [facility] Joint [address] [facility], [address] [place] [address] Leon Anne MD [address] [facility] 201 [place] [address] 07/31/2025 12:20 PM EST Office Visit [facility] [address] [place] [address] Saroj Anderson MD [address] [place] [address] documented as of this encounter [...] documented as of this encounter Care Teams Administrative Associate Relationship Specialty Start Date End Date Nader Fields MD [address] [place] [address] [address] [place] [address] PCP - General 06/16/24 documented as of this encounter
--- OUTSIDE RECORDS SUMMARY | 2025-04-23 10:31 | XMS_ITS | Encounter Summary ---
Author Organization [facility] Address [address] [place] [address] Care Team Providers Care Industrial Machinery Mechanic Name Role Phone Nader Fields MD Primary Care Provider [phone] Encounter Details Date Type Department Care Team (Late Contact Info) Description 04/03/2024 Orders Only External Location [address] [place] [address] Kevin Zheng, DO [address] Building Surgery Spine & Joint [address] [facility], [address] [place] [address] Leon Anne MD [address] [place] [address] 07/31/2025 12:20 PM EST Office Visit [facility] [address] [place] [address] Saroj Anderson MD [address] [place] [address] documented as of this encounter Procedures Procedure [...] documented as of this encounter Care Teams Industrial Machinery Mechanic Relationship Specialty Start Date End Date Nader Fields MD [address] [facility] [address] [place] [address] PCP - General 06/16/24 documented as of this encounter
--- OUTSIDE RECORDS SUMMARY | 2025-04-23 10:31 | XMS_ITS | Encounter Summary ---
Author Organization Healthcare Address [address] [place] [address] Care Team Providers Care Maintenance Repairer Name Role Phone Nader Fields MD Primary Care Provider [phone] Reason for Visit * Reason Onset Date Comments HCN - Patient Message 03/26/2025 Encounter Details Date Type Department Care Team (Late st Contact Info) Description 03/26/2025 Telephone [facility] [address], [address] [place] [address] Jessie Hi MD [address] [place] [address] [facility] [address] [place] [phone] HCN - Patient Message Social History [...] office note from 03/25 visit. FAX - [phone] Best contact number and optimal time of day to reach caller: [phone] - anytime Note: Please do not reply to this message. Follow-up communication and further actions as a result of this message need to be communicated with the patient directly, if the patient is not active onMyChart. If the patient is active on MyChart, they will receive notification of the communication/outcome via [employer]. documented in this encounter Plan of Treatment Upcoming Encounters Date Type Department Care Team (Late st Contact Info) Description 06/18/2025 12:40 PM EDT Office Visit Medical Office Building Surgery Sp[facility] [address] [facility], [address] [place] [address] Leon Anne MD [address] [facility] [address] [place] [address] 07/31/2025 12:20 PM EST Office Visit [facility] [address] [place] [address] Saroj Anderson MD [address] [place] [address] documented as of this encounter [...] documented as of this encounter Care Teams Maintenance Repairer Relationship Specialty Start Date End Date Nader Fields MD [address] [place] [address] [address] [place] [address] PCP - General 06/16/24 documented as of this encounter
--- OUTSIDE RECORDS SUMMARY | 2025-04-23 10:31 | XMS_ITS | Encounter Summary ---
Author Organization [facility] Address [address] [place] [address] Care Team Providers Care Food Writer Name Role Phone Nader Fields MD Primary Care Provider [phone] Reason for Visit * Reason Onset Date Comments HCN - Patient Message 03/13/2025 Encounter Details Date Type Department Care Team ([facility] st Contact Info) Description 03/13/2025 Telephone Medical Office Building Surgery Spine & Joint [address] [facility], [address] [place] [address] Leon Anne MD [address] [facility] [address] [place] [address] HCN - Patient Message Social [...] in the past 12 m [facility], were you homeless or living [...] 03/17/2025 11:07 AM EDT Called Marcel with [employer] . Left voicemail giving him an update [...] heads up. * Telephone Encounter - Lorraine iWnston RN - 03/16/2025 8:46 AM EDT Tried to call Marcel with and did not answer. Voicemail was left to call direct line. * Telephone Encounter - Andi Olivas - 03/13/2025 4:51 PM EDT Clinical Concern/Question Reason for Call: Marcel W/ Ethan is asking to get verbal nursing orders and some concerns hehas on Omid patient. Best contact number: Other: [phone] Optimal time of day to reach caller: [...] & Joint [address] [facility], [address] [place] [address] Leon Anne MD [address] [place] [address] 07/31/2025 12:20 PM EST Office Visit [facility] [address] [facility] [facility] [address] [place] [address] Saroj Anderson MD [address] [place] [address] documented as of this encounter Goals [...] documented as of this encounter Care Teams Food Writer Relationship Specialty Start Date End Date Nader Fields MD [address] [facility] [address] [place] [address] PCP - General 06/16/24 documented as of this encounter
--- OUTSIDE RECORDS SUMMARY | 2025-04-23 10:31 | XMS_ITS | Encounter Summary ---
Author Organization [facility] Address [address] [place] [address] Care Team Providers Care Mechanical Product Design Engineer Name Role Phone Nader Fields MD Primary Care Provider Encounter Details Date Type Department Care Team ([facility] st Contact Info) Description 03/16/2025 Orders Only Medical Office Building Surgery Spine & Joint [address] [facility], [address] [place] [address] Leon Anne MD [address] [place] [address] Social History Tobacco Use Types [...] any time in the past 12 m [facility], were you homeless or living in [...] Joint [address] [place] [address] Leon Anne MD [address] [facility] [address] [place] [address] 07/31/2025 12:20 PM EST [facility] [address] [place] [phone] Saroj Anderson MD [address] [place] [address] documented as of this encounter [...] documented as of this encounter Care Teams Mechanical Product Design Engineer Relationship Specialty Start Date End Date Nader Fields MD [address] [facility] [address] [place] [address] PCP - General 06/16/24 documented as of this encounter
--- OUTSIDE RECORDS SUMMARY | 2025-04-23 10:32 | XMS_ITS | Encounter Summary ---
Author Organization [facility] Address [address] [place] [address] Care Team Providers Care Chief Nurse Name Role Phone Nader Fields MD Primary [...] the past 12 months has th e [employer], gas, oil, or water [employer] threatened to shut off services in your [...] Joint [address], [address] [place] [address] Leon Anne MD [address] [place] [address] 07/31/2025 12:20 PM EST Office Visit [facility] [address] [place] [address] Saroj Anderson MD [address] [place] [address] documented as of this encounter [...] documented as of this encounter Care Teams Chief Nurse Relationship Specialty Start Date End Date Nader Fields MD [address] [facility] [address] [place] [id number] PCP - General 06/16/24 documented as of this encounter
--- OUTSIDE RECORDS SUMMARY | 2025-04-23 10:32 | XMS_ITS | Clinical Summary ---
Author Organization [facility] Address [address] [place] [address] Care Team Providers Care Mold Yard Worker Name Role Phone Nader Fields MD Primary Care Provider Allergies Active Allergy Reactions Criticality Noted Date Comments Tetanus Toxoids Itching Medium 07/06/2017 Medications * This document contains information received from the source organization and may not represent a complete record from that organization. metFORMIN (Glucophage) 1000 MG tablet Take 1 tablet by mouth 2 times a day with meals. 4 Active pioglitazone (Actos) 15 MG tablet Take 1 tablet by mouth daily. 4 Active pravastatin (Pravachol) 20 MG tablet Take 1 tablet by mouth daily. 4 Active cyanocobalamin 1000 MCG tablet Take 1 tablet by mouth daily. Active famotidine (Pepcid) 20 MG tablet Take 1 tablet by mouth daily. Active nystatin (Mycostatin) 974848 UNIT/GM powder Apply to skin folds twice daily 60 g 5 Active gabapentin (Neurontin) 100 MG capsule Take 1 capsule by mouth 3 times a day. If this medication makes you drowsy you may take it only at bedtime 30 capsule 5 Active naloxone (Narcan) 4 mg/0.1 mL nasal spray 1. Give 1 spray in nostril for no/slow breathing or cannot wake after opioid use 2. Call 911 3. Repeat in other nostril if symptoms continue 1 each 5 Active semaglutide 8 MG/3ML solution pen-injector Inject 2 mg under the skin 1 time per week. Active acetaminophen (Tylenol) 325 MG tablet Take 2 tablets by mouth every 6 hours as needed for pain. Under [place] law, monthly prescriptions (30 days) can be refilled at 25 days and three-month prescriptions (90 days) at 80 days. Please contact the insurance company with questions if refills are denied. 5 Active amLODIPine (Norvasc) 5 MG tablet Take 1 tablet by mouth daily. 5 Active methocarbamol (Robaxin) 750 MG tablet Take 1 tablet by mouth every 6 hours. 5 Active lisinopril 20 MG tablet Take 1 tablet by mouth daily. 5 Active polyethylene glycol (Miralax) 17 g packet Take 17 g by mouth 2 times a day. 5 Active senna (Senokot) 8.6 MG tablet Take 1 tablet by mouth nightly. 5 Active nystatin (Mycostatin) 828789 UNIT/GM powder Apply to skin folds twice daily. 60 g 5 Active gabapentin (Neurontin) 100 MG capsule Take 1 capsule by mouth 3 times a day for 3 days. 9 capsule 5 Active apixaban (Eliquis) 5 MG tablet Take 1 tablet by mouth 2 times a day. 120 tablet 5 05/15/20 25 Active Active Problems Problem Noted Date Diagnosed Date [...] [facility] [address] [facility], [address] [place] [address] Jessie Hi MD Abnormal finding of diagnostic imaging (Primary Dx); Dysphonia 03/26/2025 Telephone [place] [facility] [address], [address] [place] [id number] Jessie Hi MD HCN - Patient Message 03/25/2025 2:30 PM EDT Office Visit Pav [facility] Head[facility] [address] [facility] [place] [address] Jessie Hi MD Abnormal finding of diagnostic imaging (Primary Dx); Laryngopharyngeal reflux 03/25/2025 Travel 03/18/2025 Orders Only External Location [address] [place] [phone] Provider, External 03/18/2025 Orders Only External Location [address] [place] [address] Provider, External 03/18/2025 Orders Only External Location [address] [place] [address] Provider, External 03/17/2025 11:30 AM EDT Office Visit Medical Office Building Surgery Spine & Joint [address] [facility], [address] [place] [address] Leon Anne MD S/P total knee arthroplasty, right (Primary Dx) 03/17/2025 10:57 AM EDT - 03/17/2025 11:59 PM EDT Hospital Encounter Medical Office Building Radiology [address] [place] [address] S/P total knee arthroplasty, right Discharge Disposition: Home or Self Care 03/17/2025 Travel 03/16/2025 Orders Only Medical Office Building Surgery Sp[facility] [address] [facility], [address] [place] [address] Leon Anne MD 03/13/2025 Telephone Medical Office Building Surgery Spine & Joint [address] [facility], [address] [place] [address] Leon Anne MD HCN - Patient Message 03/09/2025 Orders Only Medical Office Building Surgery Spine & Joint [address] [facility], [address] [place] [address] Leon Anne MD S/P total knee arthroplasty, right (Primary Dx) 03/09/2025 Telephone Medical Office Building Surgery Spine [facility] Joint [address] [facility], [address] [place] [address] Leon Anne MD HCN - Patient Message 02/12/2025 10:20 AM EDT Office Visit Medical Office Building Surgery Spine & Joint [address] [facility], [address] [place] [address] Liya Soto PA S/P total knee arthroplasty, right (Primary Dx) 02/12/2025 Travel 02/05/2025 Travel 02/03/2025 Travel 02/02/2025 Travel 01/30/2025 Telephone Medical Office Building Surgery Spine [facility] Joint [address] [facility], [address] [place] [address] Leon Anne MD HCN - Patient Message 01/28/2025 11:40 AM EDT Anesthesia Event [facility] S Operating Room [address] [place] [address] Ja Alexandre CRNA Baker, Matthew L, MD 01/28/2025 11:00 AM EDT - 01/28/2025 1:30 PM EDT Surgery P[facility] S Operating Room [address] [place] [address] Leon Anne MD ARTHROPLASTY, KNEE, TOTAL, USING COMPUTER-ASSISTED NAVIGATION [52196 (CPT )] 01/28/2025 7:52 AM EDT - 01/29/2025 3:31 PM EDT Hospital Encounter [facility] S Inpatient [address] [place] [address] Leon Anne MD Arthritis of right knee (Primary Dx) Discharge Disposition: Home or Self Care 01/28/2025 Travel 01/23/2025 Travel 01/23/2025 Telephone Medical Office Building Surgery Spine [facility] Joint [address] [facility], [address] [place] [address] Leon Anne MD 01/21/2025 Orders Only Medical Office Building Surgery Spine & Joint [address] [facility], [address] [place] [address] Leon Anne MD Preop testing [...] time in the past 12 m [facility], were you homeless or living in [...] Building Surgery Spine & Joint [address] [facility], [address] [place] [address] Leon Anne MD [address] [facility] [address] [place] [address] 07/31/2025 12:20 PM EST Office Visit [facility] [address] [place] [address] Saroj Anderson MD [address] [place] [address] Health Maintenance Due Date Last [...] - Risk 60-74 years 1-dose series) 2010 [id number] Vaccine ( season) 2024 03/15/2022, 07/27/2021, 12/01/2020, [...] [employer] Devices Implanted Type Area Bradder Device Identifier Shelf Expiration Date Model / Serial / Lot Cement Palacos Mv - [id number] Implanted:Qty: 3 on 01/28/2025 by Leon Anne MD at [facility] Right: Knee [employer]-[id number] 03/23/2029 [id number] / / [id number] Chg Tibial [employer] R - [id number] Implanted:Qty: 1 on 01/28/2025 by Leon Anne MD at [facility] Right: Knee [employer]ei[employer]hew [employer]-[id number] 07/21/2034 [id number] / / [id number] Chg Patella Gii Oval Resurfaci - [id number] Implanted:Qty: 1 on 01/28/2025 by Leon Anne MD at [facility] Right: Knee [employer]-[id number] 10/11/2032 [id number] / / [id number] Jrny Ii Bcs Femoral Oxin Rt Sz - [id number] Implanted:Qty: 1 on 01/28/2025 by Leon Anne MD at [facility] Right: Knee [employer]-[id number] 07/06/2034 [id number] / / [id number] Jrny Ii Bcs Xlpe Art Isrt Sz 7 - [id number] Implanted:Qty: 1 on 01/28/2025 by Leon Anne MD at [facility] Right: Knee [employer]-[id number] 07/08/2032 [id number] / / [id number] Procedures Procedure Name Priority Date/Time Associated Diagnosis [...] ANESTHESIA PLACEHOLDER Routine 01/28/2025 11:54 AM EDT UT AN ELECTIVE ENDOTRACHEAL AIRWAY Routine 01/28/2025 11:54 AM EDT UT TOTAL KNEE ARTHROPLASTY 01/28/2025 11:27 AM EDT [...] MD on 03/17/2025 12:57 PM us Liya Mistichuck PA IMG XR PROCEDURES Final Resul t [...] 02/07/2025 12:22 PM EDT [facility] Computer Support Specialist Instructor ID Mohinder Verdin 02/07/2025 12:22 PM EDT [facility] Device ID [id number] 02/07/2025 12:22 PM EDT [facility] Specimen Type POC Capillary 02/07/2025 12:22 PM EDT [facility] Blood Capillary blood specimen / Unknown 02/07/2025 12:19 PM EDT 02/07/2025 12:22 PM EDT us Nithya Doyle DO LAB POINT OF CAR E TEST DOCKED DEVICE UNSOLICITED RESULTS Final Result [facility] [address] [place] [address] * XR Chest 1 View (02/05/2025 10:52 [...] LAB HEMATOLOGY METHOD 02/04/2025 3:32 AM EDT [facility] RBC Count 3.48(L) 4.60 - 6.10 10*6/uL LAB HEMATOLOGY METHOD 02/04/2025 3:32 AM EDT [facility] HGB 9.9(L) 13.7 - 17.5 g/dL LAB HEMATOLOGY METHOD 02/04/2025 3:32 AM EDT [facility] HCT 30.7(L) 40.0 - 51.0 % LAB HEMATOLOGY METHOD 02/04/2025 3:32 AM EDT [facility] Platelet Count 356 155 - 369 10*3/uL LAB HEMATOLOGY METHOD 02/04/2025 3:32 AM EDT [facility] MCV 88 79 - 98 fL LAB HEMATOLOGY METHOD 02/04/2025 3:32 AM EDT [facility] MCH 28.4 26.0 - 32.0 pg LAB HEMATOLOGY METHOD 02/04/2025 3:32 AM EDT [facility] MCHC 32.2 30.7 - 35.5 g/dL LAB HEMATOLOGY METHOD 02/04/2025 3:32 AM EDT [facility] RDW 13.0 11.5 - 14.5 % LAB HEMATOLOGY METHOD 02/04/2025 3:32 AM EDT [facility] MPV 8.7(L) 8.8 - 12.5 fL LAB HEMATOLOGY METHOD 02/04/2025 3:32 AM EDT [facility] nRBC 0.0 <=0.0 per 100 WBCs LAB HEMATOLOGY METHOD 02/04/2025 3:32 AM EDT [facility] Differential Type Automated LAB HEMATOLOGY METHOD 02/04/2025 3:32 AM EDT [facility] Neutrophils % 58 % LAB HEMATOLOGY METHOD 02/04/2025 3:32 AM EDT [facility] Lymphocytes % 20 % LAB HEMATOLOGY METHOD 02/04/2025 3:32 AM EDT [facility] Monocytes % 14 % LAB HEMATOLOGY METHOD 02/04/2025 3:32 AM EDT [facility] Eosinophils % 6 % LAB HEMATOLOGY METHOD 02/04/2025 3:32 AM EDT [facility] Basophils % 1 % LAB HEMATOLOGY METHOD 02/04/2025 3:32 AM EDT [facility] Immature Granulocytes % 1 % LAB HEMATOLOGY METHOD 02/04/2025 3:32 AM EDT [facility] Neutrophils Absolute 4.72 1.60 - 6.10 10*3/uL LAB HEMATOLOGY METHOD 02/04/2025 3:32 AM EDT [facility] Lymphocytes Absolute 1.57 1.20 - 3.90 [...] METHOD 02/04/2025 3:32 AM EDT [facility] Immature Granulocytes Absolute 0.05 0.00 - 0.06 10*3/uL LAB HEMATOLOGY METHOD 02/04/2025 3:32 AM EDT [facility] Blood Venous blood specimen / Unknown Venipuncture / Unknown 02/04/2025 3:14 AM EDT 02/04/2025 3:26 AM EDT Narrative [facility]ARE [facility] - 02/04/2025 3:32 AM EDT Therapeutic decision making should be based on absolute values, rather than percentages. [facility] LAB BLOOD ORDERABLES Fin al Result [facility] [address] [place] [id number] * Magnesium (02/04/2025 3:14 AM EDT) Only the most recent of3 resultswithin the time period is included. Magnesium, Plasma 1.9 1.9 - 2.4 mg/dL 02/04/2025 9:14 AM EDT [facility] Blood Venous blood specimen / Unknown Venipuncture / Unknown 02/04/2025 3:14 AM EDT 02/04/2025 3:23 AM EDT [facility] DO LAB BLOOD ORDERABLES Fin al Result Performing Organization Address City/[facility]/ZIP Co de Phone Number HEALTHCARE LAB [address] [place] [address] * (ABNORMAL) Basic metabolic panel (02/04/2025 3:14 AM EDT) Only the most recent of2 resultswithin the time period is included. Glucose, Plasma 138(H) 74 - 99 mg/dL 02/04/2025 3:52 AM EDT [facility] BUN, Plasma 32(H) 8 - 23 mg/dL 02/04/2025 3:52 AM EDT [facility] Creatinine, Plasma 1.42(H) 0.70 - 1.20 mg/dL 02/04/2025 3:52 AM EDT [facility] BUN/Creatinine Ratio 23 02/04/2025 3:52 AM EDT [facility] Sodium, Plasma 136 136 - 145 mmol/L 02/04/2025 3:52 AM EDT [facility] Potassium, Plasma 3.9 3.6 - 4.9 mmol/L 02/04/2025 3:52 AM EDT [facility] Chloride, Plasma 98 97 - 107 mmol/L 02/04/2025 3:52 AM EDT [facility] CO2, Plasma 25 22 - 29 mmol/L 02/04/2025 3:52 AM EDT [facility] Anion Gap 13 6 - 16 mmol/L 02/04/2025 3:52 AM EDT [facility] Total Calcium, Plasma 9.1 8.9 - 10.2 mg/dL 02/04/2025 3:52 AM EDT [facility] eGFRcr 51.9 mL/min/1.7 3m*2 02/04/2025 3:52 AM EDT [facility] Comment:Reported eGFRcr in m L/min/1.73m2 is based the CKD-EPI 2020 equation that does not use a race coefficient. Blood Venous blood specimen / Unknown Venipuncture / Unknown 02/04/2025 3:14 AM EDT 02/04/2025 3:23 AM EDT Nithya Doyle DO LAB BLOOD ORDERABLES Fin al Result Performing Organization Address City/[facility]/ZIP Co de Phone Number HEALTHCARE LAB [address] [place] [address] * XR Abdomen 1 View (02/03/2025 6:01 [...] at day 5 02/08/2025 12:01 PM EDT [facility] Blood Structure of left hand / Unknown Venipuncture / Unknown 02/03/2025 10:01 AM EDT 02/03/2025 10:16 AM EDT Nithya Doyle DO LAB MICROBIOLOGY - GENER AL ORDERABLES Final Result [facility] [address] [place] [address] * VAS US Venous Duplex Lower Extremity [...] is no recent study available for direct [id number] comparison. Left Ventricle The left ventricle is [...] is no recent study available for direct [id number] comparison. Nithya Doyle DO CV ECHO PROCEDURES Final Result * Nasopharyngeal Respiratory Panel (02/03/2025 8:29 AM EDT) Nasopharyngeal Respiratory PCR Interpretation Not Detected for all analytes Not Detected for all analytes 02/03/2025 1:34 PM EDT [facility] Swab Nasopharyngeal structure / Unknown Non-blood Collection / Unknown 02/03/2025 8:29 AM EDT 02/03/2025 8:46 AM EDT Narrative [facility] - 02/03/2025 1:34 PM [...] Respiratory PCR Panel is performed using the [employer] ePlex instrument. This test is FDA approved for use with Nasopharyngeal swabs only. This test is used for clinical purposes. It should not be regarded as investigational or for research. The [facility] Clinical Microbiology Laboratory is certified under the Clinical Laboratory Improvement Amendments of 1988 (CLIA-88) as qualified to perform high complexity clinical laboratory testing. Nithya Doyle DO LAB MICROBIOLOGY - GENER AL ORDERABLES Final Result [facility] [address] [place] [address] * (ABNORMAL) Blood gas panel, arterial (02/03/2025 8:05 AM EDT) pH, Arterial 7.45(H) 7.31 - 7.42 LAB HEMATOLOGY METHOD 02/03/2025 8:12 AM EDT [facility] pCO2, Arterial 43 32 - 45 mmHg LAB HEMATOLOGY METHOD 02/03/2025 8:12 AM EDT [facility] pO2, Arterial 64(L) >70 mmHg LAB HEMATOLOGY METHOD 02/03/2025 8:12 AM EDT [facility] SO2, Measured, Arterial 93(L) 94 - 98 % LAB HEMATOLOGY METHOD 02/03/2025 8:12 AM EDT [facility] Base Excess, Arterial 5.4(H) -2.0 - 3.0 mmol/L LAB HEMATOLOGY METHOD 02/03/2025 8:12 AM EDT [facility] Bicarbonate, Calculated, Arterial 30(H) 22 - 26 mmol/L LAB HEMATOLOGY METHOD 02/03/2025 8:12 AM EDT [facility] Hematocrit, Whole Blood 29.6(L) 40.0 - 51.0 % LAB HEMATOLOGY METHOD 02/03/2025 8:12 AM EDT [facility] Sodium, Whole Blood 139 136 - 145 mmol/L LAB HEMATOLOGY METHOD 02/03/2025 8:12 AM EDT [facility] Potassium, Whole Blood 3.6 3.6 - 4.9 mmol/L LAB HEMATOLOGY METHOD 02/03/2025 8:12 AM EDT [facility] Chloride, Whole Blood 97 97 - 107 mmol/L LAB HEMATOLOGY METHOD 02/03/2025 8:12 AM EDT [facility] Glucose, Whole Blood 135(H) 74 - 99 mg/dL LAB HEMATOLOGY METHOD 02/03/2025 8:12 AM EDT [facility] Ionized Calcium, Whole Blood 4.7 4.6 - 5.1 mg/dL LAB HEMATOLOGY METHOD 02/03/2025 8:12 AM EDT [facility] Lactate, Arterial, Whole Blood 0.7 0.5 - 1.6 mmol/L LAB HEMATOLOGY METHOD 02/03/2025 8:12 AM EDT [facility] Blood Arterial blood specimen / Unknown Arterial Puncture / Unknown 02/03/2025 8:05 AM EDT 02/03/2025 8:10 AM EDT us Nithya Doyle DO LAB BLOOD ORDERABLES Fin al Result [facility] [address] [place] [address] * (ABNORMAL) Comprehensive metabolic panel (02/03/2025 3:46 AM EDT) Only the most recent of2 resultswithin the time period is included. Glucose, Plasma 133(H) 74 - 99 mg/dL 02/03/2025 4:26 AM EDT [facility] BUN, Plasma 33(H) 8 - 23 mg/dL 02/03/2025 4:26 AM EDT [facility] Creatinine, Plasma 1.46(H) 0.70 - 1.20 mg/dL 02/03/2025 4:26 AM EDT [facility] BUN/Creatinine Ratio 23 02/03/2025 4:26 AM EDT [facility] Sodium, Plasma 134(L) 136 - 145 mmol/L 02/03/2025 4:26 AM EDT [facility] Potassium, Plasma 3.7 3.6 - 4.9 mmol/L 02/03/2025 4:26 AM EDT [facility] Chloride, Plasma 96(L) 97 - 107 mmol/L 02/03/2025 4:26 AM EDT [facility] CO2, Plasma 25 22 - 29 mmol/L 02/03/2025 4:26 AM EDT [facility] Anion Gap 13 6 - 16 mmol/L 02/03/2025 4:26 AM EDT [facility] Total Calcium, Plasma 9.0 8.9 - 10.2 mg/dL 02/03/2025 4:26 AM EDT [facility] Total Protein 7.1 6.3 - 7.9 g/dL 02/03/2025 4:26 AM EDT [facility] Albumin, Plasma 3.2(L) 3.5 - 5.2 g/dL 02/03/2025 4:26 AM EDT [facility] AST, Plasma 22 10 - 50 U/L 02/03/2025 4:26 AM EDT [facility] ALT, Plasma <5(L) 10 - 50 U/L 02/03/2025 4:26 AM EDT [facility] Alkaline Phosphatase, Plasma 70 40 - 115 U/L 02/03/2025 4:26 AM EDT [facility] Total Bilirubin, Plasma 0.3 0.2 - 1.1 mg/dL 02/03/2025 4:26 AM EDT [facility] eGFRcr 50.2 mL/min/1.7 3m*2 02/03/2025 4:26 AM EDT [facility] Comment:Reported eGFRcr in m L/min/1.73m2 is based the CKD-EPI 2020 equation that does not use a race coefficient. Blood Venous blood specimen / Unknown Venipuncture / Unknown 02/03/2025 3:46 AM EDT 02/03/2025 3:59 AM EDT us Nithya Doyle DO LAB BLOOD ORDERABLES Fin al Result [facility] [address] [place] [address] * CT Angio Pulmonary Embolism (02/02/2025 5:37 [...] Claudio MD on 02/02/2025 6:29 PM Alessio Barahona PA IMG CT PROCEDURES Final Resul t * [...] ORDERABLES Final Re sult Performing Organization Address City/[facility] Co de Phone Number [facility]ALTH[facility]ARE LAB [address] [place] [address] * N-Terminal Probnp (02/02/2025 4:18 PM EDT) N-Terminal, PROBNP, Plasma 252 0 - 899 pg/mL 02/02/2025 6:58 PM EDT [facility] Blood Venous blood specimen / Unknown Venipuncture / Unknown 02/02/2025 4:18 PM EDT 02/02/2025 4:28 PM EDT Nithya Doyle DO LAB BLOOD ORDERABLES Fin al Result Performing Organization Address [facility] de Phone Number [facility]ARE [facility] [address] [place] [address] * EKG now - STAT (adult) (02/02/2025 2:10 PM EDT) EKG DIAGNOSIS CLASS Abnormal MUSE ECG Ventricular Rate 87 BPM MUSE ECG Atrial Rate 87 BPM MUSE ECG UT Interval 244 ms MUSE ECG QRSD Interval 112 ms MUSE ECG QT Interval 364 ms MUSE ECG QTC Interval 438 ms MUSE ECG P [place] 18 degrees MUSE ECG R [place] 27 degrees MUSE ECG T Wave [place] -6 degrees MUSE ECG Diagnosis Sinus rhythm with 1st degree AV block MUSE ECG Diagnosis Incomplete right bundle branch block MUSE ECG Diagnosis Abnormal ECG MUSE ECG Diagnosis MUSE ECG Diagnosis MUSE ECG Diagnosis Confirmed by Dakota Tracey ([id number]) on 02/02/2025 3:30:48 PM MUSE ECG 02/02/2025 2:10 PM EDT 02/02/2025 3:30 PM EDT Alessio CORONA ECG ORDERABLES Final Result Performing Organization Address [facility] Co de Phone Number MUSE ECG * (ABNORMAL) Troponin now and 120 min (02/02/2025 2:10 PM EDT) Troponin T, High Sensitivity, 0 Hour 24(H) <19 ng/L 02/02/2025 2:54 PM EDT [facility] Blood Venous blood specimen / Unknown Venipuncture / Unknown 02/02/2025 2:10 PM EDT 02/02/2025 2:34 PM EDT us Alessio CORONA LAB BLOOD ORDERABLES Final Re sult [facility] [address] [place] [address] * (ABNORMAL) Bacterial ID Gram Positive (02/02/2025 2:10 PM EDT) [facility] Staphylococcus Result Detected( A) Not Detected 02/03/2025 7:22 AM EDT [facility] Comment:Assess if contaminan t or clinically relevant pathogen. Consider clinical stability and immune status of patient. Staphylococcus epidermidis Result Detected( A) Not Detected 02/03/2025 7:22 AM EDT [facility] Comment:Assess if contaminan t or clinically relevant pathogen. Consider clinical stability and immune status of patient. MECA Result Detected( A) Not Detected 02/03/2025 7:22 AM EDT [facility] Blood Venous blood specimen / Unknown Venipuncture / Unknown 02/02/2025 2:10 PM EDT 02/02/2025 2:33 PM EDT Narrative [facility] - 02/03/2025 7:22 AM [...] for all analytes tested. Alessio [place] LAB MICROBIOLOGY - GENERAL OR DERABLES Final Result Performing Organization Address [facility] Co de Phone Number [facility] [address] [place] [address] * (ABNORMAL) Sed rate, automated (02/02/2025 2:10 PM EDT) Pathologist [facility] Sedimentation Rate 106(H) <20 mm/hr 2024 3:25 PM EDT [facility] Blood Venous blood specimen / Unknown Venipuncture / Unknown 02/02/2025 2:10 PM EDT 02/02/2025 2:34 PM EDT Alessio N [place] LAB BLOOD ORDERABLES Final Re sult Performing Organization Address [facility] de Phone Number [facility] [address] [place] [address] * (ABNORMAL) C-reactive protein (02/02/2025 2:10 PM EDT) [facility] CRP, Plasma 288.0(H) <=8.0 mg/L 02/02/2025 2:54 PM EDT [facility] Blood Venous blood specimen / Unknown Venipuncture / Unknown 02/02/2025 2:10 PM EDT 02/02/2025 2:34 PM EDT Narrative [facility]ALTH[facility]ARE [facility] - 02/02/2025 2:54 PM EDT This CRP test is appropriate for assessment of infection, systemic inflammation and/or tissue injury. To assess cardiovascular disease risk order high sensitivity CRP (CRPH). Alessio N [place] LAB BLOOD ORDERABLES Final Re sult Performing Organization Address [facility] Co de Phone Number [facility] [address] [place] [address] * (ABNORMAL) CBC (01/29/2025 1:49 AM EDT) WBC Count 10.61(H) 3.70 - 10.30 10*3/uL LAB HEMATOLOGY METHOD 01/29/2025 3:20 AM EDT [facility] RBC Count 3.41(L) 4.60 - 6.10 10*6/uL LAB HEMATOLOGY METHOD 01/29/2025 3:20 AM EDT [facility] HGB 9.8(L) 13.7 - 17.5 g/dL LAB HEMATOLOGY METHOD 01/29/2025 3:20 AM EDT [facility] HCT 30.5(L) 40.0 - 51.0 % LAB HEMATOLOGY METHOD 01/29/2025 3:20 AM EDT [facility] Platelet Count 292 155 - 369 10*3/uL LAB HEMATOLOGY METHOD 01/29/2025 3:20 AM EDT [facility] MCV 89 79 - 98 fL LAB HEMATOLOGY METHOD 01/29/2025 3:20 AM EDT [facility] MCH 28.7 26.0 - 32.0 pg LAB HEMATOLOGY METHOD 01/29/2025 3:20 AM EDT [facility] MCHC 32.1 30.7 - 35.5 g/dL LAB HEMATOLOGY METHOD 01/29/2025 3:20 AM EDT [facility] RDW 12.9 11.5 - 14.5 % LAB HEMATOLOGY METHOD 01/29/2025 3:20 AM EDT [facility] MPV 8.8 8.8 - 12.5 fL LAB HEMATOLOGY METHOD 01/29/2025 3:20 AM EDT [facility] nRBC 0.0 <=0.0 per 100 WBCs LAB HEMATOLOGY METHOD 01/29/2025 3:20 AM EDT [facility] Blood Venous blood specimen / Unknown Venipuncture / Unknown 01/29/2025 1:49 AM EDT 01/29/2025 3:12 AM EDT us Miranda Salamanca MANAGER STYLE LAB BLOOD ORDERABLES Final Re sult [facility] [address] [place] [address] * UT AN ELECTIVE ENDOTRACHEAL AIRWAY, PB ANESTHESIA PLACEHOLDER (01/28/2025 11:54 AM EDT) Narrative Ja Alexandre, SVETLANA - 01/28/2025 11:54 AM EDT Ja Alexandre CRNA 01/28/2025 12:04 PM Airway Date/Time: 01/28/2025 11:54 AM Reason: elective Airway not difficult General Information and Staff Patient location during procedure: OR CAPACITOR TESTER: Ja Alexandre CRNA Performed: CAPACITOR TESTER Patient Condition Indications for airway management: anesthesia [...] 6.2(H) <5.7 % 12/17/2024 7:08 PM EDT [facility] Blood Venous blood specimen / Unknown Venipuncture / Unknown 12/17/2024 2:49 PM EDT 12/17/2024 2:49 PM EDT Narrative [facility] - 12/17/2024 7:08 PM EDT HA1C Interpretive Data: Diagnosis of Diabetes: Diabetic > or = 6.5% Pre-diabetic 5.7 to 6.4% Non-diabetic < or = 5.6% Glycemic Targets for Type I and Type II Diabetics: Non- Adults <7.0% Adults <6.0% Children and Adolescents <7.5% Source: [place]. Standards of medical care in diabetes,2017. Diabetes Care.2017:40 (suppl 1):S1-S135. HbA1c assay performed by an ion-exchange chromatography method that is certified traceable to the DCCT. us Leon Anne MD LAB BLOOD ORDERABLES Final R esult [facility] [address] [place] [address] from Last 3 Months or Most Recently Relevant to Health Maintenance Additional Health Concerns Active Problems Noted Date Diagnosed Date Autogenerated Problem 01/21/2025 Insurance [facility] MEDIC[facility] Advance Directives Documents on File Type Date Recorded Patient Trimmer Sorter Expl anation Advance Directives and Livin g Will 01/30/2025 1:47 PM Power of Cold Working Supervisor 01/30/2025 1:47 PM Advance Directives and Livin g Will 02/02/2025 Power of Cold Working Supervisor 02/02/2025 * DNR/DNI (Latest Code Status on [...] updated to appropriate status: Yes Care Teams Mold Yard Worker Relationship Specialty Start Date End Date Nader Fields MD [address] [facility] [address] [place] [address] PCP - General 06/16/24
== END 2025-04-22 23:59 | disposition home or self-care (01) ==
LOC: LAB.DROPOF 04-23 10:28
PROVIDERS: PCP Internal Medicine; Visit Provider Internal Medicine
DX: I12.9 Hypertensive chronic kidney disease with stage 1 through stage 4 chronic kidney disease, or unspecified chronic kidney disease (principal); N18.9 Chronic kidney disease, unspecified; N17.9 Acute kidney failure, unspecified; E86.0 Dehydration; D50.9 Iron deficiency anemia, unspecified
CPT/HCPCS: 80048; 85025

== ENCOUNTER 2025-06-30 14:57 | Outpatient (CLI) | payer MEDICARE, SELFPAY ==
--- OUTSIDE RECORDS SUMMARY | 2025-06-18 12:35 | XMS_ITS | Encounter Summary ---
Author Organization [facility] Address [address] [place] [address] Care Team Providers Care Administrative Executive Name Role Phone Nader Fields MD Primary Care Provider [phone] Encounter Details Date Type Department Care Team (Latest Contact Info) Description 06/18/2025 12:35 PM EDT - 06/18/2025 2:04 PM EDT Hospital Encounter Medical Office Building Radiology [address] [place] [address] S/P total knee arthroplasty, right [...] any time in the past 12 m [facility], were you homeless or living in a senior care (including now)? No 02/03/2025 Utilities Answer Date Recorded In the past 12 months has th e [employer], gas, oil, or water company threatened to [...] 6 hours as needed for pain. Under [place] law, monthly prescriptions (30 days) can be refilled at 25 days and three-month prescriptions (90 days) at 80 days. Please contact the insurance company with questions if refills are denied. 02/07/2025 clobetasol (Temovate) 0.05 % external solution APPLY TOPICALLY TO SCALP TWO TIMES DAILY 06/02/2025 cyanocobalamin 1000 MCG tablet Take 1 tablet by mouth daily. EQ Pain Reliever Ex St 500 MG tablet TAKE 1 TABLET BY MOUTH EVERY 6 HOURS NEEDED FOR PAIN PAIN SCALE SCORE OF 1-3 06/09/2025 famotidine (Pepcid) 20 MG tablet Take 1 [...] symptoms continue 1 each 01/29/2025 nystatin (Mycostatin) 232290 UNIT/GM powder Apply to skin folds twice daily 60 g 01/29/2025 nystatin (Mycostatin) 605047 UNIT/GM powder Apply to skin folds twice [...] Upcoming Encounters Date Type Department Care Team (Latest Contact Info) Description 07/03/2025 3:30 PM EDT [facility] [address] [place] [address] 07/09/2025 12:30 PM EDT Appointment [facility] Inter[facility] Radiology [address] [place] [address] 07/31/2025 12:20 PM EST Office Visit [facility] [address] [place] [address] Saroj Anderson MD [address] [place] [address] 08/12/2025 1:55 PM EST Hospital Encounter [facility] Operating Room [address] [place] [address] Leon Anne MD [address] [place] [address] 08/12/2025 1:55 PM EST - 08/12/2025 4:25 PM EST Surgery [facility] Operating Room [address] [place] [address] Leon Anne MD [address] [place] [address] ARTHROPLASTY, KNEE, TOTAL, USING COMPUTER-ASSISTED NAVIGATION [00627 (CPT )] 08/28/2025 11:00 AM EST Office Visit Medical Office Building Surgery [facility] [address] [facility] [place] [address] Liya Soto PA [address] [place] [address] 10/01/2025 11:30 AM EST Office Visit Medical Office Building Surgery [facility] [address] [facility] [place] [address] Leon Anne MD [address] [place] [address] Scheduled Procedures Name Priority Associated Diagnoses Date/Ti me ARTHROPLASTY, KNEE, TOTAL, USING COMPUTER-ASSISTED NAVIGATION Arthritis of left knee 08/12/2025 1:55 PM EST documented as of this encounter Goals Goal Patient Goal Type Associated Problems Recent Progress Patient-Stated? Author Autogenerat ed Goal Care Plan Autogenerated Problem No Kallie Villa Autogenerat ed Goal Care Plan Autogenerated Problem No Kallie Villa documented as of this encounter Procedures Procedure Name Priority Date/Time Associated Diagnosis Comments XR KNEE RIGHT 1 OR 2 VIEWS Routine 06/18/2025 12:43 PM EDT S/P total knee arthroplasty, right documented in this encounter Results * 6-Week Post-Op: XR Knee (AP Standing / Lateral Standing) (06/18/2025 12:43 PM EDT) Anatomical Region Laterality Modality Lower Extremities, Knee Right Digital Radiography Impressions 06/18/2025 12:55 PM EDT Unchanged findings of total knee arthroplasty. CRITICAL RESULT: No. COMMUNICATION: Per this written report. Drafted by Scott Hightower MD on 06/18/2025 12:53 PM Final report signed by Scott Hightower MD on 06/18/2025 12:55 PM Narrative 06/18/2025 12:55 PM EDT CLINICAL INDICATION: post-op TECHNIQUE: XR KNEE RIGHT 1 OR 2 VIEWS COMPARISON: None. FINDINGS: 2 views of the right knee show total knee arthroplasty without periprosthetic lucency or gas in the soft tissues. Unchanged anterior knee soft tissue swelling. Procedure Note Scott Hightower MD - 06/18/2025 CLINICAL INDICATION: post-op TECHNIQUE: XR KNEE RIGHT 1 OR 2 VIEWS COMPARISON: None. FINDINGS: 2 views of the right knee show total knee arthroplasty withoutperiprosthetic lucency or gas in the soft tissues. Unchanged anterior kneesoft tissue swelling. IMPRESSION: Unchanged findings of total knee arthroplasty. CRITICAL RESULT: No. COMMUNICATION: Per this written report. Drafted by Scott Hightower MD on 06/18/2025 12:53 PM Final report signed by Scott Hightower MD on 06/18/2025 12:55 PM us Leon Anne MD IMG XR PROCEDURES Final Resu lt documented in this encounter Visit Diagnoses Diagnosis S/P total knee arthroplasty, right Arthritis of left knee- Primary Arthritis of left knee documented in this encounter Additional Health Concerns Active Problems Noted Date Diagnosed Date Autogenerated Problem 01/21/2025 Autogenerated Problem 06/18/2025 Assessment Noted Time PHQ-9 Depression Total Score: 0 10/02/19 1:29 PM EST A fall risk assessment has been complete d for the patient 06/18/2025 12:48 PM EDT A Body Mass Index follow-up plan has been documented for the patient 06/18/2025 12:49 PM EDT documented as of this encounter Care Teams Administrative Executive Relationship Specialty Start Date End Date Nader Fields MD [address] [place] [address] [address] [place] [address] PCP - General 06/16/24 documented as of this encounter
--- OUTSIDE RECORDS SUMMARY | 2025-06-18 12:40 | XMS_ITS | Encounter Summary ---
Author Organization [facility] Address [address] [place] [address] Care Team Providers Care Epic Director Name Role Phone Nader Fields MD Primary Care Provider [phone] Reason for Visit * Reason Comments Post-op Pre-op Visit Encounter Details Date Type Department Care Team ([facility] st Contact Info) Description 06/18/2025 12:40 PM EDT Office Visit Medical Office Building Surgery Spine & Joint [address] [facility], [address] [place] [address] Leon Anne MD [address] [facility] [address] [place] [address] S/P total knee arthroplasty, right (Primary Dx); Left knee pain, unspecified chronicity; Arthritis of left knee Social History Tobacco Use Types Packs/Day Years [...] the past 12 months has th e [employer], gas, oil, or water [employer] threatened to shut off services in your home? No 02/03/2025 Sex and Gender Information Value Date Recorded Sex Assigned at Not on file Legal Sex Male 10:03 AM EDT Gender Identity Not on file Sexual Orientation Not on file documented as of this encounter Last Filed Vital Signs Vital Sign Reading Time Taken Comments Blood Pressure 133/81 06/18/2025 12:48 PM EDT Pulse 78 06/18/2025 12:48 PM EDT Temperature - - Respiratory Rate - - Oxygen Saturation 95% 06/18/2025 12:48 PM EDT Inhaled Oxygen Concentration - - Weight 122 kg (270 lb) 06/18/2025 12:48 PM EDT Height 182.9 cm (6') 06/18/2025 12:48 PM EDT Body Mass Index 36.62 06/18/2025 12:48 PM EDT documented in this encounter Miscellaneous Notes * Progress Notes - Leon Anne MD - 06/18/2025 12:40 PM EDT Images from the original note were not included. Subjective: Preet Montoya is a 74 y.o. y/o male who comes in today for left knee pain as well as f/u of R TKA. He had a R TKA on 01/28/25. His recovering was stalled initially due to PE and DVT development after surgery. He states that he has continued with anti-coagulation treatment. He states that his right knee has been doing well since surgery and that he has continued PT 3x a week. He states that he does have to use a walker to ambulate. For the left knee, the patient localizes the pain/problem to the anterior and medial aspect of the left knee. The patient has had the problem for several years. The problem began without any known injury or trauma to the area. The patient reports the pain as Aching and Sharp. The patient reports the pain as getting worse and more unstable. The pain/problem isbetter with rest. The pain/problem is worse with walking and any activity. The pain is Continuous. The following treatments have been attempted: Anti-inflammatories and Physical Therapy. Past Medical History[1] Surgical History[2] Social History Socioeconomic History Marital status: Spouse name: Not on file Number of children: Not on file Years of education: Not on file Highest education level: Not on file Occupational History Not on file Tobacco Use Smoking status: Never Smokeless tobacco: Never Vaping Use Vaping status: Never Used Substance and Sexual Activity Alcohol use: Never Drug use: Never Sexual activity: Defer Other Topics Concern Not on file Social History Narrative Not on file Social Drivers of Health Financial Resource Strain: Not on file Food Insecurity: No Food Insecurity (02/03/2025) Hunger Vital Sign Worried About Running Out of Food in the Last Year: Never true Ran Out of Food in the Last Year: Never true Transportation Needs: No Transportation Needs (02/03/2025) PRAPARE - Transportation Lack of Transportation (Medical): No Lack of Transportation (Non-Medical): No Physical Activity: Not on file Stress: Not on file Social Connections: Unknown (07/04/2023) Received from [facility] Family and Community Support Help with Day-to-Day Activities: Not on file Lonely or Isolated: Not on file Intimate Partner Violence: Not At Risk (02/03/2025) Humiliation, Afraid, Rape, and Kick questionnaire Fear of Current or Ex-Partner: No Emotionally Abused: No Physically Abused: No Sexually Abused: No Housing Stability: Unknown (02/03/2025) Housing Stability Vital Sign Unable to Pay for Housing in the Last Year: No Number of Times Moved in the Last Year: Not on file Homeless in the Last Year: No Allergies[3] Current Medications[4] I have reviewed and updated the patient's past medical history, past surgical history, social history, and family history. This is located both in the patient's note and their intake form that has been scanned into the medical record for today's visit. 14 point review of systems was reviewed per signed intake sheet and is otherwise negative except asnoted above. Objective: Body mass index is 36.62 kg/m??. 02/12/2025 10:22 AM 03/17/2025 11:58 AM 03/18/2025 7:42 PM 03/25/2025 2:40 PM 03/25/2025 2:57 PM 03/25/2025 4:28 PM 06/18/2025 12:48 PM Vitals Systolic 107 72 97 72 69 93 133 Diastolic 76 51 58 49 43 61 81 Heart Rate 93 97 76 105 78 Temp 36.6 C 36.8 C Resp 19 14 Height (cm) 182.9 cm 182.9 cm 182.9 cm 182.9 cm Weight (kg) 135.626 kg 136 kg 127.461 kg 122.471 kg BMI 40.55 kg/m2 40.66 kg/m2 38.11 kg/m2 36.62 kg/m2 BSA (m2) 2.63 m2 2.63 m2 2.54 m2 2.49 m2 Visit Report Report Report Report Report Report Report Knee Pain location: Medial Skin: Normal ROM: 10-100 Alignment: Varus Effusion: Moderate Limp: e Quadriceps strength level: Fair My independent interpretation of radiographic testing shows: bone on bone articulation with loss ofjoint space, subchondral sclerosis, cystic changes 6-Week Post-Op: XR Knee (AP Standing / Lateral Standing) Result Date: 06/18/2025 Unchanged findings of total knee arthroplasty. CRITICAL RESULT: No. COMMUNICATION: Per this writtenreport. Drafted by Scott Hightower MD on 06/18/2025 12:53 PM Final report signed by Scott Hightower MD on 06/18/2025 12:55 PM Notes reviewed: ENT Results of tests reviewed: BMP Assessment and plan: S/P total knee arthroplasty, right Left knee pain, unspecified chronicity Arthritis of left knee Orders Placed This Encounter 6-Week Post-Op: XR Knee (AP Standing / Lateral Standing) New Patient: XR Knee (Lateral / [place] / Tunnel / AP Standing with Marker) XR Hip-Ankle Left Joint Survey XR Knee Left 1 or 2 Views CBC W/O Differential Basic metabolic panel Albumin, Plasma Hemoglobin A1c Case Request Operating Room: ARTHROPLASTY, KNEE, TOTAL No follow-ups on file. Patient has evidence of chronic end-stage arthritis of the left knee with exacerbation. Based on discussion with the patient as well as review of the patient???s previous medical records and notes, the patient has now failed previous nonoperative treatment with activity modification, anti-inflammatories, corticosteroid injections, and assistive devices. Upon personal review of the preoperative imaging, the radiographs demonstrate severe joint space narrowing with subchondral sclerosis and reactive osteophytes. Risks complications and benefits of the procedure have now been discussed preoperatively to include but not limited to infection, bleeding, anesthesia risk, damage to neurovascular str uctures, osteolysis, aseptic loosening, instability, anterior knee pain, continued pain, iatrogenicfracture, dislocation, need for future surgery including the potential for amputation, DVT, ND, stroke and . The patient is felt to be an appropriate candidate for total knee arthroplasty. The patient will require preoperative medical clearance joint arthroplasty education. Risk stratificationhas demonstrated patient will be treated with chemical and mechanical DVT prophylaxis postoperatively. We will have the patient meet with the decorative greens cutter today to try and find a date and time for the surgery. We will also get new xrays today to evaluate for the long leg alignment to aid in preoperative planning for proper implant placement. We have also ordered preoperative laboratory workup to include CBC, BMP, Vitamin D Level, and Albumin to help with medical optimization prior to surgery. Given his previous blood clot we will need to plan for a IVC filter. He has impaired renal functionand thus we will need to stop his Eliquis even earlier to avoid challenge with seen what we are doing certain during surgery as well as large chance for hematoma at the time of surgery. Normally we would have the patient has stopped 48 hours prior to surgery but with his impaired renal function want him minimum of 4-5 days prior to surgery and thus will plan to use the filter to prevent PE. Rx management per plan. [1] Past Medical History: Diagnosis Date Diabetes (CMS/HCC) GERD (gastroesophageal reflux disease) HLD (hyperlipidemia) HTN (hypertension) [2] Past Surgical History: Procedure Laterality Date KNEE ARTHROSCOPY Right [3] Allergies Allergen Reactions Tetanus Toxoids Itching [4] Current Outpatient Medications Medication Sig Dispense Refill acetaminophen (Tylenol) 325 MG tablet Take 2 tablets by mouth every 6 hours as needed for pain. Under [place] law, monthly prescriptions (30 days) can be refilled at 25 days and three-month prescriptions (90 days) at 80 days. Please contact the insurance company with questions if refills are denied. clobetasol (Temovate) 0.05 % external solution APPLY TOPICALLY TO SCALP TWO TIMES DAILY cyanocobalamin 1000 MCG tablet Take 1 tablet by mouth daily. EQ Pain Reliever Ex St 500 MG tablet TAKE 1 TABLET BY MOUTH EVERY 6 HOURS NEEDED FOR PAIN PAIN SCALE SCORE OF 1-3 famotidine (Pepcid) 20 MG tablet Take 1 tablet by mouth daily. gabapentin (Neurontin) 100 MG capsule Take 1 capsule by mouth 3 times a day. If this medication makes you drowsy you may take it only at bedtime 30 capsule 0 metFORMIN (Glucophage) 1000 MG tablet Take 1 tablet by mouth 2 times a day with meals. methocarbamol (Robaxin) 750 MG tablet Take 1 tablet by mouth every 6 hours. naloxone (Narcan) 4 mg/0.1 mL nasal spray 1. Give 1 spray in nostril for no/slow breathing or cannot wake after opioid use 2. Call 911 3. Repeat in other nostril if symptoms continue 1 each 0 nystatin (Mycostatin) 812658 UNIT/GM powder Apply to skin folds twice daily 60 g 0 nystatin (Mycostatin) 558523 UNIT/GM powder Apply to skin folds twice daily. 60 g pioglitazone (Actos) 15 MG tablet Take 1 tablet by mouth daily. pravastatin (Pravachol) 20 MG tablet Take 1 tablet by mouth daily. semaglutide 8 MG/3ML solution pen-injector Inject 2 mg under the skin 1 time per week. senna (Senokot) 8.6 MG tablet Take 1 tablet by mouth nightly. amLODIPine (Norvasc) 5 MG tablet Take 1 tablet by mouth daily. apixaban (Eliquis) 5 MG tablet Take 1 tablet by mouth 2 times a day. 120 tablet 0 gabapentin (Neurontin) 100 MG capsule Take 1 capsule by mouth 3 times a day for 3 days. (Patient not taking: Reported on 06/18/2025) 9 capsule 0 lisinopril 20 MG tablet Take 1 tablet by mouth daily. (Patient not taking: Reported on 06/18/2025) polyethylene glycol (Miralax) 17 g packet Take 17 g by mouth 2 times a day. (Patient not taking: Reported on 06/18/2025) No current facility-administered medications for this visit. * Progress Notes - Lauren Haas RN - 06/18/2025 12:40 PM EDT Patient was provided with Total Joint Education Packet. Patient was educated using information provided in packet. Patient instructed to schedule PT appointment 7 days after surgery date and to schedule prior to having procedure. [facility] information provided. All questions answered. Contact information for Joint Replacement Nurse given for patient to call should any questions arise before or after surgery. Pt then met with decorative greens cutter to arrange surgery and Joint Replacement Class date. Reviewed patients allergies, medications, medical and surgical history, and pharmacy verified. Instructed patient to stop NSAIDS, ASA, and OTC vitamins & supplements 1 week prior to procedure. Instructed to ensure any hormone replacement, if taken, is stopped 1 month prior to surgery. Also any dermatological procedures or dental work need to be performed 1 month prior to procedure. Patient instructed to review educational material and write down any questions or concerns in the notes section and bring the packet to the hospital and all appointments. Patient stated understanding. IPSS: 16. Experienced POUR after last surgery. Flomax sent per protocol. Denies injection. Patient will stay overnight.Patient aware IVC Filter needed. Does the clinical care team anticipate the patient's continued opioid usage until surgery results in the patient having been taking opioid for at least 90 days by the time of their procedure?: Yes documented in this encounter Plan of Treatment Upcoming Encounters Date Type Department Care Team (Latest Contact Info) Description 07/03/2025 3:30 PM EDT Office Visit [facility] Vascular Interventional Radiology [address] [place] [address] 07/09/2025 12:30 PM EDT Appointment [facility] Interventional Radiology [address] [place] [address] 07/31/2025 12:20 PM EST Office Visit [facility] [address] [facility] [address] [place] [address] Saroj Anderson MD [address] [place] [address] 08/12/2025 1:55 PM EST Hospital Encounter [facility] Operating Room [address] [place] [address] Leon Anne MD [address] [address] 08/12/2025 1:55 PM EST - 08/12/2025 4:25 PM EST Surgery [facility] Operating Room [address] [place] [address] Leon Anne MD [address] [place] [address] ARTHROPLASTY, KNEE, TOTAL, USING COMPUTER-ASSISTED NAVIGATION [72347 (CPT )] 08/28/2025 11:00 AM EST Office Visit Medical Office Building Surgery Spine & Joint [address] , [address] [place] [address] Liya Soto PA [address] [place] [address] 10/01/2025 11:30 AM EST Office Visit Medical Office Building Surgery Spine & Joint [address], [address] [place] [address] Leon Anne MD [address] [facility] [address] [place] [address] Scheduled Orders Name Type Priority Associated Diagnoses Orde r Schedule CBC W/O Differential Lab Routine S/P total knee arthroplasty, right Left knee pain, unspecified chronicity Arthritis of left knee 1 Occurrences starting 06/18/2025 until 06/18/2026 Basic metabolic panel Lab Routine S/P total knee arthroplasty, right Left knee pain, unspecified chronicity Arthritis of left knee 1 Occurrences starting 06/18/2025 until 06/18/2026 Albumin, Plasma Lab Routine S/P total knee arthroplasty, right Left knee pain, unspecified chronicity Arthritis of left knee 1 Occurrences starting 06/18/2025 until 06/18/2026 Hemoglobin A1c Lab Routine S/P total knee arthroplasty, right Left knee pain, unspecified chronicity Arthritis of left knee 1 Occurrences starting 06/18/2025 until 06/18/2026 Scheduled Procedures Name Priority Associated Diagnoses Date/Ti [...] of this encounter Results * XR Knee Left 1 or 2 Views (06/18/2025 2:33 PM EDT) Anatomical Region Laterality Modality Lower Extremities, Knee Left Digital Radiography Impressions 06/18/2025 2:43 PM EDT No acute osseous finding. Severe osteoarthrosis of the knee as described above. CRITICAL RESULT: No. COMMUNICATION: Per this written report. Drafted by Alyssa Bueno MD on 06/18/2025 2:41 PM Final report signed by Alyssa Bueno MD on 06/18/2025 2:43 PM Narrative 06/18/2025 2:43 PM EDT CLINICAL INDICATION: pain TECHNIQUE: XR HIP-ANKLE LEFT JOINT SURVEY, XR KNEE LEFT 1 OR 2 VIEWS COMPARISON: Left knee radiographs from 07/01/2024 FINDINGS: No acute fracture or dislocation. Severe medial compartment narrowing with significant tricompartmental osteophytosis. No suprapatellar effusion. Minimal anterior knee edema. Vascular calcifications. Valgus granulation the knee joint is best evaluated on the lower extremity survey image. The hip and ankle joints appear grossly intact. Procedure Note Alyssa Bueno MD - 06/18/2025 CLINICAL INDICATION: pain TECHNIQUE: XR HIP-ANKLE LEFT JOINT SURVEY, XR KNEE LEFT 1 OR 2 VIEWS COMPARISON: Left knee radiographs from 07/01/2024 FINDINGS: No acute fracture or dislocation. Severe medial compartment narrowing withsignificant tricompartmental osteophytosis. No suprapatellar effusion.Minimal anterior knee edema. Vascular calcifications. Valgus granulation the knee joint is best evaluated on the lower extremitysurvey image. The hip and ankle joints appear grossly intact. IMPRESSION: No acute osseous finding. Severe osteoarthrosis of the knee as describedabove. CRITICAL RESULT: No. COMMUNICATION: Per this written report. Drafted by Alyssa Bueno MD on 06/18/2025 2:41 PM Final report signed by Alyssa Bueno MD on 06/18/2025 2:43 PM Leon Anne MD IMG XR PROCEDURES Final Resu lt * XR Hip-Ankle Left Joint Survey (06/18/2025 2:33 PM EDT) Anatomical Region Laterality Modality Lower Extremities Left Digital Radiog shadi Impressions 06/18/2025 2:43 PM EDT No acute osseous finding. Severe osteoarthrosis of the knee as described above. CRITICAL RESULT: No. COMMUNICATION: Per this written report. Drafted by Alyssa Bueno MD on 06/18/2025 2:41 PM Final report signed by Alyssa Bueno MD on 06/18/2025 2:43 PM Narrative 06/18/2025 2:43 PM EDT CLINICAL INDICATION: pain TECHNIQUE: XR HIP-ANKLE LEFT JOINT SURVEY, XR KNEE LEFT 1 OR 2 VIEWS COMPARISON: Left knee radiographs from 07/01/2024 FINDINGS: No acute fracture or dislocation. Severe medial compartment narrowing with significant tricompartmental osteophytosis. No suprapatellar effusion. Minimal anterior knee edema. Vascular calcifications. Valgus granulation the knee joint is best evaluated on the lower extremity survey image. The hip and ankle joints appear grossly intact. Procedure Note Alyssa Bueno MD - 06/18/2025 CLINICAL INDICATION: pain TECHNIQUE: XR HIP-ANKLE LEFT JOINT SURVEY, XR KNEE LEFT 1 OR 2 VIEWS COMPARISON: Left knee radiographs from 07/01/2024 FINDINGS: No acute fracture or dislocation. Severe medial compartment narrowing withsignificant tricompartmental osteophytosis. No suprapatellar effusion.Minimal anterior knee edema. Vascular calcifications. Valgus granulation the knee joint is best evaluated on the lower extremitysurvey image. The hip and ankle joints appear grossly intact. IMPRESSION: No acute osseous finding. Severe osteoarthrosis of the knee as describedabove. CRITICAL RESULT: No. COMMUNICATION: Per this written report. Drafted by Alyssa Bueno MD on 06/18/2025 2:41 PM Final report signed by Alyssa Bueno MD on 06/18/2025 2:43 PM Leon Anne MD IMG XR PROCEDURES Final Resu lt * 6-Week Post-Op: XR Knee (AP Standing [...] Scott Hightower MD on 06/18/2025 12:55 PM Leon Anne MD IMG XR PROCEDURES Final Resu lt documented in this encounter Visit Diagnoses Diagnosis S/P total knee arthroplasty, right- Primary Left knee pain, unspecified chronicity Arthritis of left knee S/P total knee arthroplasty, right Arthritis of left knee- Primary Left knee pain, unspecified chronicity Arthritis of left knee Arthritis of left knee documented in this [...] documented as of this encounter Care Teams Epic Director Relationship Specialty Start Date End Date Nader Fields MD [address] [place] [address] [address] [place] [address] PCP - General 06/16/24 documented as of this encounter
--- OUTSIDE RECORDS SUMMARY | 2025-06-18 14:05 | XMS_ITS | Encounter Summary ---
Author Organization Healthcare Address [address] [place] [address] Care Team Providers Care Medical Laboratory Technicians Name Role Phone Nader Fields MD Primary Care Provider [phone] Encounter Details Date Type Department Care Team (Latest Contact Info) Description 06/18/2025 2:05 PM EDT - 06/18/2025 11:59 PM EDT Hospital Encounter Medical Office Building Radiology [address] [place] [address] Left knee pain, unspecified chronicity; Arthritis of left knee Discharge Disposition: Home or Self Care Social [...] any time in the past 12 m [facility], were you homeless or living in a prison (including now)? No 02/03/2025 Utilities Answer Date Recorded In the past 12 months has th e [employer], gas, oil, or water company threatened to [...] symptoms continue 1 each 01/29/2025 nystatin (Mycostatin) 768053 UNIT/GM powder Apply to skin folds twice daily 60 g 01/29/2025 nystatin (Mycostatin) 163959 UNIT/GM powder Apply to skin folds twice [...] Take 1 tablet by mouth nightly. 02/07/2025 tamsulosin (Flomax) 0.4 MG 24 hr capsule Take one capsule daily for 5 days prior to surgery. On the day of surgery, take 2 capsules. The day after surgery, take one capsule. 8 capsule 06/18/2025 documented as of this encounter Plan of Treatment Upcoming Encounters Date Type Department Care Team (Latest Contact Info) Description 07/03/2025 3:30 PM EDT Office Visit [facility] Vascular Interventional Radiology [address] [place] [address] 07/09/2025 12:30 PM EDT Appointment [facility] Interventional Radiology [address] [place] [address] 07/31/2025 12:20 PM EST Office Visit [facility] [address] [place] [address] Saroj Anderson MD [address] [place] [address] 08/12/2025 1:55 PM EST Hospital Encounter [facility] Operating Room [address] [place] [address] Leon Anne MD [address] [place] [address] 08/12/2025 1:55 PM EST - 08/12/2025 4:25 PM EST Surgery [facility] Operating Room [address] [place] [address] Leon Anne MD [address] [place] [address] ARTHROPLASTY, KNEE, TOTAL, USING COMPUTER-ASSISTED NAVIGATION [84084 (CPT )] 08/28/2025 11:00 AM EST Office Visit Medical Office Building Surgery Spine & Joint [address] [facility], [address] [place] [address] Liya Soto PA [address] [place] [address] 10/01/2025 11:30 AM EST Office Visit Medical Office Building Surgery Spine & Joint [address] [facility], [address] [place] [address] Leon Anne MD [address] [place] [address] Scheduled Procedures Name Priority Associated [...] Name Priority Date/Time Associated Diagnosis Comments XR HIP-ANKLE LEFT JOINT SURVEY Routine 06/18/2025 2:33 PM EDT Arthritis of left knee XR KNEE LEFT 1 OR 2 VIEWS Routine 06/18/2025 2:33 PM EDT Arthritis of left knee documented in this encounter Results * XR Knee Left [...] Alyssa Bueno MD on 06/18/2025 2:43 PM us Leon Anne MD IMG XR [...] documented in this encounter Visit Diagnoses Diagnosis Arthritis of left knee- Primary Left knee [...] documented as of this encounter Care Teams Medical Laboratory Technicians Relationship Specialty Start Date End Date Nader Fields MD [address] [place] [address] [address] [place] [address] PCP - General 06/16/24 documented as of this encounter
--- OUTSIDE RECORDS SUMMARY | 2025-06-30 14:59 | XMS_ITS | Encounter Summary ---
Author Organization [facility] Address [address] [place] [address] Care Team Providers Care Maintenance Machine Repairer Name Role Phone Nader Fields MD Primary Care Provider Encounter Details Date Type Department Care Team (Late st Contact Info) Description 04/03/2024 Orders Only External Location [address] [place] [address] Kevin Zheng, DO [address] [place] [address] Social History Tobacco Use Types Packs/Day Years [...] Description 07/03/2025 3:30 PM EDT Office Visit [place] [facility] [address] [place] [address] 07/09/2025 12:30 PM EDT Appointment PAV A Interventional Radiology [address] [place] [address] 07/31/2025 12:20 PM EST Office Visit [facility] [address] [place] [address] Saroj Anderson MD [address] [place] [address] 08/12/2025 1:55 PM EST Hospital Encounter PAV S Operating Room [address] [place] [address] Leon Anne MD [address] [place] [address] 08/12/2025 1:55 PM EST - 08/12/2025 4:25 PM EST Surgery P[facility] S Operating Room [address] [place] [address] Leon Anne MD [address] [place] [address] ARTHROPLASTY, KNEE, TOTAL, USING COMPUTER-ASSISTED NAVIGATION [62403 (CPT )] 08/28/2025 11:00 AM EST Office Visit Medical Office Building [facility] [address], [address] [place] [address] Liya Soto PA [address] [place] [address] 10/01/2025 11:30 AM EST Office Visit Medical Office Building [facility] [address], [address] [place] [address] Leon Anne MD [address] [place] [address] Scheduled Procedures Name Priority Associated Diagnoses Date/Ti me ARTHROPLASTY, KNEE, TOTAL, USING COMPUTER-ASSISTED NAVIGATION Arthritis of left knee 08/12/2025 1:55 PM EST documented as of this encounter Procedures Procedure Name Priority Date/Time Associated Diagnosis Comments XR OUTSIDE IMAGES 04/03/2024 8:59 AM EDT documented in this encounter Results * XR OUTSIDE IMAGES (04/03/2024 8:59 AM EDT) Anatomical Region Laterality Modality Radiographic Irish ging 04/03/2024 8:59 AM EDT Kevin Zheng DO IMG XR PROCEDURES Final Result documented in this encounter Visit Diagnoses Not on filedocumented in this encounter Additional Health Concerns Infection Onset Date Last Indicated Resolved Time Respiratory Rule-Out 02/03/2025 02/03/2025 025 1:34 PM EDT documented as of this encounter Care Teams Maintenance Machine Repairer Relationship Specialty Start Date End Date Nader Fields MD [address] [place] [address] [address] [place] [address] PCP - General 06/16/24 documented as of this encounter
--- OUTSIDE RECORDS SUMMARY | 2025-06-30 14:59 | XMS_ITS | Clinical Summary ---
Author Organization [facility] Address [address] [place] [id number] Care Team Providers Care Seismographer Name Role Phone Nader Fields MD Primary Care Provider [phone] Allergies Active Allergy Reactions Criticality Noted Date Comments Tetanus Toxoid-Containing Vaccines 1 Medications aspirin 81 MG tablet Take 81 [...] ANNUAL PHYSICAL 07/06/2017 HEPATITIS C SCREENING 07/06/2017 INFLUENZA VACCINE 04/24/2025 COVID-19 Vaccine ( season) 2025 Insurance [employer]AGE Care Teams Seismographer Relationship Specialty Start Date End Date Nader Fields MD [address] [facility] [address] [place] [address] PCP - General Internal Medicine 06/11/17
--- OUTSIDE RECORDS SUMMARY | 2025-06-30 15:00 | XMS_ITS | Encounter Summary ---
Author Organization [facility] Address [address] [place] [address] Care Team Providers Care Order Taker Name Role Phone Nader Fields MD Primary Care Provider [phone] Encounter Details Date Type Department Care Team (Latest Contact Info) Description 06/18/2025 Travel Social History Tobacco Use Types Packs/Day [...] the past 12 months has th e [employer], gas, oil, or water company threatened to [...] Description 07/03/2025 3:30 PM EDT Office Visit [place] [facility] Inter[facility] Rad[facility] [address] [place] [address] 07/09/2025 12:30 PM EDT Appointment P[facility] A Interventional Radiology [address] [place] [address] 07/31/2025 12:20 PM EST Office Visit [facility] [address] [place] [address] Saroj Anderson MD [address] [place] [address] 08/12/2025 1:55 PM EST Hospital Encounter PAV S Operating Room [address] [place] [address] Leon Anne MD [address] [place] [address] 08/12/2025 1:55 PM EST - 08/12/2025 4:25 PM EST Surgery [facility] S Operating Room [address] [place] [address] Leon Anne MD [address] [place] [address] ARTHROPLASTY, KNEE, TOTAL, USING COMPUTER-ASSISTED NAVIGATION [30701 (CPT )] 08/28/2025 11:00 AM EST Office Visit Medical Office Building [facility] [address], [address] [place] [address] Liya Soto PA [address] [place] [address] 10/01/2025 11:30 AM EST Office Visit Medical Office Building [facility] [address], [address] [place] [address] Leon Anne MD [address] [place] [address] Scheduled Procedures Name Priority Associated [...] documented as of this encounter Care Teams Order Taker Relationship Specialty Start Date End Date Nader Fields MD [address] [place] [address] [address] [place] [facility] PCP - General 06/16/24 documented as of this encounter
--- OUTSIDE RECORDS SUMMARY | 2025-06-30 15:00 | XMS_ITS | Encounter Summary ---
Author Organization [facility] Address [address] [place] [address] Care Team Providers Care Prepress Operator Name Role Phone Nader Fields MD Primary Care Provider Reason for Referral * Imaging (Routine) - Authorized Specialty Diagnoses / Procedures Referred By Jean post Referred To Contact Radiology Diagnoses Left knee pain, unspecified chronicity Personal history of DVT (deep vein thrombosis) History of pulmonary embolism Procedures IR IVC Filter Placement Consult to Interventional Radiology Leon Anne MD [address] [address] Phone: tel: fax: Referral ID Status Reason Start Date Expiration Date V isits Requested Visits Authorized [id number] Authorized 06/18/2025 12/18/2026 1 1 Encounter Details Date Type Department Care Team (Late st Contact Info) Description 06/18/2025 Orders Only Medical Office Building [facility] [address] [place] [address] Leon Anne MD [address] [facility] 201 [place] [address] Left knee pain, unspecified chronicity (Primary Dx); Personal history of DVT (deep vein thrombosis); History of pulmonary embolism Social History Tobacco Use Types Packs/Day Years [...] In the past 12 months has e [employer], gas, oil, or water company threatened to [...] Description 07/03/2025 3:30 PM EDT Office Visit [facility] Vascular Interventional Radiology [address] [place] [address] 07/09/2025 12:30 PM EDT Appointment PAV A Interventional Radiology [address] [place] [address] 07/31/2025 12:20 PM EST Office Visit [facility] [address] [facility] [address] [place] [address] Saroj Anderson MD [address] [place] [address] 08/12/2025 1:55 PM EST Hospital Encounter PAV S Operating Room [address] [place] [address] Leon Anne MD [address] [employer] [address] [place] [address] 08/12/2025 1:55 PM EST - 08/12/2025 4:25 PM EST Surgery P[facility] S Operating Room [address] [place] [address] Leon Anne MD [address] [place] [address] ARTHROPLASTY, KNEE, TOTAL, USING COMPUTER-ASSISTED NAVIGATION [22569 (CPT )] 08/28/2025 11:00 AM EST Office Visit Medical Office Building [facility] [address], [address] [place] [address] Liya Soto PA [address] [facility] [address] [place] [address] 10/01/2025 11:30 AM EST Office Visit Medical Office Building [facility] [address] [facility], [address] [place] [address] Leon Anne MD [address] [facility] 201 [place] [address] Scheduled Orders Name Type Priority Associated Diagnoses Orde r Schedule IR IVC Filter Placement Imaging Routine Left knee pain, unspecified chronicity Personal history of DVT (deep vein thrombosis) History of pulmonary embolism Expected: 06/18/2025, Expires: 12/20/2026 Scheduled Procedures Name Priority Associated Diagnoses Date/Ti [...] as of this encounter Visit Diagnoses Diagnosis Arthritis of left knee- Primary Left knee pain, unspecified chronicity- Primary Personal history of DVT (deep vein thrombosis) Personal history of venous thrombosis and embolism History of pulmonary embolism Personal history of venous thrombosis and embolism Arthritis of left knee documented in this [...] documented as of this encounter Care Teams Prepress Operator Relationship Specialty Start Date End Date Nader Fields MD [address] [facility] [address] [place], [place] [address] PCP - General 06/16/24 documented as of this encounter
--- OUTSIDE RECORDS SUMMARY | 2025-06-30 15:00 | XMS_ITS | Encounter Summary ---
Author Organization [facility] Address [address] [place] [address] Care Team Providers Care Client Onboarding Analyst Name Role Phone Nader Fields MD Primary Care Provider [phone] Encounter Details Date Type Department Care Team ([facility] st Contact Info) Description 06/18/2025 Orders Only Medical Office Building [facility] [address] [facility], [address] [place] [address] Leon Anne MD [address] [place] [address] Social History Tobacco Use Types [...] [address] [place] [address] 07/09/2025 12:30 PM EDT Appointment PAV A Interventional Radiology [address] [place] [address] 07/31/2025 12:20 PM EST Office Visit [facility] [address] [place] [address] Saroj Anderson MD [address] [place] [address] 08/12/2025 1:55 PM EST Hospital Encounter PAV S Operating Room [address] [place] [address] Leon Anne MD [address] [place] [address] 08/12/2025 1:55 PM EST - 08/12/2025 4:25 PM EST Surgery [facility] S Operating Room [address] [place] [address] Leon Anne MD [address] [place] [address] ARTHROPLASTY, KNEE, TOTAL, USING COMPUTER-ASSISTED NAVIGATION [06513 (CPT )] 08/28/2025 11:00 AM EST Office Visit Medical Office Building [facility] [address] [facility], [address] [place] [address] Liya Soto PA [address] [place] [address] 10/01/2025 11:30 AM EST Office Visit Medical Office Building [facility] [address] [facility], [address] [place] [address] Leon Anne MD [address] [place] [address] Scheduled Procedures Name Priority Associated [...] documented as of this encounter Care Teams Client Onboarding Analyst Relationship Specialty Start Date End Date Nader Fields MD [address] [place] [address] [address] [place] [address] PCP - General 06/16/24 documented as of this encounter
--- OUTSIDE RECORDS SUMMARY | 2025-06-30 15:00 | XMS_ITS | Clinical Summary ---
Author Organization [facility] Address [address] [place] [address] Care Team Providers Care Appliance Parts Counter Clerk Name Role Phone Nader Fields MD Primary Care Provider [phone] Allergies Active Allergy Reactions Criticality Noted Date [...] tablet by mouth daily. Active nystatin (Mycostatin) 199434 UNIT/GM powder Apply to skin folds twice [...] Take 1 tablet by mouth daily. Active methocarbamol (Robaxin) 750 MG tablet Take 1 tablet by mouth every 6 hours. Active lisinopril 20 MG tablet Take 1 tablet by mouth daily. 5 Active Additional Information Patient not taking.Reported on 06/18/2025 polyethylene glycol (Miralax) 17 g packet Take 17 g by mouth 2 times a day. 5 Active Additional Information Patient not taking.Reported on 06/18/2025 senna (Senokot) 8.6 MG tablet Take 1 tablet by mouth nightly. Active nystatin (Mycostatin) 214472 UNIT/GM powder Apply to skin folds twice daily. 60 g 5 Active gabapentin (Neurontin) 100 MG capsule Take 1 capsule by mouth 3 times a day for 3 days. 9 capsule 5 Active Additional Information Patient not taking.Reported on 06/18/2025 apixaban (Eliquis) 5 MG tablet Take 1 tablet by mouth 2 times a day. 120 tablet 5 Active clobetasol (Temovate) 0.05 % external solution APPLY TOPICALLY TO SCALP TWO TIMES DAILY 5 Active EQ Pain Reliever Ex St 500 MG tablet TAKE 1 TABLET BY MOUTH EVERY 6 HOURS NEEDED FOR PAIN PAIN SCALE SCORE OF 1-3 5 Active tamsulosin (Flomax) 0.4 MG 24 hr capsule Take one capsule daily for 5 days prior to surgery. On the day of surgery, take 2 capsules. The day after surgery, take one capsule. 8 capsule 5 Active Active Problems Problem Noted Date Diagnosed Date Arthritis of left knee 06/18/2025 Laryngopharyngeal reflux 04/03/2025 Single subsegmental pulmonar y embolism without acute cor pulmonale 02/02/2025 Arthritis of right knee 01/28/2025 Class III obesity with body mass index (BMI) of 40.0 or higher 10/23/2024 Unilateral primary osteoarthritis, right knee Encounters Date Type Department Care Team Description 06/18/2025 2:05 PM EDT - 06/18/2025 11:59 PM EDT Hospital Encounter Medical Office Building Radiology [address] [place] [address] Left knee pain, unspecified chronicity; Arthritis of left knee Discharge Disposition: Home or Self Care 06/18/2025 12:40 PM EDT Office Visit Medical Office Building [facility] [address] [facility], [address] [place] [address] Leon Anne MD S/P total knee arthroplasty, right (Primary Dx); Left knee pain, unspecified chronicity; Arthritis of left knee 06/18/2025 12:35 PM EDT - 06/18/2025 2:04 PM EDT Hospital Encounter Medical Office Building Radiology [address] [place] [address] S/P total knee arthroplasty, right Discharge Disposition: Home or Self Care 06/18/2025 Orders Only Medical Office Building [facility] [address] [facility], [address] [place] [address] Leon Anne MD Left knee pain, unspecified chronicity (Primary Dx); Personal history of DVT (deep vein thrombosis); History of pulmonary embolism 06/18/2025 Orders Only Medical Office Building [facility] [address] [facility], [address] [place] [address] Leon Anne MD 06/18/2025 Travel 04/06/2025 Orders Only [facility] [address] [facility], 2nd [place] [address] Jessie Hi MD Abnormal finding of diagnostic imaging (Primary Dx); Dysphonia from Last 3 Months Family History Medical [...] any time in the past 12 m [facility], were you homeless or living [...] Pulse 78 06/18/2025 12:48 PM EDT Temperature 36.8 C (98.2 F) 03/25/2025 2:40 PM EDT Respiratory Rate 14 03/25/2025 2:40 PM EDT Oxygen Saturation 95% 06/18/2025 12:48 PM EDT Inhaled Oxygen Concentration - - Weight 122 kg (270 lb) 06/18/2025 12:48 PM EDT Height 182.9 cm (6') 06/18/2025 12:48 PM EDT Body Mass Index 36.62 06/18/2025 12:48 PM EDT Plan of Treatment Upcoming Encounters Date Type Department Care Team (Latest Contact Info) Description 07/03/2025 3:30 PM EDT Office Visit [facility] Vascular Interventional Radiology [address] [place] [address] 07/09/2025 12:30 PM EDT Appointment PAV A Interventional Radiology [address] [place] [address] 07/31/2025 12:20 PM EST Office Visit [facility] [address] [place] [address] Saroj Anderson MD [address] [place] [address] 08/12/2025 1:55 PM EST Hospital Encounter PAV S Operating Room [address] [place] [address] Leon Anne MD [address] [facility] 201 [place] [address] 08/12/2025 1:55 PM EST - 08/12/2025 4:25 PM EST Surgery PAV S Operating Room [address] [place] [address] Leon Anne MD [address] [place] [address] ARTHROPLASTY, KNEE, TOTAL, USING COMPUTER-ASSISTED NAVIGATION [34863 (CPT )] 08/28/2025 11:00 AM EST Office Visit Medical Office Building [facility] [address], [address] [place] [address] Liya Soto PA [address] [place] [address] 10/01/2025 11:30 AM EST Office Visit Medical Office Building [facility] [address], [address] [place] [address] Leon Anne MD [address] [place] [address] Scheduled Procedures Name Priority Associated Diagnoses Date/Ti me ARTHROPLASTY, KNEE, TOTAL, USING COMPUTER-ASSISTED NAVIGATION Arthritis of left knee 08/12/2025 1:55 PM EST Health Maintenance Due Date Last Done Comments [...] - Risk 60-74 years 1-dose series) 2010 [id number] Vaccine ( season) 2025 03/15/2022, 07/27/2021, 12/01/2020, Additional history exists [facility]-Influenza Vaccine (#1) 2025 [facility]-Diabetes: Hemoglobin A1C 06/16/2025 12/17/2024 [facility]- SDOH Screenings 08/06/2025 [facility]-Adult SDOH Screenings 08/06/2025 02/03/2025 [facility]-Depression Screening 03/25/2026 03/25/2025, 05/2025 [facility]-Obesity Intervention Completed 025, 03/17/2025, 02/12/2025, Additional history exists HPV Vaccines Aged Out [...] [employer] Implanted Type Area Plastic Tool Maker Device Identifier Shelf Expiration Date Model / Serial / Lot Cement Palacos Mv - [id number] Implanted:Qty: 3 on 01/28/2025 by Leon Anne MD at [facility] Right: Knee [employer]-[id number] 03/23/2029 [id number] / / [id number] Chg Tibial [employer] Shrimp Cleaner R - [id number] Implanted:Qty: 1 on 01/28/2025 by Leon Anne MD at [facility] Right: Knee [employer]-[id number] 07/21/2034 [id number] / / [id number] Chg Patella Gii Oval Resurfaci - [id number] Implanted:Qty: 1 on 01/28/2025 by Leon Anne MD at [facility] Right: Knee [employer]-[id number] 10/11/2032 [id number] / / [id number] Jrny Ii Bcs Femoral Oxin Rt Sz - [id number] Implanted:Qty: 1 on 01/28/2025 by Leon Anne MD at [facility] Right: Knee [employer]-[id number] 07/06/2034 [id number] / / [id number] Jrny Ii Bcs Xlpe Art Isrt Sz 7 - [id number] Implanted:Qty: 1 on 01/28/2025 by Leon Anne MD at [facility] Right: Knee [employer]-[id number] 07/08/2032 [id number] / / [id number] Procedures Procedure Name Priority Date/Time Associated Diagnosis Comments XR KNEE LEFT 1 OR 2 VIEWS Routine 06/18/2025 2:33 PM EDT Arthritis of left knee XR HIP-ANKLE LEFT JOINT SURVEY Routine 06/18/2025 2:33 PM EDT Arthritis of left knee XR KNEE RIGHT 1 OR 2 VIEWS Routine 06/18/2025 12:43 PM EDT S/P total knee arthroplasty, right HEMOGLOBIN A1C Routine 12/17/2024 2:49 PM EDT Unilateral primary osteoarthritis, right knee Chronic pain of right knee from Last 3 Months or Most Recently Relevant to Health Maintenance Results * XR Hip-Ankle Left Joint Survey (06/18/2025 [...] XR PROCEDURES Final Resu lt * XR Knee Left 1 or 2 [...] IMG XR PROCEDURES Final Resu lt * (ABNORMAL) Hemoglobin A1c (12/17/2024 2:49 PM EDT) Hemoglobin A1c 6.2(H) <5.7 % 12/17/2024 7:08 PM EDT [facility] Blood Venous blood specimen / Unknown Venipuncture / Unknown 12/17/2024 2:49 PM EDT 12/17/2024 2:49 PM EDT Narrative [facility] - 12/17/2024 7:08 PM EDT HA1C Interpretive Data: Diagnosis of Diabetes: Diabetic > or = 6.5% Pre-diabetic 5.7 to 6.4% Non-diabetic < or = 5.6% Glycemic Targets for Type I and Type II Diabetics: Non- Adults <7.0% Adults <6.0% Children and Adolescents <7.5% Source: [place] [employer]. Standards of medical care in diabetes,2017. Diabetes Care.2017:40 (suppl 1):S1-S135. HbA1c assay performed by an ion-exchange chromatography method that is certified traceable to the DCCT. Leon Anne MD LAB BLOOD ORDERABLES Final R esult [facility] [address] [place] [address] from Last 3 Months or Most Recently Relevant to Health Maintenance Additional Health Concerns Active Problems Noted Date Diagnosed Date Autogenerated Problem 01/21/2025 Autogenerated Problem 06/18/2025 Insurance [employer] MEDICARE Advance Directives Documents on File Type Date Recorded Patient Vice President Process Expl anation Advance Directives and Livin g Will 01/30/2025 1:47 PM Power of Traffic Control Operator 01/30/2025 1:47 PM Advance Directives and Livin g Will 02/02/2025 Power of Traffic Control Operator 02/02/2025 * DNR/DNI (Latest Code Status [...] updated to appropriate status: Yes Care Teams Appliance Parts Counter Clerk Relationship Specialty Start Date End Date Nader Fields MD [address] [facility] [address] [place] [address] PCP - General 06/16/24
--- OUTSIDE RECORDS SUMMARY | 2025-06-30 15:00 | XMS_ITS | Encounter Summary ---
Author Organization [facility] Address [address] [place] [address] Care Team Providers Care Section Leader Screen Printing Name Role Phone Nader Fields MD Primary Care Provider Encounter Details Date Type Department Care Team (Late st Contact Info) Description 04/03/2024 Orders Only External Location [address] [place] [address] Kevin Zheng, DO [address] [place] [address] [place] [address] Social History Tobacco Use Types Packs/Day Years [...] [address] [place] [address] 07/09/2025 12:30 PM EDT Appointment P[facility] A Interventional Radiology [address] [place] [address] 07/31/2025 12:20 PM EST Office Visit [facility] [address] [place] [address] Saroj Anderson MD [address] [place] [address] 08/12/2025 1:55 PM EST Hospital Encounter PAV S Operating Room [address] [place] [address] Leon Anne MD [address] [place] [address] 08/12/2025 1:55 PM EST - 08/12/2025 4:25 PM EST Surgery P[facility] S Operating Room [address] [place] [address] Leon Anne MD [address] [place] [address] ARTHROPLASTY, KNEE, TOTAL, USING COMPUTER-ASSISTED NAVIGATION [48552 (CPT )] 08/28/2025 11:00 AM EST Office Visit Medical Office Building [facility] [address] [facility], [address] [place] [address] Liya Soto PA [address] [place] [address] 10/01/2025 11:30 AM EST Office Visit Medical Office Building [facility] [address] [facility], [address] [place] [address] Leon Anne MD [address] [place] [address] Scheduled Procedures Name Priority Associated [...] documented as of this encounter Care Teams Section Leader Screen Printing Relationship Specialty Start Date End Date Nader Fields MD [address] [place] [address] [address] [place] [address] PCP - General 06/16/24 documented as of this encounter
--- NOTE | 2025-06-30 15:16 | ECG_ITS ---
APPROVED REPORT Exam: Resting ECG HR:96 bpm ECG Measurements Heart Rate 96 AXES NJ 250 P 20 QRSd 127 QRS 42 QT 363 T 3 QTc 416 Conclusion SINUS RHYTHM WITH FIRST DEGREE AV BLOCK WITH FREQUENT SUPRAVENTRICULAR PREMATURE COMPLEXES RIGHT BUNDLE BRANCH BLOCK [120+ ms QRS DURATION, UPRIGHT V1, 40+ ms S IN I/aVL/V4/V5/V6] ABNORMAL ECG UNCONFIRMED REPORT Electronically signed by : Leon Pérez MD 06/30/2025 17:04:33
--- NOTE | 2025-06-30 15:21 | XR_ITS ---
FINAL REPORT CLINICAL HISTORY: Preoperative cardiovascular examination FINDINGS: 2 views of the chest were obtained . The heart is normal in size. The mediastinum is within normal limits. Lung volumes are low. The lungs are clear. There is no pneumothorax. Osseous structures are unremarkable. IMPRESSION: No acute cardiopulmonary process. Reviewed, Interpreted and Dictated by Miley Kwon MD Transcribed by Madeleine Lennon Authenticated and [facility]
[2025-06-30 17:39] LABS: Hematocrit 37.4 % (42.0-52.0); Hemoglobin 11.8 g/dL (14.1-18.0); Immature Granulocytes % 0.6 %; Mean Corpuscular HGB Conc 31.6 g/dL (31.8-35.4); Mean Corpuscular Hemoglobin 27.8 pg (27.0-31.2); Mean Corpuscular Volume 88.2 fl (80-94); Nucleated Red Blood Cells % 0 %; Platelet Count 380 K/mm3 (142-424); Red Blood Count 4.24 M/mm3 (4.60-6.20); Red Cell Distribution Width-SD 45.3 fL; White Blood Count 7.1 K/mm3 (4.8-10.8)
[2025-06-30 18:15] LABS: Alanine Aminotransferase 9 U/L (12-78); Albumin Level 4.0 g/dl (3.5-5.0); Albumin/Globulin Ratio 1.3 (1.1-1.8); Alkaline Phosphatase 97 U/L (38-126); Anion Gap 18.8 mEq/L (5-15); Aspartate Amino Transferase 16 U/L (17-59); Bilirubin,Total 0.6 mg/dl (0.2-1.3); Blood Urea Nitrogen 20 mg/dl (9-20); Calcium 9.6 mg/dl (8.4-10.2); Carbon Dioxide 29 mmol/L (22.0-30.0); Chloride 97 mmol/L (98-107); Cholesterol 135 mg/dl (140-200); Creatinine,Serum 1.50 mg/dl (0.66-1.25); Estimated Glomerular Filt Rate 46 ml/min (>60); GFR (African American) 55 ML/MIN (>60); Globulin 3.2 g/dL (1.3-3.2); Glucose 64 mg/dl (74-100); HDL Cholesterol 29 mg/dl (40-60); Potassium 4.8 mmoL/L (3.5-5.1); Sodium 140 mmol/L (136-145); Total Protein,Serum 7.2 g/dl (6.3-8.2); Triglycerides 135 mg/dl (30-150)
[2025-06-30 18:32] LABS: Hemoglobin A1C 6.2 % (4.0-6.0)
--- OUTSIDE RECORDS SUMMARY | 2025-08-17 20:00 | XMS_ITS | Clinical Summary ---
Author Organization Unknown Care Team Providers Care Yard Person Name Role Phone NIKO QUIROS, MARY Unavailable Unavailable DIANELYS PT, JOSEPHINE Unavailable Unavailable ILEANA RN, MARIA T Unavailable Unavailable EDWARD [employer] ATTENDANT, CARLA Unavailable Unavailable KAMI OT, SANDRA Unavailable Unavailable Payers Payer Name Policy Type Policy Number Effective Date Expira tion Date HUMANVianney.STEVO.PPO.C.AUTH [id number] Problems Condition Name Condition Details Condition Category Status Onset Date Resolution Date Last Treatment Date Treating Clinician Comments OTHER PULMONARY EMBOLISM WITHOUT ACUTE COR PULMONALE Active 03-24 00:00: 00 ACUTE EMBOLISM AND THROMBOSIS OF LEFT FEMORAL VEIN Active 03-24 00:00: 00 HYPERTENSIVE CHRONIC KIDNEY DISEASE W STG 1-4/UNSP CHR KDNY Active 09-24 00:00: 00 TYPE 2 DIABETES MELLITUS W DIABETIC CHRONIC KIDNEY DISEASE Active 09-24 00:00: 00 CHRONIC KIDNEY DISEASE, UNSPECIFIED Active 04-16 00:00: 00 CHRONIC RESPIRATORY FAILURE WITH HYPOXIA Active 03-24 00:00: 00 TYPE 2 DIABETES MELLITUS WITH DIABETIC NEUROPATHY, UNSP Active 09-24 00:00: 00 OTHER DISEASES OF PHARYNX Active 09-24 00:00: 00 VITAMIN B12 DEFICIENCY ANEMIA, UNSPECIFIED Active 09-24 00:00: 00 OBSTRUCTIVE AND REFLUX UROPATHY, UNSPECIFIED Active 09-24 00:00: 00 ATHSCL HEART DISEASE OF [place] CORONARY ARTERY W/O ANG PCTRS Active 09-24 00:00: 00 HYPERLIPIDEM IA, UNSPECIFIED Active 09-24 00:00: 00 HISTORY OF FALLING Active 04-16 00:00: 00 PRESENCE OF RIGHT ARTIFICIAL KNEE JOINT Active 08 00:00: 00 LNG TRM (CRNT) USE INJECTABLE NON-INSULIN ANTIDIABETIC DRUGS Active 1- 00:00: 00 SKILLED NURSING (CURRENT) USE OF ORAL HYPOGLYCEMIC DRUGS Active 1- 00:00: 00 SKILLED NURSING (CURRENT) USE OF ANTICOAGULAN TS Active -24 00:00: 00 Allergies, Adverse Reactions, Alerts Allergy Name Allergy Type Status Severity Reaction(s) Onset Date Inactive Date Treating Clinician Comments TETANUS TOXIODS Propensity to adverse reactions Active 2025-03 14:51:5 4 Medications Ordered Medication Name Filled Medication Name Start Date Stop Date Current Medication? Ordering Clinician Indication Dosage Frequency Signature (SIG) Comments Components Ozempic 2 mg/dose (8 mg/3 mL) subcutaneou s pen injector 03-10 00:00: 00 Yes [id number] T2DM 2 mg WEEKLY 2 mg WEEKLY (route: subcutaneo us) Med Classific ation: Endocrine acetaminoph en 325 mg tablet 03-13 00:00: 00 04-21 00:00 :00 No [id number] PAIN 2 tablet EVERY 6 HOURS 2 tablet EVERY 6 HOURS (route: oral) Med Classific ation: Analgesic , Anti-infl ammatory or Antipyret ic amlodipine 5 mg tablet 03-13 00:00: 00 04-21 00:00 :00 No [id number] BLOOD PRESSURE 1 tablet DAILY 1 tablet DAILY (route: oral) Med Classific ation: Cardiovas cular Therapy Agents Aspirin Childrens 81 mg chewable tablet 03-13 00:00: 00 Yes [id number] HEART 1 tablet DAILY 1 tablet DAILY (route: oral) Med Classific ation: Hematolog ical Agents docusate sodium 250 mg capsule 03-13 00:00: 00 Yes [id number] CONSTIPATIO N 1 capsule DAILY 1 capsule DAILY (route: oral) Med Classific ation: Gastroint estinal Therapy Agents Eliquis 5 mg tablet 03-13 00:00: 00 Yes [id number] HEART 1 tablet 2 TIMES DAILY 1 tablet 2 TIMES DAILY (route: oral) Med Classific ation: Hematolog ical Agents famotidine 20 mg tablet 03-13 00:00: 00 Yes [id number] EDEMA 1 tablet DAILY 1 tablet DAILY (route: oral) Med Classific ation: Gastroint estinal Therapy Agents gabapentin 100 mg capsule 03-13 00:00: 00 Yes [id number] NERVE PAIN 1 capsule 3 TIMES DAILY 1 capsule 3 TIMES DAILY (route: oral) Med Classific ation: Central Nervous System Agents lisinopril 20 mg tablet 03-13 00:00: 00 06-17 00:00 :00 No [id number] HEART 1 tablet DAILY 1 tablet DAILY (route: oral) Med Classific ation: Cardiovas cular Therapy Agents metformin 1,000 mg tablet 03-13 00:00: 00 Yes [id number] T2DM 1 tablet 2 TIMES DAILY 1 tablet 2 TIMES DAILY (route: oral) Med Classific ation: Endocrine methocarbam ol 750 mg tablet 03-13 00:00: 00 06-17 00:00 :00 No [id number] MUSCLE SPASMS 1 tablet EVERY 6 HOURS 1 tablet EVERY 6 HOURS (route: oral) Med Classific ation: Locomotor System oxycodone 5 mg tablet 03-13 00:00: 00 06-17 00:00 :00 No [id number] PAIN 1 tablet EVERY 6 HOURS 1 tablet EVERY 6 HOURS (route: oral) Med Classific ation: Analgesic , Anti-infl ammatory or Antipyret ic pioglitazon e 15 mg tablet 03-13 00:00: 00 Yes [id number] T2DM 1 tablet DAILY 1 tablet DAILY (route: oral) Med Classific ation: Endocrine pravastatin 20 mg tablet 03-13 00:00: 00 Yes [id number] CHOLESTEROL 1 tablet DAILY 1 tablet DAILY (route: oral) Med Classific ation: Cardiovas cular Therapy Agents Senna Lax 8.6 mg tablet 03-13 00:00: 00 Yes [id number] CONSTIPATIO N 1 tablet DAILY 1 tablet DAILY (route: oral) Med Classific ation: Gastroint estinal Therapy Agents B12 1,000 mcg-methylt etrahydrofo late 680 mcg DFE-B6 1.5 mg chew tablet 04-21 00:00: 00 Yes [id number] SUPPLEMENT 1000 mg DAILY 1000 mg DAILY (route: oral) Med Classific ation: Electroly te Balance-N utritiona l Products Miralax 17 gram oral powder packet 04-21 00:00: 00 Yes [id number] CONSTIPATIO N 17 g 2 TIMES DAILY 17 g 2 TIMES DAILY (route: oral) Med Classific ation: Gastroint estinal Therapy Agents nystatin 100,000 unit/gram topical powder 04-21 00:00: 00 Yes [id number] YEAST 1 gram 2 TIMES DAILY 1 gram 2 TIMES DAILY (route: topical) Med Classific ation: Dermatolo gical acetaminoph en 500 mg tablet 05-06 00:00: 00 Yes [id number] FOR PAIN 2 tablet EVERY 8 HOURS 2 tablet EVERY 8 HOURS (route: oral) Med Classific ation: Analgesic , Anti-infl ammatory or Antipyret ic furosemide 40 mg tablet 05-06 00:00: 00 Yes [id number] DIURETIC 40 mg DAILY 40 mg DAILY (route: oral) Med Classific ation: Cardiovas cular Therapy Agents Vital Signs Vital Name Observation Time Observation Value Commen ts Pulse 2025-06-29 13:20:00.000 76 /min O2 Saturation (%) 2025-06-29 13:20:00.000 98 % Respirations 2025-06-29 13:20:00.000 17 /min Systolic Blood Pressure 2025-06-29 13:20:00.000 130 mm [Hg] Diastolic Blood Pressure 2025-06-29 13:20:00.000 72 mm [Hg] Plan of Treatment Planned Activity Planned Date Details Comments Future Scheduled Test AGENCY MAY PERFORM A RESUMPTION OF CARE VISIT FOLLOWING ANY HOSPITAL ADMISSION. PT TO EVALUATE, OBSERVE / ASSESS, AND MONITOR, [employer] ATTENDANT TO OBSERVE AND MONITOR, PROVIDE SKILLED THERAPEUTIC INTERVENTION, ACTIVITY, EDUCATION, AND TRAINING TO ADDRESS; [code = AGENCY MAY PERFORM A RESUMPTION OF CARE VISIT FOLLOWING ANY HOSPITAL ADMISSION. PT TO EVALUATE, OBSERVE / ASSESS, AND MONITOR, [employer] ATTENDANT TO OBSERVE AND MONITOR, PROVIDE SKILLED THERAPEUTIC INTERVENTION, ACTIVITY, EDUCATION, AND TRAINING TO ADDRESS;] Future Scheduled Test SIT TO/FRO M STAND TRANSFERS (PT/SEWAGE PLANT ATTENDANT) [code = SIT TO/FROM STAND TRANSFERS (PT/SEWAGE PLANT ATTENDANT)] Future Scheduled Test PT/SEWAGE [employer]ANT ATTENDANT TO PROVIDE GAIT TRAINING FOR IMPROVED MOBILITY AND /OR TO NORMALIZE GAIT PATTERN [code = PT/SEWAGE PLANT ATTENDANT TO PROVIDE GAIT TRAINING FOR IMPROVED MOBILITY AND /OR TO NORMALIZE GAIT PATTERN] Future Scheduled Test THERAPEUTI C EXERCISES AND ESTABLISHING A HOME EXERCISE PROGRAM (PT/SEWAGE [employer]ANT ATTENDANT) [code = THERAPEUTIC EXERCISES AND ESTABLISHING A HOME EXERCISE PROGRAM (PT/SEWAGE PLANT ATTENDANT)] Future Scheduled Test AGENCY MAY PERFORM A RESUMPTION OF CARE VISIT FOLLOWING ANY HOSPITAL ADMISSION. OT TO EVALUATE, OBSERVE / ASSESS, AND MONITOR, PRITI TO OBSERVE AND MONITOR, PROVIDE SKILLED THERAPEUTIC INTERVENTION, ACTIVITY, EDUCATION, AND TRAINING TO ADDRESS;BALANCE, FUNCTIONAL TRANSFERS, SELF CARE PERFORMANCE, BED MOBILITY/POSITIONING DRESSING (OT/PRITI) BED MOBILITY (OT/SHIPPING AND RECEIVING SUPERVISOR) BED TRANSFERS (OT/PRITI) BATH/SHOWER TRANSFER (OT/PRITI) POSTURAL CONTROL/BALANCE (OT/SHIPPING AND RECEIVING SUPERVISOR) THERAPEUTIC EXERCISE (OT/PRITI) OT/SHIPPING AND RECEIVING SUPERVISOR MAY EDUCATE ON PAIN MANAGEMENT CLINICALLY INDICATED, INCLUDING NON-PHARMACOLOGICAL PAIN REDUCTION TECHNIQUES AND USE OF CRYOTHERAPY OR HEAT UP TO 20 MIN AT A TIME FOR PAIN MANAGEMENT OT / PRITI TO IDENTIFY FALL RISK FACTORS; EDUCATE THE PATIENT/CAREGIVER ON WAYS TO REDUCE FALL RISK FACTORS AND ESTABLISH HOME EXERCISE PROGRAM TO MINIMIZE FALL RISK. MAY TEACH THE PATIENT FLOOR RECOVERY WHEN CLINICALLY APPROPRIATE. [code = AGENCY MAY PERFORM A RESUMPTION OF CARE VISIT FOLLOWING ANY HOSPITAL ADMISSION. OT TO EVALUATE, OBSERVE / ASSESS, AND MONITOR, PRITI TO OBSERVE AND MONITOR, PROVIDE SKILLED THERAPEUTIC INTERVENTION, ACTIVITY, EDUCATION, AND TRAINING TO ADDRESS;BALANCE, FUNCTIONAL TRANSFERS, SELF CARE PERFORMANCE, BED MOBILITY/POSITIONING DRESSING (OT/PRITI) BED MOBILITY (OT/PRITI) BED TRANSFERS (OT/SHIPPING AND RECEIVING SUPERVISOR) BATH/SHOWER TRANSFER (OT/SHIPPING AND RECEIVING SUPERVISOR) POSTURAL CONTROL/BALANCE (OT/PRITI) THERAPEUTIC EXERCISE (OT/SHIPPING AND RECEIVING SUPERVISOR) OT/SHIPPING AND RECEIVING SUPERVISOR MAY EDUCATE ON PAIN MANAGEMENT CLINICALLY INDICATED, INCLUDING NON-PHARMACOLOGICAL PAIN REDUCTION TECHNIQUES AND USE OF CRYOTHERAPY OR HEAT UP TO 20 MIN AT A TIME FOR PAIN MANAGEMENT OT / SHIPPING AND RECEIVING SUPERVISOR TO IDENTIFY FALL RISK FACTORS; EDUCATE THE PATIENT/CAREGIVER ON WAYS TO REDUCE FALL RISK FACTORS AND ESTABLISH HOME EXERCISE PROGRAM TO MINIMIZE FALL RISK. MAY TEACH THE PATIENT FLOOR RECOVERY WHEN CLINICALLY APPROPRIATE.] Goal 2025-06-17 Patient Goal - TO GET STRONG ER Goal Patient Goal - TO GET STRONG ER Goal Provider Goal - Goal Provider Goal - PT STG: PATIENT WILL DEMONSTRATE IMPROVED ABILITY TO PERFORM SIT TO/FROM STAND TRANSFERS TO REDUCE THE RISK OF SKIN BREAKDOWN AND REDUCE FALL RISK FROM MOD TO SBA WITHIN 4 WEEKS PT LTG: PATIENT WILL DEMONSTRATE IMPROVED ABILITY TO PERFORM SIT TO/FROM STAND TRANSFERS TO REDUCE THE RISK OF SKIN BREAKDOWN AND REDUCE FALL RISK FROM MOD TO IND WITHIN 8 WEEKS Goal Provider Goal - PT STG: PATIENT WILL DEMONSTRATE IMPROVED AMBULATION FROM CGA TO SBA WITH APPROPRIATE AD WITHIN 4 WEEKS. PT LTG: PATIENT WILL DEMONSTRATE IMPROVED AMBULATION FROM CGA TO IND WITH APPROPRIATE AD WITHIN 8 WEEKS. Goal Provider Goal - PT LTG: PATIENT WILL DEMONSTRATE IMPROVED FUNCTIONAL STRENGTH EVIDENCED BY FIVE TIMES SIT TO STAND TEST (CUT SCORE >12 SECONDS INDICATES AN INCREASED FALL RISK) IMPROVING FROM 25 SECONDS FROM ROLLATOR TO LESS THAN OR EQUAL TO 12 SECONDS WITHIN 8 WEEKS IN ORDER TO DECREASE FALL RISK PT LTG: PATIENT WILL DEMONSTRATE INDEPENDENCE AND COMPLIANCE WITH HEP WITHIN 4 WEEKS Goal Provider Goal - OT STG: PATIENT WILL DEMONSTRATE IMPROVED ABILITY TO PERFORM LOWER BODY DRESSING TO REDUCE CAREGIVER BURDEN FROM MODERATE A TO MINIMAL A WITHIN 6 WEEKS OT LTG: PATIENT WILL DEMONSTRATE IMPROVED ABILITY TO PERFORM LOWER BODY DRESSING TO REDUCE CAREGIVER BURDEN FROM MODERATE A TO CGA WITHIN 9 WEEKS OT STG PATIENT WILL BE ABLE TO SAFELY POSITION SELF IN BED TO REDUCE THE RISK OF SKIN BREAKDOWN AND FOR IMPROVED PARTICIPATION IN ADLS FROM MAXIMAL A TO MINIMAL A USING AD PRN WITHIN 6 WEEKS OT LTG: PATIENT WILL BE ABLE TO SAFELY POSITION SELF IN BED TO REDUCE THE RISK OF SKIN BREAKDOWN AND FOR IMPROVED PARTICIPATION IN ADLS FROM MAXIMAL A TO SBA USING AD PRN WITHIN 9 WEEKS OT STG: PATIENT WILL DEMONSTRATE IMPROVED ABILITY TO PERFORM BED TRANSFERS IN ORDER TO REDUCE RISK OF SKIN BREAKDOWN AND TO IMPROVE PARTICIPATION IN ADLS FROM MAXIMAL A TO MINIMAL A WITHIN 6 WEEKS OT LTG: PATIENT WILL DEMONSTRATE IMPROVED ABILITY TO PERFORM BED TRANSFERS IN ORDER TO REDUCE RISK OF SKIN BREAKDOWN AND TO IMPROVE PARTICIPATION IN ADLS FROM MAXIMAL A TO SBA WITHIN 9 WEEKS OT STG: PATIENT WILL DEMONSTRATE IMPROVED ABILITY AND SAFETY TO PERFORM BATH/SHOWER TRANSFER FROM MINIMAL A TO CG A WITHIN 6 WEEKS OT LTG: PATIENT WILL DEMONSTRATE IMPROVED ABILITY AND SAFETY TO PERFORM BATH/SHOWER TRANSFER FROM MINIMAL A TO SUPERVISION A WITHIN 9 WEEKS OT STG: PATIENT WILL DEMONSTRATE IMPROVED POSTURAL CONTROL AND DECREASED FALL RISK EVIDENCED BY AN IMPROVEMENT IN FUNCTIONAL REACH SCORE FROM 5 IN TO 8 IN WITHIN 6 WEEKS OT LTG: PATIENT WILL DEMONSTRATE IMPROVED POSTURAL CONTROL AND DECREASED FALL RISK EVIDENCED BY AN IMPROVEMENT IN FUNCTIONAL REACH SCORE FROM 5 IN TO 9 IN WITHIN 9 WEEKS OT STG: PATIENT WILL PERFORM HIS BUE STRENGTHENING HEP FROM MINIMAL A TO INDEPENDENT WITHIN 3 WEEKSN OT STG: PATIENT WILL DEMONSTRATE IMPROVED BUE MUSCLE STRENGTH EVIDENCED BY AN IMPROVEMENT IN MMT/FUNCTIONAL STRENGTH FROM RUE 3-/5 TO 3/5 , LUE FROM 3+/5 TO 4/5 WITHIN 6 WEEKS IN ORDER TO IMPROVE FUNCTIONAL TRANSFERS OT LTG: PATIENT WILL DEMONSTRATE IMPROVED BUE MUSCLE STRENGTH EVIDENCED BY AN IMPROVEMENT IN MMT/FUNCTIONAL STRENGTH FROM RUE 3-/5 TO 3+/5 , LUE FROM 3+/5 TO 4/5 WITHIN 9 WEEKS IN ORDER TO IMPROVE FUNCTIONAL TRANSFERS OT LTG: PATIENT WILL DEMONSTRATE UNDERSTANDING OF PAIN MANAGEMENT TECHNIQUES EVIDENCED BY REDUCED PAIN IN LEFT KNEE FROM 7/10, TO 3^10 WITHIN 9 WEEKS OT LTG: PATIENT/CAREGIVER WILL BE ABLE TO IMPLEMENT RECOMMENDATIONS SPECIFIC TO FALL REDUCTION FOR IMPROVED ADL/IADL COMPLETION AND HOME SAFETY BY END OF EPISODE. Encounters Start Date/Time End Date/Time Encounter Type Admission Type Attending [facility] Care Department Encounter ID Discharge Date Discharge Status Discharge Condition Discharge Reason Percent Goals Met 2025-06-20 00:00:00 2025-08-18 00:00:00 Outpatient RECERTIFIC ATION MARIA T TEJEDA [facility] [id number] 0.00
--- OUTSIDE RECORDS SUMMARY | 2025-08-17 20:00 | XMS_ITS | Clinical Summary ---
Author Organization Unknown Care Team Providers Care Autopsy Pathologist Name Role Phone NIKO QUIROS, MARY Unavailable Unavailable DIANELYS PT, JOSEPHINE Unavailable Unavailable ILEANA RN, MARIA T Unavailable Unavailable EDWARD REAL ESTATE RENTAL AGENT, CARLA Unavailable Unavailable KAMI OT, SANDRA Unavailable Unavailable Payers Payer Name Policy Type Policy Number Effective Date Expira tion Date HUMANVianney.STEVO.PPO.C.AUTH [id number] Problems Condition Name Condition Details Condition Category [...] 09-24 00:00: 00 ATHSCL HEART DISEASE OF [place] CORONARY ARTERY W/O ANG PCTRS Active 09-24 00:00: 00 HYPERLIPIDEM IA, UNSPECIFIED Active 09-24 00:00: 00 HISTORY OF FALLING Active 04-16 00:00: 00 PRESENCE OF RIGHT ARTIFICIAL KNEE JOINT Active 08 00:00: 00 LNG TRM (CRNT) USE INJECTABLE NON-INSULIN ANTIDIABETIC DRUGS Active 1- 00:00: 00 GROUP HOME (CURRENT) USE OF ORAL HYPOGLYCEMIC DRUGS Active 1- 00:00: 00 GROUP HOME (CURRENT) USE OF ANTICOAGULAN TS Active -24 [...] s pen injector 03-10 00:00: 00 Yes [id number] T2DM 2 mg WEEKLY 2 mg WEEKLY (route: subcutaneo us) Med Classific ation: Endocrine acetaminoph en 325 mg tablet 03-13 00:00: 00 04-21 00:00 :00 No [id number] PAIN 2 tablet EVERY 6 HOURS 2 tablet EVERY 6 HOURS (route: oral) Med Classific ation: Analgesic , Anti-infl ammatory or Antipyret ic amlodipine 5 mg tablet 03-13 00:00: 00 04-21 00:00 :00 No [id number] BLOOD PRESSURE 1 tablet DAILY 1 tablet DAILY (route: oral) Med Classific ation: Cardiovas cular Therapy Agents Aspirin Childrens 81 mg chewable tablet 03-13 00:00: 00 Yes [id number] HEART 1 tablet DAILY 1 tablet DAILY (route: oral) Med Classific ation: Hematolog ical Agents docusate sodium 250 mg capsule 03-13 00:00: 00 Yes [id number] CONSTIPATIO N 1 capsule DAILY 1 capsule DAILY (route: oral) Med Classific ation: Gastroint estinal Therapy Agents Eliquis 5 mg tablet 03-13 00:00: 00 Yes [id number] HEART 1 tablet 2 TIMES DAILY 1 tablet 2 TIMES DAILY (route: oral) Med Classific ation: Hematolog ical Agents famotidine 20 mg tablet 03-13 00:00: 00 Yes [id number] EDEMA 1 tablet DAILY 1 tablet DAILY (route: oral) Med Classific ation: Gastroint estinal Therapy Agents gabapentin 100 mg capsule 03-13 00:00: 00 Yes [id number] NERVE PAIN 1 capsule 3 TIMES DAILY 1 capsule 3 TIMES DAILY (route: oral) Med Classific ation: Central Nervous System Agents lisinopril 20 mg tablet 03-13 00:00: 00 06-17 00:00 :00 No [id number] HEART 1 tablet DAILY 1 tablet DAILY (route: oral) Med Classific ation: Cardiovas cular Therapy Agents metformin 1,000 mg tablet 03-13 00:00: 00 Yes [id number] T2DM 1 tablet 2 TIMES DAILY 1 tablet 2 TIMES DAILY (route: oral) Med Classific ation: Endocrine methocarbam ol 750 mg tablet 03-13 00:00: 00 06-17 00:00 :00 No [id number] MUSCLE SPASMS 1 tablet EVERY 6 HOURS 1 tablet EVERY 6 HOURS (route: oral) Med Classific ation: Locomotor System oxycodone 5 mg tablet 03-13 00:00: 00 06-17 00:00 :00 No [id number] PAIN 1 tablet EVERY 6 HOURS 1 tablet EVERY 6 HOURS (route: oral) Med Classific ation: Analgesic , Anti-infl ammatory or Antipyret ic pioglitazon e 15 mg tablet 03-13 00:00: 00 Yes [id number] T2DM 1 tablet DAILY 1 tablet DAILY (route: oral) Med Classific ation: Endocrine pravastatin 20 mg tablet 03-13 00:00: 00 Yes [id number] CHOLESTEROL 1 tablet DAILY 1 tablet DAILY (route: oral) Med Classific ation: Cardiovas cular Therapy Agents Senna Lax 8.6 mg tablet 03-13 00:00: 00 Yes [id number] CONSTIPATIO N 1 tablet DAILY 1 tablet DAILY (route: oral) Med Classific ation: Gastroint estinal Therapy Agents B12 1,000 mcg-methylt etrahydrofo late 680 mcg DFE-B6 1.5 mg chew tablet 04-21 00:00: 00 Yes [id number] SUPPLEMENT 1000 mg DAILY 1000 mg DAILY (route: oral) Med Classific ation: Electroly te Balance-N utritiona l Products Miralax 17 gram oral powder packet 04-21 00:00: 00 Yes [id number] CONSTIPATIO N 17 g 2 TIMES DAILY 17 g 2 TIMES DAILY (route: oral) Med Classific ation: Gastroint estinal Therapy Agents nystatin 100,000 unit/gram topical powder 04-21 00:00: 00 Yes [id number] YEAST 1 gram 2 TIMES DAILY 1 gram 2 TIMES DAILY (route: topical) Med Classific ation: Dermatolo gical acetaminoph en 500 mg tablet 05-06 00:00: 00 Yes [id number] FOR PAIN 2 tablet EVERY 8 HOURS 2 tablet EVERY 8 HOURS (route: oral) Med Classific ation: Analgesic , Anti-infl ammatory or Antipyret ic furosemide 40 mg tablet 05-06 00:00: 00 Yes [id number] DIURETIC 40 mg DAILY 40 mg DAILY [...] TO EVALUATE, OBSERVE / ASSESS, AND MONITOR, REAL ESTATE RENTAL AGENT TO OBSERVE AND MONITOR, PROVIDE SKILLED THERAPEUTIC INTERVENTION, ACTIVITY, EDUCATION, AND TRAINING TO ADDRESS; [code = AGENCY MAY PERFORM A RESUMPTION OF CARE VISIT FOLLOWING ANY HOSPITAL ADMISSION. PT TO EVALUATE, OBSERVE / ASSESS, AND MONITOR, REAL ESTATE RENTAL AGENT TO OBSERVE AND MONITOR, PROVIDE SKILLED THERAPEUTIC INTERVENTION, ACTIVITY, EDUCATION, AND TRAINING TO ADDRESS;] Future Scheduled Test SIT TO/FRO M STAND TRANSFERS (PT/REAL ESTATE RENTAL AGENT) [code = SIT TO/FROM STAND TRANSFERS (PT/REAL ESTATE RENTAL AGENT)] Future Scheduled Test PT/REAL ESTATE RENTAL AGENT TO PROVIDE GAIT TRAINING FOR IMPROVED MOBILITY AND /OR TO NORMALIZE GAIT PATTERN [code = PT/REAL ESTATE RENTAL AGENT TO PROVIDE GAIT TRAINING FOR IMPROVED MOBILITY AND /OR TO NORMALIZE GAIT PATTERN] Future Scheduled Test THERAPEUTI C EXERCISES AND ESTABLISHING A HOME EXERCISE PROGRAM (PT/REAL ESTATE RENTAL AGENT) [code = THERAPEUTIC EXERCISES AND ESTABLISHING A HOME EXERCISE PROGRAM (PT/REAL ESTATE RENTAL AGENT)] Future Scheduled Test AGENCY MAY PERFORM A RESUMPTION OF CARE VISIT FOLLOWING ANY HOSPITAL ADMISSION. OT TO EVALUATE, OBSERVE / ASSESS, AND MONITOR, PRITI TO OBSERVE AND MONITOR, PROVIDE SKILLED THERAPEUTIC INTERVENTION, ACTIVITY, EDUCATION, AND TRAINING TO ADDRESS;BALANCE, FUNCTIONAL TRANSFERS, SELF CARE PERFORMANCE, BED MOBILITY/POSITIONING DRESSING (OT/PRITI) BED MOBILITY (OT/POWDER GUARD) BED TRANSFERS (OT/PRITI) BATH/SHOWER TRANSFER (OT/PRITI) POSTURAL CONTROL/BALANCE (OT/POWDER GUARD) THERAPEUTIC EXERCISE (OT/PRITI) OT/POWDER GUARD MAY EDUCATE ON PAIN MANAGEMENT CLINICALLY INDICATED, [...] DRESSING (OT/PRITI) BED MOBILITY (OT/PRITI) BED TRANSFERS (OT/POWDER GUARD) BATH/SHOWER TRANSFER (OT/POWDER GUARD) POSTURAL CONTROL/BALANCE (OT/PRITI) THERAPEUTIC EXERCISE (OT/POWDER GUARD) OT/POWDER GUARD MAY EDUCATE ON PAIN MANAGEMENT CLINICALLY INDICATED, INCLUDING NON-PHARMACOLOGICAL PAIN REDUCTION TECHNIQUES AND USE OF CRYOTHERAPY OR HEAT UP TO 20 MIN AT A TIME FOR PAIN MANAGEMENT OT / POWDER GUARD TO IDENTIFY FALL RISK FACTORS; EDUCATE THE [...] End Date/Time Encounter Type Admission Type Attending [facility] Care Facility Care Department Encounter ID Discharge Date Discharge Status Discharge Condition Discharge Reason Percent Goals Met 2025-06-20 00:00:00 2025-08-18 00:00:00 Outpatient RECERTIFIC ATION MARIA T TEJEDA [facility] [id number] 0.00
== END 2025-06-30 23:59 | disposition home or self-care (01) ==
LOC: RAD 14:58
PROVIDERS: PCP Internal Medicine; Visit Provider Internal Medicine
DX: Z01.810 Encounter for preprocedural cardiovascular examination (principal); Z01.811 Encounter for preprocedural respiratory examination; I44.0 Atrioventricular block, first degree; I49.1 Atrial premature depolarization; I45.10 Unspecified right bundle-branch block; E11.42 Type 2 diabetes mellitus with diabetic polyneuropathy; E78.5 Hyperlipidemia, unspecified; I12.9 Hypertensive chronic kidney disease with stage 1 through stage 4 chronic kidney disease, or unspecified chronic kidney disease; N18.32 Chronic kidney disease, stage 3b; D50.9 Iron deficiency anemia, unspecified; R94.31 Abnormal electrocardiogram [ECG] [EKG]
CPT/HCPCS: 71046; 80053; 80061; 83036; 85025; 93005